=== PATIENT | female | born 1975 | race Hispanic/Latino ===

== ENCOUNTER 2017-03-30 14:42 | Emergency (ER) | payer SELFPAY ==
[~2017-03-30] VITALS: Ht 157.5 cm; Wt 65.8 kg
[~2017-03-30 14:42] MED LIST: AMOX500C2 PO; CYCL10TA9 PO; DIABETIC MEDICATION PO; DICY20TA57 PO; FLUO20CA25 PO; IBUP-1773 PO; LMT25T PO; LORA10TA7 PO; METF500T8 PO; MTF500T PO; OLAN1CAP PO; ONDA-43 PO; POLY17PO23 PO; QTP25T PO; SULF1TAB35 PO; TOPI25CA2 PO; TRAM50TA2 PO; ZLP10T PO
--- OUTSIDE RECORDS SUMMARY | 2017-03-30 14:49 | XMS REPORT ---
Author Author FILIBERTO SCHMIDT [facility] eClinicalWorks Address Unknown Phone Unavailable Care Team Providers Care Commercial Sales Manager Name Role Phone FILIBERTO SCMHIDT CP Unavailable Allergies No Known Allergies Problems Problem Type Condition ICD-9 Code Onset Dates Condition Status Problem Screening for malignant neoplasm of the cervix V76.2 Active Problem Other specified menopausal and postmenopausal disorder 627.8 Active Problem Special screening examination, human papillomavirus [HPV] V73.81 Active Problem Other mental problems V40.2 Active Problem Shortness of breath 786.05 Active Problem Unspecified viral infection, in conditions classified elsewhere and of unspecified site 079.99 Active Problem Unspecified episodic mood disorder 296.90 Active Problem Family history of diabetes mellitus V18.0 Active Problem Vomiting alone 787.03 Active Problem Other and unspecified bipolar disorders 296.89 Active Problem Mastodynia 611.71 Active Problem Unspecified peripheral vertigo 386.10 Active Problem Cellulitis and abscess of unspecified site 682.9 Active Problem Other abnormal glucose 790.29 Active Problem Bipolar disorder, unspecified 296.80 Active Problem Abdominal pain, generalized 789.07 Active Problem Candidiasis of vulva and vagina 112.1 Active Problem Contusion of shoulder region 923.00 Active Problem Lumbago 724.2 Active Problem Spasm of muscle 728.85 Active Problem Urinary tract infection, site not specified 599.0 Active Problem Diabetes mellitus without mention of complication, type II or unspecified type, not stated as uncontrolled 250.00 Active Problem Insomnia, unspecified 780.52 Active Problem Screening examination for venereal disease V74.5 Active Medications No Known Medications Results No Known Results Summary Purpose eClinicalWorks Submission
--- OUTSIDE RECORDS SUMMARY | 2017-03-30 14:49 | XMS REPORT ---
Author Author FILIBERTO SCHMIDT eClinicalWorks Address Unknown Phone Unavailable Care Team Providers Care Tannery Gummer Name Role Phone FILIBERTO SCHMIDT CP Unavailable Allergies No Known Allergies Problems Problem Type Condition Code Onset Dates Condition Status Problem Screening [...]
--- OUTSIDE RECORDS SUMMARY | 2017-03-30 14:49 | XMS REPORT ---
Author Author FILIBERTO SCHMIDT [facility] eClinicalWorks Address Unknown Phone Unavailable Care Team Providers Care Communications Technologist Name Role Phone FILIBERTO SCHMIDT CP Unavailable Allergies No Known Allergies Problems Problem Type Condition Code Onset Dates Condition Status Problem Diabetes mellitus without mention of complication, type II or unspecified type, not stated as uncontrolled 250.00 Active Problem Screening for malignant neoplasm of the cervix V76.2 Active Problem Family history of diabetes mellitus V18.0 Active Problem Special screening examination, human papillomavirus [HPV] V73.81 Active Problem Unspecified episodic mood disorder 296.90 Active Problem Other specified menopausal and postmenopausal disorder 627.8 Active Problem Other and unspecified bipolar disorders 296.89 Active Problem Mastodynia 611.71 Active Problem Generalized anxiety disorder F41.1 Active Problem Vomiting alone 787.03 Active Problem Candidiasis of vulva and vagina 112.1 Active Problem Abdominal pain, generalized 789.07 Active Problem 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 Active Problem Shortness of breath 786.05 Active Problem Unspecified peripheral vertigo 386.10 Active Problem Cellulitis and abscess of unspecified site 682.9 Active Problem Other mental problems V40.2 Active Problem Unspecified viral infection, in conditions classified elsewhere and of unspecified site 079.99 Active Problem Spasm of muscle 728.85 Active Problem Insomnia, unspecified 780.52 Active Problem Other abnormal glucose 790.29 Active Problem Bipolar disorder, unspecified 296.80 Active Problem Urinary tract infection, site not specified 599.0 Active Problem Screening examination for venereal disease V74.5 Active Problem Contusion of shoulder region 923.00 Active Problem Lumbago 724.2 Active Medications Medication Code System Code Instructions Start Date End Date Status Dosage Zyprexa [facility] [address]-71 5 MG Orally Once a day Jul 26, 2015 1 tablet Prozac [facility] [address]-53 20 MG Orally Once a day Jul 26, 2015 1 capsule in the morning Results No Known Results Summary Purpose eClinicalWorks Submission
--- OUTSIDE RECORDS SUMMARY | 2017-03-30 14:49 | XMS REPORT ---
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 Active Problem Diabetes mellitus without mention of [...] Instructions Start Date End Date Status Dosage HydrOXYzine Pamoate [facility] [address]-97 25 MG Orally at bedtime for anxiety as needed January 24, 2016 1 capsule as needed Prozac [facility] [address]-35 20 mg Orally Once a day Jul 26, 2015 1 capsule in the morning Depuk healthcarete [facility] [address]-00 500 MG Orally Once a day at bedtime February 14, 2016 1 tablet Procedures Procedure Coding System Code Date MH Office Visit, Est Pt., Level 4 CPT-4 84437 May 22, 2016 Vital Signs Date/Time: May 22, 2016 Cardiac Monitoring Heart Rate 84 bpm Weight 177.3 lbs Height 62 in BMI 32.43 Index Blood Pressure Diastolic 77 mmHg Blood Pressure Systolic 119 mmHg Results No Known Results Summary Purpose eClinicalWorks Submission
--- OUTSIDE RECORDS SUMMARY | 2017-03-30 14:49 | XMS REPORT ---
Author Author FILIBERTO SCHMIDT eClinicalWorks Address Unknown Phone Unavailable Care Team Providers Care Dealer Account Manager Name Role Phone FILIBERTO SCHMIDT CP Unavailable [...] Start Date End Date Status Dosage Zyprexa [facility] [address]-23 5 MG Orally Once a day Jul 26, 2015 1 tablet Prozac [facility] [address]-23 20 MG Orally Once a day Jul 26, 2015 1 capsule in the morning Procedures Procedure Coding System Code Date Office Visit, Est Pt., Level 4 CPT-4 64289 Jul 26, 2015 Vital Signs Date/Time: Jul 26, 2015 Temperature 98.2 F Weight 142.0 lbs Height 62 in BMI 25.97 Index Blood Pressure Diastolic 70 mmHg Blood Pressure Systolic 102 mmHg Cardiac Monitoring Heart Rate 80 bpm Results No Known Results Summary Purpose eClinicalWorks Submission
--- OUTSIDE RECORDS SUMMARY | 2017-03-30 14:49 | XMS REPORT ---
Author Author FILIBERTO SCHMIDT [facility] eClinicalWorks Address Unknown Phone Unavailable Care Team Providers Care Accessioner Name Role Phone FILIBERTO SCHMIDT CP Unavailable [...] 923.00 Active Problem Lumbago 724.2 Active Medications No Known Medications Results No Known Results Summary Purpose eClinicalWorks Submission
--- OUTSIDE RECORDS SUMMARY | 2017-03-30 14:49 | XMS REPORT ---
Author Author JOSESITO LUKE [facility] eClinicalWorks Address Unknown Phone Unavailable Care Team Providers Care Director Of Food And Nutrition Services Name Role Phone JOSESITO LUKE CP Unavailable Allergies, Adverse Reactions, Alerts Substance Reaction Event Type Zyprexa rash Drug Allergy Cipro rash Drug Allergy Problems Problem Type Condition Code Onset Dates Condition Status Assessment Otalgia of right ear H92.01 Active Problem Diabetes mellitus without mention of [...] Instructions Start Date End Date Status Dosage Seroquel XR [facility] [address]-18 150 MG TAKE ONE TABLET BY MOUTH DAILY 4 HOURS BEFORE BEDTIME Lamictal [facility] [address]-36 25 MG Orally Twice a day January 30, 2015 1 tablet Procedures Procedure Coding System Code Date Office Visit, Est Pt., Level 2 CPT-4 50462 Jul 26, 2015 Vital Signs Date/Time: Jul 26, 2015 Temperature 98.2 F Weight 142.0 lbs Height 62 in BMI 25.97 Index Blood Pressure Diastolic 70 mmHg Blood Pressure Systolic 100 mmHg Cardiac Monitoring Heart Rate 80 bpm Results No Known Results Summary Purpose eClinicalWorks Submission
--- OUTSIDE RECORDS SUMMARY | 2017-03-30 14:49 | XMS REPORT ---
Author Author FILIBERTO SCHMIDT [facility] Address [address] [place] [address] Care Team Providers Care Architectural Examiner Name Role Phone FILIBERTO SCHMIDT Unavailable PROBLEMS Type Condition ICD9-CM Code TNZ00-EB Code Onset Dates Condition Status SNOMED Code Problem Diabetes mellitus without mention of complication, type II or unspecified type, not stated as uncontrolled 250.00 Active 501627536 Problem Family history of diabetes mellitus V18.0 Active 475452951 Problem Unspecified episodic mood disorder 296.90 Active 170827540 Problem Other specified menopausal and postmenopausal disorder 627.8 Active 258020797 Problem Shortness of breath 786.05 Active 114032123 Problem Mastodynia 611.71 Active 18479918 Problem Abdominal pain, generalized 789.07 Active 283838975 Problem Other and unspecified bipolar disorders 296.89 Active 02024058 Problem Unspecified peripheral vertigo 386.10 Active 95247286 Problem Cellulitis and abscess of unspecified site 682.9 Active 782760658 Problem Bipolar disorder in remission F31.70 Active 59608631 Problem 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 Active 03113219 Problem Bipolar disorder, unspecified 296.80 Active 59011465 Problem Other abnormal glucose 790.29 Active 641892170 Problem Candidiasis of vulva and vagina 112.1 Active 51215599 Problem Other mental problems V40.2 Active Problem Unspecified viral infection, in conditions classified elsewhere and of unspecified site 079.99 Active 09460472 Problem Generalized anxiety disorder F41.1 Active 79460448 Problem Vomiting alone 787.03 Active 548149461 Problem Contusion of shoulder region 923.00 Active 00288596 Problem Lumbago 724.2 Active 924188648 Problem Spasm of muscle 728.85 Active 60251020 Problem Insomnia, unspecified 780.52 Active 536599324 Problem Screening for malignant neoplasm of the cervix V76.2 Active 045675827 Problem Special screening examination, human papillomavirus [HPV] V73.81 Active 663671743 Problem Urinary tract infection, site not specified 599.0 Active 76649349 Problem Screening examination for venereal disease V74.5 Active 526585498 ALLERGIES Unknown Allergies SOCIAL HISTORY No smoking Hx information available PLAN OF CARE VITAL SIGNS MEDICATIONS Unknown Medications RESULTS No Results PROCEDURES No Known procedures IMMUNIZATIONS No Known Immunizations
--- OUTSIDE RECORDS SUMMARY | 2017-03-30 14:50 | XMS REPORT ---
Author Author FILIBERTO SCHMIDT [facility] eClinicalWorks Address Unknown Phone Unavailable Care Team Providers Care Project Estimator Name Role Phone FILIBERTO SCHMIDT CP Unavailable [...] Instructions Start Date End Date Status Dosage Depakote ER [facility] [address]-12 500 MG Orally Once a day at bedtime February 14, 2016 1 tablet [facility] [address] 180 MG Orally 2 times a day for 7 days February 14, 2016 1 tablet Results No Known Results Summary Purpose eClinicalWorks Submission
--- NOTE | 2017-03-30 16:59 | ED Psychosocial ---
General Chief Complaint: Psych/Social Disorder Stated Complaint: SOA Nursing Triage Note: SOB, CHILLS AFTER TAKING NEW ANTIDEPRESSANT TODAY. STATES SHE TOOK THE PILL, FELT LIKE SHE WAS CHOKING THEN SOB. Source: patient Exam Limitations: no limitations History of Present Illness Initial Comments Behavioral health provider is Delisa Valencia. Allergies and Home Medications Allergies Coded Allergies: ciprofloxacin (Verified Allergy, 06/05/11) ciprofloxacin HCl (Verified Allergy, 06/05/11) olanzapine (Unverified Adverse Reaction, Mild, rash, 01/15/12) Home Medications Fluoxetine Hcl 20 Mg Capsule, 1 EACH PO DAILY, (Reported) Ibuprofen 600 Mg Tablet, 600 MG PO Q6H PRN for PAIN, #20 Prescribed by: KAVON MEYERS on 11/12/13151 Lamotrigine 25 Mg Tab, 25 MG PO DAILY, (Reported) Metformin Hcl 500 Mg Tab.sr.24h, 2 EACH PO BID WITH MEALS, (Reported) Polyethylene Glycol 17 Gm Pack, 17 GM PO DAILY PRN for CONSTIPATION, #30 1-2 times daily FOR CONSTIPATION Prescribed by: KAVON MEYERS on 11/12/13151 Quetiapine Fumarate 25 Mg Tablet, 3 TAB PO HS, (Reported) Past Ointsrs-Lcerth-Ixcdjw Hx Patient Social History Alcohol Use: Denies Use Recreational Drug Use: No Smoking Status: Never a Smoker Recent Foreign Travel: No Contact w/Someone Who Travel: No Recent Infectious Disease Expo: No Immunizations Up To Date Date of Influenza Vaccine: Jul 03, 2013 Surgeries History of Surgeries: Yes Surgeries: Appendectomy, Tubal Ligation Respiratory History of Respiratory Disorde: No Cardiovascular History of Cardiac Disorders: No Neurological History of Neurological Disord: No Reproductive System Hx Reproductive Disorders: No (STATES MENSES EVERY MONTH , NONE IN SEP) Gastrointestinal History of Gastrointestinal Di: No Musculoskeletal History of Musculoskeletal Dis: No Endocrine History of Endocrine Disorders: Yes Endocrine Disorders: Diabetes, Non-Insulin dep Cancer History of Cancer: No Psychosocial History of Psychiatric Problem: Yes Behavioral Health Disorders: Sleep Difficulties, Depression Physical Exam Vital Signs Vital Sign - Last 12Hours 03/30/17 14:45 Temp 97.5 Pulse 87 Resp 18 B/P (MAP) 130/99 Pulse Ox 99 Capillary Refill : Less Than 3 Seconds Progress/Results/Core Measures Results/Orders Vital Signs/I&O Vital Sign - Last 12Hours 03/30/17 14:45 Temp 97.5 Pulse 87 Resp 18 B/P (MAP) 130/99 Pulse Ox 99 Blood Pressure Mean: 109 Departure Impression Impression: Primary Impression: Severe anxiety about anesthesia and home medications Additional Impression: Insomnia Qualified Codes: G47.00 - Insomnia, unspecified Disposition: HOME, SELF-CARE Condition: Improved Departure-Patient Inst. Decision time for Depature: 16:56 Referrals: NO,LOCAL PHYSICIAN (PCP/Family) Primary Care Physician Patient Instructions: Anxiety, Adult (DC), Insomnia Add. Discharge Instructions: I suggest talking to your prescriber about decreasing your Seroquel dose before you try it again. When you take it again, make sure somebody is nearby to help you if you have any problems. Because you have problems with taking any kind of pill, talk to your behavioral health provider about desensitizing your self to taking pills. All discharge instructions reviewed with patient and/or family. Voiced understanding. Copy Copies To 1: NADIA QUIÑONEZ MD, JOSHUA T MD Mar 30, 2017 16:59
[2017-03-30 17:12] VITALS: BP 120/75
== END 2017-03-30 17:12 | disposition home or self-care (01) ==
LOC: EDUNIT# 14:42 → ER 14:45
DX: F41.8 Other specified anxiety disorders (principal); G47.00 Insomnia, unspecified; E11.9 Type 2 diabetes mellitus without complications; F32.9 Major depressive disorder, single episode, unspecified; Z79.84 Long term (current) use of oral hypoglycemic drugs; Z90.49 Acquired absence of other specified parts of digestive tract; Z98.51 Tubal ligation status
CPT/HCPCS: 99283

== ENCOUNTER → 2017-10-26 | Outpatient (CLI) | payer BC ==
--- NOTE | 2017-10-26 19:41 | Diagnostic Imaging Report ---
INDICATION: Palpable lump in the right breast. COMPARISON: No prior studies are available for comparison. A BB marker was placed at the area of palpable abnormality in the upper-outer right breast. Bilateral 3-D CC and MLO views as well as the right-sided ML and exaggerated CC view were performed. The current study was also evaluated with a Computer Aided Detection (CAD) system. FINDINGS: Moderate density is noted bilaterally. No abnormality in the right breast at the area of palpable abnormality is seen. There is a rounded density in the upper-outer left breast at 8 cm from the nipple, likely a cyst. No suspicious calcifications are seen. The axillae are unremarkable. IMPRESSION: 1. No mammographic abnormality at the area of palpable abnormality in the upper-outer right breast. Further evaluation of this area with ultrasound is recommended. 2. Circumscribed density in the upper-outer left breast, 8 cm from the nipple, likely a cyst. Further evaluation of this area with ultrasound is recommended as well. ACR BI-RADS Category 0: Incomplete. (Needs additional imaging evaluation). Result letter will be mailed to the patient. Note: At least 10% of breast cancer is not imaged by mammography. Dictated by: Dictated on workstation # [id number]
--- NOTE | 2017-10-26 19:49 | Diagnostic Imaging Report ---
INDICATION: Palpable lump in the upper-outer right breast as well as abnormal mammogram of the left breast. The study is performed for further evaluation. COMPARISON: Correlation is made with diagnostic mammogram earlier the same day. FINDINGS: RIGHT BREAST: Sonographic interrogation of the area of lump in the upper-outer right breast was performed. No solid or cystic mass is identified. LEFT BREAST: Sonographic interrogation of the upper-outer left breast was performed. At the 1:30 location, 8 cm from the nipple, there is a macrolobulated hypoechoic solid appearing mass measuring 1.7 x 0.9 x 1.5 cm. This appears to demonstrate posterior acoustic enhancement and is most suggestive of a fibroadenoma. This does correspond in size and location to the mammographic density. No other abnormalities are seen. IMPRESSION: 1. No sonographic abnormality at the area of palpable abnormality in the upper-outer right breast. Continued close clinical followup and self-breast exam of the area of palpable abnormality is recommended to confirm stability. 2. Macrolobulated hypoechoic solid mass at the 1:30 location of the left breast, with features most suggestive of a fibroadenoma. Followup ultrasound in six months is recommended to confirm stability. ACR BI-RADS Category 3: Probably benign findings. Dictated by: Dictated on workstation # [id number]
== END ==
LOC: RAD 13:14
PROVIDERS: ATTEND Nurse Practitioner Family
DX: N63.21 Unspecified lump in the left breast, upper outer quadrant (principal); N63.10 Unspecified lump in the right breast, unspecified quadrant
CPT/HCPCS: 76642; 77066

== ENCOUNTER 2018-01-27 14:23 | Emergency (ER) | payer SELFPAY ==
[~2018-01-27] VITALS: Ht 157.5 cm; Wt 71.7 kg
--- OUTSIDE RECORDS SUMMARY | 2018-01-27 14:31 | XMS REPORT ---
Author Author ALEXANDRU ARACELIS Organization 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 Name Role Phone JASWANTMARCELLUS ARACELIS Unavailable PROBLEMS Type Condition ICD9-CM Code AYL76-BU Code Onset Dates Condition Status SNOMED Code Problem History of hypertension Z86.79 Active 024255865 Problem Elevated LDL cholesterol level E78.00 Active 620342550 Problem Personality disorder F60.9 Active 69164245 Problem Other chronic pain G89.29 Active 67033713 Problem Hypoglycemia E16.2 Active 299200046 Problem Acute seasonal allergic rhinitis, unspecified trigger J30.2 Active 141663712 Problem Type 2 diabetes mellitus without complication, without long-term current use of insulin E11.9 Active 228970615 Problem Primary insomnia F51.01 Active 3749265 Problem Acute non intractable tension-type headache G44.209 Active 331274431 Problem Generalized anxiety disorder F41.1 Active 82421005 Problem Bipolar disorder in remission F31.70 Active 96171711 Problem Family history of diabetes insipidus Z83.49 Active 664265908 Problem Abnormal CBC R79.89 Active 313552508 Problem Bipolar disorder, current episode mixed, mild F31.61 Active 342416543 Problem History of diabetes mellitus Z86.39 Active 626799499 Problem Overweight (BMI 25.0-29.9) E66.3 Active 505710773 Problem Sore throat J02.9 Active 070505268 ALLERGIES Substance Reaction Event Type Date Status MetFORMIN HCl ER nausea Drug Allergy Aug, Active Zyprexa rash Drug Allergy Aug, Active Cipro rash Drug Allergy Aug, Active ENCOUNTERS Encounter Location Date Diagnosis [facility] [address] [facility] [id number] [address] Jan, [facility] [address] [facility] [id number], [place] [address] Jan, Bipolar disorder, current episode mixed, mild F31.61 and Personality disorder F60.9 [facility] [id number] [place] [address] 98787- 4591 Jan, Cyst of ovary, unspecified laterality N83.209 [facility] [id number] [place] [address] 21709- 9379 December, Cyst of ovary, unspecified laterality N83.209 [facility] [id number] [place] [address] 90439- 8913 December, [place] [address] [address]79- 6415 December, Dysuria R30.0 [place] [address] 68468- 8469 December, [facility] [address] 87397- 3390 Nov, Bipolar disorder, current episode mixed, mild F31.61 and Personality disorder F60.9 [facility] [id number] [place] [address] 01935- 8751 Nov, Elevated LDL cholesterol level E78.00 and Type 2 diabetes mellitus without complication, without long-term current use of insulin E11.9 [facility] [id number] [place] [address] 22915- 4599 Nov, Elevated LDL cholesterol level E78.00 and Type 2 diabetes mellitus without complication, without long-term current use of insulin E11.9 [facility] [id number] [place] [address] 87205- 3893 Nov, Other chronic pain G89.29 and Pain in left leg M79.605 [facility] [id number] [place] [address] 77751- 4156 02 Nov, 2017 Acute pain of left knee M25.562 ; Syncope, unspecified syncope type R55 and Hypoglycemia E16.2 [place] [address] 59050- 2406 30 Oct, 2017 Syncope, unspecified syncope type R55 [facility] [id number] [place] [address] 14237- 5106 Oct, Bipolar disorder, current episode mixed, mild F31.61 and Personality disorder F60.9 [place] [address] 92865- 3800 Oct, Lump of right breast N63.10 [facility] [id number] [place] [address] 91727- 7857 Oct, Generalized anxiety disorder F41.1 [place] [address] 61861- 9435 Oct, Generalized anxiety disorder F41.1 ; Bipolar disorder in remission F31.70 ; Bipolar disorder, current episode mixed, mild F31.61 and Primary insomnia F51.01 [place] [address] 19299- 9339 Oct, Primary insomnia F51.01 and Lump of right breast N63.10 [place] [address] 30616- 4371 16 Oct, 2017 Enteritis K52.9 [facility] [id number] [place] [address] 17074 -3810 14 Oct, 2017 Allergic conjunctivitis of both eyes H10.13 and Acute non intractable tension-type headache G44.209 [facility] [id number] [place] [address] 89333- 1238 14 Oct, 2017 [facility] [id number] [place] [address] 69743- 9052 Oct, Bipolar disorder, current episode mixed, mild F31.61 [facility] [id number] [place] [address] 38469- 8039 Sep, Right flank pain R10.9 and Thoracic spine pain M54.6 [facility] [address] [place] [address] 2191 16 Sep, 2017 Generalized anxiety disorder F41.1 and Bipolar disorder, current episode mixed, mild F31.61 [facility] [id number] [place] [address] 03037- 3283 14 Sep, 2017 [facility] [place] [id number] [place] [address] 03988- 3003 Sep, Generalized anxiety disorder F41.1 ; Bipolar disorder in remission F31.70 and Personality disorder F60.9 [facility] [id number] [place] [address] 94466- 2710 12 Sep, 2017 Spasm of thoracic back muscle M62.830 ; Type 2 diabetes mellitus without complication, without long-term current use of insulin E11.9 and Generalized anxiety disorder F41.1 [facility] [id number] [place] [address] 34858- 0251 Sep, Bipolar disorder, current episode mixed, mild F31.61 and Personality disorder F60.9 [place] [id number] [place] [address] 27988- 4235 Aug, [facility] [id number] [place] [address] 04728- 4656 Aug, Bipolar disorder, current episode mixed, mild F31.61 and Personality disorder F60.9 [place] [id number] [place] [address] 77320- 6221 Aug, Type 2 diabetes mellitus without complication, without long- term current use of insulin E11.9 ; Generalized anxiety disorder F41.1 ; Bipolar disorder in remission F31.70 and Overweight (BMI 25.0-29.9) E66.3 [place] [id number] [place] [address] 52905- 5194 Aug, Type 2 diabetes mellitus without complication, without long- term current use of insulin E11.9 ; Elevated LDL cholesterol level E78.00 and Bipolar disorder, current episode mixed, mild F31.61 [facility] [id number] [place] [address] 42329 -7694 Jul, Vaginal discharge N89.8 ; Skin irritation R23.8 and Dysuria R30.0 [facility] [id number] [place] [address] 30333 -4462 Jul, Acute seasonal allergic rhinitis, unspecified trigger J30.2 and Chest pain, unspecified type R07.9 [place] [id number] [place] [address] 03990- 6601 Jun, Bipolar disorder, current episode mixed, mild F31.61 [place] [address] 955719- 5652 Jun, [place] [address] 486289- 4291 Jun, Bipolar disorder, current episode mixed, mild F31.61 and Personality disorder F60.9 [place] [id number] [place] [address] 46278- 8359 Jun, [place] [id number] [place] [address] 81925- 6735 Jun, Type 2 diabetes mellitus without complication, without long- term current use of insulin E11.9 and Dysuria R30.0 [place] [id number] [place] [address] 08351- 9195 May, Bipolar disorder, current episode mixed, mild F31.61 ; Personality disorder F60.9 and Homeless Z59.0 [place] [id number] [place] [address] 50380- 3947 May, Type 2 diabetes mellitus without complication, without long- term current use of insulin E11.9 [place] [id number] [place] [address] 45404- 1168 May, History of hypertension Z86.79 [facility] [id number] [place] [address] 04446- 9948 May, [place] [id number] [place] [address] 04800- 5000 02 May, 2017 Type 2 diabetes mellitus without complication, without long- term current use of insulin E11.9 ; Elevated LDL cholesterol level E78.00 ; Low serum HDL R74.8 and Encounter for immunization Z23 [facility] [id number] [place] [address] 94442- 4036 Apr, Encounter to establish care Z76.89 ; Abnormal CBC R79.89 ; History of hypertension Z86.79 ; Overweight (BMI 25.0-29.9) E66.3 ; Family history of diabetes insipidus Z83.49 ; Sore throat J02.9 and Tonsillitis with exudate J03.90 [place] [address] 10287- 0070 Apr, Bipolar disorder, current episode mixed, mild F31.[address] 28718- 2118 Mar, [place] [address] 65398- 5326 Mar, Bipolar disorder, current episode mixed, mild F31.61 [place] [address] 13746- 5621 Mar, [place] [address] 95501- 6162 Mar, Bipolar disorder in remission F31.70 [place] [id number] [place] [address] 35672- 4341 Jan, [place] [address] 27025- 2036 Jan, [address] 47353- 8910 Oct, Generalized anxiety disorder F41.1 and Bipolar disorder in remission F31.70 [place] [address] 04792- 6352 Oct, [facility] [address] [address]288 Oct, [facility] [address] [address] 9572 Oct, [facility] [address] [address] 4986 Oct, [facility] [id number] [place] [address] 44508- 5339 Jul, [facility] [address], [place] [address]- 9211 Jun, [facility] [address] [place] [address] 57323- 3636 May, 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 and Generalized anxiety disorder F41.1 [facility] [address] [place] [address] 10641- 7966 Jan, [facility] [address] [address]- 3139 Jan, [facility] [address] [place] [address] 353286- 9470 Jan, 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 and Generalized anxiety disorder F41.1 [facility] [address], [place] [address]- 7026 Sep, [facility] [address], [place] [address]- 69[address] Sep, [facility] [id number] [address]- 6432 Jul, 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 and Generalized anxiety disorder F41.1 [facility] [address] 4206 Jul, Otalgia of right ear H92.01 [facility] [address], [place] [address]- 6969 Jun, [facility] [address], [place] [address]- 4769 Mar, [facility] [address], [place] [address]- 6570 Jan, [facility] [id number] [place] [address] 09393- 2853 Jan, [facility] [id number] [place] [address] 19590- 0894 Jan, Bipolar 1 disorder, mixed, moderate 296.62 and SHERRY ( generalized anxiety disorder) 300.02 [facility] [id number] [place] [address] 535713- 6454 Jan, [facility] [id number] [place] [address] 45091- 3833 Nov, [facility] [id number] [place] [address] 44130- 0070 Nov, [facility] [address], [place] [address]- 8016 Oct, [facility] [address] 1805 Oct, [facility] [address], [place] [address]- 1075 Mar, [facility] [address], [place] [address]- 8907 Mar, [facility] [address] 4061 Jan, [facility] [address] 5213 Jan, [facility] [address], [place] [address]- 2609 December, [facility] [id number] [address]- 4024 December, [facility] [place] [facility] [address] [id number] [place] [address]- 5186 December, [facility] [place] [facility] [address] [id number] [place] [address]- 3173 December, [facility] [place] [facility] [address] [id number] [place] [address]- 6586 December, [facility] [place] [facility] [address] [id number] [place] [address]- 1145 December, [facility] [place] [facility] [address] [id number] [place] [address]- 3950 December, [facility] [place] [facility] [address] [id number] [place] [address]- 7803 December, [facility] [place] [facility] [address] [id number] [place] [address]- 8059 Nov, [facility] [place] [facility] [address] [id number] [place] [address]- 4676 Nov, [facility] [place] [facility] [address] [id number] [place] [address]- 0971 Oct, [facility] [place] [facility] [address] [id number] [place] [address]- 9843 Oct, [facility] [place] [facility] [address] [id number] [place] [address]- 4148 Oct, [facility] [place] [facility] [address] [id number] [place] [address]- 3420 Oct, [facility] [place] [facility] [address] [id number] [place] [address]- 7380 Oct, [facility] [place] [facility] [address] [id number] [place] [address]- 3527 Sep, [facility] [place] [facility] [address] [id number] [place] [address]- 5868 Sep, [facility] [place] [facility] [address] [id number] [place] [address]- 3883 14 Sep, 2013 [facility] [place] [facility] [address] [id number] [place] [address]- 6342 14 Sep, 2013 [facility] [place] [facility] [address] [id number] [place] [address]- 1855 27 Aug, 2013 [facility] [place] [facility] [address] [id number] [place] [address]- 1683 27 Aug, 2013 [facility] [place] [facility] [address] [id number] [place] [address]- 2105 Aug, [facility] [place] [facility] [address] [id number] [place] [address]- 9575 Aug, [facility] [place] [facility] [address] [id number] [place] [address]- 1109 Aug, [facility] [place] [facility] [address] [id number] [place] [address]- 1110 16 Jul, 2013 [facility] [place] [facility] [address] [id number] [place] [address]- 2823 Jul, [facility] [place] [facility] [address] [id number] [place] [address]- 4495 Jul, [facility] [place] [facility] [address] [id number] [place] [address]- 3820 Jul, [facility] [place] [facility] [address] [id number] [place] [address]- 4753 Jun, [facility] [place] [facility] [address] [id number] [place] [address]- 0914 Jun, [facility] [place] [facility] [address] [id number] [place] [address]- 7040 May, [facility] [place] [facility] [address] [id number] [place] [address]- 6136 May, [facility] [place] [facility] [address] [id number] [place] [address]- 3486 May, [facility] [place] [facility] [address] [id number] [place] [address]- 2228 18 May, 2013 [facility] [place] [facility] [address] [id number] [place] [address]- 1012 May, [facility] [place] [facility] [address] [id number] [place] [address]- 2504 15 May, 2013 [facility] [place] [facility] [address] [id number] [place] [address]- 6948 May, [facility] [place] [facility] [address] [id number] [place] [address]- 4176 May, [facility] [place] [facility] [address] [id number] [place] [address]- 9527 May, [facility] [place] [facility] [address] [id number] [place] [address]- 2515 Apr, [facility] [place] [facility] [address] [id number] [place] [address]- 5758 Apr, [facility] [place] [facility] [address] [id number] [place] [address]- 1194 Mar, [facility] [place] [facility] [address] [id number] [place] [address]- 1772 Mar, [facility] [place] [facility] [address] [id number] [place] [address]- 9873 Mar, [facility] [place] [facility] [address] [id number], [place] [address]- 1624 Mar, [facility] [place] [facility] [address] [id number] [place] [address]- 1375 Mar, [facility] [place] [facility] [address] [id number] [place] [address]- 7694 Mar, [facility] [place] [facility] [address] [id number] [place] [address]- 0372 Mar, [facility] [place] [facility] [address] [id number] [place] [address]- 3817 Mar, [facility] [address] [id number] [place] [address]- 3288 Mar, [facility] [address] [id number] [place] [address]- 1837 Mar, [facility] [address] [id number] [place] [address]- 4863 Mar, [facility] [address] [id number] [place] [address]- 0899 Jan, [facility] [address] [id number] [place] [address]- 6408 Jan, [facility] [address] [id number] [place] [address]- 1138 Jan, [facility] [address] [id number] [place] [address]- 9096 December, [facility] [address] [id number] [place] [address]- 5297 December, [facility] [address] [id number] [place] [address]- 7816 Nov, [facility] [address] [id number] [place] [address]- 2381 Nov, [facility] [address] [id number] [place] [address]- 9727 Oct, [facility] [address] [id number] [place] [address]- 9670 Oct, [facility] [address] [id number] [place] [address]- 8775 Oct, [facility] [address] [id number] [place] [address]- 5477 Oct, [facility] [address] [id number] [place] [address]- 7697 Oct, [facility] [place] [facility] [address] [id number] [place] [address]- 4230 19 Oct, 2012 [facility] [address] [id number] [place] [address]- 9023 17 Oct, 2012 [facility] [address] [id number] [place] [address]- 9077 16 Oct, 2012 [facility] [place] [facility] [address] [id number] [place] [address]- 5983 14 Oct, 2012 [facility] [address] [id number] [place] [address]- 2981 13 Oct, 2012 [facility] [place] [facility] [address] [id number] [place] [address]- 6243 05 Oct, 2012 [facility] [address] [id number] [place] [address]- 4585 14 Sep, 2012 [facility] [address] [id number] [place] [address]- 4849 08 Sep, 2012 [facility] [place] [facility] [address] [id number] [place] [address]- 6214 Aug, [facility] [address] [id number], [place] [address]- 3003 Aug, [facility] [address] [id number], [place] [address]- 0260 Aug, [facility] [place] [facility] [address] [id number], [place] [address]- 8451 Aug, [facility] [place] [facility] [address] [id number] [place] [address]- 1671 Aug, [facility] [place] [facility] [address] [id number] [place] [address]- 2216 Jul, [facility] [place] [facility] [address] [id number], [place] [address]- 9324 Jul, [facility] [place] [facility] [address] [id number], [place] [address]- 7943 Jul, [facility] [address] [id number] [place] [address]- 9356 19 Jul, 2012 [facility] [place] [facility] [address] [id number] [place] [address]- 1376 18 Jul, 2012 [facility] [address] [facility] [id number] [place] [address]- 3596 17 Jul, 2012 [facility] [place] [facility] [address] [id number] [place] [address] 14 Jul, 2012 [facility] [address] [id number] [place] [address] 14 Jul, 2012 [facility] [address] [id number] [place] [address] Jul, [facility] [id number] [address] Jul, [facility] [place] [facility] [address] [id number] [place] [address] Jul, [facility] [place] [facility] [address] [id number] [address] 05 Jul, 2012 [facility] [place] [facility] [address] [facility] [id number] [place] [address] Jul, [facility] [place] [facility] [address] [facility] [id number] [place] [address] Jul, [facility] [place] [facility] [address] [id number] [address] Jul, [facility] [place] [facility] [address] [id number] [place] [address] Jul, [facility] [place] [facility] [address] [facility] [id number] [place] [address] Jun, [facility] [place] [facility] [address] [id number] [address] Jun, [facility] [place] [facility] [address] [id number] [place] [address] Jun, [facility] [place] [facility] [address] [id number] [place] [address] Jun, [facility] [place] [facility] [address] [id number] [place] [address]- [address] Jun, [facility] [place] [facility] [address] [id number] [place] [address] Jun, [facility] [place] [facility] [address] [id number] [place] [address] Jun, [facility] [place] [facility] [address] [id number] [place] [address] Jun, [facility] [place] [facility] [address] [id number] [place] [address] Jun, [facility] [place] [facility] [address] [id number] [place] [address] May, [facility] [place] [facility] [address] [id number] [place] [address] Mar, [facility] [place] [facility] [address] [id number] [place] [address] Mar, [facility] [place] [facility] [address] [id number] [place] [address] Mar, [facility] [place] [facility] [address] [id number] [place] [address] Mar, [facility] [place] [facility] [address] [id number] [place] [address] Jan, [facility] [place] [facility] [address] [id number] [place] [address] Jan, [facility] [place] [facility] [address] [id number] [place] [address] 94[address] Jan, [facility] [place] [facility] [address] [id number] [place] [address] Jan, [facility] [place] [facility] [address] [id number] [place] [address] Jan, [facility] [place] [facility] [address] [id number] [place] [address] Jan, [facility] [place] [facility] [address] [id number] [place] [address] December, [facility] [place] [facility] [address] [id number] [place] [address] December, [facility] [place] [facility] [address] [id number] [place] [address] Nov, [facility] [place] [facility] [address] [id number] [place] [address] Nov, [facility] [place] [facility] [address] [id number] [place] [address] Oct, [facility] [place] [facility] [address] [id number] [place] [address] Oct, [facility] [place] [facility] [address] [id number] [place] [address] Oct, [facility] [place] [facility] [address] [id number] [place] [address] Oct, [facility] [place] [facility] [address] [id number] [place] [address] Aug, [facility] [place] [facility] [address] [id number], [place] [address] Aug, [facility] [place] [facility] [address] [id number] [place] [address] Jun, [facility] [place] [facility] [address] [id number] [place] [address] Jun, [facility] [place] [facility] [address] [id number] [place] [address] Jun, [facility] [place] [facility] [address] [id number] [place] [address] Jun, [facility] [place] [facility] [address] [id number] [place] [address] Jun, [facility] [place] [facility] [address] [id number] [place] [address] May, [facility] [place] [facility] [address] [id number] [place] [address] May, [facility] [place] [facility] [address] [id number] [place] [address] May, [facility] [place] [facility] [address] [id number] [place] [address] May, [facility] [place] [facility] [address] [id number] [place] [address] May, [facility] [place] [facility] [address] [id number] [place] [address] May, [facility] [place] [facility] [address] [id number] [place] [address] May, [facility] [place] [facility] [address] [id number] [place] [address] Mar, [facility] [place] [facility] [address] [id number] [place] [address] May, [facility] [place] [facility] [address] [id number] [place] [address] Jan, [facility] [place] [facility] [address] [id number] [place] [address] Jul, [facility] [place] [facility] [address] [id number] [place] [address] 24 Jun, 2009 [facility] [place] [facility] [address] [id number] [place] [address] 16 Jun, 2009 [facility] [place] [facility] [address] [id number] [place] [address] Jun, [facility] [address] [facility] [id number] [address] Jun, [facility] [id number] [address] Jun, [facility] [id number] [address] May, [facility] [id number] [address] May, [facility] [id number], [place] [address] May, [facility] [id number], [place] [address] Jul, IMMUNIZATIONS No Known Immunizations SOCIAL HISTORY Never Assessed REASON FOR VISIT f/u Perez PLAN OF CARE Activity Details Follow Up 4 Weeks Reason: VITAL SIGNS Height 62 in 2017-08-12 Weight 154.2 lbs 2017-08-12 Heart Rate 84 bpm 2017-08-12 Respiratory Rate 20 2017-08-12 BMI 28.20 kg/m2 2017-08-12 Blood pressure systolic 118 mmHg 2017-08-12 Blood pressure diastolic 70 mmHg 2017-08-12 MEDICATIONS Medication Instructions Dosage Frequency Start Date End Date Duration Status Atorvastatin Calcium 10 mg Orally Once a day 1 tablet 24h May, 90 days Active Melatonin 5 MG Orally take at bedtime 1 tablet Apr, Active Glimepiride 1 MG Orally Once a day 1 tablet with breakfast or the first main meal of the day 24h May, Active Lisinopril 5 mg Orally Once a day 1 tablet 24h 90 days Active Glucocard Expression Test 1 subcutaneously 2 times a day test 2 times per day 12h May, 12 months Active Trazodone HCl 100 mg Orally at bedtime as needed for sleep 1-2 tabs Apr, Active BusPIRone HCl 15 MG Orally 3 times a day 1 tablet 8h Aug, 30 days Active Aspir-81 81 MG Orally Once a day 1 tablet 24h 26 Apr, 2017 Jan, 90 days Active Abilify 5 MG Orally Once a day at bedtime 1 tablet 30 days Active Flonase 50 MCG/ACT Nasally Once a day 1 spray in each nostril 24h Jul, 30 day(s) Not-Taking RESULTS No Results PROCEDURES No Known procedures INSTRUCTIONS MEDICATIONS ADMINISTERED No Known Medications MEDICAL (GENERAL) HISTORY Type Description Date Medical History hypertension Medical History depression (hx of suicidal plan in 2012) Medical History insomnia Medical History bipolar disorder Surgical History Appendix Surgical History Tubal Ligation Hospitalization History Child /surgery Hospitalization History psych inpatient treatment, [facility] 2011
--- OUTSIDE RECORDS SUMMARY | 2018-01-27 14:32 | XMS REPORT ---
Author Author ALEXANDRU ARACELIS Organization [facility] Address [address] [place] [address] Care Team Providers Care Filters Assembler Name Role Phone JASWANTMARCELLUS ARACELIS Unavailable PROBLEMS Type Condition ICD9-CM Code [id number] Code Onset Dates Condition Status SNOMED Code Problem History of hypertension Z86.79 Active 520832669 Problem Elevated LDL cholesterol level E78.00 Active 116708952 Problem Personality disorder F60.9 Active 29515861 Problem Other chronic pain G89.29 Active 83573093 Problem Hypoglycemia E16.2 Active 254430870 Problem Acute seasonal allergic rhinitis, unspecified trigger J30.2 Active 922844478 Problem Type 2 diabetes mellitus without complication, without long-term current use of insulin E11.9 Active 588031889 Problem Primary insomnia F51.01 Active 6357731 Problem Acute non intractable tension-type headache G44.209 Active 530773160 Problem Generalized anxiety disorder F41.1 Active 62587090 Problem Bipolar disorder in remission F31.70 Active 83003735 Problem Family history of diabetes insipidus Z83.49 Active 488320635 Problem Abnormal CBC R79.89 Active 796826945 Problem Bipolar disorder, current episode mixed, mild F31.61 Active 644807745 Problem History of diabetes mellitus Z86.39 Active 339181655 Problem Overweight (BMI 25.0-29.9) E66.3 Active 229351498 Problem Sore throat J02.9 Active 661160762 ALLERGIES No Information ENCOUNTERS Encounter Location Date Diagnosis [facility] [address] [facility] [id number] [address] Jan, [facility] [address], [place] [address] December, Dysuria R30.0 [facility] [id number] [address] December, [place] [id number] [place] [address] 40818- 5017 Nov, Bipolar disorder, current episode mixed, mild F31.61 and Personality disorder F60.9 [place] [id number] [place] [address] 01768- 6875 Nov, Elevated LDL cholesterol level E78.00 and Type 2 diabetes mellitus without complication, without long-term current use of insulin E11.9 [place] [id number] [place] [address] 18201- 9097 Nov, Elevated LDL cholesterol level E78.00 and Type 2 diabetes mellitus without complication, without long-term current use of insulin E11.9 [place] [id number] [place] [address] 20190- 2724 Nov, Other chronic pain G89.29 and Pain in left leg M79.605 [place] [address] [address]- [address] Nov, Acute pain of left knee M25.562 ; Syncope, unspecified syncope type R55 and Hypoglycemia E16.2 [place] [id number] [place] [address] 33875- 4759 Oct, Syncope, unspecified syncope type R55 [place] [id number] [place] [address] 03839- 6222 Oct, Bipolar disorder, current episode mixed, mild F31.61 and Personality disorder F60.9 [place] [address] [place] [address] 24648- 8827 Oct, Lump of right breast N63.10 [place] [id number] [place] [address] 95357- 7773 Oct, Generalized anxiety disorder F41.1 [place] [id number] [place] [address] 20319- 2131 Oct, Generalized anxiety disorder F41.1 ; Bipolar disorder in remission F31.70 ; Bipolar disorder, current episode mixed, mild F31.61 and Primary insomnia F51.01 [place] [id number] [place] [address] 86917- 1178 20 Oct, 2017 Primary insomnia F51.01 and Lump of right breast N63.10 [place] [id number] [place] [address] 29079- 6941 16 Oct, 2017 Enteritis K52.9 [facility] [address] [address] 14 Oct, 2017 Allergic conjunctivitis of both eyes H10.13 and Acute non intractable tension-type headache G44.209 [place] [address] 42186- 5143 14 Oct, 2017 [place] [address] 05407- 4898 Oct, Bipolar disorder, current episode mixed, mild F31.61 [place] [address] [address]- 1968 Sep, Right flank pain R10.9 and Thoracic spine pain M54.6 [place] [address] 68622- 9387 16 Sep, 2017 Generalized anxiety disorder F41.1 and Bipolar disorder, current episode mixed, mild F31.61 [place] [id number] [place] [address] 48165- 7183 Sep, [place] [address] 57866- 8496 14 Sep, 2017 Generalized anxiety disorder F41.1 ; Bipolar disorder in remission F31.70 and Personality disorder F60.9 [place] [address] 73747- 7554 12 Sep, 2017 Spasm of thoracic back muscle M62.830 ; Type 2 diabetes mellitus without complication, without long-term current use of insulin E11.9 and Generalized anxiety disorder F41.1 [place] [id number] [place] [address] 34763- 9210 Sep, Bipolar disorder, current episode mixed, mild F31.61 and Personality disorder F60.9 [place] [id number] [place] [address] 38695- 5566 Aug, [place] [id number] [place] [address] 73837- 6696 Aug, Bipolar disorder, current episode mixed, mild F31.61 and Personality disorder F60.9 [place] [id number] [place] [address] 19361- 6381 Aug, Type 2 diabetes mellitus without complication, without long- term current use of insulin E11.9 ; Generalized anxiety disorder F41.1 ; Bipolar disorder in remission F31.70 and Overweight (BMI 25.0-29.9) E66.[address] [address]- 4[address] Aug, Type 2 diabetes mellitus without complication, without long- term current use of insulin E11.9 ; Elevated LDL cholesterol level E78.00 and Bipolar disorder, current episode mixed, mild F31.61 [facility] [id number] [place] [address] 95344 -8570 Jul, Vaginal discharge N89.8 ; Skin irritation R23.8 and Dysuria R30.0 [facility] [place] [id number] [place] [address] 89337 -9483 Jul, Acute seasonal allergic rhinitis, unspecified trigger J30.2 and Chest pain, unspecified type R07.9 [place] [id number] [place] [address] 66864- 0806 Jun, Bipolar disorder, current episode mixed, mild F31.61 [place] [id number] [place] [address] 49659- 8319 Jun, [place] [id number] [place] [address] 32693- 7029 Jun, Bipolar disorder, current episode mixed, mild F31.61 and Personality disorder F60.9 [place] [address]- 9598 Jun, [place] [address] [place] [address]415- 3496 Jun, Type 2 diabetes mellitus without complication, without long- term current use of insulin E11.9 and Dysuria R30.0 [place] [address]- 8829 May, Bipolar disorder, current episode mixed, mild F31.61 ; Personality disorder F60.9 and Homeless Z59.0 [place] [address]- 8839 May, Type 2 diabetes mellitus without complication, without long- term current use of insulin E11.9 [place] [address]- 3172 May, History of hypertension Z86.[address] [address]- [address] May, [place] [address]- [address] May, Type 2 diabetes mellitus without complication, without long- term current use of insulin E11.9 ; Elevated LDL cholesterol level E78.00 ; Low serum HDL R74.8 and Encounter for immunization Z23 [address] [address]- 67[address] Apr, Encounter to establish care Z76.89 ; Abnormal CBC R79.89 ; History of hypertension Z86.79 ; Overweight (BMI 25.0-29.9) E66.3 ; Family history of diabetes insipidus Z83.49 ; Sore throat J02.9 and Tonsillitis with exudate J03.[address] [address]- 1235 Apr, Bipolar disorder, current episode mixed, mild F31.61 [facility] [address] [address] Mar, Bipolar disorder, current episode mixed, mild F31.61 [facility] [address] [place] [address]- 6166 Mar, [facility] [address] [address]- 3736 Mar, [facility] [id number] [place] [address] 90587- 9486 Mar, Bipolar disorder in remission F31.70 [facility] [id number] [place] [address] 56668- 6656 Jan, [facility] [address] [place] [address] 97339- 7588 Jan, [facility] [id number] [place] [address] 72465- 2524 Oct, Generalized anxiety disorder F41.1 and Bipolar disorder in remission F31.70 [facility] [address], [place] [address]- 4226 Oct, [facility] [address] [id number], [place] [address]- 7376 Oct, [facility] [address], [place] [address] 1986 Oct, [facility] [address], [place] [address] 2548 Oct, [facility] [address], [place] [address]- 4606 Jul, [facility] [id number] [place] [address] 10550- 6546 Jun, [facility] [address], [place] [address]- 5986 May, 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 and Generalized anxiety disorder F41.1 [facility] [address], [place] [address]- 7246 Jan, [facility] [id number] [place] [address] 33351 2546 Jan, [facility] [id number] [place] [address] 32571- 0571 Jan, 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 and Generalized anxiety disorder F41.1 [facility] [id number] [place] [address] 08203- 8996 Sep, [facility] [id number] [place] [address] 47472- 8116 Sep, [facility] [id number] [place] [address] 02724- 8296 Jul, 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 and Generalized anxiety disorder F41.1 [facility] [id number] [place] [address] 23113- 0530 Jul, Otalgia of right ear H92.01 [facility] [id number] [place] [address] 64758- 8556 Jun, [facility] [id number] [place] [address] 38125- 0319 Mar, [facility] [id number] [place] [address] 28096- 4606 Jan, [facility] [id number] [place] [address] 31203 2546 Jan, [facility] [id number] [place] [address] 02183- 7246 Jan, Bipolar 1 disorder, mixed, moderate 296.62 and SHERRY ( generalized anxiety disorder) 300.02 [facility] [address] [place] [address] 37770- 5756 Jan, [facility] [id number] [place] [address]- 4336 14 Nov, 2014 [facility] [place] [facility] [address] [id number] [place] [address]- 2723 Nov, [facility] [place] [facility] [address] [id number] [place] [address] Oct, [facility] [place] [facility] [address] [id number] [place] [address]- 5815 Oct, [facility] [place] [facility] [address] [id number] [place] [address]- 2513 Mar, [facility] [place] [facility] [address] [id number] [place] [address]- 7236 Mar, [facility] [place] [facility] [address] [id number] [place] [address]- 3348 Jan, [facility] [place] [facility] [address] [id number] [place] [address]- 1465 Jan, [facility] [place] [facility] [address] [id number] [place] [address]- 5844 December, [facility] [place] [facility] [address] [id number] [place] [address]- 4449 December, [facility] [place] [facility] [address] [id number] [place] [address]- 4415 December, [facility] [place] [facility] [address] [id number] [place] [address]- 5752 December, [facility] [place] [facility] [address] [id number] [place] [address]- 8880 December, [facility] [place] [facility] [address] [id number] [place] [address]60 December, [facility] [place] [facility] [address] [id number] [place] [address]- 4301 December, [facility] [place] [facility] [address] [id number] [place] December, [facility] [place] [facility] [address] [id number] [place] [address]- 9838 Nov, [facility] [place] [facility] [address] [id number] [place] [address]- 0315 Nov, [facility] [place] [facility] [address] [id number] [place] [address]- 9371 Oct, [facility] [place] [facility] [address] [id number] [place] [address]- 5750 Oct, [facility] [place] [facility] [address] [id number] [place] [address]- 4304 Oct, [facility] [place] [facility] [address] [id number] [place] [address]- 9812 Oct, [facility] [place] [facility] [address] [id number] [place] [address]- 0866 Oct, [facility] [place] [facility] [address] [id number] [place] [address]- 9558 Sep, [facility] [place] [facility] [address] [id number] [place] [address]- 1519 Sep, [facility] [place] [facility] [address] [id number] [place] [address]- 4411 Sep, [facility] [place] [facility] [address] [id number] [place] [address]- 5804 Sep, [facility] [place] [facility] [address] [id number] [place] [address]- 3402 Aug, [facility] [place] [facility] [address] [id number] [place] [address]- 6337 Aug, [facility] [place] [facility] [address] [id number] [place] [address]- 6013 Aug, [facility] [place] [facility] [address] [id number] [place] [address]- 2241 Aug, [facility] [place] [facility] [address] [id number] [address]- 1724 13 Aug, 2013 [facility] [place] [facility] [address] [id number] [place] [address]- 6272 16 Jul, 2013 [facility] [place] [facility] [address] [id number], [place] [address]- 5502 16 Jul, 2013 [facility] [place] [facility] [address] [facility] [id number] [place] [address]- 9083 Jul, [facility] [place] [facility] [address] [id number], [place] [address]- 7460 Jul, [facility] [place] [facility] [address] [facility] [id number] [place] [address]- 5750 Jun, [facility] [place] [facility] [address] [facility] [id number], [place] [address]- 4402 Jun, [facility] [place] [facility] [address] [facility] [id number], [place] [address]- 9312 May, [facility] [place] [facility] [address] [id number], [place] [address]- 9481 May, [facility] [place] [facility] [address] [facility] [id number], [place] [address]- 9684 May, [facility] [place] [facility] [address] [facility] [id number], [place] [address]- 7400 18 May, 2013 [facility] [place] [facility] [address] [facility] [id number], [place] [address]- 0009 15 May, 2013 [facility] [place] [facility] [address] [facility] [id number], [place] [address]- 6320 15 May, 2013 [facility] [place] [facility] [address] [facility] [id number], [place] [address]- 5588 09 May, 2013 [facility] [place] [facility] [address] [facility] [id number], [place] [address]- 5445 07 May, 2013 [facility] [place] [facility] [address] [facility] [id number], [place] [address]- 2470 02 May, 2013 [facility] [place] [facility] [address] [id number] [place] [address]- 8953 Apr, [facility] [place] [facility] [address] [id number] [place] [address]- 8793 Apr, [facility] [place] [facility] [address] [id number] [place] [address]- 4176 Mar, [facility] [place] [facility] [address] [id number] [place] [address]- 1685 Mar, [facility] [place] [facility] [address] [id number] [place] [address]- 8133 Mar, [facility] [place] [facility] [address] [id number] [place] [address]- 7897 Mar, [facility] [place] [facility] [address] [id number] [place] [address]- 2081 Mar, [facility] [place] [facility] [address] [id number] [place] [address]- 6762 Mar, [facility] [place] [facility] [address] [id number] [place] [address]- 5161 Mar, [facility] [place] [facility] [address] [id number] [place] [address]- 0244 Mar, [facility] [place] [facility] [address] [id number] [place] [address]- 2221 Mar, [facility] [place] [facility] [address] [id number] [place] [address]- 6705 Mar, [facility] [place] [facility] [address] [id number] [place] [address]- 6433 Mar, [facility] [place] [facility] [address] [id number] [place] [address]- 9989 Jan, [facility] [place] [facility] [address] [id number] [place] [address]- 4142 Jan, [facility] [place] [facility] [address] [id number] [place] [address]- 7238 Jan, [facility] [address] [id number] [place] [address]- 9243 December, [facility] [address] [id number] [place] [address]- 1996 December, [facility] [address] [id number] [place] [address]- 7675 Nov, [facility] [address] [id number] [place] [address]- 3896 Nov, [facility] [address] [id number] [place] [address]- 9963 Oct, [facility] [address] [id number] [place] [address]- 5929 26 Oct, 2012 [facility] [address] [id number] [place] [address]- 3411 21 Oct, 2012 [facility] [address] [id number] [place] [address]- 4356 20 Oct, 2012 [facility] [address] [id number] [place] [address]- 3835 19 Oct, 2012 [facility] [address] [id number] [place] [address]- 3528 19 Oct, 2012 [facility] [address] [id number] [place] [address]- 1231 17 Oct, 2012 [facility] [place] [facility] [address] [id number], [place] [address]- 6326 16 Oct, 2012 [facility] [place] [facility] [address] [id number] [place] [address]- 2016 14 Oct, 2012 [facility] [place] [facility] [address] [id number] [place] [address]- 2351 13 Oct, 2012 [facility] [place] [facility] [address] [id number] [place] [address]- 7847 05 Oct, 2012 [facility] [place] [facility] [address] [id number] [place] [address]- 5005 14 Sep, 2012 [facility] [address] [id number] [place] [address]- 2413 08 Sep, 2012 [facility] [address] [id number] [place] [address]- 0404 21 Aug, 2012 [facility] [address] [id number] [place] [address]- 8913 16 Aug, 2012 [facility] [address] [id number] [place] [address]- 7836 Aug, [facility] [address] [id number] [place] [address]- 0630 Aug, [facility] [address] [id number] [place] [address]- 6858 Aug, [facility] [address] [id number] [place] [address]- 6092 Jul, [facility] [address] [id number] [place] [address]- 8568 21 Jul, 2012 [facility] [address] [id number] [place] [address]- 6146 19 Jul, 2012 [facility] [address] [id number] [place] [address]- 4990 19 Jul, 2012 [facility] [address] [id number] [place] [address]- 9254 18 Jul, 2012 [facility] [address] [id number] [place] [address]- 4095 17 Jul, 2012 [facility] [address] [id number] [place] [address]- 2469 14 Jul, 2012 [facility] [address] [id number] [place] [address]- 9130 14 Jul, 2012 [facility] [address] [id number] [place] [address]- 2564 Jul, [facility] [place] [facility] [address] [id number] [place] 7351 Jul, [facility] [place] [facility] [address] [id number] [place] [address]- 0033 Jul, [facility] [place] [facility] [address] [id number] [place] [address]- 8195 Jul, [facility] [place] [facility] [address] [id number] [place] [address]- 3981 Jul, [facility] [place] [facility] [address] [id number] [place] 7664 Jul, [facility] [place] [facility] [address] [id number] [place] [address]- 0935 Jul, [facility] [place] [facility] [address] [id number] [place] [address] Jul, [facility] [place] [facility] [address] [id number] [place] [address] Jun, [facility] [place] [facility] [address] [id number] [place] [address] Jun, [facility] [place] [facility] [address] [id number] [place] [address] Jun, [facility] [place] [facility] [address] [id number] [place] [address] Jun, [facility] [place] [facility] [address] [id number], [place] [address] Jun, [facility] [place] [facility] [address] [id number] [place] [address] Jun, [facility] [place] [facility] [address] [id number] [place] [address] Jun, [facility] [place] [facility] [address] [id number], [place] [address] Jun, [facility] [place] [facility] [address] [id number], [place] [address] Jun, [facility] [place] [facility] [address] [id number] [place] [address] May, [facility] [place] [facility] [address] [id number] [place] [address] Mar, [facility] [place] [facility] [address] [id number] [place] [address] Mar, [facility] [place] [facility] [address] [id number] [place] [address] Mar, [facility] [place] [facility] [address] [id number] [place] [address] Mar, [facility] [place] [facility] [address] [id number] [place] [address] Jan, [facility] [place] [facility] [address] [id number] [place] [address] Jan, [facility] [place] [facility] [address] [id number] [place] [address] Jan, [facility] [place] [facility] [address] [id number] [place] [address] Jan, [facility] [place] [facility] [address] [id number] [place] [address] Jan, [facility] [place] [facility] [address] [id number] [place] [address] Jan, [facility] [place] [facility] [address] [id number] [place] [address] December, [facility] [place] [facility] [address] [id number] [place] [address] December, [facility] [place] [facility] [address] [id number] [place] [address] Nov, [facility] [place] [facility] [address] [id number] [place] [address] Nov, [facility] [place] [facility] [address] [id number] [place] [address] 27 Oct, 2011 [facility] [place] [facility] [address] [id number] [place] [address] Oct, [facility] [place] [facility] [address] [id number] [place] [address] 08 Oct, 2011 [facility] [place] [facility] [address] [id number] [place] [address] Oct, [facility] [place] [facility] [address] [id number] [place] [address] Aug, [facility] [place] [facility] [address] [id number] [place] [address] Aug, [facility] [place] [facility] [address] [id number] [place] [address] Jun, [facility] [place] [facility] [address] [id number] [place] [address] Jun, [facility] [place] [facility] [address] [id number] [place] [address] Jun, [facility] [place] [facility] [address] [id number] [place] [address] Jun, [facility] [place] [facility] [address] [id number] [place] [address] Jun, [facility] [place] [facility] [address] [id number] [place] [address] May, [facility] [place] [facility] [address] [address] [id number] [place] [address] May, [facility] [place] [facility] [address] [id number] [place] [address] May, [facility] [place] [facility] [address] [id number] [place] [address] May, [facility] [place] [facility] [address] [id number] [place] [address] May, [facility] [address] [facility] [id number][place] [address] May, [facility] [address] [id number][place] [address] 14 May, 2011 [facility] [address] [facility] [id number], [place] [address] 17 Mar, 2011 [facility] [address] [facility] [id number][place] [address] May, [facility] [address] [facility] [id number][place] [address] Jan, [facility] [address] [facility] [id number][place] [address] Jul, [facility] [address] [facility] [id number][place] [address] Jun, [facility] [address] [facility] [id number][place] [address] 16 Jun, 2009 [facility] [address] [facility] [id number][place] [address] Jun, [facility] [address] [facility] [id number][place] [address] Jun, [facility] [address] [facility] [id number][place] [address] Jun, [facility] [address] [facility] [id number][place] [address] May, [facility] [address] [facility] [id number][place] [address] May, [facility] [address] [facility] [id number][place] [address] 15 May, 2009 [facility] [address] [facility] [id number], [place] [address] Jul, IMMUNIZATIONS No Known Immunizations SOCIAL HISTORY Never Assessed REASON FOR VISIT Clarification PLAN OF CARE VITAL SIGNS MEDICATIONS Medication Instructions Dosage Frequency Start Date End Date Duration Status Abilify 5 mg Orally Once a day at bedtime 1 tablet Active RESULTS No Results PROCEDURES No Known procedures INSTRUCTIONS MEDICATIONS ADMINISTERED No Known Medications MEDICAL (GENERAL) HISTORY Type Description Date Medical History hypertension Medical History depression (hx of suicidal plan in 2012) Medical History insomnia Medical History bipolar disorder Surgical History Appendix Surgical History Tubal Ligation Hospitalization History Child /surgery Hospitalization History psych inpatient treatment, 2011
--- OUTSIDE RECORDS SUMMARY | 2018-01-27 14:33 | XMS REPORT ---
Author Author ALEXANDRU ARACELIS Organization [facility] Address [address] [place] [address] Care Team Providers Care Director Of Radiology Name Role Phone JASWANTMARCELLUS ARACELIS Unavailable PROBLEMS Type Condition ICD9-CM Code WTG92-IQ Code Onset Dates Condition Status SNOMED Code Problem History of hypertension Z86.79 Active 768801442 Problem Elevated LDL cholesterol level E78.00 Active 360548452 Problem Personality disorder F60.9 Active 53124583 Problem Other chronic pain G89.29 Active 90174145 Problem Hypoglycemia E16.2 Active 072908053 Problem Acute seasonal allergic rhinitis, unspecified trigger J30.2 Active 354795530 Problem Type 2 diabetes mellitus without complication, without long-term current use of insulin E11.9 Active 125809792 Problem Primary insomnia F51.01 Active 5144314 Problem Acute non intractable tension-type headache G44.209 Active 608811372 Problem Generalized anxiety disorder F41.1 Active 05465982 Problem Bipolar disorder in remission F31.70 Active 82970798 Problem Family history of diabetes insipidus Z83.49 Active 648554903 Problem Abnormal CBC R79.89 Active 364853620 Problem Bipolar disorder, current episode mixed, mild F31.61 Active 255285354 Problem History of diabetes mellitus Z86.39 Active 710811892 Problem Overweight (BMI 25.0-29.9) E66.3 Active 440708471 Problem Sore throat J02.9 Active 017642605 ALLERGIES No Information ENCOUNTERS Encounter Location Date Diagnosis [facility] [address] [facility] [id number] [address] Jan, [facility] [address] [id number] [address] Jan, [facility] [address] [facility] [id number], [place] [address] 15 Jan, 2018 Cyst of ovary, unspecified laterality N83.209 [place] [id number] [place] [address] 57685- 9296 December, Cyst of ovary, unspecified laterality N83.209 [place] [id number] [place] [address] 28280- 9229 December, [place] [address] [address]- 6[address] December, Dysuria R30.0 [place] [address] 84254- 4908 December, [place] [address] 01317- 4619 Nov, Bipolar disorder, current episode mixed, mild F31.61 and Personality disorder F60.9 [place] [address] [address]61- 2083 Nov, Elevated LDL cholesterol level E78.00 and Type 2 diabetes mellitus without complication, without long-term current use of insulin E11.9 [place] [address] 57259- 8073 Nov, Elevated LDL cholesterol level E78.00 and Type 2 diabetes mellitus without complication, without long-term current use of insulin E11.9 [place] [id number] [place] [address] 30819- 8117 Nov, Other chronic pain G89.29 and Pain in left leg M79.605 [place] [address] 29741- 6999 Nov, Acute pain of left knee M25.562 ; Syncope, unspecified syncope type R55 and Hypoglycemia E16.2 [place] [id number] [place] [address] 54238- 7207 Oct, Syncope, unspecified syncope type R55 [place] [address] 89618- 1223 Oct, Bipolar disorder, current episode mixed, mild F31.61 and Personality disorder F60.9 [facility] [id number] [place] [address] 90920- 8738 Oct, Lump of right breast N63.10 [facility] [id number] [place] [address] 59547- 3200 Oct, Generalized anxiety disorder F41.1 [place] [address] 65605- 0121 Oct, Generalized anxiety disorder F41.1 ; Bipolar disorder in remission F31.70 ; Bipolar disorder, current episode mixed, mild F31.61 and Primary insomnia F51.01 [place] [address] 86437- 2941 Oct, Primary insomnia F51.01 and Lump of right breast N63.10 [place] [address] 35082- 9655 16 Oct, 2017 Enteritis K52.9 [facility] [address] [address] 14 Oct, 2017 Allergic conjunctivitis of both eyes H10.13 and Acute non intractable tension-type headache G44.209 [facility] [id number] [place] [address] 88487- 4357 14 Oct, 2017 [facility] [address] 78169- 7022 Oct, Bipolar disorder, current episode mixed, mild F31.61 [place] [id number] [place] [address] 59622- 5830 Sep, Right flank pain R10.9 and Thoracic spine pain M54.6 [facility] [id number] [place] [address] 85525- 9005 16 Sep, 2017 Generalized anxiety disorder F41.1 and Bipolar disorder, current episode mixed, mild F31.61 [facility] [address] [place] [address] 94464- 9341 14 Sep, 2017 [place] [address] [id number]- 087 14 Sep, 2017 Generalized anxiety disorder F41.1 ; Bipolar disorder in remission F31.70 and Personality disorder F60.9 [place] [address] 26074- 0485 12 Sep, 2017 Spasm of thoracic back muscle M62.830 ; Type 2 diabetes mellitus without complication, without long-term current use of insulin E11.9 and Generalized anxiety disorder F41.[address] 98997- 624 12 Sep, 2017 Bipolar disorder, current episode mixed, mild F31.61 and Personality disorder F60.9 [place] [address] 57929- 3572 Aug, [place] [address] 58522- 6419 Aug, Bipolar disorder, current episode mixed, mild F31.61 and Personality disorder F60.[address] 24623- 8120 05 Aug, 2017 Type 2 diabetes mellitus without complication, without long- term current use of insulin E11.9 ; Generalized anxiety disorder F41.1 ; Bipolar disorder in remission F31.70 and Overweight (BMI 25.0-29.9) E66.3 [place] [address] 12081- 9777 Aug, Type 2 diabetes mellitus without complication, without long- term current use of insulin E11.9 ; Elevated LDL cholesterol level E78.00 and Bipolar disorder, current episode mixed, mild F31.61 [facility] [address] [place] [address] 11704 -6775 Jul, Vaginal discharge N89.8 ; Skin irritation R23.8 and Dysuria R30.[address] [facility] [address] [place] [address] [address] Jul, Acute seasonal allergic rhinitis, unspecified trigger J30.2 and Chest pain, unspecified type R07.9 [place] [address] 45228- 9974 Jun, Bipolar disorder, current episode mixed, mild F31.61 [place] [address] 65611- 0638 Jun, [place] [address] [id number]- 6520 Jun, Bipolar disorder, current episode mixed, mild F31.61 and Personality disorder F60.9 [place] [address] 16640- 2882 Jun, [place] [address] 51515- 3932 Jun, Type 2 diabetes mellitus without complication, without long- term current use of insulin E11.9 and Dysuria R30.0 [place] [address] 20842- 9893 May, Bipolar disorder, current episode mixed, mild F31.61 ; Personality disorder F60.9 and Homeless Z59.0 [place] [id number] [place] [address] 20913- 1487 May, Type 2 diabetes mellitus without complication, without long- term current use of insulin E11.9 [place] [id number] [place] [address] 86715- 7840 May, History of hypertension Z86.79 [place] [address] 29200- 5958 May, [place] [address] 00030- 7262 May, Type 2 diabetes mellitus without complication, without long- term current use of insulin E11.9 ; Elevated LDL cholesterol level E78.00 ; Low serum HDL R74.8 and Encounter for immunization Z23 [place] [id number] [place] [address] 45564- 6590 26 Apr, 2017 Encounter to establish care Z76.89 ; Abnormal CBC R79.89 ; History of hypertension Z86.79 ; Overweight (BMI 25.0-29.9) E66.3 ; Family history of diabetes insipidus Z83.49 ; Sore throat J02.9 and Tonsillitis with exudate J03.90 [place] [address] 79619- 6263 Apr, Bipolar disorder, current episode mixed, mild F31.61 [place] [address] 42224- 1253 Mar, [place] [address] 36840- 9487 Mar, Bipolar disorder, current episode mixed, mild F31.61 [place] [address] 07761- 8467 Mar, [place] [address] 30113- 9652 Mar, Bipolar disorder in remission F31.70 [place] [id number] [place] [address] 55741- 4967 Jan, [place] [id number] [place] [address] 80848- 3151 Jan, [place] [id number] [place] [address] 45493- 9658 Oct, Generalized anxiety disorder F41.1 and Bipolar disorder in remission F31.70 [place] [address] 03768- 7266 Oct, [place] [address] 20704- 8631 Oct, [place] [address] 83548- 8886 Oct, [facility] [address] [address] 9037 Oct, [facility] [id number] [place] [address] 20328- 2066 Jul, [facility] [id number] [place] [address] 89713 2546 Jun, [facility] [id number] [place] [address] 81417- 2842 May, 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 and Generalized anxiety disorder F41.1 [facility] [id number] [place] [address] 53635- 0065 Jan, [facility] [id number] [place] [address] 83534- 5093 Jan, [facility] [id number] [place] [address] 28747- 1695 Jan, 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 and Generalized anxiety disorder F41.1 [facility] [address] [place] [address] 33653- 2654 Sep, [facility] [id number] [place] [address] 15771- 1376 Sep, [facility] [id number] [place] [address] 263703- 0694 Jul, 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 and Generalized anxiety disorder F41.1 [facility] [address] [address]- 4086 Jul, Otalgia of right ear H92.01 [facility] [address] [address]- 0986 Jun, [facility] [address] [address]- 4096 Mar, [facility] [address] [id number], [place] [address]- 5078 Jan, [facility] [address] [address]- 4944 Jan, [facility] [id number] [place] [address]- 6443 Jan, Bipolar 1 disorder, mixed, moderate 296.62 and SHERRY ( generalized anxiety disorder) 300.02 [facility] [address] [address]- 4643 Jan, [facility] [id number] [place] [address]- 5534 Nov, [facility] [address], [place] [address]- 5268 Nov, [facility] [address], [place] [address]- 6984 Oct, [facility] [address] [address]- 4105 Oct, [facility] [address], [place] [address]- 6134 Mar, [facility] [address], [place] [address]- 1496 Mar, [facility] [address] [id number], [place] [address]- 2824 Jan, [facility] [id number], [place] [address]- 7220 Jan, [facility] [id number] [place] [address]- 4290 December, [facility] [id number] 9909 December, [facility] [id number] [address]- 1997 December, [facility] [id number] [place] [address]- 0704 December, [facility] [address] [id number] [place] [address]- 9670 December, [facility] [place] [facility] [address] [id number] [place] [address]- 2385 December, [facility] [place] [facility] [address] [id number] [place] [address]- 9980 December, [facility] [place] [facility] [address] [id number] [place] [address]- 8718 December, [facility] [place] [facility] [address] [id number] [place] [address]- 7672 Nov, [facility] [place] [facility] [address] [id number] [place] [address]- 8820 Nov, [facility] [place] [facility] [address] [id number] [place] [address]- 0066 Oct, [facility] [place] [facility] [address] [id number] [place] [address]- 7945 Oct, [facility] [place] [facility] [address] [id number] [place] [address]- 8770 Oct, [facility] [place] [facility] [address] [id number] [place] [address]- 1922 Oct, [facility] [place] [facility] [address] [id number] [place] [address]- 5105 Oct, [facility] [place] [facility] [address] [id number] [place] [address]- 7281 Sep, [facility] [place] [facility] [address] [id number] [place] [address] Sep, [facility] [place] [facility] [address] [id number] [place] [address]- 4248 Sep, [facility] [place] [facility] [address] [id number] [place] [address]- 6674 Sep, [facility] [place] [facility] [address] [id number] [place] [address]- 1134 Aug, [facility] [place] [facility] [address] [id number] [place] [address]- 3809 Aug, [facility] [place] [facility] [address] [id number] [place] [address]- 0878 Aug, [facility] [place] [facility] [address] [id number] [place] [address]- 9443 Aug, [facility] [place] [facility] [address] [id number] [place] [address]- 3707 Aug, [facility] [place] [facility] [address] [id number] [place] [address]- 6222 Jul, [facility] [place] [facility] [address] [id number] [place] [address]- 6705 Jul, [facility] [place] [facility] [address] [id number] [address]- 9071 Jul, [facility] [place] [facility] [address] [id number] [place] [address]- 3126 Jul, [facility] [place] [facility] [address] [id number], [place] [address]- 8334 Jun, [facility] [place] [facility] [address] [id number], [place] [address]- 4174 Jun, [facility] [place] [facility] [address] [id number], [place] [address]- 0779 May, [facility] [place] [facility] [address] [id number] [place] [address]- 4789 May, [facility] [place] [facility] [address] [id number], [place] [address]- 8182 May, [facility] [place] [facility] [address] [id number] [place] [address]- 1202 May, [facility] [place] [facility] [address] [id number] [place] [address]- 6124 15 May, 2013 [facility] [place] [facility] [address] [id number] [place] [address]- 4637 15 May, 2013 [facility] [place] [facility] [address] [id number] [place] [address]- 7115 May, [facility] [place] [facility] [address] [id number] [place] [address]- 0239 May, [facility] [place] [facility] [address] [id number] [place] [address]- 6316 May, [facility] [place] [facility] [address] [id number] [place] [address]- 6735 Apr, [facility] [place] [facility] [address] [id number] [place] [address]- 3530 Apr, [facility] [place] [facility] [address] [id number] [place] [address]- 2727 Mar, [facility] [place] [facility] [address] [id number] [place] [address]- 0466 Mar, [facility] [place] [facility] [address] [id number] [place] [address]- 0280 Mar, [facility] [place] [facility] [address] [id number] [place] [address]- 0504 Mar, [facility] [place] [facility] [address] [id number] [place] [address]- 2175 Mar, [facility] [place] [facility] [address] [id number] [place] [address]- 3995 Mar, [facility] [place] [facility] [address] [id number] [place] [address]- 6816 Mar, [facility] [place] [facility] [address] [id number] [place] [address]- 5130 Mar, [facility] [place] [facility] [address] [id number] [place] [address]- 7790 Mar, [facility] [place] [facility] [address] [id number] [place] [address]- 3159 Mar, [facility] [address] [id number] [place] [address]- 6222 Mar, [facility] [address] [id number] [place] [address]- 9416 Jan, [facility] [address] [id number] [place] [address]- 3622 Jan, [facility] [address] [id number] [place] [address]- 3002 Jan, [facility] [address] [id number] [place] [address]- 9814 December, [facility] [address] [id number] [place] [address]- 0983 December, [facility] [address] [id number] [place] [address]- 9241 Nov, [facility] [address] [id number] [place] [address]- 6886 Nov, [facility] [address] [id number] [place] [address]- 1637 Oct, [facility] [address] [id number] [place] [address]- 8638 Oct, [facility] [address] [id number] [place] [address]- 3458 Oct, [facility] [place] [facility] [address] [id number] [place] [address]- 5368 Oct, [facility] [place] [facility] [address] [id number] [place] 5748 Oct, [facility] [place] [facility] [address] [id number] [place] [address]- 9214 Oct, [facility] [place] [facility] [address] [id number] [place] [address]- 4066 17 Oct, 2012 [facility] [address] [id number] [place] [address]- 8180 16 Oct, 2012 [facility] [address] [id number] [place] [address]- 0734 14 Oct, 2012 [facility] [address] [id number] [place] [address]- 6704 13 Oct, 2012 [facility] [address] [id number] [place] [address]- 6741 05 Oct, 2012 [facility] [address] [id number] [place] [address]- 3399 14 Sep, 2012 [facility] [address] [id number] [place] [address]- 9529 08 Sep, 2012 [facility] [address] [id number] [place] [address]- 8453 Aug, [facility] [address] [id number] [place] [address]- 5347 Aug, [facility] [address] [id number] [place] [address]- 1439 Aug, [facility] [address] [id number] [place] [address]- 7079 Aug, [facility] [address] [id number] [place] [address]- 0473 Aug, [facility] [place] [facility] [address] [id number] [place] [address]- 6970 Jul, [facility] [place] [facility] [address] [id number] [place] [address]- 9012 Jul, [facility] [place] [facility] [address] [id number] [place] [address]- 9441 Jul, [facility] [place] [facility] [address] [id number] [place] [address]- 0747 Jul, [facility] [place] [facility] [address] [id number] [place] [address]- 0176 18 Jul, 2012 [facility] [address] [id number] [place] [address]- 7706 17 Jul, 2012 [facility] [address] [id number] [place] [address]- 1536 14 Jul, 2012 [facility] [address] [id number] [place] [address]- 3256 14 Jul, 2012 [facility] [address] [id number] [place] [address]- 8064 06 Jul, 2012 [facility] [address] [id number] [place] [address]- 4309 06 Jul, 2012 [facility] [address] [id number] [place] [address]- 8237 05 Jul, 2012 [facility] [address] [id number] [place] [address]- 1554 05 Jul, 2012 [facility] [address] [id number] [place] [address]- 4926 Jul, [facility] [address] [id number] [place] [address]- 2382 Jul, [facility] [address] [id number] [place] [address]- 4833 Jul, [facility] [address] [id number] [place] [address] Jul, [facility] [address] [id number] [place] [address] Jun, [facility] [place] [facility] [address] [id number] [place] [address] Jun, [facility] [place] [facility] [address] [id number] [place] [address] Jun, [facility] [address] [id number] [id number] [address] Jun, [facility] [place] [facility] [address] [id number] [place] [address] Jun, [facility] [place] [facility] [address] [id number] [place] [address] Jun, [facility] [place] [facility] [address] [id number] [place] [address] Jun, [facility] [place] [facility] [address] [id number] [place] [address] Jun, [facility] [place] [facility] [address] [id number] [place] [address] Jun, [facility] [place] [facility] [address] [id number] [place] [address] May, [facility] [place] [facility] [address] [id number] [place] [address] Mar, [facility] [place] [facility] [address] [id number] [place] [address] Mar, [facility] [place] [facility] [address] [id number] [place] [address] Mar, [facility] [place] [facility] [address] [id number], [place] [address] Mar, [facility] [place] [facility] [address] [id number], [place] [address] Jan, [facility] [place] [facility] [address] [id number], [place] [address] Jan, [facility] [place] [facility] [address] [id number] [place] [address] Jan, [facility] [place] [facility] [address] [id number], [place] [address] Jan, [facility] [place] [facility] [address] [facility] [id number] [address] Jan, [facility] [place] [facility] [address] [id number], [place] [address] Jan, [facility] [address] [id number] [place] [address] December, [facility] [place] [facility] [address] [id number] [place] [address] December, [facility] [place] [facility] [address] [id number] [place] [address] Nov, [facility] [place] [facility] [address] [id number] [place] [address] Nov, [facility] [place] [facility] [address] [id number] [place] [address] Oct, [facility] [place] [facility] [address] [id number] [place] [address] Oct, [facility] [address] [id number] [place] [address] Oct, [facility] [place] [facility] [address] [id number] [place] [address] Oct, [facility] [place] [facility] [address] [id number] [place] [address] Aug, [facility] [place] [facility] [address] [facility] [id number] [place] [address] Aug, [facility] [place] [facility] [address] [id number] [place] [address] Jun, [facility] [place] [facility] [address] [id number], [place] [address] Jun, [facility] [place] [facility] [address] [id number] [place] [address] Jun, [facility] [place] [facility] [address] [facility] [id number] [place] [address] Jun, [facility] [place] [facility] [address] [id number] [place] [address] Jun, [facility] [place] [facility] [address] [id number] [place] [address] May, [facility] [place] [facility] [address] [id number] [place] [address] May, [facility] [place] [facility] [address] [id number] [place] [address] May, [facility] [place] [facility] [address] [id number] [place] [address] May, [facility] [place] [facility] [address] [id number] [place] [address] May, [facility] [place] [facility] [address] [id number] [place] [address] May, [facility] [place] [facility] [address] [id number] [place] [address] May, [facility] [place] [facility] [address] [id number] [place] [address] Mar, [facility] [place] [facility] [address] [id number] [place] [address] May, [facility] [place] [facility] [address] [id number] [place] [address] Jan, [facility] [place] [facility] [address] [id number] [place] [address] Jul, [facility] [place] [facility] [address] [id number] [place] [address] Jun, [facility] [place] [facility] [address] [id number] [place] [address] 16 Jun, 2009 [facility] [place] [facility] [address] [id number] [place] [address] Jun, [facility] [place] [facility] [address] [id number] [place] [address] Jun, [facility] [place] [facility] [address] [id number] [place] [address] Jun, [facility] [address] [facility] [id number], [place] [address] May, [facility] [address] [id number], [place] [address] May, [facility] [address] [id number], [place] [address] May, [facility] [address] [id number], [place] [address] Jul, IMMUNIZATIONS No Known Immunizations SOCIAL HISTORY Never Assessed REASON FOR VISIT Requests return call PLAN OF CARE VITAL SIGNS MEDICATIONS Unknown [...]
--- OUTSIDE RECORDS SUMMARY | 2018-01-27 14:34 | XMS REPORT ---
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 Member Name Role Phone JASWANTMARCELLUS ARACELIS Unavailable PROBLEMS Type Condition ICD9-CM Code [id number] Code Onset Dates Condition Status SNOMED Code Problem History of hypertension Z86.79 Active 233296199 Problem Elevated LDL cholesterol level E78.00 Active 614298552 Problem Personality disorder F60.9 Active 31719802 Problem Other chronic pain G89.29 Active 40415050 Problem Hypoglycemia E16.2 Active 051216549 Problem Acute seasonal allergic rhinitis, unspecified trigger J30.2 Active 479133476 Problem Type 2 diabetes mellitus without complication, without long-term current use of insulin E11.9 Active 747854311 Problem Primary insomnia F51.01 Active 1552941 Problem Acute non intractable tension-type headache G44.209 Active 255656186 Problem Generalized anxiety disorder F41.1 Active 48621213 Problem Bipolar disorder in remission F31.70 Active 25934348 Problem Family history of diabetes insipidus Z83.49 Active 436523143 Problem Abnormal CBC R79.89 Active 056184345 Problem Bipolar disorder, current episode mixed, mild F31.61 Active 636023016 Problem History of diabetes mellitus Z86.39 Active 222594311 Problem Overweight (BMI 25.0-29.9) E66.3 Active 699075985 Problem Sore throat J02.9 Active 420074740 ALLERGIES No Information ENCOUNTERS Encounter Location Date Diagnosis [facility] [address] [facility] [address] [id number] [address] Jan, [facility] [id number] [address] Jan, [facility] [address] [facility] [address] [id number] [address] December, Cyst of ovary, unspecified laterality N83.209 [place] [id number] [place] [address] 93353- 2129 December, [place] [address] [address]42- 6381 December, Dysuria R30.0 [place] [address] [address]99- 9566 December, [place] [address] [address]85- 0495 Nov, Bipolar disorder, current episode mixed, mild F31.61 and Personality disorder F60.[address] [address]- 2747 Nov, Elevated LDL cholesterol level E78.00 and Type 2 diabetes mellitus without complication, without long-term current use of insulin E11.9 [place] [address] [address]999- 5130 Nov, Elevated LDL cholesterol level E78.00 and Type 2 diabetes mellitus without complication, without long-term current use of insulin E11.9 [place] [address] [address]- 6701 Nov, Other chronic pain G89.29 and Pain in left leg M79.605 [place] [id number] [place] [address] 67748- 2995 Nov, Acute pain of left knee M25.562 ; Syncope, unspecified syncope type R55 and Hypoglycemia E16.2 [place] [id number] [place] [address] 98332- 0503 Oct, Syncope, unspecified syncope type R55 [place] [address] 81875- 3583 Oct, Bipolar disorder, current episode mixed, mild F31.61 and Personality disorder F60.9 [place] [id number] [place] [address] 74953- 4419 23 Oct, 2017 Lump of right breast N63.10 [facility] [id number] [place] [address] 46542- 2686 22 Oct, 2017 Generalized anxiety disorder F41.1 [facility] [id number] [place] [address] 37877- 1719 Oct, Generalized anxiety disorder F41.1 ; Bipolar disorder in remission F31.70 ; Bipolar disorder, current episode mixed, mild F31.61 and Primary insomnia F51.01 [facility] [id number] [place] [address] 97036- 0303 Oct, Primary insomnia F51.01 and Lump of right breast N63.10 [place] [id number] [place] [address] 59191- 3435 16 Oct, 2017 Enteritis K52.9 [facility] [id number] [place] [address] 27026 -1855 14 Oct, 2017 Allergic conjunctivitis of both eyes H10.13 and Acute non intractable tension-type headache G44.209 [place] [id number] [place] [address] 51498- 5372 Oct, [place] [id number] [place] [address] 50773- 3974 Oct, Bipolar disorder, current episode mixed, mild F31.61 [place] [id number] [place] [address] 00912- 1902 Sep, Right flank pain R10.9 and Thoracic spine pain M54.6 [facility] [id number] [place] [address] 12596- 5906 16 Sep, 2017 Generalized anxiety disorder F41.1 and Bipolar disorder, current episode mixed, mild F31.61 [facility] [id number] [place] [address] 62422- 0239 14 Sep, 2017 [place] [id number] [place] [address] 64439- 6485 14 Sep, 2017 Generalized anxiety disorder F41.1 ; Bipolar disorder in remission F31.70 and Personality disorder F60.9 [place] [address] 19605- 8437 12 Sep, 2017 Spasm of thoracic back muscle M62.830 ; Type 2 diabetes mellitus without complication, without long-term current use of insulin E11.9 and Generalized anxiety disorder F41.1 [place] [address] 07548- 5787 12 Sep, 2017 Bipolar disorder, current episode mixed, mild F31.61 and Personality disorder F60.9 [place] [address] 29018- 7472 Aug, [place] [address] 48751- 3001 Aug, Bipolar disorder, current episode mixed, mild F31.61 and Personality disorder F60.9 [place] [address] 55582- 9676 Aug, Type 2 diabetes mellitus without complication, without long- term current use of insulin E11.9 ; Generalized anxiety disorder F41.1 ; Bipolar disorder in remission F31.70 and Overweight (BMI 25.0-29.9) E66.3 [place] [id number] [place] [address] 46830- 4751 Aug, Type 2 diabetes mellitus without complication, without long- term current use of insulin E11.9 ; Elevated LDL cholesterol level E78.00 and Bipolar disorder, current episode mixed, mild F31.61 [facility] [id number] [place] [address] 44124 -8988 Jul, Vaginal discharge N89.8 ; Skin irritation R23.8 and Dysuria R30.0 [facility] [id number] [place] [address] 85750 -3839 Jul, Acute seasonal allergic rhinitis, unspecified trigger J30.2 and Chest pain, unspecified type R07.9 [place] [id number] [place] [address] 74459- 1007 Jun, Bipolar disorder, current episode mixed, mild F31.61 [place] [address] [place] [address] [place]689[place]- 7107 Jun, [place] [address] 73322- 1534 Jun, Bipolar disorder, current episode mixed, mild F31.61 and Personality disorder F60.9 [place] [address] 58068- 9789 Jun, [address] 52264- 5495 Jun, Type 2 diabetes mellitus without complication, without long- term current use of insulin E11.9 and Dysuria R30.[address] 00262- 6142 May, Bipolar disorder, current episode mixed, mild F31.61 ; Personality disorder F60.9 and Homeless Z59.0 [place] [address] 45360- 5135 May, Type 2 diabetes mellitus without complication, without long- term current use of insulin E11.9 [place] [id number] [place] [address] 50941- 0641 May, History of hypertension Z86.79 [place] [address] 04901- 4814 May, [place] [id number] [place] [address] 99062- 7491 May, Type 2 diabetes mellitus without complication, without long- term current use of insulin E11.9 ; Elevated LDL cholesterol level E78.00 ; Low serum HDL R74.8 and Encounter for immunization Z23 [place] [id number] [place] [address] 79339- 2495 26 Sep, 2017 Encounter to establish care Z76.89 ; Abnormal CBC R79.89 ; History of hypertension Z86.79 ; Overweight (BMI 25.0-29.9) E66.3 ; Family history of diabetes insipidus Z83.49 ; Sore throat J02.9 and Tonsillitis with exudate J03.90 [facility] [id number] [place] [address] 77541- 0875 Apr, Bipolar disorder, current episode mixed, mild F31.61 [facility] [id number] [place] [address] 63452- 2203 Mar, [place] [id number] [place] [address] 37254- 5364 Mar, Bipolar disorder, current episode mixed, mild F31.61 [place] [id number] [place] [address] 13569- 1662 Mar, [place] [id number] [place] [address] 93902- 4098 Mar, Bipolar disorder in remission F31.70 [facility] [id number] [place] [address] 69731- 3078 Jan, [place] [id number] [place] [address] 92577- 5585 Jan, [facility] [id number] [place] [address] 79973- 8696 Oct, Generalized anxiety disorder F41.1 and Bipolar disorder in remission F31.70 [facility] [id number] [place] [address] 26041- 3587 Oct, [place] [id number] [place] [address] 35699- 1398 Oct, [facility] [id number] [place] [address] 33143- 5880 Oct, [facility] [id number] [place] [address] 24566- 0692 Oct, [facility] [address] [address]- 0917 Jul, [facility] [id number] [place] [address] 68393- 2166 Jun, [facility] [address] [address]- 2716 May, 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 and Generalized anxiety disorder F41.1 [facility] [id number] [address]- 1919 Jan, [facility] [id number] [place] [address] 87631- 1186 Jan, [facility] [id number] [place] [address] 979496- 8054 Jan, 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 and Generalized anxiety disorder F41.1 [facility] [id number] [place] [address] 85608- 6064 Sep, [facility] [id number] [place] [address] 14515- 2656 Sep, [facility] [id number] [place] [address] 79980- 4459 Jul, 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 and Generalized anxiety disorder F41.1 [facility] [address] 6839 Jul, Otalgia of right ear H92.01 [facility] [address] [address]- 2340 Jun, [facility] [id number] [place] [address] 22480- 5916 Mar, [facility] [address] [address]- 5846 Jan, [facility] [id number] [place] [address] 23440- 6979 Jan, [facility] [id number] [place] [address] 58439- 9889 Jan, Bipolar 1 disorder, mixed, moderate 296.62 and SHERRY ( generalized anxiety disorder) 300.02 [facility] [address] [facility] [id number] [place] [address], [place] [address]- 7969 Jan, [facility] [id number] [place] [address], [place] [address]- 1458 Nov, [facility] [address] [facility] [id number] [place] [address], [place] [address]- 2958 Nov, [facility] [id number] [place] [address], [place] [address]- 9702 Oct, [facility] [id number] [place] [address], [place]- 5726 Oct, [facility] [id number] [place] [address] 94948- 4857 Mar, [facility] [id number] [place] [address] 41765- 5866 Mar, [facility] [id number] [place] [address] 53834- 7400 Jan, [facility] [address] [address]- 4388 Jan, [facility] [id number] [place] [address] 88123- 2785 December, [facility] [id number] [address]- 3881 December, [facility] [id number] [place] [address], [place] [address]- 4274 December, [facility] [id number] [address]- 0683 December, [facility] [id number] [place] [address] 63267- 4911 December, [facility] [place] [facility] [address] [id number] [place] [address]- 1469 December, [facility] [place] [facility] [address] [id number] [place] [address]- 7840 December, [facility] [place] [facility] [address] [facility] [address] [id number] [place] [address]- 0888 December, [facility] [place] [facility] [address] [id number] [place] [address]- 1133 Nov, [facility] [place] [facility] [address] [id number] [place] [address]- 4941 Nov, [facility] [place] [facility] [address] [id number] [place] [address]- 0795 Oct, [facility] [place] [facility] [address] [id number] [place] [address]- 4547 Oct, [facility] [place] [facility] [address] [id number] [place] [address]- 1042 Oct, [facility] [place] [facility] [address] [id number] [place] [address]- 5742 Oct, [facility] [place] [facility] [address] [id number] [place] [address]- 4749 Oct, [facility] [place] [facility] [address] [id number] [place] [address]- 3205 Sep, [facility] [place] [facility] [address] [id number] [place] [address]- 2191 Sep, [facility] [place] [facility] [address] [id number] [place] [address]- 6664 Sep, [facility] [place] [facility] [address] [id number] [place] [address]- 6007 Sep, [facility] [place] [facility] [address] [id number] [place] [address]- 2593 Aug, [facility] [place] [facility] [address] [id number] [place] [address]- 4461 27 Aug, 2013 [facility] [place] [facility] [address] [id number] [place] [address]- 2037 14 Aug, 2013 [facility] [place] [facility] [address] [id number] [place] [address]- 2217 14 Aug, 2013 [facility] [place] [facility] [address] [id number] [place] [address]- 2576 13 Aug, 2013 [facility] [place] [facility] [address] [id number] [place] [address]- 1338 16 Jul, 2013 [facility] [place] [facility] [address] [id number] [place] [address]- 9303 Jul, [facility] [place] [facility] [address] [id number] [place] [address]- 2348 Jul, [facility] [place] [facility] [address] [id number] [place] [address]- 6123 Jul, [facility] [place] [facility] [address] [id number] [place] [address]- 9070 Jun, [facility] [place] [facility] [address] [id number] [place] [address]- 9038 Jun, [facility] [place] [facility] [address] [id number] [place] [address]- 8799 May, [facility] [place] [facility] [address] [id number] [place] [address]- 8511 23 May, 2013 [facility] [place] [facility] [address] [id number] [place] [address]- 0032 May, [facility] [place] [facility] [address] [id number] [place] [address]- 0678 18 May, 2013 [facility] [place] [facility] [address] [id number] [place] [address]- 4226 15 May, 2013 [facility] [place] [facility] [address] [id number] [place] [address]- 0667 May, [facility] [place] [facility] [address] [id number] [place] [address]- 2901 May, [facility] [place] [facility] [address] [id number] [place] [address]- 4412 May, [facility] [place] [facility] [address] [id number] [place] [address]- 3735 May, [facility] [place] [facility] [address] [id number] [place] [address]- 7717 Apr, [facility] [place] [facility] [address] [id number] [place] [address]- 4316 Apr, [facility] [place] [facility] [address] [id number] [place] [address]- 8970 Mar, [facility] [place] [facility] [address] [id number] [place] [address]- 5398 Mar, [facility] [place] [facility] [address] [id number] [place] [address]- 7583 Mar, [facility] [place] [facility] [address] [id number] [place] [address]- 0577 Mar, [facility] [place] [facility] [address] [id number] [place] [address]- 2736 Mar, [facility] [place] [facility] [address] [id number] [address]- 7199 Mar, [facility] [place] [facility] [address] [id number] [place] [address]- 5386 Mar, [facility] [place] [facility] [address] [id number] [place] [address]- 1137 Mar, [facility] [place] [facility] [address] [id number] [place] [address]- 4286 Mar, [facility] [place] [facility] [address] [id number] [place] [address]- 2959 Mar, [facility] [place] [facility] [address] [id number] [place] [address]- 5892 Mar, [facility] [address] [id number] [place] [address]- 1358 Jan, [facility] [address] [id number] [place] [address]- 2101 Jan, [facility] [address] [id number] [place] [address]- 0236 Jan, [facility] [address] [id number] [place] [address]- 1149 December, [facility] [address] [id number] [place] [address]- 6289 December, [facility] [address] [id number] [place] [address]- 4930 Nov, [facility] [address] [id number] [place] [address]- 3768 Nov, [facility] [address] [id number] [place] [address]- 4962 Oct, [facility] [address] [id number] [place] [address]- 4770 Oct, [facility] [address] [id number] [place] [address]- 7309 Oct, [facility] [address] [id number] [place] [address]- 0235 Oct, [facility] [address] [id number] [place] [address]- 8345 19 Oct, 2012 [facility] [address] [id number] [place] [address]- 4404 19 Oct, 2012 [facility] [address] [id number] [place] [address]- 3950 17 Oct, 2012 [facility] [address] [id number] [place] [address]- 1803 16 Oct, 2012 [facility] [address] [id number] [place] [address]- 6297 14 Oct, 2012 [facility] [address] [id number] [place] [address]- 4027 13 Oct, 2012 [facility] [place] [facility] [address] [id number] [place] [address]- 6474 05 Oct, 2012 [facility] [address] [id number] [place] [address]- 9637 14 Sep, 2012 [facility] [address] [id number] [place] [address]- 3168 08 Sep, 2012 [facility] [address] [id number] [place] [address]- 0624 Aug, [facility] [address] [id number] [place] [address]- 7195 16 Aug, 2012 [facility] [address] [id number] [place] [address]- 9994 Aug, [facility] [address] [id number] [place] [address]- 5270 Aug, [facility] [address] [id number] [place] [address]- 1761 Aug, [facility] [address] [id number] [place] [address]- 5542 Jul, [facility] [address] [id number] [place] [address]- 6949 Jul, [facility] [place] [facility] [address] [id number] [place] [address]- 4489 Jul, [facility] [place] [facility] [address] [id number] [place] [address]- 5033 Jul, [facility] [place] [facility] [address] [id number] [place] [address]- 3087 18 Jul, 2012 [facility] [address] [id number] [place] [address]- 3654 Jul, [facility] [place] [facility] [address] [id number] [place] [address]- 6286 Jul, [facility] [place] [facility] [address] [id number] [place] [address]- 9336 Jul, [facility] [place] [facility] [address] [id number] [place] [address]- 3416 Jul, [facility] [place] [facility] [address] [id number] [place] [address]- 9235 Jul, [facility] [place] [facility] [address] [id number] [place] [address]- 7607 Jul, [facility] [place] [facility] [address] [id number] [place] [address]- 9018 Jul, [facility] [place] [facility] [address] [id number] [place] [address] Jul, [facility] [place] [facility] [address] [id number] [place] [address] Jul, [facility] [place] [facility] [address] [id number] [place] [address] Jul, [facility] [place] [facility] [address] [id number] [place] [address] Jul, [facility] [place] [facility] [address] [id number] [place] [address] Jun, [facility] [place] [facility] [address] [id number] [place] [address] Jun, [facility] [place] [facility] [address] [id number] [place] [address] Jun, [facility] [place] [facility] [address] [id number] [place] [address] Jun, [facility] [place] [facility] [address] [id number] [place] [address] Jun, [facility] [place] [facility] [address] [id number] [place] [address] Jun, [facility] [place] [facility] [address] [id number] [place] [address] Jun, [facility] [place] [facility] [address] [id number] [place] [address] Jun, [facility] [place] [facility] [address] [id number] [place] [address] Jun, [facility] [place] [facility] [address] [id number] [place] [address] May, [facility] [place] [facility] [address] [id number] [place] [address] Mar, [facility] [place] [facility] [address] [id number] [place] [address] Mar, [facility] [place] [facility] [address] [id number] [place] [address] Mar, [facility] [place] [facility] [address] [id number] [place] [address] Mar, [facility] [place] [facility] [address] [id number] [place] [address] Jan, [facility] [place] [facility] [address] [id number] [place] [address] Jan, [facility] [place] [facility] [address] [id number] [place] [address] Jan, [facility] [place] [facility] [address] [id number] [place] [address] Jan, [facility] [place] [facility] [address] [id number] [place] [address] Jan, [facility] [place] [facility] [address] [id number] [place] [address] Jan, [facility] [place] [facility] [address] [id number] [place] [address] December, [facility] [place] [facility] [address] [id number] [place] [address] December, [facility] [place] [facility] [address] [id number] [place] [address] Nov, [facility] [place] [facility] [address] [id number] [place] [address] Nov, [facility] [place] [facility] [address] [id number] [place] [address] Oct, [facility] [place] [facility] [address] [id number] [place] [address] Oct, [facility] [place] [facility] [address] [id number] [place] [address] Oct, [facility] [place] [facility] [address] [id number] [place] [address] Oct, [facility] [place] [facility] [address] [id number] [place] [address] Aug, [facility] [place] [facility] [address] [id number] [place] [address] Aug, [facility] [place] [facility] [address] [id number] [place] [address] Jun, [facility] [place] [facility] [address] [id number] [place] [address] Jun, [facility] [place] [facility] [address] [id number] [place] [address] Jun, [facility] [place] [facility] [address] [id number] [place] [address]- [address] Jun, [facility] [place] [facility] [address] [id number] [place] [address] Jun, [facility] [place] [facility] [address] [id number] [place] [address] May, [facility] [place] [facility] [address] [id number] [place] [address] May, [facility] [place] [facility] [address] [address] [id number] [place] [address] May, [facility] [place] [facility] [address] [id number] [place] [address] May, [facility] [place] [facility] [address] [id number] [place] [address] May, [facility] [place] [facility] [address] [id number] [place] [address] May, [facility] [place] [facility] [address] [id number] [place] [address], [place] [address] 14 May, 2011 [facility] [place] [facility] [address] [id number] [place] [address] Mar, [facility] [place] [facility] [address] [id number] [place] [address] May, [facility] [place] [facility] [address] [id number] [place] [address] Jan, [facility] [place] [facility] [address] [id number] [place] [address] Jul, [facility] [place] [facility] [address] [id number] [place] [address] 24 Jun, 2009 [facility] [place] [facility] [address] [id number] [place] [address] 16 Jun, 2009 [facility] [place] [facility] [address] [id number] [place] [address] 11 Jun, 2009 [facility] [place] [facility] [address] [id number] [place] [address] Jun, [facility] [place] [facility] [address] [id number] [place] [address] 04 Jun, 2009 [facility] [place] [facility] [address] [id number] [place] [address] 27 May, 2009 [facility] [place] [facility] [address] [facility] [address] [id number] [place] [address] May, [facility] [address] [facility] [address] [id number] [place] [address] May, [facility] [address] [facility] [address] [id number] [place] [address] Jul, IMMUNIZATIONS No Known Immunizations SOCIAL HISTORY Never Assessed REASON FOR VISIT PALS-abilify PLAN OF CARE VITAL SIGNS MEDICATIONS Medication Instructions Dosage Frequency Start Date End Date Duration Status Abilify 5 mg Orally Once a day at bedtime 1 tablet 90 days Active RESULTS No Results PROCEDURES No Known procedures INSTRUCTIONS MEDICATIONS ADMINISTERED No Known Medications MEDICAL (GENERAL) HISTORY Type Description Date Medical History hypertension Medical History depression (hx of suicidal plan in 2012) Medical History insomnia Medical History bipolar disorder Surgical History Appendix Surgical History Tubal Ligation Hospitalization History Child /surgery Hospitalization History psych inpatient treatment, 2011
--- OUTSIDE RECORDS SUMMARY | 2018-01-27 14:34 | XMS REPORT ---
Author Author WILKINSSREEKANTH Morales Organization [facility] Address [address] [place] [address] Care Team Providers Care Spring Coiler Name Role Phone SREEKANTH WILKINS Unavailable PROBLEMS Type Condition ICD9-CM Code OUO54-WY Code Onset Dates Condition Status SNOMED Code Problem History of hypertension Z86.79 Active 075583033 Problem Elevated LDL cholesterol level E78.00 Active 087001979 Problem Personality disorder F60.9 Active 04527620 Problem Other chronic pain G89.29 Active 91374384 Problem Hypoglycemia E16.2 Active 066567759 Problem Acute seasonal allergic rhinitis, unspecified trigger J30.2 Active 712150972 Problem Type 2 diabetes mellitus without complication, without long-term current use of insulin E11.9 Active 309799635 Problem Primary insomnia F51.01 Active 3245392 Problem Acute non intractable tension-type headache G44.209 Active 115031662 Problem Generalized anxiety disorder F41.1 Active 45841809 Problem Bipolar disorder in remission F31.70 Active 05597784 Problem Family history of diabetes insipidus Z83.49 Active 925465253 Problem Abnormal CBC R79.89 Active 296043475 Problem Bipolar disorder, current episode mixed, mild F31.61 Active 004616935 Problem History of diabetes mellitus Z86.39 Active 004087745 Problem Overweight (BMI 25.0-29.9) E66.3 Active 564854770 Problem Sore throat J02.9 Active 483268123 ALLERGIES Substance Reaction Event Type Date Status MetFORMIN HCl ER nausea Drug Allergy Aug, Active Zyprexa rash Drug Allergy Aug, Active Cipro rash Drug Allergy Aug, Active ENCOUNTERS Encounter Location Date Diagnosis [facility] [address] [facility] [id number] [address] Jan, [facility] [address] [facility] [id number], [place] [address] Jan, [place] [address] [place] [id number] [place] [address] 9[address]12- 9414 Jan, Cyst of ovary, unspecified laterality N83.209 [place] [address] [place] [id number]- 2918 December, Cyst of ovary, unspecified laterality N83.209 [place] [address] [address]- [address] December, [place] [address] 89351- 8766 December, Dysuria R30.0 [place] [address] 22519- 9820 December, [place] [address] 7[address]85- 9906 Nov, Bipolar disorder, current episode mixed, mild F31.61 and Personality disorder F60.9 [place] [address] 82837- 4030 Nov, Elevated LDL cholesterol level E78.00 and Type 2 diabetes mellitus without complication, without long-term current use of insulin E11.9 [place] [address] [place] [id number] [place] [address] 29407- 7258 Nov, Elevated LDL cholesterol level E78.00 and Type 2 diabetes mellitus without complication, without long-term current use of insulin E11.9 [place] [address] [place] [id number] [place] [address] 93521- 5292 Nov, Other chronic pain G89.29 and Pain in left leg M79.605 [place] [address] 51408- 2841 Nov, Acute pain of left knee M25.562 ; Syncope, unspecified syncope type R55 and Hypoglycemia E16.2 [place] [address] 42517- 4679 Oct, Syncope, unspecified syncope type R55 [facility] [id number] [place] [address] 32925- 2818 27 Oct, 2017 Bipolar disorder, current episode mixed, mild F31.61 and Personality disorder F60.9 [facility] [id number] [place] [address] 71773- 7008 23 Oct, 2017 Lump of right breast N63.10 [place] [address] [address]59- 1905 Oct, Generalized anxiety disorder F41.1 [place] [address] [id number] [place] [address] 17128- 2631 Oct, Generalized anxiety disorder F41.1 ; Bipolar disorder in remission F31.70 ; Bipolar disorder, current episode mixed, mild F31.61 and Primary insomnia F51.01 [place] [address] [id number] [place] [address] 21249- 6809 Oct, Primary insomnia F51.01 and Lump of right breast N63.10 [place] [address] [place] [id number] [place] [address] 78944- 6599 16 Oct, 2017 Enteritis K52.9 [facility] [id number] [place] [address] 15840 -1608 14 Oct, 2017 Allergic conjunctivitis of both eyes H10.13 and Acute non intractable tension-type headache G44.209 [place] [address] [place] [address] [id number] [place] [address] 34011- 6288 14 Oct, 2017 [place] [address] [place] [address] [id number] [place] [address] 30815- 0319 Oct, Bipolar disorder, current episode mixed, mild F31.61 [place] [address] [id number] [place] [address] 06855- 7487 22 Sep, 2017 Right flank pain R10.9 and Thoracic spine pain M54.6 [place] [address] [id number] [place] [address] 30915- 0663 16 Sep, 2017 Generalized anxiety disorder F41.1 and Bipolar disorder, current episode mixed, mild F31.61 [place] [address] [id number] [place] [address] 28941- 1401 Sep, [place] [address] [id number] [place] [address] 09970- 7671 14 Sep, 2017 Generalized anxiety disorder F41.1 ; Bipolar disorder in remission F31.70 and Personality disorder F60.9 [place] [address] 57702- 7756 12 Sep, 2017 Spasm of thoracic back muscle M62.830 ; Type 2 diabetes mellitus without complication, without long-term current use of insulin E11.9 and Generalized anxiety disorder F41.1 [place] [address] [id number] [place] [address] 21705- 5944 12 Sep, 2017 Bipolar disorder, current episode mixed, mild F31.61 and Personality disorder F60.9 [place] [address] 36835- 3948 Aug, [place] [address] [id number] [place] [address] 71433- 9782 Aug, Bipolar disorder, current episode mixed, mild F31.61 and Personality disorder F60.9 [place] [address] [id number] [place] [address] 08375- 9592 Aug, Type 2 diabetes mellitus without complication, without long- term current use of insulin E11.9 ; Generalized anxiety disorder F41.1 ; Bipolar disorder in remission F31.70 and Overweight (BMI 25.0-29.9) E66.3 [place] [address] [id number] [place] [address] 74284- 9033 Aug, Type 2 diabetes mellitus without complication, without long- term current use of insulin E11.9 ; Elevated LDL cholesterol level E78.00 and Bipolar disorder, current episode mixed, mild F31.61 [facility] [id number] [place] [address] 55727 -2022 Jul, Vaginal discharge N89.8 ; Skin irritation R23.8 and Dysuria R30.0 [facility] [id number] [place] [address] 24600 -5272 Jul, Acute seasonal allergic rhinitis, unspecified trigger J30.2 and Chest pain, unspecified type R07.9 [facility] [address] 17058- 8176 Jun, Bipolar disorder, current episode mixed, mild F31.61 [place] [address] 81315- 9980 Jun, [place] [address] [place] 552874- 5251 Jun, Bipolar disorder, current episode mixed, mild F31.61 and Personality disorder F60.9 [place] [address] 11776- 6109 Jun, [facility] [address] 23824- 8662 Jun, Type 2 diabetes mellitus without complication, without long- term current use of insulin E11.9 and Dysuria R30.0 [place] [address] [id number] [place] [address] 42222- 7970 May, Bipolar disorder, current episode mixed, mild F31.61 ; Personality disorder F60.9 and Homeless Z59.0 [place] [address] [id number] [place] [address] 54096- 4304 May, Type 2 diabetes mellitus without complication, without long- term current use of insulin E11.9 [place] [address] 83474- 9822 May, History of hypertension Z86.79 [place] [address] 51805- 5847 May, [place] [address] 66451- 4979 May, Type 2 diabetes mellitus without complication, without long- term current use of insulin E11.9 ; Elevated LDL cholesterol level E78.00 ; Low serum HDL R74.8 and Encounter for immunization Z23 [place] [address] [id number] [place] [address] 43097- 7777 Apr, Encounter to establish care Z76.89 ; Abnormal CBC R79.89 ; History of hypertension Z86.79 ; Overweight (BMI 25.0-29.9) E66.3 ; Family history of diabetes insipidus Z83.49 ; Sore throat J02.9 and Tonsillitis with exudate J03.90 [place] [address] 78984- 8356 Apr, Bipolar disorder, current episode mixed, mild F31.61 [place] [address] 49893- 9750 Mar, [place] [address] 86041- 2594 Mar, Bipolar disorder, current episode mixed, mild F31.61 [place] [address] [id number] [place] [address] 59712- 9932 Mar, [place] [address] [id number] [place] [address] 28748- 1075 Mar, Bipolar disorder in remission F31.70 [place] [address] [id number] [place] [address] 52452- 3788 Jan, [place] [address] [place] [address] [id number] [place] [address] 10480- 4627 Jan, [place] [address] 72608- 9908 Oct, Generalized anxiety disorder F41.1 and Bipolar disorder in remission F31.70 [place] [address] [place] [address] [id number] [place] [address] 39056- 3666 Oct, [place] [address] 04994- 7056 Oct, [facility] [address], [place] [address]- 7026 Oct, [facility] [address], [place] [address]- 2786 Oct, [facility] [address], [place] [address]- 0696 Jul, [facility] [id number] [place] [address] 80273- 9442 Jun, [facility] [id number] [place] [address] 82160- 2609 May, 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 and Generalized anxiety disorder F41.1 [facility] [address], [place] [address]- 3140 Jan, [facility] [id number] [place] [address] 89468- 7154 Jan, [facility] [address], [place] [address]- 7165 Jan, 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 and Generalized anxiety disorder F41.1 [facility] [address], [place] [address]- 9156 Sep, [facility] [address], [place] [address]- 9968 Sep, [facility] [address] [address] 3995 Jul, 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 and Generalized anxiety disorder F41.1 [facility] [address] 4566 Jul, Otalgia of right ear H92.01 [facility] [address], [place] [address]- 6285 Jun, [facility] [address] [place] [address]- 9877 Mar, [facility] [address] [place] [address]- 4209 Jan, [facility] [id number] [place] [address]- 4241 Jan, [facility] [id number] [place] [address], [place] [address]- 7741 Jan, Bipolar 1 disorder, mixed, moderate 296.62 and SHERRY ( generalized anxiety disorder) 300.02 [facility] [address] [place] [address]- 7445 Jan, [facility] [address] [place] [address]- 4214 Nov, [facility] [address], [place] [address]- 7970 Nov, [facility] [address], [place] [address]- 7651 Oct, [facility] [address], [place] [address]- 5391 Oct, [facility] [address], [place] [address]- 7422 Mar, [facility] [address], [place] [address]- 9491 Mar, [facility] [address], [place] [address]- 8691 Jan, [facility] [address] [place] [address]- 6173 Jan, [facility] [id number], [place] [address]- 0328 December, [facility] [address] [place] [address]- 4425 December, [facility] [place] [facility] [address] [id number] [place] [address]- 1274 December, [facility] [address] [id number] [place] [address]- 6665 December, [facility] [place] [facility] [address] [id number] [place] [address]- 7246 December, [facility] [address] [id number] [place] [address]- 8934 December, [facility] [place] [facility] [address] [id number] [place] [address]- 4581 December, [facility] [place] [facility] [address] [id number] [place] [address]- 6664 December, [facility] [place] [facility] [address] [id number] [place] [address]- 4803 Nov, [facility] [place] [facility] [address] [id number] [place] [address]- 3682 Nov, [facility] [address] [id number] [place] [address]- 9017 Oct, [facility] [place] [facility] [address] [id number] [place] [address]- 7067 Oct, [facility] [address] [id number] [place] [address]- 3432 Oct, [facility] [place] [facility] [address] [id number] [place] [address]- 5724 Oct, [facility] [place] [facility] [address] [id number] [place] [address]- 2422 Oct, [facility] [place] [facility] [address] [id number] [place] [address]- 4834 Sep, [facility] [place] [facility] [address] [id number] [place] [address]- 5886 Sep, [facility] [place] [facility] [address] [id number] [place] [address]- 3717 14 Sep, 2013 [facility] [place] [facility] [address] [id number] [place] [address]- 7282 14 Sep, 2013 [facility] [place] [facility] [address] [id number] [place] [address]- 1384 Aug, [facility] [place] [facility] [address] [id number] [place] [address]- 9990 Aug, [facility] [place] [facility] [address] [id number] [place] [address]- 8552 Aug, [facility] [place] [facility] [address] [id number] [place] [address]- 5723 Aug, [facility] [place] [facility] [address] [id number] [place] [address]- 7622 Aug, [facility] [place] [facility] [address] [id number] [place] [address]- 6529 16 Jul, 2013 [facility] [place] [facility] [address] [id number], [place] [address]- 5430 Jul, [facility] [place] [facility] [address] [id number] [place] [address]- 8217 Jul, [facility] [place] [facility] [address] [id number] [place] [address]- 8880 Jul, [facility] [place] [facility] [address] [id number], [place] [address]- 7140 Jun, [facility] [place] [facility] [address] [id number], [place] [address]- 7526 Jun, [facility] [place] [facility] [address] [id number] [place] [address]- 7667 May, [facility] [place] [facility] [address] [id number], [place] [address]- 7591 May, [facility] [place] [facility] [address] [id number], [place] [address] 2540 May, [facility] [place] [facility] [address] [id number] [place] [address]- 3844 18 May, 2013 [facility] [place] [facility] [address] [id number] [place] [address]- 6735 15 May, 2013 [facility] [place] [facility] [address] [id number] [place] [address]- 9346 15 May, 2013 [facility] [place] [facility] [address] [id number] [place] [address]- 8831 May, [facility] [place] [facility] [address] [id number] [place] [address]- 0570 May, [facility] [place] [facility] [address] [id number] [place] [address]- 4308 May, [facility] [place] [facility] [address] [id number] [place] [address]- 0002 Apr, [facility] [place] [facility] [address] [id number] [place] [address]- 8437 Apr, [facility] [place] [facility] [address] [id number] [place] [address]- 9438 Mar, [facility] [place] [facility] [address] [id number] [place] [address]- 3601 Mar, [facility] [place] [facility] [address] [id number] [place] [address]- 9112 Mar, [facility] [place] [facility] [address] [id number] [place] [address]- 2543 Mar, [facility] [place] [facility] [address] [id number] [place] [address]- 3643 Mar, [facility] [place] [facility] [address] [id number] [place] [address]- 1723 Mar, [facility] [place] [facility] [address] [id number] [place] [address]- 5961 Mar, [facility] [place] [facility] [address] [id number] [place] [address]- 3825 Mar, [facility] [place] [facility] [address] [id number] [place] [address]- 4868 Mar, [facility] [address] [id number] [place] [address]- 0165 Mar, [facility] [address] [id number] [place] [address]- 1913 Mar, [facility] [address] [id number] [place] [address]- 9023 Jan, [facility] [address] [id number] [place] [address]- 4671 Jan, [facility] [address] [id number] [place] [address]- 1415 Jan, [facility] [address] [id number] [place] [address]- 8718 December, [facility] [address] [id number] [place] [address]- 6042 December, [facility] [address] [id number] [place] [address]- 5993 Nov, [facility] [address] [id number] [place] [address]- 9463 Nov, [facility] [address] [id number] [place] [address]- 6095 Oct, [facility] [address] [id number] [place] [address]- 9101 Oct, [facility] [address] [id number] [place] [address]- 4994 Oct, [facility] [place] [facility] [address] [id number] [place] [address]- 3328 Oct, [facility] [address] [id number] [place] [address]- 2260 Oct, [facility] [address] [id number] [place] [address]- 9474 19 Oct, 2012 [facility] [address] [id number] [place] [address]- 1470 17 Oct, 2012 [facility] [address] [id number] [place] [address]- 1086 16 Oct, 2012 [facility] [address] [id number] [place] [address]- 9378 14 Oct, 2012 [facility] [place] [facility] [address] [id number] [place] [address]- 8066 13 Oct, 2012 [facility] [address] [id number] [place] [address]- 1293 05 Oct, 2012 [facility] [address] [id number] [place] [address]- 1111 14 Sep, 2012 [facility] [address] [id number] [place] [address]- 9095 08 Sep, 2012 [facility] [address] [id number] [place] [address]- 8457 21 Aug, 2012 [facility] [address] [id number] [place] [address]- 5891 Aug, [facility] [address] [id number] [place] [address]- 4841 Aug, [facility] [address] [id number] [place] [address]- 4573 Aug, [facility] [place] [facility] [address] [id number] [place] [address]- 5179 Aug, [facility] [place] [facility] [address] [id number] [place] [address]- 6412 Jul, [facility] [place] [facility] [address] [id number] [place] [address]- 9797 Jul, [facility] [place] [facility] [address] [id number] [place] [address]- 7086 Jul, [facility] [place] [facility] [address] [id number] [place] [address]- 6418 19 Jul, 2012 [facility] [place] [facility] [address] [id number] [place] [address]- 6556 18 Jul, 2012 [facility] [place] [facility] [address] [id number] [place] [address]- 0976 17 Jul, 2012 [facility] [place] [facility] [address] [id number] [place] [address]- 3076 14 Jul, 2012 [facility] [place] [facility] [address] [id number] [place] [address]- 2454 14 Jul, 2012 [facility] [place] [facility] [address] [id number] [place] [address]- 2636 Jul, [facility] [place] [facility] [address] [id number] [place] [address] Jul, [facility] [place] [facility] [address] [id number] [place] [address] Jul, [facility] [place] [facility] [address] [id number] [place] [address] 05 Jul, 2012 [facility] [place] [facility] [address] [id number] [place] [address] Jul, [facility] [place] [facility] [address] [id number] [place] [address] Jul, [facility] [place] [facility] [address] [id number] [place] [address] Jul, [facility] [place] [facility] [address] [id number] [place] [address] Jul, [facility] [place] [facility] [address] [id number] [place] [address] Jun, [facility] [place] [facility] [address] [id number] [place] [address] Jun, [facility] [place] [facility] [address] [id number] [place] [address] Jun, [facility] [place] [facility] [address] [id number] [place] [address] Jun, [facility] [place] [facility] [address] [id number] [place] [address] Jun, [facility] [place] [facility] [address] [id number] [place] [address] Jun, [facility] [place] [facility] [address] [id number] [place] [address] Jun, [facility] [place] [facility] [address] [id number] [place] [address] Jun, [facility] [place] [facility] [address] [id number] [place] [address] Jun, [facility] [place] [facility] [address] [id number] [place] [address] May, [facility] [place] [facility] [address] [id number] [place] [address] Mar, [facility] [place] [facility] [address] [id number] [place] [address] Mar, [facility] [place] [facility] [address] [id number] [place] [address] Mar, [facility] [place] [facility] [address] [id number], [place] [address] Mar, [facility] [place] [facility] [address] [id number], [place] [address] Jan, [facility] [place] [facility] [address] [id number] [place] [address] Jan, [facility] [place] [facility] [address] [id number], [place] [address] Jan, [facility] [place] [facility] [address] [id number] [place] [address] Jan, [facility] [place] [facility] [address] [id number] [place] [address] Jan, [facility] [address] [id number] [place] [address] Jan, [facility] [place] [facility] [address] [id number] [place] [address] December, [facility] [place] [facility] [address] [id number] [place] [address] December, [facility] [place] [facility] [address] [id number] [place] [address] Nov, [facility] [place] [facility] [address] [id number] [place] [address] Nov, [facility] [place] [facility] [address] [id number] [place] [address] Oct, [facility] [place] [facility] [address] [id number] [place] [address] Oct, [facility] [place] [facility] [address] [id number] [place] [address] Oct, [facility] [place] [facility] [address] [id number] [place] [id number] Oct, [facility] [place] [facility] [address] [id number] [place] [address] Aug, [facility] [place] [facility] [address] [id number] [place] [address] Aug, [facility] [place] [facility] [address] [id number] [place] [address] Jun, [facility] [place] [facility] [address] [id number] [place] [address] Jun, [facility] [place] [facility] [address] [id number] [place] [address] Jun, [facility] [place] [facility] [address] [id number] [place] [address] Jun, [facility] [place] [facility] [address] [id number] [place] [address] Jun, [facility] [place] [facility] [address] [id number] [place] [address] May, [facility] [place] [facility] [address] [id number] [place] [address] May, [facility] [place] [facility] [address] [id number] [place] [address] May, [facility] [place] [facility] [address] [id number] [place] [address] May, [facility] [place] [facility] [address] [id number] [place] [address] May, [facility] [place] [facility] [address] [id number] [place] [address] May, [facility] [place] [facility] [address] [id number] [place] [address] May, [facility] [place] [facility] [address] [id number] [place] [address] Mar, [facility] [place] [facility] [address] [id number] [place] [address] May, [facility] [place] [facility] [address] [id number] [place] [address] Jan, [facility] [place] [facility] [address] [id number] [place] [address] Jul, [facility] [place] [facility] [address] [id number] [place] [address] Jun, [facility] [place] [facility] [address] [id number] [place] [address] 16 Jun, 2009 [facility] [place] [facility] [address] [id number] [place] [address] Jun, [facility] [place] [facility] [address] [id number], [place] [address] Jun, [facility] [address] [facility] [id number], [place] [address] Jun, [facility] [address] [facility] [id number], [place] [address] May, [facility] [address] [facility] [id number], [place] [address] May, [facility] [address] [facility] [id number], [place] [address] May, [facility] [address] [facility] [id number], [place] [address] Jul, IMMUNIZATIONS No Known Immunizations SOCIAL HISTORY Never Assessed REASON FOR VISIT Anxiety--[facility] PLAN OF CARE Activity Details Follow Up 4 Weeks Reason:Regular DM scheduled VITAL SIGNS Height 62 in 2017-08-07 Weight 159.9 lbs 2017-08-07 Temperature 97.9 degrees Fahrenheit 2017-08-07 Heart Rate 78 bpm 2017-08-07 Respiratory Rate 20 2017-08-07 BMI 29.24 kg/m2 2017-08-07 Blood pressure systolic 108 mmHg 2017-08-07 Blood pressure diastolic 78 mmHg 2017-08-07 MEDICATIONS Medication Instructions Dosage Frequency Start Date End Date Duration Status Aspir-81 81 MG Orally Once a day 1 tablet 24h Apr, Jan, 90 days Active Glucocard Expression Test 1 subcutaneously 2 times a day test 2 times per day 12h May, 12 months Active Melatonin 5 MG Orally take at bedtime 1 tablet Apr, Active BusPIRone HCl 15 mg Orally 3 times a day as needed 1 tablet Aug, 30 days Active Trazodone HCl 100 mg Orally at bedtime as needed for sleep 1-2 tabs Apr, 30 days Active Glimepiride 1 MG Orally Once a day 1 tablet with breakfast or the first main meal of the day 24h May, Active Zyrtec Allergy 10 MG Orally Once a day 1 tablet 24h 07 Jul, 2017 Aug, 30 day(s) Not-Taking Macrobid 100 mg Orally every 12 hrs 1 capsule with food 12h Jul, Aug, 7 day(s) Not-Taking Atorvastatin Calcium 10 mg Orally Once a day 1 tablet 24h May, 90 days Active Lisinopril 5 mg Orally Once a day 1 tablet 24h 90 days Active Flonase 50 MCG/ACT Nasally Once a day 1 spray in each nostril 24h Jul, 30 day(s) Not-Taking Abilify 5 mg Orally Once a day [...]
--- OUTSIDE RECORDS SUMMARY | 2018-01-27 14:35 | XMS REPORT ---
Author Author ABDOULAYE RAMIREZ [facility] IN [facility] Address [address] [place] [address] Care Team Providers Care Revenue Enforcement Collection Agent Name Role Phone ABDOULAYE RAMIREZ Unavailable PROBLEMS Type Condition ICD9-CM Code XOP27-HV Code Onset Dates Condition Status SNOMED Code Problem History of hypertension Z86.79 Active 222900503 Problem Elevated LDL cholesterol level E78.00 Active 960750843 Problem Personality disorder F60.9 Active 69662746 Problem Other chronic pain G89.29 Active 15481951 Problem Hypoglycemia E16.2 Active 395754612 Problem Acute seasonal allergic rhinitis, unspecified trigger J30.2 Active 071283764 Problem Type 2 diabetes mellitus without complication, without long-term current use of insulin E11.9 Active 668094312 Problem Primary insomnia F51.01 Active 7731040 Problem Acute non intractable tension-type headache G44.209 Active 952078614 Problem Generalized anxiety disorder F41.1 Active 81935664 Problem Bipolar disorder in remission F31.70 Active 58061258 Problem Family history of diabetes insipidus Z83.49 Active 545477791 Problem Abnormal CBC R79.89 Active 795626773 Problem Bipolar disorder, current episode mixed, mild F31.61 Active 323604811 Problem History of diabetes mellitus Z86.39 Active 318396838 Problem Overweight (BMI 25.0-29.9) E66.3 Active 825551067 Problem Sore throat J02.9 Active 784993160 ALLERGIES Substance Reaction Event Type Date Status MetFORMIN HCl ER nausea Drug Allergy Jul, Active Zyprexa rash Drug Allergy Jul, Active Cipro rash Drug Allergy Jul, Active ENCOUNTERS Encounter Location Date Diagnosis [facility] [address] [facility] [id number] [address] Jan, [facility] [address] [facility] [id number], [place] [address] Jan, [place] [address] [place] [id number] [place] [address] 10924- 4867 December, Cyst of ovary, unspecified laterality N83.209 [place] [address] [place] [id number] [place] [address] 76352- 6477 December, [place] [address] [address]85 December, Dysuria R30.0 [place] [address] 40314- 9392 December, [place] [address] 20073- 8522 Nov, Bipolar disorder, current episode mixed, mild F31.61 and Personality disorder F60.9 [place] [address] 90378- 0294 Nov, Elevated LDL cholesterol level E78.00 and Type 2 diabetes mellitus without complication, without long-term current use of insulin E11.9 [place] [address] [id number] [place] [address] 68515- 9645 Nov, Elevated LDL cholesterol level E78.00 and Type 2 diabetes mellitus without complication, without long-term current use of insulin E11.9 [place] [address] [id number] [place] [address] 25809- 9152 Nov, Other chronic pain G89.29 and Pain in left leg M79.605 [place] [address] [place] [id number] [place] [address] 07344- 5754 Nov, Acute pain of left knee M25.562 ; Syncope, unspecified syncope type R55 and Hypoglycemia E16.2 [place] [address] [id number] [place] [address] 12853- 7164 Oct, Syncope, unspecified syncope type R55 [place] [address] [id number] [place] [address] 86740- 9278 Oct, Bipolar disorder, current episode mixed, mild F31.61 and Personality disorder F60.9 [place] [address] [place] [id number] [place] [address] 45280- 7860 23 Oct, 2017 Lump of right breast N63.10 [place] [address] [id number] [place] [address] 55252- 4337 22 Oct, 2017 Generalized anxiety disorder F41.1 [place] [address] [id number] [place] [address] 65884- 5270 Oct, Generalized anxiety disorder F41.1 ; Bipolar disorder in remission F31.70 ; Bipolar disorder, current episode mixed, mild F31.61 and Primary insomnia F51.01 [place] [address] 51530- 9213 20 Oct, 2017 Primary insomnia F51.01 and Lump of right breast N63.10 [place] [address] [id number] [place] [address] 36437- 8390 16 Oct, 2017 Enteritis K52.9 [facility] [id number] [place] [address] 92613 -6942 14 Oct, 2017 Allergic conjunctivitis of both eyes H10.13 and Acute non intractable tension-type headache G44.209 [place] [address] [id number] [place] [address] 14468- 7368 14 Oct, 2017 [place] [address] [address] [id number] [place] [address] 04546- 7924 Oct, Bipolar disorder, current episode mixed, mild F31.61 [place] [address] [id number] [place] [address] 88413- 8429 Sep, Right flank pain R10.9 and Thoracic spine pain M54.6 [place] [address] [id number] [place] [address] 89038- 8904 16 Sep, 2017 Generalized anxiety disorder F41.1 and Bipolar disorder, current episode mixed, mild F31.61 [place] [address] [address] [id number] [place] [address] 09927- 5630 14 Sep, 2017 [place] [address] [id number] [place] [address] 00666- 4459 14 Sep, 2017 Generalized anxiety disorder F41.1 ; Bipolar disorder in remission F31.70 and Personality disorder F60.9 [place] [address] [address] [id number] [place] [address] 83872- 6292 12 Sep, 2017 Spasm of thoracic back muscle M62.830 ; Type 2 diabetes mellitus without complication, without long-term current use of insulin E11.9 and Generalized anxiety disorder F41.1 [place] [address] 59919- 3388 12 Sep, 2017 Bipolar disorder, current episode mixed, mild F31.61 and Personality disorder F60.9 [place] [address] 07951- 8114 Aug, [place] [address] 69095- 5595 Aug, Bipolar disorder, current episode mixed, mild F31.61 and Personality disorder F60.9 [place] [address] 40219- 5775 Aug, Type 2 diabetes mellitus without complication, without long- term current use of insulin E11.9 ; Generalized anxiety disorder F41.1 ; Bipolar disorder in remission F31.70 and Overweight (BMI 25.0-29.9) E66.3 [place] [address] [id number] [place] [address] 56134- 3393 Aug, Type 2 diabetes mellitus without complication, without long- term current use of insulin E11.9 ; Elevated LDL cholesterol level E78.00 and Bipolar disorder, current episode mixed, mild F31.61 [facility] [address] [place] [id number] [place] [address] 87523 -6096 Jul, Vaginal discharge N89.8 ; Skin irritation R23.8 and Dysuria R30.0 [facility] [address] [place] [id number] [place] [address] 83434 -4016 Jul, Acute seasonal allergic rhinitis, unspecified trigger J30.2 and Chest pain, unspecified type R07.9 [place] [address] [place]39412- 3747 Jun, Bipolar disorder, current episode mixed, mild F31.[address] 714591- 6525 Jun, [place] [address] [place] 707960- 2096 Jun, Bipolar disorder, current episode mixed, mild F31.61 and Personality disorder F60.9 [place]242- 5503 Jun, [address] 32298- 9282 Jun, Type 2 diabetes mellitus without complication, without long- term current use of insulin E11.9 and Dysuria R30.0 [place] [address] [id number] [place] [address] 27752- 3510 May, Bipolar disorder, current episode mixed, mild F31.61 ; Personality disorder F60.9 and Homeless Z59.0 [place] [id number] [place] [address] 69012- 3644 May, Type 2 diabetes mellitus without complication, without long- term current use of insulin E11.9 [place] [address] [place] [id number] [place] [address] 33209- 7231 May, History of hypertension Z86.[address] 44203- 0306 May, [place] [id number]- 7785 May, Type 2 diabetes mellitus without complication, without long- term current use of insulin E11.9 ; Elevated LDL cholesterol level E78.00 ; Low serum HDL R74.8 and Encounter for immunization Z23 [place] [address] [id number] [place] [address] 67115- 5503 26 Apr, 2017 Encounter to establish care Z76.89 ; Abnormal CBC R79.89 ; History of hypertension Z86.79 ; Overweight (BMI 25.0-29.9) E66.3 ; Family history of diabetes insipidus Z83.49 ; Sore throat J02.9 and Tonsillitis with exudate J03.90 [place] [address] [id number] [place] [address] 69781- 5611 Apr, Bipolar disorder, current episode mixed, mild F31.61 [place] [address] 52597- 3209 Mar, [place] [address] 66326- 7601 Mar, Bipolar disorder, current episode mixed, mild F31.61 [place] [address] [id number] [place] [address] 45556- 8512 Mar, [place] [address] [place] [id number] [place] [address] 06673- 9130 Mar, Bipolar disorder in remission F31.70 [place] [address] [id number] [place] [address] 79088- 2518 Jan, [place] [address] [place] [id number] [place] [address] 36553- 5436 Jan, [place] [address] [place] [id number] [place] [address] 18366- 6675 Oct, Generalized anxiety disorder F41.1 and Bipolar disorder in remission F31.70 [place] [address] 46314- 6279 Oct, [place] [address] [place] [id number] [place] [address] 91925- 9519 Oct, [place] [address] [place] [id number] [place] [address] 39020- 0471 Oct, [facility] [address] [address] 7320 Oct, [facility] [address] [id number] [place] [address] 74162- 6156 Jul, [facility] [id number] [place] [address] 95544- 2846 Jun, [facility] [id number] [place] [address] 27728- 7584 May, 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 and Generalized anxiety disorder F41.1 [facility] [id number] [place] [address] 10700- 5695 Jan, [facility] [id number] [place] [address] 28934- 8056 Jan, [facility] [id number] [place] [address] 53946- 3912 Jan, 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 and Generalized anxiety disorder F41.1 [facility] [address] [id number] [place] [address] 33213- 9506 Sep, [facility] [address] [id number] [place] [address] 78196- 1736 Sep, [facility] [id number] [place] [address] 89335- 8409 Jul, 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 and Generalized anxiety disorder F41.1 [facility] [address] [place] [address] 98332- 9064 Jul, Otalgia of right ear H92.01 [facility] [id number] [place] [address] 44756- 7146 Jun, [facility] [id number] [place] [address] 51039- 6666 Mar, [facility] [address] [place] [id number] [place] [address] 00412- 0988 Jan, [facility] [address], [place] [address] Jan, [facility] [id number] [place] [address] 729287- 9084 Jan, Bipolar 1 disorder, mixed, moderate 296.62 and SHERRY ( generalized anxiety disorder) 300.02 [facility] [id number] [place] [address] 91923- 3114 Jan, [facility] [address] [address]20 Nov, [facility] [id number] [place] [address] 51529- 4116 Nov, [facility] [id number] [place] [address] 21636- 9328 Oct, [facility] [address], [place] [address]- 1692 Oct, [facility] [address], [place] [address]- 9073 Mar, [facility] [address], [place] [address]- 7009 Mar, [facility] [address], [place] [address]- 4376 Jan, [facility] [address], [place] [address]- 6353 Jan, [facility] [address], [place] [address]- 7541 December, [facility] [address], [place] [address]- 6513 December, [facility] [address], [place] [address]- 9927 December, [facility] [address], [place] [address]- 9502 December, [facility] [place] [facility] [address] [id number] [place] [address]- 5367 December, [facility] [place] [facility] [address] [id number] [place] [address]- 9040 December, [facility] [place] [facility] [address] [facility] [id number] [place] [address]- 2550 December, [facility] [place] [facility] [address] [id number] [place] [address]- 8129 December, [facility] [place] [facility] [address] [id number] [place] [address]- 0424 Nov, [facility] [place] [facility] [address] [id number] [place] [address]- 6267 Nov, [facility] [place] [facility] [address] [facility] [id number] [place] [address]- 8302 Oct, [facility] [place] [facility] [address] [facility] [id number] [place] [address]- 6915 Oct, [facility] [place] [facility] [address] [facility] [id number] [place] [address]- 4229 Oct, [facility] [place] [facility] [address] [facility] [id number] [place] [address]- 1967 Oct, [facility] [place] [facility] [address] [id number] [place] [address]- 9826 Oct, [facility] [place] [facility] [address] [facility] [id number] [place] [address]- 9399 Sep, [facility] [place] [facility] [address] [id number] [place] [address]- 1241 Sep, [facility] [place] [facility] [address] [id number] [place] [address]- 2887 Sep, [facility] [place] [facility] [address] [facility] [id number] [place] [address]- 5732 Sep, [facility] [place] [facility] [address] [id number] [place] [address]- 0780 Aug, [facility] [place] [facility] [address] [id number] [place] [address]- 2296 Aug, [facility] [place] [facility] [address] [id number] [place] [address]- 7447 Aug, [facility] [place] [facility] [address] [id number] [place] [address]- 1697 14 Aug, 2013 [facility] [address] [id number] [place] [address]- 8691 Aug, [facility] [place] [facility] [address] [id number] [place] [address]- 9031 Jul, [facility] [place] [facility] [address] [id number] [place] [address]- 4765 Jul, [facility] [address] [id number] [place] [address]- 1342 Jul, [facility] [place] [facility] [address] [id number] [place] [address]- 6676 Jul, [facility] [place] [facility] [address] [id number] [place] [address]- 1910 Jun, [facility] [place] [facility] [address] [id number] [place] [address]- 3007 Jun, [facility] [place] [facility] [address] [id number], [place] [address]- 4226 May, [facility] [place] [facility] [address] [id number] [place] [address]- 6096 May, [facility] [place] [facility] [address] [id number] [place] [address]- 7309 May, [facility] [place] [facility] [address] [id number] [place] [address]- 4590 May, [facility] [place] [facility] [address] [id number] [place] [address]- 5718 May, [facility] [place] [facility] [address] [id number] [place] [address]- 0476 May, [facility] [place] [facility] [address] [id number] [place] [address]- 3263 May, [facility] [place] [facility] [address] [id number] [place] [address]- 9475 May, [facility] [place] [facility] [address] [id number] [place] [address]- 3389 May, [facility] [place] [facility] [address] [id number] [place] [address]- 5032 Apr, [facility] [place] [facility] [address] [id number] [place] [address]- 0104 Apr, [facility] [place] [facility] [address] [id number] [place] [address]- 9630 Mar, [facility] [place] [facility] [address] [id number] [place] [address]- 8282 Mar, [facility] [place] [facility] [address] [id number] [place] [address]- 5647 Mar, [facility] [place] [facility] [address] [id number] [place] [address]- 9091 Mar, [facility] [place] [facility] [address] [id number] [place] [address]- 6892 Mar, [facility] [place] [facility] [address] [id number] [place] [address]- 3052 Mar, [facility] [place] [facility] [address] [id number] [place] [address]- 3531 Mar, [facility] [place] [facility] [address] [id number] [place] [address]- 1685 Mar, [facility] [place] [facility] [address] [id number] [place] [address]- 2018 Mar, [facility] [place] [facility] [address] [id number] [place] [address]- 2546 Mar, [facility] [address] [id number] [place] [address]- 1970 Mar, [facility] [address] [id number] [place] [address]- 2546 Jan, [facility] [address] [id number] [place] [address]- 5688 Jan, [facility] [address] [id number] [place] [address]- 1087 Jan, [facility] [address] [id number] [place] [address]- 7072 December, [facility] [address] [id number] [place] [address]- 2726 December, [facility] [address] [id number] [place] [address]- 0646 Nov, [facility] [address] [id number] [place] [address]- 8465 Nov, [facility] [address] [id number] [place] [address]- 5014 Oct, [facility] [address] [id number] [place] [address]- 3601 Oct, [facility] [address] [id number] [place] [address]- 1419 Oct, [facility] [address] [id number] [place] [address]- 5662 Oct, [facility] [address] [id number] [place] [address]- 8576 19 Oct, 2012 [facility] [address] [id number] [place] [address]- 2546 Oct, [facility] [address] [id number] [place] [address]- 1933 17 Oct, 2012 [facility] [address] [id number] [place] [address]- 9194 16 Oct, 2012 [facility] [address] [id number] [place] [address]- 3391 14 Oct, 2012 [facility] [address] [id number] [place] [address]- 6586 13 Oct, 2012 [facility] [address] [id number] [place] [address]- 9222 05 Oct, 2012 [facility] [address] [id number] [place] [address]- 8651 14 Sep, 2012 [facility] [address] [id number] [place] [address]- 9838 08 Sep, 2012 [facility] [address] [id number] [place] [address]- 1721 Aug, [facility] [address] [id number] [place] [address]- 3919 16 Aug, 2012 [facility] [address] [id number] [place] [address]- 6604 Aug, [facility] [address] [id number] [place] [address]- 0289 Aug, [facility] [address] [id number] [place] [address]- 3408 Aug, [facility] [address] [id number], [place] [address]- 9409 Jul, [facility] [place] [facility] [address] [id number] [place] [address]- 2808 Jul, [facility] [place] [facility] [address] [id number] [place] [address]- 4865 Jul, [facility] [place] [facility] [address] [id number] [place] [address]- 7050 Jul, [facility] [place] [facility] [address] [id number] [place] [address] 18 Jul, 2012 [facility] [place] [facility] [address] [id number] [place] [address] 17 Jul, 2012 [facility] [place] [facility] [address] [id number] [place] [address] 14 Jul, 2012 [facility] [place] [facility] [address] [id number] [place] [address] 14 Jul, 2012 [facility] [place] [facility] [address] [id number] [place] [address] 06 Jul, 2012 [facility] [place] [facility] [address] [id number] [place] [address] 06 Jul, 2012 [facility] [place] [facility] [address] [id number] [place] [address] 05 Jul, 2012 [facility] [place] [facility] [address] [id number] [place] [address] 05 Jul, 2012 [facility] [place] [facility] [address] [id number] [place] [address] Jul, [facility] [place] [facility] [address] [id number] [place] [address] Jul, [facility] [place] [facility] [address] [facility] [id number] [place] [address] Jul, [facility] [place] [facility] [address] [id number] [place] [address] Jul, [facility] [place] [facility] [address] [id number] [place] [address] Jun, [facility] [place] [facility] [address] [id number] [place] [address] Jun, [facility] [place] [facility] [address] [id number] [place] [address] Jun, [facility] [place] [facility] [address] [id number] [place] [address] Jun, [facility] [place] [facility] [address] [id number] [place] [address] Jun, [facility] [place] [facility] [address] [id number] [place] [address] 1668 Jun, [facility] [place] [facility] [address] [id number] [place] [address] Jun, [facility] [place] [facility] [address] [id number] [place] [address] Jun, [facility] [place] [facility] [address] [id number] [place] [address] Jun, [facility] [place] [facility] [address] [id number] [place] [address] May, [facility] [place] [facility] [address] [id number] [place] [address] Mar, [facility] [place] [facility] [address] [id number] [place] [address] Mar, [facility] [place] [facility] [address] [id number] [place] [address] Mar, [facility] [place] [facility] [address] [id number] [place] [address] Mar, [facility] [place] [facility] [address] [id number] [place] [address] Jan, [facility] [place] [facility] [address] [id number] [place] [address] Jan, [facility] [place] [facility] [address] [id number] [place] [address] Jan, [facility] [place] [facility] [address] [id number] [place] [address] Jan, [facility] [place] [facility] [address] [id number] [place] [address] Jan, [facility] [place] [facility] [address] [id number] [place] [address] Jan, [facility] [place] [facility] [address] [id number] [place] [address] December, [facility] [place] [facility] [address] [id number] [place] [address] December, [facility] [place] [facility] [address] [id number] [place] [address] Nov, [facility] [place] [facility] [address] [id number] [place] [address] Nov, [facility] [place] [facility] [address] [id number] [place] [address] Oct, [facility] [place] [facility] [address] [id number] [place] [address] Oct, [facility] [place] [facility] [address] [id number] [place] [address] Oct, [facility] [place] [facility] [address] [id number] [place] [address] Oct, [facility] [place] [facility] [address] [id number] [place] [address] Aug, [facility] [place] [facility] [address] [id number] [place] [address] Aug, [facility] [place] [facility] [address] [id number], [place] [address] Jun, [facility] [place] [facility] [address] [id number], [place] [address] Jun, [facility] [place] [facility] [address] [id number] [place] [address] Jun, [facility] [place] [facility] [address] [id number] [place] [address] Jun, [facility] [place] [facility] [address] [id number] [place] [address] Jun, [facility] [place] [facility] [address] [id number] [place] [address] May, [facility] [address] [id number] [place] [address] May, [facility] [place] [facility] [address] [id number] [place] [address] May, [facility] [place] [facility] [address] [id number] [place] [address] May, [facility] [place] [facility] [address] [id number] [place] [address] May, [facility] [place] [facility] [address] [id number] [place] [address] May, [facility] [place] [facility] [address] [id number] [place] [address] May, [facility] [place] [facility] [address] [id number] [place] [address] Mar, [facility] [place] [facility] [address] [id number] [place] [address] May, [facility] [place] [facility] [address] [id number] [place] [address] Jan, [facility] [place] [facility] [address] [id number] [place] [address] Jul, [facility] [place] [facility] [address] [id number] [place] [address] Jun, [facility] [place] [facility] [address] [id number] [place] [address] 16 Jun, 2009 [facility] [place] [facility] [address] [id number] [place] Jun, [facility] [place] [facility] [address] [id number] [place] [address] Jun, [facility] [place] [facility] [address] [id number] [place] [address] Jun, [facility] [address] [facility] [id number], [place] [address] May, [facility] [address] [facility] [id number], [place] [address] May, [facility] [address] [facility] [id number], [place] [address] May, [facility] [address] [facility] [id number] [address] Jul, IMMUNIZATIONS No Known Immunizations SOCIAL HISTORY Never Assessed REASON FOR VISIT Congestion and chest pressure/burning JStrasserRN PLAN OF CARE Activity Details Follow Up prn Reason: VITAL SIGNS Height 62 in 2017-07-09 Weight 158.4 lbs 2017-07-09 Temperature 96.9 degrees Fahrenheit 2017-07-09 Heart Rate 88 bpm 2017-07-09 Respiratory Rate 20 2017-07-09 BMI 28.97 kg/m2 2017-07-09 Blood pressure systolic 118 mmHg 2017-07-09 Blood pressure diastolic 78 mmHg 2017-07-09 MEDICATIONS Medication Instructions Dosage Frequency Start Date End Date Duration Status Flonase 50 MCG/ACT Nasally Once a day 1 spray in each nostril 24h Jul, 30 day(s) Active Zyrtec Allergy 10 MG Orally Once a day 1 tablet 24h Jul, Aug, 30 day(s) Active Glimepiride 1 MG Orally Once a day 1 tablet with breakfast or the first main meal of the day 24h May, 90 days Active Lisinopril 5 mg Orally Once a day 1 tablet 24h 30 Active Aspir-81 81 MG Orally Once a day 1 tablet 24h Apr, Jan, 90 days Active Glucocard Expression Test 1 subcutaneously 2 times a day test 2 times per day 12h May, 12 months Active Trazodone HCl 100 MG Orally at bedtime as needed for sleep 1-2 tabs Apr, Active Atorvastatin Calcium 10 mg Orally Once a day 1 tablet 24h May, 90 days Active Melatonin 5 MG Orally take at bedtime 1 tablet Apr, Active Abilify 5 mg Orally Once a day at bedtime 1 tablet 90 days Active RESULTS No Results PROCEDURES Procedure Date Ordered Result Body Site EKG, TRACING (IN-HOUSE) 2017-07-09 N/A ELECTROCARDIOGRAM, TRACING Jul 09, 2017 INSTRUCTIONS MEDICATIONS ADMINISTERED No Known Medications MEDICAL (GENERAL) HISTORY Type Description Date Medical History hypertension Medical History depression (hx of suicidal plan in 2012) Medical History insomnia Medical History bipolar disorder Surgical History Appendix Surgical History Tubal Ligation Hospitalization History Child /surgery Hospitalization History psych inpatient treatment, SI 2011
--- OUTSIDE RECORDS SUMMARY | 2018-01-27 14:35 | XMS REPORT ---
Author Author WILKINSSREEKANTH Morales Organization [facility] Address [address] [place] [address] Care Team Providers Care Second Baker Name Role Phone SREEKANTH WILKINS Unavailable PROBLEMS Type Condition ICD9-CM Code [id number] Code Onset Dates Condition Status SNOMED Code Problem History of hypertension Z86.79 Active 788308215 Problem Elevated LDL cholesterol level E78.00 Active 086051541 Problem Personality disorder F60.9 Active 02406945 Problem Other chronic pain G89.29 Active 34623891 Problem Hypoglycemia E16.2 Active 714443583 Problem Acute seasonal allergic rhinitis, unspecified trigger J30.2 Active 620635089 Problem Type 2 diabetes mellitus without complication, without long-term current use of insulin E11.9 Active 555934557 Problem Primary insomnia F51.01 Active 4992684 Problem Acute non intractable tension-type headache G44.209 Active 258423516 Problem Generalized anxiety disorder F41.1 Active 05003687 Problem Bipolar disorder in remission F31.70 Active 22396816 Problem Family history of diabetes insipidus Z83.49 Active 153626625 Problem Abnormal CBC R79.89 Active 302770110 Problem Bipolar disorder, current episode mixed, mild F31.61 Active 375950495 Problem History of diabetes mellitus Z86.39 Active 482817030 Problem Overweight (BMI 25.0-29.9) E66.3 Active 692696638 Problem Sore throat J02.9 Active 997778382 ALLERGIES No Information ENCOUNTERS Encounter Location Date Diagnosis [facility] [address] [facility] [id number] [address] Jan, [facility] [address] [place] [address] 54814- 5392 Jan, [facility] [address] [id number] [address] 15 Jan, 2018 Cyst of ovary, unspecified laterality N83.209 [place] [id number] [place] [address] 03718- 2062 December, Cyst of ovary, unspecified laterality N83.209 [place] [address] [address]21- 6015 December, [place] [address] 09562- 7082 December, Dysuria R30.0 [place] [address] 95972- 3785 December, [place] [address] [address]- 1965 Nov, Bipolar disorder, current episode mixed, mild F31.61 and Personality disorder F60.[address] [address]- 8[address] Nov, Elevated LDL cholesterol level E78.00 and Type 2 diabetes mellitus without complication, without long-term current use of insulin E11.9 [place] [address] 68334- 9054 Nov, Elevated LDL cholesterol level E78.00 and Type 2 diabetes mellitus without complication, without long-term current use of insulin E11.9 [place] [id number] [place] [address] 64454- 9293 Nov, Other chronic pain G89.29 and Pain in left leg M79.605 [place] [address] 19668- 6831 Nov, Acute pain of left knee M25.562 ; Syncope, unspecified syncope type R55 and Hypoglycemia E16.2 [place] [address] 00759- 8336 Oct, Syncope, unspecified syncope type R55 [place] [address] 49325- 0148 Oct, Bipolar disorder, current episode mixed, mild F31.61 and Personality disorder F60.9 [facility] [id number] [place] [address] 42194- 5240 23 Oct, 2017 Lump of right breast N63.10 [facility] [id number] [place] [address] 22823- 8002 22 Oct, 2017 Generalized anxiety disorder F41.1 [place] [address] 25952- 9945 Oct, Generalized anxiety disorder F41.1 ; Bipolar disorder in remission F31.70 ; Bipolar disorder, current episode mixed, mild F31.61 and Primary insomnia F51.01 [place] [address] 70404- 7415 20 Oct, 2017 Primary insomnia F51.01 and Lump of right breast N63.10 [place] [address] 08420- 9544 16 Oct, 2017 Enteritis K52.9 [facility] [address] [address]342 14 Oct, 2017 Allergic conjunctivitis of both eyes H10.13 and Acute non intractable tension-type headache G44.209 [place] [id number] [place] [address] 83484- 6916 14 Oct, 2017 [place] [id number] [place] [address] 03062- 7257 Oct, Bipolar disorder, current episode mixed, mild F31.61 [place] [id number] [place] [address] 34612- 7335 Sep, Right flank pain R10.9 and Thoracic spine pain M54.6 [place] [id number] [place] [address] 54308- 3539 16 Sep, 2017 Generalized anxiety disorder F41.1 and Bipolar disorder, current episode mixed, mild F31.61 [place] [address] 49261- 1724 14 Sep, 2017 [place] [id number] [place] [address] 35089- 2217 14 Sep, 2017 Generalized anxiety disorder F41.1 ; Bipolar disorder in remission F31.70 and Personality disorder F60.9 [place] [address] 16200- 6530 12 Sep, 2017 Spasm of thoracic back muscle M62.830 ; Type 2 diabetes mellitus without complication, without long-term current use of insulin E11.9 and Generalized anxiety disorder F41.1 [place] [address] 89062- 0657 12 Sep, 2017 Bipolar disorder, current episode mixed, mild F31.61 and Personality disorder F60.9 [place] [id number] [place] [address] 02289- 8400 Aug, [place] [id number] [place] [address] 59850- 7170 Aug, Bipolar disorder, current episode mixed, mild F31.61 and Personality disorder F60.9 [place] [address] 33682- 4860 05 Aug, 2017 Type 2 diabetes mellitus without complication, without long- term current use of insulin E11.9 ; Generalized anxiety disorder F41.1 ; Bipolar disorder in remission F31.70 and Overweight (BMI 25.0-29.9) E66.3 [place] [id number] [place] [address] 74843- 7015 Aug, Type 2 diabetes mellitus without complication, without long- term current use of insulin E11.9 ; Elevated LDL cholesterol level E78.00 and Bipolar disorder, current episode mixed, mild F31.61 [facility] [address] [place] [address] 54455 -6996 Jul, Vaginal discharge N89.8 ; Skin irritation R23.8 and Dysuria R30.0 [facility] [address] [place] [address] [place] [address] Jul, Acute seasonal allergic rhinitis, unspecified trigger J30.2 and Chest pain, unspecified type R07.9 [place] [id number]- 587 Jun, Bipolar disorder, current episode mixed, mild F31.61 [place] [address]- 3707 Jun, [place] [address] [place] 19563496- 6543 Jun, Bipolar disorder, current episode mixed, mild F31.61 and Personality disorder F60.9 [place]228- 7146 Jun, [address] 46235- 8487 Jun, Type 2 diabetes mellitus without complication, without long- term current use of insulin E11.9 and Dysuria R30.[address] 45685- 2683 May, Bipolar disorder, current episode mixed, mild F31.61 ; Personality disorder F60.9 and Homeless Z59.[address] 41614- 7652 May, Type 2 diabetes mellitus without complication, without long- term current use of insulin E11.9 [place] [address] 11055- 5687 May, History of hypertension Z86.[address] 66097- 7764 May, [place] [address]- 9684 May, Type 2 diabetes mellitus without complication, without long- term current use of insulin E11.9 ; Elevated LDL cholesterol level E78.00 ; Low serum HDL R74.8 and Encounter for immunization Z23 [place] [id number] [place] [address] 64170- 8366 26 Apr, 2017 Encounter to establish care Z76.89 ; Abnormal CBC R79.89 ; History of hypertension Z86.79 ; Overweight (BMI 25.0-29.9) E66.3 ; Family history of diabetes insipidus Z83.49 ; Sore throat J02.9 and Tonsillitis with exudate J03.90 [place] [id number] [place] [address] 98475- 5987 Apr, Bipolar disorder, current episode mixed, mild F31.61 [place] [address] 66470- 5188 Mar, [place] [id number] [place] [address] 93604- 4455 Mar, Bipolar disorder, current episode mixed, mild F31.61 [place] [id number] [place] [address] 96354- 7320 Mar, [place] [id number] [place] [address] 30821- 5173 Mar, Bipolar disorder in remission F31.70 [place] [id number] [place] [address] 68358- 0780 Jan, [place] [id number] [place] [address] 37908- 9195 Jan, [place] [id number] [place] [address] 24140- 8589 Oct, Generalized anxiety disorder F41.1 and Bipolar disorder in remission F31.70 [place] [id number] [place] [address] 53643- 7216 Oct, [place] [id number] [place] [address] 45659- 6728 Oct, [place] [address] 55085- 6250 Oct, [facility] [address] [address]- 9147 Oct, [facility] [address] [place] [address] 07655- 5876 Jul, [facility] [id number] [place] [address] 09894 2546 Jun, [facility] [id number] [place] [address] 40072- 4328 May, 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 and Generalized anxiety disorder F41.1 [facility] [id number] [place] [address] 98595- 4369 Jan, [facility] [id number] [place] [address] 89950- 0856 Jan, [facility] [id number] [place] [address] 86404- 6687 Jan, 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 and Generalized anxiety disorder F41.1 [facility] [address] [place] [address] 24995- 4236 Sep, [facility] [id number] [place] [address] 43244- 9636 Sep, [facility] [address] [place] [address] 506861- 5058 Jul, 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 and Generalized anxiety disorder F41.1 [facility] [address] [address]- 7645 Jul, Otalgia of right ear H92.01 [facility] [address] [place] [address] 50570- 2796 Jun, [facility] [address] [address]- 7686 Mar, [facility] [id number] [address]- 6234 Jan, [facility] [address] [address]- 9910 Jan, [facility] [id number] [address]- 1337 Jan, Bipolar 1 disorder, mixed, moderate 296.62 and SHERRY ( generalized anxiety disorder) 300.02 [facility] [id number] [address]- 4564 Jan, [facility] [address] [place] [address], [place] [address]- 0550 Nov, [facility] [id number] [place] [address] 26858- 9571 Nov, [facility] [id number] [address]- 8159 Oct, [facility] [address] [address]- 1936 Oct, [facility] [address] [address]- 6196 Mar, [facility] [address] [address]- 0693 Mar, [facility] [address] [address]- 3379 Jan, [facility] [address] [address]- 6457 Jan, [facility] [address] [address]- 5911 December, [facility] [address] 4641 December, [facility] [id number] 3513 December, [facility] [id number] [place] [address]- 0338 December, [facility] [place] [facility] [address] [id number] [place] [address]- 1256 December, [facility] [place] [facility] [address] [id number] [place] [address]- 9998 December, [facility] [place] [facility] [address] [id number] [place] [address]- 1136 December, [facility] [place] [facility] [address] [id number] [place] [address]- 3583 December, [facility] [place] [facility] [address] [id number] [place] [address]- 4356 Nov, [facility] [place] [facility] [address] [id number] [place] [address]- 8753 Nov, [facility] [place] [facility] [address] [id number] [place] [address]- 2450 Oct, [facility] [place] [facility] [address] [id number] [place] [address]- 8345 Oct, [facility] [place] [facility] [address] [id number] [place] [address]- 8711 Oct, [facility] [place] [facility] [address] [facility] [id number] [place] [address]- 1482 Oct, [facility] [place] [facility] [address] [id number] [place] [address]- 1386 Oct, [facility] [place] [facility] [address] [id number] [place] [address]- 3864 Sep, [facility] [place] [facility] [address] [id number] [place] [address]- 3765 Sep, [facility] [place] [facility] [address] [id number] [place] [address]- 1507 Sep, [facility] [place] [facility] [address] [id number] [place] [address]- 4906 Sep, [facility] [place] [facility] [address] [id number] [place] [address]- 9368 Aug, [facility] [place] [facility] [address] [id number] [place] [address]- 5341 Aug, [facility] [place] [facility] [address] [id number] [place] [address]- 9585 Aug, [facility] [place] [facility] [address] [id number] [place] [address]- 8978 Aug, [facility] [place] [facility] [address] [id number] [place] [address]- 1283 Aug, [facility] [place] [facility] [address] [id number] [place] [address]- 9707 Jul, [facility] [place] [facility] [address] [id number] [place] [address]- 7356 Jul, [facility] [place] [facility] [address] [id number] [place] [address]- 0391 Jul, [facility] [place] [facility] [address] [id number] [place] [address]- 8672 Jul, [facility] [place] [facility] [address] [id number] [place] [address]- 4577 Jun, [facility] [place] [facility] [address] [id number] [place] [address]- 4268 Jun, [facility] [place] [facility] [address] [id number] [place] [address]- 9441 May, [facility] [place] [facility] [address] [id number] [place] [address]- 5355 May, [facility] [place] [facility] [address] [id number] [place] [address]- 7126 May, [facility] [place] [facility] [address] [id number] [place] [address]- 1251 May, [facility] [place] [facility] [address] [id number] [place] [address]- 3142 May, [facility] [place] [facility] [address] [id number] [place] [address]- 5975 15 May, 2013 [facility] [place] [facility] [address] [id number] [place] [address]- 0745 May, [facility] [place] [facility] [address] [id number] [place] [address]- 1000 May, [facility] [place] [facility] [address] [id number] [place] [address]- 0633 May, [facility] [place] [facility] [address] [id number] [place] [address]- 0080 Apr, [facility] [place] [facility] [address] [id number] [place] [address]- 9652 Apr, [facility] [place] [facility] [address] [id number] [place] [address]- 0783 Mar, [facility] [place] [facility] [address] [id number] [place] [address]- 0425 Mar, [facility] [place] [facility] [address] [id number] [place] [address]- 3197 Mar, [facility] [place] [facility] [address] [id number] [place] [address]- 9137 Mar, [facility] [place] [facility] [address] [id number] [place] [address]- 2615 Mar, [facility] [place] [facility] [address] [id number] [address]- 6466 Mar, [facility] [place] [facility] [address] [id number] [place] [address]- 5867 Mar, [facility] [place] [facility] [address] [id number] [place] [address]- 1438 Mar, [facility] [place] [facility] [address] [id number] [place] [address]- 2419 Mar, [facility] [place] [facility] [address] [id number] [place] [address] 2546 Mar, [facility] [address] [id number] [place] [address]- 5709 Mar, [facility] [place] [facility] [address] [id number] [place] [address]- 2546 Jan, [facility] [place] [facility] [address] [id number] [place] [address]- 4172 Jan, [facility] [place] [facility] [address] [id number] [place] [address]- 0935 Jan, [facility] [place] [facility] [address] [id number] [place] [address]- 0737 December, [facility] [place] [facility] [address] [id number] [place] [address]- 2201 December, [facility] [place] [facility] [address] [id number] [place] [address]- 1569 Nov, [facility] [address] [id number] [place] [address]- 1719 Nov, [facility] [place] [facility] [address] [id number] [place] [address]- 6450 Oct, [facility] [place] [facility] [address] [id number] [place] [address]- 7808 Oct, [facility] [place] [facility] [address] [id number] [place] [address]- 3496 Oct, [facility] [place] [facility] [address] [id number] [place] [address]- 6185 Oct, [facility] [place] [facility] [address] [id number] [place] [address]- 0258 Oct, [facility] [place] [facility] [address] [id number] [place] [address]- 2546 Oct, [facility] [place] [facility] [address] [id number] [place] [address]- 6722 17 Oct, 2012 [facility] [address] [id number] [place] [address]- 8454 16 Oct, 2012 [facility] [place] [facility] [address] [id number] [place] [address]- 0697 14 Oct, 2012 [facility] [place] [facility] [address] [id number] [place] [address]- 1560 13 Oct, 2012 [facility] [place] [facility] [address] [id number] [place] [address]- 4225 05 Oct, 2012 [facility] [address] [id number] [place] [address]- 0320 14 Sep, 2012 [facility] [place] [facility] [address] [id number] [place] [address]- 5670 08 Sep, 2012 [facility] [place] [facility] [address] [id number] [place] [address]- 0740 Aug, [facility] [place] [facility] [address] [id number] [place] [address]- 2410 16 Aug, 2012 [facility] [address] [id number] [place] [address]- 7644 Aug, [facility] [place] [facility] [address] [id number] [place] [address]- 4399 Aug, [facility] [address] [id number] [place] [address]- 7192 Aug, [facility] [place] [facility] [address] [id number] [address]- 1091 Jul, [facility] [place] [facility] [address] [id number] [place] [address]- 0589 Jul, [facility] [place] [facility] [address] [id number] [place] [address]- 9346 Jul, [facility] [place] [facility] [address] [id number] [place] [address]- 1859 Jul, [facility] [place] [facility] [address] [id number] [place] [address]- 1125 18 Jul, 2012 [facility] [address] [id number] [place] [address]- 3476 17 Jul, 2012 [facility] [address] [id number] [place] [address]- 4916 14 Jul, 2012 [facility] [address] [id number] [place] [address]- 9246 14 Jul, 2012 [facility] [address] [id number] [place] [address]- 5501 06 Jul, 2012 [facility] [address] [id number] [place] [address]- 2926 06 Jul, 2012 [facility] [address] [id number] [place] [address] 05 Jul, 2012 [facility] [address] [id number] [place] [address] 05 Jul, 2012 [facility] [address] [id number] [place] [address] Jul, [facility] [address] [id number] [place] [address] Jul, [facility] [address] [id number] [place] [address] Jul, [facility] [address] [id number] [place] [address] Jul, [facility] [address] [id number] [place] [address] Jun, [facility] [place] [facility] [address] [id number] [place] [address] Jun, [facility] [place] [facility] [address] [id number] [place] [address] Jun, [facility] [address] [id number] [place] [address] Jun, [facility] [place] [facility] [address] [id number] [place] [address] Jun, [facility] [place] [facility] [address] [id number] [place] [address] Jun, [facility] [place] [facility] [address] [id number] [place] [address] Jun, [facility] [place] [facility] [address] [id number] [place] [address] Jun, [facility] [place] [facility] [address] [id number] [place] [address] Jun, [facility] [place] [facility] [address] [id number] [place] [address] May, [facility] [place] [facility] [address] [id number] [place] [address] Mar, [facility] [place] [facility] [address] [id number] [place] [address] Mar, [facility] [place] [facility] [address] [id number] [place] [address] Mar, [facility] [place] [facility] [address] [id number] [place] [address] Mar, [facility] [place] [facility] [address] [id number] [place] [address] Jan, [facility] [place] [facility] [address] [id number] [place] [address] Jan, [facility] [place] [facility] [address] [id number] [place] [address] Jan, [facility] [place] [facility] [address] [id number] [place] [address] Jan, [facility] [place] [facility] [address] [id number] [place] [address] Jan, [facility] [place] [facility] [address] [id number] [place] [address] Jan, [facility] [address] [id number] [place] [address] December, [facility] [place] [facility] [address] [id number] [place] [address] December, [facility] [place] [facility] [address] [id number] [place] [address] Nov, [facility] [place] [facility] [address] [id number] [place] [address] Nov, [facility] [place] [facility] [address] [id number] [place] [address] Oct, [facility] [place] [facility] [address] [id number] [place] [address] Oct, [facility] [place] [facility] [address] [id number] [place] [address] Oct, [facility] [place] [facility] [address] [id number] [place] [address] Oct, [facility] [place] [facility] [address] [id number] [place] [address] Aug, [facility] [place] [facility] [address] [id number] [place] [address] Aug, [facility] [place] [facility] [address] [id number] [place] [address] Jun, [facility] [place] [facility] [address] [id number] [place] [address] Jun, [facility] [place] [facility] [address] [id number] [place] [address] Jun, [facility] [place] [facility] [address] [id number] [place] [address] Jun, [facility] [place] [facility] [address] [id number] [place] [address] Jun, [facility] [place] [facility] [address] [id number] [place] [address] May, [facility] [place] [facility] [address] [id number] [place] [address] May, [facility] [place] [facility] [address] [id number] [place] [address] May, [facility] [place] [facility] [address] [id number] [place] [address] May, [facility] [place] [facility] [address] [id number] [place] [address] May, [facility] [place] [facility] [address] [id number] [place] [address] May, [facility] [place] [facility] [address] [id number] [place] [address] May, [facility] [place] [facility] [address] [id number] [place] [address] Mar, [facility] [place] [facility] [address] [id number] [place] [address] May, [facility] [place] [facility] [address] [id number] [place] [address] Jan, [facility] [place] [facility] [address] [id number] [place] [address] Jul, [facility] [place] [facility] [address] [id number] [place] [address] Jun, [facility] [place] [facility] [address] [id number] [place] [address] 16 Jun, 2009 [facility] [place] [facility] [address] [id number] [place] [address] Jun, [facility] [place] [facility] [address] [id number] [place] [address] Jun, [facility] [place] [facility] [address] [id number] [place] [address] Jun, [facility] [address] [facility] [id number] [place] [address] May, [facility] [address] [facility] [id number] [place] [address] May, [facility] [address] [facility] [id number] [place] [address] May, [facility] [address] [facility] [id number] [place] [address] Jul, IMMUNIZATIONS No Known Immunizations SOCIAL HISTORY Never Assessed REASON FOR VISIT Repository Refill Request PLAN OF CARE VITAL SIGNS MEDICATIONS Medication Instructions Dosage Frequency Start Date End Date Duration Status Atorvastatin Calcium 10 mg Orally Once a day 1 tablet 24h May, 90 days Active Trazodone HCl 100 mg Orally at bedtime as needed for sleep 1-2 tabs Apr, 30 days Active Glimepiride 1 MG Orally Once a day 1 tablet with breakfast or the first main meal of the day 24h May, 90 days Active RESULTS No Results PROCEDURES [...]
--- OUTSIDE RECORDS SUMMARY | 2018-01-27 14:38 | XMS REPORT ---
Author Author WILKINSSREEKANTH Morales Organization [facility] Address [address] [place] [address] Care Team Providers Care Nut Grinder Name Role Phone SREEKANTH WILKINS Unavailable PROBLEMS Type Condition ICD9-CM Code [id number] Code Onset Dates Condition Status SNOMED Code Problem History of hypertension Z86.79 Active 549425166 Problem Elevated LDL cholesterol level E78.00 Active 762677006 Problem Personality disorder F60.9 Active 98067912 Problem Other chronic pain G89.29 Active 76770166 Problem Hypoglycemia E16.2 Active 584609179 Problem Acute seasonal allergic rhinitis, unspecified trigger J30.2 Active 476829605 Problem Type 2 diabetes mellitus without complication, without long-term current use of insulin E11.9 Active 118520895 Problem Primary insomnia F51.01 Active 8584400 Problem Acute non intractable tension-type headache G44.209 Active 299793827 Problem Generalized anxiety disorder F41.1 Active 36488250 Problem Bipolar disorder in remission F31.70 Active 82750241 Problem Family history of diabetes insipidus Z83.49 Active 964357087 Problem Abnormal CBC R79.89 Active 552858476 Problem Bipolar disorder, current episode mixed, mild F31.61 Active 132042474 Problem History of diabetes mellitus Z86.39 Active 613128719 Problem Overweight (BMI 25.0-29.9) E66.3 Active 978774896 Problem Sore throat J02.9 Active 073151614 ALLERGIES Substance Reaction Event Type Date Status MetFORMIN HCl ER nausea Drug Allergy Jun, Active Zyprexa rash Drug Allergy Jun, Active Cipro rash Drug Allergy Jun, Active ENCOUNTERS Encounter Location Date Diagnosis [facility] [address] [facility] [id number] [address] Jan, [facility] [address] [facility] [id number] [address] December, Dysuria R30.0 [place] [id number] [place] [address] 85645- 2548 December, [place] [id number] [place] [address] Nov, Bipolar disorder, current episode mixed, mild F31.61 and Personality disorder F60.9 [place] [address] [address]857- 5171 Nov, Elevated LDL cholesterol level E78.00 and Type 2 diabetes mellitus without complication, without long-term current use of insulin E11.9 [place] [id number] [place] [address] 76726- 2834 Nov, Elevated LDL cholesterol level E78.00 and Type 2 diabetes mellitus without complication, without long-term current use of insulin E11.9 [place] [id number] [place] [address] 46604- 0761 Nov, Other chronic pain G89.29 and Pain in left leg M79.605 [place] [id number] [place] [address] 55323- 4305 Nov, Acute pain of left knee M25.562 ; Syncope, unspecified syncope type R55 and Hypoglycemia E16.2 [place] [id number] [place] [address] 82304- 4351 Oct, Syncope, unspecified syncope type R55 [place] [id number] [place] [address] 95808- 4872 Oct, Bipolar disorder, current episode mixed, mild F31.61 and Personality disorder F60.9 [place] [id number] [place] [address] 50922- 4425 Oct, Lump of right breast N63.10 [place] [id number] [place] [address] 98822- 6241 Oct, Generalized anxiety disorder F41.1 [place] [address] 71381- 7694 Oct, Generalized anxiety disorder F41.1 ; Bipolar disorder in remission F31.70 ; Bipolar disorder, current episode mixed, mild F31.61 and Primary insomnia F51.01 [facility] [id number] [place] [address] 27805- 4650 Oct, Primary insomnia F51.01 and Lump of right breast N63.10 [facility] [id number] [place] [address] 31529- 7995 16 Oct, [address] [facility] [id number] [place] [address] 63669 -5650 14 Oct, 2017 Allergic conjunctivitis of both eyes H10.13 and Acute non intractable tension-type headache G44.209 [place] [id number] [place] [address] 83455- 6477 Oct, [place] [id number] [place] [address] 55707- 7886 Oct, Bipolar disorder, current episode mixed, mild F31.61 [place] [id number] [place] [address] 22870- 7680 Sep, Right flank pain R10.9 and Thoracic spine pain M54.6 [place] [id number] [place] [address] 60808- 2911 Sep, Generalized anxiety disorder F41.1 and Bipolar disorder, current episode mixed, mild F31.61 [facility] [address] [place] [address] 90954- 4421 Sep, [place] [id number] [place] [address] 91480- 9725 Sep, Generalized anxiety disorder F41.1 ; Bipolar disorder in remission F31.70 and Personality disorder F60.9 [facility] [id number] [place] [address] 51824- 8970 12 Sep, 2017 Spasm of thoracic back muscle M62.830 ; Type 2 diabetes mellitus without complication, without long-term current use of insulin E11.9 and Generalized anxiety disorder F41.[address] 46198- 1377 Sep, Bipolar disorder, current episode mixed, mild F31.61 and Personality disorder F60.[address] 34930- 1892 Aug, [place] [address] 89149- 4140 Aug, Bipolar disorder, current episode mixed, mild F31.61 and Personality disorder F60.[address] 69953- 1536 Aug, Type 2 diabetes mellitus without complication, without long- term current use of insulin E11.9 ; Generalized anxiety disorder F41.1 ; Bipolar disorder in remission F31.70 and Overweight (BMI 25.0-29.9) E66.[address] 53918- 4197 Aug, Type 2 diabetes mellitus without complication, without long- term current use of insulin E11.9 ; Elevated LDL cholesterol level E78.00 and Bipolar disorder, current episode mixed, mild F31.61 [facility] [address] [address] Jul, Vaginal discharge N89.8 ; Skin irritation R23.8 and Dysuria R30.0 [facility] [address] [place] [id number] [place] [address] 48437 -6105 Jul, Acute seasonal allergic rhinitis, unspecified trigger J30.2 and Chest pain, unspecified type R07.[address] 90897- 7015 Jun, Bipolar disorder, current episode mixed, mild F31.[address] 56309- 0841 Jun, [place] [id number] [place] [address] 27280- 3973 Jun, Bipolar disorder, current episode mixed, mild F31.61 and Personality disorder F60.9 [place] [address] 51774- 3710 Jun, [address] 61422- 2204 Jun, Type 2 diabetes mellitus without complication, without long- term current use of insulin E11.9 and Dysuria R30.[address] 46921- 3615 May, Bipolar disorder, current episode mixed, mild F31.61 ; Personality disorder F60.9 and Homeless Z59.[address] 85155- 2732 May, Type 2 diabetes mellitus without complication, without long- term current use of insulin E11.9 [place] [address] 63926- 5338 May, History of hypertension Z86.[address] 62424- 7091 May, [address] 11386- 1080 May, Type 2 diabetes mellitus without complication, without long- term current use of insulin E11.9 ; Elevated LDL cholesterol level E78.00 ; Low serum HDL R74.8 and Encounter for immunization Z23 [address] 20317- 4555 Apr, Encounter to establish care Z76.89 ; Abnormal CBC R79.89 ; History of hypertension Z86.79 ; Overweight (BMI 25.0-29.9) E66.3 ; Family history of diabetes insipidus Z83.49 ; Sore throat J02.9 and Tonsillitis with exudate J03.[address] [facility] [id number] [place] [address]- 1026 Apr, Bipolar disorder, current episode mixed, mild F31.61 [facility] [address] [facility] [id number] [place] [address] 2546 Mar, [facility] [id number] [place] [address] 7016 Mar, Bipolar disorder, current episode mixed, mild F31.61 [facility] [address] [facility] [id number] [place] [address] 2546 Mar, [facility] [id number] [place] [address], [place] [address]- 6386 Mar, Bipolar disorder in remission F31.70 [facility] [id number] [place] [address]- 1056 Jan, [facility] [address] [place] [address]- 8636 Jan, [facility] [id number] [place] [address] 254 Oct, Generalized anxiety disorder F41.1 and Bipolar disorder in remission F31.70 [facility] [address] [place] [address] 2546 Oct, [facility] [address] [place] [address] 2546 Oct, [facility] [id number] [place] [address] 2546 Oct, [facility] [id number] [place] [address] 2546 Oct, [facility] [id number] [place] [address] 2546 Jul, [facility] [id number] [place] [address] 2546 Jun, [facility] [address] [address]- 1152 May, 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 and Generalized anxiety disorder F41.1 [facility] [address] [place] [address] 63658- 6646 Jan, [facility] [id number] [place] [address] 977860- 5426 Jan, [facility] [id number] [place] [address] 106266- 8065 Jan, 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 and Generalized anxiety disorder F41.1 [facility] [id number] [place] [address] 12524- 9346 Sep, [facility] [address] [place] [address] 904097- 0580 Sep, [facility] [id number] [place] [address] 01585- 4410 Jul, 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 and Generalized anxiety disorder F41.1 [facility] [address] [place] [address] 953581- 8945 Jul, Otalgia of right ear H92.01 [facility] [address] [place] [address] 458371- 7985 Jun, [facility] [address] [place] [address] 077726- 4817 Mar, [facility] [address] [place] [address] 77953- 6126 Jan, [facility] [id number] [place] [address] 27292- 5486 Jan, [facility] [address] [place] [address] 40052- 4226 Jan, Bipolar 1 disorder, mixed, moderate 296.62 and SHERRY ( generalized anxiety disorder) 300.02 [facility] [id number] [place] [address]- 4503 Jan, [facility] [address] [id number] [place] [address]- 0920 Nov, [facility] [address] [id number] [place] [address]- 5699 Nov, [facility] [address] [id number] [place] [address]- 8868 Oct, [facility] [address] [id number] [place] [address]- 0819 Oct, [facility] [address] [id number] [place] [address]- 3871 Mar, [facility] [address] [id number] [place] [address]- 3993 Mar, [facility] [address] [id number] [place] [address]- 6557 Jan, [facility] [address] [id number] [place] [address]- 0886 Jan, [facility] [address] [id number] [place] [address]- 9130 December, [facility] [address] [id number] [place] [address]- 1558 December, [facility] [place] [facility] [address] [id number] [place] [address]- 8022 December, [facility] [address] [id number] [place] [address]- 1213 December, [facility] [place] [facility] [address] [id number] [place] [address] December, [facility] [place] [facility] [address] [id number] [place] [address]- 4875 December, [facility] [place] [facility] [address] [id number] [place] [address]- 3701 December, [facility] [place] [facility] [address] [id number] [place] [address]- 1701 December, [facility] [place] [facility] [address] [id number] [place] [address]- 4245 Nov, [facility] [place] [facility] [address] [id number] [place] [address]- 0517 Nov, [facility] [place] [facility] [address] [id number] [place] [address]- 5947 Oct, [facility] [place] [facility] [address] [id number] [place] [address]- 4102 Oct, [facility] [place] [facility] [address] [id number] [place] [address]- 5159 Oct, [facility] [place] [facility] [address] [id number] [place] [address]- 4185 Oct, [facility] [place] [facility] [address] [id number] [place] [address]- 3665 Oct, [facility] [place] [facility] [address] [id number] [place] [address]- 5531 Sep, [facility] [place] [facility] [address] [id number] [place] [address]- 4343 Sep, [facility] [place] [facility] [address] [id number] [place] [address]- 9744 Sep, [facility] [place] [facility] [address] [id number] [place] [address]- 4496 Sep, [facility] [place] [facility] [address] [id number] [place] [address]- 0509 Aug, [facility] [place] [facility] [address] [id number] [place] [address]- 2857 Aug, [facility] [place] [facility] [address] [id number] [place] [address]- 3102 Aug, [facility] [place] [facility] [address] [id number] [place] [address]- 6796 14 Aug, 2013 [facility] [address] [id number] [place] [address]- 7050 13 Aug, 2013 [facility] [place] [facility] [address] [id number] [place] 0433 16 Jul, 2013 [facility] [place] [facility] [address] [id number] [place] [address]- 4810 16 Jul, 2013 [facility] [place] [facility] [address] [id number] [place] [address]- 4276 Jul, [facility] [place] [facility] [address] [id number] [place] [address]- 9582 Jul, [facility] [place] [facility] [address] [id number] [place] [address]- 0910 Jun, [facility] [place] [facility] [address] [id number] [place] [address]- 5967 Jun, [facility] [place] [facility] [address] [id number] [place] [address]- 4073 May, [facility] [place] [facility] [address] [id number] [place] [address]- 7599 May, [facility] [place] [facility] [address] [id number] [place] [address]- 1033 May, [facility] [place] [facility] [address] [id number] [place] [address]- 6849 18 May, 2013 [facility] [place] [facility] [address] [id number], [place] [address]- 4825 15 May, 2013 [facility] [place] [facility] [address] [id number] [place] [address]- 0495 15 May, 2013 [facility] [place] [facility] [address] [id number] [place] [address]- 2832 09 May, 2013 [facility] [place] [facility] [address] [id number]- 1007 May, [facility] [place] [facility] [address] [id number] [place] [address]- 3633 May, [facility] [place] [facility] [address] [id number] [place] [address]- 9380 Apr, [facility] [place] [facility] [address] [id number] [place] [address]- 3895 Apr, [facility] [place] [facility] [address] [id number] [place] [address]- 1232 Mar, [facility] [place] [facility] [address] [id number] [place] [address]- 0225 Mar, [facility] [place] [facility] [address] [id number] [place] [address]- 4434 Mar, [facility] [place] [facility] [address] [id number] [place] [address]- 2091 Mar, [facility] [place] [facility] [address] [id number] [place] [address]- 2434 Mar, [facility] [place] [facility] [address] [id number] [place] [address]- 3192 Mar, [facility] [place] [facility] [address] [id number] [place] [address]- 6996 Mar, [facility] [place] [facility] [address] [id number] [place] [address]- 5783 Mar, [facility] [place] [facility] [address] [id number] [place] [address]- 8238 Mar, [facility] [place] [facility] [address] [id number] [place] [address]- 2070 Mar, [facility] [place] [facility] [address] [id number] [place] [address]- 4807 Mar, [facility] [place] [facility] [address] [id number] [place] [address]- 4697 Jan, [facility] [place] [facility] [address] [id number] [place] [address]- 7716 Jan, [facility] [address] [id number] [place] [address]- 5976 Jan, [facility] [address] [id number] [place] [address]- 3154 December, [facility] [address] [id number] [place] [address]- 5523 December, [facility] [address] [id number] [place] [address]- 1450 Nov, [facility] [address] [id number] [place] [address]- 8552 Nov, [facility] [address] [id number] [place] [address]- 9294 Oct, [facility] [address] [id number] [place] [address]- 9790 Oct, [facility] [place] [facility] [address] [id number] [place] [address]- 5522 Oct, [facility] [address] [id number] [place] [address]- 0388 20 Oct, 2012 [facility] [place] [facility] [address] [id number] [place] [address]- 0145 Oct, [facility] [address] [id number] [place] [address]- 6648 19 Oct, 2012 [facility] [place] [facility] [address] [id number] [place] [address]- 8119 17 Oct, 2012 [facility] [place] [facility] [address] [id number] [place] [address]- 4543 16 Oct, 2012 [facility] [place] [facility] [address] [id number] [place] [address]- 6706 14 Oct, 2012 [facility] [place] [facility] [address] [id number] [place] [address]- 6203 13 Oct, 2012 [facility] [place] [facility] [address] [id number] [place] [address] 2546 05 Oct, 2012 [facility] [address] [id number] [place] [address]- 0950 14 Sep, 2012 [facility] [address] [id number] [place] [address]- 2546 08 Sep, 2012 [facility] [address] [id number] [place] [address]- 0266 Aug, [facility] [address] [id number] [place] [address]- 2546 16 Aug, 2012 [facility] [address] [id number] [place] [address]- 4756 Aug, [facility] [address] [id number] [place] [address]- 3156 Aug, [facility] [address] [id number] [place] [address]- 7032 Aug, [facility] [address] [id number] [place] [address]- 305[address] Jul, [facility] [address] [id number] [place] [address]- 6255 Jul, [facility] [address] [id number] [place] [address]- 5462 19 Jul, 2012 [facility] [address] [id number] [place] [address]- 5472 19 Jul, 2012 [facility] [address] [id number] [place] [address] 2549 18 Jul, 2012 [facility] [address] [id number] [place] [address]- 6063 17 Jul, 2012 [facility] [address] [id number] [place] [address]- 1726 14 Jul, 2012 [facility] [address] [id number] [place] [address]- 5571 Jul, [facility] [place] [facility] [address] [id number] [place] [address]- 1835 Jul, [facility] [place] [facility] [address] [id number] [place] [address]- 3636 Jul, [facility] [place] [facility] [address] [id number] [place] [address]- 5757 Jul, [facility] [place] [facility] [address] [id number] [place] [address]- 3717 Jul, [facility] [place] [facility] [address] [id number] [place] [address] Jul, [facility] [place] [facility] [address] [id number] [place] [address] Jul, [facility] [place] [facility] [address] [id number] [place] [address] Jul, [facility] [place] [facility] [address] [id number] [place] [address] Jul, [facility] [place] [facility] [address] [id number] [place] [address] Jun, [facility] [place] [facility] [address] [id number] [place] [address] Jun, [facility] [place] [facility] [address] [id number] [place] [address] Jun, [facility] [place] [facility] [address] [id number] [address] Jun, [facility] [place] [facility] [address] [id number] [place] [address] Jun, [facility] [place] [facility] [address] [id number] [place] [address] Jun, [facility] [place] [facility] [address] [id number] [place] [address] Jun, [facility] [place] [facility] [address] [id number] [place] [address] Jun, [facility] [place] [facility] [address] [id number] [place] [address] Jun, [facility] [place] [facility] [address] [id number] [place] [address] May, [facility] [place] [facility] [address] [id number] [place] [address] Mar, [facility] [place] [facility] [address] [id number] [place] [address] Mar, [facility] [place] [facility] [address] [id number] [place] [address] Mar, [facility] [place] [facility] [address] [id number] [place] [address] Mar, [facility] [place] [facility] [address] [id number] [place] [address] Jan, [facility] [place] [facility] [address] [id number] [place] [address] Jan, [facility] [place] [facility] [address] [id number] [place] [address] Jan, [facility] [place] [facility] [address] [id number] [place] [address] Jan, [facility] [place] [facility] [address] [id number] [place] [address] Jan, [facility] [place] [facility] [address] [id number] [place] [address] Jan, [facility] [place] [facility] [address] [id number] [place] [address] December, [facility] [place] [facility] [address] [id number] [place] [address] December, [facility] [place] [facility] [address] [id number] [place] [address] 24 Nov, 2011 [facility] [place] [facility] [address] [id number] [place] [address] 24 Nov, 2011 [facility] [place] [facility] [address] [id number] [place] [address] 27 Oct, 2011 [facility] [place] [facility] [address] [id number] [place] [address] Oct, [facility] [place] [facility] [address] [id number] [place] [address] 08 Oct, 2011 [facility] [place] [facility] [address] [id number] [place] [address] Oct, [facility] [place] [facility] [address] [id number] [place] [address] Aug, [facility] [place] [facility] [address] [id number] [place] [address] 16 Aug, 2011 [facility] [place] [facility] [address] [id number] [place] [address] Jun, [facility] [place] [facility] [address] [id number] [place] [address] Jun, [facility] [place] [facility] [address] [id number] [place] [address] Jun, [facility] [facility] [address] [id number] [place] [address] Jun, [facility] [place] [facility] [address] [id number] [place] [address] Jun, [facility] [place] [facility] [address] [id number] [place] [address] May, [facility] [place] [facility] [address] [id number] [place] [address] May, [facility] [place] [facility] [address] [id number] [place] [address] May, [facility] [place] [facility] [address] [id number] [place] [address] May, [facility] [place] [facility] [address] [id number] [place] [address] 24 May, 2011 [facility] [place] [facility] [address] [id number] [address] May, [facility] [place] [facility] [address] [id number] [place] [address] 14 May, 2011 [facility] [place] [facility] [address] [id number] [address] Mar, [facility] [place] [facility] [address] [id number] [place] [address] May, [facility] [place] [facility] [address] [id number] [address] Jan, [facility] [place] [facility] [address] [id number][place] [address] Jul, [facility] [place] [facility] [address] [id number] [address] 24 Jun, 2009 [facility] [place] [facility] [address] [id number][place] [address] 16 Jun, 2009 [facility] [place] [facility] [address] [id number][place] [address] Jun, [facility] [place] [facility] [address] [id number][place] [address] Jun, [facility] [place] [facility] [address] [id number][place] [address] 04 Jun, 2009 [facility] [place] [facility] [address] [id number] [address] 27 May, 2009 [facility] [place] [facility] [address] [id number][place] [address] 15 May, 2009 [facility] [place] [facility] [address] [id number][place] [address] 15 May, 2009 [facility] [facility] [address] [facility] [id number] [place] [address] Jul, IMMUNIZATIONS No Known Immunizations SOCIAL HISTORY Never Assessed REASON FOR VISIT Diabetes----DBennettRN, urinary urgency and frequency x 2 weeks, pain with urination PLAN OF CARE Activity Details Follow Up 3 Months Reason:CHM VITAL SIGNS Height 62 in 2017-06-04 Weight 155 lbs 2017-06-04 Temperature 97.6 degrees Fahrenheit 2017-06-04 Heart Rate 80 bpm 2017-06-04 Respiratory Rate 20 2017-06-04 BMI 28.35 kg/m2 2017-06-04 Blood pressure systolic 108 mmHg 2017-06-04 Blood pressure diastolic 82 mmHg 2017-06-04 MEDICATIONS Medication Instructions Dosage Frequency Start Date End Date Duration Status Glucocard Expression Test 1 subcutaneously 2 times a day test 2 times per day 12h May, 12 months Active Aspir-81 81 MG Orally Once a day 1 tablet 24h Apr, Jan, 90 days Active Atorvastatin Calcium 10 mg Orally Once a day 1 tablet 24h May, 90 days Active Glimepiride 1 MG Orally Once a day 1 tablet with breakfast or the first main meal of the day 24h May, 90 days Active Lisinopril 5 mg Orally Once a day 1 tablet 24h May, 30 day(s) Active Trazodone HCl 100 MG Orally at bedtime as needed for sleep 1-2 tabs Apr, 30 days Active Abilify 5 MG Orally every night 1 tablet Apr, 30 days Active Melatonin 5 MG Orally take at bedtime 1 tablet Apr, 30 days Active RESULTS Name Result Date Reference Range A1C (IN HOUSE) 2017-06-04 A1C IN HOUSE 6.1 4.3 - 5.6 % Previous A1c Lot [id number] Exp date 02/18 UA LONG DIP (IN HOUSE) 2017-06-04 Lot # [id number] Exp date 10/31/17 Clarity clear Color yellow Odor none GLU negative CHUCK negative KET negative SG 1.020 BLO negative pH 6.5 Protein negative URO 0.2 NIT negative PRITESH negative Lot # Exp date PROCEDURES Procedure Date Ordered Result Body Site URINALYSIS, AUTO, W/O SCOPE Jun 04, 2017 GLYCATED HEMOGLOBIN TEST Jun 04, 2017 INSTRUCTIONS MEDICATIONS ADMINISTERED No Known Medications MEDICAL (GENERAL) HISTORY Type Description Date Medical History hypertension Medical History depression (hx of suicidal plan in 2012) Medical History insomnia Medical History bipolar disorder Surgical History Appendix Surgical History Tubal Ligation Hospitalization History Child /surgery Hospitalization History psych inpatient treatment, SI 2011
--- OUTSIDE RECORDS SUMMARY | 2018-01-27 14:39 | XMS REPORT ---
Author Author WILKINSSREEKANTH Morales Organization [facility] Address [address] [place] [address] Care Team Providers Care Afternoon Babysitter Name Role Phone SREEKANTH WILKINS Unavailable PROBLEMS Type Condition ICD9-CM Code SRN81-HT Code Onset Dates Condition Status SNOMED Code Problem History of hypertension Z86.79 Active 602486622 Problem Elevated LDL cholesterol level E78.00 Active 753470862 Problem Personality disorder F60.9 Active 30584232 Problem Other chronic pain G89.29 Active 73881283 Problem Hypoglycemia E16.2 Active 151679444 Problem Acute seasonal allergic rhinitis, unspecified trigger J30.2 Active 521939836 Problem Type 2 diabetes mellitus without complication, without long-term current use of insulin E11.9 Active 426193282 Problem Primary insomnia F51.01 Active 4550465 Problem Acute non intractable tension-type headache G44.209 Active 842285089 Problem Generalized anxiety disorder F41.1 Active 59584805 Problem Bipolar disorder in remission F31.70 Active 45368467 Problem Family history of diabetes insipidus Z83.49 Active 806379008 Problem Abnormal CBC R79.89 Active 672420396 Problem Bipolar disorder, current episode mixed, mild F31.61 Active 353885852 Problem History of diabetes mellitus Z86.39 Active 774703358 Problem Overweight (BMI 25.0-29.9) E66.3 Active 688061420 Problem Sore throat J02.9 Active 307548281 ALLERGIES No Information ENCOUNTERS Encounter Location Date Diagnosis [facility] [address] [facility] [id number] [address] Jan, [facility] [address] [address] Jan, [facility] [address] [id number] [address] December, [place] [place] [id number] [place] [address] 46178- 3062 December, Dysuria R30.0 [place] [address] [address]- [address] December, [place] [address] [address]- 4[address] Nov, Bipolar disorder, current episode mixed, mild F31.61 and Personality disorder F60.9 [place] [address] [id number] [place] [address] 37739- 5563 Nov, Elevated LDL cholesterol level E78.00 and Type 2 diabetes mellitus without complication, without long-term current use of insulin E11.9 [place] [id number] [place] [address] 99235- 1004 Nov, Elevated LDL cholesterol level E78.00 and Type 2 diabetes mellitus without complication, without long-term current use of insulin E11.9 [place] [id number] [place] [address] 43150- 2330 Nov, Other chronic pain G89.29 and Pain in left leg M79.605 [place] [id number] [place] [address] 06488- 2059 Nov, Acute pain of left knee M25.562 ; Syncope, unspecified syncope type R55 and Hypoglycemia E16.2 [place] [id number] [place] [address] 99901- 9881 Oct, Syncope, unspecified syncope type R55 [place] [id number] [place] [address] 27412- 5259 Oct, Bipolar disorder, current episode mixed, mild F31.61 and Personality disorder F60.9 [place] [id number] [place] [address] 05911- 0263 Oct, Lump of right breast N63.10 [place] [address] 60594- 9874 Oct, Generalized anxiety disorder F41.1 [facility] [id number] [place] [address] 04167- 5622 Oct, Generalized anxiety disorder F41.1 ; Bipolar disorder in remission F31.70 ; Bipolar disorder, current episode mixed, mild F31.61 and Primary insomnia F51.01 [facility] [id number] [place] [address] 91661- 2979 20 Oct, 2017 Primary insomnia F51.01 and Lump of right breast N63.10 [facility] [id number] [place] [address] 26251- 5665 16 Oct, 2017 Enteritis K52.9 [facility] [address] [address] 14 Oct, 2017 Allergic conjunctivitis of both eyes H10.13 and Acute non intractable tension-type headache G44.209 [place] [address] 88257- 2934 Oct, [place] [address] 59722- 4102 Oct, Bipolar disorder, current episode mixed, mild F31.61 [place] [address] 72338- 3326 22 Sep, 2017 Right flank pain R10.9 and Thoracic spine pain M54.6 [place] [id number] [place] [address] 09611- 1566 16 Sep, 2017 Generalized anxiety disorder F41.1 and Bipolar disorder, current episode mixed, mild F31.61 [place] [id number] [place] [address] 82819- 2048 Sep, [place] [address] 37430- 5536 14 Sep, 2017 Generalized anxiety disorder F41.1 ; Bipolar disorder in remission F31.70 and Personality disorder F60.9 [place] [address] [place] [address]- [address] 12 Sep, 2017 Spasm of thoracic back muscle M62.830 ; Type 2 diabetes mellitus without complication, without long-term current use of insulin E11.9 and Generalized anxiety disorder F41.1 [place] [address] 91574- 0061 12 Sep, 2017 Bipolar disorder, current episode mixed, mild F31.61 and Personality disorder F60.9 [place] [address] 64076- 4908 Aug, [place] [address] 06648- 9095 Aug, Bipolar disorder, current episode mixed, mild F31.61 and Personality disorder F60.9 [place] [address] 87036- 1183 Aug, Type 2 diabetes mellitus without complication, without long- term current use of insulin E11.9 ; Generalized anxiety disorder F41.1 ; Bipolar disorder in remission F31.70 and Overweight (BMI 25.0-29.9) E66.3 [place] [address] 77260- 7206 Aug, Type 2 diabetes mellitus without complication, without long- term current use of insulin E11.9 ; Elevated LDL cholesterol level E78.00 and Bipolar disorder, current episode mixed, mild F31.61 [facility] [address] [place] [address]368 -0139 Jul, Vaginal discharge N89.8 ; Skin irritation R23.8 and Dysuria R30.0 [facility] [address] [address] Jul, Acute seasonal allergic rhinitis, unspecified trigger J30.2 and Chest pain, unspecified type R07.[address] [address]50- 6133 Jun, Bipolar disorder, current episode mixed, mild F31.61 [place] [id number] [place] [address] Jun, [place] [address]- 4[address] Jun, Bipolar disorder, current episode mixed, mild F31.61 and Personality disorder F60.9 [place] [address]- 9437 Jun, [place] [address]8622- 0287 Jun, Type 2 diabetes mellitus without complication, without long- term current use of insulin E11.9 and Dysuria R30.0 [place] [address]682- 8353 May, Bipolar disorder, current episode mixed, mild F31.61 ; Personality disorder F60.9 and Homeless Z59.0 [place] [address]69- 5086 May, Type 2 diabetes mellitus without complication, without long- term current use of insulin E11.9 [place] [address]36312- 5767 May, History of hypertension Z86.79 [place] [address]36152- 7116 May, [place] [address]- 0445 May, Type 2 diabetes mellitus without complication, without long- term current use of insulin E11.9 ; Elevated LDL cholesterol level E78.00 ; Low serum HDL R74.8 and Encounter for immunization Z23 [place] [address]36362- 3471 Apr, Encounter to establish care Z76.89 ; Abnormal CBC R79.89 ; History of hypertension Z86.79 ; Overweight (BMI 25.0-29.9) E66.3 ; Family history of diabetes insipidus Z83.49 ; Sore throat J02.9 and Tonsillitis with exudate J03.90 [facility] [id number] [place] [address] 71527- 2046 Apr, Bipolar disorder, current episode mixed, mild F31.61 [facility] [id number] [place] [address] 02930- 1516 Mar, [facility] [id number] [place] [address] 10199 2546 Mar, Bipolar disorder, current episode mixed, mild F31.61 [facility] [id number] [place] [address] 44094- 1476 Mar, [facility] [id number] [place] [address] 16352- 6596 Mar, Bipolar disorder in remission F31.70 [facility] [id number] [place] [address] 51839- 2396 Jan, [facility] [id number] [place] [address] 97730- 5738 Jan, [facility] [id number] [place] [address] 35881- 5256 Oct, Generalized anxiety disorder F41.1 and Bipolar disorder in remission F31.70 [facility] [id number] [place] [address] 44878 2546 Oct, [facility] [id number] [place] [address] 56614 2546 Oct, [facility] [id number] [place] [address] 15541 2546 Oct, [facility] [id number] [place] [address] 06376 2546 Oct, [facility] [id number] [place] [address] 02431- 0246 Jul, [facility] [address] [id number] [address] 1916 Jun, [facility] [address] [place] [address] May, 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 and Generalized anxiety disorder F41.1 [facility] [address] [place] [address]- 7566 Jan, [facility] [id number] [place] [address] 65765- 8166 Jan, [facility] [id number] [place] [address] 70061- 0455 Jan, 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 and Generalized anxiety disorder F41.1 [facility] [id number] [place] [address] 84848- 4526 Sep, [facility] [id number] [place] [address] 17961- 4676 Sep, [facility] [id number] [place] [address] 74623- 6983 Jul, 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 and Generalized anxiety disorder F41.1 [facility] [address] [place] [address] Jul, Otalgia of right ear H92.01 [facility] [address] [address]- 3496 Jun, [facility] [address] [address] 2546 Mar, [facility] [address] [address]- 5746 Jan, [facility] [address] [place] 9626 Jan, [facility] [address] [place] 3246 Jan, Bipolar 1 disorder, mixed, moderate 296.62 and SHERRY ( generalized anxiety disorder) 300.02 [facility] [address] [place] [address]- 1546 Jan, [facility] [id number] [place] [address]- 4797 Nov, [facility] [address] [place] [address]- 7192 Nov, [facility] [address] [facility] [id number] [place] [address]- 1610 Oct, [facility] [id number] [place] [address], [place] [address]- 3274 Oct, [facility] [id number] [place] [address]- 9261 Mar, [facility] [address] [place] [address]- 5919 Mar, [facility] [address] [address]- 3410 Jan, [facility] [address] [place] [address]- 4372 Jan, [facility] [address] [place] [address]- 8230 December, [facility] [address] [place] [address]- 7199 December, [facility] [id number] [address]- 2674 December, [facility] [address] [place] [address]- 4918 December, [facility] [address] [place] [address]- 9065 December, [facility] [id number] 7302 December, [facility] [address] [id number] [place] [address]- 6227 December, [facility] [place] [facility] [address] [id number] [place] [address]- 6647 December, [facility] [place] [facility] [address] [id number] [place] [address]- 2053 Nov, [facility] [place] [facility] [address] [id number] [place] [address]- 3224 Nov, [facility] [place] [facility] [address] [id number] [place] [address]- 6101 Oct, [facility] [place] [facility] [address] [id number] [place] [address]- 5873 Oct, [facility] [place] [facility] [address] [id number] [place] [address]- 0392 Oct, [facility] [place] [facility] [address] [id number] [place] [address]- 0672 Oct, [facility] [place] [facility] [address] [id number] [place] [address]- 7250 Oct, [facility] [place] [facility] [address] [id number] [place] [address]- 6290 Sep, [facility] [place] [facility] [address] [id number] [place] [address]- 4803 Sep, [facility] [place] [facility] [address] [id number] [place] [address]- 5225 Sep, [facility] [place] [facility] [address] [id number] [place] [address]- 2986 Sep, [facility] [place] [facility] [address] [id number] [place] [address]- 5999 Aug, [facility] [place] [facility] [address] [id number] [place] [address]- 1296 Aug, [facility] [place] [facility] [address] [id number] [place] [address]- 7552 14 Aug, 2013 [facility] [place] [facility] [address] [id number] [place] [address]- 6870 14 Aug, 2013 [facility] [place] [facility] [address] [id number] [place] [address]- 3580 13 Aug, 2013 [facility] [place] [facility] [address] [id number] [place] [address]- 8164 16 Jul, 2013 [facility] [place] [facility] [address] [id number] [place] [address]- 9554 16 Jul, 2013 [facility] [place] [facility] [address] [id number] [place] [address]- 0505 Jul, [facility] [place] [facility] [address] [id number] [place] [address]- 4194 Jul, [facility] [place] [facility] [address] [id number] [place] [address]- 3070 Jun, [facility] [place] [facility] [address] [id number] [place] [address]- 1519 Jun, [facility] [place] [facility] [address] [id number] [place] [address]- 8097 May, [facility] [place] [facility] [address] [id number] [place] [address]- 3896 May, [facility] [place] [facility] [address] [id number] [place] [address]- 0994 18 May, 2013 [facility] [place] [facility] [address] [id number] [place] [address]- 9727 18 May, 2013 [facility] [place] [facility] [address] [id number] [place] [address]- 3767 15 May, 2013 [facility] [place] [facility] [address] [id number] [place] [address]- 0284 15 May, 2013 [facility] [place] [facility] [address] [id number] [place] [address]- 3700 09 May, 2013 [facility] [place] [facility] [address] [id number] [place] [address]- 6818 May, [facility] [place] [facility] [address] [id number] [place] [address]- 7568 May, [facility] [place] [facility] [address] [id number] [place] [address]- 6556 Apr, [facility] [place] [facility] [address] [id number] [place] [address]- 4071 Apr, [facility] [place] [facility] [address] [id number] [place] [address]- 8825 Mar, [facility] [place] [facility] [address] [id number] [place] [address]- 8425 Mar, [facility] [place] [facility] [address] [id number] [place] [address]- 7003 Mar, [facility] [place] [facility] [address] [id number] [place] [address]- 1618 Mar, [facility] [place] [facility] [address] [id number] [place] [address]- 7654 Mar, [facility] [place] [facility] [address] [id number] [place] [address]- 6180 Mar, [facility] [place] [facility] [address] [id number] [place] [address]- 7088 Mar, [facility] [place] [facility] [address] [id number] [place] [address]- 9483 Mar, [facility] [place] [facility] [address] [id number] [place] [address]- 5958 Mar, [facility] [place] [facility] [address] [id number] [place] [address]- 1161 Mar, [facility] [place] [facility] [address] [id number] [place] [address]- 3204 Mar, [facility] [place] [facility] [address] [id number] [place] [address]- 8373 Jan, [facility] [address] [id number] [place] [address]- 8279 Jan, [facility] [place] [facility] [address] [id number] [place] [address]- 2246 Jan, [facility] [address] [id number] [place] [address]- 3351 December, [facility] [place] [facility] [address] [id number] [place] [address]- 9823 December, [facility] [address] [id number] [place] [address]- 2185 Nov, [facility] [address] [id number] [place] [address]- 0467 Nov, [facility] [address] [id number] [place] [address]- 8378 Oct, [facility] [address] [id number] [place] [address]- 9302 Oct, [facility] [address] [id number] [place] [address]- 2699 Oct, [facility] [place] [facility] [address] [id number] [place] [address]- 9284 Oct, [facility] [place] [facility] [address] [id number] [place] [address]- 3185 19 Oct, 2012 [facility] [place] [facility] [address] [id number] [place] [address]- 4958 19 Oct, 2012 [facility] [place] [facility] [address] [id number] [place] [address]- 5678 17 Oct, 2012 [facility] [place] [facility] [address] [id number] [place] [address]- 1129 16 Oct, 2012 [facility] [place] [facility] [address] [id number] [place] [address]- 2198 14 Oct, 2012 [facility] [place] [facility] [address] [id number] [place] [address]- 3151 13 Oct, 2012 [facility] [address] [id number] [place] [address]- 1842 05 Oct, 2012 [facility] [place] [facility] [address] [id number] [place] [address]- 5077 14 Sep, 2012 [facility] [address] [id number] [place] [address]- 2356 08 Sep, 2012 [facility] [place] [facility] [address] [id number] [place] [address]- 4028 21 Aug, 2012 [facility] [address] [id number] [place] [address]- 6224 16 Aug, 2012 [facility] [place] [facility] [address] [id number] [place] [address]- 4411 Aug, [facility] [address] [id number] [place] [address]- 0137 09 Aug, 2012 [facility] [address] [id number] [place] [address]- 7708 Aug, [facility] [address] [id number] [place] [address]- 5698 21 Jul, 2012 [facility] [address] [id number] [place] [address]- 4253 21 Jul, 2012 [facility] [place] [facility] [address] [id number] [place] [address]- 5506 19 Jul, 2012 [facility] [place] [facility] [address] [id number] [place] [address]- 9382 19 Jul, 2012 [facility] [place] [facility] [address] [id number] [place] [address]- 0396 18 Jul, 2012 [facility] [place] [facility] [address] [id number] [place] [address]- 9784 17 Jul, 2012 [facility] [place] [facility] [address] [id number] [place] [address]- 8573 14 Jul, 2012 [facility] [place] [facility] [address] [id number] [place] [address]- 0125 Jul, [facility] [place] [facility] [address] [id number] [place] [address]- 6176 Jul, [facility] [place] [facility] [address] [id number] [place] [address]- 8905 Jul, [facility] [place] [facility] [address] [id number] [place] [address]- 7544 Jul, [facility] [place] [facility] [address] [id number] [place] [address]- 9142 Jul, [facility] [place] [facility] [address] [id number] [place] [address]- 8009 Jul, [facility] [address] [id number] [place] [address]- 2593 Jul, [facility] [place] [facility] [address] [id number] [place] [address]- 4194 Jul, [facility] [place] [facility] [address] [id number] [place] [address]- 2873 Jul, [facility] [place] [facility] [address] [id number] [place] [address] Jun, [facility] [place] [facility] [address] [id number] [place] [address] Jun, [facility] [place] [facility] [address] [id number] [place] [address] Jun, [facility] [place] [facility] [address] [id number] [place] [address] Jun, [facility] [place] [facility] [address] [id number] [place] [address] Jun, [facility] [place] [facility] [address] [id number] [place] [address] Jun, [facility] [place] [facility] [address] [id number] [place] [address] Jun, [facility] [place] [facility] [address] [id number] [place] [address] Jun, [facility] [place] [facility] [address] [id number] [place] [address] Jun, [facility] [place] [facility] [address] [id number] [place] [address] May, [facility] [place] [facility] [address] [id number] [place] [address] Mar, [facility] [place] [facility] [address] [id number] [place] [address] Mar, [facility] [place] [facility] [address] [id number] [place] [address] Mar, [facility] [place] [facility] [address] [id number] [place] [address] Mar, [facility] [place] [facility] [address] [id number] [place] [address] Jan, [facility] [place] [facility] [address] [id number] [place] [address] Jan, [facility] [place] [facility] [address] [id number] [place] [address] Jan, [facility] [place] [facility] [address] [id number] [place] [address] Jan, [facility] [place] [facility] [address] [id number] [place] [address] Jan, [facility] [place] [facility] [address] [id number] [place] [address] Jan, [facility] [place] [facility] [address] [id number] [place] [address] December, [facility] [place] [facility] [address] [id number] [place] [address] December, [facility] [place] [facility] [address] [id number] [place] [address] Nov, [facility] [address] [id number] [place] [address] Nov, [facility] [place] [facility] [address] [id number] [place] [address] Oct, [facility] [address] [id number] [place] [address] Oct, [facility] [place] [facility] [address] [id number] [place] [address] Oct, [facility] [address] [id number] [place] [address] Oct, [facility] [place] [facility] [address] [id number] [place] [address] Aug, [facility] [address] [id number] [place] [address] Aug, [facility] [address] [id number] [place] [address] Jun, [facility] [place] [facility] [address] [id number] [place] [address] Jun, [facility] [address] [id number] [place] [address] Jun, [facility] [place] [facility] [address] [id number] [place] [address] Jun, [facility] [place] [facility] [address] [id number] [place] [address] Jun, [facility] [place] [facility] [address] [id number] [place] [address] May, [facility] [place] [facility] [address] [id number] [place] [address] May, [facility] [place] [facility] [address] [id number] [place] [address] May, [facility] [place] [facility] [address] [id number] [place] [address] May, [facility] [place] [facility] [address] [id number] [place] [address] 24 May, 2011 [facility] [place] [facility] [address] [id number] [place] [address] May, [facility] [place] [facility] [address] [id number] [place] [address] 14 May, 2011 [facility] [place] [facility] [address] [id number] [place] [address] Mar, [facility] [place] [facility] [address] [id number] [place] [address] May, [facility] [place] [facility] [address] [id number] [place] [address] Jan, [facility] [place] [facility] [address] [id number] [place] [address] Jul, [facility] [place] [facility] [address] [id number] [place] [address] Jun, [facility] [place] [facility] [address] [id number] [place] [address] 16 Jun, 2009 [facility] [place] [facility] [address] [id number] [place] [address] Jun, [facility] [place] [facility] [address] [id number] [place] [address] Jun, [facility] [place] [facility] [address] [id number] [place] [address] Jun, [facility] [place] [facility] [address] [id number] [place] [address] 27 May, 2009 [facility] [place] [facility] [address] [id number] [place] [address] 15 May, 2009 [facility] [place] [facility] [address] [id number] [place] [address] May, [facility] [address] [facility] [id number] [place] [address] Jul, IMMUNIZATIONS No Known Immunizations SOCIAL HISTORY [...]
[2018-01-27] MEDS ORDERED: DOXY100T2 PO (17:15)
--- NOTE | 2018-01-27 17:16 | ED General ---
General Chief Complaint: Skin/Wound Problems Stated Complaint: RT SIDE RASH Nursing Triage Note: TO ED WITH RASH TO R SIDE X1 WEEK SAW [facility] AND WAS STARTED ON PREMETHRIM REPORTS NOT HELPING. REPORTS RASH IS ITCHY AND PAINFUL Nursing Sepsis Screen: No Definite Risk Source of Information: Patient, [employer] Exam Limitations: Language Barrier History of Present Illness Date Seen by Provider: Jan 27, 2018 Time Seen by Provider: 16:20 Initial Comments This 43-year-old woman presents to emergency room with pruritic rash primarily on her back and also affecting her neck and scattered over the rest of her torso. She has also had some headaches and night sweats. Symptoms have been present for about 5 days. She had been fishing prior to that and had multiple ticks on her. Allergies and Home Medications Allergies Coded Allergies: ciprofloxacin (Verified Allergy, 06/05/11) ciprofloxacin HCl (Verified Allergy, 06/05/11) olanzapine (Unverified Adverse Reaction, Mild, rash, 01/15/12) Home Medications Doxycycline Hyclate 100 Mg Tablet, 100 MG PO BID Prescribed by: KAVON MEYERS on 01/27/18 171 Fluoxetine Hcl 20 Mg Capsule, 1 EACH PO DAILY, (Reported) Ibuprofen 600 Mg Tablet, 600 MG PO Q6H PRN for PAIN Prescribed by: KAVON MEYERS on 11/12/13 015 Lamotrigine 25 Mg Tab, 25 MG PO DAILY, (Reported) Metformin Hcl 500 Mg Tab.sr.24h, 2 EACH PO BID WITH MEALS, (Reported) Polyethylene Glycol 17 Gm Pack, 17 GM PO DAILY PRN for CONSTIPATION 1-2 times daily FOR CONSTIPATION Prescribed by: KAVON MEYERS on 11/12/13151 Quetiapine Fumarate 25 Mg Tablet, 3 TAB PO HS, (Reported) Patient Home Medication List Home Medication List Reviewed: Yes Review of Systems Constitutional: see HPI EENTM: no symptoms reported Respiratory: no symptoms reported Cardiovascular: no symptoms reported Gastrointestinal: no symptoms reported Genitourinary: no symptoms reported : No Musculoskeletal: no symptoms reported Skin: see HPI Psychiatric/Neurological: See HPI Hematologic/Lymphatic: No Symptoms Reported Immunological/Allergic: no symptoms reported Past [id number]-[id number]-Wvosxg Hx Past Med/Social Hx: Reviewed Nursing Past Med/Soc Hx Patient Social History Alcohol Use: Denies Use Recreational Drug Use: No 2nd Hand Smoke Exposure: No Recent Foreign Travel: No Contact w/Someone Who Travel: No Recent Infectious Disease Expo: No Immunizations Up To Date Date of Influenza Vaccine: Jul 03, 2013 Past Medical History Surgeries: Yes Appendectomy, Tubal Ligation Respiratory: No Cardiac: No Neurological: No Reproductive Disorders: No (STATES MENSES EVERY MONTH , NONE IN SEP) Genitourinary: No Gastrointestinal: No Musculoskeletal: No Endocrine: No Diabetes, Non-Insulin dep HEENT: No Cancer: No Psychosocial: Yes Sleep Difficulties, Anxiety, Depression Physical Exam Vital Signs Vital Signs - First Documented 01/27/18 01/27/18 14:53 17:24 Temp 96.7 Pulse 86 Resp 18 B/P (MAP) 149/78 (101) Pulse Ox 98 O2 Delivery Room Air Capillary Refill : Less Than 3 Seconds General Appearance: No Apparent Distress, WD/WN HEENT: PERRL/EOMI, TMs Normal, Normal ENT Inspection, Pharynx Normal Neck: Other (maculopapular rash around the base of the neck) Respiratory: Lungs Clear, Normal Breath Sounds, No Accessory Muscle Use, No Respiratory Distress Cardiovascular: Regular Rate, Rhythm, No Edema, No Murmur Gastrointestinal: Normal Bowel Sounds, Non Tender, Soft Extremity: Normal Inspection, No Pedal Edema 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: Alert, Oriented x3, No Motor/Sensory Deficits, Normal Mood/Affect, sample display preparer II-XII Norm as Tested Skin: Normal Color, Warm/Dry Progress/Results/Core Measures Suspected Sepsis Recent Fever Within 48 Hours: No Infection Criteria Present: None New/Unexplained Altered Menta: No Sepsis Screen: No Definite Risk SIRS Temperature:96.7 Pulse: Respiratory Rate: 18 Blood Pressure 149 /78 Mean: 101 Results/Orders Vital Signs/I&O 01/27/18 01/27/18 14:53 17:24 Temp 96.7 96.7 Pulse 86 Resp 18 18 B/P (MAP) 149/78 (101) 149/78 (101) Pulse Ox 98 98 O2 Delivery Room Air Capillary Refill : Less Than 3 Seconds Blood Pressure Mean: 101 Progress Note : Progress Note Patient was offered a tick panel but declined due to cost. She would like empiric treatment for possible tickborne disease. Doxycycline was prescribed. The importance of completing the entire course of this medication was stressed. Patient was advised of possible skin hypersensitivity associated with doxycycline. The language line was used for interpretation. Departure Impression Primary Impression: Rash Additional Impressions: Tick bites Qualified Codes: W57.XXXA - Bitten or stung by nonvenomous insect and other nonvenomous arthropods, initial encounter Headache Qualified Codes: R51 - Headache Disposition: 01 HOME, SELF-CARE Condition: Stable Departure-Patient Inst. Decision time for Depature: 17:12 Referrals: ALINA MARIN DO (PCP) Primary Care Physician SREEKANTH WILKINS APRN (Family) Primary Care Physician Patient Instructions: [place] Spotted Fever , Tickborne Encephalitis Add. Discharge Instructions: Take all of your antibiotics (doxycycline) as prescribed. This medication may make your skin sensitive to the sun. Return to the emergency room if your symptoms worsen. If you are not improving within one week, please return to care. You may take Tylenol (acetaminophen) or ibuprofen for pain and fever. You may continue taking Benadryl (diphenhydramine) or other antihistamines for the itching. All discharge instructions reviewed with patient and/or family. Voiced understanding. Scripts Doxycycline Hyclate (Doxycycline Hyclate) 100 Mg Tablet 100 MG PO BID, #28 TAB Prov: KAVON NOE MD 01/27/18 KAVON NOE MD Jan 27, 2018 17:16
[2018-01-27 17:24] VITALS: BP 149/78
== END 2018-01-27 17:24 | disposition home or self-care (01) ==
LOC: EDUNIT# 14:23 → ER 14:25
DX: T14.8XXA Other injury of unspecified body region, initial encounter (principal); R21 Rash and other nonspecific skin eruption; R51 Headache; E11.9 Type 2 diabetes mellitus without complications; F41.9 Anxiety disorder, unspecified; G47.9 Sleep disorder, unspecified; F32.9 Major depressive disorder, single episode, unspecified; Z79.84 Long term (current) use of oral hypoglycemic drugs; Z88.1 Allergy status to other antibiotic agents; Z88.8 Allergy status to other drugs, medicaments and biological substances; Z90.49 Acquired absence of other specified parts of digestive tract; Z98.51 Tubal ligation status; W57.XXXA Bitten or stung by nonvenomous insect and other nonvenomous arthropods, initial encounter
CPT/HCPCS: 99282

== ENCOUNTER 2018-02-17 11:57 | Emergency (ER) | payer SELFPAY ==
[~2018-02-17] VITALS: Ht 165.1 cm; Wt 80.7 kg
[~2018-02-17 11:57] MED LIST changes: +DOXY100T2 PO
--- OUTSIDE RECORDS SUMMARY | 2018-02-17 12:09 | XMS REPORT ---
Author Author ALEXANDRU ARACELIS Organization [facility] Address [address] [place] [address] Care Team Providers Care Caser Up Name Role Phone JASWANTMARCELLUS ARACELIS Unavailable PROBLEMS Type Condition ICD9-CM Code QEX82-YX Code Onset Dates Condition Status SNOMED Code Problem History of hypertension Z86.79 Active 089895142 Problem Elevated LDL cholesterol level E78.00 Active 051618177 Problem Personality disorder F60.9 Active 97104733 Problem Other chronic pain G89.29 Active 99499602 Problem Hypoglycemia E16.2 Active 042940361 Problem Acute seasonal allergic rhinitis, unspecified trigger J30.2 Active 130192690 Problem Type 2 diabetes mellitus without complication, without long-term current use of insulin E11.9 Active 816281195 Problem Primary insomnia F51.01 Active 7510052 Problem Acute non intractable tension-type headache G44.209 Active 400638982 Problem Generalized anxiety disorder F41.1 Active 62841317 Problem Bipolar disorder in remission F31.70 Active 86972707 Problem Family history of diabetes insipidus Z83.49 Active 520340237 Problem Abnormal CBC R79.89 Active 871036797 Problem Bipolar disorder, current episode mixed, mild F31.61 Active 151548194 Problem History of diabetes mellitus Z86.39 Active 463566511 Problem Overweight (BMI 25.0-29.9) E66.3 Active 881432121 Problem Sore throat J02.9 Active 453204721 ALLERGIES No Information ENCOUNTERS Encounter Location Date Diagnosis [facility] [id number] [address] Jan, Scabies B86 [facility] [id number] [address] Jan, Bipolar disorder, current episode mixed, mild F31.61 and Personality disorder F60.9 [facility] [id number] [place] [address] 61806- 0622 Jan, Cyst of ovary, unspecified laterality N83.209 [place] [address] [place] [address]- 1707 December, Cyst of ovary, unspecified laterality N83.209 [place] [id number] [place] [address] 14950- 9679 December, [place] [address] [address]77- 9408 December, Dysuria R30.[address] 977154- 6777 December, [place] [id number] [place] [address] 74954- 1979 Nov, Bipolar disorder, current episode mixed, mild F31.61 and Personality disorder F60.9 [place] [address] 75435- 2321 Nov, Elevated LDL cholesterol level E78.00 and Type 2 diabetes mellitus without complication, without long-term current use of insulin E11.9 [place] [id number] [place] [address] 98903- 3903 Nov, Elevated LDL cholesterol level E78.00 and Type 2 diabetes mellitus without complication, without long-term current use of insulin E11.9 [place] [id number] [place] [address] 88020- 6002 Nov, Other chronic pain G89.29 and Pain in left leg M79.605 [place] [id number] [place] [address] 60511- 5668 Nov, Acute pain of left knee M25.562 ; Syncope, unspecified syncope type R55 and Hypoglycemia E16.2 [place] [address] [place] [address] 13774- 4447 Oct, Syncope, unspecified syncope type R55 [place] [id number] [place] [address] 59060- 8437 27 Oct, 2017 Bipolar disorder, current episode mixed, mild F31.61 and Personality disorder F60.9 [place] [address] [place] [id number]- 237 23 Oct, 2017 Lump of right breast N63.10 [place] [id number] [place] [address] 54432- 1214 Oct, Generalized anxiety disorder F41.1 [place] [address] 17997- 0633 Oct, Generalized anxiety disorder F41.1 ; Bipolar disorder in remission F31.70 ; Bipolar disorder, current episode mixed, mild F31.61 and Primary insomnia F51.01 [place] [id number] [place] [address] 33649- 3671 Oct, Primary insomnia F51.01 and Lump of right breast N63.10 [place] [address] 43093- 0146 16 Oct, 2017 Enteritis K52.9 [facility] [place] [address] [address] -1049 14 Oct, 2017 Allergic conjunctivitis of both eyes H10.13 and Acute non intractable tension-type headache G44.209 [place] [id number] [place] [address] 92283- 0799 Oct, [place] [address] 33020- 0044 Oct, Bipolar disorder, current episode mixed, mild F31.61 [place] [address] 71656- 6036 22 Sep, 2017 Right flank pain R10.9 and Thoracic spine pain M54.6 [place] [id number] [place] [address] 05130- 7770 16 Sep, 2017 Generalized anxiety disorder F41.1 and Bipolar disorder, current episode mixed, mild F31.61 [place] [id number] [place] [address] 20577- 5291 14 Sep, 2017 [place] [address] 05383- 1326 14 Sep, 2017 Generalized anxiety disorder F41.1 ; Bipolar disorder in remission F31.70 and Personality disorder F60.9 [place] [address] 79544- 1316 12 Sep, 2017 Spasm of thoracic back muscle M62.830 ; Type 2 diabetes mellitus without complication, without long-term current use of insulin E11.9 and Generalized anxiety disorder F41.1 [place] [id number] [place] [address] 35632- 7815 12 Sep, 2017 Bipolar disorder, current episode mixed, mild F31.61 and Personality disorder F60.9 [place] [address] 64042- 0934 Aug, [place] [id number] [place] [address] 11550- 4314 Aug, Bipolar disorder, current episode mixed, mild F31.61 and Personality disorder F60.9 [place] [id number] [place] [address] 60436- 5338 Aug, Type 2 diabetes mellitus without complication, without long- term current use of insulin E11.9 ; Generalized anxiety disorder F41.1 ; Bipolar disorder in remission F31.70 and Overweight (BMI 25.0-29.9) E66.3 [place] [id number] [place] [address] 43929- 2471 Aug, Type 2 diabetes mellitus without complication, without long- term current use of insulin E11.9 ; Elevated LDL cholesterol level E78.00 and Bipolar disorder, current episode mixed, mild F31.61 [facility] [address] [place] [address] 55452 -9166 Jul, Vaginal discharge N89.8 ; Skin irritation R23.8 and Dysuria R30.0 [facility] [id number] [place] [address] 65540 -4169 Jul, Acute seasonal allergic rhinitis, unspecified trigger J30.2 and Chest pain, unspecified type R07.9 [facility] [id number] [place] [address] 73357- 3001 Jun, Bipolar disorder, current episode mixed, mild F31.61 [facility] [address] 40706- 8533 Jun, [place] [address] 794701- 0304 Jun, Bipolar disorder, current episode mixed, mild F31.61 and Personality disorder F60.9 [facility] [address] 44695- 3354 Jun, [facility] [address] 73257- 6362 Jun, Type 2 diabetes mellitus without complication, without long- term current use of insulin E11.9 and Dysuria R30.0 [place] [id number] [place] [address] 53117- 3017 May, Bipolar disorder, current episode mixed, mild F31.61 ; Personality disorder F60.9 and Homeless Z59.0 [facility] [id number] [place] [address] 33618- 4890 May, Type 2 diabetes mellitus without complication, without long- term current use of insulin E11.9 [place] [id number] [place] [address] 92126- 8355 May, History of hypertension Z86.79 [place] [id number] [place] [address] 98424- 7504 May, [facility] [id number] [place] [address] 38345- 8575 May, Type 2 diabetes mellitus without complication, without long- term current use of insulin E11.9 ; Elevated LDL cholesterol level E78.00 ; Low serum HDL R74.8 and Encounter for immunization Z23 [place] [address] 69718- 3512 26 Apr, 2017 Encounter to establish care Z76.89 ; Abnormal CBC R79.89 ; History of hypertension Z86.79 ; Overweight (BMI 25.0-29.9) E66.3 ; Family history of diabetes insipidus Z83.49 ; Sore throat J02.9 and Tonsillitis with exudate J03.90 [place] [address] 77341- 1891 Apr, Bipolar disorder, current episode mixed, mild F31.61 [place] [address] 77866- 2171 Mar, [place] [address] 76511- 0822 Mar, Bipolar disorder, current episode mixed, mild F31.61 [place] [address] 14002- 1928 Mar, [place] [id number] [place] [address] 48689- 2145 Mar, Bipolar disorder in remission F31.70 [place] [id number] [place] [address] 80066- 3125 Jan, [place] [id number] [place] [address] 19504- 3566 Jan, [place] [id number] [place] [address] 52307- 3127 Oct, Generalized anxiety disorder F41.1 and Bipolar disorder in remission F31.70 [place] [id number] [place] [address] 67239- 7737 Oct, [place] [address] 15251- 1922 Oct, [facility] [address] [address]- 6508 Oct, [facility] [id number] [place] [address] 42868- 3706 Oct, [facility] [address] [address]- 5427 Jul, [facility] [id number] [place] [address] 10365- 2376 Jun, [facility] [address] [place] [address] 51856- 7742 May, 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 and Generalized anxiety disorder F41.1 [facility] [address] [place] [address] 42439- 2156 Jan, [facility] [id number] [place] [address] 65840- 1340 Jan, [facility] [address] [place] [address] 25984- 3045 Jan, 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 and Generalized anxiety disorder F41.1 [facility] [address] [place] [address] 99449- 6154 Sep, [facility] [address] [address]- 4348 Sep, [facility] [address] [address] 6199 Jul, 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 and Generalized anxiety disorder F41.1 [facility] [address] [place] [address] 862747- 2165 Jul, Otalgia of right ear H92.01 [facility] [address] [address]- 2016 Jun, [facility] [id number] [place] [address] 16715- 3913 Mar, [facility] [id number] [address]- 2268 Jan, [facility] [id number] 7535 Jan, [facility] [address] 8621 Jan, Bipolar 1 disorder, mixed, moderate 296.62 and HSERRY ( generalized anxiety disorder) 300.02 [facility] [address] [facility] [id number] [place] 9250 Jan, [facility] [id number], [place] [address]- 3841 Nov, [facility] [address], [place] [address]- 1765 Nov, [facility] [id number] [address]- 5420 Oct, [facility] [id number], [place] [address]- 6970 Oct, [facility] [id number] [address]- 5617 Mar, [facility] [address], [place] [address]- 6974 Mar, [facility] [id number], [place] [address]- 2333 Jan, [facility] [address] [facility] [id number] [address]- 8245 Jan, [facility] [id number] 4006 December, [facility] [id number] 3982 December, [facility] [address], [place] [address]- 0365 December, [facility] [place] [facility] [address] [id number] [place] [address]- 2029 December, [facility] [place] [facility] [address] [id number] [place] [address]- 1697 December, [facility] [place] [facility] [address] [id number] [place] [address]- 8207 December, [facility] [place] [facility] [address] [id number] [place] [address]- 0093 December, [facility] [place] [facility] [address] [id number] [place] [address]- 2901 December, [facility] [place] [facility] [address] [id number] [place] [address]- 5712 Nov, [facility] [place] [facility] [address] [id number] [place] [address]- 5138 Nov, [facility] [place] [facility] [address] [id number] [place] [address]- 0041 Oct, [facility] [place] [facility] [address] [id number] [place] [address]- 3244 Oct, [facility] [place] [facility] [address] [id number] [place] [address]- 4613 Oct, [facility] [place] [facility] [address] [id number] [place] [address]- 9516 Oct, [facility] [place] [facility] [address] [id number] [place] [address]- 8006 Oct, [facility] [place] [facility] [address] [id number] [place] [address]- 5801 Sep, [facility] [place] [facility] [address] [id number] [place] [address]- 1836 Sep, [facility] [place] [facility] [address] [id number] [place] [address]- 9370 Sep, [facility] [place] [facility] [address] [id number] [place] [address]- 6313 14 Sep, 2013 [facility] [place] [facility] [address] [id number] [place] [address]- 4766 Aug, [facility] [place] [facility] [address] [id number] [place] [address]- 3024 Aug, [facility] [place] [facility] [address] [id number] [place] [address]- 4408 Aug, [facility] [place] [facility] [address] [id number] [place] [address]- 9470 Aug, [facility] [place] [facility] [address] [id number] [place] [address]- 8045 Aug, [facility] [place] [facility] [address] [id number] [place] [address]- 0066 Jul, [facility] [place] [facility] [address] [id number] [place] [address]- 5549 Jul, [facility] [place] [facility] [address] [id number] [place] [address]- 2184 Jul, [facility] [place] [facility] [address] [id number] [place] [address]- 2641 Jul, [facility] [place] [facility] [address] [id number] [place] [address]- 3518 Jun, [facility] [place] [facility] [address] [id number] [place] [address]- 9492 Jun, [facility] [place] [facility] [address] [id number] [place] [address]- 9002 May, [facility] [place] [facility] [address] [id number] [place] [address]- 5587 May, [facility] [place] [facility] [address] [id number] [place] [address]- 7862 May, [facility] [place] [facility] [address] [id number] [place] [address]- 3731 18 May, 2013 [facility] [place] [facility] [address] [id number] [place] [address]- 9037 15 May, 2013 [facility] [place] [facility] [address] [id number] [place] 6375 15 May, 2013 [facility] [place] [facility] [address] [id number] [place] [address]- 8922 May, [facility] [place] [facility] [address] [id number] [place] [address]- 3515 May, [facility] [place] [facility] [address] [id number] [place] [address]- 1498 May, [facility] [place] [facility] [address] [id number] [place] [address]- 3321 Apr, [facility] [place] [facility] [address] [id number] [place] [address]- 7924 Apr, [facility] [place] [facility] [address] [id number] [place] [address]- 3390 Mar, [facility] [place] [facility] [address] [id number] [place] [address]- 5988 Mar, [facility] [place] [facility] [address] [id number] [place] [address]- 3901 Mar, [facility] [place] [facility] [address] [id number] [place] [address]- 3469 Mar, [facility] [place] [facility] [address] [id number], [place] [address]- 0471 Mar, [facility] [place] [facility] [address] [id number] [place] [address]- 4707 Mar, [facility] [place] [facility] [address] [id number] [place] [address]- 6367 Mar, [facility] [place] [facility] [address] [id number] [place] [address]- 4402 Mar, [facility] [place] [facility] [address] [id number] [place] [address]- 8141 Mar, [facility] [address] [id number] [place] [address]- 6109 Mar, [facility] [address] [id number] [place] [address]- 2957 Mar, [facility] [address] [id number] [place] [address]- 2933 Jan, [facility] [address] [id number] [place] [address]- 2913 Jan, [facility] [address] [id number] [place] [address]- 6302 Jan, [facility] [address] [id number] [place] [address]- 5230 December, [facility] [address] [id number] [place] [address]- 5643 December, [facility] [address] [id number] [place] [address]- 5397 Nov, [facility] [address] [id number] [place] [address]- 0009 Nov, [facility] [address] [id number] [place] [address]- 2892 Oct, [facility] [address] [id number] [place] [address]- 1394 Oct, [facility] [address] [id number] [place] [address]- 6741 Oct, [facility] [address] [id number] [place] [address]- 3302 Oct, [facility] [address] [id number] [place] [address]- 6435 Oct, [facility] [address] [id number] [place] [address]- 2993 Oct, [facility] [address] [id number] [place] [address]- 6103 17 Oct, 2012 [facility] [place] [facility] [address] [id number] [place] [address]- 1767 16 Oct, 2012 [facility] [place] [facility] [address] [id number] [place] [address]- 8121 14 Oct, 2012 [facility] [place] [facility] [address] [id number] [place] [address]- 4695 13 Oct, 2012 [facility] [address] [id number] [place] [address]- 7509 05 Oct, 2012 [facility] [place] [facility] [address] [id number] [place] [address]- 0249 14 Sep, 2012 [facility] [address] [id number] [place] [address]- 6907 08 Sep, 2012 [facility] [address] [id number] [place] [address]- 3494 Aug, [facility] [place] [facility] [address] [id number] [place] [address]- 1746 Aug, [facility] [address] [id number] [place] [address]- 4773 Aug, [facility] [place] [facility] [address] [id number] [place] [address]- 4084 Aug, [facility] [place] [facility] [address] [id number] [address]- 7460 Aug, [facility] [place] [facility] [address] [id number] [place] [address]- 0976 Jul, [facility] [place] [facility] [address] [id number] [place] [address]- 6946 Jul, [facility] [place] [facility] [address] [id number] [place] [address]- 9250 Jul, [facility] [place] [facility] [address] [id number], [place] [address]- 4875 19 Jul, 2012 [facility] [address] [id number] [place] [address]- 0712 18 Jul, 2012 [facility] [place] [facility] [address] [id number] [place] [address]- 4826 17 Jul, 2012 [facility] [place] [facility] [address] [facility] [id number] [place] [address] 14 Jul, 2012 [facility] [place] [facility] [address] [id number] [place] [address] 14 Jul, 2012 [facility] [place] [facility] [address] [id number] [place] [address] 06 Jul, 2012 [facility] [place] [facility] [address] [id number] [place] [address] Jul, [facility] [id number] [place] [address] 05 Jul, 2012 [facility] [place] [facility] [address] [id number] [place] [address] Jul, [facility] [place] [facility] [address] [id number] [place] [address] Jul, [facility] [place] [facility] [address] [facility] [id number] [place] [address] Jul, [facility] [place] [facility] [address] [facility] [id number] [place] [address] Jul, [facility] [place] [facility] [address] [id number] [address] Jul, [facility] [place] [facility] [address] [id number] [place] [address] Jun, [facility] [place] [facility] [address] [facility] [id number] [place] [address] Jun, [facility] [place] [facility] [address] [id number] [place] [address] Jun, [facility] [place] [facility] [address] [id number] [place] [address] Jun, [facility] [place] [facility] [address] [id number] [place] [address]- [address] Jun, [facility] [place] [facility] [address] [id number] [place] [address] Jun, [facility] [place] [facility] [address] [id number] [place] [address] Jun, [facility] [place] [facility] [address] [id number] [place] [address]- [address] Jun, [facility] [place] [facility] [address] [id number] [place] [address] Jun, [facility] [place] [facility] [address] [id number] [place] [address] May, [facility] [place] [facility] [address] [id number] [place] [address] Mar, [facility] [place] [facility] [address] [id number] [place] [address] Mar, [facility] [place] [facility] [address] [id number] [place] [address]- [address] Mar, [facility] [place] [facility] [address] [id number] [place] [address] Mar, [facility] [place] [facility] [address] [id number] [place] [address] Jan, [facility] [place] [facility] [address] [id number] [place] [address] Jan, [facility] [place] [facility] [address] [id number] [place] [address] Jan, [facility] [place] [facility] [address] [id number] [place] [address] Jan, [facility] [place] [facility] [address] [id number] [place] [address] Jan, [facility] [place] [facility] [address] [id number] [place] [address] Jan, [facility] [place] [facility] [address] [id number] [place] [address] December, [facility] [place] [facility] [address] [id number] [place] [address] December, [facility] [place] [facility] [address] [id number] [place] [address] Nov, [facility] [place] [facility] [address] [id number] [place] [address] Nov, [facility] [place] [facility] [address] [id number] [place] [address] Oct, [facility] [place] [facility] [address] [id number] [place] [address] Oct, [facility] [place] [facility] [address] [id number] [place] [place] [address] Oct, [facility] [place] [facility] [address] [id number] [place] [address] Oct, [facility] [place] [facility] [address] [id number] [place] [address] Aug, [facility] [place] [facility] [address] [id number], [place] [address] Aug, [facility] [place] [facility] [address] [id number], [place] [address] Jun, [facility] [place] [facility] [address] [id number] [place] [address] Jun, [facility] [place] [facility] [address] [id number] [place] [address] Jun, [facility] [place] [facility] [address] [id number] [place] [address] Jun, [facility] [place] [facility] [address] [id number] [place] [address] Jun, [facility] [place] [facility] [address] [id number] [place] [address] May, [facility] [place] [facility] [address] [id number] [place] [address] May, [facility] [place] [facility] [address] [id number] [place] [address] May, [facility] [place] [facility] [address] [id number] [place] [address] May, [facility] [place] [facility] [address] [id number] [place] [address] May, [facility] [place] [facility] [address] [id number] [place] [address] May, [facility] [place] [facility] [address] [id number] [place] [address] May, [facility] [place] [facility] [address] [id number] [place] [address] Mar, [facility] [place] [facility] [address] [id number] [place] [address] May, [facility] [place] [facility] [address] [id number] [place] [address] Jan, [facility] [place] [facility] [address] [id number] [place] [address] Jul, [facility] [place] [facility] [address] [id number] [place] [address] Jun, [facility] [place] [facility] [address] [id number] [place] [address] Jun, [facility] [place] [facility] [address] [id number] [place] [address] Jun, [facility] [place] [facility] [address] [id number] [place] [address] Jun, [facility] [address] [facility] [id number], [place] [address] Jun, [facility] [address] [id number] [address] May, [facility] [id number] [address] May, [facility] [id number], [place] [address] May, [facility] [address] [id number] [address] Jul, IMMUNIZATIONS No Known Immunizations SOCIAL HISTORY Never Assessed REASON FOR VISIT Requests return call PLAN OF CARE VITAL SIGNS MEDICATIONS Medication Instructions Dosage Frequency Start Date End Date Duration Status Melatonin 5 mg Orally take at bedtime 1 tablet 25 Apr, 2017 30 days Active RESULTS No Results PROCEDURES No [...]
--- OUTSIDE RECORDS SUMMARY | 2018-02-17 12:09 | XMS REPORT ---
Author Author CARMITA PAREKH [facility] Address [address] [place] [address] Care Team Providers Care [employer] Rep[employer]r Name Role Phone CARMITA PAREKH Unavailable PROBLEMS Type Condition ICD9-CM Code [id number] Code Onset Dates Condition Status SNOMED Code Problem History of hypertension Z86.79 Active 554207204 Problem Elevated LDL cholesterol level E78.00 Active 196337110 Problem Personality disorder F60.9 Active 52183865 Problem Other chronic pain G89.29 Active 00575743 Problem Hypoglycemia E16.2 Active 960248891 Problem Acute seasonal allergic rhinitis, unspecified trigger J30.2 Active 549349120 Problem Type 2 diabetes mellitus without complication, without long-term current use of insulin E11.9 Active 032851648 Problem Primary insomnia F51.01 Active 0442426 Problem Acute non intractable tension-type headache G44.209 Active 258225181 Problem Generalized anxiety disorder F41.1 Active 10565880 Problem Bipolar disorder in remission F31.70 Active 27874855 Problem Family history of diabetes insipidus Z83.49 Active 296049757 Problem Abnormal CBC R79.89 Active 025408872 Problem Bipolar disorder, current episode mixed, mild F31.61 Active 176255564 Problem History of diabetes mellitus Z86.39 Active 517781170 Problem Overweight (BMI 25.0-29.9) E66.3 Active 490039700 Problem Sore throat J02.9 Active 479843406 ALLERGIES Substance Reaction Event Type Date Status MetFORMIN HCl ER nausea Drug Allergy Oct, Active Zyprexa rash Drug Allergy Oct, Active Cipro rash Drug Allergy Oct, Active ENCOUNTERS Encounter Location Date Diagnosis [facility] [address] [facility] [id number] [address] Jan, [facility] [address] [facility] [id number] [address] Jan, Scabies B[address] [place] [id number] [place] [address] 48207- 2112 Jan, Bipolar disorder, current episode mixed, mild F31.61 and Personality disorder F60.9 [place] [id number] [place] [address] 02428- 2885 Jan, Cyst of ovary, unspecified laterality N83.209 [place] [address] [place] [id number]- 3123 December, Cyst of ovary, unspecified laterality N83.209 [place] [address] [address]- 6434 December, [place] [address] 03311- 0237 December, Dysuria R30.0 [place] [address] 57400- 2909 December, [place] [id number] [place] [address] 30903- 4300 Nov, Bipolar disorder, current episode mixed, mild F31.61 and Personality disorder F60.9 [place] [id number] [place] [address] 84514- 9364 Nov, Elevated LDL cholesterol level E78.00 and Type 2 diabetes mellitus without complication, without long-term current use of insulin E11.9 [place] [id number] [place] [address] 91242- 3292 Nov, Elevated LDL cholesterol level E78.00 and Type 2 diabetes mellitus without complication, without long-term current use of insulin E11.9 [place] [address] 84907- 8408 Nov, Other chronic pain G89.29 and Pain in left leg M79.605 [place] [id number] [place] [address] 98935- 0464 Nov, Acute pain of left knee M25.562 ; Syncope, unspecified syncope type R55 and Hypoglycemia E16.2 [facility] [id number] [place] [address] 31661- 5347 30 Oct, 2017 Syncope, unspecified syncope type R55 [facility] [id number] [place] [address] 93674- 3566 Oct, Bipolar disorder, current episode mixed, mild F31.61 and Personality disorder F60.9 [place] [address] 557784- 8751 Oct, Lump of right breast N63.10 [place] [address] 275673- 6064 Oct, Generalized anxiety disorder F41.1 [place] [address] 83824- 9695 Oct, Generalized anxiety disorder F41.1 ; Bipolar disorder in remission F31.70 ; Bipolar disorder, current episode mixed, mild F31.61 and Primary insomnia F51.01 [place] [id number] [place] [address] 59442- 3956 Oct, Primary insomnia F51.01 and Lump of right breast N63.10 [facility] [id number] [place] [address] 76097- 3222 16 Oct, 2017 Enteritis K52.9 [facility] [id number] [place] [address] 87315 -1051 14 Oct, 2017 Allergic conjunctivitis of both eyes H10.13 and Acute non intractable tension-type headache G44.209 [place] [id number] [place] [address] 97244- 5272 14 Oct, 2017 [facility] [address] 30804- 4092 Oct, Bipolar disorder, current episode mixed, mild F31.61 [place] [id number] [place] [address] 20414- 0106 Sep, Right flank pain R10.9 and Thoracic spine pain M54.6 [place] [id number] [place] [address] 03660- 3131 16 Sep, 2017 Generalized anxiety disorder F41.1 and Bipolar disorder, current episode mixed, mild F31.61 [place] [id number] [place] [address] 50847- 3985 14 Sep, 2017 [place] [address] 35508- 1782 Sep, Generalized anxiety disorder F41.1 ; Bipolar disorder in remission F31.70 and Personality disorder F60.9 [place] [address] 16165- 4783 12 Sep, 2017 Spasm of thoracic back muscle M62.830 ; Type 2 diabetes mellitus without complication, without long-term current use of insulin E11.9 and Generalized anxiety disorder F41.1 [place] [address] 17368- 6576 Sep, Bipolar disorder, current episode mixed, mild F31.61 and Personality disorder F60.9 [place] [id number] [place] [address] 77003- 6042 Aug, [place] [id number] [place] [address] 01771- 8812 Aug, Bipolar disorder, current episode mixed, mild F31.61 and Personality disorder F60.9 [place] [id number] [place] [address] 54835- 3518 Aug, Type 2 diabetes mellitus without complication, without long- term current use of insulin E11.9 ; Generalized anxiety disorder F41.1 ; Bipolar disorder in remission F31.70 and Overweight (BMI 25.0-29.9) E66.3 [place] [id number] [place] [address] 55027- 8028 Aug, Type 2 diabetes mellitus without complication, without long- term current use of insulin E11.9 ; Elevated LDL cholesterol level E78.00 and Bipolar disorder, current episode mixed, mild F31.61 [facility] [address] 205294 -3433 Jul, Vaginal discharge N89.8 ; Skin irritation R23.8 and Dysuria R30.0 [facility] [address] [id number] -2140 Jul, Acute seasonal allergic rhinitis, unspecified trigger J30.2 and Chest pain, unspecified type R07.9 [place] [address] [place] 205290- 1291 Jun, Bipolar disorder, current episode mixed, mild F31.61 [place] [address] [place] [id number]- 0775 Jun, [place] [address] [place] 205295- 1249 Jun, Bipolar disorder, current episode mixed, mild F31.61 and Personality disorder F60.9 [place] [address] [place] [id number]- 9967 Jun, [place] [address] [place] [address] 205293- 5377 Jun, Type 2 diabetes mellitus without complication, without long- term current use of insulin E11.9 and Dysuria R30.0 [place] [address] [place] [id number]- 6974 May, Bipolar disorder, current episode mixed, mild F31.61 ; Personality disorder F60.9 and Homeless Z59.0 [place] [address] [place] 205290- 8269 May, Type 2 diabetes mellitus without complication, without long- term current use of insulin E11.9 [place] [address] [place] [id number]- 4552 May, History of hypertension Z86.79 [place] [id number] [place] [address] 40984- 8241 May, [place] [address] 56359- 3079 May, Type 2 diabetes mellitus without complication, without long- term current use of insulin E11.9 ; Elevated LDL cholesterol level E78.00 ; Low serum HDL R74.8 and Encounter for immunization Z23 [place] [address] 26130- 5235 Apr, Encounter to establish care Z76.89 ; Abnormal CBC R79.89 ; History of hypertension Z86.79 ; Overweight (BMI 25.0-29.9) E66.3 ; Family history of diabetes insipidus Z83.49 ; Sore throat J02.9 and Tonsillitis with exudate J03.90 [place] [id number] [place] [address] 64468- 4473 Apr, Bipolar disorder, current episode mixed, mild F31.61 [place] [id number] [place] [address] 75947- 8600 Mar, Bipolar disorder, current episode mixed, mild F31.61 [place] [id number] [place] [address] 79737- 5830 Mar, [place] [id number] [place] [address] 39992- 4968 Mar, [place] [id number] [place] [address] 74175- 1595 Mar, Bipolar disorder in remission F31.70 [place] [id number] [place] [address] 21482- 7148 Jan, [place] [id number] [place] [address] 85131- 2395 Jan, [place] [id number] [place] [address] 70033- 8167 Oct, Generalized anxiety disorder F41.1 and Bipolar disorder in remission F31.70 [facility] [address] [address]- 6776 30 Oct, 2016 [facility] [address] [facility] [id number] [place] [address] 2546 Oct, [facility] [address] [address]- 3616 Oct, [facility] [address] [address]- 2856 Oct, [facility] [address] [address]- 1766 Jul, [facility] [id number] [place] [address], [place] [address]- 9526 Jun, [facility] [address] [address]- 7106 May, 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 and Generalized anxiety disorder F41.1 [facility] [address] [address]- 8486 Jan, [facility] [address] [address]- 1136 Jan, [facility] [address] [address]- 2644 Jan, 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 and Generalized anxiety disorder F41.1 [facility] [address] [address] 2546 Sep, [facility] [address] [address] 2546 Sep, [facility] [address] [address] 2546 Jul, 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 and Generalized anxiety disorder F41.1 [facility] [address] [address]- 6356 Jul, Otalgia of right ear H92.01 [facility] [address] [address]- 3290 Jun, [facility] [id number] [place] [address] 74479- 4386 Mar, [facility] [id number] [place] [address] 90725- 6763 Jan, [facility] [id number] [place] [address] 57433- 9525 Jan, [facility] [id number] [place] [address] 50774- 5381 Jan, Bipolar 1 disorder, mixed, moderate 296.62 and SHERRY ( generalized anxiety disorder) 300.02 [facility] [id number] [place] [address] 12938- 6704 Jan, [facility] [id number] [place] [address] 15768- 5860 Nov, [facility] [id number] [place] [address] 06972- 4410 Nov, [facility] [id number] [place] [address] 87476- 1991 Oct, [facility] [address] [address]- 3297 Oct, [facility] [id number] [place] [address] 93201- 6353 Mar, [facility] [address] [address]- 1820 Mar, [facility] [id number] [place] [address] 17272- 4856 Jan, [facility] [address] [address]- 5132 Jan, [facility] [id number] [place] [address], [place] [address]- 8986 December, [facility] [place] [facility] [address] [id number] [place] [address]- 4874 December, [facility] [place] [facility] [address] [id number] [place] [address]- 6129 December, [facility] [place] [facility] [address] [id number] [place] [address]- 8414 December, [facility] [place] [facility] [address] [id number] [place] [address]- 6574 December, [facility] [place] [facility] [address] [id number] [place] [address]- 6227 December, [facility] [place] [facility] [address] [id number] [place] [address]- 2971 December, [facility] [place] [facility] [address] [id number] [place] [address]- 6771 December, [facility] [place] [facility] [address] [id number] [place] [address]- 2081 Nov, [facility] [place] [facility] [address] [id number] [place] [address]- 5232 Nov, [facility] [place] [facility] [address] [id number] [place] [address]- 8715 Oct, [facility] [place] [facility] [address] [id number] [place] [address]- 9794 Oct, [facility] [place] [facility] [address] [id number] [place] [address]- 6985 Oct, [facility] [place] [facility] [address] [id number] [place] [address]- 5563 Oct, [facility] [place] [facility] [address] [id number] [place] [address]- 9634 Oct, [facility] [place] [facility] [address] [id number] [place] [address]- 0634 Sep, [facility] [place] [facility] [address] [id number] [place] [address]- 0313 Sep, [facility] [place] [facility] [address] [id number] [place] [address]- 0736 Sep, [facility] [place] [facility] [address] [id number] [place] [address]- 8765 Sep, [facility] [place] [facility] [address] [id number] [place] [address]- 3970 Aug, [facility] [place] [facility] [address] [id number] [place] [address]- 0845 Aug, [facility] [place] [facility] [address] [id number] [place] [address]- 0325 Aug, [facility] [place] [facility] [address] [id number] [place] [address]- 3652 Aug, [facility] [place] [facility] [address] [id number] [place] [address]- 3851 Aug, [facility] [place] [facility] [address] [id number] [place] [address]- 7305 Jul, [facility] [place] [facility] [address] [id number] [place] [address]- 1110 Jul, [facility] [place] [facility] [address] [id number] [place] [address]- 0953 Jul, [facility] [place] [facility] [address] [id number] [address]- 7021 Jul, [facility] [place] [facility] [address] [id number] [place] [address]- 9851 Jun, [facility] [place] [facility] [address] [id number] [place] [address]- 3868 Jun, [facility] [place] [facility] [address] [id number] [place] [address]- 2404 May, [facility] [place] [facility] [address] [id number] [address]- 1749 May, [facility] [place] [facility] [address] [id number] [place] [address]- 8140 May, [facility] [place] [facility] [address] [id number] [place] [address]- 9439 May, [facility] [place] [facility] [address] [id number] [place] [address]- 0231 May, [facility] [place] [facility] [address] [id number] [place] [address]- 7584 May, [facility] [place] [facility] [address] [id number] [place] [address]- 6957 May, [facility] [place] [facility] [address] [id number] [place] [address]- 3814 May, [facility] [place] [facility] [address] [id number] [place] [address]- 9814 May, [facility] [place] [facility] [address] [id number] [place] [address]- 2872 Apr, [facility] [place] [facility] [address] [id number] [place] [address]- 3695 Apr, [facility] [place] [facility] [address] [id number] [place] [address]- 5338 Mar, [facility] [place] [facility] [address] [id number] [place] [address]- 4206 Mar, [facility] [place] [facility] [address] [id number] [place] [address]- 4005 Mar, [facility] [place] [facility] [address] [id number] [place] [address]- 5749 Mar, [facility] [place] [facility] [address] [id number] [place] [address]- 1200 Mar, [facility] [place] [facility] [address] [id number] [place] [address]- 1743 Mar, [facility] [place] [facility] [address] [id number] [place] [address]- 0556 Mar, [facility] [address] [id number] [place] [address]- 4271 Mar, [facility] [place] [facility] [address] [id number] [place] [address] 2546 Mar, [facility] [address] [id number] [place] [address]- 5592 Mar, [facility] [place] [facility] [address] [id number] [place] [address]- 3695 Mar, [facility] [address] [id number] [place] [address]- 8621 Jan, [facility] [address] [id number] [place] [address]- 9672 Jan, [facility] [address] [id number] [place] [address]- 5407 Jan, [facility] [address] [id number] [place] [address]- 9832 December, [facility] [address] [id number] [place] [address]- 9920 December, [facility] [address] [id number] [place] [address]- 4875 Nov, [facility] [place] [facility] [address] [id number] [place] [address]- 1134 Nov, [facility] [address] [id number] [place] [address]- 1783 Oct, [facility] [place] [facility] [address] [id number] [place] [address]- 9109 Oct, [facility] [place] [facility] [address] [id number] [place] [address]- 6846 Oct, [facility] [place] [facility] [address] [id number] [place] [address]- 2793 Oct, [facility] [address] [id number] [place] [address]- 2904 19 Oct, 2012 [facility] [place] [facility] [address] [id number] [place] [address]- 6278 19 Oct, 2012 [facility] [address] [id number] [place] [address]- 1748 17 Oct, 2012 [facility] [place] [facility] [address] [id number] [place] [address]- 9325 16 Oct, 2012 [facility] [address] [id number] [place] [address]- 6830 14 Oct, 2012 [facility] [place] [facility] [address] [id number] [place] [address]- 9668 13 Oct, 2012 [facility] [address] [id number] [place] [address]- 5680 05 Oct, 2012 [facility] [address] [id number] [place] [address]- 5957 14 Sep, 2012 [facility] [place] [facility] [address] [id number] [place] [address]- 1962 08 Sep, 2012 [facility] [address] [id number] [place] [address]- 9954 Aug, [facility] [address] [id number] [place] [address]- 5047 16 Aug, 2012 [facility] [place] [facility] [address] [id number] [place] [address]- 6700 Aug, [facility] [place] [facility] [address] [id number] [place] [address]- 3419 Aug, [facility] [place] [facility] [address] [id number] [place] [address]- 7471 Aug, [facility] [place] [facility] [address] [id number] [place] [address]- 6282 Jul, [facility] [place] [facility] [address] [id number] [place] [address]- 0935 21 Jul, 2012 [facility] [place] [facility] [address] [id number] [place] [address]- 0046 Jul, [facility] [place] [facility] [address] [id number] [place] [address]- 4196 Jul, [facility] [address] [id number] [place] [address]- 1526 18 Jul, 2012 [facility] [place] [facility] [address] [id number] [place] [address]- 1806 17 Jul, 2012 [facility] [address] [id number] [place] [address]- 9076 14 Jul, 2012 [facility] [place] [facility] [address] [id number] [place] [address]- 5376 14 Jul, 2012 [facility] [address] [id number] [place] [address]- 9460 Jul, [facility] [place] [facility] [address] [id number] [place] [address]- 7197 Jul, [facility] [place] [facility] [address] [id number] [place] [address]- 3186 05 Jul, 2012 [facility] [place] [facility] [address] [facility] [id number] [place] [address]- 4144 05 Jul, 2012 [facility] [place] [facility] [address] [id number] [place] [address] Jul, [facility] [place] [facility] [address] [id number] [place] [address] Jul, [facility] [place] [facility] [address] [id number] [place] [address] Jul, [facility] [place] [facility] [address] [id number] [place] [address] Jul, [facility] [place] [facility] [address] [id number] [place] [address] Jun, [facility] [place] [facility] [address] [id number] [place] [address] Jun, [facility] [place] [facility] [address] [id number] [place] [address] Jun, [facility] [place] [facility] [address] [id number] [place] [address] Jun, [facility] [place] [facility] [address] [id number] [place] [address] Jun, [facility] [place] [facility] [address] [id number] [place] [address] Jun, [facility] [place] [facility] [address] [id number] [place] [address] Jun, [facility] [place] [facility] [address] [id number] [place] [address] Jun, [facility] [place] [facility] [address] [id number] [place] [address] Jun, [facility] [place] [facility] [address] [id number] [place] [address] May, [facility] [place] [facility] [address] [id number] [place] [address] Mar, [facility] [place] [facility] [address] [id number] [place] [address] Mar, [facility] [place] [facility] [address] [id number] [place] [address] Mar, [facility] [place] [facility] [address] [id number] [place] [address] Mar, [facility] [place] [facility] [address] [id number] [place] [address] Jan, [facility] [place] [facility] [address] [id number] [place] [address] Jan, [facility] [place] [facility] [address] [id number] [place] [address] Jan, [facility] [place] [facility] [address] [id number] [place] [address] Jan, [facility] [place] [facility] [address] [id number] [place] [address] Jan, [facility] [place] [facility] [address] [id number] [place] [address]- [address] Jan, [facility] [place] [facility] [address] [id number] [place] [address] December, [facility] [place] [facility] [address] [id number] [place] [address]- [address] December, [facility] [place] [facility] [address] [id number] [place] [address] Nov, [facility] [place] [facility] [address] [id number] [place] [address] Nov, [facility] [place] [facility] [address] [id number] [place] [address] Oct, [facility] [place] [facility] [address] [id number] [place] [address] Oct, [facility] [place] [facility] [address] [id number] [place] [address] Oct, [facility] [place] [facility] [address] [id number] [place] [address] Oct, [facility] [place] [facility] [address] [id number] [place] [address] Aug, [facility] [place] [facility] [address] [id number] [place] [address] Aug, [facility] [place] [facility] [address] [id number] [place] [address] Jun, [facility] [place] [facility] [address] [id number] [place] [address] Jun, [facility] [place] [facility] [address] [address] [id number] [place] [address] Jun, [facility] [place] [facility] [address] [id number] [place] [address] Jun, [facility] [place] [facility] [address] [id number] [place] [address] Jun, [facility] [place] [facility] [address] [id number] [place] [address] May, [facility] [place] [facility] [address] [id number] [place] [address] May, [facility] [place] [facility] [address] [id number] [place] [address] May, [facility] [place] [facility] [address] [id number] [place] [address] May, [facility] [place] [facility] [address] [id number] [place] [address] May, [facility] [place] [facility] [address] [id number] [place] [address] May, [facility] [place] [facility] [address] [id number] [place] [address] May, [facility] [place] [facility] [address] [id number] [place] [address] Mar, [facility] [place] [facility] [address] [id number] [place] [address] May, [facility] [place] [facility] [address] [id number] [place] [address] Jan, [facility] [place] [facility] [address] [id number] [place] [address] Jul, [facility] [place] [facility] [address] [id number] [place] [address] Jun, [facility] [place] [facility] [address] [id number] [place] [address] Jun, [facility] [address] [facility] [id number] [address] [address] Jun, [facility] [id number] [address] Jun, [facility] [address] [id number] [address] Jun, [facility] [id number] [address] May, [facility] [address] [id number] [address] May, [facility] [id number] [address] May, [facility] [address] [id number] [address] Jul, IMMUNIZATIONS No Known Immunizations SOCIAL HISTORY Never Assessed REASON FOR VISIT eye pain Pt c/o pain at bridge of nose and behind her eyes for 3 days, states she does have a headache with this YARON Higgins PLAN OF CARE Activity Details Follow Up prn Reason: VITAL SIGNS Height 62 in 2017-10-14 Weight 161.2 lbs 2017-10-14 Temperature 97.9 degrees Fahrenheit 2017-10-14 Heart Rate 76 bpm 2017-10-14 Respiratory Rate 20 2017-10-14 BMI 29.48 kg/m2 2017-10-14 Blood pressure systolic 110 mmHg 2017-10-14 Blood pressure diastolic 62 mmHg 2017-10-14 MEDICATIONS Medication Instructions Dosage Frequency Start Date End Date Duration Status Melatonin 5 mg Orally take at bedtime 1 tablet Apr, 30 days Active Lisinopril 2.5 MG Orally Once a day 2 tablets 24h 90 days Active Abilify 5 MG Orally Once a day at bedtime 1 tablet 30 days Active Glimepiride 1 MG Orally Once a day 1 tablet with breakfast or the first main meal of the day 24h May, 90 days Active Atorvastatin Calcium 10 mg Orally Once a day 1 tablet 24h May, 90 days Active Azelastine HCl 0.05 % Ophthalmic Twice a day 1 drop into affected eye 12h 14 Oct, 2017 Active Trazodone HCl 100 mg Orally at bedtime as needed for sleep 1 tabs Apr 90 days Active Flonase 50 MCG/ACT Nasally Once a day 1 spray in each nostril 24h Jul, 30 day(s) Not-Taking Tizanidine HCl 4 MG Orally Three times a day 1 capsule as needed 8h 12 SepOct, 30 days Active Aspir-81 81 MG Orally Once a day 1 tablet 24h Apr, Jan, 90 days Active BusPIRone HCl 15 MG Orally 3 times a day 1 tablet 8h 05 Aug, 2017 30 days Active Naproxen 500 mg Orally every 12 hrs 1 tablet with food or milk as needed 12h Oct, Active Glucocard Expression Test 1 subcutaneously 2 times a day test 2 times per day 12h 02 May, 2017 12 months Active RESULTS No Results PROCEDURES Procedure Date Ordered Result Body Site VISUAL ACUITY SCREEN October 14, 2017 INSTRUCTIONS MEDICATIONS ADMINISTERED No Known Medications MEDICAL (GENERAL) HISTORY Type Description Date Medical History hypertension Medical History depression (hx of suicidal plan in 2012) Medical History insomnia Medical History bipolar disorder Surgical History Appendix Surgical History Tubal Ligation Hospitalization History Child /surgery Hospitalization History psych inpatient treatment, SI 2011
--- OUTSIDE RECORDS SUMMARY | 2018-02-17 12:10 | XMS REPORT ---
Author Author ALEXANDRU ARACELIS [facility] Address [address] [place] [address] Care Team Providers Care Invoice Checker Name Role Phone JASWANTMARCELLUS ARACELIS Unavailable PROBLEMS Type Condition ICD9-CM Code BOB68-TA Code Onset Dates Condition Status SNOMED Code Problem History of hypertension Z86.79 Active 059892687 Problem Elevated LDL cholesterol level E78.00 Active 167197624 Problem Personality disorder F60.9 Active 84566964 Problem Other chronic pain G89.29 Active 71989583 Problem Hypoglycemia E16.2 Active 779419157 Problem Acute seasonal allergic rhinitis, unspecified trigger J30.2 Active 672906442 Problem Type 2 diabetes mellitus without complication, without long-term current use of insulin E11.9 Active 019352633 Problem Primary insomnia F51.01 Active 9474220 Problem Acute non intractable tension-type headache G44.209 Active 508557138 Problem Generalized anxiety disorder F41.1 Active 06630608 Problem Bipolar disorder in remission F31.70 Active 60913692 Problem Family history of diabetes insipidus Z83.49 Active 140024073 Problem Abnormal CBC R79.89 Active 442948198 Problem Bipolar disorder, current episode mixed, mild F31.61 Active 076786784 Problem History of diabetes mellitus Z86.39 Active 842611756 Problem Overweight (BMI 25.0-29.9) E66.3 Active 151883389 Problem Sore throat J02.9 Active 491248514 ALLERGIES No Information ENCOUNTERS Encounter Location Date Diagnosis [facility] [address] [facility] [id number] [address] Jan, [facility] [address] [id number] [address] December, [facility] [address] [id number], [place] [address] December, [place] [id number] [place] [address] 26130- 4293 Nov, Bipolar disorder, current episode mixed, mild F31.61 and Personality disorder F60.9 [place] [id number] [place] [address] 30423- 3362 Nov, Elevated LDL cholesterol level E78.00 and Type 2 diabetes mellitus without complication, without long-term current use of insulin E11.9 [place] [id number] [place] [address] 98291- 3289 Nov, Elevated LDL cholesterol level E78.00 and Type 2 diabetes mellitus without complication, without long-term current use of insulin E11.9 [place] [id number] [place] [address] 79218- 4036 Nov, Other chronic pain G89.29 and Pain in left leg M79.605 [place] [id number] [place] [address] 35541- 9913 Nov, Acute pain of left knee M25.562 ; Syncope, unspecified syncope type R55 and Hypoglycemia E16.2 [place] [id number] [place] [address] 28016- 9470 Oct, Syncope, unspecified syncope type R55 [place] [id number] [place] [address] 55383- 4468 Oct, Bipolar disorder, current episode mixed, mild F31.61 and Personality disorder F60.9 [place] [id number] [place] [address] 95078- 7315 Oct, Lump of right breast N63.10 [place] [id number] [place] [address] 50005- 6237 Oct, Generalized anxiety disorder F41.1 [place] [id number] [place] [address] 93653- 0334 Oct, Generalized anxiety disorder F41.1 ; Bipolar disorder in remission F31.70 ; Bipolar disorder, current episode mixed, mild F31.61 and Primary insomnia F51.01 [facility] [address] 6[address]- 8413 20 Oct, 2017 Primary insomnia F51.01 and Lump of right breast N63.10 [facility] [address] 20817- 8236 16 Oct, 2017 Enteritis K52.9 [facility] [address] [address] -9427 14 Oct, 2017 Allergic conjunctivitis of both eyes H10.13 and Acute non intractable tension-type headache G44.209 [place] [address] 190874- 1264 14 Oct, 2017 [place] [address] 61693- 5250 Oct, Bipolar disorder, current episode mixed, mild F31.61 [place] [address] 76103- 7177 Sep, Right flank pain R10.9 and Thoracic spine pain M54.6 [place] [address] 09577- 6196 16 Sep, 2017 Generalized anxiety disorder F41.1 and Bipolar disorder, current episode mixed, mild F31.61 [place] [address] 14296- 2740 Sep, [place] [address] 03842- 2171 Sep, Generalized anxiety disorder F41.1 ; Bipolar disorder in remission F31.70 and Personality disorder F60.9 [place] [address] [place] [address] [id number]- 8735 12 Sep, 2017 Spasm of thoracic back muscle M62.830 ; Type 2 diabetes mellitus without complication, without long-term current use of insulin E11.9 and Generalized anxiety disorder F41.1 [place] [address] [place] [address]- 0171 12 Sep, 2017 Bipolar disorder, current episode mixed, mild F31.61 and Personality disorder F60.9 [place] [id number] [place] [address] 91588- 7561 Aug, [place] [address] 35052- 5054 Aug, Bipolar disorder, current episode mixed, mild F31.61 and Personality disorder F60.9 [place] [id number] [place] [address] 82153- 9790 Aug, Type 2 diabetes mellitus without complication, without long- term current use of insulin E11.9 ; Generalized anxiety disorder F41.1 ; Bipolar disorder in remission F31.70 and Overweight (BMI 25.0-29.9) E66.3 [place] [address] 43791- 4640 Aug, Type 2 diabetes mellitus without complication, without long- term current use of insulin E11.9 ; Elevated LDL cholesterol level E78.00 and Bipolar disorder, current episode mixed, mild F31.61 [facility] [address] 78976 -9076 Jul, Vaginal discharge N89.8 ; Skin irritation R23.8 and Dysuria R30.0 [facility] [id number] [place] [address] 73636 -3611 Jul, Acute seasonal allergic rhinitis, unspecified trigger J30.2 and Chest pain, unspecified type R07.9 [place] [id number] [place] [address] 09391- 1607 Jun, Bipolar disorder, current episode mixed, mild F31.61 [place] [id number] [place] [address] 27659- 8289 Jun, [place] [address] 61621- 0760 Jun, Bipolar disorder, current episode mixed, mild F31.61 and Personality disorder F60.9 [place] [address] [place] [address] [id number]- 7770 Jun, [place]- 5589 Jun, Type 2 diabetes mellitus without complication, without long- term current use of insulin E11.9 and Dysuria R30.0 [place]- 6121 May, Bipolar disorder, current episode mixed, mild F31.61 ; Personality disorder F60.9 and Homeless Z59.0 [place] 028551- 0570 May, Type 2 diabetes mellitus without complication, without long- term current use of insulin E11.9 [place] [address]- 6492 May, History of hypertension Z86.[address] [address]34- 7672 May, [place] [address]- 4596 May, Type 2 diabetes mellitus without complication, without long- term current use of insulin E11.9 ; Elevated LDL cholesterol level E78.00 ; Low serum HDL R74.8 and Encounter for immunization Z23 [place]39212- 9359 Apr, Encounter to establish care Z76.89 ; Abnormal CBC R79.89 ; History of hypertension Z86.79 ; Overweight (BMI 25.0-29.9) E66.3 ; Family history of diabetes insipidus Z83.49 ; Sore throat J02.9 and Tonsillitis with exudate J03.[address] 28745- 3293 Apr, Bipolar disorder, current episode mixed, mild F31.61 [facility] [address], [place] [address] 5336 Mar, [facility] [id number] [place] [address], [place] [address]- 5856 Mar, Bipolar disorder, current episode mixed, mild F31.61 [facility] [address] [place] [address] 2546 Mar, [facility] [id number] [place] [address] 10946 2546 Mar, Bipolar disorder in remission F31.70 [facility] [address] [place] [address]- 7406 Jan, [facility] [address], [place] [address]- 8296 Jan, [facility] [address] [place] [address] 15439- 9416 Oct, Generalized anxiety disorder F41.1 and Bipolar disorder in remission F31.70 [facility] [address] [place] [address]- 3536 Oct, [facility] [address], [place] [address]- 2226 Oct, [facility] [address], [place] [address]- 1596 Oct, [facility] [address], [place] [address] 2546 Oct, [facility] [id number], [place] [address] 2546 Jul, [facility] [address] [id number], [place] [address] 2546 Jun, [facility] [id number], [place] [address]- 7476 May, 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 and Generalized anxiety disorder F41.1 [facility] [address], [place] [address]- 5769 Jan, [facility] [id number] [place] [address] 34418- 5276 Jan, [facility] [id number] [place] [address] 02985- 5775 Jan, 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 and Generalized anxiety disorder F41.1 [facility] [id number] [place] [address] 94176- 2173 Sep, [facility] [id number] [place] [address] 21870- 7536 Sep, [facility] [id number] [place] [address] 20375- 3928 Jul, 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 and Generalized anxiety disorder F41.1 [facility] [id number] [place] [address] 86333- 9504 Jul, Otalgia of right ear H92.01 [facility] [id number] [place] [address] 77670- 0821 Jun, [facility] [id number] [place] [address] 88965- 4720 Mar, [facility] [address] [place] [address] 17912- 2380 Jan, [facility] [id number] [place] [address] 49337- 8084 Jan, [facility] [id number] [place] [address] 74632- 0636 Jan, Bipolar 1 disorder, mixed, moderate 296.62 and SHERRY ( generalized anxiety disorder) 300.02 [facility] [address] [place] [address] 47686- 5724 Jan, [facility] [id number] [place] [address] 95703- 0840 Nov, [facility] [place] [facility] [address] [id number] [place] [address]- 7977 Nov, [facility] [place] [facility] [address] [id number] [place] [address]136 Oct, [facility] [place] [facility] [address] [id number] [place] [address]- 1975 Oct, [facility] [place] [facility] [address] [id number] [place] [address]- 0069 Mar, [facility] [place] [facility] [address] [id number] [place] [address]- 4383 Mar, [facility] [place] [facility] [address] [id number] [place] [address]- 5083 Jan, [facility] [place] [facility] [address] [id number] [place] [address]- 5394 Jan, [facility] [place] [facility] [address] [id number] [place] [address]- 0890 December, [facility] [place] [facility] [address] [id number] [place] [address]- 4[address] December, [facility] [place] [facility] [address] [id number] [place] [address]- 0742 December, [facility] [place] [facility] [address] [id number] [place] [address]- 6456 December, [facility] [place] [facility] [address] [id number] [place] [address]- 3869 December, [facility] [place] [facility] [address] [id number] [place] [address]- 5371 December, [facility] [place] [facility] [address] [id number] [place] [address]- 2210 December, [facility] [place] [facility] [address] [id number] [place] [address]- 3204 December, [facility] [place] [facility] [address] [id number] [place] [address]- 8288 15 Nov, 2013 [facility] [place] [facility] [address] [id number] [place] [address]- 0489 15 Nov, 2013 [facility] [place] [facility] [address] [id number] [place] [address]- 1914 10 Oct, 2013 [facility] [place] [facility] [address] [id number] [place] [address]- 5000 Oct, [facility] [place] [facility] [address] [id number] [place] [address]- 4848 Oct, [facility] [place] [facility] [address] [id number] [place] [address]- 1978 Oct, [facility] [place] [facility] [address] [id number] [place] [address]- 0505 Oct, [facility] [place] [facility] [address] [id number] [place] [address]- 3907 Sep, [facility] [place] [facility] [address] [id number] [place] [address]- 1606 Sep, [facility] [place] [facility] [address] [id number] [place] [address]- 9814 14 Sep, 2013 [facility] [place] [facility] [address] [id number] [place] [address]- 2822 Sep, [facility] [place] [facility] [address] [id number] [place] [address]- 1873 Aug, [facility] [place] [facility] [address] [id number] [place] [address]- 2654 Aug, [facility] [place] [facility] [address] [id number] [place] [address]- 2490 Aug, [facility] [place] [facility] [address] [id number] [place] [address]- 9700 Aug, [facility] [place] [facility] [address] [id number] [place] [address]- 4210 Aug, [facility] [place] [facility] [address] [id number] [place] [address]- 1714 16 Jul, 2013 [facility] [place] [facility] [address] [id number] [place] [address]- 9154 16 Jul, 2013 [facility] [place] [facility] [address] [id number] [place] [address]- 7820 Jul, [facility] [place] [facility] [address] [id number] [place] [address]- 1844 Jul, [facility] [place] [facility] [address] [id number] [place] [address]- 4730 Jun, [facility] [place] [facility] [address] [id number] [place] [address]- 4864 Jun, [facility] [place] [facility] [address] [id number] [place] [address]- 2815 May, [facility] [place] [facility] [address] [id number], [place] [address]- 8989 May, [facility] [place] [facility] [address] [id number], [place] [address]- 3016 May, [facility] [place] [facility] [address] [id number], [place] [address]- 7171 18 May, 2013 [facility] [place] [facility] [address] [id number], [place] [address]- 2314 15 May, 2013 [facility] [place] [facility] [address] [id number], [place] [address]- 2518 15 May, 2013 [facility] [place] [facility] [address] [id number], [place] [address]- 7641 09 May, 2013 [facility] [place] [facility] [address] [id number], [place] [address]- 8028 07 May, 2013 [facility] [place] [facility] [address] [id number], [place] [address]- 4619 May, [facility] [place] [facility] [address] [id number] [place] [address]- 0440 Apr, [facility] [address] [id number] [place] [address]- 2685 Apr, [facility] [address] [id number] [place] [address]- 7521 Mar, [facility] [address] [id number] [place] [address]- 2850 Mar, [facility] [address] [id number] [place] [address]- 9761 Mar, [facility] [address] [id number] [place] [address]- 4248 Mar, [facility] [address] [id number] [place] [address]- 8877 Mar, [facility] [address] [id number] [place] [address]- 5282 Mar, [facility] [address] [id number] [place] [address]- 2869 Mar, [facility] [place] [facility] [address] [id number] [place] [address]- 3586 Mar, [facility] [address] [id number] [place] [address]- 2234 Mar, [facility] [place] [facility] [address] [id number] [place] [address]- 8161 Mar, [facility] [place] [facility] [address] [id number] [place] [address]- 6266 Mar, [facility] [place] [facility] [address] [id number] [place] [address]- 9558 Jan, [facility] [place] [facility] [address] [id number] [place] [address]- 5930 Jan, [facility] [place] [facility] [address] [id number] [place] [address]- 0565 Jan, [facility] [address] [id number] [place] [address]- 5250 December, [facility] [address] [id number] [place] [address]- 3844 December, [facility] [address] [id number] [place] [address]- 0572 Nov, [facility] [address] [id number] [place] [address]- 4575 Nov, [facility] [address] [id number] [place] [address]- 1568 Oct, [facility] [address] [id number] [place] [address]- 1013 26 Oct, 2012 [facility] [address] [id number] [place] [address]- 6997 21 Oct, 2012 [facility] [address] [id number] [place] [address]- 3203 20 Oct, 2012 [facility] [address] [id number] [place] [address]- 6091 19 Oct, 2012 [facility] [address] [id number] [place] [address]- 3574 19 Oct, 2012 [facility] [address] [id number] [place] [address]- 8968 17 Oct, 2012 [facility] [address] [id number] [place] [address]- 0864 16 Oct, 2012 [facility] [address] [id number] [place] [address]- 4990 14 Oct, 2012 [facility] [place] [facility] [address] [id number] [place] [address]- 6542 13 Oct, 2012 [facility] [place] [facility] [address] [id number] [place] [address]- 2851 05 Oct, 2012 [facility] [place] [facility] [address] [id number], [place] [address]- 1457 14 Sep, 2012 [facility] [address] [id number] [place] [address]- 6733 08 Sep, 2012 [facility] [address] [id number] [place] [address]- 0263 Aug, [facility] [address] [id number] [place] [address]- 9251 16 Aug, 2012 [facility] [address] [id number] [place] [address]- 3188 Aug, [facility] [address] [id number] [place] [address]- 5945 Aug, [facility] [address] [id number] [place] [address]- 0704 Aug, [facility] [address] [id number] [place] [address]- 3904 Jul, [facility] [address] [id number] [place] [address]- 3462 Jul, [facility] [address] [id number] [place] [address]- 4432 19 Jul, 2012 [facility] [address] [facility] [id number] [place] [address]- 6118 19 Jul, 2012 [facility] [address] [id number] [place] [address]- 5590 18 Jul, 2012 [facility] [address] [id number] [place] [address]- 6153 17 Jul, 2012 [facility] [address] [id number] [place] [address]- 2514 14 Jul, 2012 [facility] [address] [id number] [place] [address]- 7223 14 Jul, 2012 [facility] [address] [facility] [id number] [place] [address]- 0865 06 Jul, 2012 [facility] [place] [facility] [address] [id number] [place] [address]- 2401 Jul, [facility] [place] [facility] [address] [id number] [place] [address]- 0376 Jul, [facility] [place] [facility] [address] [id number] [place] [address]- 5156 Jul, [facility] [place] [facility] [address] [id number] [place] [address]- 9986 Jul, [facility] [place] [facility] [address] [id number] [place] [address]- 0261 Jul, [facility] [place] [facility] [address] [id number] [place] [address]- 5778 Jul, [facility] [place] [facility] [address] [id number] [place] [address]- 1670 Jul, [facility] [place] [facility] [address] [id number] [place] [address]- 7967 Jun, [facility] [place] [facility] [address] [id number] [place] [address]- 1551 Jun, [facility] [place] [facility] [address] [id number] [place] [address] Jun, [facility] [place] [facility] [address] [id number] [place] [address] Jun, [facility] [place] [facility] [address] [id number] [place] [address] Jun, [facility] [place] [facility] [address] [id number] [place] [address] Jun, [facility] [place] [facility] [address] [id number] [place] [address] Jun, [facility] [place] [facility] [address] [id number] [place] [address] Jun, [facility] [place] [facility] [address] [id number] [place] [address] Jun, [facility] [place] [facility] [address] [id number] [place] [address] May, [facility] [place] [facility] [address] [id number] [place] [address] Mar, [facility] [place] [facility] [address] [id number] [place] [address] Mar, [facility] [place] [facility] [address] [id number] [place] [address] Mar, [facility] [place] [facility] [address] [id number] [place] [address] Mar, [facility] [place] [facility] [address] [id number] [place] [address] Jan, [facility] [place] [facility] [address] [id number] [place] [address] Jan, [facility] [place] [facility] [address] [id number] [place] [address] Jan, [facility] [place] [facility] [address] [id number] [place] [address] Jan, [facility] [place] [facility] [address] [id number] [place] [address] Jan, [facility] [place] [facility] [address] [id number] [place] [address] Jan, [facility] [place] [facility] [address] [id number], [place] [address] December, [facility] [place] [facility] [address] [id number] [place] [address] December, [facility] [place] [facility] [address] [id number] [place] [address] Nov, [facility] [place] [facility] [address] [id number] [place] [address] Nov, [facility] [place] [facility] [address] [id number] [place] [address] 27 Oct, 2011 [facility] [place] [facility] [address] [id number] [place] [address] Oct, [facility] [place] [facility] [address] [id number] [place] [address] 08 Oct, 2011 [facility] [place] [facility] [address] [id number] [place] [address] Oct, [facility] [place] [facility] [address] [id number] [place] [address] Aug, [facility] [place] [facility] [address] [id number] [place] [address] Aug, [facility] [place] [facility] [address] [id number] [place] [address] Jun, [facility] [place] [facility] [address] [id number] [place] [address] Jun, [facility] [place] [facility] [address] [id number] [place] [address] Jun, [facility] [place] [facility] [address] [id number] [place] [address] Jun, [facility] [place] [facility] [address] [facility] [id number] [place] [address] Jun, [facility] [place] [facility] [address] [id number] [place] [address] May, [facility] [place] [facility] [address] [id number] [place] [address] May, [facility] [place] [facility] [address] [id number] [place] [address] May, [facility] [place] [facility] [address] [id number] [place] [address] May, [facility] [place] [facility] [address] [id number] [place] [address] May, [facility] [address] [id number] [address] May, [facility] [facility] [address] [id number][place] [address] May, [facility] [address] [facility] [id number], [place] [address] Mar, [facility] [address] [id number], [place] [address] May, [facility] [address] [id number] [place] [address] Jan, [facility] [address] [id number] [place] [address] Jul, [facility] [address] [facility] [id number], [place] [address] Jun, [facility] [address] [facility] [id number], [place] [address] Jun, [facility] [address] [facility] [id number][place] [address] Jun, [facility] [address] [facility] [id number], [place] [address] Jun, [facility] [address] [facility] [id number], [place] [address] Jun, [facility] [address] [facility] [id number][place] [address] May, [facility] [address] [facility] [id number], [place] [address] May, [facility] [address] [facility] [id number], [place] [address] May, [facility] [address] [facility] [id number][place] [address] Jul, IMMUNIZATIONS No Known Immunizations SOCIAL HISTORY Never Assessed REASON FOR VISIT f/u PLAN OF CARE Activity Details Follow Up 4 Weeks Reason: VITAL SIGNS MEDICATIONS Medication Instructions Dosage Frequency Start Date End Date Duration Status Glucocard Expression Test 1 subcutaneously 2 times a day test 2 times per day 12h May, 12 months Active Atorvastatin Calcium 10 mg Orally Once a day 1 tablet 24h May, 90 days Active Aspir-81 81 MG Orally Once a day 1 tablet 24h Apr, Jan, 90 days Active Glimepiride 1 MG Orally Once a day 1 tablet with breakfast or the first main meal of the day 24h May, 45 days Active Lisinopril 5 mg Orally Once a day 1 tablet 24h May, 30 day(s) Active Melatonin 5 MG Orally take at bedtime 1 tablet Apr, 30 days Active Trazodone HCl 100 MG Orally at bedtime as needed for sleep 1-2 tabs Apr, 30 days Active MetFORMIN HCl ER 500 mg Orally Once a day 1 tablet with evening meal 24h May, 30 day(s) Active Abilify 5 MG Orally every night 1 tablet Apr, 30 days Active RESULTS No Results PROCEDURES [...]
--- OUTSIDE RECORDS SUMMARY | 2018-02-17 12:11 | XMS REPORT ---
Author Author ALEXANDRU ARACELIS Organization [facility] Address [address] [place] [address] Care Team Providers Care Urban Planner Name Role Phone JASWANTMARCELLUS ARACELIS Unavailable PROBLEMS Type Condition ICD9-CM Code ASI40-ER Code Onset Dates Condition Status SNOMED Code Problem History of hypertension Z86.79 Active 058793795 Problem Elevated LDL cholesterol level E78.00 Active 950871417 Problem Personality disorder F60.9 Active 42748459 Problem Other chronic pain G89.29 Active 40921069 Problem Hypoglycemia E16.2 Active 850450088 Problem Acute seasonal allergic rhinitis, unspecified trigger J30.2 Active 897428836 Problem Type 2 diabetes mellitus without complication, without long-term current use of insulin E11.9 Active 519873906 Problem Primary insomnia F51.01 Active 0945587 Problem Acute non intractable tension-type headache G44.209 Active 613916146 Problem Generalized anxiety disorder F41.1 Active 53943864 Problem Bipolar disorder in remission F31.70 Active 15384602 Problem Family history of diabetes insipidus Z83.49 Active 451270438 Problem Abnormal CBC R79.89 Active 379359783 Problem Bipolar disorder, current episode mixed, mild F31.61 Active 285855817 Problem History of diabetes mellitus Z86.39 Active 091255342 Problem Overweight (BMI 25.0-29.9) E66.3 Active 642511985 Problem Sore throat J02.9 Active 068254565 ALLERGIES No Information ENCOUNTERS Encounter Location Date Diagnosis [facility] [id number], [place] [address] Jan, Scabies B86 [facility] [id number], [place] [address] Jan, Bipolar disorder, current episode mixed, mild F31.61 and Personality disorder F60.9 [facility] [id number] [place] [address] 91458- 3154 Jan, Cyst of ovary, unspecified laterality N83.209 [place] [address] [place] [address]- 2329 December, Cyst of ovary, unspecified laterality N83.209 [place] [id number] [place] [address] 49412- 1898 December, [place] [address] [address]383- 3248 December, Dysuria R30.[address] 527652- 1140 December, [place] [id number] [place] [address] 70698- 8452 Nov, Bipolar disorder, current episode mixed, mild F31.61 and Personality disorder F60.9 [place] [address] 04617- 0113 Nov, Elevated LDL cholesterol level E78.00 and Type 2 diabetes mellitus without complication, without long-term current use of insulin E11.9 [place] [id number] [place] [address] 68986- 7122 Nov, Elevated LDL cholesterol level E78.00 and Type 2 diabetes mellitus without complication, without long-term current use of insulin E11.9 [place] [id number] [place] [address] 66297- 3250 Nov, Other chronic pain G89.29 and Pain in left leg M79.605 [place] [id number] [place] [address] 45665- 5937 Nov, Acute pain of left knee M25.562 ; Syncope, unspecified syncope type R55 and Hypoglycemia E16.2 [place] [id number] [place] [address] 53591- 8035 Oct, Syncope, unspecified syncope type R55 [place] [id number] [place] [address] 87701- 0794 27 Oct, 2017 Bipolar disorder, current episode mixed, mild F31.61 and Personality disorder F60.9 [place] [address] [place] [id number]- 147 23 Oct, 2017 Lump of right breast N63.10 [place] [id number] [place] [address] 24981- 5485 Oct, Generalized anxiety disorder F41.1 [place] [address] 65409- 4890 Oct, Generalized anxiety disorder F41.1 ; Bipolar disorder in remission F31.70 ; Bipolar disorder, current episode mixed, mild F31.61 and Primary insomnia F51.01 [place] [id number] [place] [address] 27535- 9421 Oct, Primary insomnia F51.01 and Lump of right breast N63.10 [place] [address] 87683- 2344 16 Oct, 2017 Enteritis K52.9 [facility] [place] [address] 94137 -5393 14 Oct, 2017 Allergic conjunctivitis of both eyes H10.13 and Acute non intractable tension-type headache G44.209 [place] [id number] [place] [address] 82596- 6317 Oct, [place] [address] 69107- 1287 Oct, Bipolar disorder, current episode mixed, mild F31.61 [place] [address] 17035- 6366 22 Sep, 2017 Right flank pain R10.9 and Thoracic spine pain M54.6 [place] [id number] [place] [address] 72923- 2255 16 Sep, 2017 Generalized anxiety disorder F41.1 and Bipolar disorder, current episode mixed, mild F31.61 [place] [id number] [place] [address] 45617- 2571 14 Sep, 2017 [place] [address] 09764- 7968 14 Sep, 2017 Generalized anxiety disorder F41.1 ; Bipolar disorder in remission F31.70 and Personality disorder F60.9 [place] [address] 44980- 6056 12 Sep, 2017 Spasm of thoracic back muscle M62.830 ; Type 2 diabetes mellitus without complication, without long-term current use of insulin E11.9 and Generalized anxiety disorder F41.1 [place] [id number] [place] [address] 98308- 7901 12 Sep, 2017 Bipolar disorder, current episode mixed, mild F31.61 and Personality disorder F60.9 [place] [address] 17762- 8369 Aug, [place] [id number] [place] [address] 15395- 6392 Aug, Bipolar disorder, current episode mixed, mild F31.61 and Personality disorder F60.9 [place] [id number] [place] [address] 02554- 2320 Aug, Type 2 diabetes mellitus without complication, without long- term current use of insulin E11.9 ; Generalized anxiety disorder F41.1 ; Bipolar disorder in remission F31.70 and Overweight (BMI 25.0-29.9) E66.3 [place] [id number] [place] [address] 41802- 7436 Aug, Type 2 diabetes mellitus without complication, without long- term current use of insulin E11.9 ; Elevated LDL cholesterol level E78.00 and Bipolar disorder, current episode mixed, mild F31.61 [facility] IN [facility] [id number] [place] [address] 34741 -0026 Jul, Vaginal discharge N89.8 ; Skin irritation R23.8 and Dysuria R30.0 [facility] [id number] [place] [address] 46352 -1096 Jul, Acute seasonal allergic rhinitis, unspecified trigger J30.2 and Chest pain, unspecified type R07.9 [facility] [id number] [place] [address] 57148- 2966 Jun, Bipolar disorder, current episode mixed, mild F31.61 [facility] [address] 66750- 0676 Jun, [place] [address] [place] 936555- 8149 Jun, Bipolar disorder, current episode mixed, mild F31.61 and Personality disorder F60.9 [facility] [address] 65482- 8248 Jun, [facility] [address] 36628- 0460 Jun, Type 2 diabetes mellitus without complication, without long- term current use of insulin E11.9 and Dysuria R30.0 [place] [id number] [place] [address] 42723- 8831 May, Bipolar disorder, current episode mixed, mild F31.61 ; Personality disorder F60.9 and Homeless Z59.0 [facility] [id number] [place] [address] 75282- 5607 May, Type 2 diabetes mellitus without complication, without long- term current use of insulin E11.9 [place] [id number] [place] [address] 91713- 0125 May, History of hypertension Z86.79 [place] [id number] [place] [address] 74344- 6917 May, [facility] [id number] [place] [address] 11340- 0400 May, Type 2 diabetes mellitus without complication, without long- term current use of insulin E11.9 ; Elevated LDL cholesterol level E78.00 ; Low serum HDL R74.8 and Encounter for immunization Z23 [place] [address] 92197- 5803 26 Apr, 2017 Encounter to establish care Z76.89 ; Abnormal CBC R79.89 ; History of hypertension Z86.79 ; Overweight (BMI 25.0-29.9) E66.3 ; Family history of diabetes insipidus Z83.49 ; Sore throat J02.9 and Tonsillitis with exudate J03.90 [place] [address] 03663- 7376 Apr, Bipolar disorder, current episode mixed, mild F31.61 [place] [address] 88826- 4444 Mar, [place] [address] 30218- 8473 Mar, Bipolar disorder, current episode mixed, mild F31.61 [place] [address] 66380- 7912 Mar, [place] [id number] [place] [address] 27636- 1119 Mar, Bipolar disorder in remission F31.70 [place] [id number] [place] [address] 42944- 5798 Jan, [place] [id number] [place] [address] 14667- 6040 Jan, [place] [id number] [place] [address] 48709- 6678 Oct, Generalized anxiety disorder F41.1 and Bipolar disorder in remission F31.70 [place] [id number] [place] [address] 34655- 3557 Oct, [place] [address] 96091- 1995 Oct, [facility] [address], [place] [address]- 1787 Oct, [facility] [id number] [place] [address] 30648- 9886 Oct, [facility] [address], [place] [address]- 4931 Jul, [facility] [id number] [place] [address] 85139- 3566 Jun, [facility] [address] [place] [address] 13681- 6125 May, 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 and Generalized anxiety disorder F41.1 [facility] [address] [place] [address] 35935- 8596 Jan, [facility] [id number] [place] [address] 16480- 0675 Jan, [facility] [address] [place] [address] 18304- 7305 Jan, 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 and Generalized anxiety disorder F41.1 [facility] [address] [place] [address] 63394- 2063 Sep, [facility] [address], [place] [address]- 0625 Sep, [facility] [address] [address] 3653 Jul, 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 and Generalized anxiety disorder F41.1 [facility] [address] [place] [address] 231002- 7145 Jul, Otalgia of right ear H92.01 [facility] [address], [place] [address]- 0821 Jun, [facility] [id number] [place] [address] 99598- 9969 Mar, [facility] [id number], [place] [address]- [address] Jan, [facility] [id number] [address] Jan, [facility] [address] 6512 Jan, Bipolar 1 disorder, mixed, moderate 296.62 and SHERRY ( generalized anxiety disorder) 300.02 [facility] [address] [facility] [id number] [place] [address] Jan, [facility] [id number], [place] [address]- 7321 Nov, [facility] [address], [place] [address]- 5601 Nov, [facility] [id number], [place] [address]- 2655 Oct, [facility] [id number], [place] [address]- 8624 Oct, [facility] [id number], [place] [address]- 7984 Mar, [facility] [address], [place] [address]- 0499 Mar, [facility] [id number], [place] [address]- 8027 Jan, [facility] [address] [facility] [id number] [address]- 6229 Jan, [facility] [id number] 1925 December, [facility] [id number] 4057 December, [facility] [address], [place] [address]- 5967 December, [facility] [place] [facility] [address] [id number] [place] [address]- 9144 December, [facility] [place] [facility] [address] [id number] [place] [address]- 0072 December, [facility] [place] [facility] [address] [id number] [place] [address]- 0147 December, [facility] [place] [facility] [address] [id number] [place] [address]- 6960 December, [facility] [place] [facility] [address] [id number] [place] [address]- 6917 December, [facility] [place] [facility] [address] [id number] [place] [address]- 6761 Nov, [facility] [place] [facility] [address] [id number] [place] [address]- 9278 Nov, [facility] [place] [facility] [address] [id number] [place] [address]- 7557 Oct, [facility] [place] [facility] [address] [id number] [place] [address]- 6745 Oct, [facility] [place] [facility] [address] [id number] [place] [address]- 7846 Oct, [facility] [place] [facility] [address] [id number] [place] [address]- 7449 Oct, [facility] [place] [facility] [address] [id number] [place] [address]- 3148 Oct, [facility] [place] [facility] [address] [id number] [place] [address]- 0131 Sep, [facility] [place] [facility] [address] [id number] [place] [address]- 4936 Sep, [facility] [place] [facility] [address] [id number] [place] [address]- 1112 Sep, [facility] [place] [facility] [address] [id number] [place] [address]- 2550 14 Sep, 2013 [facility] [place] [facility] [address] [id number] [place] [address]- 3253 Aug, [facility] [place] [facility] [address] [id number] [place] [address]- 9389 Aug, [facility] [place] [facility] [address] [id number] [place] [address]- 2748 Aug, [facility] [place] [facility] [address] [id number] [place] [address]- 4994 Aug, [facility] [place] [facility] [address] [id number] [place] [address]- 1494 Aug, [facility] [place] [facility] [address] [id number] [place] [address]- 1017 Jul, [facility] [place] [facility] [address] [id number] [place] [address]- 5747 Jul, [facility] [place] [facility] [address] [id number] [place] [address]- 7912 Jul, [facility] [place] [facility] [address] [id number] [place] [address]- 7129 Jul, [facility] [place] [facility] [address] [id number] [place] [address]- 4555 Jun, [facility] [place] [facility] [address] [id number] [place] [address]- 6863 Jun, [facility] [place] [facility] [address] [id number] [place] [address]- 9096 May, [facility] [place] [facility] [address] [id number] [place] [address]- 4935 May, [facility] [place] [facility] [address] [id number] [place] [address]- 6763 May, [facility] [place] [facility] [address] [id number] [place] [address]- 0604 18 May, 2013 [facility] [place] [facility] [address] [id number] [place] [address]- 8345 15 May, 2013 [facility] [place] [facility] [address] [id number] [place] 5216 15 May, 2013 [facility] [place] [facility] [address] [id number] [place] [address]- 4905 May, [facility] [place] [facility] [address] [id number] [place] [address]- 1731 May, [facility] [place] [facility] [address] [id number] [place] [address]- 4417 May, [facility] [place] [facility] [address] [id number] [place] [address]- 0147 Apr, [facility] [place] [facility] [address] [id number] [place] [address]- 5729 Apr, [facility] [place] [facility] [address] [id number] [place] [address]- 9719 Mar, [facility] [place] [facility] [address] [id number] [place] [address]- 2214 Mar, [facility] [place] [facility] [address] [id number] [place] [address]- 4665 Mar, [facility] [place] [facility] [address] [id number] [place] [address]- 0334 Mar, [facility] [place] [facility] [address] [id number], [place] [address]- 2198 Mar, [facility] [place] [facility] [address] [id number] [place] [address]- 6574 Mar, [facility] [place] [facility] [address] [id number] [place] [address]- 1212 Mar, [facility] [place] [facility] [address] [id number] [place] [address]- 4883 Mar, [facility] [place] [facility] [address] [id number] [place] [address]- 3847 Mar, [facility] [address] [id number] [place] [address]- 2933 Mar, [facility] [address] [id number] [place] [address]- 3280 Mar, [facility] [address] [id number] [place] [address]- 3850 Jan, [facility] [address] [id number] [place] [address]- 2356 Jan, [facility] [address] [id number] [place] [address]- 6399 Jan, [facility] [address] [id number] [place] [address]- 2181 December, [facility] [address] [id number] [place] [address]- 0680 December, [facility] [address] [id number] [place] [address]- 8602 Nov, [facility] [address] [id number] [place] [address]- 6943 Nov, [facility] [address] [id number] [place] [address]- 3830 Oct, [facility] [address] [id number] [place] [address]- 7849 Oct, [facility] [address] [id number] [place] [address]- 6702 Oct, [facility] [address] [id number] [place] [address]- 7436 Oct, [facility] [address] [id number] [place] [address]- 0374 Oct, [facility] [address] [id number] [place] [address]- 3162 Oct, [facility] [address] [id number] [place] [address]- 3128 17 Oct, 2012 [facility] [place] [facility] [address] [id number] [place] [address]- 6007 16 Oct, 2012 [facility] [place] [facility] [address] [id number] [place] [address]- 4682 14 Oct, 2012 [facility] [place] [facility] [address] [id number] [place] [address]- 3311 13 Oct, 2012 [facility] [address] [id number] [place] [address]- 4245 05 Oct, 2012 [facility] [place] [facility] [address] [id number] [place] [address]- 6927 14 Sep, 2012 [facility] [address] [id number] [place] [address]- 6162 08 Sep, 2012 [facility] [address] [id number] [place] [address]- 7422 Aug, [facility] [place] [facility] [address] [id number] [place] [address]- 2944 Aug, [facility] [address] [id number] [place] [address]- 8717 Aug, [facility] [place] [facility] [address] [id number] [place] [address]- 8106 Aug, [facility] [place] [facility] [address] [id number], [place] [address]- 6874 Aug, [facility] [place] [facility] [address] [id number] [place] [address]- 8641 Jul, [facility] [place] [facility] [address] [id number] [place] [address]- 0646 Jul, [facility] [place] [facility] [address] [id number] [place] [address]- 5392 Jul, [facility] [place] [facility] [address] [id number], [place] [address]- 6438 19 Jul, 2012 [facility] [address] [id number] [place] [address]- 5232 18 Jul, 2012 [facility] [place] [facility] [address] [id number] [place] [address]- 2936 17 Jul, 2012 [facility] [place] [facility] [address] [facility] [id number] [place] [address]- 5666 14 Jul, 2012 [facility] [place] [facility] [address] [id number] [place] [address]- 8244 14 Jul, 2012 [facility] [place] [facility] [address] [id number] [place] 0602 06 Jul, 2012 [facility] [place] [facility] [address] [id number] [place] [address]- 5556 Jul, [facility] [address] [place] [address]- 3953 05 Jul, 2012 [facility] [place] [facility] [address] [id number] [place] [address]- 9531 Jul, [facility] [place] [facility] [id number] [place] [address]- 8541 Jul, [facility] [place] [facility] [address] [facility] [id number] [place] [address]- 1365 Jul, [facility] [place] [facility] [address] [facility] [id number] [place] [address]- 8558 Jul, [facility] [place] [facility] [address] [id number], [place] [address]- 2265 Jul, [facility] [place] [facility] [address] [id number] [place] [address]- 0935 Jun, [facility] [place] [facility] [address] [facility] [id number] [place] [address] Jun, [facility] [place] [facility] [address] [id number] [place] [address] Jun, [facility] [place] [facility] [address] [id number] [place] [address] Jun, [facility] [place] [facility] [address] [id number] [place] [address] Jun, [facility] [place] [facility] [address] [id number] [place] [address] Jun, [facility] [place] [facility] [address] [id number] [place] [address] Jun, [facility] [place] [facility] [address] [id number] [place] [address] Jun, [facility] [place] [facility] [address] [id number] [place] [address] Jun, [facility] [place] [facility] [address] [id number] [place] [address] May, [facility] [place] [facility] [address] [id number] [place] [address] Mar, [facility] [place] [facility] [address] [id number] [place] [address] Mar, [facility] [place] [facility] [address] [id number] [place] [address] Mar, [facility] [place] [facility] [address] [id number] [place] [address] Mar, [facility] [place] [facility] [address] [id number] [place] [address] Jan, [facility] [place] [facility] [address] [id number] [place] [address] Jan, [facility] [place] [facility] [address] [id number] [place] [address] Jan, [facility] [place] [facility] [address] [id number] [place] [address] Jan, [facility] [place] [facility] [address] [id number] [place] [address] Jan, [facility] [place] [facility] [address] [id number] [place] [address] Jan, [facility] [place] [facility] [address] [id number] [place] [address] December, [facility] [place] [facility] [address] [id number] [place] [address] December, [facility] [place] [facility] [address] [id number] [place] [address] Nov, [facility] [place] [facility] [address] [id number] [place] [address]- [address] Nov, [facility] [place] [facility] [address] [id number] [place] [address] Oct, [facility] [place] [facility] [address] [id number] [place] [address]- [address] Oct, [facility] [place] [facility] [address] [id number] [place] [address] Oct, [facility] [place] [facility] [address] [id number] [place] [address] Oct, [facility] [place] [facility] [address] [id number] [place] [address] Aug, [facility] [place] [facility] [address] [id number], [place] [address] Aug, [facility] [place] [facility] [address] [id number], [place] [address] Jun, [facility] [place] [facility] [address] [id number] [place] [address]- [address] Jun, [facility] [place] [facility] [address] [id number] [place] [address]- [address] Jun, [facility] [place] [facility] [address] [id number] [place] [address] Jun, [facility] [place] [facility] [address] [id number] [place] [address] Jun, [facility] [place] [facility] [address] [id number] [place] [address] May, [facility] [place] [facility] [address] [id number] [place] [address] May, [facility] [place] [facility] [address] [id number] [place] [address] May, [facility] [place] [facility] [address] [id number] [place] [address] May, [facility] [place] [facility] [address] [id number] [place] [address] May, [facility] [place] [facility] [address] [id number] [place] [address] May, [facility] [place] [facility] [address] [id number] [place] [address] May, [facility] [place] [facility] [address] [id number] [place] [address] Mar, [facility] [place] [facility] [address] [id number] [place] [address] May, [facility] [place] [facility] [address] [id number] [place] [address] Jan, [facility] [place] [facility] [address] [id number] [place] [address] Jul, [facility] [place] [facility] [address] [id number] [place] [address] Jun, [facility] [place] [facility] [address] [id number] [place] [address] Jun, [facility] [place] [facility] [address] [id number] [place] [address] Jun, [facility] [place] [facility] [address] [id number] [place] [id number] Jun, [facility] [address] [facility] [id number], [place] [address] Jun, [facility] [address] [facility] [id number], [place] [address] May, [facility] [address] [facility] [id number], [place] [address] May, [facility] [id number], [place] [address] May, [facility] [address] [facility] [id number], [place] [address] Jul, IMMUNIZATIONS No Known Immunizations SOCIAL HISTORY Never Assessed REASON FOR VISIT Heather/Jose J Domínguez RN PLAN OF CARE Activity Details Follow Up 3 Months Reason: VITAL SIGNS Height 62 in 2017-09-14 Weight 157 lbs 2017-09-14 Heart Rate 72 bpm 2017-09-14 Respiratory Rate 18 2017-09-14 BMI 28.71 kg/m2 2017-09-14 Blood pressure systolic 112 mmHg 2017-09-14 Blood pressure diastolic 70 mmHg 2017-09-14 MEDICATIONS Medication Instructions Dosage Frequency Start Date End Date Duration Status Melatonin 5 MG Orally take at bedtime 1 tablet Apr, Active Atorvastatin Calcium 10 mg Orally Once a day 1 tablet 24h May, 90 days Active Aspir-81 81 MG Orally Once a day 1 tablet 24h Apr, Jan, 90 days Active BusPIRone HCl 15 MG Orally 3 times a day 1 tablet 8h Aug, 30 days Active Glucocard Expression Test 1 subcutaneously 2 times a day test 2 times per day 12h May, 12 months Active Trazodone HCl 100 mg Orally at bedtime as needed for sleep 1-2 tabs Apr, 30 days Active Lisinopril 5 mg Orally Once a day 1 tablet 24h 90 days Active Glimepiride 1 MG Orally Once a day 1 tablet with breakfast or the first main meal of the day 24h May, Active Abilify 5 MG Orally Once a day at bedtime 1 tablet 30 days Active RESULTS No Results PROCEDURES [...]
--- OUTSIDE RECORDS SUMMARY | 2018-02-17 12:12 | XMS REPORT ---
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 Name Role Phone Soraya RUTH Unavailable PROBLEMS Type Condition ICD9-CM Code ZCE60-JE Code Onset Dates Condition Status SNOMED Code Problem History of hypertension Z86.79 Active 173853709 Problem Elevated LDL cholesterol level E78.00 Active 167368014 Problem Personality disorder F60.9 Active 08884448 Problem Other chronic pain G89.29 Active 00160494 Problem Hypoglycemia E16.2 Active 760673425 Problem Acute seasonal allergic rhinitis, unspecified trigger J30.2 Active 862180359 Problem Type 2 diabetes mellitus without complication, without long-term current use of insulin E11.9 Active 612102925 Problem Primary insomnia F51.01 Active 0290740 Problem Acute non intractable tension-type headache G44.209 Active 202652930 Problem Generalized anxiety disorder F41.1 Active 03121132 Problem Bipolar disorder in remission F31.70 Active 02228316 Problem Family history of diabetes insipidus Z83.49 Active 205931874 Problem Abnormal CBC R79.89 Active 621574326 Problem Bipolar disorder, current episode mixed, mild F31.61 Active 129241764 Problem History of diabetes mellitus Z86.39 Active 582387964 Problem Overweight (BMI 25.0-29.9) E66.3 Active 876505312 Problem Sore throat J02.9 Active 706480942 ALLERGIES No Information ENCOUNTERS Encounter Location Date Diagnosis [facility] [id number] [place] [address] 32632- 1395 Jan, Scabies B86 [facility] [id number] [address]24 Jan, Bipolar disorder, current episode mixed, mild F31.61 and Personality disorder F60.9 [facility] [id number] [place] [address] 08593- 7837 Jan, Cyst of ovary, unspecified laterality N83.209 [place] [address] [address]356- [address]50 December, Cyst of ovary, unspecified laterality N83.209 [place] [address] 53682- 4663 December, [place] [address] 27634- 0462 December, Dysuria R30.[address] [address]245- 3990 December, [place] [address] 46120- 1171 Nov, Bipolar disorder, current episode mixed, mild F31.61 and Personality disorder F60.[address] 37245- 8603 Nov, Elevated LDL cholesterol level E78.00 and Type 2 diabetes mellitus without complication, without long-term current use of insulin E11.9 [place] [id number] [place] [address] 23223- 4581 Nov, Elevated LDL cholesterol level E78.00 and Type 2 diabetes mellitus without complication, without long-term current use of insulin E11.9 [place] [id number] [place] [address] 64406- 3247 Nov, Other chronic pain G89.29 and Pain in left leg M79.[address] 21853- 0893 Nov, Acute pain of left knee M25.562 ; Syncope, unspecified syncope type R55 and Hypoglycemia E16.2 [place] [address] 82356- 5091 Oct, Syncope, unspecified syncope type R55 [place] [id number] [place] [address] 05652- 8674 27 Oct, 2017 Bipolar disorder, current episode mixed, mild F31.61 and Personality disorder F60.9 [place] [id number] [place] [address] 23 Oct, 2017 Lump of right breast N63.10 [place] [id number] [place] [address] 22292- 2049 Oct, Generalized anxiety disorder F41.1 [place] [address] 23480- 4277 Oct, Generalized anxiety disorder F41.1 ; Bipolar disorder in remission F31.70 ; Bipolar disorder, current episode mixed, mild F31.61 and Primary insomnia F51.01 [place] [id number] [place] [address] 59306- 6961 Oct, Primary insomnia F51.01 and Lump of right breast N63.10 [place] [id number] [place] [address] 56915- 1302 16 Oct, 2017 Enteritis K52.9 [facility] [address] [address]36 -9496 14 Oct, 2017 Allergic conjunctivitis of both eyes H10.13 and Acute non intractable tension-type headache G44.209 [place] [id number] [place] [address] 65672- 5661 14 Oct, 2017 [place] [id number] [place] [address] 57575- 7360 Oct, Bipolar disorder, current episode mixed, mild F31.61 [place] [address] 13467- 6561 22 Sep, 2017 Right flank pain R10.9 and Thoracic spine pain M54.6 [place] [id number] [place] [address] 79613- 7962 16 Sep, 2017 Generalized anxiety disorder F41.1 and Bipolar disorder, current episode mixed, mild F31.61 [place] [id number] [place] [address] 63414- 3316 14 Sep, 2017 [place] [address] 71386- 0375 14 Sep, 2017 Generalized anxiety disorder F41.1 ; Bipolar disorder in remission F31.70 and Personality disorder F60.9 [place] [address] 81887- 5899 12 Sep, 2017 Spasm of thoracic back muscle M62.830 ; Type 2 diabetes mellitus without complication, without long-term current use of insulin E11.9 and Generalized anxiety disorder F41.1 [place] [id number] [place] [address] 28723- 2799 12 Sep, 2017 Bipolar disorder, current episode mixed, mild F31.61 and Personality disorder F60.9 [place] [id number] [place] [address] 07819- 4318 Aug, [place] [address] 76008- 3218 Aug, Bipolar disorder, current episode mixed, mild F31.61 and Personality disorder F60.9 [place] [id number] [place] [address] 15519- 3130 Aug, Type 2 diabetes mellitus without complication, without long- term current use of insulin E11.9 ; Generalized anxiety disorder F41.1 ; Bipolar disorder in remission F31.70 and Overweight (BMI 25.0-29.9) E66.3 [place] [id number] [place] [address] 63941- 4215 Aug, Type 2 diabetes mellitus without complication, without long- term current use of insulin E11.9 ; Elevated LDL cholesterol level E78.00 and Bipolar disorder, current episode mixed, mild F31.61 [facility] [id number] [place] [address] 97613 -1771 Jul, Vaginal discharge N89.8 ; Skin irritation R23.8 and Dysuria R30.0 [facility] [id number] [place] [address] 28347 -9175 Jul, Acute seasonal allergic rhinitis, unspecified trigger J30.2 and Chest pain, unspecified type R07.9 [facility] [id number] [place] [address] 70187- 6556 Jun, Bipolar disorder, current episode mixed, mild F31.61 [facility] [address] 770534- 7047 Jun, [place] [address] 168008- 6271 Jun, Bipolar disorder, current episode mixed, mild F31.61 and Personality disorder F60.9 [place] [address] 50069- 6627 Jun, [place] [address] 61202- 8225 Jun, Type 2 diabetes mellitus without complication, without long- term current use of insulin E11.9 and Dysuria R30.0 [place] [address] 99374- 7261 May, Bipolar disorder, current episode mixed, mild F31.61 ; Personality disorder F60.9 and Homeless Z59.0 [place] [id number] [place] [address] 23412- 1741 May, Type 2 diabetes mellitus without complication, without long- term current use of insulin E11.9 [place] [id number] [place] [address] 95574- 4874 May, History of hypertension Z86.79 [place] [address] 93321- 2790 May, [place] [address] 41947- 9256 May, Type 2 diabetes mellitus without complication, without long- term current use of insulin E11.9 ; Elevated LDL cholesterol level E78.00 ; Low serum HDL R74.8 and Encounter for immunization Z23 [place] [id number] [place] [address] 05566- 8802 26 Apr, 2017 Encounter to establish care Z76.89 ; Abnormal CBC R79.89 ; History of hypertension Z86.79 ; Overweight (BMI 25.0-29.9) E66.3 ; Family history of diabetes insipidus Z83.49 ; Sore throat J02.9 and Tonsillitis with exudate J03.90 [place] [id number] [place] [address] 74879- 1151 Apr, Bipolar disorder, current episode mixed, mild F31.61 [place] [id number] [place] [address] 62061- 8338 Mar, [place] [address] 13646- 6620 Mar, Bipolar disorder, current episode mixed, mild F31.61 [place] [id number] [place] [address] 63025- 6513 Mar, [place] [id number] [place] [address] 70730- 5403 Mar, Bipolar disorder in remission F31.70 [place] [id number] [place] [address] 86286- 5384 Jan, [place] [id number] [place] [address] 22100- 3933 Jan, [place] [id number] [place] [address] 03600- 0493 Oct, Generalized anxiety disorder F41.1 and Bipolar disorder in remission F31.70 [place] [id number] [place] [address] 44897- 6286 Oct, [place] [id number] [place] [address] 17965- 7679 Oct, [facility] [address] [address]- 0748 Oct, [facility] [address] [address]- 0476 Oct, [facility] [address] [address]- 0576 Jul, [facility] [id number] [place] [address] 31475- 6696 Jun, [facility] [address] [place] [address] 10085- 5022 May, 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 and Generalized anxiety disorder F41.1 [facility] [address] [address]- 7266 Jan, [facility] [id number] [place] [address] 47350- 0990 Jan, [facility] [address] [address]- 4449 Jan, 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 and Generalized anxiety disorder F41.1 [facility] [address], [place] [address]- 6436 Sep, [facility] [address] [address]- 5733 Sep, [facility] [address] [address]- 0417 Jul, 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 and Generalized anxiety disorder F41.1 [facility] [address] [address]- 9186 Jul, Otalgia of right ear H92.01 [facility] [address] [address]- 3806 Jun, [facility] [id number] [address]- 7130 Mar, [facility] [id number] [place] [address]- 1008 Jan, [facility] [id number] [address]- 1630 Jan, [facility] [id number] [place] [address] 14516- 3955 Jan, Bipolar 1 disorder, mixed, moderate 296.62 and SHERRY ( generalized anxiety disorder) 300.02 [facility] [address] [facility] [id number] [place] [address]- 2374 Jan, [facility] [id number] [place] [address] 09687- 6519 Nov, [facility] [id number] [address]- 3938 Nov, [facility] [id number] [address]- 6624 Oct, [facility] [address] [place] [address]- 4349 Oct, [facility] [address] [address]- 0548 Mar, [facility] [address] [address]- 8610 Mar, [facility] [place] [facility] [id number] [address]- 8231 Jan, [facility] [place] [facility] [id number] [place] [address]- 8154 Jan, [facility] [place] [facility] [address] [facility] [id number] [address]- 4743 December, [facility] [place] [facility] [id number] [place] [address]- 8230 December, [facility] [id number] [place] [address], [place] [address]- 3035 December, [facility] [place] [facility] [address] [id number] [place] [address]- 8706 December, [facility] [place] [facility] [address] [id number] [place] [address]- 4814 December, [facility] [place] [facility] [address] [id number] [place] [address]- 9298 December, [facility] [place] [facility] [address] [id number] [place] [address]- 1848 December, [facility] [place] [facility] [address] [id number] [place] [address]- 2906 December, [facility] [place] [facility] [address] [id number] [place] [address]- 2213 Nov, [facility] [place] [facility] [address] [id number] [place] [address]- 9048 Nov, [facility] [place] [facility] [address] [id number] [place] [address]- 4572 Oct, [facility] [place] [facility] [address] [id number] [place] [address]- 9765 Oct, [facility] [place] [facility] [address] [facility] [id number] [place] [address]- 2658 Oct, [facility] [place] [facility] [address] [id number] [place] [address]- 6433 Oct, [facility] [place] [facility] [address] [id number] [place] [address]- 5082 Oct, [facility] [place] [facility] [address] [id number] [place] [address]- 0733 Sep, [facility] [place] [facility] [address] [id number] [place] [address]- 9297 Sep, [facility] [place] [facility] [address] [id number] [place] [address]- 6638 Sep, [facility] [place] [facility] [address] [id number] [place] [address]- 9864 14 Sep, 2013 [facility] [place] [facility] [address] [id number] [place] [address]- 0570 Aug, [facility] [place] [facility] [address] [id number] [place] [address]- 7641 Aug, [facility] [place] [facility] [address] [id number] [place] [address]- 1460 Aug, [facility] [place] [facility] [address] [id number] [place] [address]- 9091 Aug, [facility] [place] [facility] [address] [id number] [place] [address]- 2561 Aug, [facility] [place] [facility] [address] [id number] [place] [address]- 1588 16 Jul, 2013 [facility] [place] [facility] [address] [id number] [place] [address]- 9439 Jul, [facility] [place] [facility] [address] [id number] [place] [address]- 3265 Jul, [facility] [place] [facility] [address] [id number] [place] [address]- 4713 Jul, [facility] [place] [facility] [address] [id number], [place] [address]- 6207 Jun, [facility] [place] [facility] [address] [id number], [place] [address]- 0201 Jun, [facility] [place] [facility] [address] [id number] [place] [address]- 0767 May, [facility] [place] [facility] [address] [id number] [place] 1341 May, [facility] [place] [facility] [address] [id number], [place] [address]- 8155 May, [facility] [place] [facility] [address] [id number], [place] [address]- 5978 May, [facility] [place] [facility] [address] [id number] [place] [address]- 7974 May, [facility] [place] [facility] [address] [id number] [place] [address]- 5448 May, [facility] [place] [facility] [address] [id number] [place] [address]- 4082 May, [facility] [place] [facility] [address] [id number] [place] [address]- 7566 May, [facility] [place] [facility] [address] [id number] [place] [address]- 8436 May, [facility] [place] [facility] [address] [id number] [place] [address]- 0874 Apr, [facility] [place] [facility] [address] [id number] [place] [address]- 9124 Apr, [facility] [place] [facility] [address] [id number] [place] [address]- 9625 Mar, [facility] [place] [facility] [address] [id number] [place] [address]- 9342 Mar, [facility] [place] [facility] [address] [id number] [place] [address]- 5639 Mar, [facility] [place] [facility] [address] [id number] [place] [address]- 7200 Mar, [facility] [place] [facility] [address] [id number] [place] [address]- 3943 Mar, [facility] [place] [facility] [address] [id number] [place] [address]- 2007 Mar, [facility] [place] [facility] [address] [id number] [place] [address]- 2069 Mar, [facility] [place] [facility] [address] [id number] [place] [address]- 2031 Mar, [facility] [place] [facility] [address] [id number] [place] [address] 2546 Mar, [facility] [address] [id number] [place] [address]- 5822 Mar, [facility] [address] [id number] [place] [address]- 2546 Mar, [facility] [address] [id number] [place] [address]- 4143 Jan, [facility] [address] [id number] [place] [address]- 6811 Jan, [facility] [address] [id number] [place] [address]- 1657 Jan, [facility] [address] [id number] [place] [address]- 6787 December, [facility] [address] [id number] [place] [address]- 8628 December, [facility] [address] [id number] [place] [address]- 7598 Nov, [facility] [address] [id number] [place] [address]- 4293 Nov, [facility] [address] [id number] [place] [address]- 3822 Oct, [facility] [address] [id number] [place] [address]- 3500 Oct, [facility] [address] [id number] [place] [address]- 8291 Oct, [facility] [place] [facility] [address] [id number] [place] [address]- 9031 Oct, [facility] [address] [id number] [place] [address]- 2546 Oct, [facility] [address] [id number] [place] [address]- 628 Oct, [facility] [address] [id number] [place] [address]- 0904 17 Oct, 2012 [facility] [place] [facility] [address] [id number] [place] [address]- 7985 16 Oct, 2012 [facility] [place] [facility] [address] [id number] [place] [address]- 5102 14 Oct, 2012 [facility] [place] [facility] [address] [id number] [place] [address]- 1477 13 Oct, 2012 [facility] [place] [facility] [address] [id number] [place] [address]- 5701 05 Oct, 2012 [facility] [place] [facility] [address] [id number] [place] [address]- 7429 14 Sep, 2012 [facility] [place] [facility] [address] [id number] [place] [address]- 9751 08 Sep, 2012 [facility] [place] [facility] [address] [id number] [place] [address]- 5193 Aug, [facility] [place] [facility] [address] [id number] [place] [address]- 3941 Aug, [facility] [place] [facility] [address] [id number] [place] [address]- 0629 Aug, [facility] [place] [facility] [address] [id number] [place] [address]- 0329 Aug, [facility] [place] [facility] [address] [id number] [place] [address]- 3656 Aug, [facility] [place] [facility] [address] [id number] [place] [address]- 0458 Jul, [facility] [place] [facility] [address] [id number] [place] [address]- 6796 Jul, [facility] [place] [facility] [address] [id number] [place] [address]- 3747 Jul, [facility] [place] [facility] [address] [id number] [place] [address]- 8214 19 Jul, 2012 [facility] [place] [facility] [address] [id number] [place] [address]- 6556 18 Jul, 2012 [facility] [place] [facility] [address] [id number] [place] [address]- 4386 17 Jul, 2012 [facility] [address] [id number] [place] [address]- 4586 14 Jul, 2012 [facility] [place] [facility] [address] [id number] [place] [address]- 3366 14 Jul, 2012 [facility] [place] [facility] [address] [id number] [place] [address]- 8936 06 Jul, 2012 [facility] [place] [facility] [address] [id number] [place] [address] 06 Jul, 2012 [facility] [address] [id number] [place] [address] 05 Jul, 2012 [facility] [place] [facility] [address] [id number] [place] [address] 05 Jul, 2012 [facility] [place] [facility] [address] [id number] [place] [address] 84[address] Jul, [facility] [place] [facility] [address] [facility] [id number] [place] [address] Jul, [facility] [place] [facility] [address] [id number] [place] [address] Jul, [facility] [place] [facility] [address] [id number] [place] [address] Jul, [facility] [place] [facility] [address] [id number] [place] [address] Jun, [facility] [place] [facility] [address] [id number] [place] [address]- [address] Jun, [facility] [place] [facility] [address] [id number] [place] [address]- [address] Jun, [facility] [place] [facility] [address] [id number] [place] [address] Jun, [facility] [place] [facility] [address] [id number] [place] [address] Jun, [facility] [place] [facility] [address] [id number] [place] [address] 9965 Jun, [facility] [place] [facility] [id number] [place] [address], [place] [address]- [address] Jun, [facility] [place] [facility] [address] [id number] [place] [address] Jun, [facility] [place] [facility] [address] [id number] [place] [address]- [address]65 Jun, [facility] [place] [facility] [address] [id number] [place] [address] May, [facility] [place] [facility] [address] [id number] [place] [address] Mar, [facility] [place] [facility] [address] [id number] [place] [address] Mar, [facility] [place] [facility] [address] [id number] [place] [address]- [address] Mar, [facility] [place] [facility] [address] [id number] [place] [address]- [address] Mar, [facility] [place] [facility] [address] [id number] [place] [address] Jan, [facility] [place] [facility] [address] [id number] [place] [address]- [address] Jan, [facility] [place] [facility] [address] [id number] [place] [address]- [address] Jan, [facility] [place] [facility] [address] [id number] [place] [address] Jan, [facility] [place] [facility] [address] [id number] [place] [address]- 6[address] Jan, [facility] [place] [facility] [address] [id number] [place] [address] 1667 Jan, [facility] [place] [facility] [address] [id number] [place] [address] December, [facility] [place] [facility] [address] [id number] [place] [address] December, [facility] [place] [facility] [address] [id number] [place] [address] Nov, [facility] [place] [facility] [address] [id number] [place] [address] 8[address] Nov, [facility] [place] [facility] [address] [id number] [place] [address] 8824 Oct, [facility] [place] [facility] [address] [id number] [place] [address] Oct, [facility] [place] [facility] [address] [id number] [place] [address] 7[address] Oct, [facility] [place] [facility] [address] [id number] [place] [address]47 Oct, [facility] [place] [facility] [address] [id number] [place] [address] Aug, [facility] [place] [facility] [address] [id number] [place] [address] Aug, [facility] [place] [facility] [address] [id number] [place] [address]- 1668 Jun, [facility] [place] [facility] [address] [id number] [place] [address]- [address] Jun, [facility] [place] [facility] [address] [id number] [place] [address] Jun, [facility] [place] [facility] [address] [id number] [place] [address] Jun, [facility] [place] [facility] [address] [id number] [place] [address] Jun, [facility] [place] [facility] [address] [id number] [place] [address] May, [facility] [place] [facility] [address] [id number] [place] [address] May, [facility] [place] [facility] [address] [id number] [place] [address] May, [facility] [place] [facility] [address] [id number] [place] [address] May, [facility] [place] [facility] [address] [id number] [place] [address] May, [facility] [place] [facility] [address] [id number] [place] [address] May, [facility] [place] [facility] [address] [id number] [place] [address] May, [facility] [place] [facility] [address] [id number] [place] [address] Mar, [facility] [place] [facility] [address] [id number] [place] [address] May, [facility] [place] [facility] [address] [id number] [place] [address] Jan, [facility] [place] [facility] [address] [id number] [place] [address] Jul, [facility] [place] [facility] [address] [id number] [place] [address] Jun, [facility] [place] [facility] [address] [id number] [place] [address] Jun, [facility] [place] [facility] [address] [id number] [place] [address] Jun, [facility] [place] [facility] [address] [id number] [place] [address] Jun, [facility] [address] [facility] [id number], [place] [address] Jun, [facility] [address] [facility] [id number], [place] [address] May, [facility] [address] [facility] [id number], [place] [address] May, [facility] [address] [facility] [id number], [place] [address] May, [facility] [address] [facility] [id number], [place] [address] Jul, IMMUNIZATIONS No Known Immunizations SOCIAL HISTORY Never Assessed REASON FOR VISIT intake PLAN OF CARE Activity Details Follow Up 2 Weeks Reason:Anxiety, social anxiety VITAL SIGNS MEDICATIONS Medication Instructions Dosage Frequency Start Date End Date Duration Status BusPIRone HCl 15 MG Orally 3 times a day 1 tablet 8h Aug, 30 days Unknown Abilify 5 MG Orally Once a day at bedtime 1 tablet 30 days Unknown Glucocard Expression Test 1 subcutaneously 2 times a day test 2 times per day 12h May, 12 months Unknown Flonase 50 MCG/ACT Nasally Once a day 1 spray in each nostril 24h Jul, 30 day(s) Unknown Aspir-81 81 MG Orally Once a day 1 tablet 24h Apr, Jan, 90 days Unknown Atorvastatin Calcium 10 mg Orally Once a day 1 tablet 24h May, 90 days Unknown Lisinopril 2.5 MG Orally Once a day 2 tablets 24h 90 days Unknown Glimepiride 1 MG Orally Once a day 1 tablet with breakfast or the first main meal of the day 24h May, 90 days Unknown Melatonin 5 MG Orally take at bedtime 1 tablet Apr, Unknown Trazodone HCl 100 mg Orally at bedtime as needed for sleep 1 tabs Apr 90 days Unknown Tizanidine HCl 4 MG Orally Three times a day 1 capsule as needed 8h 12 SepOct, 30 days Unknown RESULTS No Results PROCEDURES Procedure Date Ordered Result Body Site Psych diagnostic evaluation, new patient Sep 16, 2017 INSTRUCTIONS MEDICATIONS ADMINISTERED No Known Medications MEDICAL (GENERAL) HISTORY Type Description Date Medical History hypertension Medical History depression (hx of suicidal plan in 2013) Medical History insomnia Medical History bipolar disorder Surgical History Appendix Surgical History Tubal Ligation Hospitalization History Child /surgery Hospitalization History psych inpatient treatment, SI 2011
--- OUTSIDE RECORDS SUMMARY | 2018-02-17 12:13 | XMS REPORT ---
Author Author ALEXANDRU ARACELIS Organization [facility] Address [address] [place] [address] Care Team Providers Care Station Installation Supervisor Name Role Phone JASWANTMARCELLUS ARACELIS Unavailable PROBLEMS Type Condition ICD9-CM Code [id number] Code Onset Dates Condition Status SNOMED Code Problem History of hypertension Z86.79 Active 375945238 Problem Elevated LDL cholesterol level E78.00 Active 429640031 Problem Personality disorder F60.9 Active 89233002 Problem Other chronic pain G89.29 Active 00264962 Problem Hypoglycemia E16.2 Active 533249638 Problem Acute seasonal allergic rhinitis, unspecified trigger J30.2 Active 127204071 Problem Type 2 diabetes mellitus without complication, without long-term current use of insulin E11.9 Active 353747054 Problem Primary insomnia F51.01 Active 0778834 Problem Acute non intractable tension-type headache G44.209 Active 365735814 Problem Generalized anxiety disorder F41.1 Active 51313445 Problem Bipolar disorder in remission F31.70 Active 48031896 Problem Family history of diabetes insipidus Z83.49 Active 717987031 Problem Abnormal CBC R79.89 Active 644489270 Problem Bipolar disorder, current episode mixed, mild F31.61 Active 596629022 Problem History of diabetes mellitus Z86.39 Active 213816015 Problem Overweight (BMI 25.0-29.9) E66.3 Active 876409388 Problem Sore throat J02.9 Active 176693956 ALLERGIES No Information ENCOUNTERS Encounter Location Date Diagnosis [facility] [id number] [address] Jan, Scabies B86 [facility] [address] [id number] [address] Jan, Bipolar disorder, current episode mixed, mild F31.61 and Personality disorder F60.9 [facility] [id number] [place] [address] 71468- 9413 Jan, Cyst of ovary, unspecified laterality N83.209 [place] [address] [address]10[address]- [address]226 December, Cyst of ovary, unspecified laterality N83.209 [place] [id number] [place] [address] 11655- 3396 December, [place] [address] [address]48- 4247 December, Dysuria R30.[address] 485643- 9610 December, [place] [id number] [place] [address] 17006- 9124 Nov, Bipolar disorder, current episode mixed, mild F31.61 and Personality disorder F60.9 [place] [address] 65364- 9848 Nov, Elevated LDL cholesterol level E78.00 and Type 2 diabetes mellitus without complication, without long-term current use of insulin E11.9 [place] [id number] [place] [address] 00719- 5403 Nov, Elevated LDL cholesterol level E78.00 and Type 2 diabetes mellitus without complication, without long-term current use of insulin E11.9 [place] [id number] [place] [address] 57812- 2425 Nov, Other chronic pain G89.29 and Pain in left leg M79.605 [place] [id number] [place] [address] 43694- 2041 Nov, Acute pain of left knee M25.562 ; Syncope, unspecified syncope type R55 and Hypoglycemia E16.2 [place] [address] [place] [address] 11077- 5667 Oct, Syncope, unspecified syncope type R55 [place] [id number] [place] [address] 98580- 5744 27 Oct, 2017 Bipolar disorder, current episode mixed, mild F31.61 and Personality disorder F60.9 [place] [address] [id number]- 101 23 Oct, 2017 Lump of right breast N63.10 [place] [id number] [place] [address] 07816- 8732 Oct, Generalized anxiety disorder F41.1 [place] [address] 76572- 4759 Oct, Generalized anxiety disorder F41.1 ; Bipolar disorder in remission F31.70 ; Bipolar disorder, current episode mixed, mild F31.61 and Primary insomnia F51.01 [place] [id number] [place] [address] 07580- 0893 Oct, Primary insomnia F51.01 and Lump of right breast N63.10 [place] [address] 90781- 0065 16 Oct, 2017 Enteritis K52.9 [facility] [place] [address] 8[address]65 -1774 14 Oct, 2017 Allergic conjunctivitis of both eyes H10.13 and Acute non intractable tension-type headache G44.209 [place] [id number] [place] [address] 41207- 6598 Oct, [place] [address] 17688- 1132 Oct, Bipolar disorder, current episode mixed, mild F31.61 [place] [address] 18841- 4377 22 Sep, 2017 Right flank pain R10.9 and Thoracic spine pain M54.6 [place] [id number] [place] [address] 73315- 5698 16 Sep, 2017 Generalized anxiety disorder F41.1 and Bipolar disorder, current episode mixed, mild F31.61 [place] [id number] [place] [address] 67342- 9911 14 Sep, 2017 [place] [address] 68436- 2107 14 Sep, 2017 Generalized anxiety disorder F41.1 ; Bipolar disorder in remission F31.70 and Personality disorder F60.9 [place] [address] 53484- 2686 12 Sep, 2017 Spasm of thoracic back muscle M62.830 ; Type 2 diabetes mellitus without complication, without long-term current use of insulin E11.9 and Generalized anxiety disorder F41.1 [place] [id number] [place] [address] 65956- 4290 12 Sep, 2017 Bipolar disorder, current episode mixed, mild F31.61 and Personality disorder F60.9 [place] [address] 60845- 9674 Aug, [place] [id number] [place] [address] 09445- 3650 Aug, Bipolar disorder, current episode mixed, mild F31.61 and Personality disorder F60.9 [place] [id number] [place] [address] 24794- 8866 Aug, Type 2 diabetes mellitus without complication, without long- term current use of insulin E11.9 ; Generalized anxiety disorder F41.1 ; Bipolar disorder in remission F31.70 and Overweight (BMI 25.0-29.9) E66.3 [place] [id number] [place] [address] 93930- 5679 Aug, Type 2 diabetes mellitus without complication, without long- term current use of insulin E11.9 ; Elevated LDL cholesterol level E78.00 and Bipolar disorder, current episode mixed, mild F31.61 [facility] [address] [place] [address] 08938 -4383 Jul, Vaginal discharge N89.8 ; Skin irritation R23.8 and Dysuria R30.0 [facility] [id number] [place] [address] 24684 -5044 Jul, Acute seasonal allergic rhinitis, unspecified trigger J30.2 and Chest pain, unspecified type R07.9 [facility] [id number] [place] [address] 08795- 2279 Jun, Bipolar disorder, current episode mixed, mild F31.61 [facility] [address] 57554- 3361 Jun, [place] [address] [place]10[address]- 4095 Jun, Bipolar disorder, current episode mixed, mild F31.61 and Personality disorder F60.9 [facility] [address] 16680- 3263 Jun, [facility] [address] 22011- 4144 Jun, Type 2 diabetes mellitus without complication, without long- term current use of insulin E11.9 and Dysuria R30.0 [place] [id number] [place] [address] 48250- 8425 May, Bipolar disorder, current episode mixed, mild F31.61 ; Personality disorder F60.9 and Homeless Z59.0 [facility] [id number] [place] [address] 53972- 5605 May, Type 2 diabetes mellitus without complication, without long- term current use of insulin E11.9 [place] [id number] [place] [address] 25754- 4444 May, History of hypertension Z86.79 [place] [id number] [place] [address] 75370- 1720 May, [facility] [id number] [place] [address] 63731- 2488 May, Type 2 diabetes mellitus without complication, without long- term current use of insulin E11.9 ; Elevated LDL cholesterol level E78.00 ; Low serum HDL R74.8 and Encounter for immunization Z23 [place] [address] 74996- 9304 26 Apr, 2017 Encounter to establish care Z76.89 ; Abnormal CBC R79.89 ; History of hypertension Z86.79 ; Overweight (BMI 25.0-29.9) E66.3 ; Family history of diabetes insipidus Z83.49 ; Sore throat J02.9 and Tonsillitis with exudate J03.90 [place] [address] 56330- 2509 Apr, Bipolar disorder, current episode mixed, mild F31.61 [place] [address] 46065- 2394 Mar, [place] [address] 04117- 9441 Mar, Bipolar disorder, current episode mixed, mild F31.61 [place] [address] 80528- 6410 Mar, [place] [id number] [place] [address] 91148- 0835 Mar, Bipolar disorder in remission F31.70 [place] [id number] [place] [address] 62159- 8526 Jan, [place] [id number] [place] [address] 99100- 5414 Jan, [place] [id number] [place] [address] 61426- 0649 Oct, Generalized anxiety disorder F41.1 and Bipolar disorder in remission F31.70 [place] [id number] [place] [address] 44610- 3326 Oct, [place] [address] 25264- 2592 Oct, [facility] [address] [address]- 8838 Oct, [facility] [id number] [place] [address] 40724- 3396 Oct, [facility] [address] [address]- 6709 Jul, [facility] [id number] [place] [address] 10226- 5506 Jun, [facility] [address] [place] [address] 36889- 9244 May, 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 and Generalized anxiety disorder F41.1 [facility] [address] [place] [address] 35666- 6456 Jan, [facility] [id number] [place] [address] 99508- 1155 Jan, [facility] [address] [place] [address] 29925- 5631 Jan, 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 and Generalized anxiety disorder F41.1 [facility] [address] [place] [address] 76665- 6988 Sep, [facility] [address] [address]- 4386 Sep, [facility] [address] [address] 9485 Jul, 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 and Generalized anxiety disorder F41.1 [facility] [address] [place] [address] 996870- 4910 Jul, Otalgia of right ear H92.01 [facility] [address] [address]- 3421 Jun, [facility] [id number] [place] [address] 88773- 6364 Mar, [facility] [id number] [address]- 7529 Jan, [facility] [id number] Jan, [facility] [address] 4580 Jan, Bipolar 1 disorder, mixed, moderate 296.62 and SHERRY ( generalized anxiety disorder) 300.02 [facility] [address] [facility] [id number] [place] 8485 Jan, [facility] [id number] [address]- 6916 Nov, [facility] [address] [address]- 4283 Nov, [facility] [id number] [address]- 6577 Oct, [facility] [id number] [address]- 8004 Oct, [facility] [id number] [address]- 1401 Mar, [facility] [address] [address]- 6288 Mar, [facility] [id number] [address]- 7871 Jan, [facility] [address] [facility] [id number] [address]- 1142 Jan, [facility] [id number] 4972 December, [facility] [id number] 3190 December, [facility] [address] [address]- 0361 December, [facility] [place] [facility] [address] [id number] [place] [address]- 5010 December, [facility] [place] [facility] [address] [id number] [place] [address]- 9068 December, [facility] [place] [facility] [address] [id number] [place] [address]- 7931 December, [facility] [place] [facility] [address] [id number] [place] [address]- 7911 December, [facility] [place] [facility] [address] [id number] [place] [address]- 7454 December, [facility] [place] [facility] [address] [id number] [place] [address]- 1587 Nov, [facility] [place] [facility] [address] [id number] [place] [address]- 7673 Nov, [facility] [place] [facility] [address] [id number] [place] [address]- 6607 Oct, [facility] [place] [facility] [address] [id number] [place] [address]- 6990 Oct, [facility] [place] [facility] [address] [id number] [place] [address]- 5277 Oct, [facility] [place] [facility] [address] [id number] [place] [address]- 8620 Oct, [facility] [place] [facility] [address] [id number] [place] [address]- 8828 Oct, [facility] [place] [facility] [address] [id number] [place] [address]- 1902 Sep, [facility] [place] [facility] [address] [id number] [place] [address]- 0173 Sep, [facility] [place] [facility] [address] [id number] [place] [address]- 6194 Sep, [facility] [place] [facility] [address] [id number] [place] [address]- 3691 14 Sep, 2013 [facility] [place] [facility] [address] [id number] [place] [address]- 6891 Aug, [facility] [place] [facility] [address] [id number] [place] [address]- 0005 Aug, [facility] [place] [facility] [address] [id number] [place] [address]- 7696 Aug, [facility] [place] [facility] [address] [id number] [place] [address]- 3183 Aug, [facility] [place] [facility] [address] [id number] [place] [address]- 1700 Aug, [facility] [place] [facility] [address] [id number] [place] [address]- 5319 Jul, [facility] [place] [facility] [address] [id number] [place] [address]- 0613 Jul, [facility] [place] [facility] [address] [id number] [place] [address]- 2812 Jul, [facility] [place] [facility] [address] [id number] [place] [address]- 4411 Jul, [facility] [place] [facility] [address] [id number] [place] [address]- 7570 Jun, [facility] [place] [facility] [address] [id number] [place] [address]- 4895 Jun, [facility] [place] [facility] [address] [id number] [place] [address]- 7239 May, [facility] [place] [facility] [address] [id number] [place] [address]- 9725 May, [facility] [place] [facility] [address] [id number] [place] [address]- 0403 May, [facility] [place] [facility] [address] [id number] [place] [address]- 3729 18 May, 2013 [facility] [place] [facility] [address] [id number] [place] [address]- 7541 15 May, 2013 [facility] [place] [facility] [address] [id number] [place] 9886 15 May, 2013 [facility] [place] [facility] [address] [id number] [place] [address]- 0093 May, [facility] [place] [facility] [address] [id number] [place] [address]- 9938 May, [facility] [place] [facility] [address] [id number] [place] [address]- 0155 May, [facility] [place] [facility] [address] [id number] [place] [address]- 4575 Apr, [facility] [place] [facility] [address] [id number] [place] [address]- 6732 Apr, [facility] [place] [facility] [address] [id number] [place] [address]- 9365 Mar, [facility] [place] [facility] [address] [id number] [place] [address]- 0659 Mar, [facility] [place] [facility] [address] [id number] [place] [address]- 0660 Mar, [facility] [place] [facility] [address] [id number] [place] [address]- 0757 Mar, [facility] [place] [facility] [address] [id number] [address]- 1015 Mar, [facility] [place] [facility] [address] [id number] [place] [address]- 7704 Mar, [facility] [place] [facility] [address] [id number] [place] [address]- 3644 Mar, [facility] [place] [facility] [address] [id number] [place] [address]- 9213 Mar, [facility] [place] [facility] [address] [id number] [place] [address]- 9403 Mar, [facility] [address] [id number] [place] [address]- 0881 Mar, [facility] [address] [id number] [place] [address]- 8481 Mar, [facility] [address] [id number] [place] [address]- 2992 Jan, [facility] [address] [id number] [place] [address]- 5367 Jan, [facility] [address] [id number] [place] [address]- 9381 Jan, [facility] [address] [id number] [place] [address]- 6606 December, [facility] [address] [id number] [place] [address]- 4711 December, [facility] [address] [id number] [place] [address]- 9306 Nov, [facility] [address] [id number] [place] [address]- 5057 Nov, [facility] [address] [id number] [place] [address]- 3468 Oct, [facility] [address] [id number] [place] [address]- 1487 Oct, [facility] [address] [id number] [place] [address]- 5950 Oct, [facility] [address] [id number] [place] [address]- 6430 Oct, [facility] [address] [id number] [place] [address]- 3924 Oct, [facility] [address] [id number] [place] [address]- 0176 Oct, [facility] [address] [id number] [place] [address]- 0713 17 Oct, 2012 [facility] [place] [facility] [address] [id number] [place] [address]- 0574 16 Oct, 2012 [facility] [place] [facility] [address] [id number] [place] [address]- 1511 14 Oct, 2012 [facility] [place] [facility] [address] [id number] [place] [address]- 5747 13 Oct, 2012 [facility] [address] [id number] [place] [address]- 9900 05 Oct, 2012 [facility] [place] [facility] [address] [id number] [place] [address]- 1371 14 Sep, 2012 [facility] [address] [id number] [place] [address]- 2943 08 Sep, 2012 [facility] [address] [id number] [place] [address]- 2107 Aug, [facility] [place] [facility] [address] [id number] [place] [address]- 6683 Aug, [facility] [address] [id number] [place] [address]- 8826 Aug, [facility] [place] [facility] [address] [id number] [place] [address]- 0841 Aug, [facility] [place] [facility] [address] [id number], [place] [address]- 3461 Aug, [facility] [place] [facility] [address] [id number] [place] [address]- 1316 Jul, [facility] [place] [facility] [address] [id number] [place] [address]- 0406 Jul, [facility] [place] [facility] [address] [id number] [place] [address]- 8911 Jul, [facility] [place] [facility] [address] [id number], [place] [address]- 5448 19 Jul, 2012 [facility] [address] [id number] [place] [address]- 2611 18 Jul, 2012 [facility] [place] [facility] [address] [id number] [place] [address]- 5546 17 Jul, 2012 [facility] [place] [facility] [address] [facility] [id number] [place] [address]- 8526 14 Jul, 2012 [facility] [place] [facility] [address] [id number] [place] [address]- 2303 14 Jul, 2012 [facility] [place] [facility] [address] [id number] [place] 8014 06 Jul, 2012 [facility] [place] [facility] [address] [id number] [place] [address]- 6956 Jul, [facility] [address] [address]- 4113 05 Jul, 2012 [facility] [place] [facility] [address] [id number] [place] [address] Jul, [facility] [place] [facility] [address] [id number] [place] [address] Jul, [facility] [place] [facility] [address] [facility] [id number] [place] [address] Jul, [facility] [place] [facility] [address] [facility] [id number] [place] [address] Jul, [facility] [place] [facility] [address] [id number] [address] Jul, [facility] [place] [facility] [address] [id number] [place] [address] Jun, [facility] [place] [facility] [address] [facility] [id number] [place] [address] Jun, [facility] [place] [facility] [address] [id number] [place] [address] Jun, [facility] [place] [facility] [address] [id number] [place] [address] Jun, [facility] [place] [facility] [address] [id number] [place] [address] Jun, [facility] [place] [facility] [address] [id number] [place] [address] Jun, [facility] [place] [facility] [address] [id number] [place] [address] Jun, [facility] [place] [facility] [address] [id number] [place] [address] Jun, [facility] [place] [facility] [address] [id number] [place] [address] Jun, [facility] [place] [facility] [address] [id number] [place] [address] May, [facility] [place] [facility] [address] [id number] [place] [address] Mar, [facility] [place] [facility] [address] [id number] [place] [address] Mar, [facility] [place] [facility] [address] [id number] [place] [address] Mar, [facility] [place] [facility] [address] [id number] [place] [address] Mar, [facility] [place] [facility] [address] [id number] [place] [address] Jan, [facility] [place] [facility] [address] [id number] [place] [address] Jan, [facility] [place] [facility] [address] [id number] [place] [address] Jan, [facility] [place] [facility] [address] [id number] [place] [address] Jan, [facility] [place] [facility] [address] [id number] [place] [address] Jan, [facility] [place] [facility] [address] [id number] [place] [address] Jan, [facility] [place] [facility] [address] [id number] [place] [address] 84[address] December, [facility] [place] [facility] [address] [id number] [place] [address] December, [facility] [place] [facility] [address] [id number] [place] [address] Nov, [facility] [place] [facility] [address] [id number] [place] [address] Nov, [facility] [place] [facility] [address] [id number] [place] [address] Oct, [facility] [place] [facility] [address] [id number] [place] [address] Oct, [facility] [place] [facility] [address] [id number] [place] [address] Oct, [facility] [place] [facility] [address] [id number] [place] [address] Oct, [facility] [place] [facility] [address] [id number] [place] [address] Aug, [facility] [place] [facility] [address] [id number], [place] [address] Aug, [facility] [place] [facility] [address] [id number], [place] [address] Jun, [facility] [place] [facility] [address] [id number] [place] [address] Jun, [facility] [place] [facility] [address] [id number] [place] [address] Jun, [facility] [place] [facility] [address] [id number] [place] [address] Jun, [facility] [place] [facility] [address] [id number] [place] [address] Jun, [facility] [place] [facility] [address] [id number] [place] [address] May, [facility] [place] [facility] [address] [id number] [place] [address] May, [facility] [place] [facility] [address] [id number] [place] [address] May, [facility] [place] [facility] [address] [id number] [place] [address] May, [facility] [place] [facility] [address] [id number] [place] [address] May, [facility] [place] [facility] [address] [id number] [place] [address] May, [facility] [place] [facility] [address] [id number] [place] [address] May, [facility] [place] [facility] [address] [id number] [place] [address] Mar, [facility] [place] [facility] [address] [id number] [place] [address] May, [facility] [place] [facility] [address] [id number] [place] [address] Jan, [facility] [place] [facility] [address] [id number] [place] [address] Jul, [facility] [place] [facility] [address] [id number] [place] [address] Jun, [facility] [place] [facility] [address] [id number] [place] [address] Jun, [facility] [place] [facility] [address] [id number] [place] [address] Jun, [facility] [place] [facility] [address] [id number] [place] [address] Jun, [facility] [address] [id number] [address] Jun, [facility] [id number] [address] May, [facility] [id number] [address] May, [facility] [id number] [address] May, [facility] [address] [id number] [address] Jul, IMMUNIZATIONS No Known Immunizations SOCIAL HISTORY Never Assessed REASON FOR VISIT medication PLAN OF CARE VITAL SIGNS MEDICATIONS No Known Medications RESULTS No Results PROCEDURES No Known [...]
--- NOTE | 2018-02-17 12:24 | ED Abdominal Pain ---
General Chief Complaint: Abdominal/GI Problems Stated Complaint: ABD PAIN,VOMITING Source of Information: Patient Exam Limitations: Language Barrier (sales and marketing analyst line was used.) History of Present Illness Date Seen by Provider: Feb 17, 2018 Time Seen by Provider: 12:22 Initial Comments Patient is a 43-year-old female who presents to the emergency room with 2 episodes of coffee-ground emesis. She reports that yesterday evening she had her first episode and she also had a episode early this morning she reports generalized abdominal pain with this. Denies any constipation, diarrhea, or urinary symptoms Timing/Duration: 1 Day Location: Generalized Abdomen Radiation: No Radiation Activities at Onset: None Modifying Factors: Worsens With Eating Associated Symptoms: No Back Pain, No Chest Pain, No Diaphoresis, No Fever/ Chills; Nausea/Vomiting; No Swelling/Mass in Abdomen Allergies and Home Medications Allergies Coded Allergies: ciprofloxacin (Verified Allergy, 06/05/11) ciprofloxacin HCl (Verified Allergy, 06/05/11) olanzapine (Unverified Adverse Reaction, Mild, rash, 01/15/12) Home Medications Doxycycline Hyclate 100 Mg Tablet, 100 MG PO BID Prescribed by: KAVON MEYERS on 01/27/18 171 Fluoxetine Hcl 20 Mg Capsule, 1 EACH PO DAILY, (Reported) Ibuprofen 600 Mg Tablet, 600 MG PO Q6H PRN for PAIN Prescribed by: KAVON MEYERS on 11/12/13151 Lamotrigine 25 Mg Tab, 25 MG PO DAILY, (Reported) Metformin Hcl 500 Mg Tab.sr.24h, 2 EACH PO BID WITH MEALS, (Reported) Ondansetron HCl 4 Mg Tab, 4 MG PO Q4H PRN for nausea and vomiting Prescribed by: PEYMAN SANDERS on 02/17/181522 Pantoprazole Sodium 20 Mg Tablet.dr, 20 MG PO DAILY Prescribed by: PEYMAN SANDERS on 02/17/181522 Polyethylene Glycol 17 Gm Pack, 17 GM PO DAILY PRN for CONSTIPATION 1-2 times daily FOR CONSTIPATION Prescribed by: KAVON MEYERS on 11/12/13151 Quetiapine Fumarate 25 Mg Tablet, 3 TAB PO HS, (Reported) Sulfamethoxazole/Trimethoprim 1 Each Tablet, 1 EACH PO BID Prescribed by: PEYMAN SANDERS on 02/17/18 152 Patient Home Medication List Home Medication List Reviewed: Yes Review of Systems Constitutional: see HPI; No dizziness, No fever, No malaise EENTM: See HPI; No Blurred Vision, No Double Vision, No Eye Pain Respiratory: See HPI; Denies Cough, Denies Orthopnea, Denies Shortness of Air Cardiovascular: See HPI; Denies Chest Pain, Denies Edema, Denies Irregular Heart Rate Gastrointestinal: See HPI; Denies Abdomen Distended, Denies Abdominal Pain; Nausea, Vomiting (coffee-ground emesis.) Genitourinary: See HPI; Denies Frequency, Denies Pain, Denies Urgency Musculoskeletal: see HPI; No back pain, No gout, No joint pain Skin: see HPI; No change in color, No change in hair/nails Psychiatric/Neurological: See HPI; Denies Anxiety, Denies Depressed Endocrine: See HPI; Denies Excessive Sweating, Denies Flushing, Denies Intolerance to Cold Hematologic/Lymphatic: See HPI; Denies Anemia, Denies Blood Clots All Other Systems Reviewed Negative Unless Noted: Yes Past [id number]-[id number] Hx Past Med/Social Hx: Reviewed Nursing Past Med/Soc Hx Patient Social History 2nd Hand Smoke Exposure: No Recent Foreign Travel: No Contact w/Someone Who Travel: No Immunizations Up To Date Date of Influenza Vaccine: Jul 03, 2013 Past Medical History Surgeries: Yes Appendectomy, Tubal Ligation Respiratory: No Cardiac: No Neurological: No Reproductive Disorders: No (STATES MENSES EVERY MONTH , NONE IN SEP) Genitourinary: No Gastrointestinal: No Musculoskeletal: No Endocrine: No Diabetes, Non-Insulin dep HEENT: No Cancer: No Psychosocial: Yes Sleep Difficulties, Anxiety, Depression Family Medical History Reviewed Nursing Family Hx Physical Exam Vital Signs Vital Signs - First Documented 02/17/18 02/17/18 12:06 15:59 Temp 98.1 Pulse 98 Resp 18 B/P (MAP) 113/90 (98) Pulse Ox 96 O2 Delivery Room Air Capillary Refill : Height/Weight/BMI Height: 5'2.00" Weight: 158lbs. 0oz. 71.092947sr; BMI Method:Stated General Appearance: WD/WN, no apparent distress HEENT: PERRL/EOMI, normal ENT inspection, TMs normal, pharynx normal Neck: non-tender, full range of motion, supple Respiratory: chest non-tender, lungs clear, normal breath sounds Cardiovascular: regular rate, rhythm, no edema, no gallop Gastrointestinal: normal bowel sounds, non tender, soft, no organomegaly, no pulsatile mass Extremities: normal range of motion, non-tender, normal inspection, no pedal edema, no calf tenderness Back: normal inspection, no CVA tenderness, no vertebral tenderness 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: alert, normal mood/affect, oriented x 3 Skin: normal color, warm/dry Lymphatic: no adenopathy Progress/Results/Core Measures Results/Orders Lab Results Laboratory Tests Test 02/17/18 12:20 Range/Units White Blood Count 14.4 H 4.3-11.0 10^3/uL Red Blood Count 4.17 L 4.35-5.85 10^6/uL Hemoglobin 12.2 11.5-16.0 G/DL Hematocrit 36 35-52 % Mean Corpuscular Volume 85 80-99 FL Mean Corpuscular Hemoglobin 29 25-34 PG Mean Corpuscular Hemoglobin Concent 34 32-36 G/DL Red Cell Distribution Width 13.2 10.0-14.5 % Platelet Count 509 H 130-400 10^3/uL Mean Platelet Volume 11.4 H 7.4-10.4 FL Neutrophils (%) (Auto) 70 42-75 % Lymphocytes (%) (Auto) 24 12-44 % Monocytes (%) (Auto) 5 0-12 % Eosinophils (%) (Auto) 1 0-10 % Basophils (%) (Auto) 0 0-10 % Neutrophils # (Auto) 10.1 H 1.8-7.8 X 10^3 Lymphocytes # (Auto) 3.5 1.0-4.0 X 10^3 Monocytes # (Auto) 0.7 0.0-1.0 X 10^3 Eosinophils # (Auto) 0.1 0.0-0.3 10^3/uL Basophils # (Auto) 0.1 0.0-0.1 10^3/uL Neutrophils % (Manual) 68 % Lymphocytes % (Manual) 19 % Monocytes % (Manual) 4 % Eosinophils % (Manual) 0 % Basophils % (Manual) 1 % Band Neutrophils 1 % Reactive Lymphocytes 7 % Rouleau MOD Urine Color YELLOW Urine Clarity CLEAR Urine pH 6 5-9 Urine Specific [place] 1.025 H 1.016-1.022 Urine Protein 1+ H NEGATIVE Urine Glucose (UA) NEGATIVE NEGATIVE Urine Ketones NEGATIVE NEGATIVE Urine Nitrite NEGATIVE NEGATIVE Urine Bilirubin NEGATIVE NEGATIVE Urine Urobilinogen NORMAL NORMAL MG/DL Urine Leukocyte Esterase 1+ H NEGATIVE Urine RBC (Auto) NEGATIVE NEGATIVE Urine RBC NONE /HPF Urine WBC 2-5 /HPF Urine Squamous Epithelial Cells 25-50 H /HPF Urine Renal Epithelial Cells NONE /HPF Urine Crystals NONE /LPF Urine Bacteria FEW H /HPF Urine Casts NONE /LPF Urine Mucus SMALL H /LPF Urine Culture Indicated NO Sodium Level 137 135-145 MMOL/L Potassium Level 3.6 3.6-5.0 MMOL/L Chloride Level 103 98-107 MMOL/L Carbon Dioxide Level 27 21-32 MMOL/L Anion Gap 7 5-14 MMOL/L Blood Urea Nitrogen 12 7-18 MG/DL Creatinine 0.81 0.60-1.30 MG/DL Estimat Glomerular Filtration Rate > 60 BUN/Creatinine Ratio 15 Glucose Level 144 H 70-105 MG/DL Calcium Level 9.2 8.5-10.1 MG/DL Total Bilirubin 0.2 0.1-1.0 MG/DL Aspartate Amino Transf (AST/SGOT) 24 5-34 U/L Alanine Aminotransferase (ALT/SGPT) 25 0-55 U/L Alkaline Phosphatase 73 40-136 U/L Total Protein 7.8 6.4-8.2 GM/DL Albumin 4.1 3.2-4.5 GM/DL Amylase Level 18 L 25-125 U/L Lipase 14 8-78 U/L My Orders Orders - BERNOT,PEYMAN Fentanyl Injection (Sublimaze Injection (02/17/18 12:45) Ns Iv 1000 Ml (Sodium Chloride 0.9%) (02/17/18 12:45) Ondansetron Injection (Zofran Injectio (02/17/18 12:45) Ct Abdomen/Pelvis W (02/17/18 12:39) Lorazepam Injection (Ativan Injection) (02/17/18 13:00) Comprehensive Metabolic Panel (02/17/18 14:17) Lipase (02/17/18 14:17) Amylase (02/17/18 14:17) Ua Culture If Indicated (02/17/18 14:17) Saline Lock/Iv-Start (02/17/18 14:17) Cbc With Automated Diff (02/17/18 14:17) Manual Differential (02/17/18 12:20) Ceftriaxone Injection (Rocephin Injectio (02/17/18 15:15) Medications Given in ED Vital Signs/I&O 02/17/18 02/17/18 12:06 15:59 Temp 98.1 98.1 Pulse 98 98 Resp 18 B/P (MAP) 113/90 (98) 113/90 (98) Pulse Ox 96 96 O2 Delivery Room Air Progress Progress Note : Progress Note I informed the patient going to do a CT scan of her abdomen and she reports that she becomes very anxious when she has to go in those machines. Ativan has been ordered. Departure Impression Primary Impression: Nausea and vomiting Additional Impressions: Urinary tract infection Vomiting blood Disposition: HOME, SELF-CARE Condition: Stable/Unchanged Departure-Patient Inst. Referrals: ALINA MARIN DO (PCP) Primary Care Physician JOSESITO LUKE (Family) Primary Care Physician Patient Instructions: Acute Abdomen (Belly Pain), Adult (DC), Urinary Tract Infection, Adult (DC) Add. Discharge Instructions: Take Medications as directed. I have set up an appointment for follow-up with Dr. HOWELL at 3:30 on 02/22/18. Return back to the emergency room for any increase in vomiting blood, nausea, diarrhea. Increase your fluid intake. Keep your appointment with Dr. HOWELL as scheduled. Follow-up with [facility] within 1 week for a recheck. All discharge instructions reviewed with patient and/or family. Voiced understanding. Scripts Sulfamethoxazole/Trimethoprim (Bactrim Ds Tablet) 1 Each Tablet 1 EACH PO BID for 7 Days, #14 TAB Prov: PEYMAN SANDERS 02/17/18 Ondansetron HCl (Zofran) 4 Mg Tab 4 MG PO Q4H PRN for nausea and vomiting for 7 Days, #14 TAB Prov: PEYMAN SANDERS 02/17/18 Pantoprazole Sodium (Protonix) 20 Mg Tablet. 20 MG PO DAILY for 7 Days, #7 TAB Prov: PEYMAN SANDERS 02/17/18 PEYMAN SANDERS Feb 17, 2018 12:24
--- OUTSIDE RECORDS SUMMARY | 2018-02-17 12:27 | XMS REPORT | Continuity of Care Document ---
[facility] Phone Unavailable Allergies Active Description Code Type Severity Reaction Onset Reported/Identified Relationship to Patient Clinical Status Yes ciprofloxacin Drug N/A N/A Yes ZyPREXA Drug N/A N /A Yes ciprofloxacin Drug Allergy N/ A N/A 12/05/2008 Yes ciprofloxacin Drug Allergy 12/05/2008 Yes Zyprexa Drug Allergy N/A N/A 04/02/2009 Yes Zyprexa Drug Allergy 04/02/2009 Yes ciprofloxacin [id number] Drug Allergy Unknown N/A 06/05/2011 Yes ciprofloxacin HCl [id number] Drug Allergy Unknown N/A 06/05/2011 Yes olanzapine [id number] Drug Allergy Mild rash 01/15/2012 Yes CIPROFLOXACIN 97264 DRUG INGREDI N/A Itching 07/11/2013 Yes OLANZAPINE 01646 DRUG INGREDI N /A Itching 07/11/2013 Yes HYDROCODONE-ACETAMINOPHEN 41063 DRUG Low Itching~Rash 09/06/2016 09/06/2016 Medications Medication Packaging Start Date Stop Date Route Dosage Sig CEFTRIAXONE SODIUM 250 MG IJ SOLR 10/02/2015 Intravenous 250 ONCE ONDANSETRON HCL 4 MG/2ML IJ SOLN 11/07/2015 Intravenous 4 ONCE SODIUM CHLORIDE 0.9 % IV BOLUS 11/07/2015 Intravenous 1000 BOLUS KETOROLAC TROMETHAMINE 30 MG/ML IJ SOLN 06/07/2016 06/12/2016 Intravenous 30 ONCE METOCLOPRAMIDE HCL 5 MG/ML IJ SOLN 06/07/2016 Intravenous 10 ONCE DIPHENHYDRAMINE HCL 50 MG/ML IJ SOLN 06/07/2016 Intravenous 25 ONCE SODIUM CHLORIDE 0.9 % IV BOLUS 06/08/2016 Intravenous 1000 BOLUS amoxicillin 08/15/2016 08/22/2016 PO 500 mg / 1 cap benzonatate 08/15/2016 08/22/2016 PO 200 mg / 1 cap DIPHENHYDRAMINE HCL 25 MG PO CAPS 09/06/2016 Oral 25 ONCE Problems Date Dx Coded Attending Type Code Diagnosis Diagnosed By 03/01/2008 308.3 An Acute Stress Disorder 03/01/2008 ONEAL CROCKETT DO F 308.3 An Acute Stress Disorder 03/01/2008 ONEAL CROCKETT DO F 308.3 An Acute Stress Disorder 03/01/2008 308.3 An Acute Stress Disorder 03/01/2008 TANIA HORTON ALINA K 308.3 An Acute Stress Disorder 03/01/2008 AARON MARIN DOA K 308.3 An Acute Stress Disorder 03/01/2008 308.3 An Acute Stress Disorder 03/01/2008 JOSESITO LUKE APRN S 308.3 An Acute Stress Disorder 03/01/2008 308.3 An Acute Stress Disorder 03/01/2008 308.3 An Acute Stress Disorder 03/01/2008 ONEAL CROCKETT DO F 308.3 An Acute Stress Disorder 03/01/2008 JOSESITO LUKE APRN S 308.3 An Acute Stress Disorder 03/01/2008 MAXIMINO KHANNA MD 308.3 An Acute Stress Disorder 03/01/2008 ALINA MARIN DO K 308.3 An Acute Stress Disorder 03/01/2008 JOSESITO LUKE APRN S 308.3 An Acute Stress Disorder 03/01/2008 MARLENE GILLIAM APRN 308.3 An Acute Stress Disorder 03/01/2008 JOSESITO LUKE APRN S 308.3 An Acute Stress Disorder 03/13/2008 311 Mo Depressive Disorder Nos 03/13/2008 ONEAL CROCKETT DO F 311 Mo Depressive Disorder Nos 03/13/2008 ONEAL CROCKETT DO F 311 Mo Depressive Disorder Nos 03/13/2008 311 Mo Depressive Disorder Nos 03/13/2008 AARON MARNI DOA K 311 Mo Depressive Disorder Nos 03/13/2008 AARON MARIN DOA K 311 Mo Depressive Disorder Nos 03/13/2008 311 Mo Depressive Disorder Nos 03/13/2008 JUAN RAMON LUKE APRNA S 311 Mo Depressive Disorder Nos 03/13/2008 311 Mo Depressive Disorder Nos 03/13/2008 311 Mo Depressive Disorder Nos 03/13/2008 ONEAL CROCKETT DO F 311 Mo Depressive Disorder Nos 03/13/2008 JUAN RAMON LUKE APRNA S 311 Mo Depressive Disorder Nos 03/13/2008 MAXIMINO KHANNA MD 311 Mo Depressive Disorder Nos 03/13/2008 ALINA MARIN DO K 311 Mo Depressive Disorder Nos 03/13/2008 JOSESITO LUKE APRN S 311 Mo Depressive Disorder Nos 03/13/2008 TAWANA ONEILL MARLENE SANDERSON 311 Mo Depressive Disorder Nos 03/13/2008 JOSESITO LUKE APRN S 311 Mo Depressive Disorder Nos 03/15/2008 V58.69 Medication High Risk 03/15/2008 ONEAL CROCKETT DO F V58.69 Medication High Risk 03/15/2008 ONEAL CROCKETT DO F V58.69 Medication High Risk 03/15/2008 V58.69 Medication High Risk 03/15/2008 TANIA HORTON ALINA K V58.69 Medication High Risk 03/15/2008 AARON MARIN DOA K V58.69 Medication High Risk 03/15/2008 V58.69 Medication High Risk 03/15/2008 JOSESITO LUKE APRN S V58.69 Medication High Risk 03/15/2008 V58.69 Medication High Risk 03/15/2008 V58.69 Medication High Risk 03/15/2008 ONEAL CROCKETT DO F V58.69 Medication High Risk 03/15/2008 JOSESITO LUKE APRN S V58.69 Medication High Risk 03/15/2008 MAXIMINO KHANNA MD V58.69 Medication High Risk 03/15/2008 ALINA MARIN DO K V58.69 Medication High Risk 03/15/2008 JOSESITO LUKE APRN S V58.69 Medication High Risk 03/15/2008 TAWANA ONEILL MARLENE SANDERSON V58.69 Medication High Risk 03/15/2008 JOSESITO LUKE APRN S V58.69 Medication High Risk 04/06/2008 477.0 Allergic Rhinitis Due To Pollen 04/06/2008 708.9 Urticaria/ hives Unspec 04/06/2008 ONEAL CROKCETT DO F 477.0 Allergic Rhinitis Due To Pollen 04/06/2008 OENAL CROCKETT DO F 708.9 Urticaria/hives Unspec 04/06/2008 ONEAL CROCKETT DO F 477.0 Allergic Rhinitis Due To Pollen 04/06/2008 ONEAL CROCKETT DO F 708.9 Urticaria/hives Unspec 04/06/2008 477.0 Allergic Rhinitis Due To Pollen 04/06/2008 708.9 Urticaria/ hives Unspec 04/06/2008 MARIN DO, ALINA K 477.0 Allergic Rhinitis Due To Pollen 04/06/2008 MARIN DO, ALINA K 708.9 Urticaria/hives Unspec 04/06/2008 MARIN DO, ALINA K 477.0 Allergic Rhinitis Due To Pollen 04/06/2008 MARIN DO, ALINA K 708.9 Urticaria/hives Unspec 04/06/2008 477.0 Allergic Rhinitis Due To Pollen 04/06/2008 708.9 Urticaria/ hives Unspec 04/06/2008 JOSESITO LUKE APRN S 477.0 Allergic Rhinitis Due To Pollen 04/06/2008 JOSESITO LUKE APRN S 708.9 Urticaria/hives Unspec 04/06/2008 477.0 Allergic Rhinitis Due To Pollen 04/06/2008 708.9 Urticaria/ hives Unspec 04/06/2008 477.0 Allergic Rhinitis Due To Pollen 04/06/2008 708.9 Urticaria/ hives Unspec 04/06/2008 ONEAL CROCKETT DO F 477.0 Allergic Rhinitis Due To Pollen 04/06/2008 ONEAL CROCKETT DO F 708.9 Urticaria/hives Unspec 04/06/2008 JOSESITO LUKE APRN S 477.0 Allergic Rhinitis Due To Pollen 04/06/2008 JOSESITO LUKE APRN S 708.9 Urticaria/hives Unspec 04/06/2008 MAXIMINO KHANNA MD 477.0 Allergic Rhinitis Due To Pollen 04/06/2008 MAXIMINO KHANNA MD 708.9 Urticaria/hives Unspec 04/06/2008 MARIN DO, ALINA K 477.0 Allergic Rhinitis Due To Pollen 04/06/2008 MARIN DO, ALINA K 708.9 Urticaria/hives Unspec 04/06/2008 JOSESITO LUKE APRN S 477.0 Allergic Rhinitis Due To Pollen 04/06/2008 JUAN RAMON LUKE APRNA S 708.9 Urticaria/hives Unspec 04/06/2008 MARLENE GILLIAM APRN 477.0 Allergic Rhinitis Due To Pollen 04/06/2008 MARLENE GILLIAM APRN 708.9 Urticaria/hives Unspec 04/06/2008 JOSESITO LUKE APRN 477.0 Allergic Rhinitis Due To Pollen 04/06/2008 JOSESITO LUKE APRN 708.9 Urticaria/hives Unspec 05/08/2008 463 Tonsillitis Acute 05/08/2008 ONEAL CROCKETT DO 463 Tonsillitis Acute 05/08/2008 ONEAL CROCKETT DO 463 Tonsillitis Acute 05/08/2008 463 Tonsillitis Acute 05/08/2008 ALINA MARIN DO K 463 Tonsillitis Acute 05/08/2008 ALINA MARIN DO K 463 Tonsillitis Acute 05/08/2008 463 Tonsillitis Acute 05/08/2008 JOSESITO LUKE APRN 463 Tonsillitis Acute 05/08/2008 463 Tonsillitis Acute 05/08/2008 463 Tonsillitis Acute 05/08/2008 ONEAL CROCKETT DO 463 Tonsillitis Acute 05/08/2008 JOSESITO LUKE APRN 463 Tonsillitis Acute 05/08/2008 MAXIMINO KHANNA MD 463 Tonsillitis Acute 05/08/2008 ALINA MARIN DO K 463 Tonsillitis Acute 05/08/2008 JOSESITO LUKE APRN 463 Tonsillitis Acute 05/08/2008 MARLENE GILLIAM APRN 463 Tonsillitis Acute 05/08/2008 JOSESITO LUKE APRN 463 Tonsillitis Acute 05/09/2008 300.00 AN ANXIETY UNSPEC 05/09/2008 ONEAL CROCKETT DO 300.00 AN ANXIETY UNSPEC 05/09/2008 ONEAL CROCKETT DO 300.00 AN ANXIETY UNSPEC 05/09/2008 300.00 AN ANXIETY UNSPEC 05/09/2008 ALINA MARIN DO K 300.00 AN ANXIETY UNSPEC 05/09/2008 ALINA MARIN DO K 300.00 AN ANXIETY UNSPEC 05/09/2008 300.00 AN ANXIETY UNSPEC 05/09/2008 JOSESITO LUKE APRN 300.00 AN ANXIETY UNSPEC 05/09/2008 300.00 AN ANXIETY UNSPEC 05/09/2008 300.00 AN ANXIETY UNSPEC 05/09/2008 ONEAL CROCKETT DO 300.00 AN ANXIETY UNSPEC 05/09/2008 JOSESITO LUKE APRN S 300.00 AN ANXIETY UNSPEC 05/09/2008 MAXIMINO KHANNA MD 300.00 AN ANXIETY UNSPEC 05/09/2008 MARIN DO, ALINA K 300.00 AN ANXIETY UNSPEC 05/09/2008 JUAN RAMON LUKE APRNA S 300.00 AN ANXIETY UNSPEC 05/09/2008 TAWANA ONEILL MARLENE SANDERSON 300.00 AN ANXIETY UNSPEC 05/09/2008 JOSESITO LUKE APRN S 300.00 AN ANXIETY UNSPEC 06/30/2008 724.5 Backache Unspecified 06/30/2008 ONEAL CROCKETT DO F 724.5 Backache Unspecified 06/30/2008 ONEAL CROCKETT DO F 724.5 Backache Unspecified 06/30/2008 724.5 Backache Unspecified 06/30/2008 MARIN DOAARONA K 724.5 Backache Unspecified 06/30/2008 MARIN DOAARONA K 724.5 Backache Unspecified 06/30/2008 724.5 Backache Unspecified 06/30/2008 JUAN RAMON LUKE APRNA S 724.5 Backache Unspecified 06/30/2008 724.5 Backache Unspecified 06/30/2008 724.5 Backache Unspecified 06/30/2008 ONEAL CROCKETT DO F 724.5 Backache Unspecified 06/30/2008 JUAN RAMON LUKE APRNA S 724.5 Backache Unspecified 06/30/2008 MAXIMINO KHANNA MD 724.5 Backache Unspecified 06/30/2008 MARIN DOALINA K 724.5 Backache Unspecified 06/30/2008 JUAN RAMON LUKE APRNA S 724.5 Backache Unspecified 06/30/2008 TAWANA ONEILL MARLENE SANDERSON 724.5 Backache Unspecified 06/30/2008 JUAN RAMON LUKE APRNA S 724.5 Backache Unspecified 12/05/2008 307.40 Insomnia 12/05/2008 401.1 HYPERTENSION, BENIGN ESSENTIAL 12/05/2008 ONEAL CROCKETT DO F 307.40 Insomnia 12/05/2008 ONEAL CROCKETT DO F 401.1 HYPERTENSION, BENIGN ESSENTIAL 12/05/2008 ONEAL CROCKETT DO F 307.40 Insomnia 12/05/2008 ONEAL CROCKETT DO 401.1 HYPERTENSION, BENIGN ESSENTIAL 12/05/2008 307.40 Insomnia 12/05/2008 401.1 HYPERTENSION, BENIGN ESSENTIAL 12/05/2008 MARIN DO, ALINA K 307.40 Insomnia 12/05/2008 MARIN DO, ALINA K 401.1 HYPERTENSION, BENIGN ESSENTIAL 12/05/2008 MARIN DO, ALINA K 307.40 Insomnia 12/05/2008 MARIN DO, ALINA K 401.1 HYPERTENSION, BENIGN ESSENTIAL 12/05/2008 307.40 Insomnia 12/05/2008 401.1 HYPERTENSION, BENIGN ESSENTIAL 12/05/2008 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, 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 307.40 Insomnia 12/05/2008 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, 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 401.1 HYPERTENSION, BENIGN ESSENTIAL 12/05/2008 307.40 Insomnia 12/05/2008 401.1 HYPERTENSION, BENIGN ESSENTIAL 12/05/2008 307.40 Insomnia 12/05/2008 401.1 HYPERTENSION, BENIGN ESSENTIAL 12/05/2008 ONEAL CROCKETT DO 307.40 Insomnia 12/05/2008 ONEAL CROCKETT DO 401.1 HYPERTENSION, BENIGN ESSENTIAL 12/05/2008 TI ONEILL, JOSESITO S 307.40 Insomnia 12/05/2008 TI ONEILL, JOSESITO S 401.1 HYPERTENSION, BENIGN ESSENTIAL 12/05/2008 MAXIMINO KHANNA MD 307.40 Insomnia 12/05/2008 MAXIMINO KHANNA MD 401.1 HYPERTENSION, BENIGN ESSENTIAL 12/05/2008 MARIN DO, ALINA K 307.40 Insomnia 12/05/2008 MARIN DO, ALINA K 401.1 HYPERTENSION, BENIGN ESSENTIAL 12/05/2008 TI ONEILL, JOSESITO S 307.40 Insomnia 12/05/2008 TI ONEILL, JOSESITO S 401.1 HYPERTENSION, BENIGN ESSENTIAL 12/05/2008 MARLENE GILLIAM APRN 307.40 Insomnia 12/05/2008 MARLENE GILLIAM APRN 401.1 HYPERTENSION, BENIGN ESSENTIAL 12/05/2008 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, 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 307.40 Insomnia 12/05/2008 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, 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 401.1 HYPERTENSION, BENIGN ESSENTIAL 01/06/2009 535.50 Gastritis Unspec 01/06/2009 789.00 Abdominal Pain Unspecified Site 01/06/2009 ONEAL CROCKETT DO F 535.50 Gastritis Unspec 01/06/2009 ONEAL CROCKETT DO 789.00 Abdominal Pain Unspecified Site 01/06/2009 DANIAMANUEL DO ONEAL F 535.50 Gastritis Unspec 01/06/2009 ONEAL CROCKETT DO 789.00 Abdominal Pain Unspecified Site 01/06/2009 535.50 Gastritis Unspec 01/06/2009 789.00 Abdominal Pain Unspecified Site 01/06/2009 MARIN DO ALINA K 535.50 Gastritis Unspec 01/06/2009 MARIN DO, ALINA K 789.00 Abdominal Pain Unspecified Site 01/06/2009 MARIN DO, ALINA K 535.50 Gastritis Unspec 01/06/2009 MARIN DO, ALINA K 789.00 Abdominal Pain Unspecified Site 01/06/2009 535.50 Gastritis Unspec 01/06/2009 789.00 Abdominal Pain Unspecified Site 01/06/2009 JOSESITO LUKE APRN S 535.50 Gastritis Unspec 01/06/2009 JOSESITO LUKE APRN S 789.00 Abdominal Pain Unspecified Site 01/06/2009 535.50 Gastritis Unspec 01/06/2009 789.00 Abdominal Pain Unspecified Site 01/06/2009 535.50 Gastritis Unspec 01/06/2009 789.00 Abdominal Pain Unspecified Site 01/06/2009 BON HORTON ONEAL Romero 535.50 Gastritis Unspec 01/06/2009 BON HORTON ONEAL Romero 789.00 Abdominal Pain Unspecified Site 01/06/2009 JOSESITO LUKE APRN S 535.50 Gastritis Unspec 01/06/2009 JOSESITO LUKE APRN S 789.00 Abdominal Pain Unspecified Site 01/06/2009 MAXIMINO KHANNA MD 535.50 Gastritis Unspec 01/06/2009 MAXIMINO KHANNA MD 789.00 Abdominal Pain Unspecified Site 01/06/2009 MARIN DOAARONA K 535.50 Gastritis Unspec 01/06/2009 MARIN DO ALINA K 789.00 Abdominal Pain Unspecified Site 01/06/2009 JOSESITO LUKE APRN S 535.50 Gastritis Unspec 01/06/2009 JOSESITO LUKE APRN S 789.00 Abdominal Pain Unspecified Site 01/06/2009 MARLENE GILLIAM APRN 535.50 Gastritis Unspec 01/06/2009 TAWANA ONEILLMARLENE 789.00 Abdominal Pain Unspecified Site 01/06/2009 JOSESITO LUKE APRN S 535.50 Gastritis Unspec 01/06/2009 CHANEL LUKE APRNNDA S 789.00 Abdominal Pain Unspecified Site 03/05/2009 461.0 Acute Maxillary Sinusitis 03/05/2009 ONEAL CROCKETT DO F 461.0 Acute Maxillary Sinusitis 03/05/2009 ONEAL CROCKETT DO F 461.0 Acute Maxillary Sinusitis 03/05/2009 461.0 Acute Maxillary Sinusitis 03/05/2009 MARIN DO, ALINA K 461.0 Acute Maxillary Sinusitis 03/05/2009 MARIN DO, ALINA K 461.0 Acute Maxillary Sinusitis 03/05/2009 461.0 Acute Maxillary Sinusitis 03/05/2009 JUAN RAMON LUKE APRNA S 461.0 Acute Maxillary Sinusitis 03/05/2009 461.0 Acute Maxillary Sinusitis 03/05/2009 461.0 Acute Maxillary Sinusitis 03/05/2009 ONEAL CROCKETT DO F 461.0 Acute Maxillary Sinusitis 03/05/2009 JUAN RAMON LUKE APRNA S 461.0 Acute Maxillary Sinusitis 03/05/2009 MAXIMINO KHANNA MD 461.0 Acute Maxillary Sinusitis 03/05/2009 MARIN DO, ALINA K 461.0 Acute Maxillary Sinusitis 03/05/2009 CHANEL LUKE APRNNDA S 461.0 Acute Maxillary Sinusitis 03/05/2009 TAWANA ONEILL MARLENE SANDERSON 461.0 Acute Maxillary Sinusitis 03/05/2009 CHANEL LUKE APRNNDA S 461.0 Acute Maxillary Sinusitis 04/02/2009 626.8 Dysfunctional Uterine Bleeding 04/02/2009 788.1 Pain During Urination (dysuria) 04/02/2009 ONEAL CROCKETT DO 626.8 Dysfunctional Uterine Bleeding 04/02/2009 ONEAL CROCKETT DO 788.1 Pain During Urination (dysuria) 04/02/2009 ONEAL CROCKETT DO F 626.8 Dysfunctional Uterine Bleeding 04/02/2009 ONEAL CROCKETT DO 788.1 Pain During Urination (dysuria) 04/02/2009 626.8 Dysfunctional Uterine Bleeding 04/02/2009 788.1 Pain During Urination (dysuria) 04/02/2009 MARIN DO, ALINA K 626.8 Dysfunctional Uterine Bleeding 04/02/2009 MARIN DO, ALINA K 788.1 Pain During Urination (dysuria) 04/02/2009 MARIN DO, ALINA K 626.8 Dysfunctional Uterine Bleeding 04/02/2009 MARIN DO, ALINA K 788.1 Pain During Urination (dysuria) 04/02/2009 626.8 Dysfunctional Uterine Bleeding 04/02/2009 788.1 Pain During Urination (dysuria) 04/02/2009 CHANEL LUKE APRNNDA S 626.8 Dysfunctional Uterine Bleeding 04/02/2009 CHANEL LUKE APRNNDA S 788.1 Pain During Urination (dysuria) 04/02/2009 626.8 Dysfunctional Uterine Bleeding 04/02/2009 788.1 Pain During Urination (dysuria) 04/02/2009 626.8 Dysfunctional Uterine Bleeding 04/02/2009 788.1 Pain During Urination (dysuria) 04/02/2009 WERONEAL JACKSON DO F 626.8 Dysfunctional Uterine Bleeding 04/02/2009 WERDER KIANA HORTONEN F 788.1 Pain During Urination (dysuria) 04/02/2009 CHANEL LUKE APRNNDA S 626.8 Dysfunctional Uterine Bleeding 04/02/2009 TI ONEILL JOSESITO S 788.1 Pain During Urination (dysuria) 04/02/2009 MAXIMINO KHANNA MD 626.8 Dysfunctional Uterine Bleeding 04/02/2009 MAXIMINO KHANNA MD 788.1 Pain During Urination (dysuria) 04/02/2009 MARIN DO, ALINA K 626.8 Dysfunctional Uterine Bleeding 04/02/2009 MARIN DO, ALINA K 788.1 Pain During Urination (dysuria) 04/02/2009 CHANEL LUKE APRNNDA S 626.8 Dysfunctional Uterine Bleeding 04/02/2009 TI ONEILL JOSESITO S 788.1 Pain During Urination (dysuria) 04/02/2009 MARLENE GILLIAM APRN 626.8 Dysfunctional Uterine Bleeding 04/02/2009 MARLENE GILLIAM APRN 788.1 Pain During Urination (dysuria) 04/02/2009 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, 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 626.8 Dysfunctional Uterine Bleeding 04/02/2009 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, 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 788.1 Pain During Urination (dysuria) 05/09/2009 487.1 Influenza, With Other Respiratory Manifestations 05/09/2009 780.60 Fever [as Symptom] 05/09/2009 WERDER DO, ONEAL F 487.1 Influenza, With Other Respiratory Manifestations 05/09/2009 WERDER DO, ONELA F 780.60 Fever [as Symptom] 05/09/2009 WERDER DO, ONEAL F 487.1 Influenza, With Other Respiratory Manifestations 05/09/2009 WERDER DO, ONEAL F 780.60 Fever [as Symptom] 05/09/2009 487.1 Influenza, With Other Respiratory Manifestations 05/09/2009 780.60 Fever [as Symptom] 05/09/2009 MARIN DO, ALINA K 487.1 Influenza, With Other Respiratory Manifestations 05/09/2009 MARIN DO, ALINA K 780.60 Fever [as Symptom] 05/09/2009 MARIN DO, ALINA K 487.1 Influenza, With Other Respiratory Manifestations 05/09/2009 MARIN DO, ALINA K 780.60 Fever [as Symptom] 05/09/2009 487.1 Influenza, With Other Respiratory Manifestations 05/09/2009 780.60 Fever [as Symptom] 05/09/2009 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, 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 487.1 Influenza, With Other Respiratory Manifestations 05/09/2009 TI ONEILL, JOSESITO S 780.60 Fever [as Symptom] 05/09/2009 487.1 Influenza, With Other Respiratory Manifestations 05/09/2009 780.60 Fever [as Symptom] 05/09/2009 487.1 Influenza, With Other Respiratory Manifestations 05/09/2009 780.60 Fever [as Symptom] 05/09/2009 WERDER DO, ONEAL F 487.1 Influenza, With Other Respiratory Manifestations 05/09/2009 WERDER DO, ONEAL F 780.60 Fever [as Symptom] 05/09/2009 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, 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 487.1 Influenza, With Other Respiratory Manifestations 05/09/2009 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, 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 780.60 Fever [as Symptom] 05/09/2009 MAXIMINO KHANNA MD 487.1 Influenza, With Other Respiratory Manifestations 05/09/2009 MAXIMINO KHANNA MD 780.60 Fever [as Symptom] 05/09/2009 MARIN DOAARONA K 487.1 Influenza, With Other Respiratory Manifestations 05/09/2009 AARON MARIN DOA K 780.60 Fever [as Symptom] 05/09/2009 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, 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 487.1 Influenza, With Other Respiratory Manifestations 05/09/2009 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, 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 780.60 Fever [as Symptom] 05/09/2009 GILLIAM APRN, MARLENE SANDERSON 487.1 Influenza, With Other Respiratory Manifestations 05/09/2009 GILLIAM RUBBER MOULDING MACHINE OPERATORMARLENE 780.60 Fever [as Symptom] 05/09/2009 TI ONEILL JOSESITO S 487.1 Influenza, With Other Respiratory Manifestations 05/09/2009 TI ONEILL JOSESITO S 780.60 Fever [as Symptom] 07/31/2009 611.6 Nonpuerperal Galactorrhea Left 07/31/2009 WERONEAL JACKSON DO F 611.6 Nonpuerperal Galactorrhea Left 07/31/2009 WERONEAL JACKSON DO F 611.6 Nonpuerperal Galactorrhea Left 07/31/2009 611.6 Nonpuerperal Galactorrhea Left 07/31/2009 ALINA MARIN DO K 611.6 Nonpuerperal Galactorrhea Left 07/31/2009 ALINA MARIN DO K 611.6 Nonpuerperal Galactorrhea Left 07/31/2009 611.6 Nonpuerperal Galactorrhea Left 07/31/2009 JUA NRAMON LUKE APRNA S 611.6 Nonpuerperal Galactorrhea Left 07/31/2009 611.6 Nonpuerperal Galactorrhea Left 07/31/2009 611.6 Nonpuerperal Galactorrhea Left 07/31/2009 KIANA CROCKETT DOEN F 611.6 Nonpuerperal Galactorrhea Left 07/31/2009 JUAN RAMON LUKE APRNA S 611.6 Nonpuerperal Galactorrhea Left 07/31/2009 MAXIMINO KHANNA MD 611.6 Nonpuerperal Galactorrhea Left 07/31/2009 ALINA MARIN DO K 611.6 Nonpuerperal Galactorrhea Left 07/31/2009 JUAN RAMON LUKE APRNA S 611.6 Nonpuerperal Galactorrhea Left 07/31/2009 TAWANA ONEILL MARLENE SANDERSON 611.6 Nonpuerperal Galactorrhea Left 07/31/2009 JUAN RAMON LUKE APRNA S 611.6 Nonpuerperal Galactorrhea Left 01/17/2010 616.10 Vaginitis And Vulvovaginitis, Unspecified 01/17/2010 709.01 Vitiligo 01/17/2010 ONEAL CROCKETT DO F 616.10 Vaginitis And Vulvovaginitis, Unspecified 01/17/2010 ONEAL CROCKETT DO F 709.01 Vitiligo 01/17/2010 ONEAL CROCKETT DO F 616.10 Vaginitis And Vulvovaginitis, Unspecified 01/17/2010 ONEAL CROCKETT DO F 709.01 Vitiligo 01/17/2010 616.10 Vaginitis And Vulvovaginitis, Unspecified 01/17/2010 709.01 Vitiligo 01/17/2010 ALINA MARIN DO K 616.10 Vaginitis And Vulvovaginitis, Unspecified 01/17/2010 ALINA MARIN DO K 709.01 Vitiligo 01/17/2010 MARIN ALINA HORTON K 616.10 Vaginitis And Vulvovaginitis, Unspecified 01/17/2010 ALINA MARIN DO K 709.01 Vitiligo 01/17/2010 616.10 Vaginitis And Vulvovaginitis, Unspecified 01/17/2010 709.01 Vitiligo 01/17/2010 CHANEL LUKE APRNNDA S 616.10 Vaginitis And Vulvovaginitis, Unspecified 01/17/2010 TI ONEILL JOSESITO S 709.01 Vitiligo 01/17/2010 616.10 Vaginitis And Vulvovaginitis, Unspecified 01/17/2010 709.01 Vitiligo 01/17/2010 616.10 Vaginitis And Vulvovaginitis, Unspecified 01/17/2010 709.01 Vitiligo 01/17/2010 WERDER DO, ONEAL F 616.10 Vaginitis And Vulvovaginitis, Unspecified 01/17/2010 WERDER DO, ONEAL F 709.01 Vitiligo 01/17/2010 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, 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 616.10 Vaginitis And Vulvovaginitis, Unspecified 01/17/2010 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, 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 709.01 Vitiligo 01/17/2010 MAXIMINO KHANNA MD 616.10 Vaginitis And Vulvovaginitis, Unspecified 01/17/2010 MAXIMINO KHANNA MD 709.01 Vitiligo 01/17/2010 MARIN DO, ALINA K 616.10 Vaginitis And Vulvovaginitis, Unspecified 01/17/2010 MARIN DO ALINA K 709.01 Vitiligo 01/17/2010 TI ONEILL JOSESITO S 616.10 Vaginitis And Vulvovaginitis, Unspecified 01/17/2010 TI ONEILL JOSESITO S 709.01 Vitiligo 01/17/2010 GILLIAM MAI MARLENE KIN 616.10 Vaginitis And Vulvovaginitis, Unspecified 01/17/2010 GILLIAM MAI MARLENE ELMOREH 709.01 Vitiligo 01/17/2010 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, 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 616.10 Vaginitis And Vulvovaginitis, Unspecified 01/17/2010 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, 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 709.01 Vitiligo 02/28/2010 599.0 Urinary Tract Infection, Site Not Specified 02/28/2010 WERDER DO, ONEAL F 599.0 Urinary Tract Infection, Site Not Specified 02/28/2010 WERDER DO, ONEAL F 599.0 Urinary Tract Infection, Site Not Specified 02/28/2010 599.0 Urinary Tract Infection, Site Not Specified 02/28/2010 MARIN DO, ALINA K 599.0 Urinary Tract Infection, Site Not Specified 02/28/2010 MARIN DO, ALINA K 599.0 Urinary Tract Infection, Site Not Specified 02/28/2010 599.0 Urinary Tract Infection, Site Not Specified 02/28/2010 TI ONEILL JOSESITO S 599.0 Urinary Tract Infection, Site Not Specified 02/28/2010 599.0 Urinary Tract Infection, Site Not Specified 02/28/2010 599.0 Urinary Tract Infection, Site Not Specified 02/28/2010 ONEAL CROCKETT DO F 599.0 Urinary Tract Infection, Site Not Specified 02/28/2010 JOSESITO LUKE APRN S 599.0 Urinary Tract Infection, Site Not Specified 02/28/2010 MAXIMINO KHANNA MD 599.0 Urinary Tract Infection, Site Not Specified 02/28/2010 ALINA MARIN DO K 599.0 Urinary Tract Infection, Site Not Specified 02/28/2010 CHANEL LUKE APRNNDA S 599.0 Urinary Tract Infection, Site Not Specified 02/28/2010 MARLENE GILLIAM APRN 599.0 Urinary Tract Infection, Site Not Specified 02/28/2010 CHANEL LUKE APRNNDA S 599.0 Urinary Tract Infection, Site Not Specified 12/24/2010 381.81 Eustachian Tube Dysfunction 12/24/2010 ONEAL CROCKETT DO F 381.81 Eustachian Tube Dysfunction 12/24/2010 ONEAL CROCKETT DO F 381.81 Eustachian Tube Dysfunction 12/24/2010 381.81 Eustachian Tube Dysfunction 12/24/2010 ALINA MARIN DO K 381.81 Eustachian Tube Dysfunction 12/24/2010 ALINA MARIN DO K 381.81 Eustachian Tube Dysfunction 12/24/2010 381.81 Eustachian Tube Dysfunction 12/24/2010 JUAN RAMON LUKE APRNA S 381.81 Eustachian Tube Dysfunction 12/24/2010 381.81 Eustachian Tube Dysfunction 12/24/2010 381.81 Eustachian Tube Dysfunction 12/24/2010 ONEAL CROCKETT DO F 381.81 Eustachian Tube Dysfunction 12/24/2010 CHANEL LUKE APRNNDA S 381.81 Eustachian Tube Dysfunction 12/24/2010 MAXIMINO KHANNA MD 381.81 Eustachian Tube Dysfunction 12/24/2010 ALINA MARIN DO K 381.81 Eustachian Tube Dysfunction 12/24/2010 CHANEL LUKE APRNNDA S 381.81 Eustachian Tube Dysfunction 12/24/2010 MARLENE GILLIAM APRNH 381.81 Eustachian Tube Dysfunction 12/24/2010 JOSESITO LUKE APRN 381.81 Eustachian Tube Dysfunction 01/28/2011 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 01/28/2011 726.32 Lateral Epicondylitis Elbow Region 01/28/2011 ONEAL CROCKETT DO 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 01/28/2011 ONEAL CROCKETT DO 726.32 Lateral Epicondylitis Elbow Region 01/28/2011 ONEAL CROCKETT DO 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 01/28/2011 ONEAL CROCKETT DO 726.32 Lateral Epicondylitis Elbow Region 01/28/2011 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 01/28/2011 726.32 Lateral Epicondylitis Elbow Region 01/28/2011 ALINA MARIN DO 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 01/28/2011 ALINA MARIN DO 726.32 Lateral Epicondylitis Elbow Region 01/28/2011 ALINA MARIN DO 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 01/28/2011 ALINA MARIN DO 726.32 Lateral Epicondylitis Elbow Region 01/28/2011 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 01/28/2011 726.32 Lateral Epicondylitis Elbow Region 01/28/2011 JOSESITO LUKE APRN S 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 01/28/2011 JOSESITO LUKE APRN S 726.32 Lateral Epicondylitis Elbow Region 01/28/2011 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 01/28/2011 726.32 Lateral Epicondylitis Elbow Region 01/28/2011 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 01/28/2011 726.32 Lateral Epicondylitis Elbow Region 01/28/2011 ONEAL CROCKETT DO 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 01/28/2011 ONEAL CROCKETT DO 726.32 Lateral Epicondylitis Elbow Region 01/28/2011 JOSESITO LUKE APRN S 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 01/28/2011 JOSESITO LUKE APRN S 726.32 Lateral Epicondylitis Elbow Region 01/28/2011 MAXIMINO KHANNA MD 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 01/28/2011 MAXIMINO KHANNA MD 726.32 Lateral Epicondylitis Elbow Region 01/28/2011 ALINA MARIN DO K 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9 Sinusitis Acute 03/19/2011 ONEAL CROCKETT DO F 461.9 Sinusitis Acute 03/19/2011 ONEAL CROCKETT DO F 461.9 Sinusitis Acute 03/19/2011 461.9 Sinusitis Acute 03/19/2011 ALINA MARIN DO K 461.9 Sinusitis Acute 03/19/2011 ALINA MARIN DO K 461.9 Sinusitis Acute 03/19/2011 461.9 Sinusitis Acute 03/19/2011 JUAN RAMON LUKE APRNA S 461.9 Sinusitis Acute 03/19/2011 461.9 Sinusitis Acute 03/19/2011 461.9 Sinusitis Acute 03/19/2011 ONEAL CROCKETT DO F 461.9 Sinusitis Acute 03/19/2011 JOSESITO LUKE APRN S 461.9 Sinusitis Acute 03/19/2011 MAXIMINO KHANNA MD 461.9 Sinusitis Acute 03/19/2011 ALINA MARIN DO K 461.9 Sinusitis Acute 03/19/2011 JUAN RAMON LUKE APRNA S 461.9 Sinusitis Acute 03/19/2011 MARLENE GILLIAM APRNH 461.9 Sinusitis Acute 03/19/2011 JOSESITO LUKE APRN 461.9 Sinusitis Acute 03/25/2011 V72.31 Ultrasound Applications Specialist Exam, Routine 03/25/2011 ONEAL CROCKETT DO V72.31 Ultrasound Applications Specialist Exam, Routine 03/25/2011 ONEAL CROCKETT DO V72.31 Ultrasound Applications Specialist Exam, Routine 03/25/2011 V72.31 Ultrasound Applications Specialist Exam, Routine 03/25/2011 MARIN ALINA HORTON V72.31 Ultrasound Applications Specialist Exam, Routine 03/25/2011 MARIN DOALINA K V72.31 Ultrasound Applications Specialist Exam, Routine 03/25/2011 V72.31 Ultrasound Applications Specialist Exam, Routine 03/25/2011 JOSESITO LUKE APRN S V72.31 Ultrasound Applications Specialist Exam, Routine 03/25/2011 V72.31 Ultrasound Applications Specialist Exam, Routine 03/25/2011 V72.31 Ultrasound Applications Specialist Exam, Routine 03/25/2011 ONEAL CROCKETT DO V72.31 Ultrasound Applications Specialist Exam, Routine 03/25/2011 JOSESITO LUKE APRN S V72.31 Ultrasound Applications Specialist Exam, Routine 03/25/2011 MAXIMINO KHANNA MD V72.31 Ultrasound Applications Specialist Exam, Routine 03/25/2011 MARIN ALINA HORTON V72.31 Ultrasound Applications Specialist Exam, Routine 03/25/2011 JOSESITO LUKE APRN S V72.31 Ultrasound Applications Specialist Exam, Routine 03/25/2011 TAWANA ONEILL MARLENE ELMOREH V72.31 Ultrasound Applications Specialist Exam, Routine 03/25/2011 JOSESITO LUKE APRN S V72.31 Ultrasound Applications Specialist Exam, Routine 05/23/2011 789.00 Abdominal Pain Feels Crampy / Colicky 05/23/2011 ONEAL CROCKETT DO 789.00 Abdominal Pain Feels Crampy / Colicky 05/23/2011 ONEAL CROCKETT DO 789.00 Abdominal Pain Feels Crampy / Colicky 05/23/2011 789.00 Abdominal Pain Feels Crampy / Colicky 05/23/2011 MARIN DOALINA K 789.00 Abdominal Pain Feels Crampy / Colicky 05/23/2011 MARIN DOAARONA K 789.00 Abdominal Pain Feels Crampy / Colicky 05/23/2011 789.00 Abdominal Pain Feels Crampy / Colicky 05/23/2011 TI ONEILL, JOSESITO S 789.00 Abdominal Pain Feels Crampy / Colicky 05/23/2011 789.00 Abdominal Pain Feels Crampy / Colicky 05/23/2011 789.00 Abdominal Pain Feels Crampy / Colicky 05/23/2011 ONEAL CROCKETT DO F 789.00 Abdominal Pain Feels Crampy / Colicky 05/23/2011 TI ONEILL, JOSESITO S 789.00 Abdominal Pain Feels Crampy / Colicky 05/23/2011 MAXIMINO KHANNA MD 789.00 Abdominal Pain Feels Crampy / Colicky 05/23/2011 MARIN DO, ALINA K 789.00 Abdominal Pain Feels Crampy / Colicky 05/23/2011 TI ONEILL, JOSESITO S 789.00 Abdominal Pain Feels Crampy / Colicky 05/23/2011 TAWANA ONEILL MARLENE SANDERSON 789.00 Abdominal Pain Feels Crampy / Colicky 05/23/2011 TI ONEILL, JOSESITO S 789.00 Abdominal Pain Feels Crampy / Colicky 05/30/2011 786.09 Respiratory Abnormality Other 05/30/2011 ONEAL CROCKETT DO F 786.09 Respiratory Abnormality Other 05/30/2011 ONEAL CROCKETT DO F 786.09 Respiratory Abnormality Other 05/30/2011 786.09 Respiratory Abnormality Other 05/30/2011 MARIN DO, ALINA K 786.09 Respiratory Abnormality Other 05/30/2011 MARIN DO, ALINA K 786.09 Respiratory Abnormality Other 05/30/2011 786.09 Respiratory Abnormality Other 05/30/2011 CHANEL LUKE APRNNDA S 786.09 Respiratory Abnormality Other 05/30/2011 786.09 Respiratory Abnormality Other 05/30/2011 786.09 Respiratory Abnormality Other 05/30/2011 ONEAL CROCKETT DO F 786.09 Respiratory Abnormality Other 05/30/2011 JUAN RAMON LUKE APRNA S 786.09 Respiratory Abnormality Other 05/30/2011 MAXIMINO KHANNA MD 786.09 Respiratory Abnormality Other 05/30/2011 MARIN DO ALINA K 786.09 Respiratory Abnormality Other 05/30/2011 JUAN RAMON LUKE APRNA S 786.09 Respiratory Abnormality Other 05/30/2011 TAWANA ONEILL MARLENE SANDERSON 786.09 Respiratory Abnormality Other 05/30/2011 JOSESITO LUKE APRN S 786.09 Respiratory Abnormality Other 06/13/2011 528.00 Stomatitis And Mucositis Unspecified 06/13/2011 ONEAL CROCKETT DO F 528.00 Stomatitis And Mucositis Unspecified 06/13/2011 ONEAL CROCKETT DO F 528.00 Stomatitis And Mucositis Unspecified 06/13/2011 528.00 Stomatitis And Mucositis Unspecified 06/13/2011 MARIN DOAARONA K 528.00 Stomatitis And Mucositis Unspecified 06/13/2011 MARIN DOAARONA K 528.00 Stomatitis And Mucositis Unspecified 06/13/2011 528.00 Stomatitis And Mucositis Unspecified 06/13/2011 JUAN RAMON LUKE APRNA S 528.00 Stomatitis And Mucositis Unspecified 06/13/2011 528.00 Stomatitis And Mucositis Unspecified 06/13/2011 528.00 Stomatitis And Mucositis Unspecified 06/13/2011 ONEAL CROCKETT DO F 528.00 Stomatitis And Mucositis Unspecified 06/13/2011 JUAN RAMON LUKE APRNA S 528.00 Stomatitis And Mucositis Unspecified 06/13/2011 JEY ALATORRE, MAXIMINO 528.00 Stomatitis And Mucositis Unspecified 06/13/2011 MARIN DOALINA K 528.00 Stomatitis And Mucositis Unspecified 06/13/2011 JUAN RAMON LUKE APRNA S 528.00 Stomatitis And Mucositis Unspecified 06/13/2011 TAWANA ONEILL MARLENE SANDERSON 528.00 Stomatitis And Mucositis Unspecified 06/13/2011 JUAN RAMON LUKE APRNA S 528.00 Stomatitis And Mucositis Unspecified 08/19/2011 599.0 Urinary Tract Infection Site Not Specified 08/19/2011 724.2 Lumbago/ Low Back Pain 08/19/2011 ONEAL CROCKETT DO 599.0 Urinary Tract Infection Site Not Specified 08/19/2011 WERDER DO, ONEAL F 724.2 Lumbago/ Low Back Pain 08/19/2011 ONEAL CROCKETT DO 599.0 Urinary Tract Infection Site Not Specified 08/19/2011 ONEAL CROCKETT DO 724.2 Lumbago/ Low Back Pain 08/19/2011 599.0 Urinary Tract Infection Site Not Specified 08/19/2011 724.2 Lumbago/ Low Back Pain 08/19/2011 MARIN DO ALINA K 599.0 Urinary Tract Infection Site Not Specified 08/19/2011 MARIN DO, ALINA K 724.2 Lumbago/ Low Back Pain 08/19/2011 MARIN DO, ALINA K 599.0 Urinary Tract Infection Site Not Specified 08/19/2011 MARIN DO, ALINA K 724.2 Lumbago/ Low Back Pain 08/19/2011 599.0 Urinary Tract Infection Site Not Specified 08/19/2011 724.2 Lumbago/ Low Back Pain 08/19/2011 JOSESITO LUKE APRN S 599.0 Urinary Tract Infection Site Not Specified 08/19/2011 JOSESITO LUKE APRN S 724.2 Lumbago/ Low Back Pain 08/19/2011 599.0 Urinary Tract Infection Site Not Specified 08/19/2011 724.2 Lumbago/ Low Back Pain 08/19/2011 599.0 Urinary Tract Infection Site Not Specified 08/19/2011 724.2 Lumbago/ Low Back Pain 08/19/2011 ONEAL CROCKETT DO F 599.0 Urinary Tract Infection Site Not Specified 08/19/2011 ONEAL CROCKETT DO 724.2 Lumbago/ Low Back Pain 08/19/2011 JOSESITO LUKE APRN S 599.0 Urinary Tract Infection Site Not Specified 08/19/2011 JOSESITO LUKE APRN S 724.2 Lumbago/ Low Back Pain 08/19/2011 MAXIMINO KHANNA MD 599.0 Urinary Tract Infection Site Not Specified 08/19/2011 MAXIMINO KHANNA MD 724.2 Lumbago/ Low Back Pain 08/19/2011 MARIN DO ALINA K 599.0 Urinary Tract Infection Site Not Specified 08/19/2011 MARIN DOAARONA K 724.2 Lumbago/ Low Back Pain 08/19/2011 JUAN RAMON LUKE APRNA S 599.0 Urinary Tract Infection Site Not Specified 08/19/2011 JUAN RAMON LUKE APRNA S 724.2 Lumbago/ Low Back Pain 08/19/2011 TAWANA ONEILL MARLENE SANDERSON 599.0 Urinary Tract Infection Site Not Specified 08/19/2011 TAWANA ONEILL MARLENE SANDERSON 724.2 Lumbago/ Low Back Pain 08/19/2011 JUAN RAMON LUKE APRNA S 599.0 Urinary Tract Infection Site Not Specified 08/19/2011 JUAN RAMON LUKE APRNA S 724.2 Lumbago/ Low Back Pain 10/02/2011 079.99 Unspecified Viral Infection 10/02/2011 ONEAL CROCKETT DO 079.99 Unspecified Viral Infection 10/02/2011 ONEAL CROCKETT DO 079.99 Unspecified Viral Infection 10/02/2011 079.99 Unspecified Viral Infection 10/02/2011 ALINA MARIN DO 079.99 Unspecified Viral Infection 10/02/2011 ALINA MARIN DO 079.99 Unspecified Viral Infection 10/02/2011 079.99 Unspecified Viral Infection 10/02/2011 JOSESITO LUKE APRN S 079.99 Unspecified Viral Infection 10/02/2011 079.99 Unspecified Viral Infection 10/02/2011 079.99 Unspecified Viral Infection 10/02/2011 ONEAL CROCKETT DO 079.99 Unspecified Viral Infection 10/02/2011 JOSESITO LUKE APRN S 079.99 Unspecified Viral Infection 10/02/2011 MAXIMINO KHANNA MD 079.99 Unspecified Viral Infection 10/02/2011 ALINA MARIN DO 079.99 Unspecified Viral Infection 10/02/2011 JUAN RAMON LUKE APRNA S 079.99 Unspecified Viral Infection 10/02/2011 TAWANA ONEILL MARLENE KIN 079.99 Unspecified Viral Infection 10/02/2011 JUAN RAMON LUKE APRNA S 079.99 Unspecified Viral Infection 10/21/2011 728.85 Muscle Spasm 10/21/2011 ONEAL CROCKETT DO 728.85 Muscle Spasm 10/21/2011 ONEAL CROCKETT DO 728.85 Muscle Spasm 10/21/2011 728.85 Muscle Spasm 10/21/2011 ALINA MARIN DO K 728.85 Muscle Spasm 10/21/2011 ALINA MARIN DO K 728.85 Muscle Spasm 10/21/2011 728.85 Muscle Spasm 10/21/2011 JUAN RAMON LUKE APRNA S 728.85 Muscle Spasm 10/21/2011 728.85 Muscle Spasm 10/21/2011 728.85 Muscle Spasm 10/21/2011 ONEAL CROCKETT DO 728.85 Muscle Spasm 10/21/2011 JUAN RAMON LUKE APRNA S 728.85 Muscle Spasm 10/21/2011 MAXIMINO KHANNA MD 728.85 Muscle Spasm 10/21/2011 ALINA MARIN DO 728.85 Muscle Spasm 10/21/2011 JUAN RAMON LUKE APRNA S 728.85 Muscle Spasm 10/21/2011 TAWANA ONEILL MARLENE SANDERSON 728.85 Muscle Spasm 10/21/2011 JUAN RAMON LUKE APRNA S 728.85 Muscle Spasm 10/28/2011 V18.0 FAMILY HISTORY OF DIABETES MELLITUS 10/28/2011 ONEAL CROCKETT DO V18.0 FAMILY HISTORY OF DIABETES MELLITUS 10/28/2011 ONEAL CROCKETT DO V18.0 FAMILY HISTORY OF DIABETES MELLITUS 10/28/2011 V18.0 FAMILY HISTORY OF DIABETES MELLITUS 10/28/2011 ALINA MARIN DO K V18.0 FAMILY HISTORY OF DIABETES MELLITUS 10/28/2011 ALINA MARIN DO K V18.0 FAMILY HISTORY OF DIABETES MELLITUS 10/28/2011 V18.0 FAMILY HISTORY OF DIABETES MELLITUS 10/28/2011 JUAN RAMON LUKE APRNA S V18.0 FAMILY HISTORY OF DIABETES MELLITUS 10/28/2011 V18.0 FAMILY HISTORY OF DIABETES MELLITUS 10/28/2011 V18.0 FAMILY HISTORY OF DIABETES MELLITUS 10/28/2011 ONEAL CROCKETT DO V18.0 FAMILY HISTORY OF DIABETES MELLITUS 10/28/2011 JUAN RAMON LUKE APRNA S V18.0 FAMILY HISTORY OF DIABETES MELLITUS 10/28/2011 MAXIMINO KHANNA MD V18.0 FAMILY HISTORY OF DIABETES MELLITUS 10/28/2011 ALINA MARIN DO V18.0 FAMILY HISTORY OF DIABETES MELLITUS 10/28/2011 JOSESITO LUKE APRN S V18.0 FAMILY HISTORY OF DIABETES MELLITUS 10/28/2011 TAWANA ONEILL MARLENE SANDERSON V18.0 FAMILY HISTORY OF DIABETES MELLITUS 10/28/2011 JOSESITO LUKE APRN S V18.0 FAMILY HISTORY OF DIABETES MELLITUS 12/18/2011 724.2 [facility] F 724.2 LUMBAGO 12/18/2011 724.2 LUMBAGO 12/18/2011 MARIN DOAARONA K 724.2 LUMBAGO 12/18/2011 MARIN DO, ALINA K 724.2 LUMBAGO 12/18/2011 724.2 LUMBAGO 12/18/2011 JOSESITO LUKE APRN S 724.2 LUMBAGO 12/18/2011 724.2 LUMBAGO 12/18/2011 724.2 LUMBAGO 12/18/[facility] 724.2 LUMBAGO 12/18/2011 JOSESITO LUKE APRN S 724.2 LUMBAGO 12/18/2011 MAXIMINO KHANNA MD 724.2 LUMBAGO 12/18/2011 MARIN DOAARONA K 724.2 LUMBAGO 12/18/2011 JUAN RAMON LUKE APRNA S 724.2 LUMBAGO 12/18/2011 TAWANA ONEILL MARLENE KIN 724.2 LUMBAGO 12/18/2011 JOSESITO LUKE APRN S 724.2 LUMBAGO 01/06/2012 386.10 PERIPHERAL VERTIGO UNSPECIFIED 01/06/2012 ONEAL CROCKETT DO F 386.10 PERIPHERAL VERTIGO UNSPECIFIED 01/06/2012 ONEAL CROCKETT DO F 386.10 PERIPHERAL VERTIGO UNSPECIFIED 01/06/2012 386.10 PERIPHERAL VERTIGO UNSPECIFIED 01/06/2012 ALINA MARIN DO K 386.10 PERIPHERAL VERTIGO UNSPECIFIED 01/06/2012 MARIN DOAARONA K 386.10 PERIPHERAL VERTIGO UNSPECIFIED 01/06/2012 386.10 PERIPHERAL VERTIGO UNSPECIFIED 01/06/2012 JOSESITO LUKE APRN S 386.10 PERIPHERAL VERTIGO UNSPECIFIED 01/06/2012 386.10 PERIPHERAL VERTIGO UNSPECIFIED 01/06/2012 386.10 PERIPHERAL VERTIGO UNSPECIFIED 01/06/2012 ONEAL CROCKETT DO 386.10 PERIPHERAL VERTIGO UNSPECIFIED 01/06/2012 JOSESITO LUKE APRN S 386.10 PERIPHERAL VERTIGO UNSPECIFIED 01/06/2012 MAXIMINO KHANNA MD 386.10 PERIPHERAL VERTIGO UNSPECIFIED 01/06/2012 ALINA MARIN DO 386.10 PERIPHERAL VERTIGO UNSPECIFIED 01/06/2012 JOSESITO LUKE APRN S 386.10 PERIPHERAL VERTIGO UNSPECIFIED 01/06/2012 GILLIAM APRNMARLENE 386.10 PERIPHERAL VERTIGO UNSPECIFIED 01/06/2012 JOSESITO LUKE APRN S 386.10 PERIPHERAL VERTIGO UNSPECIFIED 01/15/2012 Ot 599.0 URIN TRACT INFECTION NOS 01/15/2012 Ot 788.1 DYSURIA 03/11/2012 682.9 CELLULITIS AND ABSCESS OF UNSPECIFIED SITES 03/11/2012 ONEAL CROCKETT DO 682.9 CELLULITIS AND ABSCESS OF UNSPECIFIED SITES 03/11/2012 ONEAL CROCKETT DO 682.9 CELLULITIS AND ABSCESS OF UNSPECIFIED SITES 03/11/2012 682.9 CELLULITIS AND ABSCESS OF UNSPECIFIED SITES 03/11/2012 ALINA MARIN DO 682.9 CELLULITIS AND ABSCESS OF UNSPECIFIED SITES 03/11/2012 ALINA MARIN DO 682.9 CELLULITIS AND ABSCESS OF UNSPECIFIED SITES 03/11/2012 682.9 CELLULITIS AND ABSCESS OF UNSPECIFIED SITES 03/11/2012 JOSESITO LUKE APRN S 682.9 CELLULITIS AND ABSCESS OF UNSPECIFIED SITES 03/11/2012 682.9 CELLULITIS AND ABSCESS OF UNSPECIFIED SITES 03/11/2012 682.9 CELLULITIS AND ABSCESS OF UNSPECIFIED SITES 03/11/2012 ONEAL CROCKETT DO 682.9 CELLULITIS AND ABSCESS OF UNSPECIFIED SITES 03/11/2012 JOSESITO LUKE APRN 682.9 CELLULITIS AND ABSCESS OF UNSPECIFIED SITES 03/11/2012 MAXIMINO KHANNA MD 682.9 CELLULITIS AND ABSCESS OF UNSPECIFIED SITES 03/11/2012 ALINA MARIN DO 682.9 CELLULITIS AND ABSCESS OF UNSPECIFIED SITES 03/11/2012 JOSESITO LUKE APRN 682.9 CELLULITIS AND ABSCESS OF UNSPECIFIED SITES 03/11/2012 MARLENE GILLIAM APRN 682.9 CELLULITIS AND ABSCESS OF UNSPECIFIED SITES 03/11/2012 JOSESITO LUKE APRN 682.9 CELLULITIS AND ABSCESS OF UNSPECIFIED SITES 03/30/2012 250.00 DIABETES MELLITUS WITHOUT MENTION OF COMPLICATION TYPE II OR UNSPECIFIED TYPE NOT STATED UNCONTROLLED 03/30/2012 ONEAL CROCKETT DO F 250.00 DIABETES MELLITUS WITHOUT MENTION OF COMPLICATION TYPE II OR UNSPECIFIED TYPE NOT STATED UNCONTROLLED 03/30/2012 ONEAL CROCKETT DO F 250.00 DIABETES MELLITUS WITHOUT MENTION OF COMPLICATION TYPE II OR UNSPECIFIED TYPE NOT STATED UNCONTROLLED 03/30/2012 250.00 DIABETES MELLITUS WITHOUT MENTION OF COMPLICATION TYPE II OR UNSPECIFIED TYPE NOT STATED UNCONTROLLED 03/30/2012 ALINA MARIN DO 250.00 DIABETES MELLITUS WITHOUT MENTION OF COMPLICATION TYPE II OR UNSPECIFIED TYPE NOT STATED UNCONTROLLED 03/30/2012 ALINA MARIN DO 250.00 DIABETES MELLITUS WITHOUT MENTION OF COMPLICATION TYPE II OR UNSPECIFIED TYPE NOT STATED UNCONTROLLED 03/30/2012 250.00 DIABETES MELLITUS WITHOUT MENTION OF COMPLICATION TYPE II OR UNSPECIFIED TYPE NOT STATED UNCONTROLLED 03/30/2012 JOSESITO LUKE APRN S 250.00 DIABETES MELLITUS WITHOUT MENTION OF COMPLICATION TYPE II OR UNSPECIFIED TYPE NOT STATED UNCONTROLLED 03/30/2012 250.00 DIABETES MELLITUS WITHOUT MENTION OF COMPLICATION TYPE II OR UNSPECIFIED TYPE NOT STATED UNCONTROLLED 03/30/2012 250.00 DIABETES MELLITUS WITHOUT MENTION OF COMPLICATION TYPE II OR UNSPECIFIED TYPE NOT STATED UNCONTROLLED 03/30/2012 ONEAL CROCKETT DO 250.00 DIABETES MELLITUS WITHOUT MENTION OF COMPLICATION TYPE II OR UNSPECIFIED TYPE NOT STATED UNCONTROLLED 03/30/2012 JOSESITO LUKE APRN S 250.00 DIABETES MELLITUS WITHOUT MENTION OF COMPLICATION TYPE II OR UNSPECIFIED TYPE NOT STATED UNCONTROLLED 03/30/2012 MAXIMINO KHANNA MD 250.00 DIABETES MELLITUS WITHOUT MENTION OF COMPLICATION TYPE II OR UNSPECIFIED TYPE NOT STATED UNCONTROLLED 03/30/2012 ALINA MARIN DO 250.00 DIABETES MELLITUS WITHOUT MENTION OF COMPLICATION TYPE II OR UNSPECIFIED TYPE NOT STATED UNCONTROLLED 03/30/2012 JOSESITO LUKE APRN S 250.00 DIABETES MELLITUS WITHOUT MENTION OF COMPLICATION TYPE II OR UNSPECIFIED TYPE NOT STATED UNCONTROLLED 03/30/2012 TAWANA ONEILLMARLENE 250.00 DIABETES MELLITUS WITHOUT MENTION OF COMPLICATION TYPE II OR UNSPECIFIED TYPE NOT STATED UNCONTROLLED 03/30/2012 JOSESITO LUKE APRN S 250.00 DIABETES MELLITUS WITHOUT MENTION OF COMPLICATION TYPE II OR UNSPECIFIED TYPE NOT STATED UNCONTROLLED 06/23/2012 790.29 OTHER ABNORMAL GLUCOSE 06/23/2012 KIANA CROCKETT DOEN F 790.29 OTHER ABNORMAL GLUCOSE 06/23/2012 KIANA CROCKETT DOEN F 790.29 OTHER ABNORMAL GLUCOSE 06/23/2012 790.29 OTHER ABNORMAL GLUCOSE 06/23/2012 MARIN DO, ALINA K 790.29 OTHER ABNORMAL GLUCOSE 06/23/2012 MARIN DO, ALINA K 790.29 OTHER ABNORMAL GLUCOSE 06/23/2012 790.29 OTHER ABNORMAL GLUCOSE 06/23/2012 JUAN RAMON LUKE APRNA S 790.29 OTHER ABNORMAL GLUCOSE 06/23/2012 790.29 OTHER ABNORMAL GLUCOSE 06/23/2012 790.29 OTHER ABNORMAL GLUCOSE 06/23/2012 KIANA CROCKETT DOEN F 790.29 OTHER ABNORMAL GLUCOSE 06/23/2012 JUAN RAMON LUKE APRNA S 790.29 OTHER ABNORMAL GLUCOSE 06/23/2012 MAXIMINO KHANNA MD 790.29 OTHER ABNORMAL GLUCOSE 06/23/2012 MARIN DO, ALINA K 790.29 OTHER ABNORMAL GLUCOSE 06/23/2012 JUAN RAMON LUKE APRNA S 790.29 OTHER ABNORMAL GLUCOSE 06/23/2012 TAWANA ONEILL MARLENE SANDERSON 790.29 OTHER ABNORMAL GLUCOSE 06/23/2012 JUAN RAMON LUKE APRNA S 790.29 OTHER ABNORMAL GLUCOSE 06/28/2012 296.90 MOOD DISORDER 06/28/2012 ONEAL CROCKETT DO F 296.90 MOOD DISORDER 06/28/2012 KIANA CROCKETT DOEN F 296.90 MOOD DISORDER 06/28/2012 296.90 MOOD DISORDER 06/28/2012 MARIN DO, ALINA K 296.90 MOOD DISORDER 06/28/2012 MARIN DO, ALINA K 296.90 MOOD DISORDER 06/28/2012 296.90 MOOD DISORDER 06/28/2012 JOSESITO LUKE APRN S 296.90 MOOD DISORDER 06/28/2012 296.90 MOOD DISORDER 06/28/2012 296.90 MOOD DISORDER 06/28/2012 ONEAL CROCKETT DO 296.90 MOOD DISORDER 06/28/2012 JOSESITO LUKE APRN S 296.90 MOOD DISORDER 06/28/2012 MAXIMINO KHANNA MD 296.90 MOOD DISORDER 06/28/2012 ALINA MARIN DO 296.90 MOOD DISORDER 06/28/2012 JOSESITO LUKE APRN S 296.90 MOOD DISORDER 06/28/2012 MARLENE GILLIAM APRN 296.90 MOOD DISORDER 07/06/2012 V58.69 MEDICATION HIGH RISK 07/17/2012 Ot 478.19 OTHER DISEASE OF NASAL CAVITY AND SINUSE 07/17/2012 Ot 780.52 INSOMNIA, UNSPECIFIED 07/17/2012 Ot 995.27 OTHER DRUG ALLERGY 07/17/2012 Ot E939.0 ADV EFF ANTIDEPRESSANTS 07/21/2012 ONEAL CROCKETT DO 780.52 INSOMNIA UNSPECIFIED 07/21/2012 ONEAL CROCKETT DO 780.52 INSOMNIA UNSPECIFIED 07/21/2012 780.52 INSOMNIA UNSPECIFIED 07/21/2012 ALINA MARIN DO K 780.52 INSOMNIA UNSPECIFIED 07/21/2012 ALINA MARIN DO K 780.52 INSOMNIA UNSPECIFIED 07/21/2012 780.52 INSOMNIA UNSPECIFIED 07/21/2012 JOSESITO LUKE APRN S 780.52 INSOMNIA UNSPECIFIED 07/21/2012 780.52 INSOMNIA UNSPECIFIED 07/21/2012 780.52 INSOMNIA UNSPECIFIED 07/21/2012 ONEAL CROCKETT DO 780.52 INSOMNIA UNSPECIFIED 07/21/2012 JOSESITO LUKE APRN S 780.52 INSOMNIA UNSPECIFIED 07/21/2012 MAXIMINO KHANNA MD 780.52 INSOMNIA UNSPECIFIED 07/21/2012 ALINA MARIN DO 780.52 INSOMNIA UNSPECIFIED 07/21/2012 OJSESITO LUKE APRN 780.52 INSOMNIA UNSPECIFIED 07/21/2012 MARLENE GILLIAM APRN 780.52 INSOMNIA UNSPECIFIED 08/14/2012 ONEAL CROCKETT DO 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 08/14/2012 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 08/14/2012 MARIN DO, ALINA K 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 08/14/2012 ALINA MARIN DO K 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 08/14/2012 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 08/14/2012 JOSESITO LUKE APRN S 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 08/14/2012 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 08/14/2012 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 08/14/2012 ONEAL CROCKETT DO 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 08/14/2012 JOSESITO LUKE APRN S 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 08/14/2012 MAXIMINO KHANNA MD 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 08/14/2012 ALINA MARIN DO K 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 08/14/2012 JOSESITO LUKE APRN S 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 08/14/2012 MARLENE GILLIAM APRN 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 09/16/2012 ALINA MARIN DO K 611.71 BREAST PAIN 09/16/2012 ALINA MARIN DO K 611.71 BREAST PAIN 09/16/2012 611.71 BREAST PAIN 09/16/2012 JUAN RAMON LUKE APRNA S 611.71 BREAST PAIN 09/16/2012 611.71 BREAST PAIN 09/16/2012 611.71 BREAST PAIN 09/16/2012 ONEAL CROCKETT DO 611.71 BREAST PAIN 09/16/2012 JUAN RAMON LUKE APRNA S 611.71 BREAST PAIN 09/16/2012 MAXIMINO KHANNA MD 611.71 BREAST PAIN 09/16/2012 ALINA MARIN DO K 611.71 BREAST PAIN 09/16/2012 JOSESITO LUKE APRN S 611.71 BREAST PAIN 09/16/2012 MARLENE GILLIAM APRN 611.71 BREAST PAIN 10/14/2012 ALINA MARIN DO K 627.8 PERIMENOPAUSE 10/14/2012 ALINA MARIN DO V73.81 HPV SCREENING 10/14/2012 ALINA MARIN DO K V74.5 STD SCREEN 10/14/2012 ALINA MARIN DO V76.2 CERVICAL CANCER SCREENING (PAP SMEAR) 10/14/2012 627.8 PERIMENOPAUSE 10/14/2012 V73.81 HPV SCREENING 10/14/2012 V74.5 STD SCREEN 10/14/2012 V76.2 CERVICAL CANCER SCREENING (PAP SMEAR) 10/14/2012 JOSESITO LUKE APRN S 627.8 PERIMENOPAUSE 10/14/2012 JOSESITO LUKE APRN S V73.81 HPV SCREENING 10/14/2012 JUAN RAMON LUKE APRNA S V74.5 STD SCREEN 10/14/2012 JUAN RAMON LUKE APRNA S V76.2 CERVICAL CANCER SCREENING (PAP SMEAR) 10/14/2012 627.8 PERIMENOPAUSE 10/14/2012 V73.81 HPV SCREENING 10/14/2012 V74.5 STD SCREEN 10/14/2012 V76.2 CERVICAL CANCER SCREENING (PAP SMEAR) 10/14/2012 627.8 PERIMENOPAUSE 10/14/2012 V73.81 HPV SCREENING 10/14/2012 V74.5 STD SCREEN 10/14/2012 V76.2 CERVICAL CANCER SCREENING (PAP SMEAR) 10/14/2012 ONEAL CROCKETT DO 627.8 PERIMENOPAUSE 10/14/2012 ONEAL CROCKETT DO V73.81 HPV SCREENING 10/14/2012 ONEAL CROCKETT DO V74.5 STD SCREEN 10/14/2012 ONEAL CROCKETT DO V76.2 CERVICAL CANCER SCREENING (PAP SMEAR) 10/14/2012 JOSESITO LUKE APRN S 627.8 PERIMENOPAUSE 10/14/2012 JOSESITO LUKE APRN S V73.81 HPV SCREENING 10/14/2012 JUAN RAMON LUKE APRNA S V74.5 STD SCREEN 10/14/2012 JUAN RAMON LUKE APRNA S V76.2 CERVICAL CANCER SCREENING (PAP SMEAR) 10/14/2012 MAXIMINO KHANNA MD 627.8 PERIMENOPAUSE 10/14/2012 MAXIMINO KHANNA MD V73.81 HPV SCREENING 10/14/2012 MAXIMINO KHANNA MD V74.5 STD SCREEN 10/14/2012 MAXIMINO KHANNA MD V76.2 CERVICAL CANCER SCREENING (PAP SMEAR) 10/14/2012 MARIN DOAARONA K 627.8 PERIMENOPAUSE 10/14/2012 MARIN DO ALINA K V73.81 HPV SCREENING 10/14/2012 MARIN DO ALINA K V74.5 STD SCREEN 10/14/2012 ALINA MARIN DO V76.2 CERVICAL CANCER SCREENING (PAP SMEAR) 10/14/2012 JUAN RAMON LUKE APRNA S 627.8 PERIMENOPAUSE 10/14/2012 CHANEL LUKE APRNNDA S V73.81 HPV SCREENING 10/14/2012 CHANEL LUKE APRNNDA S V74.5 STD SCREEN 10/14/2012 CHANEL LUKE APRNNDA S V76.2 CERVICAL CANCER SCREENING (PAP SMEAR) 10/14/2012 TAWANA ONEILL MARLENE ELMOREH 627.8 PERIMENOPAUSE 10/14/2012 TAWANA ONEILL MARLENE KIN V73.81 HPV SCREENING 10/14/2012 TAWANA ONEILL MARLENE KIN V74.5 STD SCREEN 10/14/2012 TAWANA ONEILL MARLENE KIN V76.2 CERVICAL CANCER SCREENING (PAP SMEAR) 10/20/2012 296.80 MO BIPOLAR NOS 10/20/2012 JUAN RAMON LUKE APRNA S 296.80 MO BIPOLAR NOS 10/20/2012 296.80 MO BIPOLAR NOS 10/20/2012 296.80 MO BIPOLAR NOS 10/20/2012 ONEAL CROCKETT DO 296.80 MO BIPOLAR NOS 10/20/2012 JUAN RAMON LUKE APRNA S 296.80 MO BIPOLAR NOS 10/20/2012 MAXIMINO KHANNA MD 296.80 MO BIPOLAR NOS 10/20/2012 ALINA MARIN DO 296.80 MO BIPOLAR NOS 10/20/2012 CHANEL LUKE APRNNDA S 296.80 MO BIPOLAR NOS 10/20/2012 TAWANA ONEILL MARLENE ELMOREH 296.80 MO BIPOLAR NOS 01/24/2013 789.07 ABDOMINAL PAIN GENERALIZED 01/24/2013 ONEAL CROCKETT DO 789.07 ABDOMINAL PAIN GENERALIZED 01/24/2013 JUAN RAMON LUKE APRNA S 789.07 ABDOMINAL PAIN GENERALIZED 01/24/2013 MAXIMINO KHANNA MD 789.07 ABDOMINAL PAIN GENERALIZED 01/24/2013 ALINA MARIN DO 789.07 ABDOMINAL PAIN GENERALIZED 01/24/2013 JUAN RAMON LUKE APRNA S 789.07 ABDOMINAL PAIN GENERALIZED 01/24/2013 TAWANA ONEILL MARLENE KIN 789.07 ABDOMINAL PAIN GENERALIZED 03/03/2013 BON ONEAL F 787.03 VOMITING ALONE 03/03/2013 ONEAL CROCKETT DO F V40.2 OTHER MENTAL PROBLEMS 03/03/2013 JOSESITO LUKE APRN S 787.03 VOMITING ALONE 03/03/2013 JOSESITO LUKE APRN S V40.2 OTHER MENTAL PROBLEMS 03/03/2013 MAXIMINO KHANNA MD 787.03 VOMITING ALONE 03/03/2013 MAXIMINO KHANNA MD V40.2 OTHER MENTAL PROBLEMS 03/03/2013 AARON MARIN DOA K 787.03 VOMITING ALONE 03/03/2013 MARIN AARON HORTONA K V40.2 OTHER MENTAL PROBLEMS 03/03/2013 JOSESITO LUKE APRN S 787.03 VOMITING ALONE 03/03/2013 JOSESITO LUKE APRN S V40.2 OTHER MENTAL PROBLEMS 03/03/2013 TAWANA ONEILL MARLENE KIN 787.03 VOMITING ALONE 03/03/2013 MARLENE GILLIAM APRN V40.2 OTHER MENTAL PROBLEMS 05/20/2013 MAXIMINO KHANNA MD 923.00 CONTUSION OF SHOULDER REGION 05/20/2013 AARON MARIN DOA K 923.00 CONTUSION OF SHOULDER REGION 05/20/2013 JOSESITO LUKE APRN S 923.00 CONTUSION OF SHOULDER REGION 05/20/2013 TAWANA ONEILL MARLENE KIN 923.00 CONTUSION OF SHOULDER REGION 05/25/2013 AARON MARIN DOA K 112.1 CANDIDIASIS VAGINAL 05/25/2013 JOSESITO LUKE APRN S 112.1 CANDIDIASIS VAGINAL 05/25/2013 MARLENE GILLIAM APRN 112.1 CANDIDIASIS VAGINAL 09/26/2013 KALINA ADRIAN Ot 346.90 MIGRAINE UNSPECIFIED W/O INTRACT MGRN W/ 09/26/2013 KALINA ADRIAN Ot 473.9 CHRONIC SINUSITIS NOS 09/26/2013 KALINA ADRIAN Ot 784.0 HEADACHE 09/26/2013 KALINA ADRIAN Ot 786.52 PAINFUL RESPIRATION 09/26/2013 KALINA ADRIAN Ot 848.9 SPRAIN NOS 09/26/2013 KALINA ADRIAN Ot E000.8 OTHER EXTERNAL CAUSE STATUS 09/26/2013 KALINA ADRIAN Ot E928.9 ACCIDENT NOS 09/27/2013 TI MAIJOSESITO 786.05 SHORTNESS OF BREATH 09/27/2013 GILLIAM APRNMARLENE 786.05 SHORTNESS OF BREATH 11/12/2013 KUSUM ALTAORRE, KAVON Roman Ot 724.5 BACKACHE NOS 11/12/2013 KUSUM ALATORRE, KAVON Roman Ot 789.09 ABDOMINAL PAIN, OTHER SPECIFIED SITE 05/19/2015 V 637082 Abdominal Pain VUONG, DENNIS D 05/19/2015 V R10.32 Left lower quadrant pain VUONG, DENNIS D 07/20/2015 BRANDAU, BENNIE A V 12 Back Pain BRANDAU, BENNIE A 07/20/2015 BRANDAU, BENNIE A V [id number] Congestion BRANDAU, BENNIE A 07/20/2015 BRANDAU, BENNIE A V 52 Headache BRANDHA, BENNIE A 04/06/2016 LEACH, ANA K V Other LEACH, ANA K 04/06/2016 LEACH, ANA K V M79.601 Pain In Right Arm LEACH, ANA K 04/06/2016 LEACH, ANA K V M79.602 Pain In Left Arm LEACH, ANA K 04/06/2016 LEACH, ANA K V R20.2 Paresthesia of skin LEACH, NAA K 05/09/2016 BASSETT, P SELENA V 300701 Otalgia BASSETT, P SELENA 05/09/2016 BASSETT, P SELENA V M19.90 Unspecified osteoarthritis, unspecified site BASSETT, P SELENA 05/09/2016 BASSETT, P SELENA V M25.539 Pain in unspecified wrist BASSETT, P SELENA 06/07/2016 V 52 Headache VAIBHAV GALLAGHER 06/07/2016 V R11.0 Nausea VAIBHAV GALLAGHER 06/07/2016 V R51 Headache VAIBHAV GALLAGHER 06/25/2016 A K04.7 Periapical abscess without sinus 06/25/2016 A K08.89 Other specified disorders of teeth and supporting structures 08/15/2016 Drake Perez Final J02.9 Acute pharyngitis, unspecified 08/15/2016 Drake Perez Final R05 Cough 09/06/2016 BASSETT, P SELENA V 322 Low Back Pain BASSETT, P SELENA 09/06/2016 BASSETT, P SELENA V 52 Headache BASSETT, P SELENA 09/06/2016 BASSETT, P SELENA V B34.9 Viral infection, unspecified BASSETT, P SELENA 09/27/2016 SELENA PONCE WORKING R51 Headache 01/04/2017 MAXIMINO DUNN V 410539 Arm Pain MAXIMINO DUNN 01/04/2017 MAXIMINO DUNN V M77.9 Enthesopathy, unspecified MAXIMINO DUNN 03/30/2017 KAVON NOE MD Ot E11.9 TYPE 2 DIABETES MELLITUS WITHOUT COMPLIC 03/30/2017 KAVON NOE MD Ot F32.9 MAJOR DEPRESSIVE DISORDER, SINGLE EPISOD 03/30/2017 KAVON NOE MD Ot F41.8 OTHER SPECIFIED ANXIETY DISORDERS 03/30/2017 KAVON NOE MD Ot G47.00 INSOMNIA, UNSPECIFIED 03/30/2017 KAVON NOE MD Ot R06.02 SHORTNESS OF BREATH 03/30/2017 KAVON NOE MD Ot Z79.84 TAX AUDIT MANAGER (CURRENT) USE OF ORAL HYPOGLYC 03/30/2017 KAVON NOE MD Ot Z90.49 ACQUIRED ABSENCE OF OTHER SPECIFIED PART 03/30/2017 KAVON NOE MD Ot Z98.51 TUBAL LIGATION STATUS 04/03/2017 KAVON NOE MD Ot E11.9 TYPE 2 DIABETES MELLITUS WITHOUT COMPLIC 04/03/2017 KAVON NOE MD Ot F32.9 MAJOR DEPRESSIVE DISORDER, SINGLE EPISOD 04/03/2017 KAVON NOE MD Ot F41.8 OTHER SPECIFIED ANXIETY DISORDERS 04/03/2017 KAVON NOE MD Ot G47.00 INSOMNIA, UNSPECIFIED 04/03/2017 KAVON NOE MD Ot R06.02 SHORTNESS OF BREATH 04/03/2017 KAVON NOE MD Ot Z79.84 MCFP (CURRENT) USE OF ORAL HYPOGLYC 04/03/2017 KAVON NOE MD, Ot Z90.49 ACQUIRED ABSENCE OF OTHER SPECIFIED PART 04/03/2017 KAVON NOE MD, Ot Z98.51 TUBAL LIGATION STATUS 10/27/2017 SREEKANTH WILKINS RUBBER MOULDING MACHINE OPERATOR Ot N63.10 UNSPECIFIED LUMP IN THE RIGHT BREAST, UN 10/27/2017 SREEKANTH WILKINS R RUBBER MOULDING MACHINE OPERATOR Ot N63.21 UNSPECIFIED LUMP IN THE LEFT BREAST, UPP 11/13/2017 SREEKANTH WILKINS R RUBBER MOULDING MACHINE OPERATOR Ot N63.10 UNSPECIFIED LUMP IN THE RIGHT BREAST, UN 11/13/2017 SREEKANTH WILKINS R RUBBER MOULDING MACHINE OPERATOR Ot N63.21 UNSPECIFIED LUMP IN THE LEFT BREAST, UPP 12/17/2017 SREEKANTH WILKINS RUBBER MOULDING MACHINE OPERATOR Ot N63.10 UNSPECIFIED LUMP IN THE RIGHT BREAST, UN 12/17/2017 SREEKANTH WILKINS RUBBER MOULDING MACHINE OPERATOR Ot N63.21 UNSPECIFIED LUMP IN THE LEFT BREAST, UPP 12/17/2017 CASEY MANCIA MD Ot E11.9 TYPE 2 DIABETES MELLITUS WITHOUT COMPLIC 12/17/2017 CASEY MANCIA MD, Ot F32.9 MAJOR DEPRESSIVE DISORDER, SINGLE EPISOD 12/17/2017 CASEY MANCIA MD, Ot F41.9 ANXIETY DISORDER, UNSPECIFIED 12/17/2017 CASEY MANCIA MD, Ot N83.202 UNSPECIFIED OVARIAN CYST, LEFT SIDE 12/17/2017 CASEY MANCIA MD Ot R10.84 GENERALIZED ABDOMINAL PAIN 12/17/2017 CASEY MANCIA MD, Ot Z79.84 TAX AUDIT MANAGER (CURRENT) USE OF ORAL HYPOGLYC 12/17/2017 CASEY MANCIA MD, Ot Z87.59 PERSONAL HISTORY OF COMP OF PREG, CHLDBR 12/17/2017 CASEY MANCIA MD, Ot Z88.1 ALLERGY STATUS TO OTHER ANTIBIOTIC AGENT 12/17/2017 CASEY MANCIA MD, Ot Z88.8 ALLERGY STATUS TO OTH DRUG/MEDS/BIOL SUB 12/17/2017 CASEY MANCIA MD, Ot Z90.49 ACQUIRED ABSENCE OF OTHER SPECIFIED PART 12/17/2017 SREEKANTH WILKINS APRN Ot N63.10 UNSPECIFIED LUMP IN THE RIGHT BREAST, UN 12/17/2017 SREEKANTH WILKINS RUBBER MOULDING MACHINE OPERATOR Ot N63.21 UNSPECIFIED LUMP IN THE LEFT BREAST, UPP 12/21/2017 CASEY MANCIA MD, Ot E11.9 TYPE 2 DIABETES MELLITUS WITHOUT COMPLIC 12/21/2017 CASEY MANCIA MD, Ot F32.9 MAJOR DEPRESSIVE DISORDER, SINGLE EPISOD 12/21/2017 CASEY MANCIA MD, Ot F41.9 ANXIETY DISORDER, UNSPECIFIED 12/21/2017 CASEY MANCIA MD, Ot N83.202 UNSPECIFIED OVARIAN CYST, LEFT SIDE 12/21/2017 CASEY MANCIA MD, Ot R10.84 GENERALIZED ABDOMINAL PAIN 12/21/2017 CASEY MANCIA MD, Ot Z79.84 TAX AUDIT MANAGER (CURRENT) USE OF ORAL HYPOGLYC 12/21/2017 CASEY MANCIA MD, Ot Z87.59 PERSONAL HISTORY OF COMP OF PREG, CHLDBR 12/21/2017 CASEY MANCIA MD, Ot Z88.1 ALLERGY STATUS TO OTHER ANTIBIOTIC AGENT 12/21/2017 CASEY MANCIA MD, Ot Z88.8 ALLERGY STATUS TO OTH DRUG/MEDS/BIOL SUB 12/21/2017 CASEY MANCIA MD, Ot Z90.49 ACQUIRED ABSENCE OF OTHER SPECIFIED PART 01/27/2018 SREEKANTH WILKINS RUBBER MOULDING MACHINE OPERATOR Ot N63.10 UNSPECIFIED LUMP IN THE RIGHT BREAST, UN 01/27/2018 SREEKANTH WILKINS RUBBER MOULDING MACHINE OPERATOR Ot N63.21 UNSPECIFIED LUMP IN THE LEFT BREAST, UPP 02/01/2018 KAVON NOE MD Ot E11.9 TYPE 2 DIABETES MELLITUS WITHOUT COMPLIC 02/01/2018 KAVON NOE MD, Ot F32.9 MAJOR DEPRESSIVE DISORDER, SINGLE EPISOD 02/01/2018 KAVON NOE MD, Ot F41.9 ANXIETY DISORDER, UNSPECIFIED 02/01/2018 KAVON NOE MD, Ot G47.9 SLEEP DISORDER, UNSPECIFIED 02/01/2018 KAVON NOE MD Ot R21 RASH AND OTHER NONSPECIFIC SKIN ERUPTION 02/01/2018 KAVON NOE MD Ot R51 HEADACHE 02/01/2018 KAVON NOE MD, Ot T14.8XXA OTHER INJURY OF UNSPECIFIED BODY REGION, 02/01/2018 KAVON NOE MD, Ot W57.XXXA BIT/STUNG BY NONVENOM INSECT OTH NONVE 02/01/2018 KAVON NOE MD, Ot Z79.84 TAX AUDIT MANAGER (CURRENT) USE OF ORAL HYPOGLYC 02/01/2018 KAVON NOE MD, Ot Z88.1 ALLERGY STATUS TO OTHER ANTIBIOTIC AGENT 02/01/2018 KAVON NOE MD, Ot Z88.8 ALLERGY STATUS TO [facility] DRUG/MEDS/BIOL SUB 02/01/2018 KAVON NOE MD, Ot Z90.49 ACQUIRED ABSENCE OF OTHER SPECIFIED PART 02/01/2018 KAVON NOE MD, Ot Z98.51 TUBAL LIGATION STATUS Procedures Code Description Performed By Performed On Psychiatr Sarai Brito 06/23/2012 82958 A1C (IN-HOUSE) 06/23/2012 02920 PSYCH DIAG INTER EXAM 07/07/2012 75957 SLEEP STUDY 07/07/2012 45449 EKG, TRACING (IN-HOUSE) 07/14/2012 11509 TRICHOMONAS (IN-HOUSE) 10/14/2012 36365 GC/CHLAM PROBE ([facility]) 10/15/2012 64300 PAP SMEAR 10/15/2012 Q0091 PAP SMEAR OBTAIN SMEAR 10/15/2012 09239 CULTURE UROGENITAL 10/15/2012 95626 UA W/ CULTURE IF INDICATED 01/21/2013 J2550 PHENERGAN INJECTION UP TO 50 MG 01/24/2013 88459 THERAPUTIC INJ SQ/IM 01/24/2013 70601 A1C (IN-HOUSE) 05/11/2013 11422 MICRO ALBUMIN-IN HOUSE 05/11/2013 82899 XRAY SHOULDER LEFT COMP 2 VIEWS 05/20/2013 23776 THERAPUTIC INJ SQ/IM 05/25/2013 65012 UA W/ CULTURE IF INDICATED 05/25/2013 34410 Emergency department visit for the evalu FREEDOM BARKLEY 08/15/2016 Results Test Result Range CBC WITH DIFF - 10/31/14 16:45 WBC 3.3 10*3/uL 4.3-10.8 RBC 4.45 10*6/uL 4.20-5.40 HGB 13.3 g/dL 12.0-16.0 HCT 38.8 % 37-47 MCV 87 fL 81-99 MCH 30 pg 26-34 MCHC 34 g/dL 31-37 PLATELET COUNT 340 10*3/uL 150-400 RDWCV 13.4 % 11.5-14.5 DIFF TYPE AUTOMATED DIFF NEUTROPHIL % 53 % 36-66 LYMPHOCYTE % 36 % 24-44 MONOCYTE % 9 % 1-10 EOSINOPHIL % 1 % 0-6 BASOPHIL % 1 % 0-2 ABS. NEUTROPHILS 1.7 10*3/uL 1.55-7.13 ABS. LYMPHOCYTES 1.2 10*3/uL 1.0-4.8 ABS. MONOCYTES 0.3 10*3/uL 0.4-1.08 ABS. EOSINOPHILS 0.0 10*3/uL 0.0-0.65 ABS. BASOPHILS 0.0 10*3/uL 0.0-0.11 ABSOLUTE NUCLEATED RBC 0.00 10*3/uL PERCENT NUCLEATED RBC 0 BASIC METABOLIC PANEL - 10/31/14 16:45 POTASSIUM 4.2 mmol/L 3.5-5.1 CALCIUM 8.6 mg/dL 8.6-10.6 GLUCOSE 108 mg/dL 70-115 BUN 7 mg/dL 8-22 CREATININE 0.7 mg/dL 0.6-1.1 SODIUM 136 mmol/L 136-145 CHLORIDE 110 mmol/L 98-110 CO2 18 mmol/L 22-29 GFR ESTIMATED NOT AFR/AM >60 GFR ESTIMATED IF AFR/AM >60 ANION GAP 8 5-15 URINALYSIS POC - 10/31/14 16:49 COLOR, URINE POCT YELLOW APPEARANCE, URINE POCT CLEAR GLUCOSE, URINE POCT NEGATIVE mg/dL NEGATIVE BILIRUBIN, URINE POCT NEGATIVE NEGATIVE KETONES, URINE POCT NEGATIVE mg/dL NEGATIVE SPECIFIC GRAVITY, URINE POCT 1.020 1.005-1.030 BLOOD, URINE POCT TRACE LYSED NEGATIVE PH, URINE POCT 5.5 5.0-9.0 PROTEIN, URINE POCT NEGATIVE mg/dL NEGATIVE UROBILINOGEN, URINE POCT 0.2 EhrlichU/dL 0.2-1.0 NITRITES, URINE POCT NEGATIVE NEGATIVE LEUKOCYTES, URINE POCT NEGATIVE NEGATIVE POC URINE TEST, QUAL - 10/31/14 16:50 POC URINE TEST NEGATIVE URINALYSIS AUTOMATED W MICROSCOPY - 11/07/14 18:42 SPECIMEN VOIDED URINE COLOR LIGHT YELLOW APPEARANCE CLEAR CLEAR SPECIFIC GRAVITY 1.006 1.005-1.030 PH, URINE 5.5 5.0-9.0 PROTEIN NEGATIVE mg/dL NEGATIVE GLUC NEGATIVE mg/dL NEGATIVE KETONES NEGATIVE mg/dL NEGATIVE BILIRUBIN NEGATIVE NEGATIVE BLOOD NEGATIVE NEGATIVE NITRITE NEGATIVE NEGATIVE UROBILINOGEN NORMAL mg/dL NORMAL LEUKOCYTE ESTERASE NEGATIVE NEGATIVE WBC'S 2 [HPF] 0-4 RBC'S 1 [HPF] 0-1 MUCUS RARE [LPF] SQUAMOUS EPITHELIAL CELLS 4 [LPF] 0-1 AMORPHOUS CRYSTALS RARE [LPF] HCG URINE - 11/07/14 18:42 PREG TEST, URINE NEGATIVE INFLUENZA A/B ANTIGEN - 11/07/14 18:42 INFLUENZA TYPE A NEGATIVE NEGATIVE INFLUENZA TYPE B NEGATIVE NEGATIVE COMPREHENSIVE METABOLIC PANEL - 11/07/14 18:43 POTASSIUM 4.2 mmol/L 3.5-5.1 CALCIUM 9.2 mg/dL 8.6-10.6 GLUCOSE 102 mg/dL 70-115 BUN 10 mg/dL 8-22 CREATININE 0.7 mg/dL 0.6-1.1 SODIUM 137 mmol/L 136-145 CHLORIDE 104 mmol/L 98-110 CO2 23 mmol/L 22-29 GFR ESTIMATED NOT AFR/AM >60 GFR ESTIMATED IF AFR/AM >60 ALT-SGPT 103 U/L 0-55 AST-SGOT 49 U/L 5-34 TOTAL PROTEIN,SERUM 7.3 g/dL 6-8.3 ALBUMIN 4.0 g/dL 3.6-5.3 ALKALINE PHOSPHATASE 130 U/L 40-150 TOTAL BILIRUBIN 0.3 mg/dL 0.2-1.2 ANION GAP 10 5-15 GLOBULIN, CALCULATED 3.3 g/dL A/G RATIO 1.2 ratio 1-1.8 LIPASE - 11/07/14 18:43 LIPASE 12 U/L 8-78 CBC WITH DIFF - 11/07/14 18:43 WBC 10.6 10*3/uL 4.3-10.8 RBC 4.27 10*6/uL 4.20-5.40 HGB 12.3 g/dL 12.0-16.0 HCT 37.4 % 37-47 MCV 88 fL 81-99 MCH 29 pg 26-34 MCHC 33 g/dL 31-37 PLATELET COUNT 441 10*3/uL 150-400 RDWCV 13.7 % 11.5-14.5 DIFF TYPE MANUAL DIFF SEG NEUTROPHILS 61 % 36-66 BAND NEUTROPHILS 11 % 5-11 LYMPHOCYTES 24 % 24-44 EOSINOPHILS 1 % 0-10 NEUTROPHILS, ABSOLUTE 7.7 10*3/uL 1.55-7.13 LYMPHOCYTES, ABSOLUTE 2.5 10*3/uL 1.0-4.8 EOSINOPHILS, ABSOLUTE 0.1 10*3/uL 0.0-0.65 PLATELET ESTIMATE SEE NOTES MONOCYTES 3 % 1-10 MONOCYTES, ABSOLUTE 0.3 10*3/uL 0.4-1.08 VAGINITIS SCREEN - 10/02/15 11:15 [id number] Negative [id number] Negative [id number] Positive NEISSERIA GONORRHOEAE AMPLIFIED PROBE - 10/02/15 11:15 [id number] Negative Negative CHLAMYDIA TRACHOMATIS AMPLIFIED PROBE - 10/02/15 11:15 [id number] Negative Negative CBC WITH AUTO DIFFERENTIAL - 11/07/15 09:50 BASOPHILS RELATIVE PERCENT 0.4 % 0.0-2.5 EOSINOPHILS RELATIVE PERCENT 1.4 % <=5.0 HEMATOCRIT 37.1 % 34.9-44.5 HEMOGLOBIN 12.0 g/dL 12.0-15.5 LYMPHOCYTES RELATIVE PERCENT 24.2 % 22.0-49.0 MEAN CORPUSCULAR HEMOGLOBIN 28.7 pg 26.0-34.0 MEAN CORPUSCULAR HEMOGLOBIN CONC 32.3 g/dL 31.0-37.0 MEAN CORPUSCULAR VOLUME 88.6 fL 81.6-98.3 MONOCYTES RELATIVE PERCENT 6.2 % 2.0-9.0 NEUTROPHILS RELATIVE PERCENT 67.8 % 40.0-75.0 PLATELET COUNT 434 10E9/L 150-450 RED BLOOD CELL COUNT 4.19 10E12/L 3.90-5.03 RED CELL DISTRIBUTION WIDTH 13.6 % 11.9-15.5 [id number] 13.0 10E9/L 3.5-10.5 7977575 3.20 10E9/L 0.90-2.90 6785606 0.80 10E9/L 0.30-0.90 0257840 0.20 10E9/L 0.05-0.50 6721571 8.80 10E9/L 1.70-7.00 6305532 0.10 10E9/L 0.00-0.30 PT T APTT - 11/07/15 09:50 APTT 26.6 sec. 25.0-36.0 INR 0.90 INR PROTHROMBIN TIME 12.5 sec. 11.8-14.8 HCG SERUM(QUAL), REFLEX - 11/07/15 09:50 HCG SERUM(QUAL), REFLEX Negative mIU/mL COMPREHENSIVE METABOLIC PANEL - 11/07/15 09:50 ALBUMIN 4.2 g/dL 3.4-4.8 ALKALINE PHOSPHATASE 75 U/L 29-122 ALT 31 U/L 10-46 AST 28 U/L 16-37 BILIRUBIN,TOTAL < mg/dL 0.2-1.3 BUN BLOOD 15 mg/dL 6-20 CALCIUM 9.5 mg/dL 8.7-10.5 CHLORIDE 103 mmol/L 99-111 CO2 26 mmol/L 20-36 CREATININE 0.63 mg/dL 0.40-1.10 EGFR > mL/min >59 GLUCOSE 124 mg/dL 74-106 POTASSIUM 4.1 mmol/L 3.6-4.9 PROTEIN TOTAL 7.9 g/dL 6.4-8.3 SODIUM 137 mmol/L 136-145 URINALYSIS, REFLEX CULTURE IF NEEDED - 11/07/15 10:00 APPEARANCE Clear [none] BILIRUBIN UA Negative Negative COLOR Colorless [none] GLUCOSE UA Negative Negative HEMOGLOBIN UA Trace Negative LEUKOCYTE ESTERASE UA Negative Negative NITRATE UA Negative Negative PH UA 5.0 5.0-8.0 PROTEIN UA Negative Negative RBC UA 0-3 /HPF 0-3 SPECIFIC GRAVITY UA 1.003 1.003-1.030 SQUAMOUS EPITHELIAL 2+ 1+ UROBILINOGEN UA 0.2 mg/dL 0.2 WBC UA 0-3 /HPF 0-3 [id number] Negative Negative CHLAMYDIA TRACHOMATIS AMPLIFIED PROBE - 11/07/15 12:10 [id number] Negative Negative NEISSERIA GONORRHOEAE AMPLIFIED PROBE - 11/07/15 12:10 [id number] Negative Negative SEDIMENTATION RATE, MANUAL - 05/09/16 08:51 [id number] 35 mm/Hr <=20 C-REACTIVE PROTEIN - 05/09/16 08:51 [id number] 1.1 mg/dL <=0.9 COMPREHENSIVE METABOLIC PANEL - 05/09/16 08:51 ALBUMIN 3.8 g/dL 3.4-4.8 ALKALINE PHOSPHATASE 65 U/L 29-122 ALT 25 U/L 10-46 AST 23 U/L 16-37 BILIRUBIN,TOTAL < mg/dL 0.2-1.3 BUN BLOOD 11 mg/dL 6-20 CALCIUM 8.9 mg/dL 8.7-10.5 CHLORIDE 107 mmol/L 99-111 CO2 26 mmol/L 20-36 CREATININE 0.72 mg/dL 0.40-1.10 EGFR > mL/min >59 GLUCOSE 138 mg/dL 74-106 POTASSIUM 4.0 mmol/L 3.6-4.9 PROTEIN TOTAL 7.3 g/dL 6.4-8.3 SODIUM 138 mmol/L 136-145 RHEUMATOID FACTOR - 05/09/16 08:51 RHEUMATOID FACTOR Negative titer LYME ANTIBODIES IGM/IGG - 05/09/16 08:51 LYME ANTIBODIES IGM/IGG Negative Negative CBC WITH AUTO DIFFERENTIAL - 06/07/16 14:49 BASOPHILS RELATIVE PERCENT 0.5 % 0.0-2.5 EOSINOPHILS RELATIVE PERCENT 1.1 % <=5.0 HEMATOCRIT 39.5 % 34.9-44.5 HEMOGLOBIN 12.8 g/dL 12.0-15.5 LYMPHOCYTES RELATIVE PERCENT 29.1 % 22.0-49.0 MEAN CORPUSCULAR HEMOGLOBIN 28.7 pg 26.0-34.0 MEAN CORPUSCULAR HEMOGLOBIN CONC 32.3 g/dL 31.0-37.0 MEAN CORPUSCULAR VOLUME 88.7 fL 81.6-98.3 MONOCYTES RELATIVE PERCENT 6.0 % 2.0-9.0 NEUTROPHILS RELATIVE PERCENT 63.3 % 40.0-75.0 PLATELET COUNT 434 10E9/L 150-450 RED BLOOD CELL COUNT 4.45 10E12/L 3.90-5.03 RED CELL DISTRIBUTION WIDTH 14.1 % 11.9-15.5 [id number] 14.5 10E9/L 3.5-10.5 0271488 4.20 10E9/L 0.90-2.90 8705006 0.90 10E9/L 0.30-0.90 7424072 0.20 10E9/L 0.05-0.50 2444498 9.20 10E9/L 1.70-7.00 8167941 0.10 10E9/L 0.00-0.30 COMPREHENSIVE METABOLIC PANEL - 06/07/16 14:49 ALBUMIN 4.2 g/dL 3.4-4.8 ALKALINE PHOSPHATASE 70 U/L 29-122 ALT 26 U/L 10-46 AST 25 U/L 16-37 BILIRUBIN,TOTAL < mg/dL 0.2-1.3 BUN BLOOD 11 mg/dL 6-20 CALCIUM 9.4 mg/dL 8.7-10.5 CHLORIDE 104 mmol/L 99-111 CO2 26 mmol/L 20-36 CREATININE 0.73 mg/dL 0.40-1.10 EGFR > mL/min >59 GLUCOSE 91 mg/dL 74-106 POTASSIUM 3.9 mmol/L 3.6-4.9 PROTEIN TOTAL 7.9 g/dL 6.4-8.3 SODIUM 138 mmol/L 136-145 URINE CULTURE - 06/07/16 15:39 [id number] Urogenital jah URINALYSIS, REFLEX CULTURE IF NEEDED - 09/06/16 17:30 APPEARANCE Clear [none] BILIRUBIN UA Negative Negative COLOR Yellow [none] GLUCOSE UA Negative Negative HEMOGLOBIN UA Negative Negative LEUKOCYTE ESTERASE UA Negative Negative NITRATE UA Negative Negative PH UA 7.5 5.0-8.0 PROTEIN UA Negative Negative RBC UA 0-3 0-3 SPECIFIC GRAVITY UA 1.013 1.003-1.030 SQUAMOUS EPITHELIAL 2+ 1+ UROBILINOGEN UA 0.2 mg/dL 0.2 WBC UA 0-3 /HPF 0-3 [id number] Negative Negative STREP SCREEN CONFIRMATION - 09/06/16 17:31 [id number] Negative CBC With Differential/Platelet - 03/30/17 11:45 WBC 13.3 x10E3/uL 3.4-10.8 RBC 4.75 x10E6/uL 3.77-5.28 Hemoglobin 13.5 g/dL 11.1-15.9 Hematocrit 40.4 % 34.0-46.6 MCV 85 fL 79-97 MCH 28.4 pg 26.6-33.0 MCHC 33.4 g/dL 31.5-35.7 RDW 13.8 % 12.3-15.4 Platelets 502 x10E3/uL 150-379 Neutrophils 64 % Lymphs 31 % Monocytes 5 % Eos 0 % Basos 0 % Neutrophils (Absolute) 8.3 x10E3/uL 1.4-7.0 Lymphs (Absolute) 4.2 x10E3/uL 0.7-3.1 Monocytes(Absolute) 0.7 x10E3/uL 0.1-0.9 Eos (Absolute) 0.1 x10E3/uL 0.0-0.4 Baso (Absolute) 0.0 x10E3/uL 0.0-0.2 Immature Granulocytes 0 % Immature Grans (Abs) 0.0 x10E3/uL 0.0-0.1 Comp. Metabolic Panel (14) - 03/30/17 11:45 Glucose, Serum 97 mg/dL 65-99 BUN 10 mg/dL 6-24 Creatinine, Serum 0.67 mg/dL 0.57-1.00 eGFR If NonAfricn Am 107 mL/min/1.73 >59 eGFR If Africn Am 124 mL/min/1.73 >59 BUN/Creatinine Ratio 15 9-23 Sodium, Serum 140 mmol/L 134-144 Potassium, Serum 4.4 mmol/L 3.5-5.2 Chloride, Serum 101 mmol/L 96-106 Carbon Dioxide, Total 20 mmol/L 18-29 Calcium, Serum 9.7 mg/dL 8.7-10.2 Protein, Total, Serum 7.9 g/dL 6.0-8.5 Albumin, Serum 4.3 g/dL 3.5-5.5 Globulin, Total 3.6 g/dL 1.5-4.5 A/G Ratio 1.2 1.2-2.2 Bilirubin, Total 0.3 mg/dL 0.0-1.2 Alkaline Phosphatase, S 66 IU/L 39-117 AST (SGOT) 21 IU/L 0-40 ALT (SGPT) 15 IU/L 0-32 Lipid Panel - 03/30/17 11:45 Cholesterol, Total 176 mg/dL 100-199 Triglycerides 99 mg/dL 0-149 HDL Cholesterol 39 mg/dL >39 VLDL Cholesterol Jv 20 mg/dL 5-40 LDL Cholesterol Calc 117 mg/dL 0-99 TSH - 03/30/17 11:45 TSH 1.050 uIU/mL 0.450-4.500 LIPID PANEL - 04/28/17 09:40 Cholesterol, Total 181 mg/dL 100-199 Triglycerides 97 mg/dL 0-149 HDL Cholesterol 35 mg/dL >39 VLDL Cholesterol Jv 19 mg/dL 5-40 LDL Cholesterol Calc 127 mg/dL 0-99 CMP - 04/28/17 09:40 Glucose, Serum 125 mg/dL 65-99 BUN 9 mg/dL 6-24 Creatinine, Serum 0.81 mg/dL 0.57-1.00 eGFR If NonAfricn Am 89 mL/min/1.73 >59 eGFR If Africn Am 102 mL/min/1.73 >59 BUN/Creatinine Ratio 11 9-23 Sodium, Serum 141 mmol/L 134-144 Potassium, Serum 4.2 mmol/L 3.5-5.2 Chloride, Serum 101 mmol/L 96-106 Carbon Dioxide, Total 23 mmol/L 18-29 Calcium, Serum 9.4 mg/dL 8.7-10.2 Protein, Total, Serum 7.7 g/dL 6.0-8.5 Albumin, Serum 4.3 g/dL 3.5-5.5 Globulin, Total 3.4 g/dL 1.5-4.5 A/G Ratio 1.3 1.2-2.2 Bilirubin, Total 0.2 mg/dL 0.0-1.2 Alkaline Phosphatase, S 73 IU/L 39-117 AST (SGOT) 22 IU/L 0-40 ALT (SGPT) 24 IU/L 0-32 CBC With Differential/Platelet - 04/28/17 09:40 WBC 12.0 x10E3/uL 3.4-10.8 RBC 4.68 x10E6/uL 3.77-5.28 Hemoglobin 13.2 g/dL 11.1-15.9 Hematocrit 38.9 % 34.0-46.6 MCV 83 fL 79-97 MCH 28.2 pg 26.6-33.0 MCHC 33.9 g/dL 31.5-35.7 RDW 13.8 % 12.3-15.4 Platelets 515 x10E3/uL 150-379 Neutrophils 64 % Lymphs 29 % Monocytes 5 % Eos 1 % Basos 1 % Neutrophils (Absolute) 7.8 x10E3/uL 1.4-7.0 Lymphs (Absolute) 3.5 x10E3/uL 0.7-3.1 Monocytes(Absolute) 0.6 x10E3/uL 0.1-0.9 Eos (Absolute) 0.1 x10E3/uL 0.0-0.4 Baso (Absolute) 0.1 x10E3/uL 0.0-0.2 Immature Granulocytes 0 % Immature Grans (Abs) 0.0 x10E3/uL 0.0-0.1 Comp. Metabolic Panel (14) - 04/28/17 09:40 Glucose, Serum 125 mg/dL 65-99 BUN 9 mg/dL 6-24 Creatinine, Serum 0.81 mg/dL 0.57-1.00 eGFR If NonAfricn Am 89 mL/min/1.73 >59 eGFR If Africn Am 102 mL/min/1.73 >59 BUN/Creatinine Ratio 11 9-23 Sodium, Serum 141 mmol/L 134-144 Potassium, Serum 4.2 mmol/L 3.5-5.2 Chloride, Serum 101 mmol/L 96-106 Carbon Dioxide, Total 23 mmol/L 18-29 Calcium, Serum 9.4 mg/dL 8.7-10.2 Protein, Total, Serum 7.7 g/dL 6.0-8.5 Albumin, Serum 4.3 g/dL 3.5-5.5 Globulin, Total 3.4 g/dL 1.5-4.5 A/G Ratio 1.3 1.2-2.2 Bilirubin, Total 0.2 mg/dL 0.0-1.2 Alkaline Phosphatase, S 73 IU/L 39-117 AST (SGOT) 22 IU/L 0-40 ALT (SGPT) 24 IU/L 0-32 Lipid Panel - 04/28/17 09:40 Cholesterol, Total 181 mg/dL 100-199 Triglycerides 97 mg/dL 0-149 HDL Cholesterol 35 mg/dL >39 VLDL Cholesterol Jv 19 mg/dL 5-40 LDL Cholesterol Calc 127 mg/dL 0-99 Hemoglobin A1c - 04/28/17 09:40 Hemoglobin A1c 6.7 % 4.8-5.6 Thyroid [place] Profile - 04/28/17 09:40 TSH 1.670 uIU/mL 0.450-4.500 CULTURE, URINE - 12/15/17 16:28 CULTURE, URINE, ROUTINE SEE NOTE NRG Complete urinalysis with reflex to culture - 12/17/17 12:55 Urine color determination YELLOW NRG Urine clarity determination CLEAR NRG Urine pH measurement by test strip 8 5-9 Specific gravity of urine by test strip 1.010 1.016- 1.022 Urine protein assay by test strip, semi-quantitative NEGATIVE NEGATIVE Urine glucose detection by automated test strip NEGATIVE NEGATIVE Erythrocytes detection in urine sediment by light microscopy NEGATIVE NEGATIVE Urine ketones detection by automated test strip NEGATIVE NEGATIVE Urine nitrite detection by test strip NEGATIVE NEGATIVE Urine total bilirubin detection by test strip NEGATIVE NEGATIVE Urine urobilinogen measurement by automated test strip (mass/volume) NORMAL NORMAL Urine leukocyte esterase detection by dipstick 1+ NEGATIVE Automated urine sediment erythrocyte count by microscopy (number/high power field) RARE NRG Automated urine sediment leukocyte count by microscopy (number/high power field ) [HPF] NRG Bacteria detection in urine sediment by light microscopy NEGATIVE NRG Squamous epithelial cells detection in urine sediment by light microscopy 25-50 NRG Crystals detection in urine sediment by light microscopy NONE NRG Casts detection in urine sediment by light microscopy NONE NRG Mucus detection in urine sediment by light microscopy NEGATIVE NRG Complete urinalysis with reflex to culture NO NRG Renal epithelial cells detection in urine sediment by light microscopy NONE NRG Complete blood count (CBC) with automated white blood cell (WBC) differential - 12/17/17 12:58 Blood leukocytes automated count (number/volume) 14.4 10*3/uL 4.3-11.0 Blood erythrocytes automated count (number/volume) 4.26 10*6/uL 4.35-5.85 Venous blood hemoglobin measurement (mass/volume) 12.3 g/dL 11.5-16.0 Blood hematocrit (volume fraction) 37 % 35-52 Automated erythrocyte mean corpuscular volume 86 [foz_us] 80-99 Automated erythrocyte mean corpuscular hemoglobin (mass per erythrocyte) 29 pg 25-34 Automated erythrocyte mean corpuscular hemoglobin concentration measurement ( mass/volume) 34 g/dL 32-36 Automated erythrocyte distribution width ratio 13.3 % 10.0-14.5 Automated blood platelet count (count/volume) 498 10*3/uL 130-400 Automated blood platelet mean volume measurement 10.7 [foz_us] 7.4-10.4 Automated blood neutrophils/100 leukocytes 69 % 42-75 Automated blood lymphocytes/100 leukocytes 25 % 12-44 Blood monocytes/100 leukocytes 5 % 0-12 Automated blood eosinophils/100 leukocytes 1 % 0-10 Automated blood basophils/100 leukocytes 1 % 0-10 Blood neutrophils automated count (number/volume) 9.9 10*3 1.8-7.8 Blood lymphocytes automated count (number/volume) 3.6 10*3 1.0-4.0 Blood monocytes automated count (number/volume) 0.7 10*3 0.0-1.0 Automated eosinophil count 0.1 10*3/uL 0.0-0.3 Automated blood basophil count (count/volume) 0.1 10*3/uL 0.0-0.1 Comprehensive metabolic panel - 12/17/17 12:58 Serum or plasma sodium measurement (moles/volume) 139 mmol/L 135-145 Serum or plasma potassium measurement (moles/volume) 3.9 mmol/L 3.6-5.0 Serum or plasma chloride measurement (moles/volume) 106 mmol/L 98-107 Carbon dioxide 24 mmol/L 21-32 Serum or plasma anion gap determination (moles/volume) 9 mmol/L 5-14 Serum or plasma urea nitrogen measurement (mass/volume) 9 mg/dL 7-18 Serum or plasma creatinine measurement (mass/volume) 0.82 mg/dL 0.60-1.30 Serum or plasma urea nitrogen/creatinine mass ratio 11 NRG Serum or plasma creatinine measurement with calculation of estimated glomerular filtration rate > NRG Serum or plasma glucose measurement (mass/volume) 134 mg/dL 70-105 Serum or plasma calcium measurement (mass/volume) 8.9 mg/dL 8.5-10.1 Serum or plasma total bilirubin measurement (mass/volume) 0.3 mg/dL 0.1-1.0 Serum or plasma alkaline phosphatase measurement (enzymatic activity/volume) 67 U/L 40-136 Serum or plasma aspartate aminotransferase measurement (enzymatic activity/ volume) 21 U/L 5-34 Serum or plasma alanine aminotransferase measurement (enzymatic activity/volume ) 18 U/L 0-55 Serum or plasma protein measurement (mass/volume) 7.6 g/dL 6.4-8.2 Serum or plasma albumin measurement (mass/volume) 4.1 g/dL 3.2-4.5 Blood manual differential performed detection - 12/17/17 12:58 Blood monocytes/100 leukocytes 3 % NRG Manual blood segmented neutrophils/100 leukocytes 66 % NRG Blood band neutrophils/100 leukocytes 0 % NRG Manual blood lymphocytes/100 leukocytes 26 % NRG Manual eosinophils/100 leukocytes in nose 1 % NRG Manual blood basophils/100 leukocytes 1 % NRG Blood lymphocytes variant/100 leukocytes 3 % NRG Blood rouleaux detection by light microscopy SLIGHT NRG Encounters ACCT No. Visit Date/Time Discharge Status Pt. Type Provider Facility Loc./Unit Complaint [id number] 01/04/2017 08:02:44 01/04/2017 08:35:00 DIS Emergency MAXIMINO DUNN [facility] [id number] 09/06/2016 17:04:47 09/06/2016 19:01:00 DIS Emergency Darian REYNOLDS [facility] [id number] 05/09/2016 08:02:00 05/09/2016 12:17:00 DIS Emergency Darian REYNOLDS [facility] [id number] 04/06/2016 16:17:58 04/06/2016 17:37:00 DIS Emergency HAYLEE ANA Avery [facility] [id number] 11/07/2015 09:16:36 11/07/2015 12:27:00 DIS Emergency Darian REYNOLDS [facility] [id number] 10/23/2015 15:42:24 10/23/2015 23:59:59 CLS Outpatient [facility] [id number] 10/21/2015 17:19:05 10/21/2015 23:59:59 CLS Outpatient [facility] [id number] 10/02/2015 10:17:23 10/02/2015 23:59:59 CLS Outpatient MARGARITO RAMIRES [facility] [id number] 09/25/2015 09:05:41 09/25/2015 23:59:59 CLS Outpatient [facility] EXP [id number] 07/20/2015 15:15:02 07/20/2015 23:59:59 CLS Outpatient BENNIE LOPEZ [facility] [id number] 06/07/2016 14:04:27 Document Registration [id number] 10/12/2015 15:33:36 Document Registration [id number] 10/02/2015 11:24:39 Document Registration [id number] 07/03/2015 13:44:27 Document Registration [id number] 02/16/2018 10:40:00 ACT Outpatient SREEKANTH WILKINS [facility] [id number] 12/15/2017 15:00:00 Document Registration [id number] 04/28/2017 08:40:00 Document Registration [id number] 08/15/2016 09:53:00 08/15/2016 11:23:00 DIS Emergency Drake Perez [facility] ER EENT [id number] 01/27/2018 14:25:00 01/27/2018 17:24:00 DIS Outpatient KAVON NOE MD [facility] ER RT SIDE RASH [id number] 01/05/2018 10:45:00 01/05/2018 23:59:59 CLS Preadmit 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 CYST OF OVARY, UNSPECIFIED LATERALITY [id number] 12/17/2017 12:38:00 12/17/2017 16:32:00 DIS Emergency CASEY MANCIA MD [facility] ER ABD PAIN [id number] 10/26/2017 13:14:00 10/26/2017 23:59:59 CLS Outpatient 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 LUMP OF RT BREAST [id number] 03/30/2017 14:45:00 03/30/2017 17:12:00 DIS Emergency KAVON NOE MD [facility] ER SOA [id number] 11/12/2013 00:01:00 11/12/2013 02:34:00 DIS Emergency KAVON NOE MD [facility] ER BACK PAIN [id number] 09/26/2013 15:26:00 09/26/2013 19:55:00 DIS Emergency KALINA ADRIAN [facility] ER HEADACHE [id number] 02/17/2018 11:59:00 ACT Emergency CASEY MANCIA MD [facility] ER ABD PAIN,VOMITING [id number] 07/17/2012 16:04:00 Document Registration [id number] 01/15/2012 05:56:00 Document Registration [id number] 10/06/2016 06:03:32 ACT Document Registration [id number] 10/10/2013 13:56:00 10/10/2013 23:59:59 CLS Outpatient MARLENE GILLIAM APRN [id number] 09/27/2013 10:43:00 09/27/2013 23:59:59 CLS Outpatient JOSESITO LUKE APRN [id number] 05/25/2013 11:17:00 05/25/2013 23:59:59 CLS Outpatient ALINA MARIN DO Gena [id number] 05/20/2013 10:35:00 05/20/2013 23:59:59 CLS Outpatient MAXIMINO KHANNA MD [id number] 05/11/2013 10:41:00 05/11/2013 23:59:59 CLS Outpatient JOSESITO LUKE APRN [id number] 03/03/2013 17:12:00 03/03/2013 23:59:59 CLS Outpatient ONEAL CROCKETT DO [id number] 10/26/2012 09:50:00 10/26/2012 23:59:59 CLS Outpatient JOSESITO LUKE APRN [id number] 10/20/2012 11:47:00 10/20/2012 23:59:59 CLS Outpatient [id number] 10/14/2012 09:46:00 10/14/2012 23:59:59 CLS Outpatient MARIN ALINA HORTON [id number] 09/16/2012 10:21:00 09/16/2012 23:59:59 CLS Outpatient MARIN ALINA HORTON [id number] 09/02/2012 11:15:00 09/02/2012 23:59:59 CLS Outpatient [id number] 08/14/2012 10:00:00 08/14/2012 23:59:59 CLS Outpatient ONEAL CROCKETT DO [id number] 07/08/2012 16:54:00 07/08/2012 23:59:59 CLS Outpatient ONEAL CROCKETT DO [id number] 07/06/2012 15:30:00 07/06/2012 23:59:59 CLS Outpatient [id number] 05/20/2012 13:51:00 05/20/2012 23:59:59 CLS Outpatient 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 [id number] 01/24/2013 13:14:00 Document Registration [id number] 11/23/2012 14:01:00 Document Registration [id number] 09/27/2016 11:59:00 09/27/2016 14:25:00 DIS Emergency SELENA PONCE [facility] FED [id number] 06/25/2016 12:18:00 06/25/2016 12:54:00 DIS Emergency [facility] FED [id number] 11/13/2014 04:26:00 11/13/2014 05:49:00 DIS Emergency FRANNY ISIDRO [facility] FED [id number] 11/07/2014 18:20:00 11/07/2014 22:19:00 DIS Emergency MARLENE LANZA [facility] FED [id number] 10/31/2014 15:51:00 10/31/2014 19:03:00 DIS Emergency TOM BLAIR [facility] FED [id number] 03/31/2017 08:36:00 Document Registration [id number] 04/29/2017 14:11:00 Document Registration
[2018-02-17] MEDS ORDERED: NS IV 1000 ML 1,000 ML IV SCH (12:45)
[2018-02-17] MEDS ORDERED: fentaNYL INJECTION 100 MCG/2 ML AMP IVP ONE (12:45)
[2018-02-17] MEDS ORDERED: ONDANSETRON 4 MG/2 ML (SDV) Z0FRAN IVP ONE (12:45)
[2018-02-17] MEDS ORDERED: LORazepam INJ 2 MG/ML (ATIVAN) VIAL IVP ONE (13:00)
--- NOTE | 2018-02-17 13:42 | Diagnostic Imaging Report ---
PROCEDURE: CT abdomen and pelvis with contrast. TECHNIQUE: Multiple contiguous axial images were obtained through the abdomen and pelvis after administration of intravenous contrast. INDICATION: Abdominal pain and vomiting for three days. COMPARISON: Comparison is made with prior CT from 12/17/2017. FINDINGS: The lung bases are clear. Generalized low density throughout the liver is again noted consistent with hepatic steatosis. No liver mass is identified. The gallbladder is unremarkable. The pancreas and spleen are unremarkable. No adrenal mass is detected. The kidneys are unremarkable. The aorta is non-aneurysmal. No central retroperitoneal or mesenteric lymphadenopathy is seen. Bowel loops appear to be nonobstructed. No ascites is seen. Appendix appears to be surgically absent. Uterus and bladder are unremarkable. No inflammatory process is seen. IMPRESSION: Unremarkable CT of the abdomen and pelvis apart from hepatic steatosis. No acute abnormality is detected. Dictated by: Dictated on workstation # [id number]
[2018-02-17 14:25] LABS: BASOPHILS # (AUTO) 0.1 10^3/uL (0.0-0.1); BASOPHILS % (AUTO) 0 % (0-10); EOSINOPHILS # (AUTO) 0.1 10^3/uL (0.0-0.3); EOSINOPHILS % (AUTO) 1 % (0-10); HEMATOCRIT 36 % (35-52); HEMOGLOBIN 12.2 G/DL (11.5-16.0); LYMPHOCYTES # (AUTO) 3.5 X 10^3 (1.0-4.0); LYMPHOCYTES % (AUTO) 24 % (12-44); MEAN CORPUSCULAR HEMOGLOBIN 29 PG (25-34); MEAN CORPUSCULAR HGB CONC 34 G/DL (32-36); MEAN CORPUSCULAR VOLUME 85 FL (80-99); MEAN PLATELET VOLUME 11.4 FL (7.4-10.4); MONOCYTES # (AUTO) 0.7 X 10^3 (0.0-1.0); MONOCYTES % (AUTO) 5 % (0-12); NEUTROPHILS # (AUTO) 10.1 X 10^3 (1.8-7.8); NEUTROPHILS % (AUTO) 70 % (42-75); PLATELET COUNT 509 10^3/uL (130-400); RED BLOOD COUNT 4.17 10^6/uL (4.35-5.85); RED CELL DISTRIBUTION WIDTH 13.2 % (10.0-14.5); WHITE BLOOD COUNT 14.4 10^3/uL (4.3-11.0)
[2018-02-17 14:33] LABS: BILIRUBIN,URINE NEGATIVE (NEGATIVE); CLARITY,URINE CLEAR; COLOR,URINE YELLOW; GLUCOSE, URINE (UA) NEGATIVE (NEGATIVE); KETONES,URINE NEGATIVE (NEGATIVE); LEUKOCYTE ESTERASE ,URINE 1+ (NEGATIVE); NITRITE,URINE NEGATIVE (NEGATIVE); PH,URINE 6 (5-9); PROTEIN,URINE 1+ (NEGATIVE); UROBILINOGEN,URINE NORMAL (NORMAL)
[2018-02-17 14:40] LABS: ALANINE AMINOTRANSFERASE 25 U/L (0-55); ALBUMIN 4.1 GM/DL (3.2-4.5); ALKALINE PHOSPHATASE 73 U/L (40-136); AMYLASE 18 U/L (25-125); BILIRUBIN,TOTAL 0.2 MG/DL (0.1-1.0); BUN/CREATININE RATIO 15; CALCIUM 9.2 MG/DL (8.5-10.1); CARBON DIOXIDE 27 MMOL/L (21-32); CHLORIDE 103 MMOL/L (98-107); CREATININE SERUM 0.81 MG/DL (0.60-1.30); GFR ESTIMATED > 60; GLUCOSE 144 MG/DL (70-105); LIPASE 14 U/L (8-78); POTASSIUM 3.6 MMOL/L (3.6-5.0); SODIUM 137 MMOL/L (135-145); TOTAL PROTEIN 7.8 GM/DL (6.4-8.2)
[2018-02-17 14:56] LABS: BACTERIA,URINE FEW /HPF
[2018-02-17 14:57] LABS: SQUAMOUS EPITHELIAL CELL,UR 25-50 /HPF
[2018-02-17 15:10] LABS: BAND NEUTROPHILS 1 %; BASOPHILS % (MANUAL) 1 %; EOSINOPHILS % (MANUAL) 0 %; LYMPHOCYTES % (MANUAL) 19 %; MONOCYTES % (MANUAL) 4 %; NEUTROPHILS % (MANUAL) 68 %; REACTIVE LYMPHOCYTES 7 %
[2018-02-17 15:11] LABS: ROULEAUX MOD
[2018-02-17] MEDS ORDERED: cefTRIAXone INJECTION 1,000 MG in NS (IVPB) 50 ML IV ONE (15:15)
[2018-02-17] MEDS ORDERED: SULF1TAB35 PO (15:23)
[2018-02-17] MEDS ORDERED: ONDN4T PO (15:23)
[2018-02-17] MEDS ORDERED: PANT20TA2 PO (15:23)
[2018-02-17 15:59] VITALS: BP 113/90
== END 2018-02-17 16:00 | disposition home or self-care (01) ==
LOC: EDUNIT# 11:57 → ER 11:59
DX: N39.0 Urinary tract infection, site not specified (principal); K92.0 Hematemesis; E11.9 Type 2 diabetes mellitus without complications; F41.9 Anxiety disorder, unspecified; F32.9 Major depressive disorder, single episode, unspecified; Z88.8 Allergy status to other drugs, medicaments and biological substances; Z88.1 Allergy status to other antibiotic agents; Z79.84 Long term (current) use of oral hypoglycemic drugs; Z90.89 Acquired absence of other organs; Z98.51 Tubal ligation status
CPT/HCPCS: 36415; 74177; 80053; 81000; 82150; 83690; 85007; 85027; 96365; 96375

== ENCOUNTER 2018-04-18 15:20 | Emergency (ER) | payer SELFPAY ==
[~2018-04-18] VITALS: Ht 165.1 cm; Wt 71.2 kg
[~2018-04-18 15:20] MED LIST changes: +ONDN4T PO; +PANT20TA2 PO
--- OUTSIDE RECORDS SUMMARY | 2018-04-18 15:27 | XMS REPORT ---
Author Author MAKAYLA ALANIZ Organization [facility] Address [address] [place] [address] Care Team Providers Care Wash Driller Helper Name Role Phone MAKAYLA ALANIZ Unavailable PROBLEMS Type Condition ICD9-CM Code OFD02-SK Code Onset Dates Condition Status SNOMED Code Problem History of hypertension Z86.79 Active 769498351 Problem Elevated LDL cholesterol level E78.00 Active 657271096 Problem Personality disorder F60.9 Active 70740303 Problem Other chronic pain G89.29 Active 34447953 Problem Hypoglycemia E16.2 Active 130160812 Problem Acute seasonal allergic rhinitis, unspecified trigger J30.2 Active 160461948 Problem Type 2 diabetes mellitus without complication, without long-term current use of insulin E11.9 Active 360525192 Problem Primary insomnia F51.01 Active 8049075 Problem Acute non intractable tension-type headache G44.209 Active 151098319 Problem Generalized anxiety disorder F41.1 Active 79730603 Problem Bipolar disorder in remission F31.70 Active 07016874 Problem Family history of diabetes insipidus Z83.49 Active 108013776 Problem Abnormal CBC R79.89 Active 154014810 Problem Bipolar disorder, current episode mixed, mild F31.61 Active 526439053 Problem History of diabetes mellitus Z86.39 Active 424637861 Problem Overweight (BMI 25.0-29.9) E66.3 Active 061469460 Problem Sore throat J02.9 Active 299175893 ALLERGIES Substance Reaction Event Type Date Status MetFORMIN HCl ER nausea Drug Allergy Jan, Active Zyprexa rash Drug Allergy Jan, Active Cipro rash Drug Allergy Jan, Active ENCOUNTERS Encounter Location Date Diagnosis [facility] [address] [facility] [id number] [address] Jun, [facility] [address] [facility] [id number], [place] [address] Apr, [facility] [id number] [place] [address] 83620- 8367 Mar, [facility] [place] [id number] [place] [address] 45023- 7963 Mar, Plantar fascia syndrome M72.2 [facility] [place] [id number] [place] [address] 08734- 1166 Jan, UTI symptoms R39.9 and Epigastric pain R10.13 [place] [address] [address]43- 1603 Jan, Posterior right knee pain M25.561 [place] [address] 54656- 1514 Jan, Posterior right knee pain M25.561 [place] [id number] [place] [address] 77300- 5259 Jan, Scabies B86 [place] [address] 27077- 1604 Jan, Bipolar disorder, current episode mixed, mild F31.61 and Personality disorder F60.9 [place] [id number] [place] [address] 98405- 5033 Jan, Cyst of ovary, unspecified laterality N83.209 [facility] [id number] [place] [address] 43328- 9246 December, Cyst of ovary, unspecified laterality N83.209 [place] [id number] [place] [address] 76351- 1081 December, [place] [address] 04159- 5272 December, Dysuria R30.0 [place] [id number] [place] [address] 64549- 4211 December, [place] [address] 95240- 5312 Nov, Bipolar disorder, current episode mixed, mild F31.61 and Personality disorder F60.9 [place] [id number] [place] [id number] [address] Nov, Elevated LDL cholesterol level E78.00 and Type 2 diabetes mellitus without complication, without long-term current use of insulin E11.9 [place] [id number] [place] [address] 51058- 8761 Nov, Elevated LDL cholesterol level E78.00 and Type 2 diabetes mellitus without complication, without long-term current use of insulin E11.9 [facility] [id number] [place] [address] 68202- 0268 Nov, Other chronic pain G89.29 and Pain in left leg M79.605 [place] [id number] [place] [address] 06888- 7733 Nov, Acute pain of left knee M25.562 ; Syncope, unspecified syncope type R55 and Hypoglycemia E16.2 [place] [id number] [place] [address] 25929- 1624 Oct, Syncope, unspecified syncope type R55 [place] [id number] [place] [address] 39559- 9259 Oct, Bipolar disorder, current episode mixed, mild F31.61 and Personality disorder F60.9 [place] [id number] [place] [address] 80681- 5540 Oct, Lump of right breast N63.10 [place] [id number] [place] [address] 82350- 5969 Oct, Generalized anxiety disorder F41.1 [place] [id number] [place] [address] 56851- 4861 Oct, Generalized anxiety disorder F41.1 ; Bipolar disorder in remission F31.70 ; Bipolar disorder, current episode mixed, mild F31.61 and Primary insomnia F51.01 [place] [id number] [place] [address] 76449- 2072 20 Oct, 2017 Primary insomnia F51.01 and Lump of right breast N63.10 [place] [id number] [place] [address] 92817- 9214 16 Oct, 2017 Enteritis K52.9 [facility] [id number] [place] [address] 90289 -8363 14 Oct, 2017 Allergic conjunctivitis of both eyes H10.13 and Acute non intractable tension-type headache G44.209 [place] [id number] [place] [address] 91775- 5939 14 Oct, 2017 [place] [address] 84489- 8576 Oct, Bipolar disorder, current episode mixed, mild F31.61 [place] [address] 17945- 8088 Sep, Right flank pain R10.9 and Thoracic spine pain M54.6 [place] [id number] [place] [address] 00873- 2561 Sep, Generalized anxiety disorder F41.1 and Bipolar disorder, current episode mixed, mild F31.61 [place] [id number] [place] [address] 06501- 8178 14 Sep, 2017 [place] [id number] [place] [address] 10481- 3748 Sep, Generalized anxiety disorder F41.1 ; Bipolar disorder in remission F31.70 and Personality disorder F60.9 [place] [address] 47991- 5152 12 Sep, 2017 Spasm of thoracic back muscle M62.830 ; Type 2 diabetes mellitus without complication, without long-term current use of insulin E11.9 and Generalized anxiety disorder F41.1 [place] [id number] [place] [address] 03080- 6575 Sep, Bipolar disorder, current episode mixed, mild F31.61 and Personality disorder F60.9 [place] [id number] [place] [address] 64669- 7440 Aug, [place] [id number] [place] [address] 55325- 4318 Aug, Bipolar disorder, current episode mixed, mild F31.61 and Personality disorder F60.9 [place] [address] 32978- 5889 Aug, Type 2 diabetes mellitus without complication, without long- term current use of insulin E11.9 ; Generalized anxiety disorder F41.1 ; Bipolar disorder in remission F31.70 and Overweight (BMI 25.0-29.9) E66.3 [place] [id number] [place] [address] 53122- 3122 04 Aug, 2017 Type 2 diabetes mellitus without complication, without long- term current use of insulin E11.9 ; Elevated LDL cholesterol level E78.00 and Bipolar disorder, current episode mixed, mild F31.61 [facility] [id number] [place] [address] 39757 -3016 Jul, Vaginal discharge N89.8 ; Skin irritation R23.8 and Dysuria R30.0 [facility] [id number] [place] [address] 57943 -3759 07 Jul, 2017 Acute seasonal allergic rhinitis, unspecified trigger J30.2 and Chest pain, unspecified type R07.9 [place] [id number] [place] [address] 44836- 2135 Jun, Bipolar disorder, current episode mixed, mild F31.61 [place] [id number] [place] [address] 34600- 7121 Jun, [place] [id number] [place] [address] 54822- 9856 Jun, Bipolar disorder, current episode mixed, mild F31.61 and Personality disorder F60.9 [place] [id number] [place] [address] 73490- 1376 Jun, [place] [address] 53581- 6905 Jun, Type 2 diabetes mellitus without complication, without long- term current use of insulin E11.9 and Dysuria R30.[address] 47694- 7517 May, Bipolar disorder, current episode mixed, mild F31.61 ; Personality disorder F60.9 and Homeless Z59.[address] 62135- 1322 May, Type 2 diabetes mellitus without complication, without long- term current use of insulin E11.9 [place] [address] 89102- 5041 May, History of hypertension Z86.[address] 69266- 3114 May, [place] [address] 68933- 6942 May, Type 2 diabetes mellitus without complication, without long- term current use of insulin E11.9 ; Elevated LDL cholesterol level E78.00 ; Low serum HDL R74.8 and Encounter for immunization Z23 [place] [id number] [place] [address] 93801- 6736 Apr, Encounter to establish care Z76.89 ; Abnormal CBC R79.89 ; History of hypertension Z86.79 ; Overweight (BMI 25.0-29.9) E66.3 ; Family history of diabetes insipidus Z83.49 ; Sore throat J02.9 and Tonsillitis with exudate J03.90 [place] [id number] [place] [address] 27357- 7468 Apr, Bipolar disorder, current episode mixed, mild F31.61 [place] [address] 89708- 6208 Mar, [facility] [address] [address]- 9051 Mar, Bipolar disorder, current episode mixed, mild F31.61 [facility] [address] [place] [address] 98661- 8602 Mar, [facility] [id number] [place] [address] 72096- 4815 Mar, Bipolar disorder in remission F31.70 [facility] [address] [address]- 5993 Jan, [facility] [id number] [place] [address] 98644- 7446 Jan, [facility] [address] [place] [address] 10428- 7546 Oct, Generalized anxiety disorder F41.1 and Bipolar disorder in remission F31.70 [facility] [address], [place] [address]- 2700 Oct, [facility] [id number] [place] [address] 52381- 6609 Oct, [facility] [address], [place] [address]- 3947 Oct, [facility] [address], [place] [address]- 8343 Oct, [facility] [address] [address]- 6530 Jul, [facility] [id number] [place] [address] 15900- 5291 Jun, [facility] [address] [place] [address] 877132- 3068 May, 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 and Generalized anxiety disorder F41.1 [facility] [id number] [place] [address] 92258- 1544 Jan, [facility] [address] [place] [address] 23773- 1342 Jan, [facility] [id number] [place] [address] 750427- 7062 Jan, 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 and Generalized anxiety disorder F41.1 [facility] [id number] [place] [address] 33403- 9816 Sep, [facility] [id number] [place] [address] 98122- 8116 Sep, [facility] [id number] [place] [address] 633309- 3088 Jul, 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 and Generalized anxiety disorder F41.1 [facility] [id number] [place] [address] 10875- 4206 Jul, Otalgia of right ear H92.01 [facility] [id number] [place] [address] 60809- 8341 Jun, [facility] [id number] [place] [address] 16610- 4973 Mar, [facility] [id number] [place] [address] 31163- 6459 Jan, [facility] [id number] [place] [address] 17965- 7507 Jan, [facility] [address] [place] [address] 46127- 1828 Jan, Bipolar 1 disorder, mixed, moderate 296.62 and SHERRY ( generalized anxiety disorder) 300.02 [facility] [address] [place] [address] 379558- 5430 Jan, [facility] [id number] [place] [address] 56712- 6145 Nov, [facility] [address] [id number] [place] [address]- 7252 Nov, [facility] [place] [facility] [address] [id number] [place] [address]- 9477 Oct, [facility] [place] [facility] [address] [id number] [place] [address]- 6166 Oct, [facility] [place] [facility] [address] [id number] [place] [address]- 5011 Mar, [facility] [place] [facility] [address] [id number] [place] [address]- 1307 Mar, [facility] [place] [facility] [address] [id number] [place] [address]- 5141 Jan, [facility] [place] [facility] [address] [id number] [place] [address]- 8442 Jan, [facility] [place] [facility] [address] [id number] [place] [address]- 7409 December, [facility] [place] [facility] [address] [id number] [place] [address]- 0115 December, [facility] [place] [facility] [address] [id number] [place] [address]- 6126 December, [facility] [place] [facility] [address] [id number] [place] 0127 December, [facility] [place] [facility] [address] [id number] [place] [address]- 5221 December, [facility] [place] [facility] [address] [id number] [place] [address]- 9854 December, [facility] [place] [facility] [address] [id number] [place] [address]- 9374 December, [facility] [place] [facility] [address] [id number] [place] [address]- 3026 December, [facility] [place] [facility] [address] [id number] [place] [address]- 9371 15 Nov, 2013 [facility] [place] [facility] [address] [id number] [place] [address]- 1206 15 Nov, 2013 [facility] [place] [facility] [address] [id number] [place] [address]- 1386 10 Oct, 2013 [facility] [place] [facility] [address] [id number] [place] [address]- 6632 Oct, [facility] [place] [facility] [address] [id number] [place] [address]- 0094 Oct, [facility] [place] [facility] [address] [id number] [place] [address]- 1950 Oct, [facility] [place] [facility] [address] [id number] [place] [address]- 7269 Oct, [facility] [place] [facility] [address] [id number] [place] [address]- 0780 Sep, [facility] [place] [facility] [address] [id number] [place] [address]- 9808 Sep, [facility] [place] [facility] [address] [id number] [place] [address]- 9904 Sep, [facility] [place] [facility] [address] [id number] [place] [address]- 4011 Sep, [facility] [place] [facility] [address] [id number] [place] [address]- 8291 Aug, [facility] [place] [facility] [address] [id number] [place] [address]- 5663 Aug, [facility] [place] [facility] [address] [id number] [place] [address]- 4320 Aug, [facility] [place] [facility] [address] [id number] [place] [address]- 1680 Aug, [facility] [place] [facility] [address] [id number] [place] [address]- 4902 Aug, [facility] [place] [facility] [address] [id number] [place] [address]- 2783 16 Jul, 2012 [facility] [address] [id number] [place] [address]- 6548 16 Jul, 2012 [facility] [place] [facility] [address] [id number] [place] [address]- 3264 Jul, [facility] [address] [id number] [place] [address]- 6985 Jul, [facility] [place] [facility] [address] [id number] [place] [address] 2543 Jun, [facility] [address] [id number] [place] [address]- 4219 Jun, [facility] [address] [id number] [place] 1021 May, [facility] [address] [id number] [place] [address]- 4323 May, [facility] [address] [id number] [place] [address]- 5497 May, [facility] [address] [id number] [place] [address]- 4199 May, [facility] [address] [facility] [id number] [place] [address]- 1615 May, [facility] [place] [facility] [address] [id number] [place] [address]- 1462 15 May, 2013 [facility] [place] [facility] [address] [id number] [place] [address]- 9476 May, [facility] [place] [facility] [address] [id number] [place] [address]- 7593 May, [facility] [place] [facility] [address] [facility] [id number] [place] [address]- 2546 May, [facility] [place] [facility] [address] [id number] [place] [address]- 9606 Apr, [facility] [place] [facility] [address] [id number] [place] [address]- 6521 Apr, [facility] [place] [facility] [address] [id number] [place] [address]- 3181 Mar, [facility] [place] [facility] [address] [id number] [place] [address]- 5623 Mar, [facility] [place] [facility] [address] [id number] [place] [address]- 6296 Mar, [facility] [place] [facility] [address] [id number] [place] [address]- 1999 Mar, [facility] [place] [facility] [address] [id number] [place] [address]- 0439 Mar, [facility] [place] [facility] [address] [id number] [place] [address]- 6098 Mar, [facility] [place] [facility] [address] [id number] [place] [address]- 8726 Mar, [facility] [place] [facility] [address] [id number] [place] [address]- 9957 Mar, [facility] [place] [facility] [address] [id number] [place] [address]- 2017 Mar, [facility] [place] [facility] [address] [id number] [place] [address]- 4940 Mar, [facility] [place] [facility] [address] [id number], [place] [address]- 2349 Mar, [facility] [place] [facility] [address] [id number] [place] [address]- 0382 Jan, [facility] [place] [facility] [address] [id number] [place] [address]- 4346 Jan, [facility] [place] [facility] [address] [id number] [place] [address]- 2013 Jan, [facility] [place] [facility] [address] [id number] [place] [address]- 7424 December, [facility] [address] [id number] [place] [address]- 0131 December, [facility] [address] [id number] [place] [address]- 3158 Nov, [facility] [address] [id number] [place] [address]- 4078 Nov, [facility] [address] [id number] [place] [address]- 5869 28 Oct, 2012 [facility] [address] [id number] [place] [address]- 3616 26 Oct, 2012 [facility] [address] [id number] [place] [address]- 5602 21 Oct, 2012 [facility] [address] [id number] [place] [address]- 5539 20 Oct, 2012 [facility] [address] [id number] [place] [address]- 0415 19 Oct, 2012 [facility] [address] [id number] [place] [address]- 6031 19 Oct, 2012 [facility] [address] [facility] [id number] [place] [address]- 7795 17 Oct, 2012 [facility] [address] [id number] [place] [address]- 2847 16 Oct, 2012 [facility] [place] [facility] [address] [id number] [place] [address]- 6438 14 Oct, 2012 [facility] [place] [facility] [address] [id number] [place] [address]- 0409 13 Oct, 2012 [facility] [place] [facility] [address] [facility] [id number] [place] [address]- 6262 05 Oct, 2012 [facility] [address] [facility] [id number] [place] [address]- 6905 14 Sep, 2012 [facility] [place] [facility] [address] [id number] [place] [address]- 6176 08 Sep, 2012 [facility] [address] [id number] [place] [address]- 8732 Aug, [facility] [place] [facility] [address] [id number] [place] [address] 2546 Aug, [facility] [place] [facility] [address] [id number] [place] [address] Aug, [facility] [place] [facility] [address] [id number] [place] [address] Aug, [facility] [place] [facility] [address] [id number] [place] [address] Aug, [facility] [address] [id number] [place] [address] Jul, [facility] [address] [id number] [place] [address] Jul, [facility] [address] [id number] [place] [address] Jul, [facility] [place] [facility] [address] [id number] [place] [address] 19 Jul, 2012 [facility] [address] [id number] [place] [address] 18 Jul, 2012 [facility] [place] [facility] [address] [id number] [place] [address] 17 Jul, 2012 [facility] [place] [facility] [address] [id number] [place] [address] 14 Jul, 2012 [facility] [place] [facility] [address] [id number] [place] [address] 14 Jul, 2012 [facility] [place] [facility] [address] [id number] [place] [address] 06 Jul, 2012 [facility] [place] [facility] [address] [id number] [place] [address] Jul, [facility] [place] [facility] [address] [id number] [place] [address] Jul, [facility] [place] [facility] [address] [id number] [place] [address] Jul, [facility] [place] [facility] [address] [facility] [id number] [place] [address] Jul, [facility] [place] [facility] [address] [id number] [place] [address] Jul, [facility] [place] [facility] [address] [id number] [place] [address]- [address] Jul, [facility] [place] [facility] [address] [id number] [place] [address] Jul, [facility] [place] [facility] [address] [facility] [id number] [place] [address] Jun, [facility] [place] [facility] [address] [id number], [place] [address] Jun, [facility] [place] [facility] [address] [id number], [place] [address] Jun, [facility] [place] [facility] [address] [facility] [id number], [place] [address] Jun, [facility] [place] [facility] [address] [id number], [place] [address] Jun, [facility] [place] [facility] [address] [id number], [place] [address] Jun, [facility] [place] [facility] [address] [id number], [place] [address] Jun, [facility] [place] [facility] [address] [id number], [place] [address] Jun, [facility] [place] [facility] [address] [facility] [id number], [place] [address] 13 Jun, 2012 [facility] [place] [facility] [address] [id number] [place] [address] May, [facility] [place] [facility] [address] [id number] [place] [address] Mar, [facility] [place] [facility] [address] [id number] [place] [address] Mar, [facility] [place] [facility] [address] [id number] [place] [address] Mar, [facility] [place] [facility] [address] [id number] [place] [address]- 9279 Mar, [facility] [place] [facility] [address] [id number] [place] [address] Jan, [facility] [place] [facility] [address] [id number] [place] [address] Jan, [facility] [place] [facility] [address] [id number] [place] [address] Jan, [facility] [place] [facility] [address] [id number] [place] [address] Jan, [facility] [place] [facility] [address] [id number] [place] [address] Jan, [facility] [place] [facility] [address] [id number] [place] [address] Jan, [facility] [place] [facility] [address] [id number] [place] [address] December, [facility] [place] [facility] [address] [id number] [place] [address] December, [facility] [place] [facility] [address] [id number] [place] [address] Nov, [facility] [place] [facility] [address] [id number] [place] [id number] [address] Nov, [facility] [place] [facility] [address] [id number] [place] [address] Oct, [facility] [place] [facility] [address] [id number] [place] [address] Oct, [facility] [place] [facility] [address] [id number] [place] [address] Oct, [facility] [place] [facility] [address] [id number] [place] [address] Oct, [facility] [place] [facility] [address] [id number] [place] [address] Aug, [facility] [place] [facility] [address] [id number] [place] [address] Aug, [facility] [place] [facility] [address] [id number] [place] [address] Jun, [facility] [place] [facility] [address] [id number] [place] [address] Jun, [facility] [place] [facility] [address] [id number] [place] [address] Jun, [facility] [place] [facility] [address] [id number] [place] [address] Jun, [facility] [place] [facility] [address] [id number] [place] [address] Jun, [facility] [place] [facility] [address] [id number] [place] [address] May, [facility] [place] [facility] [address] [id number] [place] [address] May, [facility] [place] [facility] [address] [id number] [place] [address] May, [facility] [place] [facility] [address] [id number] [place] [address] May, [facility] [place] [facility] [address] [id number] [place] [address] May, [facility] [place] [facility] [address] [id number], [place] [address] May, [facility] [address] [facility] [id number], [place] [address] May, [facility] [address] [facility] [id number], [place] [address] Mar, [facility] [address] [facility] [id number] [address] May, [facility] [address] [facility] [id number] [address] Jan, [facility] [address] [facility] [id number], [place] [address] Jul, [facility] [address] [facility] [id number], [place] [address] Jun, [facility] [id number] [address] [address] Jun, [facility] [address] [id number], [place] [address] Jun, [facility] [address] [id number], [place] [address] Jun, [facility] [address] [id number], [place] [address] Jun, [facility] [address] [id number], [place] [address] May, [facility] [address] [facility] [id number], [place] [address] May, [facility] [address] [facility] [id number] [address] [address] May, [facility] [address] [id number] [address] Jul, IMMUNIZATIONS No Known Immunizations SOCIAL HISTORY Never Assessed REASON FOR VISIT Stomach ache, patient state she was in the emergency room yesterday nausea stomach pain and vomiting , states she got some prescription to treat her for UTI and she can not get it at the pharmacy because they told her she is allergic to sulfa - thanh yañez PLAN OF CARE Activity Details Follow Up if not improving or regular follow up with pcp . if not improving with PCP or reg follow up Reason: VITAL SIGNS Height 62 in 2018-02-18 Weight 171.0 lbs 2018-02-18 Temperature 98.6 degrees Fahrenheit 2018-02-18 Heart Rate 70 bpm 2018-02-18 Respiratory Rate 18 2018-02-18 BMI 31.27 kg/m2 2018-02-18 Blood pressure systolic 120 mmHg 2018-02-18 Blood pressure diastolic 70 mmHg 2018-02-18 MEDICATIONS Medication Instructions Dosage Frequency Start Date End Date Duration Status Permethrin 5 % Externally Once a day 1 application to affected area 24h Jan, 1 dose Active Glucocard Expression Test 1 subcutaneously 2 times a day test 2 times per day 12h May, 12 months Active Azelastine HCl 0.05 % Ophthalmic Twice a day 1 drop into affected eye 12h Oct, Active Zofran 4 MG Orally 3 times a day 1 tablet as needed 8h Jan, 05 days Active Voltaren 1 % Transdermal 4 times a day prn pain as directed Jan, 15 Apr, 2018 30 days Active Atorvastatin Calcium 10 mg Orally Once a day 1 tablet 24h May, 90 days Active Trazodone HCl 100 MG Orally Once a day 1 tablet or 1.5 tabs or 2 tabs 24h Jan, 30 day(s) Active Abilify 10 MG Orally Once a day at bedtime 1 tablet Active Esomeprazole Magnesium 40 mg Orally Once a day 1 capsule 24h Jan, 30 day(s) Active Lisinopril 5 MG Orally Once a day 1 tablet 24h 90 days Active Glimepiride 1 MG Orally Once a day 1 tablet with breakfast or the first main meal of the day 24h May, 90 days Active RESULTS Name Result Date Reference Range UA LONG DIP (IN HOUSE) 2018-02-18 Lot # [id number] Exp date 04/2019 Clarity clear Color yellow Odor none GLU neg CHUCK neg KET neg SG 1.015 BLO neg pH 7.0 Protein neg URO 0.2 NIT neg PRITESH neg Lot # Exp date PROCEDURES Procedure Date Ordered Result Body Site URINALYSIS, AUTO, W/O SCOPE February 18, 2018 INSTRUCTIONS MEDICATIONS ADMINISTERED No Known Medications MEDICAL (GENERAL) HISTORY Type Description Date Medical History hypertension Medical History depression (hx of suicidal plan in 2013) Medical History insomnia Medical History bipolar disorder Surgical History Appendix Surgical History Tubal Ligation Hospitalization History Child /surgery Hospitalization History psych inpatient treatment, [facility] 2011
--- OUTSIDE RECORDS SUMMARY | 2018-04-18 15:28 | XMS REPORT ---
Author Author CITLALY SKINNER Organization [facility] Address [address] [place] [address] Care Team Providers Care Occupational Therapy Aides Teacher Name Role Phone CITLALY SKINNER Unavailable PROBLEMS Type Condition ICD9-CM Code QYA98-PT Code Onset Dates Condition Status SNOMED Code Problem History of hypertension Z86.79 Active 462312763 Problem Elevated LDL cholesterol level E78.00 Active 261667807 Problem Personality disorder F60.9 Active 63274149 Problem Other chronic pain G89.29 Active 39491878 Problem Hypoglycemia E16.2 Active 285342559 Problem Acute seasonal allergic rhinitis, unspecified trigger J30.2 Active 692076834 Problem Type 2 diabetes mellitus without complication, without long-term current use of insulin E11.9 Active 063536701 Problem Primary insomnia F51.01 Active 9177730 Problem Acute non intractable tension-type headache G44.209 Active 722960412 Problem Generalized anxiety disorder F41.1 Active 73816441 Problem Bipolar disorder in remission F31.70 Active 94100429 Problem Family history of diabetes insipidus Z83.49 Active 081514347 Problem Abnormal CBC R79.89 Active 703766016 Problem Bipolar disorder, current episode mixed, mild F31.61 Active 316736280 Problem History of diabetes mellitus Z86.39 Active 518108521 Problem Overweight (BMI 25.0-29.9) E66.3 Active 762143513 Problem Sore throat J02.9 Active 652764838 ALLERGIES No Information ENCOUNTERS Encounter Location Date Diagnosis [facility] [id number], [place] [address] Jun, [facility] [address], [place] [address] Apr, [facility] [id number], [place] [address] 8[address] Mar, [facility] [id number] [place] [address] 78866- 9963 Mar, Plantar fascia syndrome M72.2 [place] [address] 47171- 8322 Jan, UTI symptoms R39.9 and Epigastric pain R10.13 [place] [id number] [place] [address] 24519- 5222 Jan, Posterior right knee pain M25.561 [place] [id number] [place] [address] 93358- 0999 Jan, Posterior right knee pain M25.561 [place] [address] 72975- 3812 Jan, Scabies B86 [place] [address] 95289- 0853 Jan, Bipolar disorder, current episode mixed, mild F31.61 and Personality disorder F60.9 [place] [id number] [place] [address] 69469- 7804 Jan, Cyst of ovary, unspecified laterality N83.209 [place] [id number] [place] [address] 36103- 9008 December, Cyst of ovary, unspecified laterality N83.209 [place] [id number] [place] [address] 51787- 2081 December, [place] [id number] [place] [address] 68433- 7098 December, Dysuria R30.0 [place] [id number] [place] [address] 57894- 8469 December, [place] [id number] [place] [address] 76083- 0348 Nov, Bipolar disorder, current episode mixed, mild F31.61 and Personality disorder F60.9 [place] [address] [place] [address]- 8464 Nov, Elevated LDL cholesterol level E78.00 and Type 2 diabetes mellitus without complication, without long-term current use of insulin E11.9 [place] [id number] [place] [address] Nov, Elevated LDL cholesterol level E78.00 and Type 2 diabetes mellitus without complication, without long-term current use of insulin E11.9 [place] [id number] [place] [address] 07631- 0209 Nov, Other chronic pain G89.29 and Pain in left leg M79.605 [address]1619- 6273 02 Nov, 2017 Acute pain of left knee M25.562 ; Syncope, unspecified syncope type R55 and Hypoglycemia E16.2 [address] [id number] [place] [address] 19438- 1552 Oct, Syncope, unspecified syncope type R55 [place] [id number] [place] [address] 18134- 6071 Oct, Bipolar disorder, current episode mixed, mild F31.61 and Personality disorder F60.9 [place] [address] [id number] [place] [address] 06898- 5894 Oct, Lump of right breast N63.10 [place] [id number] [place] [address] 79627- 3683 Oct, Generalized anxiety disorder F41.[address] 49657- 0944 Oct, Generalized anxiety disorder F41.1 ; Bipolar disorder in remission F31.70 ; Bipolar disorder, current episode mixed, mild F31.61 and Primary insomnia F51.01 [place] [id number] [place] [address] 28464- 4759 Oct, Primary insomnia F51.01 and Lump of right breast N63.[address] [place] [id number] [place] [address] 57913- 8786 16 Oct, 2017 Enteritis K52.9 [facility] [address] [address] -1237 14 Oct, 2017 Allergic conjunctivitis of both eyes H10.13 and Acute non intractable tension-type headache G44.209 [facility] [address] 54286- 1264 Oct, [facility] [address] 86862- 2689 Oct, Bipolar disorder, current episode mixed, mild F31.61 [place] [address] 46611- 9996 22 Sep, 2017 Right flank pain R10.9 and Thoracic spine pain M54.6 [place] [address] 03137- 3472 Sep, Generalized anxiety disorder F41.1 and Bipolar disorder, current episode mixed, mild F31.61 [place] [id number] [place] [address] 98422- 0903 Sep, [facility] [id number] [place] [address] 61472- 3647 Sep, Generalized anxiety disorder F41.1 ; Bipolar disorder in remission F31.70 and Personality disorder F60.9 [place] [id number] [place] [address] 82753- 9037 Sep, Spasm of thoracic back muscle M62.830 ; Type 2 diabetes mellitus without complication, without long-term current use of insulin E11.9 and Generalized anxiety disorder F41.1 [place] [id number] [place] [address] 53796- 3520 Sep, Bipolar disorder, current episode mixed, mild F31.61 and Personality disorder F60.9 [place] [address] 42711- 8438 Aug, [place] [id number] [place] [address] 06614- 8222 Aug, Bipolar disorder, current episode mixed, mild F31.61 and Personality disorder F60.9 [place] [id number] [place] [address] 26168- 6284 Aug, Type 2 diabetes mellitus without complication, without long- term current use of insulin E11.9 ; Generalized anxiety disorder F41.1 ; Bipolar disorder in remission F31.70 and Overweight (BMI 25.0-29.9) E66.3 [place] [address] 54370- 5054 04 Aug, 2017 Type 2 diabetes mellitus without complication, without long- term current use of insulin E11.9 ; Elevated LDL cholesterol level E78.00 and Bipolar disorder, current episode mixed, mild F31.61 [facility] [id number] [place] [address] 73543 -6406 Jul, Vaginal discharge N89.8 ; Skin irritation R23.8 and Dysuria R30.0 [facility] [address] 22976 -2448 Jul, Acute seasonal allergic rhinitis, unspecified trigger J30.2 and Chest pain, unspecified type R07.9 [place] [id number] [place] [address] 37067- 3875 Jun, Bipolar disorder, current episode mixed, mild F31.61 [place] [id number] [place] [address] 54552- 9959 Jun, [place] [address] 74035- 0171 Jun, Bipolar disorder, current episode mixed, mild F31.61 and Personality disorder F60.9 [place] [id number] [place] [address] 91920- 4813 Jun, [place] [address] 49707- 5103 Jun, Type 2 diabetes mellitus without complication, without long- term current use of insulin E11.9 and Dysuria R30.0 [place] [id number] [place] [address] 50609- 8027 May, Bipolar disorder, current episode mixed, mild F31.61 ; Personality disorder F60.9 and Homeless Z59.0 [place] [id number]- [address]779 May, Type 2 diabetes mellitus without complication, without long- term current use of insulin E11.[address] 38831- 3917 May, History of hypertension Z86.[address] 80251- 1885 May, [address] 84189- 9018 May, Type 2 diabetes mellitus without complication, without long- term current use of insulin E11.9 ; Elevated LDL cholesterol level E78.00 ; Low serum HDL R74.8 and Encounter for immunization Z23 [place] [id number] [place] [address] 48121- 2051 Apr, Encounter to establish care Z76.89 ; Abnormal CBC R79.89 ; History of hypertension Z86.79 ; Overweight (BMI 25.0-29.9) E66.3 ; Family history of diabetes insipidus Z83.49 ; Sore throat J02.9 and Tonsillitis with exudate J03.90 [place] [id number] [place] [address] 98135- 9473 Apr, Bipolar disorder, current episode mixed, mild F31.61 [place] [id number] [place] [address] 02333- 3253 Mar, [address] 37252- 0650 Mar, Bipolar disorder, current episode mixed, mild F31.61 [facility] [id number] [place] [address]- 8256 Mar, [facility] [id number], [place] [address]- 8176 Mar, Bipolar disorder in remission F31.70 [facility] [address], [place] [address]- 1596 Jan, [facility] [id number], [place] [address]- 2431 Jan, [facility] [id number] [place] [address] 32150- 5855 Oct, Generalized anxiety disorder F41.1 and Bipolar disorder in remission F31.70 [facility] [address] [place] [address]- 7386 Oct, [facility] [address], [place] [address]- 0417 Oct, [facility] [id number] [place] [address]- 5303 Oct, [facility] [address], [place] [address]- 7660 Oct, [facility] [address], [place] [address]- 0039 Jul, [facility] [id number], [place] [address]- 3213 Jun, [facility] [id number], [place] [address]- 8269 May, 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 and Generalized anxiety disorder F41.1 [facility] [id number] [place] [address]- 1336 Jan, [facility] [id number], [place] [address]- 4612 Jan, [facility] [address], [place] [address]- 3511 Jan, 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 and Generalized anxiety disorder F41.1 [facility] [id number] [place] [address] 280533- 7249 Sep, [facility] [id number] [place] [address] 572737- 2064 Sep, [facility] [id number] [place] [address] 67495- 8680 Jul, 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 and Generalized anxiety disorder F41.1 [facility] [id number] [place] [address] 670497- 7995 Jul, Otalgia of right ear H92.01 [facility] [id number] [place] [address] 56765- 3237 Jun, [facility] [id number] [place] [address] 76730- 7473 Mar, [facility] [id number] [place] [address] 91729- 5319 Jan, [facility] [id number] [place] [address] 94782- 3371 Jan, [facility] [address] [place] [address] 39365- 6437 Jan, Bipolar 1 disorder, mixed, moderate 296.62 and SHERRY ( generalized anxiety disorder) 300.02 [facility] [address] [place] [address] 36891- 1236 Jan, [facility] [id number] [place] [address] 15974- 7495 14 Nov, 2014 [facility] [id number] [place] [address] 63194- 6164 Nov, [facility] [id number] [place] [address] 25528- 4535 Oct, [facility] [address] [id number] [place] [address]- 4597 Oct, [facility] [place] [facility] [address] [id number] [place] [address]- 7480 Mar, [facility] [place] [facility] [address] [id number] [place] [address]- 6097 Mar, [facility] [place] [facility] [address] [id number] [place] [address]- 1294 Jan, [facility] [place] [facility] [address] [id number] [place] [address]- 8221 Jan, [facility] [place] [facility] [address] [id number] [place] [address]- 9602 December, [facility] [address] [id number] [place] [address]- 0475 December, [facility] [place] [facility] [address] [id number] [place] [address]- 5971 December, [facility] [place] [facility] [address] [id number] [place] [address]- 3804 December, [facility] [place] [facility] [address] [facility] [id number] [place] [address]- 8814 December, [facility] [place] [facility] [address] [id number] [place] [address]- 1747 December, [facility] [place] [facility] [address] [id number] [place] [address]- 2421 December, [facility] [place] [facility] [address] [id number] [place] [address]- 3670 December, [facility] [place] [facility] [address] [id number] [place] [address]- 3847 Nov, [facility] [place] [facility] [address] [id number] [place] [address]- 0466 Nov, [facility] [place] [facility] [address] [id number] [place] [address]- 8906 10 Oct, 2013 [facility] [place] [facility] [address] [id number] [place] [address]- 1875 Oct, [facility] [place] [facility] [address] [id number] [place] [address]- 4537 Oct, [facility] [place] [facility] [address] [id number] [place] [address]- 8794 Oct, [facility] [place] [facility] [address] [id number] [place] [address]- 2644 Oct, [facility] [place] [facility] [address] [id number] [place] [address]- 3986 Sep, [facility] [place] [facility] [address] [id number] [place] [address]- 6030 Sep, [facility] [place] [facility] [address] [id number] [place] [address]- 2319 Sep, [facility] [place] [facility] [address] [id number] [place] [address]- 9760 Sep, [facility] [place] [facility] [address] [id number] [place] [address]- 0420 Aug, [facility] [place] [facility] [address] [id number] [place] [address]- 4454 Aug, [facility] [place] [facility] [address] [id number] [place] [address]- 1351 Aug, [facility] [place] [facility] [address] [id number] [place] [address]- 3388 Aug, [facility] [place] [facility] [address] [id number] [place] [address]- 6266 13 Aug, 2013 [facility] [place] [facility] [address] [id number] [place] [address]- 8755 16 Jul, 2013 [facility] [place] [facility] [address] [id number] [place] [address]- 2546 16 Jul, 2013 [facility] [place] [facility] [address] [id number] [place] [address]- 2763 Jul, [facility] [place] [facility] [address] [id number] [place] [address]- 6465 Jul, [facility] [place] [facility] [address] [id number] [place] [address] 254 Jun, [facility] [place] [facility] [address] [id number] [place] [address]- 8928 Jun, [facility] [place] [facility] [address] [id number] [place] [address]- 8240 May, [facility] [place] [facility] [address] [id number] [place] 8772 May, [facility] [place] [facility] [address] [id number] [place] 3830 May, [facility] [place] [facility] [address] [id number] [place] [address]- 0128 May, [facility] [place] [facility] [address] [id number] [place] [address]- 3044 May, [facility] [place] [facility] [address] [id number] [place] [address]- 7213 15 May, 2013 [facility] [place] [facility] [address] [id number] 3758 09 May, 2013 [facility] [place] [facility] [address] [id number], [place] [address]- 2332 07 May, 2013 [facility] [place] [facility] [address] [id number] [place] [address]- 2563 02 May, 2013 [facility] [place] [facility] [address] [id number], [place] [address]- 9025 25 Apr, 2013 [facility] [place] [facility] [address] [id number] [place] [address] 2544 04 Apr, 2013 [facility] [place] [facility] [address] [id number] [place] [address]- 3682 Mar, [facility] [address] [id number] [place] [address]- 1639 Mar, [facility] [place] [facility] [address] [id number] [place] [address]- 4422 Mar, [facility] [address] [id number] [place] [address]- 8378 Mar, [facility] [address] [id number] [place] [address]- 6115 Mar, [facility] [address] [id number] [place] [address]- 9713 Mar, [facility] [address] [id number] [place] [address]- 6821 Mar, [facility] [address] [id number] [place] [address]- 4094 Mar, [facility] [address] [id number] [place] [address]- 7189 Mar, [facility] [address] [id number] [place] [address]- 5511 Mar, [facility] [address] [id number] [place] [address]- 2061 Mar, [facility] [place] [facility] [address] [id number] [place] [address]- 7355 Jan, [facility] [address] [id number] [place] [address]- 4384 Jan, [facility] [place] [facility] [address] [id number] [place] [address]- 9412 Jan, [facility] [place] [facility] [address] [id number] [place] [address]- 3750 December, [facility] [place] [facility] [address] [id number] [place] [address]- 7301 December, [facility] [address] [id number] [place] [address]- 2619 Nov, [facility] [place] [facility] [address] [id number] [place] [address]- 9968 Nov, [facility] [address] [id number] [place] [address]- 8988 28 Oct, 2012 [facility] [place] [facility] [address] [id number] [place] [address]- 7570 26 Oct, 2012 [facility] [address] [id number] [place] [address]- 7399 21 Oct, 2012 [facility] [place] [facility] [address] [id number] [place] [address]- 0651 20 Oct, 2012 [facility] [address] [id number] [place] [address]- 7425 19 Oct, 2012 [facility] [address] [id number] [place] [address]- 4615 19 Oct, 2012 [facility] [place] [facility] [address] [id number] [place] [address]- 7119 17 Oct, 2012 [facility] [place] [facility] [address] [id number] [place] [address]- 6056 16 Oct, 2012 [facility] [place] [facility] [address] [id number] [place] [address]- 9618 14 Oct, 2012 [facility] [place] [facility] [address] [id number] [place] [address]- 8660 13 Oct, 2012 [facility] [place] [facility] [address] [id number] [place] [address]- 3636 05 Oct, 2012 [facility] [place] [facility] [address] [id number] [place] [address]- 6827 14 Sep, 2012 [facility] [place] [facility] [address] [id number] [place] [address]- 0409 08 Sep, 2012 [facility] [place] [facility] [address] [id number] [place] [address]- 4460 Aug, [facility] [address] [id number] [place] [address]- 4290 16 Aug, 2012 [facility] [address] [id number] [place] [address]- 9145 Aug, [facility] [address] [id number] [place] [address]- 7243 Aug, [facility] [address] [id number] [place] [address]- 0315 Aug, [facility] [address] [id number] [place] [address]- 7153 Jul, [facility] [address] [id number] [place] [address]- 9136 Jul, [facility] [address] [id number] [place] [address]- 6251 Jul, [facility] [address] [id number] [place] [address]- 2116 19 Jul, 2012 [facility] [address] [id number] [place] [address]- 3621 18 Jul, 2012 [facility] [address] [id number] [place] [address]- 5270 17 Jul, 2012 [facility] [place] [facility] [address] [id number] [place] [address] 14 Jul, 2012 [facility] [place] [facility] [address] [id number] [place] [address] 14 Jul, 2012 [facility] [place] [facility] [address] [id number] [place] [address] 06 Jul, 2012 [facility] [place] [facility] [address] [id number] [place] [address] 06 Jul, 2012 [facility] [place] [facility] [address] [id number] [place] [address] 05 Jul, 2012 [facility] [place] [facility] [address] [id number] [place] [address] Jul, [facility] [place] [facility] [address] [id number] [place] [address] Jul, [facility] [place] [facility] [address] [id number] [place] [address] Jul, [facility] [place] [facility] [address] [id number] [place] [address] Jul, [facility] [place] [facility] [address] [id number] [place] [address] Jul, [facility] [place] [facility] [address] [id number] [place] [address] Jun, [facility] [place] [facility] [address] [id number] [place] [address] Jun, [facility] [place] [facility] [address] [id number] [place] [address] Jun, [facility] [place] [facility] [address] [id number] [place] [address] Jun, [facility] [place] [facility] [address] [id number] [place] [address] Jun, [facility] [place] [facility] [address] [id number] [place] [address]- [address] Jun, [facility] [place] [facility] [address] [id number] [place] [address] Jun, [facility] [place] [facility] [address] [id number] [place] [address] Jun, [facility] [place] [facility] [address] [id number] [place] [address] Jun, [facility] [place] [facility] [address] [id number] [place] [address] May, [facility] [place] [facility] [address] [id number] [place] [address] Mar, [facility] [place] [facility] [address] [id number] [place] [address] Mar, [facility] [place] [facility] [address] [id number] [place] [address] Mar, [facility] [place] [facility] [address] [id number] [place] [address] Mar, [facility] [place] [facility] [address] [id number] [place] [address] Jan, [facility] [place] [facility] [address] [id number] [place] [address] Jan, [facility] [place] [facility] [address] [id number] [place] [address] Jan, [facility] [place] [facility] [address] [id number] [place] [address] Jan, [facility] [place] [facility] [address] [id number] [place] [address] Jan, [facility] [place] [facility] [address] [id number] [place] [address] Jan, [facility] [place] [facility] [address] [id number] [place] [address]- [address] December, [facility] [place] [facility] [address] [id number] [place] [address] December, [facility] [place] [facility] [address] [id number] [place] [address] Nov, [facility] [place] [facility] [address] [id number] [place] [address] Nov, [facility] [place] [facility] [address] [id number] [place] [address] Oct, [facility] [place] [facility] [address] [id number] [place] [address] Oct, [facility] [place] [facility] [address] [id number] [place] [address] Oct, [facility] [place] [facility] [address] [id number] [place] [address] Oct, [facility] [place] [facility] [address] [id number] [place] [address] Aug, [facility] [place] [facility] [address] [id number] [place] [address] Aug, [facility] [place] [facility] [address] [id number] [place] [address] Jun, [facility] [place] [facility] [address] [id number] [place] [address] Jun, [facility] [place] [facility] [address] [id number] [place] [address] Jun, [facility] [place] [facility] [address] [id number] [place] [address] Jun, [facility] [place] [facility] [address] [id number] [place] [address] Jun, [facility] [place] [facility] [address] [id number] [place] [address] May, [facility] [place] [facility] [address] [id number] [place] [address] May, [facility] [place] [facility] [address] [id number] [place] [address] May, [facility] [place] [facility] [address] [id number] [place] [address] May, [facility] [place] [facility] [address] [id number] [place] [address] 24 May, 2011 [facility] [place] [facility] [address] [id number] [place] [address] May, [facility] [place] [facility] [address] [id number] [place] [address] 14 May, 2011 [facility] [address] [facility] [id number], [place] [address] Mar, [facility] [id number] [address] May, [facility] [address] [facility] [id number], [place] [address] Jan, [facility] [address] [facility] [id number] [address] [address] Jul, [facility] [address] [facility] [id number] [address] [address] Jun, [facility] [id number] [address] Jun, [facility] [id number], [place] [address] Jun, [facility] [id number], [place] [address] Jun, [facility] [id number], [place] [address] Jun, [facility] [id number], [place] [address] May, [facility] [id number], [place] [address] May, [facility] [id number], [place] [address] May, [facility] [address] [id number], [place] [address] Jul, IMMUNIZATIONS No Known Immunizations SOCIAL HISTORY Never Assessed REASON FOR VISIT u/s order PLAN OF CARE Activity Details Pending Test Ultrasound : Lower Extremity VITAL SIGNS MEDICATIONS Unknown Medications RESULTS No Results PROCEDURES No Known procedures INSTRUCTIONS MEDICATIONS ADMINISTERED No Known Medications MEDICAL (GENERAL) HISTORY Type Description Date Medical History hypertension Medical History depression (hx of suicidal plan in 2012) Medical History insomnia Medical History bipolar disorder Surgical History Appendix Surgical History Tubal Ligation Hospitalization History Child /surgery Hospitalization History psych inpatient treatment, [facility] 2012
--- OUTSIDE RECORDS SUMMARY | 2018-04-18 15:28 | XMS REPORT ---
Author Author CITLALY SKINNER Organization [facility] Address [address] [place] [address] Care Team Providers Care Launchman Name Role Phone CITLALY SKINNER Unavailable PROBLEMS Type Condition ICD9-CM Code RHT31-EP Code Onset Dates Condition Status SNOMED Code Problem History of hypertension Z86.79 Active 118194650 Problem Elevated LDL cholesterol level E78.00 Active 851642183 Problem Personality disorder F60.9 Active 71433575 Problem Other chronic pain G89.29 Active 37349113 Problem Hypoglycemia E16.2 Active 550646809 Problem Acute seasonal allergic rhinitis, unspecified trigger J30.2 Active 280954505 Problem Type 2 diabetes mellitus without complication, without long-term current use of insulin E11.9 Active 790063832 Problem Primary insomnia F51.01 Active 1028520 Problem Acute non intractable tension-type headache G44.209 Active 228573976 Problem Generalized anxiety disorder F41.1 Active 85823183 Problem Bipolar disorder in remission F31.70 Active 43958393 Problem Family history of diabetes insipidus Z83.49 Active 941196700 Problem Abnormal CBC R79.89 Active 281261089 Problem Bipolar disorder, current episode mixed, mild F31.61 Active 144788866 Problem History of diabetes mellitus Z86.39 Active 539357372 Problem Overweight (BMI 25.0-29.9) E66.3 Active 579081729 Problem Sore throat J02.9 Active 901596839 ALLERGIES Substance Reaction Event Type Date Status MetFORMIN HCl ER nausea Drug Allergy Jan, Active Zyprexa rash Drug Allergy Jan, Active Cipro rash Drug Allergy Jan, Active ENCOUNTERS Encounter Location Date Diagnosis [facility] [address] [facility] [id number] [address] Jun, [facility] [address] [facility] [id number], [place] [address] Apr, [place] [id number] [place] [address] 63125- 4835 Mar, [place] [address] [address]- 3763 Mar, Plantar fascia syndrome M72.2 [place] [address] 95655- 5547 Jan, UTI symptoms R39.9 and Epigastric pain R10.13 [place] [address] 38432- 7427 Jan, Posterior right knee pain M25.561 [place] [address] 59923- 3540 Jan, Posterior right knee pain M25.561 [place] [address] 56738- 5831 Jan, Scabies B86 [place] [address] 80013- 2133 Jan, Bipolar disorder, current episode mixed, mild F31.61 and Personality disorder F60.9 [place] [address] 65911- 4874 Jan, Cyst of ovary, unspecified laterality N83.209 [place] [id number] [place] [address] 48811- 4368 December, Cyst of ovary, unspecified laterality N83.209 [place] [id number] [place] [address] 28641- 7419 December, [place] [address] 37916- 6799 December, Dysuria R30.0 [place] [id number] [place] [address] 36629- 2757 December, [place] [address] 40919- 3822 Nov, Bipolar disorder, current episode mixed, mild F31.61 and Personality disorder F60.9 [place] [id number] [place] [address] 81539- 4422 Nov, Elevated LDL cholesterol level E78.00 and Type 2 diabetes mellitus without complication, without long-term current use of insulin E11.9 [place] [id number] [place] [address] 01034- 0110 Nov, Elevated LDL cholesterol level E78.00 and Type 2 diabetes mellitus without complication, without long-term current use of insulin E11.9 [place] [id number] [place] [address] 51382- 9249 Nov, Other chronic pain G89.29 and Pain in left leg M79.605 [place] [address] 71576- 8461 Nov, Acute pain of left knee M25.562 ; Syncope, unspecified syncope type R55 and Hypoglycemia E16.2 [place] [id number] [place] [address] 48380- 5512 Oct, Syncope, unspecified syncope type R55 [place] [address] 00644- 7401 Oct, Bipolar disorder, current episode mixed, mild F31.61 and Personality disorder F60.9 [place] [id number] [place] [address] 36934- 0903 Oct, Lump of right breast N63.10 [place] [id number] [place] [address] 44453- 6380 Oct, Generalized anxiety disorder F41.1 [place] [address] 65395- 1846 Oct, Generalized anxiety disorder F41.1 ; Bipolar disorder in remission F31.70 ; Bipolar disorder, current episode mixed, mild F31.61 and Primary insomnia F51.01 [place] [address] [place] [address]- 1993 20 Oct, 2017 Primary insomnia F51.01 and Lump of right breast N63.10 [place] [address] 24690- 3441 16 Oct, 2017 Enteritis K52.9 [facility] [address] [address] -[address] 14 Oct, 2017 Allergic conjunctivitis of both eyes H10.13 and Acute non intractable tension-type headache G44.209 [facility] [address] 87164- 6296 14 Oct, 2017 [place] [address] 06832- 5665 Oct, Bipolar disorder, current episode mixed, mild F31.61 [place] [address] 27682- 6408 22 Sep, 2017 Right flank pain R10.9 and Thoracic spine pain M54.6 [place] [address] 87021- 9593 16 Sep, 2017 Generalized anxiety disorder F41.1 and Bipolar disorder, current episode mixed, mild F31.61 [place] [id number] [place] [address] 96140- 5409 14 Sep, 2017 [place] [address] 50420- 8622 14 Sep, 2017 Generalized anxiety disorder F41.1 ; Bipolar disorder in remission F31.70 and Personality disorder F60.9 [place] [address] 59456- 7842 12 Sep, 2017 Spasm of thoracic back muscle M62.830 ; Type 2 diabetes mellitus without complication, without long-term current use of insulin E11.9 and Generalized anxiety disorder F41.1 [place] [id number] [place] [address] 59308- 8344 12 Sep, 2017 Bipolar disorder, current episode mixed, mild F31.61 and Personality disorder F60.9 [place] [id number] [place] [address] 89267- 6360 Aug, [place] [id number] [place] [address] 11427- 7211 Aug, Bipolar disorder, current episode mixed, mild F31.61 and Personality disorder F60.9 [place] [address] 35889- 9886 05 Aug, 2017 Type 2 diabetes mellitus without complication, without long- term current use of insulin E11.9 ; Generalized anxiety disorder F41.1 ; Bipolar disorder in remission F31.70 and Overweight (BMI 25.0-29.9) E66.3 [place] [id number] [place] [address] 18565- 9597 04 Aug, 2017 Type 2 diabetes mellitus without complication, without long- term current use of insulin E11.9 ; Elevated LDL cholesterol level E78.00 and Bipolar disorder, current episode mixed, mild F31.61 [facility] [id number] [place] [address] 44218 -8599 Jul, Vaginal discharge N89.8 ; Skin irritation R23.8 and Dysuria R30.0 [facility] [id number] [place] [address] 24147 -2871 Jul, Acute seasonal allergic rhinitis, unspecified trigger J30.2 and Chest pain, unspecified type R07.9 [place] [id number] [place] [address] 47393- 1767 Jun, Bipolar disorder, current episode mixed, mild F31.61 [place] [id number] [place] [address] 04740- 8189 Jun, [place] [id number] [place] [address] 78076- 7149 Jun, Bipolar disorder, current episode mixed, mild F31.61 and Personality disorder F60.9 [place] [address] [place] [address]- 0794 Jun, [place] [address] 51053- 6004 Jun, Type 2 diabetes mellitus without complication, without long- term current use of insulin E11.9 and Dysuria R30.0 [place] [address] 91948- 4218 May, Bipolar disorder, current episode mixed, mild F31.61 ; Personality disorder F60.9 and Homeless Z59.0 [place] [address] 92240- 6969 May, Type 2 diabetes mellitus without complication, without long- term current use of insulin E11.9 [place] [address] 03089- 5422 May, History of hypertension Z86.79 [place] [address] 96346- 9752 May, [place] [address] 59067- 8174 May, Type 2 diabetes mellitus without complication, without long- term current use of insulin E11.9 ; Elevated LDL cholesterol level E78.00 ; Low serum HDL R74.8 and Encounter for immunization Z23 [address] [address]- 1270 Apr, Encounter to establish care Z76.89 ; Abnormal CBC R79.89 ; History of hypertension Z86.79 ; Overweight (BMI 25.0-29.9) E66.3 ; Family history of diabetes insipidus Z83.49 ; Sore throat J02.9 and Tonsillitis with exudate J03.90 [place] [id number] [place] [address] 86463- 7785 Apr, Bipolar disorder, current episode mixed, mild F31.61 [place] [address] 82097- 8570 Mar, [facility] [address] [address]- 3206 Mar, Bipolar disorder, current episode mixed, mild F31.61 [facility] [id number] [place] [address]- 1726 Mar, [facility] [address] [place] [address]- 2324 Mar, Bipolar disorder in remission F31.70 [facility] [id number] [place] [address]- 2486 Jan, [facility] [address] [place] [address]- 4546 Jan, [facility] [address] [place] [address]- 1906 Oct, Generalized anxiety disorder F41.1 and Bipolar disorder in remission F31.70 [facility] [address] [place] [address]- 5764 Oct, [facility] [address] [place] [address]- 6197 Oct, [facility] [address] [place] [address]- 5073 Oct, [facility] [address] [address]- 5456 Oct, [facility] [address] [address]- 8346 Jul, [facility] [address]- 4076 Jun, [facility] [id number] 9203 May, 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 and Generalized anxiety disorder F41.1 [facility] [address] 8046 Jan, [facility] [address] [address]- 5400 Jan, [facility] [id number] [place] [address] 569484- 0888 Jan, 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 and Generalized anxiety disorder F41.1 [facility] [id number] [place] [address] 563572- 7276 Sep, [facility] [id number] [place] [address] 349779- 4308 Sep, [facility] [id number] [place] [address] 213474- 6751 Jul, 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 and Generalized anxiety disorder F41.1 [facility] [id number] [place] [address] 02444- 6039 Jul, Otalgia of right ear H92.01 [facility] [id number] [place] [address] 32417- 7192 Jun, [facility] [id number] [place] [address] 973722- 2757 Mar, [facility] [id number] [place] [address] 67591- 8158 Jan, [facility] [address] [place] [address] 91325- 4098 Jan, [facility] [id number] [place] [address] 12971- 6562 Jan, Bipolar 1 disorder, mixed, moderate 296.62 and SHERRY ( generalized anxiety disorder) 300.02 [facility] [id number] [place] [address] 06637- 6432 Jan, [facility] [address] [address] Nov, [facility] [address] [place] [address]- 8375 Nov, [facility] [place] [facility] [address] [id number] [place] [address]- 7908 Oct, [facility] [place] [facility] [address] [id number] [place] [address]- 7861 Oct, [facility] [place] [facility] [address] [id number] [place] [address]- 8447 Mar, [facility] [place] [facility] [address] [id number] [place] [address]- 3663 Mar, [facility] [place] [facility] [address] [id number] [place] [address]- 3233 Jan, [facility] [place] [facility] [address] [id number] [place] [address]- 8369 Jan, [facility] [place] [facility] [address] [id number] [place] [address]- 6454 December, [facility] [place] [facility] [address] [id number] [place] [address]- 9148 December, [facility] [place] [facility] [address] [id number] [place] [address]- 5693 December, [facility] [place] [facility] [address] [id number] [place] [address]- 8175 December, [facility] [place] [facility] [address] [id number] [place] [address]- 2421 December, [facility] [place] [facility] [address] [id number] [place] [address]- 8973 December, [facility] [place] [facility] [address] [id number] [place] [address]- 5266 December, [facility] [place] [facility] [address] [id number] [place] [address]- 1275 December, [facility] [place] [facility] [address] [id number] [place] [address]- 0874 Nov, [facility] [place] [facility] [address] [id number] [place] [address]- 1795 15 Nov, 2013 [facility] [place] [facility] [address] [id number] [place] [address]- 6022 Oct, [facility] [place] [facility] [address] [id number] [place] [address]- 7619 Oct, [facility] [place] [facility] [address] [id number] [place] [address]- 7081 Oct, [facility] [place] [facility] [address] [id number] [place] [address]- 5729 Oct, [facility] [place] [facility] [address] [id number] [place] [address]- 0497 Oct, [facility] [place] [facility] [address] [id number] [place] [address]- 7402 Sep, [facility] [place] [facility] [address] [id number] [place] [address]- 9464 Sep, [facility] [place] [facility] [address] [id number] [place] [address]- 1342 Sep, [facility] [place] [facility] [address] [id number] [place] [address]- 8348 Sep, [facility] [place] [facility] [address] [id number] [place] [address]- 5744 Aug, [facility] [place] [facility] [address] [id number] [place] [address]- 5664 Aug, [facility] [place] [facility] [address] [id number] [place] [address]- 1836 Aug, [facility] [place] [facility] [address] [id number] [place] [address]- 3075 14 Aug, 2013 [facility] [place] [facility] [address] [id number] [place] [address]- 5612 13 Aug, 2013 [facility] [place] [facility] [address] [id number] [place] [address]- 6235 16 Jul, 2013 [facility] [place] [facility] [address] [id number] [place] [address]- 2425 16 Jul, 2013 [facility] [place] [facility] [address] [id number], [place] [address]- 2114 Jul, [facility] [place] [facility] [address] [id number] [place] [address]- 5257 Jul, [facility] [place] [facility] [address] [id number] [place] [address]- 2330 Jun, [facility] [place] [facility] [address] [id number] [place] [address]- 9884 Jun, [facility] [place] [facility] [address] [id number] [place] [address]- 4350 May, [facility] [place] [facility] [address] [id number] [address]- 3729 May, [facility] [place] [facility] [address] [id number], [place] [address]- 5292 May, [facility] [place] [facility] [address] [id number] [place] [address]- 9287 18 May, 2013 [facility] [place] [facility] [address] [facility] [id number], [place] [address]- 5260 May, [facility] [place] [facility] [address] [id number], [place] [address]- 5438 15 May, 2013 [facility] [place] [facility] [address] [id number], [place] [address]- 9002 09 May, 2013 [facility] [place] [facility] [address] [id number], [place] [address]- 2539 May, [facility] [place] [facility] [address] [facility] [id number], [place] [address]- 0535 May, [facility] [place] [facility] [address] [id number], [place] [address]- 2729 Apr, [facility] [place] [facility] [address] [id number] [place] [address]- 1867 Apr, [facility] [place] [facility] [address] [id number] [place] [address]- 5185 Mar, [facility] [place] [facility] [address] [id number] [place] [address] 2543 Mar, [facility] [place] [facility] [address] [id number] [place] [address]- 5080 Mar, [facility] [place] [facility] [address] [id number] [place] [address]- 8080 Mar, [facility] [place] [facility] [address] [id number] [place] [address]- 6552 Mar, [facility] [place] [facility] [address] [id number] [place] [address]- 4244 Mar, [facility] [place] [facility] [address] [id number] [place] [address]- 6197 Mar, [facility] [place] [facility] [address] [id number] [place] [address]- 8749 Mar, [facility] [place] [facility] [address] [id number] [place] [address]- 2010 Mar, [facility] [place] [facility] [address] [id number] [place] [address]- 8832 Mar, [facility] [place] [facility] [address] [id number] [place] [address]- 9356 Mar, [facility] [place] [facility] [address] [id number] [place] [address]- 1081 Jan, [facility] [place] [facility] [address] [id number] [place] [address]- 2401 Jan, [facility] [place] [facility] [address] [id number] [place] [address]- 5202 Jan, [facility] [place] [facility] [address] [id number] [place] [address]- 3227 December, [facility] [address] [id number] [place] [address]- 7886 December, [facility] [address] [id number] [place] [address]- 3161 Nov, [facility] [address] [id number] [place] [address]- 4341 Nov, [facility] [address] [id number] [place] [address]- 0531 Oct, [facility] [address] [id number] [place] [address]- 5704 26 Oct, 2012 [facility] [address] [id number] [place] [address]- 1888 21 Oct, 2012 [facility] [address] [id number] [place] [address]- 4038 20 Oct, 2012 [facility] [place] [facility] [address] [id number] [place] [address]- 5932 19 Oct, 2012 [facility] [address] [id number] [place] [address]- 3506 19 Oct, 2012 [facility] [place] [facility] [address] [id number] [place] [address]- 0558 17 Oct, 2012 [facility] [address] [id number] [place] [address]- 4035 16 Oct, 2012 [facility] [place] [facility] [address] [id number], [place] [address]- 8539 14 Oct, 2012 [facility] [place] [facility] [address] [id number] [place] [address]- 2570 13 Oct, 2012 [facility] [place] [facility] [address] [id number] [place] [address]- 0972 05 Oct, 2012 [facility] [place] [facility] [address] [id number] [place] [address]- 2261 14 Sep, 2012 [facility] [place] [facility] [address] [id number] [place] [address]- 7956 08 Sep, 2012 [facility] [address] [id number] [place] [address]- 5148 Aug, [facility] [address] [id number] [place] [address]- 3716 16 Aug, 2012 [facility] [address] [id number] [place] [address]- [address] Aug, [facility] [address] [id number] [place] [address]- 4111 Aug, [facility] [address] [id number] [place] [address]- 8123 Aug, [facility] [address] [id number] [place] [address] Jul, [facility] [address] [id number] [place] [address] Jul, [facility] [address] [id number] [place] [address] Jul, [facility] [address] [id number] [place] [address] Jul, [facility] [address] [id number] [place] [address] 18 Jul, 2012 [facility] [address] [id number] [place] [address] 17 Jul, 2012 [facility] [address] [id number] [place] [address] 14 Jul, [address] [facility] [address] [id number] [place] [address] 14 Jul, 2012 [facility] [address] [id number] [place] [address] 06 Jul, 2012 [facility] [address] [id number] [place] [address] Jul, [facility] [place] [facility] [address] [id number] [place] [address] Jul, [facility] [place] [facility] [address] [id number] [place] [address] Jul, [facility] [place] [facility] [address] [id number] [place] [address] Jul, [facility] [place] [facility] [address] [id number] [place] [address] 1979 Jul, [facility] [place] [facility] [address] [id number] [place] [address] Jul, [facility] [place] [facility] [address] [id number] [place] [address] Jul, [facility] [place] [facility] [address] [id number] [place] [address] Jun, [facility] [place] [facility] [address] [id number], [place] [address] Jun, [facility] [place] [facility] [address] [id number] [place] [address] Jun, [facility] [place] [facility] [address] [facility] [id number], [place] [address] Jun, [facility] [place] [facility] [address] [facility] [id number], [place] [address] Jun, [facility] [place] [facility] [address] [id number], [place] [address] Jun, [facility] [place] [facility] [address] [id number], [place] [address] Jun, [facility] [place] [facility] [address] [id number], [place] [address] Jun, [facility] [place] [facility] [address] [facility] [id number], [place] [address] 13 Jun, 2012 [facility] [place] [facility] [address] [id number], [place] [address] May, [facility] [place] [facility] [address] [id number] [place] [address] Mar, [facility] [place] [facility] [address] [id number] [place] [address] Mar, [facility] [place] [facility] [address] [id number] [place] [address] Mar, [facility] [place] [facility] [address] [id number] [place] [address] Mar, [facility] [place] [facility] [address] [id number] [place] [address] Jan, [facility] [place] [facility] [address] [id number] [place] [address] Jan, [facility] [place] [facility] [address] [id number] [place] [address] Jan, [facility] [place] [facility] [address] [id number] [place] [address] Jan, [facility] [place] [facility] [address] [facility] [id number] [place] [address] Jan, [facility] [place] [facility] [address] [facility] [id number] [place] [address] Jan, [facility] [place] [facility] [address] [id number] [place] [address] December, [facility] [place] [facility] [address] [id number] [place] [address] December, [facility] [place] [facility] [address] [id number] [place] [address] Nov, [facility] [place] [facility] [address] [id number] [place] [address] Nov, [facility] [place] [facility] [address] [facility] [id number] [place] [address] Oct, [facility] [place] [facility] [address] [id number] [place] [address] Oct, [facility] [place] [facility] [address] [id number] [place] [address] Oct, [facility] [place] [facility] [address] [id number] [place] Oct, [facility] [place] [facility] [address] [id number] [place] [address] Aug, [facility] [place] [facility] [address] [id number] [place] [address] Aug, [facility] [place] [facility] [address] [id number] [place] [address] Jun, [facility] [place] [facility] [address] [id number] [place] [address] Jun, [facility] [place] [facility] [address] [id number] [place] [address] Jun, [facility] [place] [facility] [address] [id number] [place] [address] Jun, [facility] [place] [facility] [address] [id number] [place] [address] Jun, [facility] [place] [facility] [address] [id number] [place] [address] May, [facility] [place] [facility] [address] [id number] [place] [address] May, [facility] [place] [facility] [address] [id number] [place] [address] May, [facility] [place] [facility] [address] [id number] [place] [address] May, [facility] [place] [facility] [address] [id number] [place] [address] May, [facility] [place] [facility] [address] [id number] [place] [address] May, [facility] [address] [facility] [id number], [place] [address] 14 May, 2011 [facility] [address] [facility] [id number], [place] [address] Mar, [facility] [address] [facility] [id number], [place] [address] 11 May, 2010 [facility] [address] [facility] [id number], [place] [address] Jan, [facility] [address] [facility] [id number] [address] Jul, [facility] [address] [facility] [id number], [place] [address] Jun, [facility] [address] [facility] [id number], [place] [address] Jun, [facility] [address] [facility] [id number], [place] [address] Jun, [facility] [address] [facility] [id number], [place] [address] Jun, [facility] [address] [facility] [id number], [place] [address] Jun, [facility] [address] [facility] [id number], [place] [address] May, [facility] [address] [facility] [id number], [place] [address] May, [facility] [address] [facility] [id number], [place] [address] May, [facility] [address] [facility] [id number][place] [address] Jul, IMMUNIZATIONS No Known Immunizations SOCIAL HISTORY Never Assessed REASON FOR VISIT right knee pain, cant bear weight and has a ball on the back of the knee pain is for 2 weeks-Shira MARRUFO PLAN OF CARE Activity Details Follow Up prn Reason:knee pain VITAL SIGNS Height 62 in 2018-02-16 Weight 170.0 lbs 2018-02-16 Temperature 98.6 degrees Fahrenheit 2018-02-16 Heart Rate 76 bpm 2018-02-16 Respiratory Rate 18 2018-02-16 BMI 31.09 kg/m2 2018-02-16 Blood pressure systolic 126 mmHg 2018-02-16 Blood pressure diastolic 84 mmHg 2018-02-16 MEDICATIONS Medication Instructions Dosage Frequency Start Date End Date Duration Status Permethrin 5 % Externally Once a day 1 application to affected area 24h Jan, 1 dose Active Azelastine HCl 0.05 % Ophthalmic Twice a day 1 drop into affected eye 12h Oct, Active Glucocard Expression Test 1 subcutaneously 2 times a day test 2 times per day 12h May, 12 months Active Lisinopril 5 MG Orally Once a day 1 tablet 24h 90 days Active Atorvastatin Calcium 10 mg Orally Once a day 1 tablet 24h May, 90 days Active Trazodone HCl 100 MG Orally Once a day 1 tablet or 1.5 tabs or 2 tabs 24h Jan, 30 day(s) Active Glimepiride 1 MG Orally Once a day 1 tablet with breakfast or the first main meal of the day 24h May, 90 days Active Abilify 10 MG Orally Once a day at bedtime 1 tablet Active Voltaren 1 % Transdermal 4 times a day prn pain as directed Jan, 15 Apr, 2018 30 days Active RESULTS Name Result Date Reference Range Xray : Knee, Right 3 views (IN HOUSE) 2018-02-16 PROCEDURES Procedure Date Ordered Result Body Site X-RAY EXAM OF KNEE, 3 February 16, 2018 INSTRUCTIONS MEDICATIONS ADMINISTERED No Known Medications MEDICAL (GENERAL) HISTORY Type Description Date Medical History hypertension Medical History depression (hx of suicidal plan in 2012) Medical History insomnia Medical History bipolar disorder Surgical History Appendix Surgical History Tubal Ligation Hospitalization History Child /surgery Hospitalization History psych inpatient treatment, [facility] 2011
--- OUTSIDE RECORDS SUMMARY | 2018-04-18 15:29 | XMS REPORT ---
Author Author ALEXANDRU ARACELIS Organization [facility] Address [address] [place] [address] Care Team Providers Care Portfolio Administrator Name Role Phone JASWANTMARCELLUS ARACELIS Unavailable PROBLEMS Type Condition ICD9-CM Code SAB36-IQ Code Onset Dates Condition Status SNOMED Code Problem History of hypertension Z86.79 Active 332665694 Problem Elevated LDL cholesterol level E78.00 Active 778737727 Problem Personality disorder F60.9 Active 03861801 Problem Other chronic pain G89.29 Active 40874394 Problem Hypoglycemia E16.2 Active 226303917 Problem Acute seasonal allergic rhinitis, unspecified trigger J30.2 Active 067267500 Problem Type 2 diabetes mellitus without complication, without long-term current use of insulin E11.9 Active 671541710 Problem Primary insomnia F51.01 Active 8909986 Problem Acute non intractable tension-type headache G44.209 Active 557835114 Problem Generalized anxiety disorder F41.1 Active 34960237 Problem Bipolar disorder in remission F31.70 Active 32738730 Problem Family history of diabetes insipidus Z83.49 Active 818516870 Problem Abnormal CBC R79.89 Active 296669255 Problem Bipolar disorder, current episode mixed, mild F31.61 Active 804799075 Problem History of diabetes mellitus Z86.39 Active 894145668 Problem Overweight (BMI 25.0-29.9) E66.3 Active 391339135 Problem Sore throat J02.9 Active 633442706 ALLERGIES No Information ENCOUNTERS Encounter Location Date Diagnosis [facility] [address] [facility] [id number] [address] Apr, [facility] [address] [id number] [address] 2084 Mar, [facility] [address] [facility] [id number] [address] 3506 Mar, Plantar fascia syndrome M72.2 [place] [id number] [place] [address] 96665- 1062 Jan, UTI symptoms R39.9 and Epigastric pain R10.13 [place] [id number] [place] [address] 71583- 1547 Jan, Posterior right knee pain M25.561 [place] [address] 30168- 3957 Jan, Posterior right knee pain M25.561 [place] [id number] [place] [address] 98038- 4807 Jan, Scabies B86 [place] [address] 91909- 3951 Jan, Bipolar disorder, current episode mixed, mild F31.61 and Personality disorder F60.9 [place] [address] 47280- 8358 Jan, Cyst of ovary, unspecified laterality N83.209 [place] [address] 21499- 7094 December, Cyst of ovary, unspecified laterality N83.209 [place] [id number] [place] [address] 34510- 0732 December, [place] [id number] [place] [address] 01345- 5425 December, Dysuria R30.0 [place] [id number] [place] [address] 00295- 0310 December, [place] [address] 50960- 8174 Nov, Bipolar disorder, current episode mixed, mild F31.61 and Personality disorder F60.9 [place] [id number] [place] [address] 79834- 2671 Nov, Elevated LDL cholesterol level E78.00 and Type 2 diabetes mellitus without complication, without long-term current use of insulin E11.9 [place] [id number] [place] [address] 64172- 7107 Nov, Elevated LDL cholesterol level E78.00 and Type 2 diabetes mellitus without complication, without long-term current use of insulin E11.9 [place] [id number] [place] [address] 63839- 0263 04 Nov, 2017 Other chronic pain G89.29 and Pain in left leg M79.605 [place] [id number] [place] [address] 80610- 7244 Nov, Acute pain of left knee M25.562 ; Syncope, unspecified syncope type R55 and Hypoglycemia E16.2 [place] [id number] [place] [address] 76215- 8924 Oct, Syncope, unspecified syncope type R55 [place] [address] 78535- 9260 Oct, Bipolar disorder, current episode mixed, mild F31.61 and Personality disorder F60.9 [place] [id number] [place] [address] 03402- 9375 Oct, Lump of right breast N63.10 [place] [id number] [place] [address] 76990- 1611 Oct, Generalized anxiety disorder F41.1 [place] [id number] [place] [address] 21637- 8410 Oct, Generalized anxiety disorder F41.1 ; Bipolar disorder in remission F31.70 ; Bipolar disorder, current episode mixed, mild F31.61 and Primary insomnia F51.01 [place] [id number] [place] [address] 46068- 2107 Oct, Primary insomnia F51.01 and Lump of right breast N63.10 [place] [id number] [place] [address] 00913- 7505 Oct, Enteritis K52.9 [facility] [id number] [place] [address] 42392 -2787 14 Oct, 2017 Allergic conjunctivitis of both eyes H10.13 and Acute non intractable tension-type headache G44.209 [facility] [id number] [place] [address] 74291- 6376 14 Oct, 2017 [facility] [address] 53247- 0201 Oct, Bipolar disorder, current episode mixed, mild F31.61 [place] [address] 23487- 6003 Sep, Right flank pain R10.9 and Thoracic spine pain M54.6 [facility] [id number] [place] [address] 18722- 3598 16 Sep, 2017 Generalized anxiety disorder F41.1 and Bipolar disorder, current episode mixed, mild F31.61 [facility] [id number] [place] [address] 84069- 0083 Sep, [facility] [address] 51706- 3527 Sep, Generalized anxiety disorder F41.1 ; Bipolar disorder in remission F31.70 and Personality disorder F60.9 [facility] [id number] [place] [address] 86352- 9390 12 Sep, 2017 Spasm of thoracic back muscle M62.830 ; Type 2 diabetes mellitus without complication, without long-term current use of insulin E11.9 and Generalized anxiety disorder F41.1 [place] [id number] [place] [address] 03138- 2112 Sep, Bipolar disorder, current episode mixed, mild F31.61 and Personality disorder F60.9 [facility] [id number] [place] [address] 86006- 2384 Aug, [facility] [address] 60589- 5529 Aug, Bipolar disorder, current episode mixed, mild F31.61 and Personality disorder F60.9 [place] [address] [place] 985783- 5124 Aug, Type 2 diabetes mellitus without complication, without long- term current use of insulin E11.9 ; Generalized anxiety disorder F41.1 ; Bipolar disorder in remission F31.70 and Overweight (BMI 25.0-29.9) E66.3 [place] [address] 57093- 3511 Aug, Type 2 diabetes mellitus without complication, without long- term current use of insulin E11.9 ; Elevated LDL cholesterol level E78.00 and Bipolar disorder, current episode mixed, mild F31.61 [facility] [address] [place] [address] 33289 -7620 Jul, Vaginal discharge N89.8 ; Skin irritation R23.8 and Dysuria R30.0 [facility] [address] [address] -5712 Jul, Acute seasonal allergic rhinitis, unspecified trigger J30.2 and Chest pain, unspecified type R07.9 [place] [id number] [place] [address] 38585- 7813 Jun, Bipolar disorder, current episode mixed, mild F31.61 [place] [id number] [place] [address] 83409- 6664 Jun, [address] 92991- 7026 Jun, Bipolar disorder, current episode mixed, mild F31.61 and Personality disorder F60.[address] 37935- 9871 Jun, [address] 20237- 0404 Jun, Type 2 diabetes mellitus without complication, without long- term current use of insulin E11.9 and Dysuria R30.0 [place] [address] 41070- 2754 May, Bipolar disorder, current episode mixed, mild F31.61 ; Personality disorder F60.9 and Homeless Z59.[address] 70897- 3463 May, Type 2 diabetes mellitus without complication, without long- term current use of insulin E11.9 [place] [address] 99826- 5932 May, History of hypertension Z86.79 [place] [address]- [address] May, [address] 08654- 5849 May, Type 2 diabetes mellitus without complication, without long- term current use of insulin E11.9 ; Elevated LDL cholesterol level E78.00 ; Low serum HDL R74.8 and Encounter for immunization Z23 [address] 41098- 1877 Apr, Encounter to establish care Z76.89 ; Abnormal CBC R79.89 ; History of hypertension Z86.79 ; Overweight (BMI 25.0-29.9) E66.3 ; Family history of diabetes insipidus Z83.49 ; Sore throat J02.9 and Tonsillitis with exudate J03.90 [place] [id number] [place] [address] 77319- 7573 Apr, Bipolar disorder, current episode mixed, mild F31.61 [place] [address] 43970- 4614 Mar, [address] 29947- 7976 Mar, Bipolar disorder, current episode mixed, mild F31.61 [place] [address] 58249- 9336 Mar, [facility] [address] [address]- 7266 Mar, Bipolar disorder in remission F31.70 [facility] [address] [address] 2546 Jan, [facility] [address] [address]- 6396 Jan, [facility] [address] [address]- 2678 Oct, Generalized anxiety disorder F41.1 and Bipolar disorder in remission F31.70 [facility] [address] [address]- 6146 Oct, [facility] [address] [address]- 6596 Oct, [facility] [address] [address]- 6465 Oct, [facility] [address] [address]- 3206 Oct, [facility] [address] [address]- 6226 Jul, [facility] [address] [address]- 2726 Jun, [facility] [address] [address]- 7716 May, 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 and Generalized anxiety disorder F41.1 [facility] [address] [address]- 6936 Jan, [facility] [address] [id number] [address] 2546 Jan, [facility] [address] [address]- 5650 23 Tyson, 2016 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 and Generalized anxiety disorder F41.1 [facility] [id number] [place] [address] 67571- 5912 Sep, [facility] [id number] [place] [address] 18630- 3186 Sep, [facility] [id number] [place] [address] 96060- 5980 Jul, 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 and Generalized anxiety disorder F41.1 [facility] [id number] [place] [address] 94718- 0317 Jul, Otalgia of right ear H92.01 [facility] [id number] [place] [address] 61766- 6743 Jun, [facility] [id number] [place] [address] 54127- 7127 Mar, [facility] [id number] [place] [address] 16140- 7632 Jan, [facility] [id number] [place] [address] 36236- 3751 Jan, [facility] [id number] [place] [address] 95583- 4834 Jan, Bipolar 1 disorder, mixed, moderate 296.62 and SHERRY ( generalized anxiety disorder) 300.02 [facility] [address] [place] [address] 46885- 1944 Jan, [facility] [id number] [place] [address] 03023- 4242 Nov, [facility] [id number] [place] [address] 51374- 9817 13 Nov, 2014 [facility] [id number] [place] [address] 53370- 7790 Oct, [facility] [address] [id number] [address]- 6601 Oct, [facility] [place] [facility] [address] [id number] [place] [address]- 7239 Mar, [facility] [place] [facility] [address] [id number] [place] Mar, [facility] [place] [facility] [address] [id number] [place] [address]- 6733 Jan, [facility] [place] [facility] [address] [id number] [place] [address]- 0776 Jan, [facility] [place] [facility] [address] [id number] [place] [address]- 7861 December, [facility] [place] [facility] [address] [id number] [place] [address]- 6945 December, [facility] [place] [facility] [address] [id number] [place] [address]- 2566 December, [facility] [place] [facility] [address] [id number] [place] [address]- 1708 December, [facility] [place] [facility] [address] [id number] [place] [address]- 8281 December, [facility] [place] [facility] [address] [id number] [place] [address]- 6002 December, [facility] [place] [facility] [address] [id number] [place] [address]- 9953 December, [facility] [place] [facility] [address] [id number] [place] [address]- 8858 December, [facility] [place] [facility] [address] [id number] [place] [address]- 0100 Nov, [facility] [place] [facility] [address] [id number] [place] [address]- 7270 Nov, [facility] [place] [facility] [address] [id number] [place] [address]- 8372 Oct, [facility] [place] [facility] [address] [id number] [place] [address]- 4124 10 Oct, 2013 [facility] [place] [facility] [address] [id number] [place] [address]- 7220 Oct, [facility] [place] [facility] [address] [id number] [place] [address]- 9449 Oct, [facility] [place] [facility] [address] [id number] [place] [address]- 3193 Oct, [facility] [place] [facility] [address] [id number] [place] [address]- 2022 Sep, [facility] [place] [facility] [address] [id number] [place] [address]- 7800 Sep, [facility] [place] [facility] [address] [id number] [place] [address]- 4044 Sep, [facility] [place] [facility] [address] [id number] [place] [address]- 3947 Sep, [facility] [place] [facility] [address] [id number] [place] [address]- 1146 Aug, [facility] [place] [facility] [address] [id number] [place] [address]- 7749 Aug, [facility] [place] [facility] [address] [id number] [place] [address]- 0773 Aug, [facility] [place] [facility] [address] [id number] [place] [address]- 7044 14 Aug, 2013 [facility] [place] [facility] [address] [id number] [place] [address]- 8358 Aug, [facility] [place] [facility] [address] [id number] [place] [address]- 8302 Jul, [facility] [place] [facility] [address] [id number] [place] [address]- 5225 16 Jul, 2013 [facility] [place] [facility] [address] [id number] [place] [address]- 0981 Jul, [facility] [place] [facility] [address] [id number] [place] [address]- 9104 Jul, [facility] [place] [facility] [address] [id number] [place] [address]- 3863 Jun, [facility] [place] [facility] [address] [id number] [place] [address]- 0918 Jun, [facility] [place] [facility] [address] [id number] [place] [address]- 1365 May, [facility] [place] [facility] [address] [id number] [place] [address]- 6934 May, [facility] [place] [facility] [address] [id number] [place] 8975 May, [facility] [place] [facility] [address] [id number] [place] [address]- 6983 May, [facility] [place] [facility] [address] [id number] [place] [address]- 3650 May, [facility] [place] [facility] [address] [facility] [id number] [place] [address]- 1023 May, [facility] [place] [facility] [address] [facility] [id number] [place] [address]- 2960 May, [facility] [place] [facility] [address] [id number] [address]- 6568 May, [facility] [place] [facility] [address] [id number] [place] [address]- 9496 May, [facility] [place] [facility] [address] [id number] [place] [address]- 6806 Apr, [facility] [place] [facility] [address] [id number] [place] [address]- 9353 Apr, [facility] [place] [facility] [address] [facility] [id number] [place] [address]- 7971 Mar, [facility] [place] [facility] [address] [id number] [place] [address]- 4405 Mar, [facility] [place] [facility] [address] [id number] [place] [address]- 2027 Mar, [facility] [place] [facility] [address] [id number] [place] [address]- 4254 Mar, [facility] [place] [facility] [address] [id number] [place] [address]- 8600 Mar, [facility] [place] [facility] [address] [id number] [place] [address]- 1491 Mar, [facility] [place] [facility] [address] [id number] [place] [address]- 5491 Mar, [facility] [place] [facility] [address] [id number] [place] [address]- 3212 Mar, [facility] [place] [facility] [address] [id number] [place] [address]- 2148 Mar, [facility] [place] [facility] [address] [id number] [place] [address]- 6372 Mar, [facility] [place] [facility] [address] [id number] [place] [address]- 1785 Mar, [facility] [place] [facility] [address] [id number] [place] [address]- 7649 Jan, [facility] [place] [facility] [address] [id number] [place] [address]- 4532 Jan, [facility] [place] [facility] [address] [id number] [place] [address]- 2977 Jan, [facility] [place] [facility] [address] [id number] [place] [address]- 4440 December, [facility] [place] [facility] [address] [id number] [place] [address]- 6280 December, [facility] [place] [facility] [address] [id number] [place] [address]- 0963 23 Nov, 2012 [facility] [address] [id number] [place] [address]- 8330 Nov, [facility] [place] [facility] [address] [id number] [place] [address]- 9566 28 Oct, 2012 [facility] [place] [facility] [address] [id number] [place] [address]- 8079 26 Oct, 2012 [facility] [place] [facility] [address] [id number] [place] [address]- 4945 21 Oct, 2012 [facility] [address] [id number] [place] [address]- 9874 20 Oct, 2012 [facility] [place] [facility] [address] [id number] [place] [address]- 6784 19 Oct, 2012 [facility] [place] [facility] [address] [id number] [place] [address]- 7726 19 Oct, 2012 [facility] [place] [facility] [address] [id number] [place] [address]- 0419 17 Oct, 2012 [facility] [place] [facility] [address] [id number] [place] [address]- 6285 16 Oct, 2012 [facility] [place] [facility] [address] [id number] [place] [address]- 8564 14 Oct, 2012 [facility] [place] [facility] [address] [id number] [place] [address]- 9742 13 Oct, 2012 [facility] [place] [facility] [address] [id number] [address]- 0423 05 Oct, 2012 [facility] [place] [facility] [address] [id number] [place] [address]- 5258 14 Sep, 2012 [facility] [place] [facility] [address] [id number] [place] [address]- 1533 08 Sep, 2012 [facility] [place] [facility] [address] [id number] [place] [address]- 4011 21 Aug, 2012 [facility] [place] [facility] [address] [id number] [place] [address]- 1739 16 Aug, 2012 [facility] [address] [id number] [place] [address]- 1438 12 Aug, 2012 [facility] [address] [id number] [place] [address]- 0866 09 Aug, 2012 [facility] [address] [id number] [place] [address]- 0370 07 Aug, 2012 [facility] [address] [id number] [place] [address]- 3739 Jul, [facility] [address] [id number] [place] [address]- 1456 Jul, [facility] [address] [id number] [place] [address]- 2988 Jul, [facility] [address] [id number] [place] [address]- 8401 Jul, [facility] [address] [id number] [place] [address]- 7556 18 Jul, 2012 [facility] [address] [id number] [place] [address]- 9144 17 Jul, 2012 [facility] [address] [id number] [place] [address] 14 Jul, 2012 [facility] [address] [id number] [place] [address] 14 Jul, 2012 [facility] [address] [id number] [place] [address] 06 Jul, 2012 [facility] [place] [facility] [address] [id number] [place] [address] 06 Jul, 2012 [facility] [place] [facility] [address] [id number] [place] [address] 05 Jul, 2012 [facility] [address] [id number] [place] [address] Jul, [facility] [place] [facility] [address] [id number] [place] [address] Jul, [facility] [place] [facility] [address] [id number] [place] [address] Jul, [facility] [place] [facility] [address] [id number] [place] [address] Jul, [facility] [place] [facility] [address] [id number] [place] [address] Jul, [facility] [place] [facility] [address] [id number] [place] [address] Jun, [facility] [place] [facility] [address] [id number] [place] [address] Jun, [facility] [place] [facility] [address] [id number] [place] [address] Jun, [facility] [place] [facility] [address] [id number] [place] [address] Jun, [facility] [place] [facility] [address] [id number] [place] [address] Jun, [facility] [place] [facility] [address] [id number] [place] [address] Jun, [facility] [place] [facility] [address] [id number] [place] [address] Jun, [facility] [place] [facility] [address] [id number] [place] [address] Jun, [facility] [place] [facility] [address] [id number] [place] [address] Jun, [facility] [place] [facility] [address] [id number] [place] [address] May, [facility] [place] [facility] [address] [id number] [place] [address] Mar, [facility] [place] [facility] [address] [id number] [place] [address] Mar, [facility] [place] [facility] [address] [id number] [place] [address] Mar, [facility] [place] [facility] [address] [id number] [place] [address] Mar, [facility] [place] [facility] [address] [id number] [place] [address] Jan, [facility] [place] [facility] [address] [id number] [place] [address] Jan, [facility] [place] [facility] [address] [id number] [place] [address] Jan, [facility] [place] [facility] [address] [id number] [place] [address] Jan, [facility] [place] [facility] [address] [id number] [place] [address] Jan, [facility] [place] [facility] [address] [id number] [place] [address] Jan, [facility] [place] [facility] [address] [id number] [place] [address] December, [facility] [place] [facility] [address] [id number] [place] [address] December, [facility] [place] [facility] [address] [id number] [place] [address] Nov, [facility] [place] [facility] [address] [id number] [place] [address] Nov, [facility] [place] [facility] [address] [id number] [place] [address] Oct, [facility] [place] [facility] [address] [id number] [place] [address] Oct, [facility] [place] [facility] [address] [id number] [place] [address] Oct, [facility] [place] [facility] [address] [id number] [place] [address] Oct, [facility] [place] [facility] [address] [id number] [place] [address] Aug, [facility] [place] [facility] [address] [id number] [place] [address] Aug, [facility] [place] [facility] [address] [id number] [place] [address] Jun, [facility] [place] [facility] [address] [id number] [place] [address] Jun, [facility] [place] [facility] [address] [id number] [place] [address] Jun, [facility] [place] [facility] [address] [id number] [place] [address] Jun, [facility] [place] [facility] [address] [id number] [place] [address] Jun, [facility] [place] [facility] [address] [id number] [place] [address] May, [facility] [place] [facility] [address] [id number] [place] [address] May, [facility] [place] [facility] [address] [id number] [place] [address] May, [facility] [place] [facility] [address] [id number] [place] [address] May, [facility] [place] [facility] [address] [id number] [place] [address] May, [facility] [place] [facility] [address] [id number] [place] [address] May, [facility] [place] [facility] [address] [id number] [place] [address] May, [facility] [place] [facility] [address] [id number] [place] [address] Mar, [facility] [id number] [address] May, [facility] [id number] [address] Jan, [facility] [id number] [address] Jul, [facility] [address] [facility] [id number] [place] [address] Jun, [facility] [id number] [address] Jun, [facility] [id number] [place] [address] Jun, [facility] [id number] [address] Jun, [facility] [address] [id number] [place] [address] Jun, [facility] [id number] [address] May, [facility] [id number] [address] May, [facility] [id number] [address] May, [facility] [id number] [address] Jul, IMMUNIZATIONS No Known Immunizations SOCIAL HISTORY Never Assessed REASON FOR VISIT LUCIA muniz/[place] [facility] PLAN OF CARE Activity Details Follow Up 3 Months, prn Reason: VITAL SIGNS Height 62 in 2018-01-19 Weight 170.5 lbs 2018-01-19 Heart Rate 78 bpm 2018-01-19 Respiratory Rate 18 2018-01-19 BMI 31.18 kg/m2 2018-01-19 Blood pressure systolic 122 mmHg 2018-01-19 Blood pressure diastolic 76 mmHg 2018-01-19 MEDICATIONS Medication Instructions Dosage Frequency Start Date End Date Duration Status Abilify 10 MG Orally Once a day at bedtime 1 tablet Active Trazodone HCl 100 MG Orally Once a day 1 tablet or 1.5 tabs or 2 tabs 24h Jan, 30 day(s) Active Glucocard Expression Test 1 subcutaneously 2 times a day test 2 times per day 12h May, 12 months Active Amitriptyline HCl 25 MG Orally at bedtime 1 tablet Nov, 30 day(s) Not-Taking Azelastine HCl 0.05 % Ophthalmic Twice a day 1 drop into affected eye 12h Oct, Active Glimepiride 1 MG Orally Once a day 1 tablet with breakfast or the first main meal of the day 24h May, 90 days Active Atorvastatin Calcium 10 mg Orally Once a day 1 tablet 24h May, 90 days Active Aspir-81 81 MG Orally Once a day 1 tablet 24h 26 Apr, 2017 Jan, 90 days Active Lisinopril 5 MG Orally Once a day 1 tablet 24h 90 days Active Tramadol HCl 50 mg Orally 2 times a day 1 tablet as needed 12h Nov, Not-Taking RESULTS No Results PROCEDURES No Known [...]
--- OUTSIDE RECORDS SUMMARY | 2018-04-18 15:29 | XMS REPORT ---
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 Leader Name Role Phone PINO REILLYTA Unavailable PROBLEMS Type Condition ICD9-CM Code QTA65-QU Code Onset Dates Condition Status SNOMED Code Problem History of hypertension Z86.79 Active 152379180 Problem Elevated LDL cholesterol level E78.00 Active 230686584 Problem Personality disorder F60.9 Active 24261863 Problem Other chronic pain G89.29 Active 93751078 Problem Hypoglycemia E16.2 Active 044284663 Problem Acute seasonal allergic rhinitis, unspecified trigger J30.2 Active 878565485 Problem Type 2 diabetes mellitus without complication, without long-term current use of insulin E11.9 Active 164945951 Problem Primary insomnia F51.01 Active 8521436 Problem Acute non intractable tension-type headache G44.209 Active 077223605 Problem Generalized anxiety disorder F41.1 Active 67120223 Problem Bipolar disorder in remission F31.70 Active 62854888 Problem Family history of diabetes insipidus Z83.49 Active 875924624 Problem Abnormal CBC R79.89 Active 181348319 Problem Bipolar disorder, current episode mixed, mild F31.61 Active 810865939 Problem History of diabetes mellitus Z86.39 Active 455105823 Problem Overweight (BMI 25.0-29.9) E66.3 Active 964338442 Problem Sore throat J02.9 Active 465443106 ALLERGIES Substance Reaction Event Type Date Status MetFORMIN HCl ER nausea Drug Allergy Jan, Active Zyprexa rash Drug Allergy Jan, Active Cipro rash Drug Allergy Jan, Active ENCOUNTERS Encounter Location Date Diagnosis [facility] [address] [facility] [id number] [address] Jun, [facility] [address] [facility] [id number] [address] Apr, [place] [id number] [place] [address] 70665- 9320 Mar, [place] [address] 43[address]- 4493 Mar, Plantar fascia syndrome M72.2 [place] [address] 21565- 5039 Jan, UTI symptoms R39.9 and Epigastric pain R10.13 [place] [address] 39993- 1150 Jan, Posterior right knee pain M25.561 [place] [address] 47125- 9195 Jan, Posterior right knee pain M25.561 [place] [address] 11276- 0878 Jan, Scabies B86 [place] [address] 41857- 2990 Jan, Bipolar disorder, current episode mixed, mild F31.61 and Personality disorder F60.9 [place] [address] 23235- 0260 Jan, Cyst of ovary, unspecified laterality N83.209 [place] [id number] [place] [address] 03359- 4252 December, Cyst of ovary, unspecified laterality N83.209 [place] [id number] [place] [address] 66043- 3973 December, [place] [address] 33887- 3004 December, Dysuria R30.0 [place] [id number] [place] [address] 74905- 0711 December, [place] [address] 71638- 2753 Nov, Bipolar disorder, current episode mixed, mild F31.61 and Personality disorder F60.9 [place] [id number] [place] [address] 12464- 2140 Nov, Elevated LDL cholesterol level E78.00 and Type 2 diabetes mellitus without complication, without long-term current use of insulin E11.9 [place] [id number] [place] [address] 41923- 2173 Nov, Elevated LDL cholesterol level E78.00 and Type 2 diabetes mellitus without complication, without long-term current use of insulin E11.9 [place] [id number] [place] [address] 83362- 0750 Nov, Other chronic pain G89.29 and Pain in left leg M79.605 [place] [address] 18612- 8193 Nov, Acute pain of left knee M25.562 ; Syncope, unspecified syncope type R55 and Hypoglycemia E16.2 [place] [id number] [place] [address] 81305- 2930 Oct, Syncope, unspecified syncope type R55 [place] [address] 19421- 0685 Oct, Bipolar disorder, current episode mixed, mild F31.61 and Personality disorder F60.9 [place] [id number] [place] [address] 35034- 4388 Oct, Lump of right breast N63.10 [place] [id number] [place] [address] 13967- 9829 Oct, Generalized anxiety disorder F41.1 [place] [address] 78737- 4747 Oct, Generalized anxiety disorder F41.1 ; Bipolar disorder in remission F31.70 ; Bipolar disorder, current episode mixed, mild F31.61 and Primary insomnia F51.01 [place] [address] [place] [address]- 9394 20 Oct, 2017 Primary insomnia F51.01 and Lump of right breast N63.10 [place] [address] 08003- 1885 16 Oct, 2017 Enteritis K52.9 [facility] [address] 9[address] -8533 14 Oct, 2017 Allergic conjunctivitis of both eyes H10.13 and Acute non intractable tension-type headache G44.209 [facility] [address] 91758- 5591 14 Oct, 2017 [place] [address] 72007- 5786 Oct, Bipolar disorder, current episode mixed, mild F31.61 [place] [address] 47519- 9658 22 Sep, 2017 Right flank pain R10.9 and Thoracic spine pain M54.6 [place] [address] 39475- 7489 16 Sep, 2017 Generalized anxiety disorder F41.1 and Bipolar disorder, current episode mixed, mild F31.61 [place] [id number] [place] [address] 73388- 4541 14 Sep, 2017 [place] [address] 29545- 1334 14 Sep, 2017 Generalized anxiety disorder F41.1 ; Bipolar disorder in remission F31.70 and Personality disorder F60.9 [place] [address] 90903- 2858 12 Sep, 2017 Spasm of thoracic back muscle M62.830 ; Type 2 diabetes mellitus without complication, without long-term current use of insulin E11.9 and Generalized anxiety disorder F41.1 [place] [id number] [place] [address] 49137- 5713 12 Sep, 2017 Bipolar disorder, current episode mixed, mild F31.61 and Personality disorder F60.9 [place] [id number] [place] [address] 50736- 7442 Aug, [place] [id number] [place] [address] 34881- 2867 Aug, Bipolar disorder, current episode mixed, mild F31.61 and Personality disorder F60.9 [place] [address] 88378- 0190 05 Aug, 2017 Type 2 diabetes mellitus without complication, without long- term current use of insulin E11.9 ; Generalized anxiety disorder F41.1 ; Bipolar disorder in remission F31.70 and Overweight (BMI 25.0-29.9) E66.3 [place] [id number] [place] [address] 09372- 6292 04 Aug, 2017 Type 2 diabetes mellitus without complication, without long- term current use of insulin E11.9 ; Elevated LDL cholesterol level E78.00 and Bipolar disorder, current episode mixed, mild F31.61 [facility] [id number] [place] [address] 71347 -9089 Jul, Vaginal discharge N89.8 ; Skin irritation R23.8 and Dysuria R30.0 [facility] [id number] [place] [address] 02371 -4162 Jul, Acute seasonal allergic rhinitis, unspecified trigger J30.2 and Chest pain, unspecified type R07.9 [place] [id number] [place] [address] 57464- 0147 Jun, Bipolar disorder, current episode mixed, mild F31.61 [place] [id number] [place] [address] 64731- 2941 Jun, [place] [id number] [place] [address] 70688- 0659 Jun, Bipolar disorder, current episode mixed, mild F31.61 and Personality disorder F60.9 [place] [address] [place] [address]- 4444 Jun, [place] [address] 92963- 8845 Jun, Type 2 diabetes mellitus without complication, without long- term current use of insulin E11.9 and Dysuria R30.0 [place] [address] 35463- 8391 May, Bipolar disorder, current episode mixed, mild F31.61 ; Personality disorder F60.9 and Homeless Z59.0 [place] [address] 66480- 4277 May, Type 2 diabetes mellitus without complication, without long- term current use of insulin E11.9 [place] [address] 88374- 0579 May, History of hypertension Z86.79 [place] [address] 95054- 9071 May, [place] [address] 45979- 7471 May, Type 2 diabetes mellitus without complication, without long- term current use of insulin E11.9 ; Elevated LDL cholesterol level E78.00 ; Low serum HDL R74.8 and Encounter for immunization Z23 [address] [address]- 8548 Apr, Encounter to establish care Z76.89 ; Abnormal CBC R79.89 ; History of hypertension Z86.79 ; Overweight (BMI 25.0-29.9) E66.3 ; Family history of diabetes insipidus Z83.49 ; Sore throat J02.9 and Tonsillitis with exudate J03.90 [place] [id number] [place] [address] 16236- 1167 Apr, Bipolar disorder, current episode mixed, mild F31.61 [place] [address] 40668- 8951 Mar, [facility] [address] [address]- 9060 Mar, Bipolar disorder, current episode mixed, mild F31.61 [facility] [address] [place] [id number] [place] [address]- 3656 Mar, [facility] [address] [place] [address]- 6114 Mar, Bipolar disorder in remission F31.70 [facility] [address] [id number] [place] [address]- 0426 Jan, [facility] [address] [place] [address]- 2846 Jan, [facility] [address] [place] [address]- 5164 Oct, Generalized anxiety disorder F41.1 and Bipolar disorder in remission F31.70 [facility] [address] [place] [address]- 3538 Oct, [facility] [address] [place] [address]- 2961 Oct, [facility] [address] [place] [address]- 4509 Oct, [facility] [address] [address]- 2966 Oct, [facility] [address] [address]- 5082 Jul, [facility] [address] 1696 Jun, [facility] [id number] 3899 May, 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 and Generalized anxiety disorder F41.1 [facility] [address] 6566 Jan, [facility] [address] [address]- 2556 Jan, [facility] [id number] [place] [address] 939447- 9448 Jan, 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 and Generalized anxiety disorder F41.1 [facility] [id number] [place] [address] 499987- 4836 Sep, [facility] [id number] [place] [address] 874973- 8712 Sep, [facility] [id number] [place] [address] 430887- 8923 Jul, 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 and Generalized anxiety disorder F41.1 [facility] [id number] [place] [address] 27452- 6930 Jul, Otalgia of right ear H92.01 [facility] [id number] [place] [address] 76296- 8565 Jun, [facility] [id number] [place] [address] 426387- 0455 Mar, [facility] [id number] [place] [address] 84557- 0521 Jan, [facility] [id number] [place] [address] 25939- 5809 Jan, [facility] [id number] [place] [address] 06350- 7780 Jan, Bipolar 1 disorder, mixed, moderate 296.62 and SHERRY ( generalized anxiety disorder) 300.02 [facility] [id number] [place] [address] 17082- 1150 Jan, [facility] [address] 3817 Nov, [facility] [address] [place] [address] [place] [address]- 1998 Nov, [facility] [place] [facility] [address] [id number] [place] [address]- 3881 Oct, [facility] [place] [facility] [address] [id number] [place] [address]- 8488 Oct, [facility] [place] [facility] [address] [id number] [place] [address]- 1239 Mar, [facility] [place] [facility] [address] [id number] [place] [address]- 6553 Mar, [facility] [place] [facility] [address] [id number] [place] [address]- 5485 Jan, [facility] [place] [facility] [address] [id number] [place] [address]- 9579 Jan, [facility] [place] [facility] [address] [id number] [place] [address]- 0969 December, [facility] [place] [facility] [address] [id number] [place] [address]- 2972 December, [facility] [place] [facility] [address] [id number] [place] [address]- 4362 December, [facility] [place] [facility] [address] [id number] [place] [address]- 4580 December, [facility] [place] [facility] [address] [id number] [place] [address]- 3254 December, [facility] [place] [facility] [address] [id number] [place] [address]- 4165 December, [facility] [place] [facility] [address] [id number] [place] [address]- 3938 December, [facility] [place] [facility] [address] [id number] [place] [address]- 9725 December, [facility] [place] [facility] [address] [id number] [place] [address]- 8528 Nov, [facility] [place] [facility] [address] [id number] [place] [address]- 5088 15 Nov, 2013 [facility] [place] [facility] [address] [id number] [place] [address]- 7718 Oct, [facility] [place] [facility] [address] [id number] [place] [address]- 5843 Oct, [facility] [place] [facility] [address] [id number] [place] [address]- 1025 Oct, [facility] [place] [facility] [address] [id number] [place] [address]- 0600 Oct, [facility] [place] [facility] [address] [id number] [place] [address]- 7093 Oct, [facility] [place] [facility] [address] [id number] [place] [address]- 1611 Sep, [facility] [place] [facility] [address] [id number] [place] [address]- 3735 Sep, [facility] [place] [facility] [address] [id number] [place] [address]- 6150 Sep, [facility] [place] [facility] [address] [id number] [place] [address]- 5837 Sep, [facility] [place] [facility] [address] [id number] [place] [address]- 2830 Aug, [facility] [place] [facility] [address] [id number] [place] [address]- 5796 Aug, [facility] [place] [facility] [address] [id number] [place] [address]- 8094 Aug, [facility] [place] [facility] [address] [id number] [place] [address]- 2482 14 Aug, 2013 [facility] [place] [facility] [address] [id number] [place] [address]- 6589 13 Aug, 2013 [facility] [place] [facility] [address] [id number] [place] [address]- 9843 16 Jul, 2013 [facility] [place] [facility] [address] [id number] [place] [address]- 9274 16 Jul, 2013 [facility] [place] [facility] [address] [id number] [address]- 2722 Jul, [facility] [place] [facility] [address] [id number] [place] [address]- 9737 Jul, [facility] [place] [facility] [address] [id number] [place] [address]- 4358 Jun, [facility] [place] [facility] [address] [id number] [place] [address]- 1464 Jun, [facility] [place] [facility] [address] [id number] [place] [address]- 8739 May, [facility] [place] [facility] [address] [id number], [place] [address]- 1803 May, [facility] [place] [facility] [address] [id number] [address]- 9739 May, [facility] [place] [facility] [address] [id number] [place] [address]- 5745 18 May, 2013 [facility] [place] [facility] [address] [facility] [id number] [address]- 9552 May, [facility] [place] [facility] [address] [id number], [place] [address]- 1083 15 May, 2013 [facility] [place] [facility] [address] [id number], [place] [address]- 2122 09 May, 2013 [facility] [place] [facility] [address] [id number], [place] [address]- 4035 May, [facility] [place] [facility] [address] [facility] [id number], [place] [address]- 4567 May, [facility] [place] [facility] [address] [id number], [place] [address]- 5358 Apr, [facility] [place] [facility] [address] [id number] [place] [address]- 2539 Apr, [facility] [place] [facility] [address] [id number] [place] [address]- 6419 Mar, [facility] [place] [facility] [address] [id number] [place] [address] 2540 Mar, [facility] [place] [facility] [address] [id number] [place] [address]- 4418 Mar, [facility] [place] [facility] [address] [id number] [place] [address]- 9618 Mar, [facility] [place] [facility] [address] [id number] [place] [address]- 2306 Mar, [facility] [place] [facility] [address] [id number] [place] [address]- 8158 Mar, [facility] [place] [facility] [address] [id number] [place] [address]- 0083 Mar, [facility] [place] [facility] [address] [id number] [place] [address]- 1286 Mar, [facility] [place] [facility] [address] [id number] [place] [address]- 1948 Mar, [facility] [place] [facility] [address] [id number] [place] [address]- 7596 Mar, [facility] [place] [facility] [address] [id number] [place] [address]- 5801 Mar, [facility] [place] [facility] [address] [id number] [place] [address]- 5753 Jan, [facility] [place] [facility] [address] [id number] [place] [address]- 0136 Jan, [facility] [place] [facility] [address] [id number] [place] [address]- 7068 Jan, [facility] [place] [facility] [address] [id number] [place] [address]- 6462 December, [facility] [address] [id number] [place] [address]- 5554 December, [facility] [address] [id number] [place] [address]- 7201 Nov, [facility] [address] [id number] [place] [address]- 5715 Nov, [facility] [address] [id number] [place] [address]- 9209 Oct, [facility] [address] [id number] [place] [address]- 3725 26 Oct, 2012 [facility] [address] [id number] [place] [address]- 5026 21 Oct, 2012 [facility] [address] [id number] [place] [address]- 3889 20 Oct, 2012 [facility] [place] [facility] [address] [id number] [place] [address]- 7311 19 Oct, 2012 [facility] [address] [id number] [place] [address]- 4915 19 Oct, 2012 [facility] [place] [facility] [address] [id number] [place] [address]- 8338 17 Oct, 2012 [facility] [address] [id number] [place] [address]- 9751 16 Oct, 2012 [facility] [place] [facility] [address] [id number], [place] [address]- 6720 14 Oct, 2012 [facility] [place] [facility] [address] [id number] [place] [address]- 2048 13 Oct, 2012 [facility] [place] [facility] [address] [id number] [place] [address]- 5199 05 Oct, 2012 [facility] [place] [facility] [address] [id number] [place] [address]- 6553 14 Sep, 2012 [facility] [place] [facility] [address] [id number] [place] [address]- 3884 08 Sep, 2012 [facility] [address] [id number] [place] [address]- 5936 Aug, [facility] [address] [id number] [place] [address]- 3446 16 Aug, 2012 [facility] [address] [id number] [place] [address]- 6630 Aug, [facility] [address] [id number] [place] [address]- 0249 Aug, [facility] [address] [id number] [place] [address]- 0755 Aug, [facility] [address] [id number] [place] [address] Jul, [facility] [address] [id number] [place] [address] Jul, [facility] [address] [id number] [place] [address] Jul, [facility] [address] [id number] [place] [address] Jul, [facility] [address] [id number] [place] [address] 18 Jul, 2012 [facility] [address] [id number] [place] [address] 17 Jul, 2012 [facility] [address] [id number] [place] [address] 14 Jul, 2012 [facility] [address] [id number] [place] [address] 14 Jul, 2012 [facility] [address] [id number] [place] [address] 06 Jul, 2012 [facility] [address] [id number] [place] [address] Jul, [facility] [place] [facility] [address] [id number] [place] [address] Jul, [facility] [place] [facility] [address] [id number] [place] [address] Jul, [facility] [place] [facility] [address] [id number] [place] [address] Jul, [facility] [place] [facility] [address] [id number] [place] [address] Jul, [facility] [place] [facility] [address] [id number] [place] [address] Jul, [facility] [place] [facility] [address] [id number] [place] [address] Jul, [facility] [place] [facility] [address] [id number] [place] [address] Jun, [facility] [place] [facility] [address] [id number], [place] [address] Jun, [facility] [place] [facility] [address] [id number] [place] [address] Jun, [facility] [place] [facility] [address] [facility] [id number], [place] [address] Jun, [facility] [place] [facility] [address] [facility] [id number], [place] [address] Jun, [facility] [place] [facility] [address] [id number], [place] [address] Jun, [facility] [place] [facility] [address] [id number], [place] [address] Jun, [facility] [place] [facility] [address] [id number], [place] [address] Jun, [facility] [place] [facility] [address] [facility] [id number], [place] [address] 13 Jun, 2012 [facility] [place] [facility] [address] [id number], [place] [address] May, [facility] [place] [facility] [address] [id number] [place] [address] Mar, [facility] [place] [facility] [address] [id number] [place] [address] Mar, [facility] [place] [facility] [address] [id number] [place] [address] Mar, [facility] [place] [facility] [address] [id number] [place] [address] Mar, [facility] [place] [facility] [address] [id number] [place] [address] Jan, [facility] [place] [facility] [address] [id number] [place] [address] Jan, [facility] [place] [facility] [address] [place] [id number] [place] [address] Jan, [facility] [place] [facility] [address] [address] [id number] [place] [address] Jan, [facility] [place] [facility] [address] [facility] [id number] [place] [address] Jan, [facility] [place] [facility] [address] [facility] [id number] [place] [address] Jan, [facility] [place] [facility] [address] [id number] [place] [address] December, [facility] [place] [facility] [address] [id number] [place] [address] December, [facility] [place] [facility] [address] [id number] [place] [address] Nov, [facility] [place] [facility] [address] [id number] [place] [address] Nov, [facility] [place] [facility] [address] [facility] [id number] [place] [address] Oct, [facility] [place] [facility] [address] [id number] [place] [address] Oct, [facility] [place] [facility] [address] [id number] [place] [address] Oct, [facility] [place] [facility] [address] [id number] [place] [address] Oct, [facility] [place] [facility] [address] [id number] [place] [address] Aug, [facility] [place] [facility] [address] [id number] [place] [address] Aug, [facility] [place] [facility] [address] [id number] [place] [address] Jun, [facility] [place] [facility] [address] [id number] [place] [address] Jun, [facility] [place] [facility] [address] [id number] [place] [address] Jun, [facility] [place] [facility] [address] [id number] [place] [address] Jun, [facility] [place] [facility] [address] [id number] [place] [address] Jun, [facility] [place] [facility] [address] [id number] [place] [address] May, [facility] [place] [facility] [address] [id number] [place] [address] May, [facility] [place] [facility] [address] [id number] [place] [address] May, [facility] [place] [facility] [address] [id number] [place] [address] May, [facility] [place] [facility] [address] [id number] [place] [address] May, [facility] [place] [facility] [address] [id number] [place] [address] May, [facility] [address] [facility] [id number], [place] [address] 14 May, 2011 [facility] [address] [facility] [id number], [place] [address] Mar, [facility] [address] [facility] [id number] [address] 11 May, 2010 [facility] [address] [facility] [id number] [place] [address] Jan, [facility] [address] [facility] [id number] [place] [address] Jul, [facility] [id number] [place] [address] Jun, [facility] [id number] [place] [id number]- [address] Jun, [facility] [id number] [place] [address] Jun, [facility] [id number] [address] Jun, [facility] [id number] [address] Jun, [facility] [id number] [address] May, [facility] [id number] [address] May, [facility] [address] [facility] [id number], [place] [address] May, [facility] [id number] [address] Jul, IMMUNIZATIONS No Known Immunizations SOCIAL HISTORY Never Assessed REASON FOR VISIT bug bite Pt has rash on trunk, legs and arms for 5 days thinks it might be bug bites YARON Higgins PLAN OF CARE Activity Details Follow Up 1-2 weeks if not better Reason:rash VITAL SIGNS Height 62 in 2018-01-26 Weight 172.4 lbs 2018-01-26 Temperature 97.8 degrees Fahrenheit 2018-01-26 Heart Rate 80 bpm 2018-01-26 Respiratory Rate 18 2018-01-26 BMI 31.53 kg/m2 2018-01-26 Blood pressure systolic 118 mmHg 2018-01-26 Blood pressure diastolic 72 mmHg 2018-01-26 MEDICATIONS Medication Instructions Dosage Frequency Start Date End Date Duration Status Atorvastatin Calcium 10 mg Orally Once a day 1 tablet 24h May, 90 days Active Glimepiride 1 MG Orally Once a day 1 tablet with breakfast or the first main meal of the day 24h May, 90 days Active Abilify 10 MG Orally Once a day at bedtime 1 tablet Active Permethrin 5 % Externally Once a day 1 application to affected area 24h Jan, 1 dose Active Azelastine HCl 0.05 % Ophthalmic Twice a day 1 drop into affected eye 12h Oct, Active Lisinopril 5 MG Orally Once a day 1 tablet 24h 90 days Active Trazodone HCl 100 MG Orally Once a day 1 tablet or 1.5 tabs or 2 tabs 24h Jan, 30 day(s) Active Glucocard Expression Test 1 subcutaneously 2 times a day test 2 times per day 12h May, 12 months Active RESULTS No Results PROCEDURES No Known [...]
--- OUTSIDE RECORDS SUMMARY | 2018-04-18 15:30 | XMS REPORT ---
Author Author WILKINSSREEKANTH Organization [facility] Address [address] [place] [address] Care Team Providers Care Obgyn Hospitalist Physician Name Role Phone SREEKANTH WILKINS Unavailable PROBLEMS Type Condition ICD9-CM Code MCF08-CK Code Onset Dates Condition Status SNOMED Code Problem History of hypertension Z86.79 Active 990247688 Problem Elevated LDL cholesterol level E78.00 Active 216826874 Problem Personality disorder F60.9 Active 88182805 Problem Other chronic pain G89.29 Active 16820394 Problem Hypoglycemia E16.2 Active 269182736 Problem Acute seasonal allergic rhinitis, unspecified trigger J30.2 Active 363165858 Problem Type 2 diabetes mellitus without complication, without long-term current use of insulin E11.9 Active 633679339 Problem Primary insomnia F51.01 Active 5626966 Problem Acute non intractable tension-type headache G44.209 Active 323989324 Problem Generalized anxiety disorder F41.1 Active 83804700 Problem Bipolar disorder in remission F31.70 Active 12380975 Problem Family history of diabetes insipidus Z83.49 Active 953146369 Problem Abnormal CBC R79.89 Active 598558686 Problem Bipolar disorder, current episode mixed, mild F31.61 Active 078843402 Problem History of diabetes mellitus Z86.39 Active 103379844 Problem Overweight (BMI 25.0-29.9) E66.3 Active 391257791 Problem Sore throat J02.9 Active 394126320 ALLERGIES No Information ENCOUNTERS Encounter Location Date Diagnosis [facility] [id number] [place] [address] 60096- 5969 Jan, UTI symptoms R39.9 and Epigastric pain R10.13 [facility] [id number] [place] [address] 45499- 8946 Jan, Posterior right knee pain M25.561 [facility] [id number] [place] [address] 91232- 6200 Jan, Posterior right knee pain M25.561 [facility] [id number] [place] [address] 91711- 9694 Jan, Scabies B86 [facility] [id number] [place] [address] 38963- 9667 Jan, Bipolar disorder, current episode mixed, mild F31.61 and Personality disorder F60.9 [facility] [address] 35804- 7704 Jan, Cyst of ovary, unspecified laterality N83.209 [facility] [address] [place] 368642- 7983 December, Cyst of ovary, unspecified laterality N83.209 [facility] [address] 96788- 9399 December, [facility] [address] 06674- 7467 December, Dysuria R30.0 [facility] [id number] [place] [address] 35440- 5841 December, [facility] [id number] [place] [address] 21770- 2113 Nov, Bipolar disorder, current episode mixed, mild F31.61 and Personality disorder F60.9 [facility] [id number] [place] [address] 49828- 6934 Nov, Elevated LDL cholesterol level E78.00 and Type 2 diabetes mellitus without complication, without long-term current use of insulin E11.9 [facility] [id number] [place] [address] 74386- 9340 Nov, Elevated LDL cholesterol level E78.00 and Type 2 diabetes mellitus without complication, without long-term current use of insulin E11.9 [facility] [id number] [place] [address] 76697- 3243 Nov, Other chronic pain G89.29 and Pain in left leg M79.605 [facility] [id number] [place] [address] 13065- 7431 02 Nov, 2017 Acute pain of left knee M25.562 ; Syncope, unspecified syncope type R55 and Hypoglycemia E16.2 [facility] [id number] [place] [address] 77294- 2637 30 Oct, 2017 Syncope, unspecified syncope type R55 [facility] [address] 32561- 2259 Oct, Bipolar disorder, current episode mixed, mild F31.61 and Personality disorder F60.9 [facility] [address] 15386- 6369 Oct, Lump of right breast N63.10 [facility] [address] 33598- 1942 Oct, Generalized anxiety disorder F41.1 [facility] [address] 21134- 5133 Oct, Generalized anxiety disorder F41.1 ; Bipolar disorder in remission F31.70 ; Bipolar disorder, current episode mixed, mild F31.61 and Primary insomnia F51.01 [facility] [id number] [place] [address] 38985- 8398 Oct, Primary insomnia F51.01 and Lump of right breast N63.10 [facility] [id number] [place] [address] 91457- 7320 16 Oct, 2017 Enteritis K52.9 [facility] [id number] [place] [address] 55102 -5089 14 Oct, 2017 Allergic conjunctivitis of both eyes H10.13 and Acute non intractable tension-type headache G44.209 [facility] [id number] [place] [address] 44328- 4648 14 Oct, 2017 [facility] [address] [place] [address]- 4459 Oct, Bipolar disorder, current episode mixed, mild F31.61 [facility] [id number] [place] [address] 67535- 0758 Sep, Right flank pain R10.9 and Thoracic spine pain M54.6 [facility] [id number] [place] [address] 23977- 9672 Sep, Generalized anxiety disorder F41.1 and Bipolar disorder, current episode mixed, mild F31.61 [facility] [id number] [place] [address] 84658- 0347 Sep, [facility] [id number] [place] [address] 82095- 0672 Sep, Generalized anxiety disorder F41.1 ; Bipolar disorder in remission F31.70 and Personality disorder F60.9 [facility] [id number] [place] [address] 64884- 8453 Sep, Spasm of thoracic back muscle M62.830 ; Type 2 diabetes mellitus without complication, without long-term current use of insulin E11.9 and Generalized anxiety disorder F41.1 [facility] [id number] [place] [address] 39112- 8664 Sep, Bipolar disorder, current episode mixed, mild F31.61 and Personality disorder F60.9 [facility] [id number] [place] [address] 85663- 2100 Aug, [facility] [id number] [place] [address] 39747- 0223 Aug, Bipolar disorder, current episode mixed, mild F31.61 and Personality disorder F60.9 [facility] [id number] [place] [address] 99764- 9262 05 Aug, 2017 Type 2 diabetes mellitus without complication, without long- term current use of insulin E11.9 ; Generalized anxiety disorder F41.1 ; Bipolar disorder in remission F31.70 and Overweight (BMI 25.0-29.9) E66.3 [facility] [address] 69758- 1604 Aug, Type 2 diabetes mellitus without complication, without long- term current use of insulin E11.9 ; Elevated LDL cholesterol level E78.00 and Bipolar disorder, current episode mixed, mild F31.61 [facility] [address] 69712 -9874 Jul, Vaginal discharge N89.8 ; Skin irritation R23.8 and Dysuria R30.0 [facility] [address] 51485 -8556 Jul, Acute seasonal allergic rhinitis, unspecified trigger J30.2 and Chest pain, unspecified type R07.9 [facility] [address] 39483- 8296 Jun, Bipolar disorder, current episode mixed, mild F31.61 [facility] [address] 16654- 6625 Jun, [facility] [address] 89120- 2771 Jun, Bipolar disorder, current episode mixed, mild F31.61 and Personality disorder F60.9 [facility] [address] 86387- 3655 Jun, [facility] [address] 24827- 7658 Jun, Type 2 diabetes mellitus without complication, without long- term current use of insulin E11.9 and Dysuria R30.0 [facility] [address] 63164- 3068 May, Bipolar disorder, current episode mixed, mild F31.61 ; Personality disorder F60.9 and Homeless Z59.0 [facility] [address] 02054- 6438 May, Type 2 diabetes mellitus without complication, without long- term current use of insulin E11.9 [facility] [id number] [place] [address] 10438- 4592 May, History of hypertension Z86.79 [facility] [id number] [place] [address] 18391- 7531 May, [facility] [id number] [place] [address] 92844- 1828 May, Type 2 diabetes mellitus without complication, without long- term current use of insulin E11.9 ; Elevated LDL cholesterol level E78.00 ; Low serum HDL R74.8 and Encounter for immunization Z23 [facility] [address] 01123- 3933 Apr, Encounter to establish care Z76.89 ; Abnormal CBC R79.89 ; History of hypertension Z86.79 ; Overweight (BMI 25.0-29.9) E66.3 ; Family history of diabetes insipidus Z83.49 ; Sore throat J02.9 and Tonsillitis with exudate J03.90 [facility] [id number] [place] [address] 91430- 8522 Apr, Bipolar disorder, current episode mixed, mild F31.61 [facility] [id number] [place] [address] 71782- 0169 Mar, [facility] [id number] [place] [address] 21757- 4244 Mar, Bipolar disorder, current episode mixed, mild F31.61 [facility] [id number] [place] [address] 71729- 1828 Mar, [facility] [id number] [place] [address] 36239- 2077 Mar, Bipolar disorder in remission F31.70 [facility] [id number] [place] [address] 72035- 4039 Jan, [facility] [address] 48536- 2256 Jan, [facility] [id number] 4139 Oct, Generalized anxiety disorder F41.1 and Bipolar disorder in remission F31.70 [facility] [id number] [place] [address]- 6396 Oct, [facility] [address] 4126 Oct, [facility] [address] [facility] [id number] [place] [address]- 3236 Oct, [facility] [address] [place] [address]- 7476 Oct, [facility] [address] [address]- 3778 Jul, [facility] [address] [address]- 6997 Jun, [facility] [id number] [address]- 0990 May, 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 and Generalized anxiety disorder F41.1 [facility] [address] [address]- 9939 Jan, [facility] [address] [address]- 5956 Jan, [facility] [address] [address]- 2542 Jan, 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 and Generalized anxiety disorder F41.1 [facility] [address] [address]- 0156 Sep, [facility] [address] 8666 Sep, [facility] [id number] [place] [address] 19363- 8814 Jul, 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 and Generalized anxiety disorder F41.1 [facility] [id number] [place] [address] 247715- 0855 Jul, Otalgia of right ear H92.01 [facility] [id number] [place] [address] 76022- 8312 Jun, [facility] [id number] [place] [address] 452254- 6381 Mar, [facility] [id number] [place] [address] 11168- 7508 Jan, [facility] [id number] [place] [address] 88873- 2898 Jan, [facility] [id number] [place] [address] 18407- 2883 Jan, Bipolar 1 disorder, mixed, moderate 296.62 and SHERRY ( generalized anxiety disorder) 300.02 [facility] [id number] [place] [address] 83741- 2400 Jan, [facility] [id number] [place] [address] 13112- 5228 Nov, [facility] [id number] [place] [address] 71195- 6321 Nov, [facility] [id number] [place] [address] 72545- 4252 Oct, [facility] [id number] [place] [address] 83369- 4564 Oct, [facility] [id number] [place] [address] 10801- 3958 Mar, [facility] [id number] [place] [address] 43071- 4659 Mar, [facility] [id number] [place] [address] 89657- 7046 Jan, [facility] [place] [facility] [address] [id number] [place] [address]- 2496 Jan, [facility] [place] [facility] [address] [id number] [place] [address]- 2199 December, [facility] [place] [facility] [address] [id number] [place] [address]- 8815 December, [facility] [place] [facility] [address] [id number] [place] [address]- 1293 December, [facility] [place] [facility] [address] [id number] [place] [address]- 8639 December, [facility] [place] [facility] [address] [id number] [place] [address]- 6292 December, [facility] [place] [facility] [address] [id number] [place] [address]- 9089 December, [facility] [place] [facility] [address] [id number] [place] [address]- 7895 December, [facility] [place] [facility] [address] [id number] [place] [address]- 6725 December, [facility] [place] [facility] [address] [id number] [place] [address]- 1129 Nov, [facility] [place] [facility] [address] [id number] [place] [address]- 4644 Nov, [facility] [place] [facility] [address] [id number] [place] [address]- 1446 Oct, [facility] [place] [facility] [address] [id number] [place] [address]- 7842 Oct, [facility] [place] [facility] [address] [id number] [place] [address]- 2129 Oct, [facility] [place] [facility] [address] [id number] [place] [address]- 9160 Oct, [facility] [place] [facility] [address] [id number] [place] [address]- 2328 Oct, [facility] [address] [id number] [place] [address]- 1557 Sep, [facility] [place] [facility] [address] [id number] [place] [address]- 2766 Sep, [facility] [place] [facility] [address] [id number] [place] [address]- 2236 Sep, [facility] [place] [facility] [address] [id number] [place] [address]- 0706 Sep, [facility] [place] [facility] [address] [id number] [place] 6127 Aug, [facility] [place] [facility] [address] [id number] [place] [address]- 1398 Aug, [facility] [place] [facility] [address] [id number] [place] [address]- 5139 Aug, [facility] [address] [id number] [place] [address]- 0331 Aug, [facility] [place] [facility] [address] [id number] [place] [address]- 8551 Aug, [facility] [place] [facility] [address] [id number] [place]- 4466 16 Jul, 2013 [facility] [place] [facility] [address] [id number] [place] [address]- 8602 Jul, [facility] [place] [facility] [address] [id number] [place] [address]- 0092 Jul, [facility] [place] [facility] [address] [id number] [place] [address]- 7124 Jul, [facility] [place] [facility] [address] [id number] [place] [address]- 2546 Jun, [facility] [place] [facility] [address] [id number] [place] [address]- 5417 Jun, [facility] [place] [facility] [address] [id number] [place] [address]- 5291 May, [facility] [place] [facility] [address] [id number] [place] [address]- 0752 May, [facility] [place] [facility] [address] [id number] [place] 9274 May, [facility] [place] [facility] [address] [id number] [place] [address]- 3610 May, [facility] [place] [facility] [address] [id number] [place] [address]- 1187 May, [facility] [place] [facility] [address] [id number] [place] [address]- 7172 May, [facility] [place] [facility] [address] [id number] [place] [address]- 7742 May, [facility] [place] [facility] [address] [id number] [place] [address]- 9412 May, [facility] [place] [facility] [address] [id number] [place] [address]- 4864 May, [facility] [place] [facility] [address] [id number] [address]- 9172 Apr, [facility] [place] [facility] [address] [id number] [address]- 8574 Apr, [facility] [place] [facility] [address] [id number] [address]- 1673 Mar, [facility] [place] [facility] [address] [id number] [place] [address]- 1297 Mar, [facility] [place] [facility] [address] [id number] [place] [address]- 7647 Mar, [facility] [place] [facility] [address] [id number] [place] [address]- 3799 Mar, [facility] [place] [facility] [address] [id number] [place] [address]- 7732 Mar, [facility] [address] [id number] [place] [address]- 1299 Mar, [facility] [place] [facility] [address] [id number] [place] [address]- 4698 Mar, [facility] [place] [facility] [address] [id number] [place] [address]- 2937 Mar, [facility] [place] [facility] [address] [id number] [place] [address]- 5021 Mar, [facility] [place] [facility] [address] [id number] [place] [address]- 5185 Mar, [facility] [place] [facility] [address] [id number] [place] [address]- 8109 Mar, [facility] [address] [id number] [place] [address]- 6729 Jan, [facility] [place] [facility] [address] [id number] [place] [address]- 0498 Jan, [facility] [place] [facility] [address] [id number] [place] [address]- 2237 Jan, [facility] [place] [facility] [address] [id number] [place] [address]- 7156 December, [facility] [place] [facility] [address] [id number] [place] [address]- 1058 December, [facility] [place] [facility] [address] [id number] [place] [address]- 7554 Nov, [facility] [place] [facility] [address] [id number] [place] [address]- 6708 Nov, [facility] [place] [facility] [address] [id number] [place] 2707 Oct, [facility] [place] [facility] [address] [id number] [place] 1578 Oct, [facility] [place] [facility] [address] [id number] [place] [address]- 7508 21 Oct, 2012 [facility] [address] [id number] [place] [address]- 9216 20 Oct, 2012 [facility] [address] [id number] [place] [address]- 7195 19 Oct, 2012 [facility] [address] [id number] [place] [address]- 7686 19 Oct, 2012 [facility] [address] [id number] [place] [address]- 3822 17 Oct, 2012 [facility] [address] [id number] [place] [address]- 0604 16 Oct, 2012 [facility] [address] [id number] [place] [address]- 9668 14 Oct, [address] [facility] [address] [id number] [place] [address]- 6233 13 Oct, [address] [facility] [address] [id number] [place] [address]- 6482 05 Oct, 2012 [facility] [address] [id number] [place] [address]- 0244 14 Sep, 2012 [facility] [address] [id number] [place] [address]- 5126 08 Sep, [address] [facility] [address] [id number] [place] [address]- 3568 Aug, [facility] [address] [id number] [place] [address]- 7876 16 Aug, 2012 [facility] [place] [facility] [address] [id number] [place] [address]- 4926 Aug, [facility] [place] [facility] [address] [id number] [place] [address]- 5040 09 Aug, 2012 [facility] [address] [id number] [place] [address]- 3690 07 Aug, 2012 [facility] [place] [facility] [address] [id number] [place] [address]- 0176 Jul, [facility] [place] [facility] [address] [id number] [place] [address]- 8346 Jul, [facility] [place] [facility] [address] [id number] [place] [address]- 2576 Jul, [facility] [place] [facility] [address] [id number] [place] [address]- 8226 19 Jul, 2012 [facility] [place] [facility] [address] [id number] [place] [address]- 5228 18 Jul, 2012 [facility] [place] [facility] [address] [id number] [place] [address] 17 Jul, 2012 [facility] [place] [facility] [address] [id number] [place] [address] 14 Jul, 2012 [facility] [place] [facility] [address] [id number] [place] [address] 14 Jul, 2012 [facility] [place] [facility] [address] [id number] [place] [address] 06 Jul, 2012 [facility] [place] [facility] [address] [id number] [place] [address] 06 Jul, 2012 [facility] [place] [facility] [address] [id number] [place] [address] 05 Jul, 2012 [facility] [place] [facility] [address] [id number] [place] [address] 05 Jul, 2012 [facility] [place] [facility] [address] [id number] [place] [address] 04 Jul, 2012 [facility] [place] [facility] [address] [id number] [place] [address] 04 Jul, 2012 [facility] [place] [facility] [address] [id number] [place] [address] 04 Jul, 2012 [facility] [place] [facility] [address] [id number] [place] [address] Jul, [facility] [place] [facility] [address] [id number] [place] [address] Jun, [facility] [place] [facility] [address] [id number] [place] [address] Jun, [facility] [place] [facility] [address] [id number] [place] [address] Jun, [facility] [place] [facility] [address] [id number] [place] [address] Jun, [facility] [place] [facility] [address] [id number] [place] [address] Jun, [facility] [place] [facility] [address] [id number] [place] [address] Jun, [facility] [place] [facility] [address] [id number] [place] [address] Jun, [facility] [place] [facility] [address] [id number] [place] [address] Jun, [facility] [place] [facility] [address] [id number] [place] [address] Jun, [facility] [place] [facility] [address] [id number] [place] [address] May, [facility] [place] [facility] [address] [id number] [place] [address] Mar, [facility] [place] [facility] [address] [id number] [place] [address] Mar, [facility] [place] [facility] [address] [id number] [place] [address] Mar, [facility] [place] [facility] [address] [id number] [place] [address] Mar, [facility] [place] [facility] [address] [id number] [place] [address] Jan, [facility] [place] [facility] [address] [id number] [place] [address] Jan, [facility] [place] [facility] [address] [id number] [place] [address] Jan, [facility] [place] [facility] [address] [id number] [place] [address] Jan, [facility] [place] [facility] [address] [id number] [place] [address] Jan, [facility] [place] [facility] [address] [id number] [place] [address] Jan, [facility] [place] [facility] [address] [id number] [place] [address] December, [facility] [place] [facility] [address] [id number] [place] [address] December, [facility] [place] [facility] [address] [id number] [place] [address] Nov, [facility] [place] [facility] [address] [id number] [place] [address] Nov, [facility] [place] [facility] [address] [id number] [place] [address] Oct, [facility] [place] [facility] [address] [id number] [place] [address] Oct, [facility] [place] [facility] [address] [id number] [address] Oct, [facility] [place] [facility] [address] [id number] [place] [address] Oct, [facility] [place] [facility] [address] [id number] [place] [address] Aug, [facility] [place] [facility] [address] [id number] [place] [address] Aug, [facility] [place] [facility] [address] [id number] [address] Jun, [facility] [place] [facility] [address] [id number] [place] [address] Jun, [facility] [place] [facility] [address] [id number] [place] [address] Jun, [facility] [place] [facility] [address] [id number] [place] [address] Jun, [facility] [place] [facility] [address] [id number] [place] [address] Jun, [facility] [place] [facility] [address] [id number] [address], [place] [address] May, [facility] [place] [facility] [address] [id number] [place] [address] May, [facility] [place] [facility] [address] [id number] [address] May, [facility] [place] [facility] [address] [id number] [place] [address] May, [facility] [place] [facility] [address] [id number] [place] [address] May, [facility] [place] [facility] [address] [facility] [id number] [place] [address] May, [facility] [place] [facility] [address] [id number] [place] [address] May, [facility] [place] [facility] [address] [id number] [place] [address] Mar, [facility] [place] [facility] [address] [id number] [place] [address] May, [facility] [place] [facility] [address] [id number] [place] [address] Jan, [facility] [place] [facility] [address] [facility] [id number] [place] [address] Jul, [facility] [place] [facility] [id number] [address] Jun, 2009 [facility] [id number] [address] Jun, [facility] [id number] [address] Jun, [facility] [id number] [address] Jun, [facility] [id number] [address] Jun, [facility] [id number] [place] [address] May, [facility] [id number] [address] May, [facility] [id number] [address] [address] May, [facility] [address] [id number] [address] Jul, IMMUNIZATIONS No Known Immunizations SOCIAL HISTORY Never Assessed REASON FOR VISIT new orders PLAN OF CARE VITAL SIGNS MEDICATIONS No [...]
--- OUTSIDE RECORDS SUMMARY | 2018-04-18 15:30 | XMS REPORT ---
Author Author WILKINSSREEKANTH Morales Organization [facility] Address [address] [place] [address] Care Team Providers Care Fan Balancer Name Role Phone SREEKANTH WILKINS Unavailable PROBLEMS Type Condition ICD9-CM Code RIH37-PV Code Onset Dates Condition Status SNOMED Code Problem History of hypertension Z86.79 Active 635869587 Problem Elevated LDL cholesterol level E78.00 Active 721362556 Problem Personality disorder F60.9 Active 13887946 Problem Other chronic pain G89.29 Active 53543465 Problem Hypoglycemia E16.2 Active 948940265 Problem Acute seasonal allergic rhinitis, unspecified trigger J30.2 Active 051237422 Problem Type 2 diabetes mellitus without complication, without long-term current use of insulin E11.9 Active 670351108 Problem Primary insomnia F51.01 Active 2692135 Problem Acute non intractable tension-type headache G44.209 Active 518580971 Problem Generalized anxiety disorder F41.1 Active 67779260 Problem Bipolar disorder in remission F31.70 Active 38042802 Problem Family history of diabetes insipidus Z83.49 Active 195467239 Problem Abnormal CBC R79.89 Active 030488728 Problem Bipolar disorder, current episode mixed, mild F31.61 Active 942343073 Problem History of diabetes mellitus Z86.39 Active 291934396 Problem Overweight (BMI 25.0-29.9) E66.3 Active 110352683 Problem Sore throat J02.9 Active 565635649 ALLERGIES No Information ENCOUNTERS Encounter Location Date Diagnosis [facility] [address] [facility] [id number] [address] Apr, [facility] [address] [place] [id number] [address] Mar, Plantar fascia syndrome M72.2 [facility] [address] [facility] [id number] [place] [address] Jan, UTI symptoms R39.9 and Epigastric pain R10.13 [place] [address] [place] [id number] [place] [address] 39409- 0014 Jan, Posterior right knee pain M25.561 [place] [address] [id number] [place] [address] 82453- 9034 Jan, Posterior right knee pain M25.561 [place] [address] 64684- 8390 Jan, Scabies B86 [place] [address] 76679- 2921 Jan, Bipolar disorder, current episode mixed, mild F31.61 and Personality disorder F60.9 [place] [address] [place] [id number] [place] [address] 55060- 9976 Jan, Cyst of ovary, unspecified laterality N83.209 [place] [address] [place] [id number]- 1385 December, Cyst of ovary, unspecified laterality N83.209 [place] [address] 13313- 7029 December, [place] [address] [place] [id number] [place] [address] 81096- 7267 December, Dysuria R30.0 [place] [address] [place] [id number] [place] [address] 10270- 3649 December, [place] [address] [place] [id number] [place] [address] 17945- 5760 Nov, Bipolar disorder, current episode mixed, mild F31.61 and Personality disorder F60.9 [place] [address] [place] [id number]- 1091 Nov, Elevated LDL cholesterol level E78.00 and Type 2 diabetes mellitus without complication, without long-term current use of insulin E11.9 [place] [address] [place] [id number] [place] [address] 56843- 1975 Nov, Elevated LDL cholesterol level E78.00 and Type 2 diabetes mellitus without complication, without long-term current use of insulin E11.9 [place] [address] [place] [id number] [place] [address] 67206- 0333 04 Nov, 2017 Other chronic pain G89.29 and Pain in left leg M79.605 [place] [address] 43407- 5601 02 Nov, 2017 Acute pain of left knee M25.562 ; Syncope, unspecified syncope type R55 and Hypoglycemia E16.2 [place] [address] [place] [id number] [place] [address] 40240- 5406 30 Oct, 2017 Syncope, unspecified syncope type R55 [place] [address] [place] [id number] [place] [address] 77651- 5143 Oct, Bipolar disorder, current episode mixed, mild F31.61 and Personality disorder F60.9 [place] [address] [place] [id number] [place] [address] 78893- 7162 Oct, Lump of right breast N63.10 [place] [address] [id number] [place] [address] 12136- 2652 Oct, Generalized anxiety disorder F41.1 [place] [address] [place] [id number] [place] [address] 33582- 4581 Oct, Generalized anxiety disorder F41.1 ; Bipolar disorder in remission F31.70 ; Bipolar disorder, current episode mixed, mild F31.61 and Primary insomnia F51.01 [place] [address] [id number] [place] [address] 24641- 7980 Oct, Primary insomnia F51.01 and Lump of right breast N63.10 [place] [address] [id number] [place] [address] 93230- 6076 16 Oct, 2017 Enteritis K52.9 [facility] [id number] [place] [address] 65274 -0854 Oct, Allergic conjunctivitis of both eyes H10.13 and Acute non intractable tension-type headache G44.209 [place] [address] 86408- 1345 Oct, [place] [address] [place] [id number]- 8638 Oct, Bipolar disorder, current episode mixed, mild F31.61 [place] [address] 55641- 4901 Sep, Right flank pain R10.9 and Thoracic spine pain M54.6 [place] [address] 48592- 6308 Sep, Generalized anxiety disorder F41.1 and Bipolar disorder, current episode mixed, mild F31.61 [place] [address] 69002- 1884 Sep, [place] [address] 00085- 9930 Sep, Generalized anxiety disorder F41.1 ; Bipolar disorder in remission F31.70 and Personality disorder F60.9 [place] [address] 44258- 7530 Sep, Spasm of thoracic back muscle M62.830 ; Type 2 diabetes mellitus without complication, without long-term current use of insulin E11.9 and Generalized anxiety disorder F41.1 [place] [address] 07826- 2173 Sep, Bipolar disorder, current episode mixed, mild F31.61 and Personality disorder F60.9 [place] [address] 65780- 6698 Aug, [place] [address] 64657- 2328 Aug, Bipolar disorder, current episode mixed, mild F31.61 and Personality disorder F60.9 [place] [address] [id number] [place] [address] 30236- 4617 Aug, Type 2 diabetes mellitus without complication, without long- term current use of insulin E11.9 ; Generalized anxiety disorder F41.1 ; Bipolar disorder in remission F31.70 and Overweight (BMI 25.0-29.9) E66.3 [place] [address] 03660- 6377 Aug, Type 2 diabetes mellitus without complication, without long- term current use of insulin E11.9 ; Elevated LDL cholesterol level E78.00 and Bipolar disorder, current episode mixed, mild F31.61 [facility] [place] [address] 85379 -9131 Jul, Vaginal discharge N89.8 ; Skin irritation R23.8 and Dysuria R30.0 [facility] [place] [address] 08023 -9187 Jul, Acute seasonal allergic rhinitis, unspecified trigger J30.2 and Chest pain, unspecified type R07.9 [place] [address] 67744- 2623 Jun, Bipolar disorder, current episode mixed, mild F31.61 [place] [address] 63440- 5338 Jun, [place] [address] 47137- 7736 Jun, Bipolar disorder, current episode mixed, mild F31.61 and Personality disorder F60.9 [place] [address] 47668- 3110 Jun, [place] [address] 18856- 4058 Jun, Type 2 diabetes mellitus without complication, without long- term current use of insulin E11.9 and Dysuria R30.0 [place] [address] 97804- 5978 May, Bipolar disorder, current episode mixed, mild F31.61 ; Personality disorder F60.9 and Homeless Z59.[address] 70940- 8713 May, Type 2 diabetes mellitus without complication, without long- term current use of insulin E11.[address] 39551- 1792 May, History of hypertension Z86.[address] 83599- 4411 May, [address] 55832- 1978 May, Type 2 diabetes mellitus without complication, without long- term current use of insulin E11.9 ; Elevated LDL cholesterol level E78.00 ; Low serum HDL R74.8 and Encounter for immunization Z23 [address] 62579- 5484 Apr, Encounter to establish care Z76.89 ; Abnormal CBC R79.89 ; History of hypertension Z86.79 ; Overweight (BMI 25.0-29.9) E66.3 ; Family history of diabetes insipidus Z83.49 ; Sore throat J02.9 and Tonsillitis with exudate J03.[address] 96342- 0920 Apr, Bipolar disorder, current episode mixed, mild F31.[address] 23943- 1319 Mar, Bipolar disorder, current episode mixed, mild F31.[address] 37288- 2636 Mar, [address] 46920- 5408 Mar, [address] 60313- 6545 Mar, Bipolar disorder in remission F31.70 [facility] [address] [facility] [id number] [place] [address]- 3516 Jan, 2016 [facility] [address] [facility] [id number] [place] [address]- 9756 Jan, [facility] [address] [facility] [id number] [place] [address]- 1386 Oct, Generalized anxiety disorder F41.1 and Bipolar disorder in remission F31.70 [facility] [address] [facility] [id number] [place] [address]- 0526 Oct, [facility] [address] [facility] [id number] [place] 3736 Oct, [facility] [address] [id number] [address]- 7476 Oct, [facility] [id number] [address]- 7523 Oct, [facility] [id number] [address]- 1669 Jul, [facility] [id number] [address]- 2786 Jun, [facility] [address] [id number] 9070 May, 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 and Generalized anxiety disorder F41.1 [facility] [address] [facility] [id number] [place] [address]- 2446 Jan, [facility] [address] [id number] [address]- 8166 Jan, [facility] [address] [facility] [id number] [place] 7216 Jan, 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 and Generalized anxiety disorder F41.1 [facility] [address] [address]- 9818 Sep, [facility] [address] [place] [id number] [place] [address] 771660- 1719 Sep, [facility] [id number] [place] [address] 511172- 9544 Jul, 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 and Generalized anxiety disorder F41.1 [facility] [id number] [place] [address] 78194- 8189 Jul, Otalgia of right ear H92.01 [facility] [id number] [place] [address] 921634- 1274 Jun, [facility] [id number] [place] [address] 647105- 8290 Mar, [facility] [id number] [place] [address] 24229- 8629 Jan, [facility] [id number] [place] [address] 39605- 2831 Jan, [facility] [id number] [place] [address] 83076- 1230 Jan, Bipolar 1 disorder, mixed, moderate 296.62 and SHERRY ( generalized anxiety disorder) 300.02 [facility] [id number] [address]- 4401 Jan, [facility] [id number] [place] [address] 39569- 4647 Nov, [facility] [id number] [place] [address] 32216- 9655 Nov, [facility] [id number] [place] [address] 94208- 3566 Oct, [facility] [id number] [place] [address] 917965- 6766 Oct, [facility] [id number] [place] [address] [place] [address]- 8208 Mar, [facility] [place] [facility] [address] [id number] [place] [address]- 3124 Mar, [facility] [place] [facility] [address] [id number] [place] [address]- 1029 Jan, [facility] [place] [facility] [address] [id number] [place] [address]- 7500 Jan, [facility] [place] [facility] [address] [id number] [place] [address]- 5026 December, [facility] [place] [facility] [address] [id number] [place] [address]- 3729 December, [facility] [place] [facility] [address] [id number] [place] [address]- 9132 December, [facility] [place] [facility] [address] [id number] [place] [address]- 9845 December, [facility] [place] [facility] [address] [id number] [place] [address]- 9095 December, [facility] [place] [facility] [address] [id number] [place] [address]- 1222 December, [facility] [place] [facility] [address] [id number] [place] [address]- 5269 December, [facility] [place] [facility] [address] [id number] [place] [address]- 8815 December, [facility] [place] [facility] [address] [id number] [place] [address]- 5149 Nov, [facility] [place] [facility] [address] [id number] [place] [address]- 5688 Nov, [facility] [place] [facility] [address] [id number] [place] [address]- 2021 Oct, [facility] [place] [facility] [address] [id number] [place] [address]- 5938 Oct, [facility] [place] [facility] [address] [id number] [place] [address]- 8492 10 Oct, 2013 [facility] [place] [facility] [address] [id number] [place] [address]- 4044 10 Oct, 2013 [facility] [place] [facility] [address] [id number] [place] [address]- 4092 Oct, [facility] [place] [facility] [address] [id number] [place] [address]- 2841 Sep, [facility] [place] [facility] [address] [id number] [place] [address]- 4907 Sep, [facility] [place] [facility] [address] [id number] [place] [address]- 1022 Sep, [facility] [place] [facility] [address] [id number] [place] [address]- 8893 Sep, [facility] [place] [facility] [address] [id number] [place] [address]- 4086 Aug, [facility] [place] [facility] [address] [id number] [place] [address]- 6278 Aug, [facility] [place] [facility] [address] [id number] [place] [address]- 7918 Aug, [facility] [place] [facility] [address] [id number] [place] [address]- 1601 Aug, [facility] [place] [facility] [address] [id number] [place] [address]- 9736 Aug, [facility] [place] [facility] [address] [id number] [place] [address]- 3066 Jul, [facility] [place] [facility] [address] [id number] [place] [address]- 7883 16 Jul, 2013 [facility] [place] [facility] [address] [id number] [place] [address]- 1036 11 Jul, 2013 [facility] [place] [facility] [address] [id number] [place] [address]- 0227 Jul, [facility] [place] [facility] [address] [id number] [place] [address]- 8913 Jun, [facility] [place] [facility] [address] [id number] [place] [address]- 3041 Jun, [facility] [place] [facility] [address] [id number] [place] [address]- 4839 May, [facility] [place] [facility] [address] [id number] [place] [address]- 4815 May, [facility] [place] [facility] [address] [id number] [place] 5739 May, [facility] [place] [facility] [address] [id number] [place] 5444 May, [facility] [place] [facility] [address] [id number] [place] [address]- 3859 May, [facility] [place] [facility] [address] [id number] [place] [address]- 2409 May, [facility] [place] [facility] [address] [id number] [place] [address]- 9968 May, [facility] [place] [facility] [address] [id number] [place] [address]- 9133 May, [facility] [place] [facility] [address] [id number] [place] [address]- 8383 May, [facility] [place] [facility] [address] [id number] [place] [address]- 6558 Apr, [facility] [place] [facility] [address] [id number] [place] [address]- 0653 Apr, [facility] [place] [facility] [address] [id number] [place] [address]- 2300 Mar, [facility] [place] [facility] [address] [id number] [place] [address]- 0345 Mar, [facility] [place] [facility] [address] [id number] [place] [address]- 3314 Mar, [facility] [address] [id number] [place] [address]- 7810 Mar, [facility] [address] [id number] [place] [address]- 4166 Mar, [facility] [address] [id number] [place] [address]- 4389 Mar, [facility] [address] [id number] [place] [address]- 9895 Mar, [facility] [address] [id number] [place] [address]- 3221 Mar, [facility] [address] [id number] [place] [address]- 6392 Mar, [facility] [address] [id number] [place] [address]- 1224 Mar, [facility] [address] [id number] [place] [address]- 2451 Mar, [facility] [address] [id number] [place] [address]- 4983 Jan, [facility] [address] [id number] [place] [address]- 2163 Jan, [facility] [address] [id number] [place] [address]- 3247 Jan, [facility] [address] [id number] [place] [address]- 1212 December, [facility] [place] [facility] [address] [id number] [place] [address]- 2157 December, [facility] [address] [id number] [place] [address]- 6775 Nov, [facility] [place] [facility] [address] [id number] [place] [address]- 0219 Nov, [facility] [address] [id number] [place] [address]- 5296 28 Oct, 2012 [facility] [place] [facility] [address] [id number] [place] [address]- 6994 26 Oct, 2012 [facility] [address] [id number] [place] [address]- 1093 21 Oct, 2012 [facility] [place] [facility] [address] [id number] [place] [address]- 5164 20 Oct, 2012 [facility] [address] [id number] [place] [address]- 4124 19 Oct, 2012 [facility] [place] [facility] [address] [id number] [place] [address]- 0552 19 Oct, 2012 [facility] [address] [id number] [place] [address]- 8364 17 Oct, 2012 [facility] [address] [id number] [place] [address]- 9926 16 Oct, 2012 [facility] [place] [facility] [address] [id number] [place] [address]- 2629 14 Oct, 2012 [facility] [place] [facility] [address] [id number] [place] [address]- 9977 13 Oct, 2012 [facility] [place] [facility] [address] [id number] [place] [address]- 6433 05 Oct, 2012 [facility] [place] [facility] [address] [id number] [place] [address]- 4428 14 Sep, 2012 [facility] [place] [facility] [address] [id number] [place] [address]- 3903 08 Sep, 2012 [facility] [place] [facility] [address] [id number] [place] [address]- 9585 21 Aug, 2012 [facility] [place] [facility] [address] [id number] [place] [address]- 0627 16 Aug, 2012 [facility] [place] [facility] [address] [id number] [place] [address]- 8127 12 Aug, 2012 [facility] [address] [id number] [place] [address]- 4812 09 Aug, 2012 [facility] [address] [id number] [place] [address]- 6516 Aug, [facility] [address] [id number] [place] [address]- 4224 Jul, [facility] [address] [id number] [place] [address]- 6434 Jul, [facility] [address] [id number] [place] [address]- 2886 Jul, [facility] [address] [id number] [place] [address]- 7358 Jul, [facility] [address] [id number] [place] [address]- 6455 18 Jul, 2012 [facility] [address] [id number] [place] [address]- 5892 17 Jul, 2012 [facility] [address] [id number] [place] [address]- 1304 14 Jul, 2012 [facility] [address] [id number] [place] [address]- 3087 14 Jul, 2012 [facility] [address] [id number] [place] [address] 06 Jul, 2012 [facility] [place] [facility] [address] [id number] [place] [address] 06 Jul, 2012 [facility] [place] [facility] [address] [id number] [place] [address] 05 Jul, 2012 [facility] [place] [facility] [address] [id number] [place] [address] 05 Jul, 2012 [facility] [address] [id number] [place] [address] 04 Jul, 2012 [facility] [place] [facility] [address] [id number] [place] [address] Jul, [facility] [place] [facility] [address] [id number] [place] [address] Jul, [facility] [place] [facility] [address] [id number] [place] [address] Jul, [facility] [place] [facility] [address] [id number] [place] [address] Jun, [facility] [place] [facility] [address] [id number] [place] [address] Jun, [facility] [place] [facility] [address] [id number] [place] [address] Jun, [facility] [place] [facility] [address] [id number] [place] [address] Jun, [facility] [place] [facility] [address] [id number] [place] [address] Jun, [facility] [place] [facility] [address] [id number] [place] [address] Jun, [facility] [place] [facility] [address] [id number] [place] [address] Jun, [facility] [place] [facility] [address] [id number] [place] [address]- [address] Jun, [facility] [place] [facility] [address] [id number] [place] [address]- [address] Jun, [facility] [place] [facility] [address] [id number] [place] [address] May, [facility] [place] [facility] [address] [id number] [place] [address] Mar, [facility] [place] [facility] [address] [id number] [place] [address] Mar, [facility] [place] [facility] [address] [id number] [place] [address]- [address] Mar, [facility] [place] [facility] [address] [id number] [place] [address] Mar, [facility] [place] [facility] [address] [id number] [place] [address] Jan, [facility] [place] [facility] [address] [id number] [place] [address] Jan, [facility] [place] [facility] [address] [id number] [place] [address] Jan, [facility] [place] [facility] [address] [id number] [place] [address] Jan, [facility] [place] [facility] [address] [id number] [place] [address]- [address] Jan, [facility] [place] [facility] [address] [id number] [place] [address] Jan, [facility] [place] [facility] [address] [id number] [place] [address] December, [facility] [place] [facility] [address] [id number] [place] [address] December, [facility] [place] [facility] [address] [id number] [place] [address] Nov, [facility] [place] [facility] [address] [id number] [place] [address] Nov, [facility] [place] [facility] [address] [id number] [place] [address] Oct, [facility] [place] [facility] [address] [id number] [place] [address] Oct, [facility] [place] [facility] [address] [id number] [place] [address] Oct, [facility] [place] [facility] [address] [id number] [place] [address] Oct, [facility] [place] [facility] [address] [id number] [place] [address] Aug, [facility] [address] [id number] [place] [address] Aug, [facility] [place] [facility] [address] [id number] [place] [address] Jun, [facility] [place] [facility] [address] [id number] [place] [address] Jun, [facility] [place] [facility] [address] [id number] [place] [address] Jun, [facility] [place] [facility] [address] [id number] [place] [address] Jun, [facility] [place] [facility] [address] [id number] [place] [address] Jun, [facility] [place] [facility] [address] [id number] [place] [address] May, [facility] [place] [facility] [address] [id number] [place] [address] May, [facility] [place] [facility] [address] [id number] [place] [address] May, [facility] [place] [facility] [address] [id number] [place] [address] May, [facility] [place] [facility] [address] [id number] [place] [address] May, [facility] [place] [facility] [address] [id number] [place] [address] May, [facility] [place] [facility] [address] [id number] [place] [address] May, [facility] [place] [facility] [address] [id number] [place] [address] Mar, [facility] [place] [facility] [address] [id number] [place] [address] May, [facility] [address] [facility] [id number] [place] [address] Jan, [facility] [address] [facility] [id number] [place] [address] Jul, [facility] [address] [facility] [id number] [place] [address] Jun, [facility] [address] [facility] [id number] [place] [address] Jun, [facility] [address] [facility] [id number] [place] [address] Jun, [facility] [address] [facility] [id number] [place] [address] Jun, [facility] [id number] [address] Jun, [facility] [id number] [address] May, [facility] [id number] [address] May, [facility] [id number] [address] May, [facility] [address] [id number] [address] Jul, IMMUNIZATIONS No Known Immunizations SOCIAL HISTORY Never Assessed REASON FOR VISIT PLAN OF CARE VITAL SIGNS MEDICATIONS Unknown [...]
--- OUTSIDE RECORDS SUMMARY | 2018-04-18 15:31 | XMS REPORT ---
Author Author CANDIDA Shannon Organization [facility] Address [address] [address] Care Team Providers Care Lab Coordinator Name Role Phone CANDIDA Shannon Unavailable PROBLEMS Type Condition ICD9-CM Code QHL38-EA Code Onset Dates Condition Status SNOMED Code Problem History of hypertension Z86.79 Active 713367161 Problem Elevated LDL cholesterol level E78.00 Active 074278996 Problem Personality disorder F60.9 Active 56069567 Problem Other chronic pain G89.29 Active 69057035 Problem Hypoglycemia E16.2 Active 143420967 Problem Acute seasonal allergic rhinitis, unspecified trigger J30.2 Active 863093245 Problem Type 2 diabetes mellitus without complication, without long-term current use of insulin E11.9 Active 880595207 Problem Primary insomnia F51.01 Active 3988955 Problem Acute non intractable tension-type headache G44.209 Active 650968605 Problem Generalized anxiety disorder F41.1 Active 83238392 Problem Bipolar disorder in remission F31.70 Active 17874842 Problem Family history of diabetes insipidus Z83.49 Active 156063210 Problem Abnormal CBC R79.89 Active 364414007 Problem Bipolar disorder, current episode mixed, mild F31.61 Active 196001186 Problem History of diabetes mellitus Z86.39 Active 715646559 Problem Overweight (BMI 25.0-29.9) E66.3 Active 031092204 Problem Sore throat J02.9 Active 019620980 ALLERGIES Substance Reaction Event Type Date Status MetFORMIN HCl ER nausea Drug Allergy December, Active Zyprexa rash Drug Allergy December, Active Cipro rash Drug Allergy December, Active ENCOUNTERS Encounter Location Date Diagnosis [facility] [address] [facility] [id number] [place] [address] Jan, UTI symptoms R39.9 and Epigastric pain R10.13 [facility] [facility] [id number] [place] [address] 86953- 3696 Jan, Posterior right knee pain M25.561 [facility] [facility] [id number] [place] [address] 45446- 9396 Jan, Posterior right knee pain M25.561 [facility] [facility] [id number] [place] [address] 28224- 2506 Jan, Scabies B86 [facility] [id number] [place] [address] 49345- 5967 Jan, Bipolar disorder, current episode mixed, mild F31.61 and Personality disorder F60.9 [facility] [facility] [id number] [place] [address] 32767- 0812 Jan, Cyst of ovary, unspecified laterality N83.209 [facility] [facility] [id number] [place] [address] 51776- 5881 December, Cyst of ovary, unspecified laterality N83.209 [place] [id number] [place] [address] 52068- 5188 December, [facility] [facility] [id number] [place] [address] 19850- 2837 December, Dysuria R30.0 [facility] [facility] [id number] [place] [address] 18736- 3360 December, [facility] [facility] [id number] [place] [address] 59145- 6399 Nov, Bipolar disorder, current episode mixed, mild F31.61 and Personality disorder F60.9 [facility] [id number] [place] [address] 87535- 7122 Nov, Elevated LDL cholesterol level E78.00 and Type 2 diabetes mellitus without complication, without long-term current use of insulin E11.9 [place] [id number] [place] [address] 57272- 5836 Nov, Elevated LDL cholesterol level E78.00 and Type 2 diabetes mellitus without complication, without long-term current use of insulin E11.9 [facility] [facility] [id number] [place] [address] 94638- 7104 04 Nov, 2017 Other chronic pain G89.29 and Pain in left leg M79.605 [place] [address] 77023- 9912 02 Nov, 2017 Acute pain of left knee M25.562 ; Syncope, unspecified syncope type R55 and Hypoglycemia E16.2 [place] [address] 43281- 5421 Oct, Syncope, unspecified syncope type R55 [place] [address] 45125- 7611 Oct, Bipolar disorder, current episode mixed, mild F31.61 and Personality disorder F60.9 [place] [address] 85318- 5835 Oct, Lump of right breast N63.10 [facility] [facility] [id number] [place] [address] 91394- 2561 Oct, Generalized anxiety disorder F41.1 [place] [address] 05322- 8468 Oct, Generalized anxiety disorder F41.1 ; Bipolar disorder in remission F31.70 ; Bipolar disorder, current episode mixed, mild F31.61 and Primary insomnia F51.01 [place] [id number] [place] [address] 02883- 8795 Oct, Primary insomnia F51.01 and Lump of right breast N63.10 [place] [address] 64419- 9112 16 Oct, 2017 Enteritis K52.9 [facility] [id number] [place] [address] 28495 -5327 14 Oct, 2017 Allergic conjunctivitis of both eyes H10.13 and Acute non intractable tension-type headache G44.209 [facility] [address] [place] [address] 60966- 5664 Oct, [place] [id number] [place] [address] 22260- 9463 Oct, Bipolar disorder, current episode mixed, mild F31.61 [facility] [facility] [id number] [place] [address] 77162- 0753 Sep, Right flank pain R10.9 and Thoracic spine pain M54.6 [facility] [facility] [id number] [place] [address] 99578- 7280 Sep, Generalized anxiety disorder F41.1 and Bipolar disorder, current episode mixed, mild F31.61 [facility] [facility] [id number] [place] [address] 13192- 9344 Sep, [facility] [facility] [id number] [place] [address] 78303- 4299 Sep, Generalized anxiety disorder F41.1 ; Bipolar disorder in remission F31.70 and Personality disorder F60.9 [facility] [facility] [id number] [place] [address] 23493- 0457 Sep, Spasm of thoracic back muscle M62.830 ; Type 2 diabetes mellitus without complication, without long-term current use of insulin E11.9 and Generalized anxiety disorder F41.1 [facility] [facility] [id number] [place] [address] 17834- 5308 Sep, Bipolar disorder, current episode mixed, mild F31.61 and Personality disorder F60.9 [place] [address] [place] [address] 38633- 0691 Aug, [facility] [facility] [id number] [place] [address] 11261- 7347 Aug, Bipolar disorder, current episode mixed, mild F31.61 and Personality disorder F60.9 [facility] [facility] [id number] [place] [address] 97279- 6727 Aug, Type 2 diabetes mellitus without complication, without long- term current use of insulin E11.9 ; Generalized anxiety disorder F41.1 ; Bipolar disorder in remission F31.70 and Overweight (BMI 25.0-29.9) E66.3 [facility] [facility] [id number] [place] [address] 09072- 1139 Aug, Type 2 diabetes mellitus without complication, without long- term current use of insulin E11.9 ; Elevated LDL cholesterol level E78.00 and Bipolar disorder, current episode mixed, mild F31.61 [facility] [id number] [place] [address] 13514 -7234 Jul, Vaginal discharge N89.8 ; Skin irritation R23.8 and Dysuria R30.0 [facility] [id number] [place] [address] 95214 -0345 Jul, Acute seasonal allergic rhinitis, unspecified trigger J30.2 and Chest pain, unspecified type R07.9 [facility] [facility] [id number] [place] [address] 56544- 6981 Jun, Bipolar disorder, current episode mixed, mild F31.61 [place] [address] 64362- 8892 Jun, [facility] [facility] [id number] [place] [address] 48347- 4749 Jun, Bipolar disorder, current episode mixed, mild F31.61 and Personality disorder F60.9 [place] [id number] [place] [address] 60040- 6687 Jun, [place] [address] 92312- 7638 Jun, Type 2 diabetes mellitus without complication, without long- term current use of insulin E11.9 and Dysuria R30.0 [place] [id number] [place] [address] 23746- 0729 May, Bipolar disorder, current episode mixed, mild F31.61 ; Personality disorder F60.9 and Homeless Z59.0 [place] [id number] [place] [address] 90667- 3540 May, Type 2 diabetes mellitus without complication, without long- term current use of insulin E11.9 [facility] [id number] [place] [address] 22511- 8697 May, History of hypertension Z86.79 [place] [address] 64486- 3828 May, [place] [address] 07232- 4646 May, Type 2 diabetes mellitus without complication, without long- term current use of insulin E11.9 ; Elevated LDL cholesterol level E78.00 ; Low serum HDL R74.8 and Encounter for immunization Z23 [address] [address]76- 8298 Apr, Encounter to establish care Z76.89 ; Abnormal CBC R79.89 ; History of hypertension Z86.79 ; Overweight (BMI 25.0-29.9) E66.3 ; Family history of diabetes insipidus Z83.49 ; Sore throat J02.9 and Tonsillitis with exudate J03.90 [facility] [facility] [id number] [place] [address] 31721- 1653 Apr, Bipolar disorder, current episode mixed, mild F31.61 [place] [id number] [place] [address] 00329- 5308 Mar, [place] [id number] [place] [address] 53617- 6435 Mar, Bipolar disorder, current episode mixed, mild F31.61 [facility] [id number] [place] [address] 76845- 4535 Mar, [facility] [id number] [place] [address] 92962- 5097 Mar, Bipolar disorder in remission F31.70 [facility] [address] [facility] [id number] [place] [address]- 5886 Jan, 2016 [facility] [address] [facility] [id number] [place] [address] 2546 Jan, [facility] [address] [facility] [id number] [place] [address] 2546 Oct, Generalized anxiety disorder F41.1 and Bipolar disorder in remission F31.70 [facility] [address] [facility] [id number] [place] [address] 2546 Oct, [facility] [address] [facility] [id number] [place] [address]- 6546 Oct, [facility] [address] [facility] [id number] [place] [address] 2546 Oct, [facility] [address] [place] [address]- 1816 Oct, [facility] [address] [facility] [id number] [place] [address]- 7586 Jul, [facility] [address] [place] [address] [id number] [place] [address] 2546 Jun, [facility] [address] [id number] [place] [address] 2546 May, 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 and Generalized anxiety disorder F41.1 [facility] [address] [id number] [address] 2546 Jan, [facility] [address] [facility] [id number] [place] [address] 2546 Jan, [facility] [address] [facility] [id number] [address] 2546 Jan, 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 and Generalized anxiety disorder F41.1 [facility] [address] [place] [address] [id number] [place] [address]- 2036 Sep, [facility] [address] [address]- 4851 Sep, [facility] [id number] [place] [address] 265181- 3613 Jul, 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 and Generalized anxiety disorder F41.1 [facility] [id number] [place] [address] 847364- 9833 Jul, Otalgia of right ear H92.01 [facility] [id number] [place] [address] 76087- 4146 Jun, [facility] [id number] [place] [address] 60425- 9149 Mar, [facility] [id number] [place] [address] 41414- 2038 Jan, [facility] [id number] [place] [address] 00731- 2940 Jan, [facility] [id number] [place] [address] 29066- 0643 Jan, Bipolar 1 disorder, mixed, moderate 296.62 and SHERRY ( generalized anxiety disorder) 300.02 [facility] [address] [address]- 2823 Jan, [facility] [id number] [place] [address] 87043- 6943 Nov, [facility] [id number] [place] [address] 85163- 7856 Nov, [facility] [id number] [place] [address] 523759- 6122 Oct, [facility] [id number] [place] [address] 489055- 3021 Oct, [facility] [address] [place] [address] 83377- 7148 Mar, [facility] [address] [id number] [place] [address]- 3000 Mar, [facility] [place] [facility] [address] [id number] [place] [address]- 1398 Jan, [facility] [place] [facility] [address] [id number] [place] [address]- 5646 Jan, [facility] [place] [facility] [address] [id number] [place] [address]- 0455 December, [facility] [place] [facility] [address] [id number] [place] [address]- 3455 December, [facility] [place] [facility] [address] [id number] [place] [address]- 9430 December, [facility] [place] [facility] [address] [id number] [place] [address]- 2547 December, [facility] [place] [facility] [address] [id number] [place] [address]- 9926 December, [facility] [place] [facility] [address] [id number] [place] [address]- 0034 December, [facility] [place] [facility] [address] [id number] [place] [address]- 2655 December, [facility] [place] [facility] [address] [id number] [place] [address]- 0250 December, [facility] [place] [facility] [address] [id number] [place] [address]- 0713 Nov, [facility] [place] [facility] [address] [id number] [place] [address]- 4828 Nov, [facility] [place] [facility] [address] [id number] [place] [address]- 3441 Oct, [facility] [place] [facility] [address] [id number] [place] [address]- 2815 Oct, [facility] [place] [facility] [address] [id number] [place] [address]- 7682 Oct, [facility] [place] [facility] [address] [id number] [place] [address]- 8668 Oct, [facility] [place] [facility] [address] [id number] [place] [address]- 0598 Oct, [facility] [place] [facility] [address] [id number] [place] [address]- 5611 Sep, [facility] [place] [facility] [address] [id number] [place] [address]- 2732 Sep, [facility] [place] [facility] [address] [id number] [place] [address]- 0903 Sep, [facility] [place] [facility] [address] [id number] [place] [address]- 9169 Sep, [facility] [place] [facility] [address] [id number] [place] [address]- 8609 Aug, [facility] [place] [facility] [address] [id number] [place] [address]- 9753 Aug, [facility] [place] [facility] [address] [id number] [place] [address]- 2257 Aug, [facility] [place] [facility] [address] [id number] [place] [address]- 3336 Aug, [facility] [place] [facility] [address] [id number] [place] [address]- 8972 Aug, [facility] [place] [facility] [address] [id number] [place] [address]- 8271 16 Jul, 2013 [facility] [place] [facility] [address] [id number] [place] [address]- 1939 16 Jul, 2013 [facility] [place] [facility] [address] [id number] [place] [address]- 9587 11 Jul, 2013 [facility] [place] [facility] [address] [id number] [place] [address]- 4023 Jul, [facility] [place] [facility] [address] [id number] [place] [address]- 2546 Jun, [facility] [place] [facility] [address] [id number] [place] [address]- 4771 Jun, [facility] [place] [facility] [address] [id number] [place] [address]- 8626 May, [facility] [place] [facility] [address] [id number] [place] [address]- 2702 May, [facility] [place] [facility] [address] [id number] [place] [address]- 5467 May, [facility] [place] [facility] [address] [id number] [place] [address]- 8446 May, [facility] [place] [facility] [address] [id number] [place] [address]- 5400 May, [facility] [place] [facility] [address] [id number] [place] [address]- 1270 May, [facility] [place] [facility] [address] [id number] [place] [address]- 5313 May, [facility] [place] [facility] [address] [id number] [place] [address]- 6264 May, [facility] [place] [facility] [address] [id number] [place] [address]- 6673 May, [facility] [place] [facility] [address] [id number] [place] [address]- 2546 Apr, [facility] [place] [facility] [address] [id number] [place] [address]- 0209 Apr, [facility] [place] [facility] [address] [id number] [place] [address]- 2546 Mar, [facility] [place] [facility] [address] [id number] [place] [address]- 2546 Mar, [facility] [place] [facility] [address] [id number] [place] [address]- 5976 Mar, [facility] [address] [id number] [place] [address]- 5620 Mar, [facility] [place] [facility] [address] [id number] [place] [address]- 1539 Mar, [facility] [place] [facility] [address] [id number] [place] [address]- 8116 Mar, [facility] [place] [facility] [address] [id number] [place] [address]- 3203 Mar, [facility] [place] [facility] [address] [id number] [place] [address]- 3770 Mar, [facility] [place] [facility] [address] [id number] [place] [address]- 5152 Mar, [facility] [place] [facility] [address] [id number] [place] [address]- 7084 Mar, [facility] [place] [facility] [address] [id number] [place] [address]- 6207 Mar, [facility] [place] [facility] [address] [id number] [place] [address]- 4002 Jan, [facility] [place] [facility] [address] [id number] [place] [address]- 3921 Jan, [facility] [place] [facility] [address] [id number] [place] [address]- 7319 Jan, [facility] [place] [facility] [address] [id number] [place] [address]- 1065 December, [facility] [place] [facility] [address] [id number] [place] [address]- 0069 December, [facility] [place] [facility] [address] [id number] [place] [address]- 3360 Nov, [facility] [place] [facility] [address] [id number] [place] [address]- 5438 Nov, [facility] [place] [facility] [address] [id number] [place] [address]- 1991 28 Oct, 2012 [facility] [address] [id number] [place] [address]- 6391 26 Oct, 2012 [facility] [place] [facility] [address] [id number] [place] [address]- 8612 21 Oct, 2012 [facility] [address] [id number] [place] [address]- 9450 20 Oct, 2012 [facility] [place] [facility] [address] [id number] [place] [address]- 8089 19 Oct, 2012 [facility] [address] [id number] [place] [address]- 7237 19 Oct, 2012 [facility] [address] [id number] [place] [address]- 5204 17 Oct, 2012 [facility] [address] [id number] [place] [address]- 3038 16 Oct, 2012 [facility] [address] [id number] [place] [address]- 4312 14 Oct, 2012 [facility] [address] [id number] [place] [address]- 4030 13 Oct, 2012 [facility] [address] [id number] [place] [address]- 8645 05 Oct, 2012 [facility] [address] [id number] [place] [address]- 0161 14 Sep, 2012 [facility] [place] [facility] [address] [id number] [place] [address]- 2277 08 Sep, 2012 [facility] [place] [facility] [address] [id number] [place] [address]- 4457 21 Aug, 2012 [facility] [place] [facility] [address] [id number] [place] [address]- 8724 16 Aug, 2012 [facility] [place] [facility] [address] [id number] [place] [address]- 3874 12 Aug, 2012 [facility] [place] [facility] [address] [id number] [place] [address]- 6369 Aug, [facility] [address] [id number] [place] [address]- 9713 Aug, [facility] [address] [id number] [place] [address] Jul, [facility] [address] [id number] [place] [address] Jul, [facility] [address] [id number] [place] [address] Jul, [facility] [address] [id number] [place] [address] Jul, [facility] [address] [id number] [place] [address] Jul, [facility] [address] [id number] [place] [address] Jul, [facility] [address] [id number] [place] [address] Jul, [facility] [address] [id number] [place] [address] Jul, [facility] [address] [id number] [place] [address] Jul, [facility] [address] [id number] [place] [address] Jul, [facility] [address] [id number] [place] [address] Jul, [facility] [place] [facility] [address] [id number] [place] [address] Jul, [facility] [address] [id number] [place] [address] Jul, [facility] [address] [id number] [place] [address] Jul, [facility] [place] [facility] [address] [id number] [place] [address] Jul, [facility] [place] [facility] [address] [id number] [place] [address] Jul, [facility] [place] [facility] [address] [id number] [place] [address] Jun, [facility] [place] [facility] [address] [id number] [place] [address] Jun, [facility] [place] [facility] [address] [id number] [place] [address] Jun, [facility] [place] [facility] [address] [id number] [place] [address] Jun, [facility] [place] [facility] [address] [id number] [place] [address] Jun, [facility] [place] [facility] [address] [id number] [place] [address]- [address] Jun, [facility] [place] [facility] [address] [id number] [place] [address] Jun, [facility] [place] [facility] [address] [id number] [place] [address]- [address] Jun, [facility] [place] [facility] [address] [id number] [place] [address] Jun, [facility] [address] [id number] [place] [address] May, [facility] [facility] [address] [id number] [place] [address] Mar, [facility] [place] [facility] [address] [id number] [place] [address] Mar, [facility] [place] [facility] [address] [id number] [place] [address] Mar, [facility] [address] [id number] [place] [address] Mar, [facility] [address] [id number] [place] [address] Jan, [facility] [facility] [address] [id number] [place] [address] Jan, [facility] [address] [id number] [place] [address] Jan, [facility] [address] [id number] [place] [address] Jan, [facility] [address] [id number] [place] [address] Jan, [facility] [address] [id number] [place] [address] 25[address] Jan, [facility] [address] [id number] [place] [address] December, [facility] [address] [id number] [place] [address]- [address] December, [facility] [address] [id number] [place] [address] Nov, [facility] [address] [id number] [place] [address] Nov, [facility] [place] [facility] [address] [id number] [place] [address] Oct, [facility] [address] [id number] [place] [address] Oct, [facility] [place] [facility] [address] [id number] [place] [address] Oct, [facility] [place] [facility] [address] [id number] [place] [address] Oct, [facility] [place] [facility] [address] [id number] [place] Aug, [facility] [place] [facility] [address] [id number] [place] [address] Aug, [facility] [place] [facility] [address] [id number] [place] [address] Jun, [facility] [place] [facility] [address] [id number] [place] [address] Jun, [facility] [place] [facility] [address] [id number] [place] [address] Jun, [facility] [place] [facility] [address] [id number] [place] [address] Jun, [facility] [place] [facility] [address] [id number] [place] [address] Jun, [facility] [place] [facility] [address] [id number] [place] [address] May, [facility] [place] [facility] [address] [id number] [place] [address] May, [facility] [place] [facility] [address] [id number] [place] [address] May, [facility] [place] [facility] [address] [id number], [place] [address] May, [facility] [place] [facility] [address] [id number], [place] [address] May, [facility] [place] [facility] [address] [id number], [place] [address] May, [facility] [place] [facility] [address] [id number] [place] [address] May, [facility] [place] [facility] [address] [id number], [place] [address] Mar, [facility] [place] [facility] [address] [id number], [place] [address] May, [facility] [place] [facility] [address] [id number], [place] [address] Jan, [facility] [id number] [address] Jul, [facility] [id number], [place] [address] Jun, [facility] [address] [id number], [place] [address] Jun, 2009 [facility] [id number] [place] [address] Jun, [facility] [id number] [place] [address] Jun, [facility] [id number] [place] [address] Jun, [facility] [id number] [place] [address] May, [facility] [address], [place] [address] May, [facility] [id number] [place] [address] May, [facility] [address], [place] [address] Jul, IMMUNIZATIONS No Known Immunizations SOCIAL HISTORY Never Assessed REASON FOR VISIT Stomach ache , nausea , fatigue x 4 days -- thanh yañez PLAN OF CARE Activity Details Follow Up prn Reason: VITAL SIGNS Height 62 in 2017-12-15 Weight 163.0 lbs 2017-12-15 Temperature 98.0 degrees Fahrenheit 2017-12-15 Heart Rate 80 bpm 2017-12-15 Respiratory Rate 20 2017-12-15 BMI 29.81 kg/m2 2017-12-15 Blood pressure systolic 136 mmHg 2017-12-15 Blood pressure diastolic 80 mmHg 2017-12-15 MEDICATIONS Medication Instructions Dosage Frequency Start Date End Date Duration Status Atorvastatin Calcium 10 mg Orally Once a day 1 tablet 24h May, 90 days Active Azelastine HCl 0.05 % Ophthalmic Twice a day 1 drop into affected eye 12h 14 Oct, 2017 Active Glucocard Expression Test 1 subcutaneously 2 times a day test 2 times per day 12h 02 May, 2017 12 months Active Abilify 10 MG Orally Once a day at bedtime 1 tablet 30 days Active Aspir-81 81 MG Orally Once a day 1 tablet 24h 26 Apr, 2017 Jan, 90 days Active Tramadol HCl 50 mg Orally 2 times a day 1 tablet as needed 12h Nov, Not-Taking Amitriptyline HCl 25 MG Orally at bedtime 1 tablet 24 Nov, 2017 30 day(s) Active Glimepiride 1 MG Orally Once a day 1 tablet with breakfast or the first main meal of the day 24h May, 90 days Active Lisinopril 5 MG Orally Once a day 1 tablet 24h 90 days Active RESULTS No Results PROCEDURES Procedure Date Ordered Result Body Site URINALYSIS, AUTO, W/O SCOPE December 15, 2017 URINE CULTURE/COLONY COUNT December 15, 2017 INSTRUCTIONS MEDICATIONS ADMINISTERED No Known Medications MEDICAL (GENERAL) HISTORY Type Description Date Medical History hypertension Medical History depression (hx of suicidal plan in 2012) Medical History insomnia Medical History bipolar disorder Surgical History Appendix Surgical History Tubal Ligation Hospitalization History Child /surgery Hospitalization History psych inpatient treatment, SI 2011
--- OUTSIDE RECORDS SUMMARY | 2018-04-18 15:31 | XMS REPORT ---
Author Author WILKINSSREEKANTH Organization [facility] Address [address] [place] [address] Care Team Providers Care Motor Vehicle Assembler Name Role Phone SREEKANTH WILKINS Unavailable PROBLEMS Type Condition ICD9-CM Code GAC87-YI Code Onset Dates Condition Status SNOMED Code Problem History of hypertension Z86.79 Active 848939973 Problem Elevated LDL cholesterol level E78.00 Active 364618805 Problem Personality disorder F60.9 Active 84318055 Problem Other chronic pain G89.29 Active 65691545 Problem Hypoglycemia E16.2 Active 897173301 Problem Acute seasonal allergic rhinitis, unspecified trigger J30.2 Active 285935529 Problem Type 2 diabetes mellitus without complication, without long-term current use of insulin E11.9 Active 639258851 Problem Primary insomnia F51.01 Active 8759557 Problem Acute non intractable tension-type headache G44.209 Active 397914959 Problem Generalized anxiety disorder F41.1 Active 34863393 Problem Bipolar disorder in remission F31.70 Active 82390136 Problem Family history of diabetes insipidus Z83.49 Active 716483223 Problem Abnormal CBC R79.89 Active 493987580 Problem Bipolar disorder, current episode mixed, mild F31.61 Active 650141452 Problem History of diabetes mellitus Z86.39 Active 158533032 Problem Overweight (BMI 25.0-29.9) E66.3 Active 106385663 Problem Sore throat J02.9 Active 930733860 ALLERGIES No Information ENCOUNTERS Encounter Location Date Diagnosis [facility] [id number] [place] [address] 29169- 0738 Jan, UTI symptoms R39.9 and Epigastric pain R10.13 [facility] [id number] [place] [address] 63937- 9478 Jan, Posterior right knee pain M25.561 [facility] [id number] [place] [address] 09673- 3140 Jan, Posterior right knee pain M25.561 [facility] [id number] [place] [address] 22484- 5923 Jan, Scabies B86 [facility] [id number] [place] [address] 30300- 5490 Jan, Bipolar disorder, current episode mixed, mild F31.61 and Personality disorder F60.9 [facility] [address] 85363- 7213 Jan, Cyst of ovary, unspecified laterality N83.209 [facility] [address] 082890- 7663 December, Cyst of ovary, unspecified laterality N83.209 [facility] [address] 30209- 2786 December, [facility] [address] 53138- 2243 December, Dysuria R30.0 [facility] [id number] [place] [address] 11890- 9610 December, [facility] [id number] [place] [address] 61069- 2269 Nov, Bipolar disorder, current episode mixed, mild F31.61 and Personality disorder F60.9 [facility] [id number] [place] [address] 52825- 2026 Nov, Elevated LDL cholesterol level E78.00 and Type 2 diabetes mellitus without complication, without long-term current use of insulin E11.9 [facility] [id number] [place] [address] 43488- 1848 Nov, Elevated LDL cholesterol level E78.00 and Type 2 diabetes mellitus without complication, without long-term current use of insulin E11.9 [facility] [id number] [place] [address] 17757- 9512 Nov, Other chronic pain G89.29 and Pain in left leg M79.605 [facility] [id number] [place] [address] 45940- 2350 02 Nov, 2017 Acute pain of left knee M25.562 ; Syncope, unspecified syncope type R55 and Hypoglycemia E16.2 [facility] [id number] [place] [address] 89364- 1269 30 Oct, 2017 Syncope, unspecified syncope type R55 [facility] [address] 51511- 3692 Oct, Bipolar disorder, current episode mixed, mild F31.61 and Personality disorder F60.9 [facility] [address] 19377- 2962 Oct, Lump of right breast N63.10 [facility] [address] 89437- 1098 Oct, Generalized anxiety disorder F41.1 [facility] [address] 25423- 8859 Oct, Generalized anxiety disorder F41.1 ; Bipolar disorder in remission F31.70 ; Bipolar disorder, current episode mixed, mild F31.61 and Primary insomnia F51.01 [facility] [id number] [place] [address] 56100- 6087 Oct, Primary insomnia F51.01 and Lump of right breast N63.10 [facility] [id number] [place] [address] 47820- 3843 16 Oct, 2017 Enteritis K52.9 [facility] [id number] [place] [address] 07543 -9983 14 Oct, 2017 Allergic conjunctivitis of both eyes H10.13 and Acute non intractable tension-type headache G44.209 [facility] [id number] [place] [address] 13660- 5962 14 Oct, 2017 [facility] [address] [place] [address]- 4896 Oct, Bipolar disorder, current episode mixed, mild F31.61 [facility] [id number] [place] [address] 10521- 8116 Sep, Right flank pain R10.9 and Thoracic spine pain M54.6 [facility] [id number] [place] [address] 15156- 4419 Sep, Generalized anxiety disorder F41.1 and Bipolar disorder, current episode mixed, mild F31.61 [facility] [id number] [place] [address] 90530- 0762 Sep, [facility] [id number] [place] [address] 02794- 9609 Sep, Generalized anxiety disorder F41.1 ; Bipolar disorder in remission F31.70 and Personality disorder F60.9 [facility] [id number] [place] [address] 20396- 6396 Sep, Spasm of thoracic back muscle M62.830 ; Type 2 diabetes mellitus without complication, without long-term current use of insulin E11.9 and Generalized anxiety disorder F41.1 [facility] [id number] [place] [address] 36626- 7435 Sep, Bipolar disorder, current episode mixed, mild F31.61 and Personality disorder F60.9 [facility] [id number] [place] [address] 66297- 2080 Aug, [facility] [id number] [place] [address] 56529- 8075 Aug, Bipolar disorder, current episode mixed, mild F31.61 and Personality disorder F60.9 [facility] [id number] [place] [address] 12005- 2913 05 Aug, 2017 Type 2 diabetes mellitus without complication, without long- term current use of insulin E11.9 ; Generalized anxiety disorder F41.1 ; Bipolar disorder in remission F31.70 and Overweight (BMI 25.0-29.9) E66.3 [facility] [address] 72242- 7379 Aug, Type 2 diabetes mellitus without complication, without long- term current use of insulin E11.9 ; Elevated LDL cholesterol level E78.00 and Bipolar disorder, current episode mixed, mild F31.61 [facility] [address] 05014 -9698 Jul, Vaginal discharge N89.8 ; Skin irritation R23.8 and Dysuria R30.0 [facility] [address] 40814 -2105 Jul, Acute seasonal allergic rhinitis, unspecified trigger J30.2 and Chest pain, unspecified type R07.9 [facility] [address] 16885- 6584 Jun, Bipolar disorder, current episode mixed, mild F31.61 [facility] [address] 66614- 0256 Jun, [facility] [address] 61460- 2345 Jun, Bipolar disorder, current episode mixed, mild F31.61 and Personality disorder F60.9 [facility] [address] 85433- 2310 Jun, [facility] [address] 09754- 1079 Jun, Type 2 diabetes mellitus without complication, without long- term current use of insulin E11.9 and Dysuria R30.0 [facility] [address] 08695- 0791 May, Bipolar disorder, current episode mixed, mild F31.61 ; Personality disorder F60.9 and Homeless Z59.0 [facility] [address] 74906- 5080 May, Type 2 diabetes mellitus without complication, without long- term current use of insulin E11.9 [facility] [id number] [place] [address] 66576- 2116 May, History of hypertension Z86.79 [facility] [id number] [place] [address] 07207- 3810 May, [facility] [id number] [place] [address] 46281- 9387 May, Type 2 diabetes mellitus without complication, without long- term current use of insulin E11.9 ; Elevated LDL cholesterol level E78.00 ; Low serum HDL R74.8 and Encounter for immunization Z23 [facility] [address] 10329- 5069 Apr, Encounter to establish care Z76.89 ; Abnormal CBC R79.89 ; History of hypertension Z86.79 ; Overweight (BMI 25.0-29.9) E66.3 ; Family history of diabetes insipidus Z83.49 ; Sore throat J02.9 and Tonsillitis with exudate J03.90 [facility] [id number] [place] [address] 22114- 5157 Apr, Bipolar disorder, current episode mixed, mild F31.61 [facility] [id number] [place] [address] 88167- 7498 Mar, [facility] [id number] [place] [address] 31698- 8948 Mar, Bipolar disorder, current episode mixed, mild F31.61 [facility] [id number] [place] [address] 46483- 9506 Mar, [facility] [id number] [place] [address] 80119- 0647 Mar, Bipolar disorder in remission F31.70 [facility] [id number] [place] [address] 64871- 4619 Jan, [facility] [address] 55297- 5386 Jan, [facility] [id number] 6531 Oct, Generalized anxiety disorder F41.1 and Bipolar disorder in remission F31.70 [facility] [id number] [address]- 1436 Oct, [facility] [address] 3226 Oct, [facility] [address] [facility] [id number] [place] [address]- 0246 Oct, [facility] [address] [place] [address]- 5406 Oct, [facility] [address] [address]- 9571 Jul, [facility] [address] [address]- 1893 Jun, [facility] [id number] [address]- 2170 May, 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 and Generalized anxiety disorder F41.1 [facility] [address] [address]- 3950 Jan, [facility] [address] [address]- 7146 Jan, [facility] [address] [address]- 2549 Jan, 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 and Generalized anxiety disorder F41.1 [facility] [address] [address]- 0696 Sep, [facility] [address] 1856 Sep, [facility] [id number] [place] [address] 48725- 7051 Jul, 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 and Generalized anxiety disorder F41.1 [facility] [id number] [place] [address] 785681- 0593 Jul, Otalgia of right ear H92.01 [facility] [id number] [place] [address] 70134- 6664 Jun, [facility] [id number] [place] [address] 018190- 2130 Mar, [facility] [id number] [place] [address] 26300- 9588 Jan, [facility] [id number] [place] [address] 33942- 1184 Jan, [facility] [id number] [place] [address] 29594- 2521 Jan, Bipolar 1 disorder, mixed, moderate 296.62 and SHERRY ( generalized anxiety disorder) 300.02 [facility] [id number] [place] [address] 39588- 1656 Jan, [facility] [id number] [place] [address] 97521- 3429 Nov, [facility] [address] [place] [address] 42014- 8322 Nov, [facility] [id number] [place] [address] 30620- 6810 Oct, [facility] [address] [place] [address] 44606- 9219 Oct, [facility] [id number] [place] [address] 21179- 4775 Mar, [facility] [id number] [place] [address] 69685- 2592 Mar, [facility] [id number] [place] [address] 51853- 2911 Jan, [facility] [place] [facility] [address] [id number] [place] [address]- 6341 Jan, [facility] [place] [facility] [address] [id number] [place] [address]- 3399 December, [facility] [place] [facility] [address] [id number] [place] [address]- 5773 December, [facility] [place] [facility] [address] [id number] [place] [address]- 3600 December, [facility] [place] [facility] [address] [id number] [place] [address]- 4477 December, [facility] [place] [facility] [address] [id number] [place] [address]- 1285 December, [facility] [place] [facility] [address] [id number] [place] [address]- 1400 December, [facility] [place] [facility] [address] [id number] [place] [address]- 1019 December, [facility] [place] [facility] [address] [id number] [place] [address]- 4278 December, [facility] [place] [facility] [address] [id number] [place] [address]- 8933 Nov, [facility] [place] [facility] [address] [id number] [place] [address]- 6369 Nov, [facility] [place] [facility] [address] [id number] [place] [address]- 2805 Oct, [facility] [place] [facility] [address] [id number] [place] [address]- 5724 Oct, [facility] [place] [facility] [address] [id number] [place] [address]- 7433 Oct, [facility] [place] [facility] [address] [id number] [place] [address]- 7040 Oct, [facility] [place] [facility] [address] [id number] [place] [address]- 6483 Oct, [facility] [address] [id number] [place] [address]- 3075 Sep, [facility] [place] [facility] [address] [id number] [place] [address]- 6076 Sep, [facility] [place] [facility] [address] [id number] [place] [address]- 9736 Sep, [facility] [place] [facility] [address] [id number] [place] [address]- 5244 Sep, [facility] [place] [facility] [address] [id number] [place] 8245 Aug, [facility] [place] [facility] [address] [id number] [place] [address]- 1374 Aug, [facility] [place] [facility] [address] [id number] [place] [address]- 1352 Aug, [facility] [address] [id number] [place] [address]- 2226 Aug, [facility] [place] [facility] [address] [id number] [place] [address]- 3893 Aug, [facility] [place] [facility] [address] [id number] [place] 5948 16 Jul, 2013 [facility] [place] [facility] [address] [id number] [place] [address]- 9994 Jul, [facility] [place] [facility] [address] [id number] [place] [address]- 3546 Jul, [facility] [place] [facility] [address] [id number] [place] [address]- 3580 Jul, [facility] [place] [facility] [address] [id number] [place] [address]- 2546 Jun, [facility] [place] [facility] [address] [id number] [place] [address]- 7961 Jun, [facility] [place] [facility] [address] [id number] [place] [address]- 7374 May, [facility] [place] [facility] [address] [id number] [place] [address]- 4941 May, [facility] [place] [facility] [address] [id number] [place] 7947 May, [facility] [place] [facility] [address] [id number] [place] [address]- 3898 May, [facility] [place] [facility] [address] [id number] [place] [address]- 0783 May, [facility] [place] [facility] [address] [id number] [place] [address]- 8394 May, [facility] [place] [facility] [address] [id number] [place] [address]- 7032 May, [facility] [place] [facility] [address] [id number] [place] [address]- 4743 May, [facility] [place] [facility] [address] [id number] [place] [address]- 1443 May, [facility] [place] [facility] [address] [id number] [address]- 8862 Apr, [facility] [place] [facility] [address] [id number] [address]- 6899 Apr, [facility] [place] [facility] [address] [id number] [address]- 8907 Mar, [facility] [place] [facility] [address] [id number] [place] [address]- 9767 Mar, [facility] [place] [facility] [address] [id number] [place] [address]- 9996 Mar, [facility] [place] [facility] [address] [id number] [place] [address]- 0272 Mar, [facility] [place] [facility] [address] [id number] [place] [address]- 7902 Mar, [facility] [address] [id number] [place] [address]- 1647 Mar, [facility] [place] [facility] [address] [id number] [place] [address]- 1286 Mar, [facility] [place] [facility] [address] [id number] [place] [address]- 8759 Mar, [facility] [place] [facility] [address] [id number] [place] [address]- 3722 Mar, [facility] [place] [facility] [address] [id number] [place] [address]- 1509 Mar, [facility] [place] [facility] [address] [id number] [place] [address]- 7958 Mar, [facility] [address] [id number] [place] [address]- 3743 Jan, [facility] [place] [facility] [address] [id number] [place] [address]- 2709 Jan, [facility] [place] [facility] [address] [id number] [place] [address]- 1853 Jan, [facility] [place] [facility] [address] [id number] [place] [address]- 8799 December, [facility] [place] [facility] [address] [id number] [place] [address]- 8611 December, [facility] [place] [facility] [address] [id number] [place] [address]- 9587 Nov, [facility] [place] [facility] [address] [id number] [place] [address]- 1152 Nov, [facility] [place] [facility] [address] [id number] [place] 1353 Oct, [facility] [place] [facility] [address] [id number] [place] 1870 Oct, [facility] [place] [facility] [address] [id number] [place] [address]- 2583 21 Oct, 2012 [facility] [address] [id number] [place] [address]- 9409 20 Oct, 2012 [facility] [address] [id number] [place] [address]- 9813 19 Oct, 2012 [facility] [address] [id number] [place] [address]- 4990 19 Oct, 2012 [facility] [address] [id number] [place] [address]- 3990 17 Oct, 2012 [facility] [address] [id number] [place] [address]- 0819 16 Oct, 2012 [facility] [address] [id number] [place] [address]- 8939 14 Oct, 2012 [facility] [address] [id number] [place] [address]- 9252 13 Oct, 2012 [facility] [address] [id number] [place] [address]- 3549 05 Oct, 2012 [facility] [address] [id number] [place] [address]- 8304 14 Sep, 2012 [facility] [address] [id number] [place] [address]- 3079 08 Sep, 2012 [facility] [address] [id number] [place] [address]- 5904 Aug, [facility] [address] [id number] [place] [address]- 8031 16 Aug, 2012 [facility] [place] [facility] [address] [id number] [place] [address]- 2000 Aug, [facility] [place] [facility] [address] [id number] [place] [address]- 1071 09 Aug, 2012 [facility] [address] [id number] [place] [address]- 4953 07 Aug, 2012 [facility] [place] [facility] [address] [id number] [place] [address]- 0206 Jul, [facility] [place] [facility] [address] [id number] [place] [address]- 1906 Jul, [facility] [place] [facility] [address] [id number] [place] [address]- 9846 Jul, [facility] [place] [facility] [address] [id number] [place] [address]- 3346 19 Jul, 2012 [facility] [place] [facility] [address] [id number] [place] [address]- 4345 18 Jul, 2012 [facility] [place] [facility] [address] [id number] [place] [address]- 0451 17 Jul, 2012 [facility] [place] [facility] [address] [id number] [place] [address] 14 Jul, 2012 [facility] [place] [facility] [address] [id number] [place] [address]479 14 Jul, 2012 [facility] [place] [facility] [address] [id number] [place] [address]- [address]70 06 Jul, 2012 [facility] [place] [facility] [address] [id number] [place] [address]- [address] 06 Jul, 2012 [facility] [place] [facility] [address] [id number] [place] [address]- 9065 05 Jul, 2012 [facility] [place] [facility] [address] [id number] [place] [address]- [address] 05 Jul, 2012 [facility] [place] [facility] [address] [id number] [place] [address]- 9646 04 Jul, 2012 [facility] [place] [facility] [address] [id number] [place] [address]- 6055 04 Jul, 2012 [facility] [place] [facility] [address] [id number] [place] [address]- 30[address] 04 Jul, 2012 [facility] [place] [facility] [address] [id number] [place] [address]- 164[address] Jul, [facility] [place] [facility] [address] [id number] [place] [address] Jun, [facility] [place] [facility] [address] [id number] [place] [address]- 113[address] Jun, [facility] [place] [facility] [address] [id number] [place] [address]- [address] Jun, [facility] [place] [facility] [address] [id number] [place] [address]- [address]34 Jun, [facility] [place] [facility] [address] [id number] [place] [address]- 86[address] Jun, [facility] [place] [facility] [address] [id number] [place] [address]- [address] Jun, [facility] [place] [facility] [address] [id number] [place] [address]- [address]600 Jun, [facility] [place] [facility] [address] [id number] [place] [address]- 72[address] Jun, [facility] [place] [facility] [address] [id number] [place] [address]- 9768 Jun, [facility] [place] [facility] [address] [id number] [place] [address]- [address] May, [facility] [place] [facility] [address] [id number] [place] [address]- [address] Mar, [facility] [place] [facility] [address] [id number] [place] [address] Mar, [facility] [place] [facility] [address] [id number] [place] [address]- [address] Mar, [facility] [place] [facility] [address] [id number] [place] [address]- 7946 Mar, [facility] [place] [facility] [address] [id number] [place] [address]- 94[address] Jan, [facility] [place] [facility] [address] [id number] [place] [address] 35[address] Jan, [facility] [place] [facility] [address] [id number] [place] [address]- 0[address] Jan, [facility] [place] [facility] [address] [id number] [place] [address]- 57[address] Jan, [facility] [place] [facility] [address] [id number] [place] [address]- 8344 Jan, [facility] [place] [facility] [address] [id number] [place] [address]- 56[address] Jan, [facility] [place] [facility] [address] [id number] [place] [address]- 99[address] December, [facility] [place] [facility] [address] [id number] [place] [address]- [address] December, [facility] [place] [facility] [address] [id number] [place] [address]- 4[address] Nov, [facility] [place] [facility] [address] [id number] [place] [address]- [address] Nov, [facility] [place] [facility] [address] [id number] [place] [address]- [address] Oct, [facility] [place] [facility] [address] [id number] [place] [address] Oct, [facility] [place] [facility] [address] [id number] [address] Oct, [facility] [place] [facility] [address] [address] [id number] [place] [address] Oct, [facility] [place] [facility] [address] [id number] [place] [address] Aug, [facility] [place] [facility] [address] [id number] [place] [address] Aug, [facility] [place] [facility] [address] [id number] [address] Jun, [facility] [place] [facility] [address] [id number] [place] [address] Jun, [facility] [place] [facility] [address] [id number] [place] [address] Jun, [facility] [place] [facility] [address] [id number] [place] [address] Jun, [facility] [place] [facility] [address] [id number] [place] [address] Jun, [facility] [place] [facility] [address] [id number] [place] [address], [place] [address] May, [facility] [place] [facility] [address] [id number] [place] [address] May, [facility] [place] [facility] [address] [id number] [address] May, [facility] [place] [facility] [address] [id number] [place] [address] May, [facility] [place] [facility] [address] [id number] [place] [address] May, [facility] [place] [facility] [address] [facility] [id number] [place] [address] May, [facility] [place] [facility] [address] [id number] [address] May, [facility] [place] [facility] [address] [id number] [place] [address] Mar, [facility] [place] [facility] [address] [id number] [place] [address] May, [facility] [place] [facility] [address] [id number] [place] [address] Jan, [facility] [place] [facility] [address] [facility] [id number] [place] [address] Jul, [facility] [place] [facility] [id number] [address] Jun, [facility] [id number] [address] Jun, [facility] [id number] Jun, [facility] [id number] [address] Jun, [facility] [id number] [address] Jun, [facility] [id number] [place] [address] May, [facility] [id number] [address] May, [facility] [id number] [address] May, [facility] [id number] [address] Jul, IMMUNIZATIONS No Known Immunizations SOCIAL HISTORY Never Assessed REASON FOR VISIT [employer] Referral PLAN OF CARE VITAL SIGNS MEDICATIONS No [...]
--- OUTSIDE RECORDS SUMMARY | 2018-04-18 15:32 | XMS REPORT ---
Author Author WILKINSSREEKANTH Organization [facility] Address [address] [place] [address] Care Team Providers Care Live Truck Operator Name Role Phone SREEKANTH WILKINS Unavailable PROBLEMS Type Condition ICD9-CM Code JAI72-[id number] Code Onset Dates Condition Status SNOMED Code Problem History of hypertension Z86.79 Active 040552874 Problem Elevated LDL cholesterol level E78.00 Active 779589864 Problem Personality disorder F60.9 Active 43637153 Problem Other chronic pain G89.29 Active 65469034 Problem Hypoglycemia E16.2 Active 864661297 Problem Acute seasonal allergic rhinitis, unspecified trigger J30.2 Active 063159967 Problem Type 2 diabetes mellitus without complication, without long-term current use of insulin E11.9 Active 880526404 Problem Primary insomnia F51.01 Active 0514238 Problem Acute non intractable tension-type headache G44.209 Active 428801277 Problem Generalized anxiety disorder F41.1 Active 34570652 Problem Bipolar disorder in remission F31.70 Active 47858152 Problem Family history of diabetes insipidus Z83.49 Active 607611027 Problem Abnormal CBC R79.89 Active 006370395 Problem Bipolar disorder, current episode mixed, mild F31.61 Active 914469326 Problem History of diabetes mellitus Z86.39 Active 850246470 Problem Overweight (BMI 25.0-29.9) E66.3 Active 623415502 Problem Sore throat J02.9 Active 865135650 ALLERGIES No Information ENCOUNTERS Encounter Location Date Diagnosis [facility] [id number] [place] [address] 45488- 6929 Jan, UTI symptoms R39.9 and Epigastric pain R10.13 [facility] [id number] [place] [address] 16002- 4929 Jan, Posterior right knee pain M25.561 [facility] [id number] [place] [address] 80441- 9224 Jan, Posterior right knee pain M25.561 [facility] [id number] [place] [address] 61884- 7960 Jan, Scabies B86 [facility] [id number] [place] [address] 25659- 7204 Jan, Bipolar disorder, current episode mixed, mild F31.61 and Personality disorder F60.9 [facility] [address] 61576- 9252 Jan, Cyst of ovary, unspecified laterality N83.209 [place] [address] [place] 287516- 3008 December, Cyst of ovary, unspecified laterality N83.209 [facility] [address] 63028- 5187 December, [facility] [address] 79946- 6812 December, Dysuria R30.0 [facility] [id number] [place] [address] 97833- 5294 December, [facility] [id number] [place] [address] 33447- 1295 Nov, Bipolar disorder, current episode mixed, mild F31.61 and Personality disorder F60.9 [facility] [id number] [place] [address] 80886- 8908 Nov, Elevated LDL cholesterol level E78.00 and Type 2 diabetes mellitus without complication, without long-term current use of insulin E11.9 [facility] [id number] [place] [address] 50525- 9719 Nov, Elevated LDL cholesterol level E78.00 and Type 2 diabetes mellitus without complication, without long-term current use of insulin E11.9 [facility] [id number] [place] [address] 41487- 8537 Nov, Other chronic pain G89.29 and Pain in left leg M79.605 [facility] [id number] [place] [address] 46065- 7458 02 Nov, 2017 Acute pain of left knee M25.562 ; Syncope, unspecified syncope type R55 and Hypoglycemia E16.2 [facility] [place] [id number] [place] [address] 68903- 3688 30 Oct, 2017 Syncope, unspecified syncope type R55 [facility] [address] 21981- 0491 Oct, Bipolar disorder, current episode mixed, mild F31.61 and Personality disorder F60.9 [facility] [facility] [address] 88196- 4509 Oct, Lump of right breast N63.10 [facility] [address] 46188- 1271 Oct, Generalized anxiety disorder F41.1 [facility] [address] 45865- 5219 Oct, Generalized anxiety disorder F41.1 ; Bipolar disorder in remission F31.70 ; Bipolar disorder, current episode mixed, mild F31.61 and Primary insomnia F51.01 [facility] [id number] [place] [address] 66155- 8194 Oct, Primary insomnia F51.01 and Lump of right breast N63.10 [facility] [id number] [place] [address] 52649- 0920 16 Oct, 2017 Enteritis K52.9 [facility] [id number] [place] [address] 02926 -2226 14 Oct, 2017 Allergic conjunctivitis of both eyes H10.13 and Acute non intractable tension-type headache G44.209 [facility] [id number] [place] [address] 49418- 6068 14 Oct, 2017 [place] [place] [address] [place] [address]- 7630 Oct, Bipolar disorder, current episode mixed, mild F31.61 [facility] [id number] [place] [address] 12100- 5691 Sep, Right flank pain R10.9 and Thoracic spine pain M54.6 [facility] [id number] [place] [address] 57549- 3979 Sep, Generalized anxiety disorder F41.1 and Bipolar disorder, current episode mixed, mild F31.61 [facility] [id number] [place] [address] 27945- 2877 Sep, [facility] [id number] [place] [address] 59633- 4294 Sep, Generalized anxiety disorder F41.1 ; Bipolar disorder in remission F31.70 and Personality disorder F60.9 [place] [id number] [place] [address] 61989- 9071 Sep, Spasm of thoracic back muscle M62.830 ; Type 2 diabetes mellitus without complication, without long-term current use of insulin E11.9 and Generalized anxiety disorder F41.1 [place] [id number] [place] [address] 72395- 2467 Sep, Bipolar disorder, current episode mixed, mild F31.61 and Personality disorder F60.9 [place] [address] [place] [address] 14348- 1238 Aug, [facility] [place] [id number] [place] [address] 57935- 1023 Aug, Bipolar disorder, current episode mixed, mild F31.61 and Personality disorder F60.9 [place] [id number] [place] [address] 91736- 9532 05 Aug, 2017 Type 2 diabetes mellitus without complication, without long- term current use of insulin E11.9 ; Generalized anxiety disorder F41.1 ; Bipolar disorder in remission F31.70 and Overweight (BMI 25.0-29.9) E66.3 [facility] [address] 31846- 0520 Aug, Type 2 diabetes mellitus without complication, without long- term current use of insulin E11.9 ; Elevated LDL cholesterol level E78.00 and Bipolar disorder, current episode mixed, mild F31.61 [facility] [address] 77807 -0086 Jul, Vaginal discharge N89.8 ; Skin irritation R23.8 and Dysuria R30.0 [facility] [address] 01017 -3313 Jul, Acute seasonal allergic rhinitis, unspecified trigger J30.2 and Chest pain, unspecified type R07.9 [place] [facility] [address] 89527- 7049 Jun, Bipolar disorder, current episode mixed, mild F31.61 [place] [facility] [address] 65546- 0464 Jun, [place] [address] 37132- 2105 Jun, Bipolar disorder, current episode mixed, mild F31.61 and Personality disorder F60.9 [place] [address] 58800- 6110 Jun, [facility] [address] 05263- 9946 Jun, Type 2 diabetes mellitus without complication, without long- term current use of insulin E11.9 and Dysuria R30.0 [place] [address] 60775- 5346 May, Bipolar disorder, current episode mixed, mild F31.61 ; Personality disorder F60.9 and Homeless Z59.0 [place] [address] 27406- 3217 May, Type 2 diabetes mellitus without complication, without long- term current use of insulin E11.9 [place] [id number] [place] [address] 27708- 3372 May, History of hypertension Z86.79 [place] [place] [id number] [place] [address] 27898- 9479 May, [facility] [id number] [place] [address] 04190- 8259 May, Type 2 diabetes mellitus without complication, without long- term current use of insulin E11.9 ; Elevated LDL cholesterol level E78.00 ; Low serum HDL R74.8 and Encounter for immunization Z23 [facility] [address] 87842- 9517 Apr, Encounter to establish care Z76.89 ; Abnormal CBC R79.89 ; History of hypertension Z86.79 ; Overweight (BMI 25.0-29.9) E66.3 ; Family history of diabetes insipidus Z83.49 ; Sore throat J02.9 and Tonsillitis with exudate J03.90 [facility] [id number] [place] [address] 34434- 1402 Apr, Bipolar disorder, current episode mixed, mild F31.61 [facility] [place] [id number] [place] [address] 57751- 8010 Mar, [facility] [place] [id number] [place] [address] 99016- 7640 Mar, Bipolar disorder, current episode mixed, mild F31.61 [place] [id number] [place] [address] 55756- 8458 Mar, [facility] [place] [id number] [place] [address] 26362- 4781 Mar, Bipolar disorder in remission F31.70 [facility] [place] [id number] [place] [address] 13313- 8798 Jan, [facility] [address] 69557- 7656 Jan, [facility] [id number] 0650 Oct, Generalized anxiety disorder F41.1 and Bipolar disorder in remission F31.70 [facility] [id number] [place] [address]- 1236 Oct, [facility] [address] 6796 Oct, [facility] [address] [facility] [id number] [place] [address]- 5836 Oct, [facility] [address] [place] [address]- 4536 Oct, [facility] [address] [address]- 7838 Jul, [facility] [address] [place] [address]- 6115 Jun, [facility] [id number] [address]- 9335 May, 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 and Generalized anxiety disorder F41.1 [facility] [address] [place] [address]- 5442 Jan, [facility] [address] [place] [address]- 6746 Jan, [facility] [address] [place] [address]- 2547 Jan, 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 and Generalized anxiety disorder F41.1 [facility] [address] [address]- 0406 Sep, [facility] [address] 1576 Sep, [facility] [address] [place] [address] 29235- 6619 Jul, 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 and Generalized anxiety disorder F41.1 [facility] [id number] [place] [address] 470296- 3898 Jul, Otalgia of right ear H92.01 [facility] [id number] [place] [address] 69432- 8035 Jun, [facility] [id number] [place] [address] 542097- 5008 Mar, [facility] [id number] [place] [address] 53579- 1113 Jan, [facility] [id number] [place] [address] 98353- 9431 Jan, [facility] [id number] [place] [address] 48683- 0479 Jan, Bipolar 1 disorder, mixed, moderate 296.62 and SHERRY ( generalized anxiety disorder) 300.02 [facility] [id number] [place] [address] 72443- 0651 Jan, [facility] [id number] [place] [address] 60592- 0627 Nov, [facility] [address] [place] [address] 58055- 8656 Nov, [facility] [id number] [place] [address] 83419- 2457 Oct, [facility] [address] [place] [address] 60738- 2569 Oct, [facility] [id number] [place] [address] 09268- 3797 Mar, [facility] [address] [place] [address] 86979- 9409 Mar, [facility] [id number] [place] [address] 94998- 5904 Jan, [facility] [place] [facility] [address] [id number] [place] [address]- 6121 Jan, [facility] [place] [facility] [address] [id number] [place] [address]- 3723 December, [facility] [place] [facility] [address] [id number] [place] [address]- 8320 December, [facility] [place] [facility] [address] [id number] [place] [address]- 0455 December, [facility] [place] [facility] [address] [id number] [place] [address]- 5608 December, [facility] [place] [facility] [address] [id number] [place] [address]- 2768 December, [facility] [place] [facility] [address] [id number] [place] [address]- 9383 December, [facility] [place] [facility] [address] [id number] [place] [address]- 2654 December, [facility] [place] [facility] [address] [id number] [place] [address]- 8149 December, [facility] [place] [facility] [address] [id number] [place] [address]- 9650 Nov, [facility] [place] [facility] [address] [id number] [place] [address]- 2879 Nov, [facility] [place] [facility] [address] [id number] [place] [address]- 8014 Oct, [facility] [place] [facility] [address] [id number] [place] [address]- 8776 Oct, [facility] [place] [facility] [address] [id number] [place] [address]- 6875 Oct, [facility] [place] [facility] [address] [id number] [place] [address]- 3444 Oct, [facility] [place] [facility] [address] [id number] [place] [address]- 6048 Oct, [facility] [address] [id number] [place] [address]- 1793 Sep, [facility] [place] [facility] [address] [id number] [place] [address]- 4336 Sep, [facility] [place] [facility] [address] [id number] [place] [address]- 2436 Sep, [facility] [place] [facility] [address] [id number] [place] [address]- 2860 Sep, [facility] [place] [facility] [address] [id number] [place] 6435 Aug, [facility] [place] [facility] [address] [id number] [place] [address]- 0578 Aug, [facility] [place] [facility] [address] [id number] [place] [address]- 2398 Aug, [facility] [address] [id number] [place] [address]- 8080 Aug, [facility] [place] [facility] [address] [id number] [place] [address]- 7339 Aug, [facility] [place] [facility] [address] [id number] [place] 6789 16 Jul, 2013 [facility] [place] [facility] [address] [id number] [place] [address]- 9553 Jul, [facility] [place] [facility] [address] [id number] [place] [address]- 4707 Jul, [facility] [place] [facility] [address] [id number] [place] [address]- 5637 Jul, [facility] [place] [facility] [address] [id number] [place] [address]- 2546 Jun, [facility] [place] [facility] [address] [id number] [place] [address]- 8100 Jun, [facility] [place] [facility] [address] [id number] [place] [address]- 6660 May, [facility] [place] [facility] [address] [id number] [place] [address]- 1171 May, [facility] [place] [facility] [address] [id number] [place] 1007 May, [facility] [place] [facility] [address] [id number] [place] [address]- 5331 May, [facility] [place] [facility] [address] [id number] [place] [address]- 9726 May, [facility] [place] [facility] [address] [id number] [place] [address]- 3646 May, [facility] [place] [facility] [address] [id number] [place] [address]- 6768 May, [facility] [place] [facility] [address] [id number] [place] [address]- 1394 May, [facility] [place] [facility] [address] [id number] [place] [address]- 8582 May, [facility] [place] [facility] [address] [id number], [place] [address]- 8084 Apr, [facility] [place] [facility] [address] [id number], [place] [address]- 3813 Apr, [facility] [place] [facility] [address] [id number], [place] [address]- 0115 Mar, [facility] [place] [facility] [address] [id number] [place] [address]- 3119 Mar, [facility] [place] [facility] [address] [id number] [place] [address]- 0766 Mar, [facility] [place] [facility] [address] [id number] [place] [address]- 4273 Mar, [facility] [place] [facility] [address] [id number] [place] [address]- 6788 Mar, [facility] [address] [id number] [place] [address]- 7604 Mar, [facility] [place] [facility] [address] [id number] [place] [address]- 8541 Mar, [facility] [place] [facility] [address] [id number] [place] [address]- 1716 Mar, [facility] [place] [facility] [address] [id number] [place] [address]- 4356 Mar, [facility] [place] [facility] [address] [id number] [place] [address]- 7564 Mar, [facility] [place] [facility] [address] [id number] [place] [address]- 7288 Mar, [facility] [address] [id number] [place] [address]- 3996 Jan, [facility] [place] [facility] [address] [id number] [place] [address]- 4120 Jan, [facility] [place] [facility] [address] [id number] [place] [address]- 0290 Jan, [facility] [place] [facility] [address] [id number] [place] [address]- 7794 December, [facility] [place] [facility] [address] [id number] [place] [address]- 1776 December, [facility] [place] [facility] [address] [id number] [place] [address]- 1693 Nov, [facility] [place] [facility] [address] [id number] [place] [address]- 6284 Nov, [facility] [place] [facility] [address] [id number] [place] 8269 Oct, [facility] [place] [facility] [address] [id number] [place] 9079 Oct, [facility] [place] [facility] [address] [id number] [place] [address]- 1581 21 Oct, 2012 [facility] [address] [id number] [place] [address]- 9834 20 Oct, 2012 [facility] [address] [id number] [place] [address]- 3680 19 Oct, 2012 [facility] [address] [id number] [place] [address]- 9257 19 Oct, 2012 [facility] [address] [id number] [place] [address]- 5113 17 Oct, 2012 [facility] [address] [id number] [place] [address]- 1526 16 Oct, 2012 [facility] [address] [id number] [place] [address]- 5973 14 Oct, 2012 [facility] [address] [id number] [place] [address]- 1682 13 Oct, 2012 [facility] [address] [id number] [place] [address]- 9562 05 Oct, 2012 [facility] [address] [id number] [place] [address]- 9663 14 Sep, 2012 [facility] [address] [id number] [place] [address]- 7833 08 Sep, 2012 [facility] [address] [id number] [place] [address]- 6028 Aug, [facility] [address] [id number] [place] [address]- 0444 16 Aug, 2012 [facility] [place] [facility] [address] [id number] [place] [address]- 7236 Aug, [facility] [place] [facility] [address] [id number] [place] [address]- 7331 09 Aug, 2012 [facility] [address] [id number] [place] [address]- 5569 07 Aug, 2012 [facility] [place] [facility] [address] [id number] [place] [address]- 2326 Jul, [facility] [place] [facility] [address] [id number] [place] [address]- 8046 Jul, [facility] [place] [facility] [address] [id number] [place] [address]- 5906 Jul, [facility] [place] [facility] [address] [id number] [place] [address]- 6886 19 Jul, 2012 [facility] [place] [facility] [address] [id number] [place] [address]- 6043 18 Jul, 2012 [facility] [place] [facility] [address] [id number] [place] [address]- 8322 17 Jul, 2012 [facility] [place] [facility] [address] [id number] [place] [address]- 6499 14 Jul, 2012 [facility] [place] [facility] [address] [id number] [place] [address]- 3215 14 Jul, 2012 [facility] [place] [facility] [address] [id number] [place] [address] 06 Jul, 2012 [facility] [place] [facility] [address] [id number] [place] [address] 06 Jul, 2012 [facility] [place] [facility] [address] [id number] [place] [address] 05 Jul, 2012 [facility] [place] [facility] [address] [id number] [place] [address] 05 Jul, 2012 [facility] [place] [facility] [address] [id number] [place] [address]268 04 Jul, 2012 [facility] [place] [facility] [address] [id number] [place] [address] 8632 04 Jul, 2012 [facility] [place] [facility] [address] [id number] [place] [address] 04 Jul, 2012 [facility] [place] [facility] [address] [id number] [place] [address] Jul, [facility] [place] [facility] [address] [id number] [place] [address] Jun, [facility] [place] [facility] [address] [id number] [place] [address]269 Jun, [facility] [place] [facility] [address] [id number] [place] [address] Jun, [facility] [place] [facility] [address] [id number] [place] [address] 57[address] Jun, [facility] [place] [facility] [address] [id number] [place] [address] 40[address] Jun, [facility] [place] [facility] [address] [id number] [place] [address] Jun, [facility] [place] [facility] [address] [id number] [place] [address]- 4[address] Jun, [facility] [place] [facility] [address] [id number] [place] [address]- [address] Jun, [facility] [place] [facility] [address] [id number] [place] [address]- 3698 Jun, [facility] [place] [facility] [address] [id number] [place] [address] May, [facility] [place] [facility] [address] [id number] [place] [address] Mar, [facility] [place] [facility] [address] [id number] [place] [address] Mar, [facility] [place] [facility] [address] [id number] [place] [address]- 07[address] Mar, [facility] [place] [facility] [address] [id number] [place] [address] 37[address] Mar, [facility] [place] [facility] [address] [id number] [place] [address] Jan, [facility] [place] [facility] [address] [id number] [place] [address] 245[address] Jan, [facility] [place] [facility] [address] [id number] [place] [address]265 Jan, [facility] [place] [facility] [address] [id number] [place] [address] 90[address] Jan, [facility] [place] [facility] [address] [id number] [place] [address] Jan, [facility] [place] [facility] [address] [id number] [place] [address]- 44[address] Jan, [facility] [place] [facility] [address] [id number] [place] [address] December, [facility] [place] [facility] [address] [id number] [place] [address] 39[address] December, [facility] [place] [facility] [address] [id number] [place] [address] 7966 Nov, [facility] [place] [facility] [address] [id number] [place] [address] 1376 Nov, [facility] [place] [facility] [address] [id number] [place] [address] 69[address] Oct, [facility] [place] [facility] [address] [id number] [place] [address] 4[address] Oct, [facility] [place] [facility] [address] [id number], [place] [address] Oct, [facility] [place] [facility] [address] [id number] [place] [address] Oct, [facility] [place] [facility] [address] [id number] [place] [address] 132[address] Aug, [facility] [place] [facility] [address] [id number] [place] [address] 64[address] Aug, [facility] [place] [facility] [address] [id number], [place] [address] Jun, [facility] [place] [facility] [address] [id number] [place] [address] Jun, [facility] [place] [facility] [address] [id number] [place] [address] Jun, [facility] [place] [facility] [address] [id number] [place] [address] Jun, [facility] [place] [facility] [address] [id number] [place] [address] Jun, [facility] [place] [facility] [address] [id number] [place] [address], [place] [address] May, [facility] [place] [facility] [address] [id number] [place] [address] May, [facility] [place] [facility] [address] [id number], [place] [address] May, [facility] [place] [facility] [address] [id number] [place] [address] May, [facility] [place] [facility] [address] [id number] [place] [address] May, [facility] [place] [facility] [address] [facility] [id number] [place] [address] May, [facility] [place] [facility] [address] [id number], [place] [address] May, [facility] [place] [facility] [address] [id number], [place] [address] Mar, [facility] [place] [facility] [address] [id number] [place] [address] May, [facility] [place] [facility] [address] [id number] [place] [address] Jan, [facility] [place] [facility] [address] [facility] [id number] [place] [address] Jul, [facility] [place] [facility] [id number], [place] [address] 24 Jun, 2009 [facility] [id number] [address] [address] Jun, [facility] [id number] Jun, [facility] [id number] [address] [address] Jun, [facility] [address] [address] [address] Jun, [facility] [id number] [place] [address] May, [facility] [address], [place] [address] May, [facility] [address], [place] [address] May, [facility] [id number] [address] Jul, IMMUNIZATIONS No Known Immunizations SOCIAL HISTORY Never Assessed REASON FOR VISIT Requests return call PLAN OF CARE VITAL SIGNS MEDICATIONS No [...]
--- OUTSIDE RECORDS SUMMARY | 2018-04-18 15:33 | XMS REPORT ---
Author Author WILKINSSREEKANTH Organization [facility] [place] Address [address] [place] [address] Care Team Providers Care Patrol Agent Name Role Phone SREEKANTH WILKINS Unavailable PROBLEMS Type Condition ICD9-CM Code YUR38-NI Code Onset Dates Condition Status SNOMED Code Problem History of hypertension Z86.79 Active 244808712 Problem Elevated LDL cholesterol level E78.00 Active 278895698 Problem Personality disorder F60.9 Active 43478484 Problem Other chronic pain G89.29 Active 74586945 Problem Hypoglycemia E16.2 Active 106252568 Problem Acute seasonal allergic rhinitis, unspecified trigger J30.2 Active 599951161 Problem Type 2 diabetes mellitus without complication, without long-term current use of insulin E11.9 Active 119692391 Problem Primary insomnia F51.01 Active 0452649 Problem Acute non intractable tension-type headache G44.209 Active 954303377 Problem Generalized anxiety disorder F41.1 Active 81718380 Problem Bipolar disorder in remission F31.70 Active 95010046 Problem Family history of diabetes insipidus Z83.49 Active 043857558 Problem Abnormal CBC R79.89 Active 088232405 Problem Bipolar disorder, current episode mixed, mild F31.61 Active 011253273 Problem History of diabetes mellitus Z86.39 Active 872282699 Problem Overweight (BMI 25.0-29.9) E66.3 Active 467103235 Problem Sore throat J02.9 Active 546479822 ALLERGIES No Information ENCOUNTERS Encounter Location Date Diagnosis [facility] [place] [id number] [place] [address] 99430- 8073 Jan, UTI symptoms R39.9 and Epigastric pain R10.13 [facility] [place] [id number] [place] [address] 75043- 0496 Jan, Posterior right knee pain M25.561 [facility] [place] [id number] [place] [address] 20154- 5644 Jan, Posterior right knee pain M25.561 [place] [id number] [place] [address] 41857- 1106 Jan, Scabies B86 [facility] [id number] [place] [address] 32145- 0229 Jan, Bipolar disorder, current episode mixed, mild F31.61 and Personality disorder F60.9 [place] [address] 30613- 1861 Jan, Cyst of ovary, unspecified laterality N83.209 [place] [address] [place] 895877- 7403 December, Cyst of ovary, unspecified laterality N83.209 [place] [address] 00763- 2415 December, [place] [address] 51188- 4560 December, Dysuria R30.0 [facility] [id number] [place] [address] 59009- 8767 December, [facility] [id number] [place] [address] 10665- 6733 Nov, Bipolar disorder, current episode mixed, mild F31.61 and Personality disorder F60.9 [place] [id number] [place] [address] 40589- 5861 Nov, Elevated LDL cholesterol level E78.00 and Type 2 diabetes mellitus without complication, without long-term current use of insulin E11.9 [place] [id number] [place] [address] 17307- 0235 Nov, Elevated LDL cholesterol level E78.00 and Type 2 diabetes mellitus without complication, without long-term current use of insulin E11.9 [place] [id number] [place] [address] 66001- 8631 Nov, Other chronic pain G89.29 and Pain in left leg M79.605 [place] [id number] [place] [address] 02192- 3849 02 Nov, 2017 Acute pain of left knee M25.562 ; Syncope, unspecified syncope type R55 and Hypoglycemia E16.2 [place] [id number] [place] [address] 89925- 5335 30 Oct, 2017 Syncope, unspecified syncope type R55 [facility] [place] [address] 82039- 2518 Oct, Bipolar disorder, current episode mixed, mild F31.61 and Personality disorder F60.9 [place] [address] 73579- 8937 Oct, Lump of right breast N63.10 [place] [address] 49122- 7614 Oct, Generalized anxiety disorder F41.1 [place] [address] 28196- 6791 Oct, Generalized anxiety disorder F41.1 ; Bipolar disorder in remission F31.70 ; Bipolar disorder, current episode mixed, mild F31.61 and Primary insomnia F51.01 [place] [id number] [place] [address] 46105- 7764 Oct, Primary insomnia F51.01 and Lump of right breast N63.10 [facility] [place] [id number] [place] [address] 30464- 4865 16 Oct, 2017 Enteritis K52.9 [facility] [id number] [place] [address] 36866 -4649 14 Oct, 2017 Allergic conjunctivitis of both eyes H10.13 and Acute non intractable tension-type headache G44.209 [facility] [place] [id number] [place] [address] 54276- 7248 14 Oct, 2017 [place] [address] [place] [address]- 5238 Oct, Bipolar disorder, current episode mixed, mild F31.61 [facility] [id number] [place] [address] 17683- 4727 Sep, Right flank pain R10.9 and Thoracic spine pain M54.6 [place] [id number] [place] [address] 02914- 4538 Sep, Generalized anxiety disorder F41.1 and Bipolar disorder, current episode mixed, mild F31.61 [place] [id number] [place] [address] 93876- 6662 Sep, [facility] [id number] [place] [address] 05683- 7687 Sep, Generalized anxiety disorder F41.1 ; Bipolar disorder in remission F31.70 and Personality disorder F60.9 [place] [id number] [place] [address] 28562- 5689 Sep, Spasm of thoracic back muscle M62.830 ; Type 2 diabetes mellitus without complication, without long-term current use of insulin E11.9 and Generalized anxiety disorder F41.1 [place] [id number] [place] [address] 88040- 9840 Sep, Bipolar disorder, current episode mixed, mild F31.61 and Personality disorder F60.9 [place] [id number] [place] [address] 01620- 8965 Aug, [place] [id number] [place] [address] 77447- 5153 Aug, Bipolar disorder, current episode mixed, mild F31.61 and Personality disorder F60.9 [place] [id number] [place] [address] 98108- 4884 05 Aug, 2017 Type 2 diabetes mellitus without complication, without long- term current use of insulin E11.9 ; Generalized anxiety disorder F41.1 ; Bipolar disorder in remission F31.70 and Overweight (BMI 25.0-29.9) E66.3 [place] [address] 21773- 9185 Aug, Type 2 diabetes mellitus without complication, without long- term current use of insulin E11.9 ; Elevated LDL cholesterol level E78.00 and Bipolar disorder, current episode mixed, mild F31.61 [facility] [address] 03764 -5165 Jul, Vaginal discharge N89.8 ; Skin irritation R23.8 and Dysuria R30.0 [facility] [address] 84020 -8548 Jul, Acute seasonal allergic rhinitis, unspecified trigger J30.2 and Chest pain, unspecified type R07.9 [place] [address] 25514- 4907 Jun, Bipolar disorder, current episode mixed, mild F31.61 [place] [address] 61645- 1401 Jun, [place] [address] 71633- 1218 Jun, Bipolar disorder, current episode mixed, mild F31.61 and Personality disorder F60.9 [place] [address] 21146- 4744 Jun, [place] [address] 85725- 7435 Jun, Type 2 diabetes mellitus without complication, without long- term current use of insulin E11.9 and Dysuria R30.0 [place] [address] 07776- 3428 May, Bipolar disorder, current episode mixed, mild F31.61 ; Personality disorder F60.9 and Homeless Z59.0 [place] [address] 02505- 0605 May, Type 2 diabetes mellitus without complication, without long- term current use of insulin E11.9 [place] [id number] [place] [address] 03992- 9949 May, History of hypertension Z86.79 [place] [id number] [place] [address] 81996- 3617 May, [place] [id number] [place] [address] 75245- 8970 May, Type 2 diabetes mellitus without complication, without long- term current use of insulin E11.9 ; Elevated LDL cholesterol level E78.00 ; Low serum HDL R74.8 and Encounter for immunization Z23 [place] [address] 57192- 6678 Apr, Encounter to establish care Z76.89 ; Abnormal CBC R79.89 ; History of hypertension Z86.79 ; Overweight (BMI 25.0-29.9) E66.3 ; Family history of diabetes insipidus Z83.49 ; Sore throat J02.9 and Tonsillitis with exudate J03.90 [place] [id number] [place] [address] 82066- 6483 Apr, Bipolar disorder, current episode mixed, mild F31.61 [place] [id number] [place] [address] 72634- 4793 Mar, [place] [id number] [place] [address] 89920- 6402 Mar, Bipolar disorder, current episode mixed, mild F31.61 [place] [id number] [place] [address] 32690- 5170 Mar, [place] [id number] [place] [address] 48300- 3032 Mar, Bipolar disorder in remission F31.70 [place] [id number] [place] [address] 29390- 9036 Jan, [place] [address] 81680- 1576 Jan, [facility] [place] [id number] 6926 Oct, Generalized anxiety disorder F41.1 and Bipolar disorder in remission F31.70 [facility] [place] [id number] [place] [address]- 9076 Oct, [facility] [place] [address] [address]- 5986 Oct, [facility] [place] [address] [facility] [id number] [place] [address]- 5786 Oct, [facility] [place] [address] [place] [address]- 3196 Oct, [facility] [place] [address] [address]- 3240 Jul, [facility] [place] [address] [address]- 4126 Jun, [facility] [place] [id number] [address]- 4541 May, 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 and Generalized anxiety disorder F41.1 [facility] [place] [address] [address]- 9055 Jan, [facility] [place] [address] [address]- 3076 Jan, [facility] [place] [address] [address]- 2547 Jan, 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 and Generalized anxiety disorder F41.1 [facility] [place] [address] [address]- 7376 Sep, [facility] [place] [address]- 9156 Sep, [facility] [place] [id number] [place] [address] 40620- 0238 Jul, 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 and Generalized anxiety disorder F41.1 [facility] [place] [id number] [place] [address] 751566- 8331 Jul, Otalgia of right ear H92.01 [facility] [place] [id number] [place] [address] 96102- 9153 Jun, [facility] [place] [id number] [place] [address] 295649- 1601 Mar, [facility] [place] [id number] [place] [address] 69083- 2213 Jan, [facility] [place] [id number] [place] [address] 09074- 0918 Jan, [facility] [place] [id number] [place] [address] 82656- 1824 Jan, Bipolar 1 disorder, mixed, moderate 296.62 and SHERRY ( generalized anxiety disorder) 300.02 [facility] [place] [id number] [place] [address] 12130- 5517 Jan, [facility] [place] [id number] [place] [address] 47156- 7879 Nov, [facility] [place] [id number] [place] [address] 11707- 8731 Nov, [facility] [place] [id number] [place] [address] 01546- 3884 Oct, [facility] [place] [id number] [place] [address] 35812- 9535 Oct, [facility] [place] [id number] [place] [address] 22794- 0006 Mar, [facility] [place] [id number] [place] [address] 15418- 6917 Mar, [facility] [place] [id number] [place] [address] 02195- 8320 Jan, [facility] [place] [facility] [address] [id number] [place] [address]- 6896 Jan, [facility] [place] [facility] [address] [id number] [place] [address]- 4727 December, [facility] [place] [facility] [address] [id number] [place] [address]- 8460 December, [facility] [place] [facility] [address] [id number] [place] [address]- 2519 December, [facility] [place] [facility] [address] [id number] [place] [address]- 7293 December, [facility] [place] [facility] [address] [id number] [place] [address]- 1779 December, [facility] [place] [facility] [address] [id number] [place] [address]- 9503 December, [facility] [place] [facility] [address] [id number] [place] [address]- 5396 December, [facility] [place] [facility] [address] [id number] [place] [address]- 8694 December, [facility] [place] [facility] [address] [id number] [place] [address]- 4994 Nov, [facility] [place] [facility] [address] [id number] [place] [address]- 3477 Nov, [facility] [place] [facility] [address] [id number] [place] [address]- 9164 Oct, [facility] [place] [facility] [address] [id number] [place] [address]- 9547 Oct, [facility] [place] [facility] [address] [id number] [place] [address]- 3283 Oct, [facility] [place] [facility] [address] [id number] [place] [address]- 6846 Oct, [facility] [place] [facility] [address] [id number] [place] [address]- 1686 Oct, [facility] [address] [id number] [place] [address]- 2914 Sep, [facility] [place] [facility] [address] [id number] [place] [address]- 4896 Sep, [facility] [place] [facility] [address] [id number] [place] [address]- 3836 Sep, [facility] [place] [facility] [address] [id number] [place] [address]- 8577 Sep, [facility] [place] [facility] [address] [id number] [place] 4039 Aug, [facility] [place] [facility] [address] [id number] [place] [address]- 5819 Aug, [facility] [place] [facility] [address] [id number] [place] [address]- 5524 Aug, [facility] [address] [id number] [place] [address]- 4901 Aug, [facility] [place] [facility] [address] [id number] [place] [address]- 8907 Aug, [facility] [place] [facility] [address] [id number] [place]- 7366 16 Jul, 2013 [facility] [place] [facility] [address] [id number] [place] [address]- 6571 Jul, [facility] [place] [facility] [address] [id number] [place] [address]- 9760 Jul, [facility] [place] [facility] [address] [id number] [place] [address]- 2652 Jul, [facility] [place] [facility] [address] [id number] [place] [address]- 2546 Jun, [facility] [place] [facility] [address] [id number] [place] [address]- 6659 Jun, [facility] [place] [facility] [address] [id number] [place] [address]- 7780 May, [facility] [place] [facility] [address] [id number] [place] [address]- 4515 May, [facility] [place] [facility] [address] [id number] [place] 9365 May, [facility] [place] [facility] [address] [id number] [place] [address]- 5793 May, [facility] [place] [facility] [address] [id number] [place] [address]- 4277 May, [facility] [place] [facility] [address] [id number] [place] [address]- 2662 May, [facility] [place] [facility] [address] [id number] [place] [address]- 0025 May, [facility] [place] [facility] [address] [id number] [place] [address]- 1704 May, [facility] [place] [facility] [address] [id number] [place] [address]- 7483 May, [facility] [place] [facility] [address] [id number] [address]- 8970 Apr, [facility] [place] [facility] [address] [id number] [address]- 2764 Apr, [facility] [place] [facility] [address] [id number] [address]- 3354 Mar, [facility] [place] [facility] [address] [id number] [place] [address]- 5334 Mar, [facility] [place] [facility] [address] [id number] [place] [address]- 0906 Mar, [facility] [place] [facility] [address] [id number] [place] [address]- 4365 Mar, [facility] [place] [facility] [address] [id number] [place] [address]- 3731 Mar, [facility] [address] [id number] [place] [address]- 5498 Mar, [facility] [place] [facility] [address] [id number] [place] [address]- 6256 Mar, [facility] [place] [facility] [address] [id number] [place] [address]- 3511 Mar, [facility] [place] [facility] [address] [id number] [place] [address]- 9553 Mar, [facility] [place] [facility] [address] [id number] [place] [address]- 3602 Mar, [facility] [place] [facility] [address] [id number] [place] [address]- 4648 Mar, [facility] [address] [id number] [place] [address]- 2185 Jan, [facility] [place] [facility] [address] [id number] [place] [address]- 0120 Jan, [facility] [place] [facility] [address] [id number] [place] [address]- 4665 Jan, [facility] [place] [facility] [address] [id number] [place] [address]- 2502 December, [facility] [place] [facility] [address] [id number] [place] [address]- 6276 December, [facility] [place] [facility] [address] [id number] [place] [address]- 8061 Nov, [facility] [place] [facility] [address] [id number] [place] [address]- 1835 Nov, [facility] [place] [facility] [address] [id number] [place] 6194 Oct, [facility] [place] [facility] [address] [id number] [place] 0840 Oct, [facility] [place] [facility] [address] [id number] [place] [address]- 6146 21 Oct, 2012 [facility] [address] [id number] [place] [address]- 6706 20 Oct, 2012 [facility] [address] [id number] [place] [address]- 0362 19 Oct, 2012 [facility] [address] [id number] [place] [address]- 0964 19 Oct, 2012 [facility] [address] [id number] [place] [address]- 0158 17 Oct, 2012 [facility] [address] [id number] [place] [address] 16 Oct, 2012 [facility] [address] [id number] [place] [address] 14 Oct, [address] [facility] [address] [id number] [place] [address] 13 Oct, [address] [facility] [address] [id number] [place] [address] 05 Oct, 2012 [facility] [address] [id number] [place] [address] 14 Sep, 2012 [facility] [address] [id number] [place] [address] 08 Sep, [address] [facility] [address] [id number] [place] [address] Aug, [facility] [address] [id number] [place] [address] 16 Aug, 2012 [facility] [place] [facility] [address] [id number] [place] [address] Aug, [facility] [place] [facility] [address] [id number] [place] [address] 09 Aug, 2012 [facility] [address] [id number] [place] [address] 07 Aug, 2012 [facility] [place] [facility] [address] [id number] [place] [address] Jul, [facility] [place] [facility] [address] [id number] [place] [address] Jul, [facility] [place] [facility] [address] [id number] [place] [address] Jul, [facility] [place] [facility] [address] [id number] [place] [address] 19 Jul, 2012 [facility] [place] [facility] [address] [id number] [place] [address] 18 Jul, 2012 [facility] [place] [facility] [address] [id number] [place] [address] 17 Jul, 2012 [facility] [place] [facility] [address] [id number] [place] [address] 14 Jul, 2012 [facility] [place] [facility] [address] [id number] [place] [address] 14 Jul, 2012 [facility] [place] [facility] [address] [id number] [place] [address] 06 Jul, 2012 [facility] [place] [facility] [address] [id number] [place] [address] 06 Jul, 2012 [facility] [place] [facility] [address] [id number] [place] [address] 05 Jul, 2012 [facility] [place] [facility] [address] [id number] [place] [address] 05 Jul, 2012 [facility] [place] [facility] [address] [id number] [place] [address] 04 Jul, 2012 [facility] [place] [facility] [address] [id number] [place] [address] 04 Jul, 2012 [facility] [place] [facility] [address] [id number] [place] [address] 04 Jul, 2012 [facility] [place] [facility] [address] [id number] [place] [address] Jul, [facility] [place] [facility] [address] [id number] [place] [address] Jun, [facility] [place] [facility] [address] [id number] [place] [address] Jun, [facility] [place] [facility] [address] [id number] [place] [address] Jun, [facility] [place] [facility] [address] [id number] [place] [address] Jun, [facility] [place] [facility] [address] [id number] [place] [address] Jun, [facility] [place] [facility] [address] [id number] [place] [address] Jun, [facility] [place] [facility] [address] [id number] [place] [address]- 0526 Jun, [facility] [place] [facility] [address] [id number] [place] [address] Jun, [facility] [place] [facility] [address] [id number] [place] [address] Jun, [facility] [place] [facility] [address] [id number] [place] [address] May, [facility] [place] [facility] [address] [id number] [place] [address] Mar, [facility] [place] [facility] [address] [id number] [place] [address] Mar, [facility] [place] [facility] [address] [id number] [place] [address] Mar, [facility] [place] [facility] [address] [id number] [place] [address] Mar, [facility] [place] [facility] [address] [id number] [place] [address] Jan, [facility] [place] [facility] [address] [id number] [place] [address] Jan, [facility] [place] [facility] [address] [id number] [place] [address] Jan, [facility] [place] [facility] [address] [id number] [place] [address] Jan, [facility] [place] [facility] [address] [id number] [place] [address] Jan, [facility] [place] [facility] [address] [id number] [place] [address] Jan, [facility] [place] [facility] [address] [id number] [place] [address] December, [facility] [place] [facility] [address] [id number] [place] [address] December, [facility] [place] [facility] [address] [id number] [place] [address] Nov, [facility] [place] [facility] [address] [id number] [place] [address] Nov, [facility] [place] [facility] [address] [id number] [place] [address] Oct, [facility] [place] [facility] [address] [id number] [place] [address] Oct, [facility] [place] [facility] [address] [id number] [address] Oct, [facility] [place] [facility] [address] [id number] [place] [address] Oct, [facility] [place] [facility] [address] [id number] [place] [address] Aug, [facility] [place] [facility] [address] [id number] [place] [address] Aug, [facility] [place] [facility] [address] [id number], [place] [address] Jun, [facility] [place] [facility] [address] [id number] [place] [address] Jun, [facility] [place] [facility] [address] [id number] [place] [address] Jun, [facility] [place] [facility] [address] [id number] [place] [address] Jun, [facility] [place] [facility] [address] [id number] [place] [address] Jun, [facility] [place] [facility] [id number] [place] [address], [place] [address]- [address] May, [facility] [place] [facility] [address] [id number] [place] [address] May, [facility] [place] [facility] [address] [id number], [place] [address] May, [facility] [place] [facility] [address] [id number] [place] [address] May, [facility] [place] [facility] [address] [id number] [place] [address] May, [facility] [place] [facility] [address] [facility] [id number] [place] [address] May, [facility] [place] [facility] [address] [id number], [place] [address] May, [facility] [place] [facility] [address] [id number], [place] [address] Mar, [facility] [place] [facility] [address] [id number] [place] [address] May, [facility] [place] [facility] [address] [id number] [place] [address] Jan, [facility] [place] [facility] [address] [facility] [id number] [place] [address] Jul, [facility] [place] [facility] [address] [id number] [address] 24 Jun, 2009 [facility] [place] [address] [id number], [place] [address] Jun, [facility] [place] [address] [facility] [id number], [place] [address] Jun, [facility] [place] [id number] [address] Jun, [facility] [place] [address] [facility] [id number], [place] [address] Jun, [facility] [place] [id number] [address] May, [facility] [place] [id number], [place] [address] May, [facility] [place] [id number] [address] May, [facility] [place] [address] [id number], [place] [address] Jul, IMMUNIZATIONS No Known Immunizations SOCIAL HISTORY Never Assessed REASON FOR VISIT Refill request PLAN OF CARE VITAL SIGNS MEDICATIONS Medication [...]
--- OUTSIDE RECORDS SUMMARY | 2018-04-18 15:33 | XMS REPORT ---
Author Author ARACELIS HORVATH Organization [facility] [place] Address [address] [place] [address] Care Team Providers Care Furnace Feeder Name Role Phone ALEXANDRU ARACELIS Unavailable PROBLEMS Type Condition ICD9-CM Code IHY12-VP Code Onset Dates Condition Status SNOMED Code Problem History of hypertension Z86.79 Active 429316563 Problem Elevated LDL cholesterol level E78.00 Active 168866312 Problem Personality disorder F60.9 Active 18754341 Problem Other chronic pain G89.29 Active 67811341 Problem Hypoglycemia E16.2 Active 067177990 Problem Acute seasonal allergic rhinitis, unspecified trigger J30.2 Active 032360279 Problem Type 2 diabetes mellitus without complication, without long-term current use of insulin E11.9 Active 334996673 Problem Primary insomnia F51.01 Active 3799333 Problem Acute non intractable tension-type headache G44.209 Active 954571758 Problem Generalized anxiety disorder F41.1 Active 84394752 Problem Bipolar disorder in remission F31.70 Active 83317297 Problem Family history of diabetes insipidus Z83.49 Active 566801344 Problem Abnormal CBC R79.89 Active 138495954 Problem Bipolar disorder, current episode mixed, mild F31.61 Active 636907761 Problem History of diabetes mellitus Z86.39 Active 773518636 Problem Overweight (BMI 25.0-29.9) E66.3 Active 414391486 Problem Sore throat J02.9 Active 499198766 ALLERGIES No Information ENCOUNTERS Encounter Location Date Diagnosis [facility] [place] [id number] [place] [address] 69683- 6773 Jan, UTI symptoms R39.9 and Epigastric pain R10.13 [facility] [place] [address] [address] Jan, Posterior right knee pain M25.561 [facility] [place] [id number] [place] [address] 38127- 7999 Jan, Posterior right knee pain M25.561 [place] [address] 96973- 4832 Jan, Scabies B86 [place] [id number] [place] [address] 85942- 6257 Jan, Bipolar disorder, current episode mixed, mild F31.61 and Personality disorder F60.9 [place] [address] 21887- 0887 Jan, Cyst of ovary, unspecified laterality N83.209 [place] [address] [place] 880874- 8142 December, Cyst of ovary, unspecified laterality N83.209 [place] [address] 79881- 0679 December, [place] [address] 96022- 7760 December, Dysuria R30.0 [place] [address] 32229- 5203 December, [place] [id number] [place] [address] 09716- 9862 Nov, Bipolar disorder, current episode mixed, mild F31.61 and Personality disorder F60.9 [place] [id number] [place] [address] 89973- 8005 Nov, Elevated LDL cholesterol level E78.00 and Type 2 diabetes mellitus without complication, without long-term current use of insulin E11.9 [place] [id number] [place] [address] 20106- 5741 Nov, Elevated LDL cholesterol level E78.00 and Type 2 diabetes mellitus without complication, without long-term current use of insulin E11.9 [place] [address] 63555- 4564 Nov, Other chronic pain G89.29 and Pain in left leg M79.605 [place] [id number] [place] [address] 50983- 3540 02 Nov, 2017 Acute pain of left knee M25.562 ; Syncope, unspecified syncope type R55 and Hypoglycemia E16.2 [place] [id number] [place] [address] 69031- 2654 30 Oct, 2017 Syncope, unspecified syncope type R55 [place] [address] 24836- 6045 Oct, Bipolar disorder, current episode mixed, mild F31.61 and Personality disorder F60.9 [place] [address] 53151- 7837 Oct, Lump of right breast N63.10 [place] [id number] [place] [address] 58937- 2799 Oct, Generalized anxiety disorder F41.1 [place] [id number] [place] [address] 91966- 0849 Oct, Generalized anxiety disorder F41.1 ; Bipolar disorder in remission F31.70 ; Bipolar disorder, current episode mixed, mild F31.61 and Primary insomnia F51.01 [place] [id number] [place] [address] 76981- 8005 Oct, Primary insomnia F51.01 and Lump of right breast N63.10 [place] [id number] [place] [address] 10245- 6703 16 Oct, 2017 Enteritis K52.9 [facility] [id number] [place] [address] 08222 -1493 14 Oct, 2017 Allergic conjunctivitis of both eyes H10.13 and Acute non intractable tension-type headache G44.209 [place] [id number] [place] [address] 41374- 6883 14 Oct, 2017 [place] [address] [id number] [place] [address]- 7725 Oct, Bipolar disorder, current episode mixed, mild F31.61 [place] [address] 74381- 8241 Sep, Right flank pain R10.9 and Thoracic spine pain M54.6 [place] [id number] [place] [address] 32205- 2839 Sep, Generalized anxiety disorder F41.1 and Bipolar disorder, current episode mixed, mild F31.61 [place] [id number] [place] [address] 07182- 0916 Sep, [place] [id number] [place] [address] 51272- 3726 Sep, Generalized anxiety disorder F41.1 ; Bipolar disorder in remission F31.70 and Personality disorder F60.9 [place] [id number] [place] [address] 71551- 1016 Sep, Spasm of thoracic back muscle M62.830 ; Type 2 diabetes mellitus without complication, without long-term current use of insulin E11.9 and Generalized anxiety disorder F41.1 [place] [id number] [place] [address] 05935- 4367 Sep, Bipolar disorder, current episode mixed, mild F31.61 and Personality disorder F60.9 [place] [id number] [place] [address] 39407- 4053 Aug, [place] [id number] [place] [address] 49040- 7506 Aug, Bipolar disorder, current episode mixed, mild F31.61 and Personality disorder F60.9 [place] [address] [place] [address] 5813 Aug, Type 2 diabetes mellitus without complication, without long- term current use of insulin E11.9 ; Generalized anxiety disorder F41.1 ; Bipolar disorder in remission F31.70 and Overweight (BMI 25.0-29.9) E66.3 [place] [address] 03496- 4550 Aug, Type 2 diabetes mellitus without complication, without long- term current use of insulin E11.9 ; Elevated LDL cholesterol level E78.00 and Bipolar disorder, current episode mixed, mild F31.61 [facility] WALK IN [facility] [address] 73960 -1557 Jul, Vaginal discharge N89.8 ; Skin irritation R23.8 and Dysuria R30.0 [facility] [address] 01189 -3556 Jul, Acute seasonal allergic rhinitis, unspecified trigger J30.2 and Chest pain, unspecified type R07.9 [place] [address] 36360- 8182 Jun, Bipolar disorder, current episode mixed, mild F31.61 [place] [address] 96126- 3808 Jun, [place] [address] 55049- 1198 Jun, Bipolar disorder, current episode mixed, mild F31.61 and Personality disorder F60.9 [place] [address] 22489- 3933 Jun, [place] [address] 01045- 4369 Jun, Type 2 diabetes mellitus without complication, without long- term current use of insulin E11.9 and Dysuria R30.0 [place] [address] 84980- 6625 May, Bipolar disorder, current episode mixed, mild F31.61 ; Personality disorder F60.9 and Homeless Z59.0 [place] [address] 05886- 0462 May, Type 2 diabetes mellitus without complication, without long- term current use of insulin E11.9 [place] [id number] [place] [address] 08077- 1361 May, History of hypertension Z86.79 [place] [id number] [place] [address] 85180- 8843 May, [place] [address] 73308- 1386 May, Type 2 diabetes mellitus without complication, without long- term current use of insulin E11.9 ; Elevated LDL cholesterol level E78.00 ; Low serum HDL R74.8 and Encounter for immunization Z23 [place] [address] 80991- 7696 Apr, Encounter to establish care Z76.89 ; Abnormal CBC R79.89 ; History of hypertension Z86.79 ; Overweight (BMI 25.0-29.9) E66.3 ; Family history of diabetes insipidus Z83.49 ; Sore throat J02.9 and Tonsillitis with exudate J03.90 [place] [address] 01294- 3163 Apr, Bipolar disorder, current episode mixed, mild F31.61 [place] [id number] [place] [address] 41470- 2766 Mar, [place] [id number] [place] [address] 36187- 7181 Mar, Bipolar disorder, current episode mixed, mild F31.61 [place] [id number] [place] [address] 76876- 6412 Mar, [address] 48083- 5335 Mar, Bipolar disorder in remission F31.70 [place] [id number] [place] [address] 76399- 3082 Jan, [place] [address] [place] [address] 2546 Jan, [facility] [place] [address] [facility] [id number] [place] [address]- 7536 Oct, Generalized anxiety disorder F41.1 and Bipolar disorder in remission F31.70 [facility] [place] [id number] [place] [address] 2546 Oct, [facility] [place] [address] [place] [address]- 5876 Oct, [facility] [place] [address] [facility] [id number] [place] [address]- 7216 Oct, [facility] [place] [address] [place] [address]- 0506 Oct, [facility] [place] [address] [place] [address]- 3056 Jul, [facility] [place] [address] [address]- 6746 Jun, [facility] [place] [id number] 3146 May, 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 and Generalized anxiety disorder F41.1 [facility] [place] [address] [address]- 2376 Jan, [facility] [place] [address] [address] 2546 Jan, [facility] [place] [id number] [address] 2546 Jan, 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 and Generalized anxiety disorder F41.1 [facility] [place] [address] [address] 2546 Sep, [facility] [place] [id number] [address] 2546 Sep, [facility] [place] [address] [place] [address] 45529- 5971 Jul, 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 and Generalized anxiety disorder F41.1 [facility] [place] [id number] [place] [address] 40578- 1154 Jul, Otalgia of right ear H92.01 [facility] [place] [id number] [place] [address] 84408- 3923 Jun, [facility] [place] [id number] [place] [address] 052693- 3411 Mar, [facility] [place] [id number] [place] [address] 91914- 9749 Jan, [facility] [place] [id number] [place] [address] 20102- 2702 Jan, [facility] [place] [id number] [place] [address] 77497- 6420 Jan, Bipolar 1 disorder, mixed, moderate 296.62 and SHERRY ( generalized anxiety disorder) 300.02 [facility] [place] [id number] [place] [address] 78959- 5391 Jan, [facility] [place] [id number] [place] [address] 23537- 2086 Nov, [facility] [place] [id number] [place] [address] 11060- 0268 Nov, [facility] [place] [id number] [place] [address] 48361- 9604 Oct, [facility] [place] [id number] [place] [address] 38417- 5704 Oct, [facility] [place] [id number] [place] [address] 32204- 7542 Mar, [facility] [place] [id number] [place] [address] 38299- 9072 Mar, [facility] [place] [id number] [place] [address] 64391- 5825 Jan, [facility] [place] [facility] [address] [id number] [place] [address]- 5206 Jan, [facility] [place] [facility] [address] [id number] [place] [address]- 7464 December, [facility] [place] [facility] [address] [id number] [place] [address]- 7707 December, [facility] [place] [facility] [address] [id number] [place] [address]- 0353 December, [facility] [place] [facility] [address] [id number] [place] [address]- 7494 December, [facility] [place] [facility] [address] [id number] [place] [address]- 6448 December, [facility] [place] [facility] [address] [id number] [place] [address]- 6013 December, [facility] [place] [facility] [address] [id number] [place] [address]- 4454 December, [facility] [place] [facility] [address] [id number] [place] [address]- 0402 December, [facility] [place] [facility] [address] [id number] [place] [address]- 4006 Nov, [facility] [place] [facility] [address] [id number] [place] [address]- 1254 Nov, [facility] [place] [facility] [address] [id number] [place] [address]- 9224 Oct, [facility] [place] [facility] [address] [id number] [place] [address]- 5618 Oct, [facility] [place] [facility] [address] [id number] [place] [address]- 4252 Oct, [facility] [place] [facility] [address] [id number] [place] [address]- 5839 Oct, [facility] [place] [facility] [address] [id number] [place] [address]- 0592 Oct, [facility] [place] [facility] [address] [id number] [place] [address]- 5410 Sep, [facility] [place] [facility] [address] [id number] [place] 1046 Sep, [facility] [place] [facility] [address] [id number] [place] [address]- 2106 Sep, [facility] [place] [facility] [address] [id number] [place] [address]- 5737 Sep, [facility] [place] [facility] [address] [id number] [place] [address]- 2493 Aug, [facility] [place] [facility] [address] [id number] [place] [address]- 6558 Aug, [facility] [place] [facility] [address] [id number] [place] [address]- 3634 Aug, [facility] [place] [facility] [address] [id number] [place] [address]- 1699 Aug, [facility] [place] [facility] [address] [id number] [place] [address]- 2450 Aug, [facility] [place] [facility] [address] [id number] [place] [address]- 5832 16 Jul, 2013 [facility] [place] [facility] [address] [id number] [place] [address]- 6709 Jul, [facility] [place] [facility] [address] [id number] [place] [address]- 0623 Jul, [facility] [place] [facility] [address] [id number] [place] [address]- 3806 Jul, [facility] [place] [facility] [address] [id number] [place] [address]- 1586 Jun, [facility] [place] [facility] [address] [id number] [place] [address]- 0700 Jun, [facility] [place] [facility] [address] [id number] [place] [address]- 4209 May, [facility] [place] [facility] [address] [id number] [place] [address]- 8764 May, [facility] [place] [facility] [address] [id number] [place] [address]- 6516 May, [facility] [place] [facility] [address] [id number] [place] [address]- 3567 May, [facility] [place] [facility] [address] [id number] [place] [address]- 0226 May, [facility] [place] [facility] [address] [id number] [place] [address]- 7414 May, [facility] [place] [facility] [address] [id number] [place] [address]- 1031 May, [facility] [place] [facility] [address] [id number] [place] [address]- 8459 May, [facility] [place] [facility] [address] [id number] [place] [address]- 6349 May, [facility] [place] [facility] [address] [id number] [place] [address]- 2589 Apr, [facility] [place] [facility] [address] [id number] [address]- 3997 Apr, [facility] [place] [facility] [address] [id number] [address]- 4440 Mar, [facility] [place] [facility] [address] [id number] [place] [address]- 4346 Mar, [facility] [place] [facility] [address] [id number] [place] [address]- 2653 Mar, [facility] [place] [facility] [address] [id number] [place] [address]- 9603 Mar, [facility] [place] [facility] [address] [id number] [place] [address]- 1042 Mar, [facility] [address] [id number] [place] [address]- 5390 Mar, [facility] [place] [facility] [address] [id number] [place] 5359 Mar, [facility] [address] [id number] [place] [address]- 7222 Mar, [facility] [place] [facility] [address] [id number] [place] [address]- 2039 Mar, [facility] [place] [facility] [address] [id number] [place] [address]- 5542 Mar, [facility] [place] [facility] [address] [id number] [place] [address]- 5279 Mar, [facility] [address] [id number] [place] [address]- 9405 Jan, [facility] [place] [facility] [address] [id number] [place] [address]- 2444 Jan, [facility] [place] [facility] [address] [id number] [place] [address]- 6474 Jan, [facility] [place] [facility] [address] [id number] [place] [address]- 3881 December, [facility] [place] [facility] [address] [id number] [place] [address]- 3234 December, [facility] [place] [facility] [address] [id number] [place] [address]- 8792 Nov, [facility] [place] [facility] [address] [id number] [place] [address]- 2470 Nov, [facility] [place] [facility] [address] [id number] [place] 8884 Oct, [facility] [place] [facility] [address] [id number] [place] [address]- 6271 Oct, [facility] [place] [facility] [address] [id number] [place] [address]- 1486 21 Oct, 2012 [facility] [address] [id number] [place] 1599 20 Oct, 2012 [facility] [address] [id number] [place] 0976 19 Oct, 2012 [facility] [address] [id number] [place] [address]- 3524 19 Oct, 2012 [facility] [address] [id number] [place] [address]- 2237 17 Oct, 2012 [facility] [address] [id number] [place] [address]- 1249 16 Oct, 2012 [facility] [address] [id number] [place] [address]- 4188 14 Oct, 2012 [facility] [address] [id number] [place] [address]- 3574 13 Oct, 2012 [facility] [address] [id number] [place] [address] 05 Oct, 2012 [facility] [address] [id number] [place] [address] 14 Sep, 2012 [facility] [address] [id number] [place] [address] 08 Sep, 2012 [facility] [address] [id number] [place] [address] Aug, [facility] [address] [id number] [place] [address] 16 Aug, 2012 [facility] [place] [facility] [address] [id number] [place] [address] Aug, [facility] [address] [id number] [place] [address] 09 Aug, 2012 [facility] [address] [id number] [address] 07 Aug, 2012 [facility] [address] [id number] [place] [address] Jul, [facility] [place] [facility] [address] [id number] [place] [address] Jul, [facility] [address] [id number] [place] [address] Jul, [facility] [place] [facility] [address] [id number] [place] [address] 8469 19 Jul, 2012 [facility] [address] [id number] [place] [address] 18 Jul, 2012 [facility] [address] [id number] [place] [address] 74[address] 17 Jul, 2012 [facility] [address] [id number] [place] [address] 14 Jul, 2012 [facility] [place] [facility] [address] [id number] [place] [address] 14 Jul, 2012 [facility] [address] [id number] [place] [address] 85[address] 06 Jul, 2012 [facility] [place] [facility] [address] [id number] [place] [address]- [address]27 06 Jul, 2012 [facility] [place] [facility] [address] [id number] [place] [address] 05 Jul, 2012 [facility] [place] [facility] [address] [id number] [place] [address]- 6[address] 05 Jul, 2012 [facility] [place] [facility] [address] [id number] [place] [address]- 1481 04 Jul, 2012 [facility] [place] [facility] [address] [id number] [place] [address] 04 Jul, 2012 [facility] [place] [facility] [address] [id number] [place] [address] 04 Jul, 2012 [facility] [place] [facility] [address] [id number] [place] [address] Jul, [facility] [place] [facility] [address] [id number] [place] [address] Jun, [facility] [place] [facility] [address] [id number] [place] [address] Jun, [facility] [place] [facility] [address] [id number] [place] [address] Jun, [facility] [place] [facility] [address] [id number] [place] [address] Jun, [facility] [place] [facility] [address] [id number] [place] [address] Jun, [facility] [place] [facility] [address] [id number] [place] [address] Jun, [facility] [place] [facility] [address] [id number] [place] [address] Jun, [facility] [place] [facility] [address] [id number] [place] [address] Jun, [facility] [place] [facility] [address] [id number] [place] [address] Jun, [facility] [place] [facility] [address] [id number] [place] [address] May, [facility] [place] [facility] [address] [id number] [place] [address] Mar, [facility] [place] [facility] [address] [id number] [place] [address] Mar, [facility] [place] [facility] [address] [id number] [place] [address] Mar, [facility] [place] [facility] [address] [id number] [place] [address] Mar, [facility] [place] [facility] [address] [id number] [place] [address] Jan, [facility] [place] [facility] [address] [id number] [place] [address] Jan, [facility] [place] [facility] [address] [id number] [place] [address] Jan, [facility] [place] [facility] [address] [id number] [place] [address] Jan, [facility] [place] [facility] [address] [id number] [place] [address] Jan, [facility] [place] [facility] [address] [id number] [place] [address] Jan, [facility] [place] [facility] [address] [id number] [place] [address] December, [facility] [place] [facility] [address] [id number] [place] [address] December, [facility] [place] [facility] [address] [id number] [place] [address] Nov, [facility] [place] [facility] [address] [id number] [place] [address] Nov, [facility] [place] [facility] [address] [id number] [place] [address] Oct, [facility] [place] [facility] [address] [id number] [place] [address] Oct, [facility] [place] [facility] [address] [id number] [place] [address] Oct, [facility] [place] [facility] [address] [id number] [place] [address] Oct, [facility] [place] [facility] [address] [id number] [place] [address] Aug, [facility] [place] [facility] [address] [id number] [place] [address] Aug, [facility] [place] [facility] [address] [id number] [place] [address] Jun, [facility] [place] [facility] [address] [id number] [place] [address] Jun, [facility] [place] [facility] [address] [id number] [place] [address] Jun, [facility] [place] [facility] [address] [id number] [place] [address] Jun, [facility] [place] [facility] [address] [id number] [place] [address] Jun, [facility] [place] [facility] [address] [id number] [place] [address] May, [facility] [place] [facility] [address] [id number] [place] [address] May, [facility] [place] [facility] [address] [id number] [place] [address] May, [facility] [place] [facility] [address] [id number] [place] [address] May, [facility] [place] [facility] [address] [id number] [place] [address] May, [facility] [place] [facility] [address] [id number] [place] [address] May, [facility] [place] [facility] [address] [id number] [place] [address] May, [facility] [place] [facility] [address] [id number] [place] [address] Mar, [facility] [place] [facility] [address] [id number] [place] [address] May, [facility] [place] [facility] [address] [id number] [place] [address] Jan, [facility] [place] [facility] [address] [id number] [place] [address] Jul, [facility] [place] [facility] [id number] [address] Jun, [facility] [place] [id number] [address] Jun, [facility] [place] [id number] [address] Jun, [facility] [place] [id number] [place] [address] Jun, [facility] [place] [id number] [address] Jun, [facility] [place] [id number] [place] [address] May, [facility] [place] [id number] [address] May, [facility] [place] [id number] [address] May, [facility] [place] [id number] [address] Jul, IMMUNIZATIONS No Known Immunizations SOCIAL HISTORY Never Assessed REASON FOR VISIT f/u [facility] [employer] [facility] Activity Details Follow Up prn, 3 Months Reason: VITAL SIGNS Height 62 in 2017-11-24 Weight 167 lbs 2017-11-24 Heart Rate 84 bpm 2017-11-24 Respiratory Rate 18 2017-11-24 BMI 30.54 kg/m2 2017-11-24 Blood pressure systolic 122 mmHg 2017-11-24 Blood pressure diastolic 78 mmHg 2017-11-24 MEDICATIONS Medication Instructions Dosage Frequency Start Date End Date Duration Status Aspir-81 81 MG Orally Once a day 1 tablet 24h Apr, Jan, 90 days Active Glucocard Expression Test 1 subcutaneously 2 times a day test 2 times per day 12h 02 May, 2017 12 months Active Amitriptyline HCl 25 MG Orally at bedtime 1 tablet Nov, 30 day(s) Active Azelastine HCl 0.05 % Ophthalmic Twice a day 1 drop into affected eye 12h Oct, Active Abilify 10 MG Orally Once a day at bedtime 1 tablet 30 days Active Atorvastatin Calcium 10 mg Orally Once a day 1 tablet 24h May, 90 days Active Tramadol HCl 50 mg Orally 2 times a day 1 tablet as needed 12h Nov, Not-Taking Glimepiride 1 MG Orally Once a day [...]
--- OUTSIDE RECORDS SUMMARY | 2018-04-18 15:34 | XMS REPORT ---
Author Author HANK COLE Organization [facility] Address [address] [place] [address] Care Team Providers Care Partner Integration Planner Name Role Phone HANK COLE Unavailable PROBLEMS Type Condition ICD9-CM Code KCN43-KG Code Onset Dates Condition Status SNOMED Code Problem History of hypertension Z86.79 Active 243717894 Problem Elevated LDL cholesterol level E78.00 Active 734319529 Problem Personality disorder F60.9 Active 85865854 Problem Other chronic pain G89.29 Active 27856566 Problem Hypoglycemia E16.2 Active 480360644 Problem Acute seasonal allergic rhinitis, unspecified trigger J30.2 Active 069203100 Problem Type 2 diabetes mellitus without complication, without long-term current use of insulin E11.9 Active 958049614 Problem Primary insomnia F51.01 Active 1479444 Problem Acute non intractable tension-type headache G44.209 Active 132404265 Problem Generalized anxiety disorder F41.1 Active 24261216 Problem Bipolar disorder in remission F31.70 Active 25418257 Problem Family history of diabetes insipidus Z83.49 Active 618981603 Problem Abnormal CBC R79.89 Active 814144648 Problem Bipolar disorder, current episode mixed, mild F31.61 Active 429310029 Problem History of diabetes mellitus Z86.39 Active 376964576 Problem Overweight (BMI 25.0-29.9) E66.3 Active 446479972 Problem Sore throat J02.9 Active 795563328 ALLERGIES Substance Reaction Event Type Date Status MetFORMIN HCl ER nausea Drug Allergy Nov, Active Zyprexa rash Drug Allergy Nov, Active Cipro rash Drug Allergy Nov, Active ENCOUNTERS Encounter Location Date Diagnosis [facility] [id number] [address] Jan, UTI symptoms R39.9 and Epigastric pain R10.13 [facility] [id number] [address] 3879 Jan, Posterior right knee pain M25.561 [facility] [id number] [place] [address] 50746- 1884 Jan, Posterior right knee pain M25.561 [facility] [id number] [place] [address] 77821- 5117 Jan, Scabies B[address] [place] [address] [address]- 9163 Jan, Bipolar disorder, current episode mixed, mild F31.61 and Personality disorder F60.9 [place] [id number] [place] [address] 61787- 2408 Jan, Cyst of ovary, unspecified laterality N83.209 [place] [id number] [place] [address] 70749- 1466 December, Cyst of ovary, unspecified laterality N83.209 [place] [id number] [place] [address] 64589- 8963 December, [place] [id number] [place] [address] 46272- 2266 December, Dysuria R30.0 [place] [id number] [place] [address] 33110- 8998 December, [place] [id number] [place] [address] 27323- 6484 Nov, Bipolar disorder, current episode mixed, mild F31.61 and Personality disorder F60.9 [facility] [id number] [place] [address] 43271- 0778 Nov, Elevated LDL cholesterol level E78.00 and Type 2 diabetes mellitus without complication, without long-term current use of insulin E11.9 [facility] [id number] [place] [address] 88616- 7423 Nov, Elevated LDL cholesterol level E78.00 and Type 2 diabetes mellitus without complication, without long-term current use of insulin E11.9 [place] [id number] [place] [address] 04720- 6068 04 Nov, 2017 Other chronic pain G89.29 and Pain in left leg M79.605 [place] [id number] [place] [address] 14733- 1822 02 Nov, 2017 Acute pain of left knee M25.562 ; Syncope, unspecified syncope type R55 and Hypoglycemia E16.2 [place] [id number] [place] [address] 24856- 7271 Oct, Syncope, unspecified syncope type R55 [place] [address] 38897- 7842 Oct, Bipolar disorder, current episode mixed, mild F31.61 and Personality disorder F60.[address] [address]- 3740 Oct, Lump of right breast N63.10 [place] [id number] [place] [address] 32203- 0504 Oct, Generalized anxiety disorder F41.[address] 56268- 1825 Oct, Generalized anxiety disorder F41.1 ; Bipolar disorder in remission F31.70 ; Bipolar disorder, current episode mixed, mild F31.61 and Primary insomnia F51.01 [place] [id number] [place] [address] 19082- 8162 Oct, Primary insomnia F51.01 and Lump of right breast N63.10 [place] [id number] [place] [address] 90149- 4746 16 Oct, 2017 Enteritis K52.9 [facility] [id number] [place] [address] 27050 -5698 14 Oct, 2017 Allergic conjunctivitis of both eyes H10.13 and Acute non intractable tension-type headache G44.209 [place] [address] [place] [address]- 1586 Oct, [facility] [id number] [place] [address] 33355- 4715 Oct, Bipolar disorder, current episode mixed, mild F31.61 [facility] [id number] [place] [address] 43754- 5483 22 Sep, 2017 Right flank pain R10.9 and Thoracic spine pain M54.6 [place] [id number] [place] [address] 19912- 8237 16 Sep, 2017 Generalized anxiety disorder F41.1 and Bipolar disorder, current episode mixed, mild F31.61 [place] [id number] [place] [address] 29741- 6152 Sep, [place] [id number] [place] [address] 05246- 2821 Sep, Generalized anxiety disorder F41.1 ; Bipolar disorder in remission F31.70 and Personality disorder F60.9 [place] [id number] [place] [address] 03116- 1030 Sep, Spasm of thoracic back muscle M62.830 ; Type 2 diabetes mellitus without complication, without long-term current use of insulin E11.9 and Generalized anxiety disorder F41.1 [place] [id number] [place] [address] 23276- 9974 Sep, Bipolar disorder, current episode mixed, mild F31.61 and Personality disorder F60.9 [place] [id number] [place] [address] 00000- 7137 Aug, [place] [id number] [place] [address] 28437- 6190 Aug, Bipolar disorder, current episode mixed, mild F31.61 and Personality disorder F60.9 [place] [id number] [place] [address] 26217- 1925 Aug, Type 2 diabetes mellitus without complication, without long- term current use of insulin E11.9 ; Generalized anxiety disorder F41.1 ; Bipolar disorder in remission F31.70 and Overweight (BMI 25.0-29.9) E66.3 [place] [address] 13561- 1060 Aug, Type 2 diabetes mellitus without complication, without long- term current use of insulin E11.9 ; Elevated LDL cholesterol level E78.00 and Bipolar disorder, current episode mixed, mild F31.61 [facility] [place] [address] 98928 -6360 Jul, Vaginal discharge N89.8 ; Skin irritation R23.8 and Dysuria R30.0 [facility] [place] [address] 33168 -9376 Jul, Acute seasonal allergic rhinitis, unspecified trigger J30.2 and Chest pain, unspecified type R07.[address] 01684- 4637 Jun, Bipolar disorder, current episode mixed, mild F31.61 [place] [address] 27542- 9348 Jun, [place] [address] 40634- 6664 Jun, Bipolar disorder, current episode mixed, mild F31.61 and Personality disorder F60.9 [place] [address] 84518- 8919 Jun, [place] [address] 40591- 3291 Jun, Type 2 diabetes mellitus without complication, without long- term current use of insulin E11.9 and Dysuria R30.0 [place] [address] 64747- 5746 May, Bipolar disorder, current episode mixed, mild F31.61 ; Personality disorder F60.9 and Homeless Z59.0 [place] [id number] [place] [address] 35178- 4547 May, Type 2 diabetes mellitus without complication, without long- term current use of insulin E11.9 [place] [id number] [place] [address] 51791- 9043 May, History of hypertension Z86.[address] 14456- 9521 May, [place] [id number] [place] [address] 19974- 0839 May, Type 2 diabetes mellitus without complication, without long- term current use of insulin E11.9 ; Elevated LDL cholesterol level E78.00 ; Low serum HDL R74.8 and Encounter for immunization Z23 [place] [id number] [place] [address] 15610- 9645 Apr, Encounter to establish care Z76.89 ; Abnormal CBC R79.89 ; History of hypertension Z86.79 ; Overweight (BMI 25.0-29.9) E66.3 ; Family history of diabetes insipidus Z83.49 ; Sore throat J02.9 and Tonsillitis with exudate J03.90 [place] [id number] [place] [address] 41057- 3634 Apr, Bipolar disorder, current episode mixed, mild F31.61 [place] [id number] [place] [address] 62310- 3424 Mar, [place] [address] [id number] [place] [address] 97246- 5036 Mar, Bipolar disorder, current episode mixed, mild F31.61 [place] [address] 39551- 5702 Mar, [place] [id number] [place] [address] 10511- 5097 Mar, Bipolar disorder in remission F31.70 [place] [address] 53443- 8206 Jan, [facility] [address] [address]- 4389 Jan, [facility] [address] [address]- 7606 Oct, Generalized anxiety disorder F41.1 and Bipolar disorder in remission F31.70 [facility] [id number] [place] [address] 02644- 0166 Oct, [facility] [id number] 2426 Oct, [facility] [id number] [place] 5086 Oct, [facility] [address] [address]- 0036 Oct, [facility] [address] [address]- 8090 Jul, [facility] [address] [address] Jun, [facility] [address] [address]- 0344 May, 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 and Generalized anxiety disorder F41.1 [facility] [address] [address]- 5916 Jan, [facility] [address] [address] 2546 Jan, [facility] [id number] [address]- 0594 Jan, 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 and Generalized anxiety disorder F41.1 [facility] [address] [address]- 9976 Sep, [facility] [id number] [place] [address] 34926- 5782 Sep, [facility] [id number] [place] [address] 461724- 1554 Jul, 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 and Generalized anxiety disorder F41.1 [facility] [id number] [place] [address] 33026- 9584 Jul, Otalgia of right ear H92.01 [facility] [id number] [place] [address] 24204- 2471 Jun, [facility] [id number] [place] [address] 77036- 4257 Mar, [facility] [id number] [place] [address] 73359- 2316 Jan, [facility] [id number] [place] [address] 54925- 4371 Jan, [facility] [id number] [place] [address] 65976- 8772 Jan, Bipolar 1 disorder, mixed, moderate 296.62 and SHERRY ( generalized anxiety disorder) 300.02 [facility] [id number] [place] [address] 39433- 3993 Jan, [facility] [id number] [place] [address] 46823- 9866 Nov, [facility] [id number] [place] [address] 67575- 7202 Nov, [facility] [id number] [place] [address] 13361- 2729 Oct, [facility] [id number] [place] [address] 95501- 8050 Oct, [facility] [id number] [place] [address] 92651- 8898 Mar, [facility] [id number] [place] [address] 63874- 9996 Mar, [facility] [place] [facility] [address] [id number] [place] [address]- 1929 Jan, [facility] [place] [facility] [address] [id number] [place] [address]- 6258 Jan, [facility] [place] [facility] [address] [id number] [place] [address]- 9457 December, [facility] [place] [facility] [address] [id number] [place] [address]- 7752 December, [facility] [place] [facility] [address] [id number] [place] [address]- 0371 December, [facility] [place] [facility] [address] [id number] [place] [address]- 7550 December, [facility] [place] [facility] [address] [id number] [place] [address]- 1924 December, [facility] [place] [facility] [address] [id number] [place] [address]- 7848 December, [facility] [place] [facility] [address] [id number] [place] [address]- 3361 December, [facility] [place] [facility] [address] [id number] [place] [address]- 9458 December, [facility] [place] [facility] [address] [id number] [place] [address]- 9413 Nov, [facility] [place] [facility] [address] [id number] [place] [address]- 5841 Nov, [facility] [place] [facility] [address] [id number] [place] [address]- 2663 Oct, [facility] [place] [facility] [address] [id number] [place] [address]- 3259 Oct, [facility] [place] [facility] [address] [id number] [place] [address]- 7340 Oct, [facility] [place] [facility] [address] [id number] [place] [address]- 0435 Oct, [facility] [address] [id number] [place] [address]- 9536 Oct, [facility] [place] [facility] [address] [id number] [place] [address]- 0176 Sep, [facility] [place] [facility] [address] [id number] [place] [address]- 7936 Sep, [facility] [place] [facility] [address] [id number] [place] [address]- 0349 Sep, [facility] [place] [facility] [address] [id number] [place] 9036 Sep, [facility] [place] [facility] [address] [id number] [place] [address]- 9213 Aug, [facility] [place] [facility] [address] [id number] [place] [address]- 3540 Aug, [facility] [place] [facility] [address] [id number] [place] [address]- 6144 Aug, [facility] [place] [facility] [address] [id number] [place] [address]- 9575 Aug, [facility] [place] [facility] [address] [id number] [place] [address]- 6635 Aug, [facility] [place] [facility] [address] [id number] [place] [address]- 3737 16 Jul, 2013 [facility] [place] [facility] [address] [id number] [place] [address]- 5432 16 Jul, 2013 [facility] [place] [facility] [address] [id number] [place] [address]- 6796 Jul, [facility] [place] [facility] [address] [id number] [place] [address]- 4246 Jul, [facility] [place] [facility] [address] [id number] [place] [address]- 5652 Jun, [facility] [place] [facility] [address] [id number] [place] [address]- 6641 Jun, [facility] [place] [facility] [address] [id number] [place] [address]- 6383 May, [facility] [place] [facility] [address] [id number] [place] [address]- 2699 May, [facility] [place] [facility] [address] [id number] [place] [address]- 2524 May, [facility] [place] [facility] [address] [id number] [place] [address]- 1065 May, [facility] [place] [facility] [address] [id number] [place] [address]- 1506 May, [facility] [place] [facility] [address] [id number] [place] [address]- 4902 May, [facility] [place] [facility] [address] [id number] [place] [address]- 9255 May, [facility] [place] [facility] [address] [id number] [place] [address]- 2332 May, [facility] [place] [facility] [address] [id number] [place] [address]- 8326 May, [facility] [place] [facility] [address] [id number] [address]- 3381 Apr, [facility] [place] [facility] [address] [id number] [place] [address]- 0946 Apr, [facility] [place] [facility] [address] [id number] [place] [address]- 3526 Mar, [facility] [place] [facility] [address] [id number] [place] [address]- 9072 Mar, [facility] [place] [facility] [address] [id number] [place] [address]- 8077 Mar, [facility] [place] [facility] [address] [id number] [place] [address]- 5166 Mar, [facility] [address] [id number] [place] [address]- 9762 Mar, [facility] [place] [facility] [address] [id number] [place] [address]- 5733 Mar, [facility] [place] [facility] [address] [id number] [place] [address]- 2857 Mar, [facility] [place] [facility] [address] [id number] [place] [address]- 8270 Mar, [facility] [place] [facility] [address] [id number] [place] [address]- 4042 Mar, [facility] [place] [facility] [address] [id number] [place] [address]- 9367 Mar, [facility] [address] [id number] [place] [address]- 9472 Mar, [facility] [place] [facility] [address] [id number] [place] [address]- 1415 Jan, [facility] [place] [facility] [address] [id number] [place] [address]- 4174 Jan, [facility] [place] [facility] [address] [id number] [place] [address]- 7894 Jan, [facility] [place] [facility] [address] [id number] [place] [address]- 4536 December, [facility] [place] [facility] [address] [id number] [place] [address]- 6338 December, [facility] [place] [facility] [address] [id number] [place] [address]- 3480 Nov, [facility] [place] [facility] [address] [id number] [place] [address]- 9794 Nov, [facility] [place] [facility] [address] [id number] [place] [address]- 1874 Oct, [facility] [place] [facility] [address] [id number] [place] [address]- 0046 26 Oct, 2012 [facility] [address] [id number] [place] [address]- 8186 21 Oct, 2012 [facility] [address] [id number] [place] [address]- 8647 20 Oct, 2012 [facility] [address] [id number] [place] [address]- 9387 19 Oct, 2012 [facility] [address] [id number] [place] [address]- 3486 19 Oct, 2012 [facility] [address] [id number] [place] [address]- 0786 17 Oct, 2012 [facility] [address] [id number] [place] [address]- 1013 16 Oct, 2012 [facility] [address] [id number] [place] [address]- 5764 14 Oct, 2012 [facility] [address] [id number] [place] [address]- 6748 13 Oct, 2012 [facility] [address] [id number] [place] [address]- 8878 05 Oct, 2012 [facility] [address] [id number] [place] [address]- 3362 14 Sep, 2012 [facility] [address] [id number] [place] [address]- 0942 08 Sep, 2012 [facility] [address] [id number] [place] [address]- 5353 21 Aug, 2012 [facility] [place] [facility] [address] [id number] [place] [address]- 5089 16 Aug, 2012 [facility] [place] [facility] [address] [id number] [place] [address]- 8339 12 Aug, 2012 [facility] [address] [id number] [place] [address]- 5978 Aug, [facility] [address] [id number] [place] [address] Aug, [facility] [place] [facility] [address] [id number] [place] [address] Jul, [facility] [address] [id number] [place] [address] Jul, [facility] [place] [facility] [address] [id number] [place] [address] Jul, [facility] [place] [facility] [address] [id number] [place] [address] Jul, [facility] [place] [facility] [address] [id number] [place] [address]268 18 Jul, 2012 [facility] [address] [id number] [place] [address] 17 Jul, 2012 [facility] [place] [facility] [address] [id number] [place] [address] 14 Jul, 2012 [facility] [place] [facility] [address] [id number] [place] [address] 14 Jul, 2012 [facility] [place] [facility] [address] [id number] [place] [address] Jul, [facility] [place] [facility] [address] [id number] [place] [address]- [address] 06 Jul, 2012 [facility] [place] [facility] [address] [id number] [place] [address] 05 Jul, 2012 [facility] [place] [facility] [address] [id number] [place] [address]- [address] 05 Jul, 2012 [facility] [place] [facility] [address] [id number] [place] [address]- [address] 04 Jul, 2012 [facility] [place] [facility] [address] [id number] [place] [address] Jul, [facility] [place] [facility] [address] [id number] [place] [address]- [address] Jul, [facility] [place] [facility] [address] [id number] [place] [address] Jul, [facility] [place] [facility] [address] [id number] [place] [address]- [address] Jun, [facility] [place] [facility] [address] [id number] [place] [address]- [address] Jun, [facility] [place] [facility] [address] [id number] [place] [address]- [address] Jun, [facility] [place] [facility] [address] [id number] [place] [address]- [address] Jun, [facility] [place] [facility] [address] [id number] [place] [address]647 Jun, [facility] [place] [facility] [address] [id number] [place] [address]- [address] Jun, [facility] [place] [facility] [address] [id number] [place] [address]- [address] Jun, [facility] [place] [facility] [address] [id number] [place] [address] Jun, [facility] [place] [facility] [address] [id number] [place] [address] Jun, [facility] [place] [facility] [address] [id number] [place] [address]- [address] May, [facility] [place] [facility] [address] [id number] [place] [address] Mar, [facility] [place] [facility] [address] [id number] [place] [address] Mar, [facility] [place] [facility] [address] [id number] [place] [address]- [address] Mar, [facility] [place] [facility] [address] [id number] [place] [address] Mar, [facility] [place] [facility] [address] [id number] [place] [address] Jan, [facility] [place] [facility] [address] [id number] [place] [address]- [address] Jan, [facility] [place] [facility] [address] [id number] [place] [address] Jan, [facility] [place] [facility] [address] [id number] [place] [address] Jan, [facility] [place] [facility] [address] [id number] [place] [address] Jan, [facility] [place] [facility] [address] [id number] [place] [address] Jan, [facility] [place] [facility] [address] [id number] [place] [address] December, [facility] [place] [facility] [address] [id number] [place] [address] December, [facility] [place] [facility] [address] [id number] [place] [address] Nov, [facility] [place] [facility] [address] [id number] [place] [address] Nov, [facility] [place] [facility] [address] [id number] [place] [address] Oct, [facility] [place] [facility] [address] [id number] [place] [address] Oct, [facility] [place] [facility] [address] [id number] [place] [address] Oct, [facility] [place] [facility] [address] [id number] [place] [address] Oct, [facility] [place] [facility] [address] [id number] [place] [address] Aug, [facility] [place] [facility] [address] [id number] [place] [address] Aug, [facility] [place] [facility] [address] [id number] [place] [address] Jun, [facility] [place] [facility] [address] [id number] [place] [address] Jun, [facility] [place] [facility] [address] [id number] [place] [address] Jun, [facility] [place] [facility] [address] [id number] [place] [address] Jun, [facility] [place] [facility] [address] [id number] [place] [address] Jun, [facility] [place] [facility] [address] [id number] [place] [address] May, [facility] [place] [facility] [address] [id number] [place] [address] May, [facility] [place] [facility] [address] [id number] [place] [address] May, [facility] [place] [facility] [address] [id number] [place] [address] May, [facility] [place] [facility] [address] [id number] [place] [address] May, [facility] [place] [facility] [address] [id number] [place] [address] May, [facility] [place] [facility] [address] [id number] [place] [address] May, [facility] [place] [facility] [address] [id number] [place] [address] Mar, [facility] [place] [facility] [address] [id number] [place] [address] May, [facility] [place] [facility] [address] [id number] [place] [address] Jan, [facility] [place] [facility] [id number] [address] Jul, [facility] [id number] [address] Jun, [facility] [id number] [address] Jun, [facility] [id number] [address] Jun, [facility] [id number] [address] Jun, [facility] [id number] [address] Jun, [facility] [id number] [address] May, [facility] [id number] [address] May, [facility] [id number] [address] May, [facility] [id number] [address] Jul, IMMUNIZATIONS No Known Immunizations SOCIAL HISTORY Never Assessed REASON FOR VISIT Pain (acute)left leg pain-Shira MARRUFO PLAN OF CARE VITAL SIGNS Height 62 in 2017-11-04 Weight 163.9 lbs 2017-11-04 Temperature 98.3 degrees Fahrenheit 2017-11-04 Heart Rate 78 bpm 2017-11-04 Respiratory Rate 18 2017-11-04 BMI 29.97 kg/m2 2017-11-04 Blood pressure systolic 118 mmHg 2017-11-04 Blood pressure diastolic 80 mmHg 2017-11-04 MEDICATIONS Medication Instructions Dosage Frequency Start Date End Date Duration Status Lisinopril 2.5 MG Orally Once a day 2 tablets 24h 90 days Active Azelastine HCl 0.05 % Ophthalmic Twice a day 1 drop into affected eye 12h 14 Oct, 2017 Active Glimepiride 1 MG Orally Once a day 1 tablet with breakfast or the first main meal of the day 24h 09 May, 2017 90 days Active Glucocard Expression Test 1 subcutaneously 2 times a day test 2 times per day 12h May, 12 months Active Abilify 10 MG Orally Once a day at bedtime 1 tablet 30 days Active Tramadol HCl 50 mg Orally 2 times a day 1 tablet as needed 12h Nov, Active Atorvastatin Calcium 10 mg Orally Once a day 1 tablet 24h May, 90 days Active Aspir-81 81 MG Orally Once a day 1 tablet 24h Apr, Jan, 90 days Active RESULTS No Results PROCEDURES [...]
--- OUTSIDE RECORDS SUMMARY | 2018-04-18 15:34 | XMS REPORT ---
Author Author WILKINSSREEKANTH Organization [facility] Address [address] [place] [address] Care Team Providers Care Deposition Reporter Name Role Phone SREEKANTH WILKINS Unavailable PROBLEMS Type Condition ICD9-CM Code GBS97-LV Code Onset Dates Condition Status SNOMED Code Problem History of hypertension Z86.79 Active 285257478 Problem Elevated LDL cholesterol level E78.00 Active 070033571 Problem Personality disorder F60.9 Active 72605903 Problem Other chronic pain G89.29 Active 36911038 Problem Hypoglycemia E16.2 Active 596222061 Problem Acute seasonal allergic rhinitis, unspecified trigger J30.2 Active 861948906 Problem Type 2 diabetes mellitus without complication, without long-term current use of insulin E11.9 Active 537085747 Problem Primary insomnia F51.01 Active 5410591 Problem Acute non intractable tension-type headache G44.209 Active 756513732 Problem Generalized anxiety disorder F41.1 Active 80305804 Problem Bipolar disorder in remission F31.70 Active 02808825 Problem Family history of diabetes insipidus Z83.49 Active 480768158 Problem Abnormal CBC R79.89 Active 844909432 Problem Bipolar disorder, current episode mixed, mild F31.61 Active 680645622 Problem History of diabetes mellitus Z86.39 Active 385795744 Problem Overweight (BMI 25.0-29.9) E66.3 Active 709546994 Problem Sore throat J02.9 Active 873708463 ALLERGIES No Information ENCOUNTERS Encounter Location Date Diagnosis [facility] [id number] [place] [address] 84362- 5899 Jan, UTI symptoms R39.9 and Epigastric pain R10.13 [facility] [id number] [place] [address] 77876- 3768 Jan, Posterior right knee pain M25.561 [facility] [id number] [place] [address] 23854- 4494 Jan, Posterior right knee pain M25.561 [facility] [id number] [place] [address] 95997- 5939 Jan, Scabies B86 [facility] [id number] [place] [address] 43587- 4422 Jan, Bipolar disorder, current episode mixed, mild F31.61 and Personality disorder F60.9 [facility] [address] 37918- 2636 Jan, Cyst of ovary, unspecified laterality N83.209 [facility] [place] [address] [place] 408372- 7540 December, Cyst of ovary, unspecified laterality N83.209 [facility] [address] 33112- 7382 December, [facility] [address] 67925- 3797 December, Dysuria R30.0 [facility] [id number] [place] [address] 08960- 7613 December, [facility] [id number] [place] [address] 48289- 6153 Nov, Bipolar disorder, current episode mixed, mild F31.61 and Personality disorder F60.9 [facility] [id number] [place] [address] 99141- 2514 Nov, Elevated LDL cholesterol level E78.00 and Type 2 diabetes mellitus without complication, without long-term current use of insulin E11.9 [facility] [id number] [place] [address] 43737- 8840 Nov, Elevated LDL cholesterol level E78.00 and Type 2 diabetes mellitus without complication, without long-term current use of insulin E11.9 [facility] [id number] [place] [address] 04698- 9868 Nov, Other chronic pain G89.29 and Pain in left leg M79.605 [facility] [id number] [place] [address] 87357- 3383 02 Nov, 2017 Acute pain of left knee M25.562 ; Syncope, unspecified syncope type R55 and Hypoglycemia E16.2 [facility] [place] [id number] [place] [address] 83526- 2244 30 Oct, 2017 Syncope, unspecified syncope type R55 [facility] [address] 13599- 9630 Oct, Bipolar disorder, current episode mixed, mild F31.61 and Personality disorder F60.9 [facility] [place] [address] 80939- 8561 Oct, Lump of right breast N63.10 [facility] [address] 04446- 9316 Oct, Generalized anxiety disorder F41.1 [facility] [address] 51847- 8689 Oct, Generalized anxiety disorder F41.1 ; Bipolar disorder in remission F31.70 ; Bipolar disorder, current episode mixed, mild F31.61 and Primary insomnia F51.01 [facility] [id number] [place] [address] 16820- 9388 Oct, Primary insomnia F51.01 and Lump of right breast N63.10 [facility] [id number] [place] [address] 70087- 9592 16 Oct, 2017 Enteritis K52.9 [facility] [id number] [place] [address] 10192 -5480 14 Oct, 2017 Allergic conjunctivitis of both eyes H10.13 and Acute non intractable tension-type headache G44.209 [facility] [id number] [place] [address] 99471- 4442 14 Oct, 2017 [facility] [address] [place] [address]- 0787 Oct, Bipolar disorder, current episode mixed, mild F31.61 [facility] [id number] [place] [address] 83957- 9278 Sep, Right flank pain R10.9 and Thoracic spine pain M54.6 [facility] [id number] [place] [address] 79408- 5063 Sep, Generalized anxiety disorder F41.1 and Bipolar disorder, current episode mixed, mild F31.61 [facility] [id number] [place] [address] 15750- 7894 Sep, [facility] [place] [id number] [place] [address] 46539- 2755 Sep, Generalized anxiety disorder F41.1 ; Bipolar disorder in remission F31.70 and Personality disorder F60.9 [facility] [id number] [place] [address] 76824- 7152 Sep, Spasm of thoracic back muscle M62.830 ; Type 2 diabetes mellitus without complication, without long-term current use of insulin E11.9 and Generalized anxiety disorder F41.1 [facility] [place] [id number] [place] [address] 90357- 7880 Sep, Bipolar disorder, current episode mixed, mild F31.61 and Personality disorder F60.9 [facility] [place] [id number] [place] [address] 89278- 1900 Aug, [facility] [place] [id number] [place] [address] 20532- 8060 Aug, Bipolar disorder, current episode mixed, mild F31.61 and Personality disorder F60.9 [facility] [place] [id number] [place] [address] 75399- 7983 05 Aug, 2017 Type 2 diabetes mellitus without complication, without long- term current use of insulin E11.9 ; Generalized anxiety disorder F41.1 ; Bipolar disorder in remission F31.70 and Overweight (BMI 25.0-29.9) E66.3 [facility] [address] 90587- 6183 Aug, Type 2 diabetes mellitus without complication, without long- term current use of insulin E11.9 ; Elevated LDL cholesterol level E78.00 and Bipolar disorder, current episode mixed, mild F31.61 [facility] [address] 7[address]81 -1961 Jul, Vaginal discharge N89.8 ; Skin irritation R23.8 and Dysuria R30.0 [facility] IN [facility] [address] 15541 -7881 Jul, Acute seasonal allergic rhinitis, unspecified trigger J30.2 and Chest pain, unspecified type R07.9 [facility] [address] 33909- 8798 Jun, Bipolar disorder, current episode mixed, mild F31.61 [facility] [address] 99087- 8995 Jun, [facility] [address] 20918- 1905 Jun, Bipolar disorder, current episode mixed, mild F31.61 and Personality disorder F60.9 [facility] [place] [address] 61939- 0602 Jun, [facility] [place] [address] 71145- 1060 Jun, Type 2 diabetes mellitus without complication, without long- term current use of insulin E11.9 and Dysuria R30.0 [facility] [place] [address] 32364- 0815 May, Bipolar disorder, current episode mixed, mild F31.61 ; Personality disorder F60.9 and Homeless Z59.0 [place] [address] 05508- 4552 May, Type 2 diabetes mellitus without complication, without long- term current use of insulin E11.9 [facility] [place] [id number] [place] [address] 13663- 0005 May, History of hypertension Z86.79 [facility] [place] [id number] [place] [address] 69913- 1741 May, [facility] [place] [id number] [place] [address] 14743- 5796 May, Type 2 diabetes mellitus without complication, without long- term current use of insulin E11.9 ; Elevated LDL cholesterol level E78.00 ; Low serum HDL R74.8 and Encounter for immunization Z23 [facility] [address] 59337- 0076 Apr, Encounter to establish care Z76.89 ; Abnormal CBC R79.89 ; History of hypertension Z86.79 ; Overweight (BMI 25.0-29.9) E66.3 ; Family history of diabetes insipidus Z83.49 ; Sore throat J02.9 and Tonsillitis with exudate J03.90 [facility] [place] [id number] [place] [address] 07642- 3075 Apr, Bipolar disorder, current episode mixed, mild F31.61 [facility] [place] [id number] [place] [address] 73966- 2214 Mar, [facility] [place] [id number] [place] [address] 28205- 4707 Mar, Bipolar disorder, current episode mixed, mild F31.61 [facility] [place] [id number] [place] [address] 74522- 1307 Mar, [facility] [id number] [place] [address] 32440- 9731 Mar, Bipolar disorder in remission F31.70 [facility] [place] [id number] [place] [address] 60775- 7635 Jan, [facility] [address] 43962- 3486 Jan, [facility] [id number] 5757 Oct, Generalized anxiety disorder F41.1 and Bipolar disorder in remission F31.70 [facility] [id number] [place] [address]- 0406 Oct, [facility] [address] 2156 Oct, [facility] [address] [facility] [id number] [place] [address]- 3726 Oct, [facility] [address] [place] [address]- 2296 Oct, [facility] [address] [address]- 7734 Jul, [facility] [address] [place] [address]- 2202 Jun, [facility] [id number] [address]- 7594 May, 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 and Generalized anxiety disorder F41.1 [facility] [address] [place] [address]- 7018 Jan, [facility] [address] [address]- 9326 Jan, [facility] [address] [place] [address]- 2547 Jan, 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 and Generalized anxiety disorder F41.1 [facility] [address] [address]- 0586 Sep, [facility] [address] 5966 Sep, [facility] [address] [place] [address] 75367- 0001 Jul, 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 and Generalized anxiety disorder F41.1 [facility] [id number] [place] [address] 180056- 0919 Jul, Otalgia of right ear H92.01 [facility] [id number] [place] [address] 34124- 2743 Jun, [facility] [id number] [place] [address] 243776- 5217 Mar, [facility] [id number] [place] [address] 42826- 6790 Jan, [facility] [id number] [place] [address] 12008- 6595 Jan, [facility] [id number] [place] [address] 64783- 9679 Jan, Bipolar 1 disorder, mixed, moderate 296.62 and SHERRY ( generalized anxiety disorder) 300.02 [facility] [id number] [place] [address] 53324- 0744 Jan, [facility] [id number] [place] [address] 42847- 3775 Nov, [facility] [id number] [place] [address] 65920- 1585 Nov, [facility] [id number] [place] [address] 69041- 1987 Oct, [facility] [id number] [place] [address] 41035- 8984 Oct, [facility] [id number] [place] [address] 04382- 2737 Mar, [facility] [id number] [place] [address] 52091- 0816 Mar, [facility] [id number] [place] [address] 52849- 5258 Jan, [facility] [place] [facility] [address] [id number] [place] [address]- 2267 Jan, [facility] [place] [facility] [address] [id number] [place] [address]- 7030 December, [facility] [place] [facility] [address] [id number] [place] [address]- 5197 December, [facility] [place] [facility] [address] [id number] [place] [address]- 2739 December, [facility] [place] [facility] [address] [id number] [place] [address]- 1331 December, [facility] [place] [facility] [address] [id number] [place] [address]- 0202 December, [facility] [place] [facility] [address] [id number] [place] [address]- 0080 December, [facility] [place] [facility] [address] [id number] [place] [address]- 7400 December, [facility] [place] [facility] [address] [id number] [place] [address]- 9996 December, [facility] [place] [facility] [address] [id number] [place] [address]- 9167 Nov, [facility] [place] [facility] [address] [id number] [place] [address]- 3796 Nov, [facility] [place] [facility] [address] [id number] [place] [address]- 6868 Oct, [facility] [place] [facility] [address] [id number] [place] [address]- 6946 Oct, [facility] [place] [facility] [address] [id number] [place] [address]- 3779 Oct, [facility] [place] [facility] [address] [id number] [place] [address]- 8564 Oct, [facility] [place] [facility] [address] [id number] [place] [address]- 1047 Oct, [facility] [address] [id number] [place] [address]- 2001 Sep, [facility] [place] [facility] [address] [id number] [place] [address]- 1186 Sep, [facility] [place] [facility] [address] [id number] [place] [address]- 5996 Sep, [facility] [place] [facility] [address] [id number] [place] [address]- 5118 Sep, [facility] [place] [facility] [address] [id number] [place] 8011 Aug, [facility] [place] [facility] [address] [id number] [place] [address]- 9242 Aug, [facility] [place] [facility] [address] [id number] [place] [address]- 1820 Aug, [facility] [address] [id number] [place] [address]- 9714 Aug, [facility] [place] [facility] [address] [id number] [place] [address]- 1511 Aug, [facility] [place] [facility] [address] [id number] [place] 5562 16 Jul, 2013 [facility] [place] [facility] [address] [id number] [place] [address]- 2408 Jul, [facility] [place] [facility] [address] [id number] [place] [address]- 9898 Jul, [facility] [place] [facility] [address] [id number] [place] [address]- 3963 Jul, [facility] [place] [facility] [address] [id number] [place] [address]- 2546 Jun, [facility] [place] [facility] [address] [id number] [place] [address]- 1215 Jun, [facility] [place] [facility] [address] [id number] [place] [address]- 3976 May, [facility] [place] [facility] [address] [id number] [place] [address]- 5755 May, [facility] [place] [facility] [address] [id number] [place] 5412 May, [facility] [place] [facility] [address] [id number] [place] [address]- 5028 May, [facility] [place] [facility] [address] [id number] [place] [address]- 5923 May, [facility] [place] [facility] [address] [id number] [place] [address]- 9336 May, [facility] [place] [facility] [address] [id number] [place] [address]- 7597 May, [facility] [place] [facility] [address] [id number] [place] [address]- 4090 May, [facility] [place] [facility] [address] [id number] [place] [address]- 2049 May, [facility] [place] [facility] [address] [id number] [address]- 5135 Apr, [facility] [place] [facility] [address] [id number], [place] [address]- 9502 Apr, [facility] [place] [facility] [address] [id number], [place] [address]- 1465 Mar, [facility] [place] [facility] [address] [id number] [place] [address]- 8578 Mar, [facility] [place] [facility] [address] [id number] [place] [address]- 9428 Mar, [facility] [place] [facility] [address] [id number] [place] [address]- 7463 Mar, [facility] [place] [facility] [address] [id number] [place] [address]- 9201 Mar, [facility] [address] [id number] [place] [address]- 3594 Mar, [facility] [place] [facility] [address] [id number] [place] [address]- 3806 Mar, [facility] [place] [facility] [address] [id number] [place] [address]- 5179 Mar, [facility] [place] [facility] [address] [id number] [place] [address]- 9207 Mar, [facility] [place] [facility] [address] [id number] [place] [address]- 2824 Mar, [facility] [place] [facility] [address] [id number] [place] [address]- 7549 Mar, [facility] [address] [id number] [place] [address]- 8261 Jan, [facility] [place] [facility] [address] [id number] [place] [address]- 7206 Jan, [facility] [place] [facility] [address] [id number] [place] [address]- 8325 Jan, [facility] [place] [facility] [address] [id number] [place] [address]- 0191 December, [facility] [place] [facility] [address] [id number] [place] [address]- 7346 December, [facility] [place] [facility] [address] [id number] [place] [address]- 0575 Nov, [facility] [place] [facility] [address] [id number] [place] [address]- 6818 Nov, [facility] [place] [facility] [address] [id number] [place] 0552 Oct, [facility] [place] [facility] [address] [id number] [place] 3413 Oct, [facility] [place] [facility] [address] [id number] [place] [address]- 8480 21 Oct, 2012 [facility] [address] [id number] [place] [address]- 9375 20 Oct, 2012 [facility] [address] [id number] [place] [address]- 0209 19 Oct, 2012 [facility] [address] [id number] [place] [address]- 0149 19 Oct, 2012 [facility] [address] [id number] [place] [address]- 7113 17 Oct, 2012 [facility] [address] [id number] [place] [address]- 5931 16 Oct, 2012 [facility] [address] [id number] [place] [address]- 7350 14 Oct, 2012 [facility] [address] [id number] [place] [address]- 9275 13 Oct, 2012 [facility] [address] [id number] [place] [address]- 5048 05 Oct, 2012 [facility] [address] [id number] [place] [address]- 4040 14 Sep, 2012 [facility] [address] [id number] [place] [address]- 0264 08 Sep, 2012 [facility] [address] [id number] [place] [address]- 4110 Aug, [facility] [address] [id number] [place] [address]- 0874 16 Aug, 2012 [facility] [place] [facility] [address] [id number] [place] [address]- 9880 Aug, [facility] [place] [facility] [address] [id number] [place] [address]- 7400 09 Aug, 2012 [facility] [address] [id number] [place] [address]- 4689 07 Aug, 2012 [facility] [place] [facility] [address] [id number] [place] [address]- 6816 Jul, [facility] [place] [facility] [address] [id number] [place] [address]- 4866 Jul, [facility] [place] [facility] [address] [id number] [place] [address]- 9946 Jul, [facility] [place] [facility] [address] [id number] [place] [address]- 3476 19 Jul, 2012 [facility] [place] [facility] [address] [id number] [place] [address]- 4195 18 Jul, 2012 [facility] [place] [facility] [address] [id number] [place] [address]- 3820 17 Jul, 2012 [facility] [place] [facility] [address] [id number] [place] [address]- 7419 14 Jul, 2012 [facility] [place] [facility] [address] [id number] [place] [address]- 7548 14 Jul, 2012 [facility] [place] [facility] [address] [id number] [place] [address]- 2216 06 Jul, 2012 [facility] [place] [facility] [address] [id number] [place] [address]- 9914 06 Jul, 2012 [facility] [place] [facility] [address] [id number] [place] [address]- 4624 05 Jul, 2012 [facility] [place] [facility] [address] [id number] [place] [address] 05 Jul, 2012 [facility] [place] [facility] [address] [id number] [place] [address] 04 Jul, 2012 [facility] [place] [facility] [address] [id number] [place] [address] 04 Jul, 2012 [facility] [place] [facility] [address] [id number] [place] [address] 04 Jul, 2012 [facility] [place] [facility] [address] [id number] [place] [address] Jul, [facility] [place] [facility] [address] [id number] [place] [address] Jun, [facility] [place] [facility] [address] [id number] [place] [address] Jun, [facility] [place] [facility] [address] [id number] [place] [address] Jun, [facility] [place] [facility] [address] [id number] [place] [address] Jun, [facility] [place] [facility] [address] [id number] [place] [address] Jun, [facility] [place] [facility] [address] [id number] [place] [address] Jun, [facility] [place] [facility] [address] [id number] [place] [address] Jun, [facility] [place] [facility] [address] [id number] [place] [address] Jun, [facility] [place] [facility] [address] [id number] [place] [address] Jun, [facility] [place] [facility] [address] [id number] [place] [address] May, [facility] [place] [facility] [address] [id number] [place] [address] Mar, [facility] [place] [facility] [address] [id number] [place] [address] Mar, [facility] [place] [facility] [address] [id number] [place] [address] Mar, [facility] [place] [facility] [address] [id number] [place] [address] Mar, [facility] [place] [facility] [address] [id number] [place] [address] Jan, [facility] [place] [facility] [address] [id number] [place] [address] Jan, [facility] [place] [facility] [address] [id number] [place] [address] Jan, [facility] [place] [facility] [address] [id number] [place] [address] Jan, [facility] [place] [facility] [address] [id number] [place] [address] Jan, [facility] [place] [facility] [address] [id number] [place] [address] Jan, [facility] [place] [facility] [address] [id number] [place] [address] December, [facility] [place] [facility] [address] [id number] [place] [address] December, [facility] [place] [facility] [address] [id number] [place] [address] Nov, [facility] [place] [facility] [address] [id number] [place] [address] Nov, [facility] [place] [facility] [address] [id number] [place] [address] Oct, [facility] [place] [facility] [address] [id number] [place] [address] Oct, [facility] [place] [facility] [address] [id number], [place] [address] Oct, [facility] [place] [facility] [address] [id number] [place] [address] Oct, [facility] [place] [facility] [address] [id number] [place] [address] Aug, [facility] [place] [facility] [address] [id number] [place] [address] Aug, [facility] [place] [facility] [address] [id number], [place] [address] Jun, [facility] [place] [facility] [address] [address] [id number] [place] [address] Jun, [facility] [place] [facility] [address] [id number] [place] [address] Jun, [facility] [place] [facility] [address] [id number] [place] [address] Jun, [facility] [place] [facility] [address] [id number] [place] [address] Jun, [facility] [place] [facility] [id number] [place] [address], [place] [address] May, [facility] [place] [facility] [address] [id number] [place] [address] May, [facility] [place] [facility] [address] [id number], [place] [address] May, [facility] [place] [facility] [address] [id number] [place] [address] May, [facility] [place] [facility] [address] [id number] [place] [address] May, [facility] [place] [facility] [address] [facility] [id number] [place] [address] May, [facility] [place] [facility] [address] [id number], [place] [address] May, [facility] [place] [facility] [address] [id number], [place] [address] Mar, [facility] [place] [facility] [address] [id number] [place] [address] May, [facility] [place] [facility] [address] [id number] [place] [address] Jan, [facility] [place] [facility] [address] [facility] [id number] [place] [address] Jul, [facility] [place] [facility] [address] [id number], [place] [address] Jun, 2009 [facility] [address] [facility] [id number], [place] [address] Jun, [facility] [address] [facility] [id number], [place] [address] Jun, [facility] [address] [facility] [id number], [place] [address] Jun, [facility] [address] [facility] [id number], [place] [address] Jun, [facility] [id number], [place] [address] May, [facility] [id number], [place] [address] May, [facility] [id number], [place] [address] May, [facility] [address] [id number], [place] [address] Jul, IMMUNIZATIONS No Known Immunizations SOCIAL HISTORY Never Assessed REASON FOR VISIT Refill request PLAN OF CARE VITAL SIGNS MEDICATIONS Medication Instructions Dosage Frequency Start Date End Date Duration Status Lisinopril 5 MG Orally Once a day 1 tablet 24h 90 days Active Glimepiride 1 MG Orally Once a day 1 tablet with breakfast or the first main meal of the day 24h May, 90 days Active Atorvastatin Calcium 10 mg Orally Once a day 1 tablet 24h May, 90 days Active RESULTS No [...]
--- OUTSIDE RECORDS SUMMARY | 2018-04-18 15:35 | XMS REPORT ---
Author Author HANK COLE Organization [facility] Address [address] [place] [address] Care Team Providers Care Spanish Interpreter/Translator Name Role Phone HANK COLE Unavailable PROBLEMS Type Condition ICD9-CM Code NVU34-CM Code Onset Dates Condition Status SNOMED Code Problem History of hypertension Z86.79 Active 872833148 Problem Elevated LDL cholesterol level E78.00 Active 270832396 Problem Personality disorder F60.9 Active 13423829 Problem Other chronic pain G89.29 Active 28008242 Problem Hypoglycemia E16.2 Active 864282349 Problem Acute seasonal allergic rhinitis, unspecified trigger J30.2 Active 007088222 Problem Type 2 diabetes mellitus without complication, without long-term current use of insulin E11.9 Active 484145281 Problem Primary insomnia F51.01 Active 1472949 Problem Acute non intractable tension-type headache G44.209 Active 602793150 Problem Generalized anxiety disorder F41.1 Active 41133663 Problem Bipolar disorder in remission F31.70 Active 35797769 Problem Family history of diabetes insipidus Z83.49 Active 811344380 Problem Abnormal CBC R79.89 Active 698775688 Problem Bipolar disorder, current episode mixed, mild F31.61 Active 745224182 Problem History of diabetes mellitus Z86.39 Active 950447670 Problem Overweight (BMI 25.0-29.9) E66.3 Active 032760573 Problem Sore throat J02.9 Active 584108697 ALLERGIES Substance Reaction Event Type Date Status MetFORMIN HCl ER nausea Drug Allergy Nov, Active Zyprexa rash Drug Allergy Nov, Active Cipro rash Drug Allergy Nov, Active ENCOUNTERS Encounter Location Date Diagnosis [facility] [id number], [place] [address] Jan, UTI symptoms R39.9 and Epigastric pain R10.13 [facility] [address] [id number], [place] [address] Jan, Posterior right knee pain M25.561 [facility] [id number] [place] [address] 81111- 2961 Jan, Posterior right knee pain M25.561 [facility] [id number] [place] [address] 41013- 2922 Jan, Scabies B86 [place] [address] [address]66- 1622 Jan, Bipolar disorder, current episode mixed, mild F31.61 and Personality disorder F60.9 [place] [id number] [place] [address] 15059- 8715 Jan, Cyst of ovary, unspecified laterality N83.209 [place] [id number] [place] [address] 85381- 4714 December, Cyst of ovary, unspecified laterality N83.209 [place] [id number] [place] [address] 24548- 2439 December, [place] [id number] [place] [address] 39788- 9474 December, Dysuria R30.0 [place] [id number] [place] [address] 40577- 9219 December, [place] [id number] [place] [address] 35249- 2993 Nov, Bipolar disorder, current episode mixed, mild F31.61 and Personality disorder F60.9 [facility] [id number] [place] [address] 17780- 5060 Nov, Elevated LDL cholesterol level E78.00 and Type 2 diabetes mellitus without complication, without long-term current use of insulin E11.9 [facility] [address] [place] [address] 17486- 7578 Nov, Elevated LDL cholesterol level E78.00 and Type 2 diabetes mellitus without complication, without long-term current use of insulin E11.9 [place] [id number] [place] [address] 86717- 9538 04 Nov, 2017 Other chronic pain G89.29 and Pain in left leg M79.605 [place] [id number] [place] [address] 29746- 7966 02 Nov, 2017 Acute pain of left knee M25.562 ; Syncope, unspecified syncope type R55 and Hypoglycemia E16.2 [place] [id number] [place] [address] 27554- 1342 Oct, Syncope, unspecified syncope type R55 [place] [address] 38539- 0843 Oct, Bipolar disorder, current episode mixed, mild F31.61 and Personality disorder F60.[address] 14191- 3440 Oct, Lump of right breast N63.10 [place] [id number] [place] [address] 18856- 8485 Oct, Generalized anxiety disorder F41.[address] 69575- 8076 Oct, Generalized anxiety disorder F41.1 ; Bipolar disorder in remission F31.70 ; Bipolar disorder, current episode mixed, mild F31.61 and Primary insomnia F51.01 [place] [id number] [place] [address] 98315- 9068 Oct, Primary insomnia F51.01 and Lump of right breast N63.10 [place] [id number] [place] [address] 93675- 1792 16 Oct, 2017 Enteritis K52.9 [facility] [id number] [place] [address] 14300 -3688 14 Oct, 2017 Allergic conjunctivitis of both eyes H10.13 and Acute non intractable tension-type headache G44.209 [place] [address] [place] [address]- 0219 Oct, [facility] [id number] [place] [address] 93062- 4520 Oct, Bipolar disorder, current episode mixed, mild F31.61 [facility] [id number] [place] [address] 89776- 7841 22 Sep, 2017 Right flank pain R10.9 and Thoracic spine pain M54.6 [place] [id number] [place] [address] 40685- 6525 16 Sep, 2017 Generalized anxiety disorder F41.1 and Bipolar disorder, current episode mixed, mild F31.61 [place] [id number] [place] [address] 56070- 0492 Sep, [place] [id number] [place] [address] 72077- 9046 Sep, Generalized anxiety disorder F41.1 ; Bipolar disorder in remission F31.70 and Personality disorder F60.9 [place] [id number] [place] [address] 05714- 0666 Sep, Spasm of thoracic back muscle M62.830 ; Type 2 diabetes mellitus without complication, without long-term current use of insulin E11.9 and Generalized anxiety disorder F41.1 [place] [address] [place] [address] 68926- 0867 Sep, Bipolar disorder, current episode mixed, mild F31.61 and Personality disorder F60.9 [place] [address] [place] [address] 28514- 8634 Aug, [place] [id number] [place] [address] 83844- 9859 Aug, Bipolar disorder, current episode mixed, mild F31.61 and Personality disorder F60.9 [place] [address] [place] [address] 04930- 1670 Aug, Type 2 diabetes mellitus without complication, without long- term current use of insulin E11.9 ; Generalized anxiety disorder F41.1 ; Bipolar disorder in remission F31.70 and Overweight (BMI 25.0-29.9) E66.3 [place] [address] 39308- 0084 Aug, Type 2 diabetes mellitus without complication, without long- term current use of insulin E11.9 ; Elevated LDL cholesterol level E78.00 and Bipolar disorder, current episode mixed, mild F31.61 [facility] [place] [address] [address] -3022 Jul, Vaginal discharge N89.8 ; Skin irritation R23.8 and Dysuria R30.0 [facility] [place] [address] 23105 -7013 Jul, Acute seasonal allergic rhinitis, unspecified trigger J30.2 and Chest pain, unspecified type R07.[address] 54111- 9372 Jun, Bipolar disorder, current episode mixed, mild F31.61 [place] [address] 38970- 6151 Jun, [place] [address] 40770- 1308 Jun, Bipolar disorder, current episode mixed, mild F31.61 and Personality disorder F60.9 [place] [address] 90455- 8258 Jun, [place] [address] 62921- 5514 Jun, Type 2 diabetes mellitus without complication, without long- term current use of insulin E11.9 and Dysuria R30.0 [place] [address] 08788- 6416 May, Bipolar disorder, current episode mixed, mild F31.61 ; Personality disorder F60.9 and Homeless Z59.0 [place] [address] [place] [address] 84888- 0473 May, Type 2 diabetes mellitus without complication, without long- term current use of insulin E11.9 [place] [id number] [place] [address] 77410- 4062 May, History of hypertension Z86.[address] 84209- 2356 May, [place] [id number] [place] [address] 24197- 8740 May, Type 2 diabetes mellitus without complication, without long- term current use of insulin E11.9 ; Elevated LDL cholesterol level E78.00 ; Low serum HDL R74.8 and Encounter for immunization Z23 [place] [id number] [place] [address] 11177- 6537 Apr, Encounter to establish care Z76.89 ; Abnormal CBC R79.89 ; History of hypertension Z86.79 ; Overweight (BMI 25.0-29.9) E66.3 ; Family history of diabetes insipidus Z83.49 ; Sore throat J02.9 and Tonsillitis with exudate J03.90 [place] [id number] [place] [address] 30016- 9561 Apr, Bipolar disorder, current episode mixed, mild F31.61 [place] [id number] [place] [address] 98674- 2098 Mar, [place] [id number] [place] [address] 30330- 5527 Mar, Bipolar disorder, current episode mixed, mild F31.61 [place] [address] 01039- 9874 Mar, [address] [id number] [place] [address] 09073- 0702 Mar, Bipolar disorder in remission F31.70 [place] [address] 41690- 1986 Jan, [facility] [address], [place] [address]- 2658 Jan, [facility] [address], [place] [address]- 9026 Oct, Generalized anxiety disorder F41.1 and Bipolar disorder in remission F31.70 [facility] [id number] [place] [address] 18976- 0076 Oct, [facility] [id number] 4496 Oct, [facility] [id number] 5106 Oct, [facility] [address], [place] [address]- 2116 Oct, [facility] [address], [place] [address]- 3418 Jul, [facility] [address] 3472 Jun, [facility] [address], [place] [address]- 8881 May, 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 and Generalized anxiety disorder F41.1 [facility] [address], [place] [address]- 2926 Jan, [facility] [address], [place] [address] 2546 Jan, [facility] [id number], [place] [address]- 8308 Jan, 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 and Generalized anxiety disorder F41.1 [facility] [address], [place] [address]- 9386 Sep, [facility] [id number] [place] [address] 49018- 9500 Sep, [facility] [id number] [place] [address] 289821- 2847 Jul, 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 and Generalized anxiety disorder F41.1 [facility] [id number] [place] [address] 32838- 8526 Jul, Otalgia of right ear H92.01 [facility] [id number] [place] [address] 64915- 1796 Jun, [facility] [id number] [place] [address] 80790- 2245 Mar, [facility] [id number] [place] [address] 09887- 2929 Jan, [facility] [id number] [place] [address] 73250- 9958 Jan, [facility] [id number] [place] [address] 51891- 8050 Jan, Bipolar 1 disorder, mixed, moderate 296.62 and SHERRY ( generalized anxiety disorder) 300.02 [facility] [id number] [place] [address] 75630- 4211 Jan, [facility] [id number] [place] [address] 66753- 1404 Nov, [facility] [id number] [place] [address] 77995- 6509 Nov, [facility] [id number] [place] [address] 13427- 7624 Oct, [facility] [id number] [place] [address] 41889- 1715 Oct, [facility] [id number] [place] [address] 53577- 8786 Mar, [facility] [id number] [place] [address] 27861- 9026 Mar, [facility] [place] [facility] [address] [id number] [place] [address]- 0826 Jan, [facility] [place] [facility] [address] [id number] [place] [address]- 1037 Jan, [facility] [place] [facility] [address] [id number] [place] [address]- 2163 December, [facility] [place] [facility] [address] [id number] [place] [address]- 7072 December, [facility] [place] [facility] [address] [id number] [place] [address]- 3449 December, [facility] [place] [facility] [address] [id number] [place] [address]- 5013 December, [facility] [place] [facility] [address] [id number] [place] [address]- 0762 December, [facility] [place] [facility] [address] [id number] [place] [address]- 8053 December, [facility] [place] [facility] [address] [id number] [place] [address]- 4019 December, [facility] [place] [facility] [address] [id number] [place] [address]- 8495 December, [facility] [place] [facility] [address] [id number] [place] [address]- 3720 Nov, [facility] [place] [facility] [address] [id number] [place] [address]- 0582 Nov, [facility] [place] [facility] [address] [id number] [place] [address]- 2805 Oct, [facility] [place] [facility] [address] [id number] [place] [address]- 4148 Oct, [facility] [place] [facility] [address] [id number] [place] [address]- 1563 Oct, [facility] [place] [facility] [address] [id number] [place] [address]- 7964 Oct, [facility] [address] [id number] [place] [address]- 1510 Oct, [facility] [place] [facility] [address] [id number] [place] [address]- 5156 Sep, [facility] [place] [facility] [address] [id number] [place] [address]- 2836 Sep, [facility] [place] [facility] [address] [id number] [place] [address]- 0874 Sep, [facility] [place] [facility] [address] [id number] [place] 7586 Sep, [facility] [place] [facility] [address] [id number] [place] [address]- 2747 Aug, [facility] [place] [facility] [address] [id number] [place] [address]- 3013 Aug, [facility] [place] [facility] [address] [id number] [place] [address]- 3572 Aug, [facility] [place] [facility] [address] [id number] [place] [address]- 2566 Aug, [facility] [place] [facility] [address] [id number] [place] [address]- 5719 Aug, [facility] [place] [facility] [address] [id number] [place] [address]- 6073 16 Jul, 2013 [facility] [place] [facility] [address] [id number] [place] [address]- 2422 16 Jul, 2013 [facility] [place] [facility] [address] [id number] [place] [address]- 9686 Jul, [facility] [place] [facility] [address] [id number] [place] [address]- 4626 Jul, [facility] [place] [facility] [address] [id number] [place] [address]- 0917 Jun, [facility] [place] [facility] [address] [id number] [place] [address]- 9880 Jun, [facility] [place] [facility] [address] [id number] [place] [address]- 7038 May, [facility] [place] [facility] [address] [id number] [place] [address]- 3570 May, [facility] [place] [facility] [address] [id number] [place] [address]- 2214 May, [facility] [place] [facility] [address] [id number] [place] [address]- 7672 May, [facility] [place] [facility] [address] [id number] [place] [address]- 3606 May, [facility] [place] [facility] [address] [id number] [place] [address]- 3611 May, [facility] [place] [facility] [address] [id number] [place] [address]- 9125 May, [facility] [place] [facility] [address] [id number] [place] [address]- 4643 May, [facility] [place] [facility] [address] [id number] [place] [address]- 7003 May, [facility] [place] [facility] [address] [id number] [address]- 8067 Apr, [facility] [place] [facility] [address] [id number], [place] [address]- 2407 Apr, [facility] [place] [facility] [address] [id number] [place] [address]- 8509 Mar, [facility] [place] [facility] [address] [id number] [place] [address]- 9761 Mar, [facility] [place] [facility] [address] [id number] [place] [address]- 4618 Mar, [facility] [place] [facility] [address] [id number] [place] [address]- 1580 Mar, [facility] [address] [id number] [place] [address]- 8364 Mar, [facility] [place] [facility] [address] [id number] [place] [address]- 1841 Mar, [facility] [place] [facility] [address] [id number] [place] [address]- 6564 Mar, [facility] [place] [facility] [address] [id number] [place] [address]- 4108 Mar, [facility] [place] [facility] [address] [id number] [place] [address]- 1037 Mar, [facility] [place] [facility] [address] [id number] [place] [address]- 8471 Mar, [facility] [address] [id number] [place] [address]- 0018 Mar, [facility] [place] [facility] [address] [id number] [place] [address]- 4564 Jan, [facility] [place] [facility] [address] [id number] [place] [address]- 1845 Jan, [facility] [place] [facility] [address] [id number] [place] [address]- 1488 Jan, [facility] [place] [facility] [address] [id number] [place] [address]- 0202 December, [facility] [place] [facility] [address] [id number] [place] [address]- 2775 December, [facility] [place] [facility] [address] [id number] [place] [address]- 8498 Nov, [facility] [place] [facility] [address] [id number] [place] [address]- 6938 Nov, [facility] [place] [facility] [address] [id number] [place] [address]- 0434 Oct, [facility] [place] [facility] [address] [id number] [place] [address]- 2555 26 Oct, 2012 [facility] [address] [id number] [place] [address]- 3862 21 Oct, 2012 [facility] [address] [id number] [place] [address]- 6784 20 Oct, 2012 [facility] [address] [id number] [place] [address]- 2555 19 Oct, 2012 [facility] [address] [id number] [place] [address]- 6182 19 Oct, 2012 [facility] [address] [id number] [place] [address]- 6216 17 Oct, 2012 [facility] [address] [id number] [place] [address]- 3871 16 Oct, 2012 [facility] [address] [id number] [place] [address]- 7481 14 Oct, 2012 [facility] [address] [id number] [place] [address]- 4202 13 Oct, 2012 [facility] [address] [id number] [place] [address]- 9194 05 Oct, 2012 [facility] [address] [id number] [place] [address]- 0578 14 Sep, 2012 [facility] [address] [id number] [place] [address]- 7633 08 Sep, 2012 [facility] [address] [id number] [place] [address]- 0264 21 Aug, 2012 [facility] [place] [facility] [address] [id number] [place] [address]- 7641 16 Aug, 2012 [facility] [place] [facility] [address] [id number] [place] [address]- 2786 12 Aug, 2012 [facility] [address] [id number] [place] [address]- 0723 Aug, [facility] [address] [id number] [place] [address]- 9986 Aug, [facility] [place] [facility] [address] [id number] [place] [address] Jul, [facility] [address] [id number] [place] [address] Jul, [facility] [place] [facility] [address] [id number] [place] [address] Jul, [facility] [place] [facility] [address] [id number] [place] [address] Jul, [facility] [place] [facility] [address] [id number] [place] [address] 18 Jul, 2012 [facility] [address] [id number] [place] [address] 17 Jul, 2012 [facility] [place] [facility] [address] [id number] [place] [address] 14 Jul, 2012 [facility] [place] [facility] [address] [id number] [place] [address] 14 Jul, 2012 [facility] [place] [facility] [address] [id number] [place] [address] Jul, [facility] [place] [facility] [address] [id number] [place] [address] 06 Jul, 2012 [facility] [place] [facility] [address] [id number] [place] [address] 05 Jul, 2012 [facility] [place] [facility] [address] [id number] [place] [address] 05 Jul, 2012 [facility] [place] [facility] [address] [id number] [place] [address] 04 Jul, 2012 [facility] [place] [facility] [address] [id number] [place] [address] Jul, [facility] [place] [facility] [address] [id number] [place] [address] Jul, [facility] [place] [facility] [address] [id number] [place] [address] Jul, [facility] [place] [facility] [address] [id number] [place] [address] Jun, [facility] [place] [facility] [address] [id number] [place] [address] Jun, [facility] [place] [facility] [address] [id number] [place] [address] Jun, [facility] [place] [facility] [address] [id number] [place] [address] Jun, [facility] [place] [facility] [address] [id number] [place] [address] Jun, [facility] [place] [facility] [address] [id number] [place] [address] Jun, [facility] [place] [facility] [address] [id number] [place] [address] Jun, [facility] [place] [facility] [address] [id number] [place] [address] Jun, [facility] [place] [facility] [address] [id number] [place] [address] Jun, [facility] [place] [facility] [address] [id number] [place] [address] May, [facility] [place] [facility] [address] [id number] [place] [address] Mar, [facility] [place] [facility] [address] [id number] [place] [address] Mar, [facility] [place] [facility] [address] [id number] [place] [address] Mar, [facility] [place] [facility] [address] [id number] [place] [address] Mar, [facility] [place] [facility] [address] [id number] [place] [address] Jan, [facility] [place] [facility] [address] [id number] [place] [address] Jan, [facility] [place] [facility] [address] [id number] [place] [address] Jan, [facility] [place] [facility] [address] [id number] [place] [address] Jan, [facility] [place] [facility] [address] [id number] [place] [address] Jan, [facility] [place] [facility] [address] [id number] [place] [address] Jan, [facility] [place] [facility] [address] [id number] [place] [address] December, [facility] [place] [facility] [address] [id number] [place] [address] December, [facility] [place] [facility] [address] [id number] [place] [address] Nov, [facility] [place] [facility] [address] [id number] [place] [address] Nov, [facility] [place] [facility] [address] [id number] [place] [address] Oct, [facility] [place] [facility] [address] [id number] [place] [address] Oct, [facility] [place] [facility] [address] [id number] [place] [address] Oct, [facility] [place] [facility] [address] [id number] [place] [address] Oct, [facility] [place] [facility] [address] [id number] [place] [address] Aug, [facility] [place] [facility] [address] [id number] [place] [address] Aug, [facility] [place] [facility] [address] [id number] [place] [address] Jun, [facility] [place] [facility] [address] [id number] [place] [address] Jun, [facility] [place] [facility] [address] [id number] [place] [address] Jun, [facility] [place] [facility] [address] [id number] [place] [address] Jun, [facility] [place] [facility] [address] [id number] [place] [address] Jun, [facility] [place] [facility] [address] [id number] [place] [address] May, [facility] [place] [facility] [address] [id number] [place] [address] May, [facility] [place] [facility] [address] [id number] [place] [address] May, [facility] [place] [facility] [address] [id number] [place] [address] May, [facility] [place] [facility] [address] [id number] [place] [address] May, [facility] [place] [facility] [address] [id number] [place] [address] May, [facility] [place] [facility] [address] [id number] [place] [address] May, [facility] [place] [facility] [address] [id number] [place] [address] Mar, [facility] [place] [facility] [address] [id number] [place] [address] May, [facility] [place] [facility] [address] [id number] [place] [address] Jan, [facility] [place] [facility] [id number] [address] Jul, [facility] [id number] [address] Jun, [facility] [id number] [place] [address] Jun, [facility] [id number] [place] [address] Jun, [facility] [id number] [place] [address] Jun, [facility] [id number] [place] [address] Jun, [facility] [id number], [place] [address] May, [facility] [id number] [address] May, [facility] [id number] [address] May, [facility] [id number] [place] [address] Jul, IMMUNIZATIONS No Known Immunizations SOCIAL HISTORY Never Assessed REASON FOR VISIT leg pain from a fall behind left knee, pain runs up and down. Fell on her hip with leg straight out on Thursday10/30/17. CBrumbackRN PLAN OF CARE VITAL SIGNS Height 62 in 2017-11-02 Weight 162.1 lbs 2017-11-02 Temperature 98.5 degrees Fahrenheit 2017-11-02 Heart Rate 76 bpm 2017-11-02 Respiratory Rate 18 2017-11-02 BMI 29.65 kg/m2 2017-11-02 Blood pressure systolic 116 mmHg 2017-11-02 Blood pressure diastolic 78 mmHg 2017-11-02 MEDICATIONS Medication Instructions Dosage Frequency Start Date End Date Duration Status Glimepiride 1 MG Orally Once a day 1 tablet with breakfast or the first main meal of the day 24h May, 90 days Active Atorvastatin Calcium 10 mg Orally Once a day 1 tablet 24h May, 90 days Active Lisinopril 2.5 MG Orally Once a day 2 tablets 24h 90 days Active Aspir-81 81 MG Orally Once a day 1 tablet 24h Apr, Jan, 90 days Active BusPIRone HCl 15 MG Orally 3 times a day 1 tablet 8h 05 Aug, 2017 Active Naproxen 500 mg Orally every 12 hrs 1 tablet with food or milk as needed 12h Oct, Active Azelastine HCl 0.05 % Ophthalmic Twice a day 1 drop into affected eye 12h Oct, Active Flonase 50 MCG/ACT Nasally Once a day 1 spray in each nostril 24h Jul, 30 day(s) Not-Taking Tylenol 325 MG Orally every 4 hrs 2 tablets 4h Active Glucocard Expression Test 1 subcutaneously 2 times a day test 2 times per day 12h May, 12 months Active Melatonin 5 mg Orally take at bedtime 1 tablet Apr, 30 days Not-Taking Abilify 10 MG Orally Once a day [...]
--- OUTSIDE RECORDS SUMMARY | 2018-04-18 15:35 | XMS REPORT ---
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 Name Role Phone HEATHER Salinas Unavailable PROBLEMS Type Condition ICD9-CM Code DZO43-ZA Code Onset Dates Condition Status SNOMED Code Problem History of hypertension Z86.79 Active 836547499 Problem Elevated LDL cholesterol level E78.00 Active 945011695 Problem Personality disorder F60.9 Active 77976303 Problem Other chronic pain G89.29 Active 51783050 Problem Hypoglycemia E16.2 Active 667072856 Problem Acute seasonal allergic rhinitis, unspecified trigger J30.2 Active 162212212 Problem Type 2 diabetes mellitus without complication, without long-term current use of insulin E11.9 Active 718669984 Problem Primary insomnia F51.01 Active 8688912 Problem Acute non intractable tension-type headache G44.209 Active 335345781 Problem Generalized anxiety disorder F41.1 Active 97428446 Problem Bipolar disorder in remission F31.70 Active 95510874 Problem Family history of diabetes insipidus Z83.49 Active 014462321 Problem Abnormal CBC R79.89 Active 400730407 Problem Bipolar disorder, current episode mixed, mild F31.61 Active 770743894 Problem History of diabetes mellitus Z86.39 Active 472960964 Problem Overweight (BMI 25.0-29.9) E66.3 Active 555971475 Problem Sore throat J02.9 Active 225139304 ALLERGIES Substance Reaction Event Type Date Status MetFORMIN HCl ER nausea Drug Allergy Oct, Active Zyprexa rash Drug Allergy Oct, Active Cipro rash Drug Allergy Oct, Active ENCOUNTERS Encounter Location Date Diagnosis [facility] [address] [facility] [id number] [place] [address] Jan, Epigastric pain R10.13 and UTI symptoms R39.9 [facility] [id number] [place] [address] 17554- 0110 Jan, Posterior right knee pain M25.561 [place] [id number] [place] [address] 91783- 5545 Jan, Posterior right knee pain M25.561 [place] [id number] [place] [address] 84543- 8757 Jan, Scabies B86 [place] [id number] [place] [address] 23185- 4953 Jan, Bipolar disorder, current episode mixed, mild F31.61 and Personality disorder F60.9 [place] [id number] [place] [address] 14474- 7729 Jan, Cyst of ovary, unspecified laterality N83.209 [place] [place] [id number] [place] [address] 80782- 9914 December, Cyst of ovary, unspecified laterality N83.209 [place] [id number] [place] [address] 63281- 1557 December, [place] [id number] [place] [address] 42789- 3226 December, Dysuria R30.0 [place] [id number] [place] [address] 81303- 3279 December, [place] [id number] [place] [address] 62635- 9528 Nov, Bipolar disorder, current episode mixed, mild F31.61 and Personality disorder F60.9 [place] [id number] [place] [address] 66605- 0933 Nov, Elevated LDL cholesterol level E78.00 and Type 2 diabetes mellitus without complication, without long-term current use of insulin E11.9 [place] [address] [place] [address] 33877- 6916 Nov, Elevated LDL cholesterol level E78.00 and Type 2 diabetes mellitus without complication, without long-term current use of insulin E11.9 [place] [place] [id number] [place] [address] 60282- 5673 04 Nov, 2017 Other chronic pain G89.29 and Pain in left leg M79.605 [place] [address] 65807- 2550 02 Nov, 2017 Acute pain of left knee M25.562 ; Syncope, unspecified syncope type R55 and Hypoglycemia E16.2 [place] [address] 82379- 0442 Oct, Syncope, unspecified syncope type R55 [place] [address] 20731- 5231 Oct, Bipolar disorder, current episode mixed, mild F31.61 and Personality disorder F60.9 [place] [address] 56328- 1576 Oct, Lump of right breast N63.10 [place] [address] 41567- 3123 Oct, Generalized anxiety disorder F41.1 [place] [address] 41989- 6155 Oct, Generalized anxiety disorder F41.1 ; Bipolar disorder in remission F31.70 ; Bipolar disorder, current episode mixed, mild F31.61 and Primary insomnia F51.01 [place] [id number] [place] [address] 76817- 7528 Oct, Primary insomnia F51.01 and Lump of right breast N63.10 [place] [address] 56626- 7700 16 Oct, 2017 Enteritis K52.9 [facility] [id number] [place] [address] 67220 -1013 14 Oct, 2017 Allergic conjunctivitis of both eyes H10.13 and Acute non intractable tension-type headache G44.209 [place] [address] [place] [address] 41733- 5742 Oct, [place] [address] 39826- 1434 Oct, Bipolar disorder, current episode mixed, mild F31.61 [place] [id number] [place] [address] 14736- 2207 Sep, Right flank pain R10.9 and Thoracic spine pain M54.6 [place] [id number] [place] [address] 21030- 5481 16 Sep, 2017 Generalized anxiety disorder F41.1 and Bipolar disorder, current episode mixed, mild F31.61 [place] [id number] [place] [address] 54136- 4186 Sep, [place] [address] 77585- 6115 Sep, Generalized anxiety disorder F41.1 ; Bipolar disorder in remission F31.70 and Personality disorder F60.9 [place] [id number] [place] [address] 64457- 5718 Sep, Spasm of thoracic back muscle M62.830 ; Type 2 diabetes mellitus without complication, without long-term current use of insulin E11.9 and Generalized anxiety disorder F41.1 [place] [id number] [place] [address] 77606- 0981 Sep, Bipolar disorder, current episode mixed, mild F31.61 and Personality disorder F60.9 [place] [id number] [place] [address] 64951- 1143 Aug, [place] [id number] [place] [address] 59943- 0506 Aug, Bipolar disorder, current episode mixed, mild F31.61 and Personality disorder F60.9 [place] [id number] [place] [address] 10187- 2879 Aug, Type 2 diabetes mellitus without complication, without long- term current use of insulin E11.9 ; Generalized anxiety disorder F41.1 ; Bipolar disorder in remission F31.70 and Overweight (BMI 25.0-29.9) E66.3 [place] [address] 08545- 4802 Aug, Type 2 diabetes mellitus without complication, without long- term current use of insulin E11.9 ; Elevated LDL cholesterol level E78.00 and Bipolar disorder, current episode mixed, mild F31.61 [facility] [address] 58140 -6861 Jul, Vaginal discharge N89.8 ; Skin irritation R23.8 and Dysuria R30.0 [facility] [place] [address] 67903 -8872 Jul, Acute seasonal allergic rhinitis, unspecified trigger J30.2 and Chest pain, unspecified type R07.9 [place] [address] 75446- 6208 Jun, Bipolar disorder, current episode mixed, mild F31.61 [place] [address] 16120- 8046 Jun, [place] [address] 18065- 1153 Jun, Bipolar disorder, current episode mixed, mild F31.61 and Personality disorder F60.9 [place] [address] 29082- 0070 Jun, [address] 63891- 0357 Jun, Type 2 diabetes mellitus without complication, without long- term current use of insulin E11.9 and Dysuria R30.0 [place] [address] 52676- 4589 May, Bipolar disorder, current episode mixed, mild F31.61 ; Personality disorder F60.9 and Homeless Z59.0 [place] [id number] [place] [address] 47372- 2821 May, Type 2 diabetes mellitus without complication, without long- term current use of insulin E11.9 [place] [id number] [place] [address] 76004- 8105 May, History of hypertension Z86.79 [place] [address] 19248- 5616 May, [place] [id number] [place] [address] 23753- 4924 May, Type 2 diabetes mellitus without complication, without long- term current use of insulin E11.9 ; Elevated LDL cholesterol level E78.00 ; Low serum HDL R74.8 and Encounter for immunization Z23 [address] [address]- 0797 Apr, Encounter to establish care Z76.89 ; Abnormal CBC R79.89 ; History of hypertension Z86.79 ; Overweight (BMI 25.0-29.9) E66.3 ; Family history of diabetes insipidus Z83.49 ; Sore throat J02.9 and Tonsillitis with exudate J03.90 [place] [id number] [place] [address] 40952- 5063 Apr, Bipolar disorder, current episode mixed, mild F31.61 [place] [id number] [place] [address] 69172- 5601 Mar, [place] [id number] [place] [address] 15189- 9570 Mar, Bipolar disorder, current episode mixed, mild F31.61 [place] [id number] [place] [address] 79864- 7968 Mar, [place] [id number] [place] [address] 20812- 7502 Mar, Bipolar disorder in remission F31.70 [place] [address] [facility] [id number] [place] [address]- 9416 Jan, 2016 [facility] [id number] [place] [address]- 7266 Jan, [facility] [address] [id number] [place] [address] 2546 Oct, Generalized anxiety disorder F41.1 and Bipolar disorder in remission F31.70 [facility] [id number] [address] 2546 Oct, [facility] [address] [facility] [id number] [place] [address]- 4766 Oct, [facility] [address] [id number] [place] [address]- 6626 Oct, [facility] [address] [place] [address]- 7096 Oct, [facility] [address] [id number] [place] [address]- 4899 Jul, [facility] [address], [place] [address]- 8966 Jun, [facility] [address], [place] [address]- 2286 May, 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 and Generalized anxiety disorder F41.1 [facility] [address], [place] [address] 2546 Jan, [facility] [address] [facility] [id number] [address] 2546 Jan, [facility] [id number], [place] [address] 2546 Jan, 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 and Generalized anxiety disorder F41.1 [facility] [address] [place] [address]- 0566 Sep, [facility] [address], [place] [address]- 4405 Sep, [facility] [id number] [place] [address] 24077- 0470 Jul, 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 and Generalized anxiety disorder F41.1 [facility] [id number] [place] [address] 15764- 8239 Jul, Otalgia of right ear H92.01 [facility] [id number] [place] [address] 64880- 7897 Jun, [facility] [id number] [place] [address] 215923- 9716 Mar, [facility] [id number] [address]- 1968 Jan, [facility] [id number] [place] [address] 38166- 8295 Jan, [facility] [id number] [address]- 8093 Jan, Bipolar 1 disorder, mixed, moderate 296.62 and SHERRY ( generalized anxiety disorder) 300.02 [facility] [address], [place] [address]- 6258 Jan, [facility] [address], [place] [address]- 8781 Nov, [facility] [id number] [address]- 2280 Nov, [facility] [address], [place] [address]- 9259 Oct, [facility] [address], [place] [address]- 6686 Oct, [facility] [address], [place] [address]- 3074 Mar, [facility] [address] [place] [address]- 0903 Mar, [facility] [address] [id number] [place] [address]- 8869 Jan, [facility] [place] [facility] [address] [id number] [place] [address]- 0049 Jan, [facility] [address] [id number] [place] [address]- 7177 December, [facility] [place] [facility] [address] [id number] [place] [address]- 1134 December, [facility] [address] [id number] [place] [address]- 0889 December, [facility] [place] [facility] [address] [id number] [place] [address]- 4308 December, [facility] [address] [id number] [place] [address]- 0223 December, [facility] [address] [id number] [place] [address]- 4370 December, [facility] [place] [facility] [address] [id number] [place] [address]- 3970 December, [facility] [address] [id number] [place] [address]- 6925 December, [facility] [place] [facility] [address] [id number] [place] [address]- 6149 Nov, [facility] [place] [facility] [address] [id number] [place] [address]- 1886 Nov, [facility] [place] [facility] [address] [id number] [place] [address]- 0542 Oct, [facility] [place] [facility] [address] [id number] [place] [address]- 8236 Oct, [facility] [place] [facility] [address] [id number] [place] 6538 Oct, [facility] [address] [id number] [place] [address]- 9138 Oct, [facility] [place] [facility] [address] [id number] [place] [address]- 5601 Oct, [facility] [place] [facility] [address] [id number] [place] [address]- 1352 Sep, [facility] [place] [facility] [address] [id number] [place] [address]- 3462 Sep, [facility] [place] [facility] [address] [id number] [place] [address]- 8317 Sep, [facility] [place] [facility] [address] [id number] [place] [address]- 6150 Sep, [facility] [place] [facility] [address] [id number] [place] [address]- 5401 Aug, [facility] [place] [facility] [address] [id number] [place] [address]- 5536 Aug, [facility] [place] [facility] [address] [id number] [place] [address]- 0093 Aug, [facility] [place] [facility] [address] [id number] [place] [address]- 4225 Aug, [facility] [place] [facility] [address] [id number] [place] [address]- 7091 Aug, [facility] [place] [facility] [address] [id number], [place] [address]- 8494 16 Jul, 2013 [facility] [place] [facility] [address] [id number] [place] [address]- 4204 16 Jul, 2013 [facility] [place] [facility] [address] [id number] [place] [address]- 8060 11 Jul, 2013 [facility] [place] [facility] [address] [id number] [place] [address]- 6542 Jul, [facility] [place] [facility] [address] [id number] [place] [address]- 6324 Jun, [facility] [place] [facility] [address] [id number] [place] [address]- 4295 Jun, [facility] [place] [facility] [address] [id number] [place] [address]- 8697 May, [facility] [place] [facility] [address] [id number] [place] [address]- 5243 May, [facility] [place] [facility] [address] [id number] [place] [address]- 3357 May, [facility] [place] [facility] [address] [id number] [place] [address]- 2826 May, [facility] [place] [facility] [address] [id number] [place] [address]- 9671 May, [facility] [place] [facility] [address] [id number] [place] [address]- 6504 May, [facility] [place] [facility] [address] [id number] [place] [address]- 7668 May, [facility] [place] [facility] [address] [id number] [place] [address]- 6920 May, [facility] [place] [facility] [address] [id number] [place] [address]- 0546 May, [facility] [place] [facility] [address] [id number] [place] [address]- 5968 Apr, [facility] [place] [facility] [address] [id number] [place] [address] 2544 Apr, [facility] [place] [facility] [address] [id number] [place] [address]- 6431 Mar, [facility] [place] [facility] [address] [id number] [place] [address]- 8120 Mar, [facility] [place] [facility] [address] [id number] [place] [address]- 5974 Mar, [facility] [place] [facility] [address] [id number] [place] [address]- 8527 Mar, [facility] [address] [id number] [place] [address]- 9316 Mar, [facility] [place] [facility] [address] [id number] [place] [address]- 1488 Mar, [facility] [address] [id number] [place] [address]- 2038 Mar, [facility] [address] [id number] [place] [address]- 8495 Mar, [facility] [address] [id number] [place] [address]- 0164 Mar, [facility] [address] [id number] [place] [address]- 0798 Mar, [facility] [address] [id number] [place] [address]- 4953 Mar, [facility] [address] [id number] [place] [address]- 6027 Jan, [facility] [address] [id number] [place] [address]- 8025 Jan, [facility] [place] [facility] [address] [id number] [place] [address]- 4523 Jan, [facility] [place] [facility] [address] [id number] [place] [address]- 2824 December, [facility] [place] [facility] [address] [id number] [place] [address]- 3174 December, [facility] [place] [facility] [address] [id number] [place] [address]- 3796 Nov, [facility] [place] [facility] [address] [id number] [place] [address]- 4356 Nov, [facility] [place] [facility] [address] [id number] [place] [address]- 2546 28 Oct, 2012 [facility] [address] [id number] [place] [address]- 7222 26 Oct, 2012 [facility] [place] [facility] [address] [id number] [place] [address]- 7616 21 Oct, 2012 [facility] [address] [id number] [place] [address]- 7297 20 Oct, 2012 [facility] [place] [facility] [address] [id number] [place] [address]- 0506 19 Oct, 2012 [facility] [address] [id number] [place] [address]- 4877 19 Oct, 2012 [facility] [address] [id number] [place] [address]- 8143 17 Oct, 2012 [facility] [address] [id number] [place] [address]- 7608 16 Oct, 2012 [facility] [address] [id number] [place] [address]- 9373 14 Oct, 2012 [facility] [address] [id number] [place] [address]- 0811 13 Oct, 2012 [facility] [address] [id number] [place] [address]- 0818 05 Oct, 2012 [facility] [address] [id number] [place] [address]- 4567 14 Sep, 2012 [facility] [place] [facility] [address] [id number] [place] [address]- 2017 08 Sep, 2012 [facility] [place] [facility] [address] [id number] [place] [address]- 3074 21 Aug, 2012 [facility] [place] [facility] [address] [id number] [place] [address]- 9618 16 Aug, 2012 [facility] [place] [facility] [address] [id number] [place] [address]- 4510 12 Aug, 2012 [facility] [place] [facility] [address] [id number] [place] [address]- 5936 Aug, [facility] [address] [id number] [place] [address]- 2126 Aug, [facility] [address] [id number] [place] [address]- 3556 Jul, [facility] [address] [id number] [place] [address]- 2136 Jul, [facility] [address] [id number] [place] [address]- 1371 Jul, [facility] [address] [id number] [place] [address]- 5289 Jul, [facility] [address] [id number] [place] [address]- 0507 18 Jul, 2012 [facility] [address] [id number] [place] [address]- 1431 Jul, [facility] [address] [id number] [place] [address]- 6820 Jul, [facility] [address] [id number] [place] [address]- 9807 Jul, [facility] [address] [id number] [place] [address]- 2905 Jul, [facility] [place] [facility] [address] [id number] [place] [address]- 8059 Jul, [facility] [address] [id number] [place] [address] 05 Jul, 2012 [facility] [place] [facility] [address] [id number] [place] [address] 05 Jul, 2012 [facility] [place] [facility] [address] [id number] [place] [address] Jul, [facility] [place] [facility] [address] [id number] [place] [address] Jul, [facility] [place] [facility] [address] [id number] [place] [address] Jul, [facility] [place] [facility] [address] [id number] [place] [address] Jul, [facility] [place] [facility] [address] [id number] [place] [address] Jun, [facility] [place] [facility] [address] [id number] [place] [address] Jun, [facility] [place] [facility] [address] [id number] [place] [address] Jun, [facility] [place] [facility] [address] [id number] [place] [address] Jun, [facility] [place] [facility] [address] [id number] [place] [address] Jun, [facility] [place] [facility] [address] [id number] [place] [address] Jun, [facility] [place] [facility] [address] [id number] [place] [address] Jun, [facility] [place] [facility] [address] [id number] [place] [address] Jun, [facility] [place] [facility] [address] [id number] [place] [address] Jun, [facility] [place] [facility] [address] [id number], [place] [address] May, [facility] [place] [facility] [address] [id number] [place] [address] Mar, [facility] [place] [facility] [address] [id number], [place] [address] Mar, [facility] [place] [facility] [address] [id number] [place] [address] Mar, [facility] [place] [facility] [address] [id number] [place] [address] Mar, [facility] [place] [facility] [address] [id number] [place] [address] Jan, [facility] [place] [facility] [address] [id number] [place] [address] Jan, [facility] [place] [facility] [address] [id number] [place] [address] Jan, [facility] [place] [facility] [address] [id number] [place] [address] Jan, [facility] [place] [facility] [address] [id number] [place] [address] Jan, [facility] [place] [facility] [address] [id number] [place] [address] Jan, [facility] [place] [facility] [address] [id number] [place] [address] December, [facility] [place] [facility] [address] [id number] [place] [address] December, [facility] [place] [facility] [address] [id number] [place] [address] Nov, [facility] [place] [facility] [address] [id number] [place] [address] Nov, [facility] [place] [facility] [address] [id number] [place] [address] Oct, [facility] [place] [facility] [address] [id number] [place] [address] Oct, [facility] [place] [facility] [address] [id number] [place] [address] Oct, [facility] [place] [facility] [address] [id number] [place] [address] Oct, [facility] [place] [facility] [address] [id number] [place] [address] Aug, [facility] [place] [facility] [address] [id number] [place] [address] Aug, [facility] [place] [facility] [address] [id number] [place] [address] Jun, [facility] [place] [facility] [address] [id number] [place] [address] Jun, [facility] [place] [facility] [address] [id number] [place] [address] Jun, [facility] [place] [facility] [address] [id number] [place] [address] Jun, [facility] [place] [facility] [address] [id number] [place] [address] Jun, [facility] [place] [facility] [address] [id number] [place] [address] May, [facility] [place] [facility] [address] [id number] [place] [address] May, [facility] [place] [facility] [address] [id number] [place] [address] May, [facility] [place] [facility] [address] [id number] [place] [address] May, [facility] [place] [facility] [address] [id number] [place] [address] May, [facility] [place] [facility] [address] [id number] [place] [address] May, [facility] [place] [facility] [address] [id number] [place] [address] May, [facility] [place] [facility] [address] [id number] [place] [address] Mar, [facility] [place] [facility] [address] [id number] [place] [address] May, [facility] [place] [facility] [address] [id number] [place] [address] Jan, [facility] [id number] [address] Jul, [facility] [id number] [address] Jun, [facility] [id number] [address] Jun, [facility] [id number] [address] Jun, [facility] [id number], [place] [address] Jun, [facility] [id number] [place] [address] Jun, [facility] [id number] [place] [address] May, [facility] [id number] [place] [address] May, [facility] [id number], [place] [address] May, [facility] [id number], [place] [address] Jul, IMMUNIZATIONS No Known Immunizations SOCIAL HISTORY Never Assessed REASON FOR VISIT Fainting, at work when the patient blacked out and is experiencing a headache., the fainting occured earlier today David Wong MA PLAN OF CARE Activity Details Follow Up prn Reason: VITAL SIGNS Height 62 in 2017-10-30 Weight 162 lbs 2017-10-30 Temperature 98.6 degrees Fahrenheit 2017-10-30 Heart Rate 80 bpm 2017-10-30 Respiratory Rate 18 2017-10-30 BMI 29.63 kg/m2 2017-10-30 Blood pressure systolic 108 mmHg 2017-10-30 Blood pressure diastolic 74 mmHg 2017-10-30 MEDICATIONS Medication Instructions Dosage Frequency Start Date End Date Duration Status Flonase 50 MCG/ACT Nasally Once a day 1 spray in each nostril 24h Jul, 30 day(s) Not-Taking Naproxen 500 mg Orally every 12 hrs 1 tablet with food or milk as needed 12h Oct, Not-Taking Atorvastatin Calcium 10 mg Orally Once a day 1 tablet 24h May, 90 days Active Azelastine HCl 0.05 % Ophthalmic Twice a day 1 drop into affected eye 12h Oct, Active BusPIRone HCl 15 MG Orally 3 times a day 1 tablet 8h Aug, Active Abilify 10 MG Orally Once a day at bedtime 1 tablet 30 days Active Aspir-81 81 MG Orally Once a day 1 tablet 24h Apr, Jan, 90 days Active Glucocard Expression Test 1 subcutaneously 2 times a day test 2 times per day 12h May, 12 months Active Melatonin 5 mg Orally take at bedtime 1 tablet Apr, 30 days Not-Taking Glimepiride 1 MG Orally Once a day 1 tablet with breakfast or the first main meal of the day 24h May, 90 days Active Lisinopril 2.5 MG Orally Once a day 2 tablets 24h 90 days Active RESULTS No Results [...]
--- OUTSIDE RECORDS SUMMARY | 2018-04-18 15:36 | XMS REPORT ---
Author Author CLAUDETTESREEKANTH Organization [facility] Address [address] [place] [address] Care Team Providers Care Anode Crew Supervisor Name Role Phone SREEKANTH WILKINS Unavailable PROBLEMS Type Condition ICD9-CM Code ZDP12-KU Code Onset Dates Condition Status SNOMED Code Problem History of hypertension Z86.79 Active 548848159 Problem Elevated LDL cholesterol level E78.00 Active 313563488 Problem Personality disorder F60.9 Active 72357032 Problem Other chronic pain G89.29 Active 47061215 Problem Hypoglycemia E16.2 Active 210124800 Problem Acute seasonal allergic rhinitis, unspecified trigger J30.2 Active 270883133 Problem Type 2 diabetes mellitus without complication, without long-term current use of insulin E11.9 Active 544510951 Problem Primary insomnia F51.01 Active 8810010 Problem Acute non intractable tension-type headache G44.209 Active 215639489 Problem Generalized anxiety disorder F41.1 Active 91374078 Problem Bipolar disorder in remission F31.70 Active 32325822 Problem Family history of diabetes insipidus Z83.49 Active 797565077 Problem Abnormal CBC R79.89 Active 003809065 Problem Bipolar disorder, current episode mixed, mild F31.61 Active 117482005 Problem History of diabetes mellitus Z86.39 Active 683677375 Problem Overweight (BMI 25.0-29.9) E66.3 Active 649332454 Problem Sore throat J02.9 Active 616261525 ALLERGIES No Information ENCOUNTERS Encounter Location Date Diagnosis [facility] [id number] [place] [address] 42321- 8979 Jan, Epigastric pain R10.13 and UTI symptoms R39.9 [facility] [address] [address] 48[address] Jan, Posterior right knee pain M25.561 [facility] [id number] [place] [address] 45070- 8623 Jan, Posterior right knee pain M25.561 [facility] [id number] [place] [address] 54553- 3971 Jan, Scabies B86 [facility] [id number] [place] [address] 78129- 0511 Jan, Bipolar disorder, current episode mixed, mild F31.61 and Personality disorder F60.9 [facility] [address] 87552- 3860 Jan, Cyst of ovary, unspecified laterality N83.209 [facility] [address] [place] 487265- 8461 December, Cyst of ovary, unspecified laterality N83.209 [facility] [address] 11628- 4400 December, [facility] [address] 62585- 2880 December, Dysuria R30.0 [facility] [id number] [place] [address] 49796- 0389 December, [facility] [id number] [place] [address] 05081- 8648 Nov, Bipolar disorder, current episode mixed, mild F31.61 and Personality disorder F60.9 [facility] [id number] [place] [address] 60548- 3702 Nov, Elevated LDL cholesterol level E78.00 and Type 2 diabetes mellitus without complication, without long-term current use of insulin E11.9 [facility] [id number] [place] [address] 70279- 6903 Nov, Elevated LDL cholesterol level E78.00 and Type 2 diabetes mellitus without complication, without long-term current use of insulin E11.9 [facility] [id number] [place] [address] 23028- 6908 Nov, Other chronic pain G89.29 and Pain in left leg M79.605 [facility] [id number] [place] [address] 25989- 4488 02 Nov, 2017 Acute pain of left knee M25.562 ; Syncope, unspecified syncope type R55 and Hypoglycemia E16.2 [facility] [id number] [place] [address] 02777- 1309 30 Oct, 2017 Syncope, unspecified syncope type R55 [facility] [address] 06472- 2172 Oct, Bipolar disorder, current episode mixed, mild F31.61 and Personality disorder F60.9 [facility] [address] 17542- 1737 Oct, Lump of right breast N63.10 [facility] [address] 80103- 5265 Oct, Generalized anxiety disorder F41.1 [facility] [address] 12246- 6563 Oct, Generalized anxiety disorder F41.1 ; Bipolar disorder in remission F31.70 ; Bipolar disorder, current episode mixed, mild F31.61 and Primary insomnia F51.01 [facility] [id number] [place] [address] 54558- 2369 Oct, Primary insomnia F51.01 and Lump of right breast N63.10 [facility] [id number] [place] [address] 16041- 0436 16 Oct, [address] [facility] [id number] [place] [address] 51071 -7286 14 Oct, 2017 Allergic conjunctivitis of both eyes H10.13 and Acute non intractable tension-type headache G44.209 [facility] [id number] [place] [address] 12892- 8275 14 Oct, 2017 [facility] [address] [place] [address]- 2784 Oct, Bipolar disorder, current episode mixed, mild F31.61 [facility] [id number] [place] [address] 93778- 9107 Sep, Right flank pain R10.9 and Thoracic spine pain M54.6 [facility] [id number] [place] [address] 94980- 8657 Sep, Generalized anxiety disorder F41.1 and Bipolar disorder, current episode mixed, mild F31.61 [facility] [id number] [place] [address] 32917- 3072 Sep, [facility] [id number] [place] [address] 98773- 0695 Sep, Generalized anxiety disorder F41.1 ; Bipolar disorder in remission F31.70 and Personality disorder F60.9 [facility] [id number] [place] [address] 26336- 1857 Sep, Spasm of thoracic back muscle M62.830 ; Type 2 diabetes mellitus without complication, without long-term current use of insulin E11.9 and Generalized anxiety disorder F41.1 [facility] [id number] [place] [address] 19241- 8252 Sep, Bipolar disorder, current episode mixed, mild F31.61 and Personality disorder F60.9 [facility] [id number] [place] [address] 71100- 0113 Aug, [facility] [id number] [place] [address] 29641- 0903 Aug, Bipolar disorder, current episode mixed, mild F31.61 and Personality disorder F60.9 [facility] [id number] [place] [address] 34583- 0354 05 Aug, 2017 Type 2 diabetes mellitus without complication, without long- term current use of insulin E11.9 ; Generalized anxiety disorder F41.1 ; Bipolar disorder in remission F31.70 and Overweight (BMI 25.0-29.9) E66.3 [facility] [address] 98923- 6718 Aug, Type 2 diabetes mellitus without complication, without long- term current use of insulin E11.9 ; Elevated LDL cholesterol level E78.00 and Bipolar disorder, current episode mixed, mild F31.61 [facility] [address] 85739 -4045 Jul, Vaginal discharge N89.8 ; Skin irritation R23.8 and Dysuria R30.0 [facility] [address] 54627 -8446 Jul, Acute seasonal allergic rhinitis, unspecified trigger J30.2 and Chest pain, unspecified type R07.9 [facility] [address] 23143- 9821 Jun, Bipolar disorder, current episode mixed, mild F31.61 [facility] [address] 48739- 3327 Jun, [facility] [address] 44102- 9245 Jun, Bipolar disorder, current episode mixed, mild F31.61 and Personality disorder F60.9 [facility] [address] 11658- 1176 Jun, [facility] [address] 00767- 3850 Jun, Type 2 diabetes mellitus without complication, without long- term current use of insulin E11.9 and Dysuria R30.0 [facility] [address] 44271- 6636 May, Bipolar disorder, current episode mixed, mild F31.61 ; Personality disorder F60.9 and Homeless Z59.0 [facility] [address] 75220- 4887 May, Type 2 diabetes mellitus without complication, without long- term current use of insulin E11.9 [facility] [id number] [place] [address] 87634- 4871 May, History of hypertension Z86.79 [facility] [id number] [place] [address] 38979- 2816 May, [facility] [id number] [place] [address] 85205- 9473 May, Type 2 diabetes mellitus without complication, without long- term current use of insulin E11.9 ; Elevated LDL cholesterol level E78.00 ; Low serum HDL R74.8 and Encounter for immunization Z23 [facility] [address] 21307- 0319 Apr, Encounter to establish care Z76.89 ; Abnormal CBC R79.89 ; History of hypertension Z86.79 ; Overweight (BMI 25.0-29.9) E66.3 ; Family history of diabetes insipidus Z83.49 ; Sore throat J02.9 and Tonsillitis with exudate J03.90 [facility] [id number] [place] [address] 17242- 9710 Apr, Bipolar disorder, current episode mixed, mild F31.61 [facility] [id number] [place] [address] 23611- 7380 Mar, [facility] [id number] [place] [address] 89815- 0241 Mar, Bipolar disorder, current episode mixed, mild F31.61 [facility] [id number] [place] [address] 55073- 1917 Mar, [facility] [id number] [place] [address] 10694- 5571 Mar, Bipolar disorder in remission F31.70 [facility] [id number] [place] [address] 56836- 9901 Jan, [facility] [address] 74877- 6026 Jan, [facility] [id number] 0118 Oct, Generalized anxiety disorder F41.1 and Bipolar disorder in remission F31.70 [facility] [id number] [place] [address]- 3646 Oct, [facility] [address] 8786 Oct, [facility] [address] [facility] [id number] [place] [address]- 9186 Oct, [facility] [address] [place] [address]- 3796 Oct, [facility] [address] [address]- 5409 Jul, [facility] [address] [address]- 5798 Jun, [facility] [id number] [address]- 4292 May, 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 and Generalized anxiety disorder F41.1 [facility] [address] [address]- 1275 Jan, [facility] [address] [address]- 3646 Jan, [facility] [address] [address]- 2544 Jan, 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 and Generalized anxiety disorder F41.1 [facility] [address] [address]- 6546 Sep, [facility] [address] 6326 Sep, [facility] [address] [place] [address] 72030- 8164 Jul, 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 and Generalized anxiety disorder F41.1 [facility] [id number] [place] [address] 011786- 5121 Jul, Otalgia of right ear H92.01 [facility] [id number] [place] [address] 73409- 2689 Jun, [facility] [id number] [place] [address] 427152- 7110 Mar, [facility] [id number] [place] [address] 27513- 7346 Jan, [facility] [id number] [place] [address] 42037- 9990 Jan, [facility] [id number] [place] [address] 08089- 2738 Jan, Bipolar 1 disorder, mixed, moderate 296.62 and SHERRY ( generalized anxiety disorder) 300.02 [facility] [id number] [place] [address] 44791- 9106 Jan, [facility] [id number] [place] [address] 73290- 3960 Nov, [facility] [address] [place] [address] 75516- 1628 Nov, [facility] [id number] [place] [address] 83050- 0936 Oct, [facility] [address] [place] [address] 27686- 8057 Oct, [facility] [id number] [place] [address] 62810- 4325 Mar, [facility] [address] [place] [address] 33200- 0262 Mar, [facility] [id number] [place] [address] 85191- 9058 Jan, [facility] [place] [facility] [address] [id number] [place] [address]- 2251 Jan, [facility] [place] [facility] [address] [id number] [place] [address]- 2010 December, [facility] [place] [facility] [address] [id number] [place] [address]- 5345 December, [facility] [place] [facility] [address] [id number] [place] [address]- 2594 December, [facility] [place] [facility] [address] [id number] [place] [address]- 0737 December, [facility] [place] [facility] [address] [id number] [place] [address]- 8417 December, [facility] [place] [facility] [address] [id number] [place] [address]- 8494 December, [facility] [place] [facility] [address] [id number] [place] [address]- 4076 December, [facility] [place] [facility] [address] [id number] [place] [address]- 3949 December, [facility] [place] [facility] [address] [id number] [place] [address]- 4457 Nov, [facility] [place] [facility] [address] [id number] [place] [address]- 0279 Nov, [facility] [place] [facility] [address] [id number] [place] [address]- 5917 Oct, [facility] [place] [facility] [address] [id number] [place] [address]- 2248 Oct, [facility] [place] [facility] [address] [id number] [place] [address]- 8807 Oct, [facility] [place] [facility] [address] [id number] [place] [address]- 6467 Oct, [facility] [place] [facility] [address] [id number] [place] [address]- 2803 Oct, [facility] [address] [id number] [place] [address]- 8391 Sep, [facility] [place] [facility] [address] [id number] [place] [address]- 6346 Sep, [facility] [place] [facility] [address] [id number] [place] [address]- 6136 Sep, [facility] [place] [facility] [address] [id number] [place] [address]- 5377 Sep, [facility] [place] [facility] [address] [id number] [place] 2633 Aug, [facility] [place] [facility] [address] [id number] [place] [address]- 1888 Aug, [facility] [place] [facility] [address] [id number] [place] [address]- 1180 Aug, [facility] [address] [id number] [place] [address]- 7288 Aug, [facility] [place] [facility] [address] [id number] [place] [address]- 2500 Aug, [facility] [place] [facility] [address] [id number] [place] 0227 16 Jul, 2013 [facility] [place] [facility] [address] [id number] [place] [address]- 7044 Jul, [facility] [place] [facility] [address] [id number] [place] [address]- 8763 Jul, [facility] [place] [facility] [address] [id number] [place] [address]- 5067 Jul, [facility] [place] [facility] [address] [id number] [place] [address]- 2546 Jun, [facility] [place] [facility] [address] [id number] [place] [address]- 4577 Jun, [facility] [place] [facility] [address] [id number] [place] [address]- 8121 May, [facility] [place] [facility] [address] [id number] [place] [address]- 8248 May, [facility] [place] [facility] [address] [id number] [place] 7763 May, [facility] [place] [facility] [address] [id number] [place] [address]- 0957 May, [facility] [place] [facility] [address] [id number] [place] [address]- 1357 May, [facility] [place] [facility] [address] [id number] [place] [address]- 4067 May, [facility] [place] [facility] [address] [id number] [place] [address]- 7316 May, [facility] [place] [facility] [address] [id number] [place] [address]- 9277 May, [facility] [place] [facility] [address] [id number] [place] [address]- 7575 May, [facility] [place] [facility] [address] [id number] [address]- 1211 Apr, [facility] [place] [facility] [address] [id number], [place] [address]- 1314 Apr, [facility] [place] [facility] [address] [id number], [place] [address]- 4091 Mar, [facility] [place] [facility] [address] [id number] [place] [address]- 1730 Mar, [facility] [place] [facility] [address] [id number] [place] [address]- 5139 Mar, [facility] [place] [facility] [address] [id number] [place] [address]- 0384 Mar, [facility] [place] [facility] [address] [id number] [place] [address]- 6954 Mar, [facility] [address] [id number] [place] [address]- 0607 Mar, [facility] [place] [facility] [address] [id number] [place] [address]- 4060 Mar, [facility] [place] [facility] [address] [id number] [place] [address]- 1714 Mar, [facility] [place] [facility] [address] [id number] [place] [address]- 2911 Mar, [facility] [place] [facility] [address] [id number] [place] [address]- 9385 Mar, [facility] [place] [facility] [address] [id number] [place] [address]- 2036 Mar, [facility] [address] [id number] [place] [address]- 7873 Jan, [facility] [place] [facility] [address] [id number] [place] [address]- 7334 Jan, [facility] [place] [facility] [address] [id number] [place] [address]- 9782 Jan, [facility] [place] [facility] [address] [id number] [place] [address]- 3767 December, [facility] [place] [facility] [address] [id number] [place] [address]- 1619 December, [facility] [place] [facility] [address] [id number] [place] [address]- 0744 Nov, [facility] [place] [facility] [address] [id number] [place] [address]- 3597 Nov, [facility] [place] [facility] [address] [id number] [place]47 Oct, [facility] [place] [facility] [address] [id number] [place] 0897 Oct, [facility] [place] [facility] [address] [id number] [place] [address]- 3426 21 Oct, 2012 [facility] [address] [id number] [place] [address]- 2131 20 Oct, 2012 [facility] [address] [id number] [place] [address]- 1449 19 Oct, 2012 [facility] [address] [id number] [place] [address]- 4869 19 Oct, 2012 [facility] [address] [id number] [place] [address]- 8150 17 Oct, 2012 [facility] [address] [id number] [place] [address]- 7583 16 Oct, 2012 [facility] [address] [id number] [place] [address]- 3385 14 Oct, 2012 [facility] [address] [id number] [place] [address]- 3800 13 Oct, 2012 [facility] [address] [id number] [place] [address]- 9122 05 Oct, 2012 [facility] [address] [id number] [place] [address]- 8687 14 Sep, 2012 [facility] [address] [id number] [place] [address]- 0068 08 Sep, 2012 [facility] [address] [id number] [place] [address]- 7477 Aug, [facility] [address] [id number] [place] [address]- 3118 16 Aug, 2012 [facility] [place] [facility] [address] [id number] [place] [address]- 4984 Aug, [facility] [place] [facility] [address] [id number] [place] [address]- 1382 09 Aug, 2012 [facility] [address] [id number] [place] [address]- 7663 07 Aug, 2012 [facility] [place] [facility] [address] [id number] [place] [address]- 2646 Jul, [facility] [place] [facility] [address] [id number] [place] [address]- 7536 Jul, [facility] [place] [facility] [address] [id number] [place] [address]- 3126 Jul, [facility] [place] [facility] [address] [id number] [place] [address]- 0576 19 Jul, 2012 [facility] [place] [facility] [address] [id number] [place] [address]- 2769 18 Jul, 2012 [facility] [place] [facility] [address] [id number] [place] [address]- 5614 17 Jul, 2012 [facility] [place] [facility] [address] [id number] [place] [address] 14 Jul, 2012 [facility] [place] [facility] [address] [id number] [place] [address] 14 Jul, 2012 [facility] [place] [facility] [address] [id number] [place] [address] 06 Jul, 2012 [facility] [place] [facility] [address] [id number] [place] [address] 06 Jul, 2012 [facility] [place] [facility] [address] [id number] [place] [address] 120[address] 05 Jul, 2012 [facility] [place] [facility] [address] [id number] [place] [address] 05 Jul, 2012 [facility] [place] [facility] [address] [id number] [place] [address] 04 Jul, 2012 [facility] [place] [facility] [address] [id number] [place] [address] 4[address] 04 Jul, 2012 [facility] [place] [facility] [address] [id number] [place] [address] 04 Jul, 2012 [facility] [place] [facility] [address] [id number] [place] [address] Jul, [facility] [place] [facility] [address] [id number] [place] [address] Jun, [facility] [place] [facility] [address] [id number] [place] [address] Jun, [facility] [place] [facility] [address] [id number] [place] [address]- [address] Jun, [facility] [place] [facility] [address] [id number] [place] [address]- [address] Jun, [facility] [place] [facility] [address] [id number] [place] [address] 9464 Jun, [facility] [place] [facility] [address] [id number] [place] [address] 79[address] Jun, [facility] [place] [facility] [address] [id number] [place] [address]- 76[address] Jun, [facility] [place] [facility] [address] [id number] [place] [address]- [address] Jun, [facility] [place] [facility] [address] [id number] [place] [address] Jun, [facility] [place] [facility] [address] [id number] [place] [address] May, [facility] [place] [facility] [address] [id number] [place] [address] Mar, [facility] [place] [facility] [address] [id number] [place] [address] Mar, [facility] [place] [facility] [address] [id number] [place] [address]- 46[address] Mar, [facility] [place] [facility] [address] [id number] [place] [address]- [address] Mar, [facility] [place] [facility] [address] [id number] [place] [address] Jan, [facility] [place] [facility] [address] [id number] [place] [address]- [address] Jan, [facility] [place] [facility] [address] [id number] [place] [address] Jan, [facility] [place] [facility] [address] [id number] [place] [address]- 2046 Jan, [facility] [place] [facility] [address] [id number] [place] [address]- 150[address] Jan, [facility] [place] [facility] [address] [id number] [place] [address] Jan, [facility] [place] [facility] [address] [id number] [place] [address]- [address] December, [facility] [place] [facility] [address] [id number] [place] [address] December, [facility] [place] [facility] [address] [id number] [place] [address] 365[address] Nov, [facility] [place] [facility] [address] [id number] [place] [address] Nov, [facility] [place] [facility] [address] [id number] [place] [address] Oct, [facility] [place] [facility] [address] [id number] [place] [address] 8317 Oct, [facility] [place] [facility] [address] [id number], [place] [address] Oct, [facility] [place] [facility] [address] [id number] [place] [address] Oct, [facility] [place] [facility] [address] [id number] [place] [address] Aug, [facility] [place] [facility] [address] [id number] [place] [address] Aug, [facility] [place] [facility] [address] [id number], [place] [address] Jun, [facility] [place] [facility] [address] [id number] [place] [address]- [address] Jun, [facility] [place] [facility] [address] [id number] [place] [address] Jun, [facility] [place] [facility] [address] [id number] [place] [address] Jun, [facility] [place] [facility] [address] [id number] [place] [address] Jun, [facility] [place] [facility] [address] [id number] [place] [address], [place] [address] May, [facility] [place] [facility] [address] [id number] [place] [address] May, [facility] [place] [facility] [address] [id number], [place] [address] May, [facility] [place] [facility] [address] [id number] [place] [address] May, [facility] [place] [facility] [address] [id number] [place] [address] May, [facility] [place] [facility] [address] [facility] [id number] [place] [address] May, [facility] [place] [facility] [address] [id number], [place] [address] May, [facility] [place] [facility] [address] [id number], [place] [address] Mar, [facility] [place] [facility] [address] [id number] [place] [address] May, [facility] [place] [facility] [address] [id number] [place] [address] Jan, [facility] [place] [facility] [address] [facility] [id number] [place] [address] Jul, [facility] [place] [facility] [id number] [address] Jun, 2009 [facility] [id number], [place] [address] Jun, [facility] [id number] [address] Jun, [facility] [id number], [place] [address] Jun, [facility] [id number], [place] [address] Jun, [facility] [id number] [place] [id number] May, [facility] [id number], [place] [address] May, [facility] [id number], [place] [address] May, [facility] [address] [id number], [place] [address] Jul, IMMUNIZATIONS No Known Immunizations SOCIAL HISTORY Never Assessed REASON FOR VISIT Eye Exam PLAN OF CARE VITAL SIGNS MEDICATIONS Unknown [...]
--- OUTSIDE RECORDS SUMMARY | 2018-04-18 15:36 | XMS REPORT ---
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 Name Role Phone ALEXANDRU ARACELIS Unavailable PROBLEMS Type Condition ICD9-CM Code FQG71-GL Code Onset Dates Condition Status SNOMED Code Problem History of hypertension Z86.79 Active 302461101 Problem Elevated LDL cholesterol level E78.00 Active 948626619 Problem Personality disorder F60.9 Active 17570139 Problem Other chronic pain G89.29 Active 86426883 Problem Hypoglycemia E16.2 Active 585657090 Problem Acute seasonal allergic rhinitis, unspecified trigger J30.2 Active 462947008 Problem Type 2 diabetes mellitus without complication, without long-term current use of insulin E11.9 Active 462551288 Problem Primary insomnia F51.01 Active 1631668 Problem Acute non intractable tension-type headache G44.209 Active 583082827 Problem Generalized anxiety disorder F41.1 Active 20270403 Problem Bipolar disorder in remission F31.70 Active 42015748 Problem Family history of diabetes insipidus Z83.49 Active 273678854 Problem Abnormal CBC R79.89 Active 095887058 Problem Bipolar disorder, current episode mixed, mild F31.61 Active 335516868 Problem History of diabetes mellitus Z86.39 Active 885871512 Problem Overweight (BMI 25.0-29.9) E66.3 Active 795393506 Problem Sore throat J02.9 Active 390197864 ALLERGIES No Information ENCOUNTERS Encounter Location Date Diagnosis [facility] [address] [address] Jan, Epigastric pain R10.13 and UTI symptoms R39.9 [facility] [address], [place] [address] Jan, Posterior right knee pain M25.561 [facility] [id number] [place] [address] 84088- 1917 Jan, Posterior right knee pain M25.561 [place] [address] [address]- 2431 Jan, Scabies B86 [facility] [id number] [place] [address] 22289- 4335 Jan, Bipolar disorder, current episode mixed, mild F31.61 and Personality disorder F60.9 [place] [address] [address]15- 4743 Jan, Cyst of ovary, unspecified laterality N83.209 [place] [address] [place] 116418- 3984 December, Cyst of ovary, unspecified laterality N83.209 [facility] [address] 67491- 6110 December, [place] [address] 43895- 3759 December, Dysuria R30.0 [facility] [facility] [address] 19589- 5204 December, [facility] [facility] [id number] [place] [address] 29039- 6582 Nov, Bipolar disorder, current episode mixed, mild F31.61 and Personality disorder F60.9 [facility] [id number] [place] [address] 17181- 4827 Nov, Elevated LDL cholesterol level E78.00 and Type 2 diabetes mellitus without complication, without long-term current use of insulin E11.9 [facility] [id number] [place] [address] 95650- 5817 Nov, Elevated LDL cholesterol level E78.00 and Type 2 diabetes mellitus without complication, without long-term current use of insulin E11.9 [facility] [address] 83762- 4093 Nov, Other chronic pain G89.29 and Pain in left leg M79.605 [facility] [id number] [place] [address] 56997- 9228 02 Nov, 2017 Acute pain of left knee M25.562 ; Syncope, unspecified syncope type R55 and Hypoglycemia E16.2 [place] [id number] [place] [address] 48251- 6436 30 Oct, 2017 Syncope, unspecified syncope type R55 [place] [address] 25314- 1293 Oct, Bipolar disorder, current episode mixed, mild F31.61 and Personality disorder F60.9 [facility] [address] 00837- 1123 Oct, Lump of right breast N63.10 [facility] [id number] [place] [address] 78966- 0865 Oct, Generalized anxiety disorder F41.1 [facility] [id number] [place] [address] 13205- 6680 Oct, Generalized anxiety disorder F41.1 ; Bipolar disorder in remission F31.70 ; Bipolar disorder, current episode mixed, mild F31.61 and Primary insomnia F51.01 [facility] [id number] [place] [address] 10015- 4518 Oct, Primary insomnia F51.01 and Lump of right breast N63.10 [facility] [id number] [place] [address] 47176- 3846 16 Oct, 2017 Enteritis K52.9 [facility] [id number] [place] [address] 88492 -6770 14 Oct, 2017 Allergic conjunctivitis of both eyes H10.13 and Acute non intractable tension-type headache G44.209 [place] [id number] [place] [address] 65841- 9005 14 Oct, 2017 [place] [id number] [place] [address] 5501 Oct, Bipolar disorder, current episode mixed, mild F31.61 [facility] [facility] [address] 63438- 7942 Sep, Right flank pain R10.9 and Thoracic spine pain M54.6 [facility] [id number] [place] [address] 98495- 8917 Sep, Generalized anxiety disorder F41.1 and Bipolar disorder, current episode mixed, mild F31.61 [facility] [id number] [place] [address] 80063- 6374 Sep, [place] [id number] [place] [address] 80586- 4077 Sep, Generalized anxiety disorder F41.1 ; Bipolar disorder in remission F31.70 and Personality disorder F60.9 [place] [id number] [place] [address] 61193- 5311 Sep, Spasm of thoracic back muscle M62.830 ; Type 2 diabetes mellitus without complication, without long-term current use of insulin E11.9 and Generalized anxiety disorder F41.1 [place] [id number] [place] [address] 40223- 8406 Sep, Bipolar disorder, current episode mixed, mild F31.61 and Personality disorder F60.9 [facility] [id number] [place] [address] 02597- 1033 Aug, [place] [id number] [place] [address] 18367- 4089 Aug, Bipolar disorder, current episode mixed, mild F31.61 and Personality disorder F60.9 [place] [id number] [place] [address] Aug, Type 2 diabetes mellitus without complication, without long- term current use of insulin E11.9 ; Generalized anxiety disorder F41.1 ; Bipolar disorder in remission F31.70 and Overweight (BMI 25.0-29.9) E66.3 [place] [address] 10132- 4776 Aug, Type 2 diabetes mellitus without complication, without long- term current use of insulin E11.9 ; Elevated LDL cholesterol level E78.00 and Bipolar disorder, current episode mixed, mild F31.61 [facility] WALK IN [facility] [address] 98[address] -1613 Jul, Vaginal discharge N89.8 ; Skin irritation R23.8 and Dysuria R30.0 [facility] WALK IN [facility] [address] 32375 -9213 Jul, Acute seasonal allergic rhinitis, unspecified trigger J30.2 and Chest pain, unspecified type R07.9 [place] [address] 28344- 5740 Jun, Bipolar disorder, current episode mixed, mild F31.61 [place] [address] 87453- 0404 Jun, [place] [address] 62212- 9727 Jun, Bipolar disorder, current episode mixed, mild F31.61 and Personality disorder F60.9 [place] [address] 00428- 6601 Jun, [place] [address] 12164- 0688 Jun, Type 2 diabetes mellitus without complication, without long- term current use of insulin E11.9 and Dysuria R30.0 [place] [address] 91301- 6949 May, Bipolar disorder, current episode mixed, mild F31.61 ; Personality disorder F60.9 and Homeless Z59.0 [place] [address] 27156- 9501 May, Type 2 diabetes mellitus without complication, without long- term current use of insulin E11.9 [place] [id number] [place] [address] 22006- 5725 May, History of hypertension Z86.79 [place] [id number] [place] [address] 53637- 7982 May, [place] [address] 68620- 7197 May, Type 2 diabetes mellitus without complication, without long- term current use of insulin E11.9 ; Elevated LDL cholesterol level E78.00 ; Low serum HDL R74.8 and Encounter for immunization Z23 [place] [address] 05696- 6756 Apr, Encounter to establish care Z76.89 ; Abnormal CBC R79.89 ; History of hypertension Z86.79 ; Overweight (BMI 25.0-29.9) E66.3 ; Family history of diabetes insipidus Z83.49 ; Sore throat J02.9 and Tonsillitis with exudate J03.90 [place] [address] 81687- 6943 Apr, Bipolar disorder, current episode mixed, mild F31.61 [place] [id number] [place] [address] 71483- 8339 Mar, [place] [id number] [place] [address] 65333- 3172 Mar, Bipolar disorder, current episode mixed, mild F31.61 [place] [id number] [place] [address] 81413- 6369 Mar, [address] [address]10- 7756 Mar, Bipolar disorder in remission F31.70 [place] [id number] [place] [address] 26759- 8738 Jan, [place] [address] [place] [address] 2546 Jan, [facility] [address] [facility] [id number] [place] [address]- 5576 Oct, Generalized anxiety disorder F41.1 and Bipolar disorder in remission F31.70 [facility] [id number] [place] [address] 2546 Oct, [facility] [address] [place] [address]- 0326 Oct, [facility] [address] [facility] [id number] [place] [address]- 1676 Oct, [facility] [address] [place] [address]- 4736 Oct, [facility] [address] [place] [address]- 6566 Jul, [facility] [address], [place] [address]- 2376 Jun, [facility] [id number] 2816 May, 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 and Generalized anxiety disorder F41.1 [facility] [address] [address]- 5916 Jan, [facility] [address] [address] 2546 Jan, [facility] [id number] [address] 2546 Jan, 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 and Generalized anxiety disorder F41.1 [facility] [address] [address] 2546 Sep, [facility] [id number] [address] 2546 Sep, [facility] [address] [place] [address] 82197- 1169 Jul, 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 and Generalized anxiety disorder F41.1 [facility] [id number] [place] [address] 25090- 6970 Jul, Otalgia of right ear H92.01 [facility] [id number] [place] [address] 56004- 1924 Jun, [facility] [id number] [place] [address] 906622- 3677 Mar, [facility] [id number] [place] [address] 20563- 0191 Jan, [facility] [id number] [place] [address] 88402- 4969 Jan, [facility] [id number] [place] [address] 18305- 7285 Jan, Bipolar 1 disorder, mixed, moderate 296.62 and SHERRY ( generalized anxiety disorder) 300.02 [facility] [id number] [place] [address] 76283- 5348 Jan, [facility] [id number] [place] [address] 03063- 5811 Nov, [facility] [id number] [place] [address] 70572- 0153 Nov, [facility] [id number] [place] [address] 23476- 7751 Oct, [facility] [id number] [place] [address] 81487- 5619 Oct, [facility] [id number] [place] [address] 93543- 7906 Mar, [facility] [id number] [place] [address] 29052- 9943 Mar, [facility] [id number] [place] [address] 07029- 7628 Jan, [facility] [place] [facility] [address] [id number] [place] [address]- 5265 Jan, [facility] [place] [facility] [address] [id number] [place] [address]- 9842 December, [facility] [place] [facility] [address] [id number] [place] [address]- 3535 December, [facility] [place] [facility] [address] [id number] [place] [address]- 8122 December, [facility] [place] [facility] [address] [id number] [place] [address]- 9729 December, [facility] [place] [facility] [address] [id number] [place] [address]- 7691 December, [facility] [place] [facility] [address] [id number] [place] [address]- 6708 December, [facility] [place] [facility] [address] [id number] [place] [address]- 5984 December, [facility] [place] [facility] [address] [id number] [place] [address]- 3550 December, [facility] [place] [facility] [address] [id number] [place] [address]- 9845 Nov, [facility] [place] [facility] [address] [id number] [place] [address]- 3338 Nov, [facility] [place] [facility] [address] [id number] [place] [address]- 0735 Oct, [facility] [place] [facility] [address] [id number] [place] [address]- 5871 Oct, [facility] [place] [facility] [address] [id number] [place] [address]- 2412 Oct, [facility] [place] [facility] [address] [id number] [place] [address]- 3783 Oct, [facility] [place] [facility] [address] [id number] [place] [address]- 1892 Oct, [facility] [place] [facility] [address] [id number] [place] [address]- 7470 Sep, [facility] [place] [facility] [address] [id number] [place] 0636 Sep, [facility] [place] [facility] [address] [id number] [place] [address]- 8656 Sep, [facility] [place] [facility] [address] [id number] [place] [address]- 9951 Sep, [facility] [place] [facility] [address] [id number] [place] [address]- 8562 Aug, [facility] [place] [facility] [address] [id number] [place] [address]- 1990 Aug, [facility] [place] [facility] [address] [id number] [place] [address]- 5700 Aug, [facility] [place] [facility] [address] [id number] [place] [address]- 9891 Aug, [facility] [place] [facility] [address] [id number] [place] [address]- 9902 Aug, [facility] [place] [facility] [address] [id number] [place] [address]- 5439 16 Jul, 2013 [facility] [place] [facility] [address] [id number] [place] [address]- 6769 Jul, [facility] [place] [facility] [address] [id number] [place] [address]- 7407 Jul, [facility] [place] [facility] [address] [id number] [place] [address]- 0167 Jul, [facility] [place] [facility] [address] [id number] [place] [address]- 4696 Jun, [facility] [place] [facility] [address] [id number] [place] [address]- 2586 Jun, [facility] [place] [facility] [address] [id number] [place] [address]- 4250 May, [facility] [place] [facility] [address] [id number] [place] [address]- 6764 May, [facility] [place] [facility] [address] [id number] [place] [address]- 2661 May, [facility] [place] [facility] [address] [id number] [place] [address]- 7706 May, [facility] [place] [facility] [address] [id number] [place] [address]- 9325 May, [facility] [place] [facility] [address] [id number] [place] [address]- 3236 May, [facility] [place] [facility] [address] [id number] [place] [address]- 9741 May, [facility] [place] [facility] [address] [id number] [place] [address]- 2235 May, [facility] [place] [facility] [address] [id number] [place] [address]- 5923 May, [facility] [place] [facility] [address] [id number] [place] [address]- 7653 Apr, [facility] [place] [facility] [address] [id number] [address]- 2926 Apr, [facility] [place] [facility] [address] [id number], [place] [address]- 7362 Mar, [facility] [place] [facility] [address] [id number] [place] [address]- 4804 Mar, [facility] [place] [facility] [address] [id number], [place] [address]- 4912 Mar, [facility] [place] [facility] [address] [id number] [place] [address]- 1299 Mar, [facility] [place] [facility] [address] [id number] [place] [address]- 7995 Mar, [facility] [address] [id number] [place] [address]- 2611 Mar, [facility] [place] [facility] [address] [id number] [place] 6127 Mar, [facility] [address] [id number] [place] [address]- 3995 Mar, [facility] [place] [facility] [address] [id number] [place] [address]- 4859 Mar, [facility] [place] [facility] [address] [id number] [place] [address]- 6448 Mar, [facility] [place] [facility] [address] [id number] [place] [address]- 0514 Mar, [facility] [address] [id number] [place] [address]- 4973 Jan, [facility] [place] [facility] [address] [id number] [place] [address]- 4053 Jan, [facility] [place] [facility] [address] [id number] [place] [address]- 5515 Jan, [facility] [place] [facility] [address] [id number] [place] [address]- 1281 December, [facility] [place] [facility] [address] [id number] [place] [address]- 9778 December, [facility] [place] [facility] [address] [id number] [place] [address]- 5034 Nov, [facility] [place] [facility] [address] [id number] [place] [address]- 2256 Nov, [facility] [place] [facility] [address] [id number] [place] 6888 Oct, [facility] [place] [facility] [address] [id number] [place] [address]- 2115 Oct, [facility] [place] [facility] [address] [id number] [place] [address]- 7293 21 Oct, 2012 [facility] [address] [id number] [place] 3793 20 Oct, 2012 [facility] [address] [id number] [place] 3640 19 Oct, 2012 [facility] [address] [id number] [place] [address]- 4166 19 Oct, 2012 [facility] [address] [id number] [place] [address]- 1709 17 Oct, 2012 [facility] [address] [id number] [place] [address]- 4915 16 Oct, 2012 [facility] [address] [id number] [place] [address]- 3728 14 Oct, 2012 [facility] [address] [id number] [place] [address]- 6853 13 Oct, 2012 [facility] [address] [id number] [place] [address]- 7501 05 Oct, 2012 [facility] [address] [id number] [place] [address]- 8506 14 Sep, 2012 [facility] [address] [id number] [place] [address]- 8144 08 Sep, 2012 [facility] [address] [id number] [place] [address]- 3659 Aug, [facility] [address] [id number] [place] [address]- 7137 16 Aug, 2012 [facility] [place] [facility] [address] [id number] [place] [address]- 4066 Aug, [facility] [address] [id number] [place] [address]- 5716 09 Aug, 2012 [facility] [address] [id number] [address]- 4232 07 Aug, 2012 [facility] [address] [id number] [place] [address]- 4766 Jul, [facility] [place] [facility] [address] [id number] [place] [address]- 4066 Jul, [facility] [address] [id number] [place] [address] Jul, [facility] [place] [facility] [address] [id number] [place] [address] 19 Jul, 2012 [facility] [address] [id number] [place] [address] 18 Jul, 2012 [facility] [address] [id number] [place] [address] 17 Jul, 2012 [facility] [address] [id number] [place] [address] 14 Jul, 2012 [facility] [place] [facility] [address] [id number] [place] [address] 14 Jul, 2012 [facility] [address] [id number] [place] [address] 06 Jul, 2012 [facility] [place] [facility] [address] [id number] [place] [address] 06 Jul, 2012 [facility] [place] [facility] [address] [id number] [place] [address] 05 Jul, 2012 [facility] [place] [facility] [address] [id number] [place] [address] 05 Jul, 2012 [facility] [place] [facility] [address] [id number] [place] [address] 04 Jul, 2012 [facility] [place] [facility] [address] [id number] [place] [address] 04 Jul, 2012 [facility] [place] [facility] [address] [id number] [place] [address] 04 Jul, 2012 [facility] [place] [facility] [address] [id number] [place] [address] Jul, [facility] [place] [facility] [address] [id number] [place] [address] Jun, [facility] [place] [facility] [address] [id number] [place] [address] Jun, [facility] [place] [facility] [address] [id number] [place] [address] Jun, [facility] [place] [facility] [address] [id number] [place] [address] Jun, [facility] [place] [facility] [address] [id number] [place] [address] Jun, [facility] [place] [facility] [address] [id number] [place] [address] Jun, [facility] [place] [facility] [address] [id number] [place] [address]- [address] Jun, [facility] [place] [facility] [address] [id number] [place] [address]- [address] Jun, [facility] [place] [facility] [address] [id number] [place] [address] Jun, [facility] [place] [facility] [address] [id number] [place] [address] May, [facility] [place] [facility] [address] [id number] [place] [address] Mar, [facility] [place] [facility] [address] [id number] [place] [address] Mar, [facility] [place] [facility] [address] [id number] [place] [address] Mar, [facility] [place] [facility] [address] [id number] [place] [address]- [address] Mar, [facility] [place] [facility] [address] [id number] [place] [address]- [address] Jan, [facility] [place] [facility] [address] [id number] [place] [address]- 2013 Jan, [facility] [place] [facility] [address] [id number] [place] [address]- [address] Jan, [facility] [place] [facility] [address] [id number] [place] [address] Jan, [facility] [place] [facility] [address] [id number] [place] [address] Jan, [facility] [place] [facility] [address] [id number] [place] [address] Jan, [facility] [place] [facility] [address] [id number] [place] [address] December, [facility] [place] [facility] [address] [id number] [place] [address] December, [facility] [place] [facility] [address] [id number] [place] [address] Nov, [facility] [place] [facility] [address] [id number] [place] [address] Nov, [facility] [place] [facility] [address] [id number] [place] [address] Oct, [facility] [place] [facility] [address] [id number] [place] [address] Oct, [facility] [place] [facility] [address] [id number] [place] [address] Oct, [facility] [place] [facility] [address] [id number] [place] [address] Oct, [facility] [place] [facility] [address] [id number] [place] [address] Aug, [facility] [place] [facility] [address] [id number] [place] [address] Aug, [facility] [place] [facility] [address] [id number] [place] [address] Jun, [facility] [place] [facility] [address] [id number] [place] [address] Jun, [facility] [place] [facility] [address] [id number] [place] [address] Jun, [facility] [place] [facility] [address] [id number] [place] [address] Jun, [facility] [place] [facility] [address] [id number] [place] [address] Jun, [facility] [place] [facility] [address] [id number] [place] [address] May, [facility] [place] [facility] [address] [id number] [place] [address] May, [facility] [place] [facility] [address] [id number] [place] [address] May, [facility] [place] [facility] [address] [id number] [place] [address] May, [facility] [place] [facility] [address] [id number] [place] [address] May, [facility] [place] [facility] [address] [id number] [place] [address] May, [facility] [place] [facility] [address] [id number] [place] [address] May, [facility] [place] [facility] [address] [id number] [place] [address] Mar, [facility] [place] [facility] [address] [id number] [place] [address] May, [facility] [place] [facility] [address] [id number] [place] [address] Jan, [facility] [place] [facility] [address] [id number] [place] [address] Jul, [facility] [place] [facility] [id number] [address] Jun, [facility] [id number] [place] [address] Jun, [facility] [address] [facility] [id number], [place] [address] Jun, [facility] [address] [facility] [id number], [place] [address] Jun, [facility] [address] [facility] [id number], [place] [address] Jun, [facility] [id number], [place] [address] May, [facility] [id number] [address] May, [facility] [id number] [address] May, [facility] [id number], [place] [address] Jul, IMMUNIZATIONS No Known Immunizations SOCIAL HISTORY Never Assessed REASON FOR VISIT Psychiatric f/u PLAN OF CARE Activity Details Follow Up 4 Weeks Reason: VITAL SIGNS MEDICATIONS Medication Instructions Dosage Frequency Start Date End Date Duration Status Lisinopril 2.5 MG Orally Once a day 2 tablets 24h 90 days Active Glucocard Expression Test 1 subcutaneously 2 times a day test 2 times per day 12h May, 12 months Active Atorvastatin Calcium 10 mg Orally Once a day 1 tablet 24h May, 90 days Active Glimepiride 1 MG Orally Once a day 1 tablet with breakfast or the first main meal of the day 24h May, 90 days Active Flonase 50 MCG/ACT Nasally Once a day 1 spray in each nostril 24h Jul, 30 day(s) Not-Taking Abilify 5 MG Orally Once a day at bedtime 1 tablet Active Melatonin 5 mg Orally take at bedtime 1 tablet Apr, 30 days Not-Taking Abilify 10 MG Orally Once a day at bedtime 1 tablet 30 days Active BusPIRone HCl 15 MG Orally 3 times a day 1 tablet 8h 05 Aug, 2017 Active Ambien 5 mg Orally Once a day 1 tablet at bedtime 24h 20 Oct, 2017 30 days Active Aspir-81 81 MG Orally Once a day 1 tablet 24h 26 Apr, 2017 Jan, 90 days Active Azelastine HCl 0.05 % Ophthalmic Twice a day 1 drop into affected eye 12h Oct, Active Naproxen 500 mg Orally every 12 hrs 1 tablet with food or milk as needed 12h Oct, Not-Taking RESULTS No Results PROCEDURES No Known [...]
--- OUTSIDE RECORDS SUMMARY | 2018-04-18 15:37 | XMS REPORT ---
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 Name Role Phone SREEKANTH WILKINS Unavailable PROBLEMS Type Condition ICD9-CM Code OTR58-MX Code Onset Dates Condition Status SNOMED Code Problem History of hypertension Z86.79 Active 773911984 Problem Elevated LDL cholesterol level E78.00 Active 590259795 Problem Personality disorder F60.9 Active 89744065 Problem Other chronic pain G89.29 Active 98187838 Problem Hypoglycemia E16.2 Active 618762527 Problem Acute seasonal allergic rhinitis, unspecified trigger J30.2 Active 526062652 Problem Type 2 diabetes mellitus without complication, without long-term current use of insulin E11.9 Active 985960851 Problem Primary insomnia F51.01 Active 3478907 Problem Acute non intractable tension-type headache G44.209 Active 040582390 Problem Generalized anxiety disorder F41.1 Active 54941463 Problem Bipolar disorder in remission F31.70 Active 38011886 Problem Family history of diabetes insipidus Z83.49 Active 602430843 Problem Abnormal CBC R79.89 Active 801839431 Problem Bipolar disorder, current episode mixed, mild F31.61 Active 666773266 Problem History of diabetes mellitus Z86.39 Active 855030287 Problem Overweight (BMI 25.0-29.9) E66.3 Active 583650020 Problem Sore throat J02.9 Active 758683149 ALLERGIES No Information ENCOUNTERS Encounter Location Date Diagnosis [facility] [id number] [place] [address] 29660- 8583 Jan, UTI symptoms R39.9 and Epigastric pain R10.13 [facility] [id number] [place] [address] 36860- 0724 Jan, Posterior right knee pain M25.561 [facility] [id number] [place] [address] 31469- 6404 Jan, Posterior right knee pain M25.561 [facility] [id number] [place] [address] 94342- 6102 Jan, Scabies B86 [facility] [id number] [place] [address] 09403- 5558 Jan, Bipolar disorder, current episode mixed, mild F31.61 and Personality disorder F60.9 [facility] [address] 57336- 8071 Jan, Cyst of ovary, unspecified laterality N83.209 [facility] [address] [place] 261914- 5648 December, Cyst of ovary, unspecified laterality N83.209 [facility] [address] 89906- 3559 December, [facility] [address] 08531- 8794 December, Dysuria R30.0 [facility] [id number] [place] [address] 56850- 0370 December, [facility] [id number] [place] [address] 67032- 0984 Nov, Bipolar disorder, current episode mixed, mild F31.61 and Personality disorder F60.9 [facility] [id number] [place] [address] 83195- 3497 Nov, Elevated LDL cholesterol level E78.00 and Type 2 diabetes mellitus without complication, without long-term current use of insulin E11.9 [facility] [id number] [place] [address] 67590- 2042 Nov, Elevated LDL cholesterol level E78.00 and Type 2 diabetes mellitus without complication, without long-term current use of insulin E11.9 [facility] [id number] [place] [address] 26516- 0409 Nov, Other chronic pain G89.29 and Pain in left leg M79.605 [facility] [id number] [place] [address] 43988- 4344 02 Nov, 2017 Acute pain of left knee M25.562 ; Syncope, unspecified syncope type R55 and Hypoglycemia E16.2 [facility] [id number] [place] [address] 60252- 4542 30 Oct, 2017 Syncope, unspecified syncope type R55 [facility] [address] 25129- 0424 Oct, Bipolar disorder, current episode mixed, mild F31.61 and Personality disorder F60.9 [facility] [address] 42166- 4406 Oct, Lump of right breast N63.10 [facility] [address] 69068- 8817 Oct, Generalized anxiety disorder F41.1 [facility] [address] 02946- 2177 Oct, Generalized anxiety disorder F41.1 ; Bipolar disorder in remission F31.70 ; Bipolar disorder, current episode mixed, mild F31.61 and Primary insomnia F51.01 [facility] [id number] [place] [address] 53855- 5645 Oct, Primary insomnia F51.01 and Lump of right breast N63.10 [facility] [id number] [place] [address] 22258- 1664 16 Oct, 2017 Enteritis K52.9 [facility] [id number] [place] [address] 61204 -7853 14 Oct, 2017 Allergic conjunctivitis of both eyes H10.13 and Acute non intractable tension-type headache G44.209 [facility] [id number] [place] [address] 21900- 2547 14 Oct, 2017 [facility] [address] [place] [address]- 9362 Oct, Bipolar disorder, current episode mixed, mild F31.61 [facility] [id number] [place] [address] 62097- 8412 Sep, Right flank pain R10.9 and Thoracic spine pain M54.6 [facility] [id number] [place] [address] 28399- 9318 Sep, Generalized anxiety disorder F41.1 and Bipolar disorder, current episode mixed, mild F31.61 [facility] [id number] [place] [address] 09398- 1231 Sep, [facility] [id number] [place] [address] 99202- 5260 Sep, Generalized anxiety disorder F41.1 ; Bipolar disorder in remission F31.70 and Personality disorder F60.9 [facility] [id number] [place] [address] 78667- 6583 Sep, Spasm of thoracic back muscle M62.830 ; Type 2 diabetes mellitus without complication, without long-term current use of insulin E11.9 and Generalized anxiety disorder F41.1 [facility] [id number] [place] [address] 00132- 2786 Sep, Bipolar disorder, current episode mixed, mild F31.61 and Personality disorder F60.9 [facility] [address] [place] [address] 15381- 8511 Aug, [facility] [id number] [place] [address] 96411- 3780 Aug, Bipolar disorder, current episode mixed, mild F31.61 and Personality disorder F60.9 [facility] [id number] [place] [address] 67144- 0543 05 Aug, 2017 Type 2 diabetes mellitus without complication, without long- term current use of insulin E11.9 ; Generalized anxiety disorder F41.1 ; Bipolar disorder in remission F31.70 and Overweight (BMI 25.0-29.9) E66.3 [facility] [address] 70491- 9639 Aug, Type 2 diabetes mellitus without complication, without long- term current use of insulin E11.9 ; Elevated LDL cholesterol level E78.00 and Bipolar disorder, current episode mixed, mild F31.61 [facility] [address] 36136 -5720 Jul, Vaginal discharge N89.8 ; Skin irritation R23.8 and Dysuria R30.0 [facility] [address] 73327 -5851 Jul, Acute seasonal allergic rhinitis, unspecified trigger J30.2 and Chest pain, unspecified type R07.9 [facility] [address] 05167- 6386 Jun, Bipolar disorder, current episode mixed, mild F31.61 [facility] [address] 35623- 0548 Jun, [facility] [address] 50627- 4628 Jun, Bipolar disorder, current episode mixed, mild F31.61 and Personality disorder F60.9 [facility] [address] 00806- 3380 Jun, [facility] [address] 42190- 4909 Jun, Type 2 diabetes mellitus without complication, without long- term current use of insulin E11.9 and Dysuria R30.0 [facility] [address] 72340- 6053 May, Bipolar disorder, current episode mixed, mild F31.61 ; Personality disorder F60.9 and Homeless Z59.0 [facility] [address] 27030- 6907 May, Type 2 diabetes mellitus without complication, without long- term current use of insulin E11.9 [facility] [id number] [place] [address] 66985- 6571 May, History of hypertension Z86.79 [facility] [id number] [place] [address] 59240- 3091 May, [facility] [id number] [place] [address] 62212- 0513 May, Type 2 diabetes mellitus without complication, without long- term current use of insulin E11.9 ; Elevated LDL cholesterol level E78.00 ; Low serum HDL R74.8 and Encounter for immunization Z23 [facility] [address] 62721- 1484 Apr, Encounter to establish care Z76.89 ; Abnormal CBC R79.89 ; History of hypertension Z86.79 ; Overweight (BMI 25.0-29.9) E66.3 ; Family history of diabetes insipidus Z83.49 ; Sore throat J02.9 and Tonsillitis with exudate J03.90 [facility] [id number] [place] [address] 13768- 2622 Apr, Bipolar disorder, current episode mixed, mild F31.61 [facility] [id number] [place] [address] 68489- 1605 Mar, [facility] [id number] [place] [address] 90114- 1259 Mar, Bipolar disorder, current episode mixed, mild F31.61 [facility] [id number] [place] [address] 91542- 0457 Mar, [facility] [id number] [place] [address] 88503- 9362 Mar, Bipolar disorder in remission F31.70 [facility] [id number] [place] [address] 25024- 6111 Jan, [facility] [address] 53559- 5586 Jan, [facility] [id number] 8061 Oct, Generalized anxiety disorder F41.1 and Bipolar disorder in remission F31.70 [facility] [id number] [place] [address]- 1276 Oct, [facility] [address] 6656 Oct, [facility] [address] [facility] [id number] [place] [address]- 8946 Oct, [facility] [address] [place] [address]- 5186 Oct, [facility] [address] [place] [address]- 0167 Jul, [facility] [address] [place] [address]- 4976 Jun, [facility] [id number] [address]- 6564 May, 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 and Generalized anxiety disorder F41.1 [facility] [address] [address]- 6077 Jan, [facility] [address], [place] [address]- 8906 Jan, [facility] [address] [address]- 2543 Jan, 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 and Generalized anxiety disorder F41.1 [facility] [address] [address]- 6076 Sep, [facility] [address]- 8346 Sep, [facility] [address] [place] [address] 30556- 8725 Jul, 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 and Generalized anxiety disorder F41.1 [facility] [id number] [place] [address] 809357- 3272 Jul, Otalgia of right ear H92.01 [facility] [id number] [place] [address] 93126- 6392 Jun, [facility] [id number] [place] [address] 412834- 0484 Mar, [facility] [id number] [place] [address] 29127- 7903 Jan, [facility] [id number] [place] [address] 02332- 5361 Jan, [facility] [id number] [place] [address] 56552- 2264 Jan, Bipolar 1 disorder, mixed, moderate 296.62 and SHERRY ( generalized anxiety disorder) 300.02 [facility] [id number] [place] [address] 82774- 3500 Jan, [facility] [id number] [place] [address] 78090- 7211 Nov, [facility] [address] [place] [address] 01144- 2824 Nov, [facility] [id number] [place] [address] 12756- 2671 Oct, [facility] [address] [place] [address] 55123- 1643 Oct, [facility] [id number] [place] [address] 87514- 5545 Mar, [facility] [address] [place] [address] 06732- 9532 Mar, [facility] [id number] [place] [address] 21187- 5102 Jan, [facility] [place] [facility] [address] [id number] [place] [address]- 7337 Jan, [facility] [place] [facility] [address] [id number] [place] [address]- 5073 December, [facility] [place] [facility] [address] [id number] [place] [address]- 6160 December, [facility] [place] [facility] [address] [id number] [place] [address]- 7142 December, [facility] [place] [facility] [address] [id number] [place] [address]- 7594 December, [facility] [place] [facility] [address] [id number] [place] [address]- 1926 December, [facility] [place] [facility] [address] [id number] [place] [address]- 9059 December, [facility] [place] [facility] [address] [id number] [place] [address]- 8859 December, [facility] [place] [facility] [address] [id number] [place] [address]- 4869 December, [facility] [place] [facility] [address] [id number] [place] [address]- 2554 Nov, [facility] [place] [facility] [address] [id number] [place] [address]- 6643 Nov, [facility] [place] [facility] [address] [id number] [place] [address]- 6494 Oct, [facility] [place] [facility] [address] [id number] [place] [address]- 3928 Oct, [facility] [place] [facility] [address] [id number] [place] [address]- 0456 Oct, [facility] [place] [facility] [address] [id number] [place] [address]- 9123 Oct, [facility] [place] [facility] [address] [id number] [place] [address]- 6179 Oct, [facility] [address] [id number] [place] [address]- 9199 Sep, [facility] [place] [facility] [address] [id number] [place] [address]- 2906 Sep, [facility] [place] [facility] [address] [id number] [place] [address]- 1846 Sep, [facility] [place] [facility] [address] [id number] [place] [address]- 8891 Sep, [facility] [place] [facility] [address] [id number] [place] 1992 Aug, [facility] [place] [facility] [address] [id number] [place] [address]- 0667 Aug, [facility] [place] [facility] [address] [id number] [place] [address]- 3309 Aug, [facility] [address] [id number] [place] [address]- 0341 Aug, [facility] [place] [facility] [address] [id number] [place] [address]- 7299 Aug, [facility] [place] [facility] [address] [id number] [place]- 0155 16 Jul, 2013 [facility] [place] [facility] [address] [id number] [place] [address]- 5892 Jul, [facility] [place] [facility] [address] [id number] [place] [address]- 0604 Jul, [facility] [place] [facility] [address] [id number] [place] [address]- 6008 Jul, [facility] [place] [facility] [address] [id number] [place] [address]- 2546 Jun, [facility] [place] [facility] [address] [id number] [place] [address]- 3644 Jun, [facility] [place] [facility] [address] [id number] [place] [address]- 7358 May, [facility] [place] [facility] [address] [id number] [place] [address]- 3405 May, [facility] [place] [facility] [address] [id number] [place] 7515 May, [facility] [place] [facility] [address] [id number] [place] [address]- 9046 May, [facility] [place] [facility] [address] [id number] [place] [address]- 6029 May, [facility] [place] [facility] [address] [id number] [place] [address]- 1895 May, [facility] [place] [facility] [address] [id number] [place] [address]- 5185 May, [facility] [place] [facility] [address] [id number] [place] [address]- 5382 May, [facility] [place] [facility] [address] [id number] [place] [address]- 8384 May, [facility] [place] [facility] [address] [id number], [place] [address]- 8232 Apr, [facility] [place] [facility] [address] [id number], [place] [address]- 2143 Apr, [facility] [place] [facility] [address] [id number], [place] [address]- 2772 Mar, [facility] [place] [facility] [address] [id number] [place] [address]- 8697 Mar, [facility] [place] [facility] [address] [id number] [place] [address]- 5431 Mar, [facility] [place] [facility] [address] [id number] [place] [address]- 9036 Mar, [facility] [place] [facility] [address] [id number] [place] [address]- 7773 Mar, [facility] [address] [id number] [place] [address]- 3292 Mar, [facility] [place] [facility] [address] [id number] [place] [address]- 3563 Mar, [facility] [place] [facility] [address] [id number] [place] [address]- 8920 Mar, [facility] [place] [facility] [address] [id number] [place] [address]- 9497 Mar, [facility] [place] [facility] [address] [id number] [place] [address]- 7830 Mar, [facility] [place] [facility] [address] [id number] [place] [address]- 0119 Mar, [facility] [address] [id number] [place] [address]- 3723 Jan, [facility] [place] [facility] [address] [id number] [place] [address]- 0010 Jan, [facility] [place] [facility] [address] [id number] [place] [address]- 0335 Jan, [facility] [place] [facility] [address] [id number] [place] [address]- 0862 December, [facility] [place] [facility] [address] [id number] [place] [address]- 2152 December, [facility] [place] [facility] [address] [id number] [place] [address]- 1772 Nov, [facility] [place] [facility] [address] [id number] [place] [address]- 4842 Nov, [facility] [place] [facility] [address] [id number] [place] 5255 Oct, [facility] [place] [facility] [address] [id number] [place] 7514 Oct, [facility] [place] [facility] [address] [id number] [place] [address]- 7020 21 Oct, 2012 [facility] [address] [id number] [place] [address]- 7559 20 Oct, 2012 [facility] [address] [id number] [place] [address]- 6260 19 Oct, 2012 [facility] [address] [id number] [place] [address]- 2506 19 Oct, 2012 [facility] [address] [id number] [place] [address]- 0874 17 Oct, 2012 [facility] [address] [id number] [place] [address]- 5360 16 Oct, 2012 [facility] [address] [id number] [place] [address]- 1679 14 Oct, 2012 [facility] [address] [id number] [place] [address]- 3040 13 Oct, 2012 [facility] [address] [id number] [place] [address]- 6105 05 Oct, 2012 [facility] [address] [id number] [place] [address]- 1626 14 Sep, 2012 [facility] [address] [id number] [place] [address]- 4797 08 Sep, 2012 [facility] [address] [id number] [place] [address]- 4405 Aug, [facility] [address] [id number] [place] [address]- 4103 16 Aug, 2012 [facility] [place] [facility] [address] [id number] [place] [address]- 0259 Aug, [facility] [place] [facility] [address] [id number] [place] [address]- 2185 09 Aug, 2012 [facility] [address] [id number] [place] [address]- 1370 07 Aug, 2012 [facility] [place] [facility] [address] [id number] [place] [address]- 4796 Jul, [facility] [place] [facility] [address] [id number] [place] [address]- 1266 Jul, [facility] [place] [facility] [address] [id number] [place] [address]- 6476 Jul, [facility] [place] [facility] [address] [id number] [place] [address]- 4666 19 Jul, 2012 [facility] [place] [facility] [address] [id number] [place] [address]- 3208 18 Jul, 2012 [facility] [place] [facility] [address] [id number] [place] [address]- 0891 17 Jul, 2012 [facility] [place] [facility] [address] [id number] [place] [address]- 2826 14 Jul, 2012 [facility] [place] [facility] [address] [id number] [place] [address]- 3579 14 Jul, 2012 [facility] [place] [facility] [address] [id number] [place] [address]- 5806 06 Jul, 2012 [facility] [place] [facility] [address] [id number] [place] [address]- 9372 06 Jul, 2012 [facility] [place] [facility] [address] [id number] [place] [address] 05 Jul, 2012 [facility] [place] [facility] [address] [id number] [place] [address] 05 Jul, 2012 [facility] [place] [facility] [address] [id number] [place] [address] 04 Jul, 2012 [facility] [place] [facility] [address] [id number] [place] [address] 04 Jul, 2012 [facility] [place] [facility] [address] [id number] [place] [address]- [address] 04 Jul, 2012 [facility] [place] [facility] [address] [id number] [place] [address] Jul, [facility] [place] [facility] [address] [id number] [place] [address] Jun, [facility] [place] [facility] [address] [id number] [place] [address] Jun, [facility] [place] [facility] [address] [id number] [place] [address] Jun, [facility] [place] [facility] [address] [id number] [place] [address] Jun, [facility] [place] [facility] [address] [id number] [place] [address] Jun, [facility] [place] [facility] [address] [id number] [place] [address] Jun, [facility] [place] [facility] [address] [id number] [place] [address] Jun, [facility] [place] [facility] [address] [id number] [place] [address]- [address] Jun, [facility] [place] [facility] [address] [id number] [place] [address] Jun, [facility] [place] [facility] [address] [id number] [place] [address] May, [facility] [place] [facility] [address] [id number] [place] [address] Mar, [facility] [place] [facility] [address] [id number] [place] [address] Mar, [facility] [place] [facility] [address] [id number] [place] [address] Mar, [facility] [place] [facility] [address] [id number] [place] [address] Mar, [facility] [place] [facility] [address] [id number] [place] [address] Jan, [facility] [place] [facility] [address] [id number] [place] [address] Jan, [facility] [place] [facility] [address] [id number] [place] [address]- [address] Jan, [facility] [place] [facility] [address] [id number] [place] [address]276 Jan, [facility] [place] [facility] [address] [id number] [place] [address] Jan, [facility] [place] [facility] [address] [id number] [place] [address] Jan, [facility] [place] [facility] [address] [id number] [place] [address] December, [facility] [place] [facility] [address] [id number] [place] [address] December, [facility] [place] [facility] [address] [id number] [place] [address] Nov, [facility] [place] [facility] [address] [id number] [place] [address] Nov, [facility] [place] [facility] [address] [id number] [place] [address] Oct, [facility] [place] [facility] [address] [id number] [place] [address] Oct, [facility] [place] [facility] [address] [id number], [place] [address] Oct, [facility] [place] [facility] [address] [id number] [place] [address] Oct, [facility] [place] [facility] [address] [id number] [place] [address] Aug, [facility] [place] [facility] [address] [id number] [place] [address] Aug, [facility] [place] [facility] [address] [id number], [place] [address] Jun, [facility] [place] [facility] [address] [id number] [place] [address] Jun, [facility] [place] [facility] [address] [id number] [place] [address] Jun, [facility] [place] [facility] [address] [id number] [place] [address] Jun, [facility] [place] [facility] [address] [id number] [place] [address] Jun, [facility] [place] [facility] [address] [id number] [place] [address], [place] [address] May, [facility] [place] [facility] [address] [id number] [place] [address] May, [facility] [place] [facility] [address] [id number], [place] [address] May, [facility] [place] [facility] [address] [id number] [place] [address] May, [facility] [place] [facility] [address] [id number] [place] [address] May, [facility] [place] [facility] [address] [facility] [id number] [place] [address] May, [facility] [place] [facility] [address] [id number], [place] [address] May, [facility] [place] [facility] [address] [id number], [place] [address] Mar, [facility] [place] [facility] [address] [id number] [place] [address] May, [facility] [place] [facility] [address] [id number] [place] [address] Jan, [facility] [place] [facility] [address] [facility] [id number] [place] [address] Jul, [facility] [place] [facility] [address] [id number], [place] [address] Jun, 2009 [facility] [id number] [address] Jun, [facility] [id number] Jun, [facility] [id number], [place] [address] Jun, [facility] [id number], [place] [address] Jun, [facility] [id number] [address] May, [facility] [id number], [place] [address] May, [facility] [id number] [address] May, [facility] [address] [id number], [place] [address] Jul, IMMUNIZATIONS No Known Immunizations SOCIAL HISTORY Never Assessed REASON FOR VISIT bilat mammogram PLAN OF CARE VITAL SIGNS MEDICATIONS Unknown Medications RESULTS Name Result Date Reference Range Mammogram Dx, Bilateral 2017-10-26 PROCEDURES No Known procedures INSTRUCTIONS MEDICATIONS ADMINISTERED No Known Medications MEDICAL (GENERAL) HISTORY Type Description Date Medical History hypertension Medical History depression (hx of suicidal plan in 2012) Medical History insomnia Medical History bipolar disorder Surgical History Appendix Surgical History Tubal Ligation Hospitalization History Child /surgery Hospitalization History psych inpatient treatment, [facility] 2011
--- OUTSIDE RECORDS SUMMARY | 2018-04-18 15:38 | XMS REPORT ---
Author Author WILKINSSREEKANTH Morales Organization [facility] Address [address] [place] [address] Care Team Providers Care Physical Ther Name Role Phone SREEKANTH WILKINS Unavailable PROBLEMS Type Condition ICD9-CM Code SPR98-KB Code Onset Dates Condition Status SNOMED Code Problem History of hypertension Z86.79 Active 823703474 Problem Elevated LDL cholesterol level E78.00 Active 704434144 Problem Personality disorder F60.9 Active 20438450 Problem Other chronic pain G89.29 Active 22740732 Problem Hypoglycemia E16.2 Active 402569367 Problem Acute seasonal allergic rhinitis, unspecified trigger J30.2 Active 101154365 Problem Type 2 diabetes mellitus without complication, without long-term current use of insulin E11.9 Active 692903637 Problem Primary insomnia F51.01 Active 4356944 Problem Acute non intractable tension-type headache G44.209 Active 655905353 Problem Generalized anxiety disorder F41.1 Active 40237337 Problem Bipolar disorder in remission F31.70 Active 01430766 Problem Family history of diabetes insipidus Z83.49 Active 232226478 Problem Abnormal CBC R79.89 Active 522068513 Problem Bipolar disorder, current episode mixed, mild F31.61 Active 767401095 Problem History of diabetes mellitus Z86.39 Active 630479468 Problem Overweight (BMI 25.0-29.9) E66.3 Active 973602102 Problem Sore throat J02.9 Active 279769403 ALLERGIES Substance Reaction Event Type Date Status MetFORMIN HCl ER nausea Drug Allergy Oct, Active Zyprexa rash Drug Allergy Oct, Active Cipro rash Drug Allergy Oct, Active ENCOUNTERS Encounter Location Date Diagnosis [facility] [address] [facility] [id number] [address] Jan, Epigastric pain R10.13 and UTI symptoms R39.9 [facility] [id number] [place] [address] 36382- 3896 Jan, Posterior right knee pain M25.561 [place] [id number] [place] [address] 27574- 8150 Jan, Posterior right knee pain M25.561 [place] [id number] [place] [address] 91650- 6434 Jan, Scabies B86 [place] [id number] [place] [address] 65067- 5144 Jan, Bipolar disorder, current episode mixed, mild F31.61 and Personality disorder F60.9 [place] [address] 66642- 2454 Jan, Cyst of ovary, unspecified laterality N83.209 [place] [id number] [place] [address] 19226- 7954 December, Cyst of ovary, unspecified laterality N83.209 [place] [id number] [place] [address] 55687- 9173 December, [place] [id number] [place] [address] 00791- 4221 December, Dysuria R30.0 [place] [id number] [place] [address] 47250- 7475 December, [place] [id number] [place] [address] 62503- 1511 Nov, Bipolar disorder, current episode mixed, mild F31.61 and Personality disorder F60.9 [place] [id number] [place] [address] 57976- 4846 Nov, Elevated LDL cholesterol level E78.00 and Type 2 diabetes mellitus without complication, without long-term current use of insulin E11.9 [place] [id number] [place] [address] 03067- 5501 Nov, Elevated LDL cholesterol level E78.00 and Type 2 diabetes mellitus without complication, without long-term current use of insulin E11.9 [place] [id number] [place] [address] 17271- 3628 04 Nov, 2017 Other chronic pain G89.29 and Pain in left leg M79.605 [place] [id number] [place] [address] 69843- 6169 02 Nov, 2017 Acute pain of left knee M25.562 ; Syncope, unspecified syncope type R55 and Hypoglycemia E16.2 [place] [address] [id number] [place] [address] 91308- 8308 Oct, Syncope, unspecified syncope type R55 [place] [address] 60522- 3306 Oct, Bipolar disorder, current episode mixed, mild F31.61 and Personality disorder F60.9 [place] [address] 20566- 3260 Oct, Lump of right breast N63.10 [place] [id number] [place] [address] 53536- 7953 Oct, Generalized anxiety disorder F41.1 [place] [id number] [place] [address] 98388- 6569 Oct, Generalized anxiety disorder F41.1 ; Bipolar disorder in remission F31.70 ; Bipolar disorder, current episode mixed, mild F31.61 and Primary insomnia F51.01 [place] [id number] [place] [address] 40732- 1550 Oct, Primary insomnia F51.01 and Lump of right breast N63.10 [place] [id number] [place] [address] 01501- 8188 16 Oct, 2017 Enteritis K52.9 [facility] [id number] [place] [address] 47868 -1666 14 Oct, 2017 Allergic conjunctivitis of both eyes H10.13 and Acute non intractable tension-type headache G44.209 [place] [id number] [place] [address] 40206- 5922 Oct, [place] [id number] [place] [address] 65272- 3286 Oct, Bipolar disorder, current episode mixed, mild F31.61 [place] [id number] [place] [address] 14651- 7336 Sep, Right flank pain R10.9 and Thoracic spine pain M54.6 [place] [id number] [place] [address] 57641- 2095 16 Sep, 2017 Generalized anxiety disorder F41.1 and Bipolar disorder, current episode mixed, mild F31.61 [place] [id number] [place] [address] 01173- 3196 Sep, [place] [id number] [place] [address] 53163- 5783 Sep, Generalized anxiety disorder F41.1 ; Bipolar disorder in remission F31.70 and Personality disorder F60.9 [place] [id number] [place] [address] 62233- 2753 Sep, Spasm of thoracic back muscle M62.830 ; Type 2 diabetes mellitus without complication, without long-term current use of insulin E11.9 and Generalized anxiety disorder F41.1 [place] [id number] [place] [address] 84812- 9821 Sep, Bipolar disorder, current episode mixed, mild F31.61 and Personality disorder F60.9 [place] [id number] [place] [address] 31859- 3457 Aug, [place] [id number] [place] [address] 14111- 1935 Aug, Bipolar disorder, current episode mixed, mild F31.61 and Personality disorder F60.9 [place] [id number] [place] [address] 51984- 9282 Aug, Type 2 diabetes mellitus without complication, without long- term current use of insulin E11.9 ; Generalized anxiety disorder F41.1 ; Bipolar disorder in remission F31.70 and Overweight (BMI 25.0-29.9) E66.3 [place] [address] 47708- 0087 Aug, Type 2 diabetes mellitus without complication, without long- term current use of insulin E11.9 ; Elevated LDL cholesterol level E78.00 and Bipolar disorder, current episode mixed, mild F31.61 [facility] [address] 78889 -0945 Jul, Vaginal discharge N89.8 ; Skin irritation R23.8 and Dysuria R30.0 [facility] [address] 08689 -2753 Jul, Acute seasonal allergic rhinitis, unspecified trigger J30.2 and Chest pain, unspecified type R07.9 [place] [address] 31850- 4026 Jun, Bipolar disorder, current episode mixed, mild F31.61 [place] [address] 94512- 9609 Jun, [place] [address] 38164- 9307 Jun, Bipolar disorder, current episode mixed, mild F31.61 and Personality disorder F60.9 [place] [address] 17514- 8772 Jun, [place] [address] 37560- 8878 Jun, Type 2 diabetes mellitus without complication, without long- term current use of insulin E11.9 and Dysuria R30.0 [place] [address] 77365- 0712 May, Bipolar disorder, current episode mixed, mild F31.61 ; Personality disorder F60.9 and Homeless Z59.0 [place] [address] [place] [address] 76626- 3504 May, Type 2 diabetes mellitus without complication, without long- term current use of insulin E11.9 [place] [address] [id number] [place] [address] 24820- 1489 May, History of hypertension Z86.79 [place] [address] 63717- 8642 May, [place] [id number] [place] [address] 81307- 2660 May, Type 2 diabetes mellitus without complication, without long- term current use of insulin E11.9 ; Elevated LDL cholesterol level E78.00 ; Low serum HDL R74.8 and Encounter for immunization Z23 [place] [id number] [place] [address] 22875- 1270 Apr, Encounter to establish care Z76.89 ; Abnormal CBC R79.89 ; History of hypertension Z86.79 ; Overweight (BMI 25.0-29.9) E66.3 ; Family history of diabetes insipidus Z83.49 ; Sore throat J02.9 and Tonsillitis with exudate J03.90 [place] [id number] [place] [address] 82049- 1133 Apr, Bipolar disorder, current episode mixed, mild F31.61 [place] [id number] [place] [address] 38967- 4764 Mar, [place] [id number] [place] [address] 44523- 6076 Mar, Bipolar disorder, current episode mixed, mild F31.61 [place] [address] 72286- 3690 Mar, [place] [id number] [place] [address] 58574- 3816 Mar, Bipolar disorder in remission F31.70 [place] [address] [place] [address]- 7811 Jan, [facility] [id number] [address]- 4266 Jan, [facility] [id number] [address]- 0406 Oct, Generalized anxiety disorder F41.1 and Bipolar disorder in remission F31.70 [facility] [address] [address] 2546 Oct, [facility] [address] [facility] [id number] [place] [address]- 6016 Oct, [facility] [id number] [address]- 0236 Oct, [facility] [address] [address]- 8776 Oct, [facility] [address] 2121 Jul, [facility] [id number] [address]- 6126 Jun, [facility] [address] 1506 May, 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 and Generalized anxiety disorder F41.1 [facility] [address] [address]- 5146 Jan, [facility] [id number] [address] 2546 Jan, [facility] [id number] [address]- 6386 Jan, 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 and Generalized anxiety disorder F41.1 [facility] [address] [address]- 0916 Sep, [facility] [address] [id number] [address]- 1460 Sep, [facility] [id number] [place] [address] 377483- 0918 Jul, 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 and Generalized anxiety disorder F41.1 [facility] [id number] [place] [address] 65189- 1621 Jul, Otalgia of right ear H92.01 [facility] [id number] [place] [address] 75828- 7089 Jun, [facility] [id number] [place] [address] 95158- 0856 Mar, [facility] [id number] [place] [address] 94536- 7738 Jan, [facility] [id number] [place] [address] 88441- 4587 Jan, [facility] [id number] [place] [address] 62118- 5479 Jan, Bipolar 1 disorder, mixed, moderate 296.62 and SHERRY ( generalized anxiety disorder) 300.02 [facility] [id number] [place] [address] 07235- 6172 Jan, [facility] [address] [address]- 4212 Nov, [facility] [id number] [place] [address] 32048- 0371 Nov, [facility] [id number] [place] [address] 34794- 0726 Oct, [facility] [id number] [place] [address] 34587- 5682 Oct, [facility] [address] [address]- 0682 Mar, [facility] [id number] [place] [address] 58033- 1781 Mar, [facility] [place] [facility] [address] [id number] [place] [address]- 8849 Jan, [facility] [place] [facility] [address] [id number] [place] [address]- 7114 Jan, [facility] [place] [facility] [address] [id number] [place] [address]- 4897 December, [facility] [place] [facility] [address] [id number] [place] [address]- 6382 December, [facility] [place] [facility] [address] [id number] [place] [address]- 5549 December, [facility] [place] [facility] [address] [id number] [place] [address]- 2110 December, [facility] [place] [facility] [address] [id number] [place] [address]- 1240 December, [facility] [place] [facility] [address] [id number] [place] [address]- 1368 December, [facility] [place] [facility] [address] [id number] [place] [address]- 0854 December, [facility] [place] [facility] [address] [id number] [place] [address]- 6907 December, [facility] [place] [facility] [address] [id number] [place] [address]- 9649 Nov, [facility] [place] [facility] [address] [id number] [place] [address]- 1567 Nov, [facility] [place] [facility] [address] [id number] [place] [address]- 3611 Oct, [facility] [place] [facility] [address] [id number] [place] [address]- 4069 Oct, [facility] [place] [facility] [address] [id number] [place] [address]- 3960 Oct, [facility] [place] [facility] [address] [id number] [place] [address]- 6837 10 Oct, 2013 [facility] [place] [facility] [address] [id number] [place] [address]- 6060 Oct, [facility] [place] [facility] [address] [id number] [place] [address]- 4443 Sep, [facility] [place] [facility] [address] [id number] [place] [address]- 6138 Sep, [facility] [place] [facility] [address] [id number] [place] [address]- 4424 Sep, [facility] [place] [facility] [address] [id number] [place] [address]- 9582 Sep, [facility] [place] [facility] [address] [id number] [place] [address]- 4948 Aug, [facility] [place] [facility] [address] [id number] [place] [address]- 7180 Aug, [facility] [place] [facility] [address] [id number] [place] [address]- 4497 Aug, [facility] [place] [facility] [address] [id number] [place] [address]- 5091 Aug, [facility] [place] [facility] [address] [id number] [place] [address]- 3167 Aug, [facility] [place] [facility] [address] [id number] [place] [address]- 0784 16 Jul, 2013 [facility] [place] [facility] [address] [id number] [place] [address]- 3400 16 Jul, 2013 [facility] [place] [facility] [address] [id number] [place] [address]- 5253 11 Jul, 2013 [facility] [place] [facility] [address] [id number] [place] [address]- 5993 11 Jul, 2013 [facility] [place] [facility] [address] [id number] [place] [address]- 7506 Jun, [facility] [place] [facility] [address] [id number] [place] [address]- 5828 Jun, [facility] [place] [facility] [address] [id number] [place] [address]- 9116 May, [facility] [place] [facility] [address] [id number] [place] [address]- 7240 May, [facility] [place] [facility] [address] [id number] [place] [address]- 7789 May, [facility] [place] [facility] [address] [id number] [place] [address]- 4643 May, [facility] [place] [facility] [address] [id number] [place] [address]- 9685 May, [facility] [place] [facility] [address] [id number] [place] [address]- 9263 May, [facility] [place] [facility] [address] [id number] [place] [address]- 4577 May, [facility] [place] [facility] [address] [id number] [place] [address]- 4691 May, [facility] [place] [facility] [address] [id number] [place] [address]- 0115 May, [facility] [place] [facility] [address] [id number] [address]- 3307 Apr, [facility] [place] [facility] [address] [id number] [place] [address] 2544 Apr, [facility] [place] [facility] [address] [id number] [place] [address]- 9906 Mar, [facility] [place] [facility] [address] [id number] [place] [address]- 9954 Mar, [facility] [place] [facility] [address] [id number] [place] [address] 2544 Mar, [facility] [place] [facility] [address] [id number] [place] [address]- 8013 Mar, [facility] [address] [id number] [place] [address]- 8030 Mar, [facility] [address] [id number] [place] [address]- 0112 Mar, [facility] [address] [id number] [place] [address]- 9876 Mar, [facility] [address] [id number] [place] [address]- 2527 Mar, [facility] [address] [id number] [place] [address]- 2178 Mar, [facility] [address] [id number] [place] [address]- 8993 Mar, [facility] [address] [id number] [place] [address]- 6296 Mar, [facility] [address] [id number] [place] [address]- 4599 Jan, [facility] [address] [id number] [place] [address]- 4767 Jan, [facility] [address] [id number] [place] [address]- 8563 Jan, [facility] [address] [id number] [place] [address]- 2536 December, [facility] [address] [id number] [place] [address]- 6608 December, [facility] [place] [facility] [address] [id number] [place] [address]- 6116 Nov, [facility] [place] [facility] [address] [id number] [place] [address]- 0955 Nov, [facility] [place] [facility] [address] [id number] [place] [address]- 9693 Oct, [facility] [address] [id number] [place] [address]- 7889 26 Oct, 2012 [facility] [address] [id number] [place] [address]- 7566 21 Oct, 2012 [facility] [address] [id number] [place] [address]- 4053 20 Oct, 2012 [facility] [place] [facility] [address] [id number] [place] [address]- 2086 19 Oct, 2012 [facility] [address] [id number] [place] [address]- 3492 19 Oct, 2012 [facility] [address] [id number] [place] [address]- 7326 17 Oct, 2012 [facility] [address] [id number] [place] [address]- 2061 16 Oct, 2012 [facility] [address] [id number] [place] [address]- 3910 14 Oct, 2012 [facility] [address] [id number] [place] [address]- 7116 13 Oct, 2012 [facility] [address] [id number] [place] [address]- 4116 05 Oct, 2012 [facility] [address] [id number] [place] [address]- 1892 14 Sep, 2012 [facility] [place] [facility] [address] [id number] [place] [address]- 4095 08 Sep, 2012 [facility] [place] [facility] [address] [id number] [place] [address]- 2234 21 Aug, 2012 [facility] [place] [facility] [address] [id number] [place] [address]- 1926 16 Aug, 2012 [facility] [place] [facility] [address] [id number] [place] [address]- 3871 12 Aug, 2012 [facility] [place] [facility] [address] [id number] [place] [address]- 4841 09 Aug, 2012 [facility] [address] [id number] [place] [address]- 0175 Aug, [facility] [address] [id number] [place] [address]- 6616 Jul, [facility] [address] [id number] [place] [address]- 9106 Jul, [facility] [address] [id number] [place] [address] Jul, [facility] [address] [id number] [place] [address] Jul, [facility] [address] [id number] [place] [address] 18 Jul, 2012 [facility] [address] [id number] [place] [address] 17 Jul, 2012 [facility] [address] [id number] [place] [address] 14 Jul, 2012 [facility] [address] [id number] [place] [address] 14 Jul, 2012 [facility] [address] [id number] [place] [address] 06 Jul, 2012 [facility] [address] [id number] [place] [address] 06 Jul, 2012 [facility] [place] [facility] [address] [id number] [place] [address] 05 Jul, 2012 [facility] [place] [facility] [address] [id number] [place] [address] 05 Jul, 2012 [facility] [place] [facility] [address] [id number] [place] [address] 04 Jul, 2012 [facility] [address] [id number] [place] [address] 04 Jul, 2012 [facility] [place] [facility] [address] [id number] [place] [address] Jul, [facility] [place] [facility] [address] [id number] [place] [address] Jul, [facility] [place] [facility] [address] [id number] [place] [address] Jun, [facility] [place] [facility] [address] [id number] [place] [address] Jun, [facility] [place] [facility] [address] [id number] [place] [address] Jun, [facility] [place] [facility] [address] [id number] [place] [address] Jun, [facility] [place] [facility] [address] [id number] [place] [address] Jun, [facility] [place] [facility] [address] [id number] [place] [address] Jun, [facility] [place] [facility] [address] [id number] [place] [address] Jun, [facility] [place] [facility] [address] [id number] [place] [address] Jun, [facility] [place] [facility] [address] [id number] [place] [address] Jun, [facility] [place] [facility] [address] [id number] [place] [address] May, [facility] [place] [facility] [address] [id number] [place] [address] Mar, [facility] [place] [facility] [address] [id number] [place] [address] Mar, [facility] [place] [facility] [address] [id number] [place] [address] Mar, [facility] [place] [facility] [address] [id number] [place] [address] Mar, [facility] [place] [facility] [address] [id number] [place] [address] Jan, [facility] [place] [facility] [address] [id number] [place] [address] Jan, [facility] [place] [facility] [address] [id number] [place] [address] Jan, [facility] [place] [facility] [address] [id number] [place] [address] Jan, [facility] [place] [facility] [address] [id number] [place] [address] Jan, [facility] [place] [facility] [address] [id number] [place] [address] 25[address] Jan, [facility] [place] [facility] [address] [id number] [place] [address] December, [facility] [place] [facility] [address] [address] [id number] [place] [address] December, [facility] [place] [facility] [address] [id number] [place] [address] Nov, [facility] [place] [facility] [address] [id number] [place] [address] Nov, [facility] [place] [facility] [address] [id number] [place] [address] Oct, [facility] [place] [facility] [address] [id number] [place] [address] Oct, [facility] [place] [facility] [address] [id number] [place] [address] Oct, [facility] [place] [facility] [address] [id number] [place] [address] Oct, [facility] [place] [facility] [address] [id number] [place] [address] Aug, [facility] [place] [facility] [address] [id number] [place] [address] Aug, [facility] [place] [facility] [address] [id number] [place] [address] Jun, [facility] [place] [facility] [address] [id number] [place] [address] Jun, [facility] [place] [facility] [address] [id number] [place] [address] Jun, [facility] [place] [facility] [address] [id number] [place] [address] Jun, [facility] [place] [facility] [address] [id number] [place] [address] Jun, [facility] [place] [facility] [address] [id number] [place] [address] May, [facility] [place] [facility] [address] [id number] [place] [address] May, [facility] [place] [facility] [address] [id number] [place] [address] May, [facility] [place] [facility] [address] [id number] [place] [address] May, [facility] [place] [facility] [address] [id number] [place] [address] May, [facility] [place] [facility] [address] [id number] [place] [address] May, [facility] [place] [facility] [address] [id number] [place] [address] May, [facility] [place] [facility] [address] [id number] [place] [address] Mar, [facility] [place] [facility] [address] [id number] [place] [address] May, [facility] [place] [facility] [address] [id number] [place] [address] Jan, [facility] [id number] [address] Jul, [facility] [id number] [address] Jun, [facility] [id number] [address] Jun, [facility] [id number] [place] [address] Jun, [facility] [id number] [address] Jun, [facility] [id number] [place] [address] Jun, [facility] [id number] [place] [address]- [address] May, [facility] [id number] [place] [address] May, [facility] [id number] [address] May, [facility] [id number] [address] Jul, IMMUNIZATIONS No Known Immunizations SOCIAL HISTORY Never Assessed REASON FOR VISIT Stomach ache--tjanssenMA, -her mother on thursday and hasnt been to work since Thursday in which she is not felling good. , -c/o not being able to sleep at night would like something to help her. Trazadone and Melatonin are not helping , -lump on right breast not painful noticed last month. Wants exam PLAN OF CARE Activity Details Follow Up prn Reason: VITAL SIGNS Height 62 in 2017-10-20 Weight 164.7 lbs 2017-10-20 Temperature 97.5 degrees Fahrenheit 2017-10-20 Heart Rate 78 bpm 2017-10-20 Respiratory Rate 20 2017-10-20 BMI 30.12 kg/m2 2017-10-20 Blood pressure systolic 106 mmHg 2017-10-20 Blood pressure diastolic 74 mmHg 2017-10-20 MEDICATIONS Medication Instructions Dosage Frequency Start Date End Date Duration Status Ambien 5 mg Orally Once a day 1 tablet at bedtime 24h Oct, 30 days Active Naproxen 500 mg Orally every 12 hrs 1 tablet with food or milk as needed 12h Oct, Not-Taking Flonase 50 MCG/ACT Nasally Once a day 1 spray in each nostril 24h Jul, 30 day(s) Not-Taking Azelastine HCl 0.05 % Ophthalmic Twice a day 1 drop into affected eye 12h Oct, Active Lisinopril 2.5 MG Orally Once a day 2 tablets 24h 90 days Active Melatonin 5 mg Orally take at bedtime 1 tablet Apr, 30 days Active Aspir-81 81 MG Orally Once a day 1 tablet 24h 26 Apr, 2017 Jan, 90 days Active BusPIRone HCl 15 MG Orally 3 times a day 1 tablet 8h 05 Aug, 2017 30 days Active Abilify 5 MG Orally Once a day at bedtime 1 tablet 30 days Active Glimepiride 1 MG Orally Once a day 1 tablet with breakfast or the first main meal of the day 24h May, 90 days Active Atorvastatin Calcium 10 mg Orally Once a day 1 tablet 24h May, 90 days Active Glucocard Expression Test 1 [...]
--- OUTSIDE RECORDS SUMMARY | 2018-04-18 15:38 | XMS REPORT ---
Author Author WILKINSSREEKANTH Morales Organization [facility] [place] [facility] Address [address] [place] [address] Care Team Providers Care Slat Twister Name Role Phone SREEKANTH WILKINS Unavailable PROBLEMS Type Condition ICD9-CM Code [id number] Code Onset Dates Condition Status SNOMED Code Problem History of hypertension Z86.79 Active 698013907 Problem Elevated LDL cholesterol level E78.00 Active 107097226 Problem Personality disorder F60.9 Active 86040244 Problem Other chronic pain G89.29 Active 13260128 Problem Hypoglycemia E16.2 Active 350470422 Problem Acute seasonal allergic rhinitis, unspecified trigger J30.2 Active 382032139 Problem Type 2 diabetes mellitus without complication, without long-term current use of insulin E11.9 Active 653607466 Problem Primary insomnia F51.01 Active 2049082 Problem Acute non intractable tension-type headache G44.209 Active 884138540 Problem Generalized anxiety disorder F41.1 Active 62429437 Problem Bipolar disorder in remission F31.70 Active 23581258 Problem Family history of diabetes insipidus Z83.49 Active 472570388 Problem Abnormal CBC R79.89 Active 940980713 Problem Bipolar disorder, current episode mixed, mild F31.61 Active 006417233 Problem History of diabetes mellitus Z86.39 Active 875602250 Problem Overweight (BMI 25.0-29.9) E66.3 Active 451257527 Problem Sore throat J02.9 Active 027074492 ALLERGIES Substance Reaction Event Type Date Status MetFORMIN HCl ER nausea Drug Allergy Oct, Active Zyprexa rash Drug Allergy Oct, Active Cipro rash Drug Allergy Oct, Active ENCOUNTERS Encounter Location Date Diagnosis [facility] [place] [facility] [address] [facility] [id number] [address] Jan, Epigastric pain R10.13 and UTI symptoms R39.9 [facility] [place] [facility] [id number] [place] [address] 20566- 2961 Jan, Posterior right knee pain M25.561 [place] [id number] [place] [address] 38064- 4703 Jan, Posterior right knee pain M25.561 [place] [id number] [place] [address] 85133- 9427 Jan, Scabies B86 [place] [id number] [place] [address] 90171- 5243 Jan, Bipolar disorder, current episode mixed, mild F31.61 and Personality disorder F60.9 [place] [address] 20390- 8808 Jan, Cyst of ovary, unspecified laterality N83.209 [place] [id number] [place] [address] 37314- 5731 December, Cyst of ovary, unspecified laterality N83.209 [place] [id number] [place] [address] 26409- 5957 December, [place] [id number] [place] [address] 61686- 3902 December, Dysuria R30.0 [place] [id number] [place] [address] 97080- 1958 December, [place] [id number] [place] [address] 55209- 3277 Nov, Bipolar disorder, current episode mixed, mild F31.61 and Personality disorder F60.9 [place] [id number] [place] [address] 63864- 3919 Nov, Elevated LDL cholesterol level E78.00 and Type 2 diabetes mellitus without complication, without long-term current use of insulin E11.9 [place] [id number] [place] [address] 90136- 5172 Nov, Elevated LDL cholesterol level E78.00 and Type 2 diabetes mellitus without complication, without long-term current use of insulin E11.9 [place] [id number] [place] [address] 77848- 7052 04 Nov, 2017 Other chronic pain G89.29 and Pain in left leg M79.605 [place] [id number] [place] [address] 75790- 4420 02 Nov, 2017 Acute pain of left knee M25.562 ; Syncope, unspecified syncope type R55 and Hypoglycemia E16.2 [place] [id number] [place] [address] 51101- 2483 Oct, Syncope, unspecified syncope type R55 [place] [address] 84002- 9932 Oct, Bipolar disorder, current episode mixed, mild F31.61 and Personality disorder F60.9 [place] [address] 70102- 0321 Oct, Lump of right breast N63.10 [place] [id number] [place] [address] 30110- 6617 Oct, Generalized anxiety disorder F41.1 [place] [id number] [place] [address] 78151- 8348 Oct, Generalized anxiety disorder F41.1 ; Bipolar disorder in remission F31.70 ; Bipolar disorder, current episode mixed, mild F31.61 and Primary insomnia F51.01 [place] [id number] [place] [address] 89927- 4109 Oct, Primary insomnia F51.01 and Lump of right breast N63.10 [place] [id number] [place] [address] 41242- 9759 16 Oct, 2017 Enteritis K52.9 [facility] [id number] [place] [address] 43839 -5519 14 Oct, 2017 Allergic conjunctivitis of both eyes H10.13 and Acute non intractable tension-type headache G44.209 [place] [id number] [place] [address] 15079- 2850 Oct, [place] [id number] [place] [address] 35623- 1615 Oct, Bipolar disorder, current episode mixed, mild F31.61 [place] [id number] [place] [address] 47767- 6274 Sep, Right flank pain R10.9 and Thoracic spine pain M54.6 [place] [id number] [place] [address] 40480- 9758 16 Sep, 2017 Generalized anxiety disorder F41.1 and Bipolar disorder, current episode mixed, mild F31.61 [place] [address] [place] [address] 81197- 9379 Sep, [place] [id number] [place] [address] 41302- 9862 Sep, Generalized anxiety disorder F41.1 ; Bipolar disorder in remission F31.70 and Personality disorder F60.9 [place] [id number] [place] [address] 71691- 5974 Sep, Spasm of thoracic back muscle M62.830 ; Type 2 diabetes mellitus without complication, without long-term current use of insulin E11.9 and Generalized anxiety disorder F41.1 [place] [id number] [place] [address] 87755- 8226 Sep, Bipolar disorder, current episode mixed, mild F31.61 and Personality disorder F60.9 [place] [id number] [place] [address] 58847- 9198 Aug, [place] [id number] [place] [address] 79155- 7362 Aug, Bipolar disorder, current episode mixed, mild F31.61 and Personality disorder F60.9 [place] [id number] [place] [address] 85314- 5969 Aug, Type 2 diabetes mellitus without complication, without long- term current use of insulin E11.9 ; Generalized anxiety disorder F41.1 ; Bipolar disorder in remission F31.70 and Overweight (BMI 25.0-29.9) E66.3 [place] [address] 15636- 0451 Aug, Type 2 diabetes mellitus without complication, without long- term current use of insulin E11.9 ; Elevated LDL cholesterol level E78.00 and Bipolar disorder, current episode mixed, mild F31.61 [facility] [address] 07361 -1243 Jul, Vaginal discharge N89.8 ; Skin irritation R23.8 and Dysuria R30.0 [facility] [address] 45998 -3532 Jul, Acute seasonal allergic rhinitis, unspecified trigger J30.2 and Chest pain, unspecified type R07.9 [place] [address] 55695- 7053 Jun, Bipolar disorder, current episode mixed, mild F31.61 [place] [address] 06680- 4921 Jun, [place] [address] 22095- 8544 Jun, Bipolar disorder, current episode mixed, mild F31.61 and Personality disorder F60.9 [place] [address] 17651- 5772 Jun, [place] [address] 09156- 2022 Jun, Type 2 diabetes mellitus without complication, without long- term current use of insulin E11.9 and Dysuria R30.0 [place] [address] 05799- 7756 May, Bipolar disorder, current episode mixed, mild F31.61 ; Personality disorder F60.9 and Homeless Z59.0 [place] [address] [place] [address] 38980- 4177 May, Type 2 diabetes mellitus without complication, without long- term current use of insulin E11.9 [place] [id number] [place] [address] 03010- 6626 May, History of hypertension Z86.79 [place] [address] 43843- 8822 May, [place] [address] [place] [address] 81325- 2278 May, Type 2 diabetes mellitus without complication, without long- term current use of insulin E11.9 ; Elevated LDL cholesterol level E78.00 ; Low serum HDL R74.8 and Encounter for immunization Z23 [place] [id number] [place] [address] 24606- 3142 Apr, Encounter to establish care Z76.89 ; Abnormal CBC R79.89 ; History of hypertension Z86.79 ; Overweight (BMI 25.0-29.9) E66.3 ; Family history of diabetes insipidus Z83.49 ; Sore throat J02.9 and Tonsillitis with exudate J03.90 [place] [address] [place] [address] 49060- 5145 Apr, Bipolar disorder, current episode mixed, mild F31.61 [place] [id number] [place] [address] 93218- 1963 Mar, [place] [id number] [place] [address] 58161- 8408 Mar, Bipolar disorder, current episode mixed, mild F31.61 [place] [address] 42818- 6041 Mar, [place] [id number] [place] [address] 18418- 3589 Mar, Bipolar disorder in remission F31.70 [place] [address] [place] [address]- 9168 Jan, [facility] [place] [facility] [address] [id number] [address]- 9206 Jan, [facility] [place] [facility] [id number] [address]- 3376 Oct, Generalized anxiety disorder F41.1 and Bipolar disorder in remission F31.70 [facility] [place] [facility] [address] [place] [address] 2546 Oct, [facility] [place] [facility] [address] [facility] [id number] [place] [address]- 2326 Oct, [facility] [place] [facility] [id number] [place] [address]- 7586 Oct, [facility] [place] [facility] [address] [place] [address]- 0386 Oct, [facility] [place] [facility] [address] [address]70 Jul, [facility] [place] [facility] [id number] [address]- 0556 Jun, [facility] [place] [facility] [address] 4426 May, 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 and Generalized anxiety disorder F41.1 [facility] [place] [facility] [address] [address]- 8606 Jan, [facility] [place] [facility] [id number] [address] 2546 Jan, [facility] [place] [facility] [id number] [address]- 7396 Jan, 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 and Generalized anxiety disorder F41.1 [facility] [place] [facility] [address] [address]- 1266 Sep, [facility] [place] [facility] [address] [id number] [address]- 1046 Sep, [facility] [place] [facility] [address] [place] [address] 577868- 2102 Jul, 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 and Generalized anxiety disorder F41.1 [facility] [place] [facility] [address] [place] [address] 03003- 9897 Jul, Otalgia of right ear H92.01 [facility] [place] [facility] [id number] [place] [address] 08691- 0046 Jun, [facility] [place] [facility] [address] [place] [address] 93898- 8341 Mar, [facility] [place] [facility] [address] [place] [address] 36253- 8778 Jan, [facility] [place] [facility] [address] [place] [address] 20884- 2177 Jan, [facility] [place] [facility] [address] [place] [address] 19278- 8072 Jan, Bipolar 1 disorder, mixed, moderate 296.62 and SHERRY ( generalized anxiety disorder) 300.02 [facility] [place] [facility] [address] [place] [address] 81863- 4052 Jan, [facility] [place] [facility] [address] [address]- 4807 Nov, [facility] [place] [facility] [id number] [place] [address] 13166- 6798 Nov, [facility] [place] [facility] [address] [place] [address] 48881- 6263 Oct, [facility] [place] [facility] [address] [place] [address] 67866- 7499 Oct, [facility] [place] [facility] [address] [address]- 4777 Mar, [facility] [place] [facility] [id number] [place] [address] 11024- 1644 Mar, [facility] [place] [facility] [address] [id number] [place] [address]- 4514 Jan, [facility] [place] [facility] [address] [id number] [place] [address]- 1228 Jan, [facility] [place] [facility] [address] [id number] [place] [address]- 6571 December, [facility] [place] [facility] [address] [id number] [place] [address]- 5650 December, [facility] [place] [facility] [address] [id number] [place] [address]- 8264 December, [facility] [place] [facility] [address] [id number] [place] [address]- 0663 December, [facility] [place] [facility] [address] [id number] [place] [address]- 5965 December, [facility] [place] [facility] [address] [id number] [place] [address]- 2968 December, [facility] [place] [facility] [address] [id number] [place] [address]- 1400 December, [facility] [place] [facility] [address] [id number] [place] [address]- 2947 December, [facility] [place] [facility] [address] [id number] [place] [address]- 4272 Nov, [facility] [place] [facility] [address] [id number] [place] [address]- 2721 Nov, [facility] [place] [facility] [address] [id number] [place] [address]- 6923 Oct, [facility] [place] [facility] [address] [id number] [place] [address]- 0215 Oct, [facility] [place] [facility] [address] [id number] [place] [address]- 3722 Oct, [facility] [place] [facility] [address] [id number] [place] [address]- 8630 10 Oct, 2013 [facility] [place] [facility] [address] [id number] [place] [address]- 2085 Oct, [facility] [place] [facility] [address] [id number] [place] [address]- 4389 Sep, [facility] [place] [facility] [address] [id number] [place] [address]- 4994 Sep, [facility] [place] [facility] [address] [id number] [place] [address]- 6250 Sep, [facility] [place] [facility] [address] [id number] [place] [address]- 7244 Sep, [facility] [place] [facility] [address] [id number] [place] [address]- 4772 Aug, [facility] [place] [facility] [address] [id number] [place] [address]- 8315 Aug, [facility] [place] [facility] [address] [id number] [place] [address]- 4034 Aug, [facility] [place] [facility] [address] [id number] [place] [address]- 1117 Aug, [facility] [place] [facility] [address] [id number] [place] [address]- 8391 Aug, [facility] [place] [facility] [address] [id number] [place] [address]- 4253 16 Jul, 2013 [facility] [place] [facility] [address] [id number] [place] [address]- 0994 16 Jul, 2013 [facility] [place] [facility] [address] [id number] [place] [address]- 0342 11 Jul, 2013 [facility] [place] [facility] [address] [id number] [place] [address]- 8613 11 Jul, 2013 [facility] [place] [facility] [address] [id number] [place] [address]- 6836 Jun, [facility] [place] [facility] [address] [id number] [place] [address]- 2754 Jun, [facility] [place] [facility] [address] [id number] [place] [address]- 5496 May, [facility] [place] [facility] [address] [id number] [place] [address]- 5516 May, [facility] [place] [facility] [address] [id number] [place] [address]- 8257 May, [facility] [place] [facility] [address] [id number] [place] [address]- 3779 May, [facility] [place] [facility] [address] [id number] [place] [address]- 7762 May, [facility] [place] [facility] [address] [id number] [place] [address]- 3582 May, [facility] [place] [facility] [address] [id number] [place] [address]- 8441 May, [facility] [place] [facility] [address] [id number] [place] [address]- 0677 May, [facility] [place] [facility] [address] [id number] [place] [address]- 0465 May, [facility] [place] [facility] [address] [id number], [place] [address]- 6487 Apr, [facility] [place] [facility] [address] [id number], [place] [address] 2542 Apr, [facility] [place] [facility] [address] [id number] [place] [address]- 7934 Mar, [facility] [place] [facility] [address] [id number] [place] [address]- 9024 Mar, [facility] [place] [facility] [address] [id number] [place] [address] 2540 Mar, [facility] [place] [facility] [address] [id number] [place] [address]- 8643 Mar, [facility] [address] [id number] [place] [address]- 8088 Mar, [facility] [address] [id number] [place] [address]- 5921 Mar, [facility] [address] [id number] [place] [address]- 2999 Mar, [facility] [address] [id number] [place] [address]- 4526 Mar, [facility] [address] [id number] [place] [address]- 2051 Mar, [facility] [address] [id number] [place] [address]- 3900 Mar, [facility] [address] [id number] [place] [address]- 6650 Mar, [facility] [address] [id number] [place] [address]- 8069 Jan, [facility] [address] [id number] [place] [address]- 9494 Jan, [facility] [address] [id number] [place] [address]- 5624 Jan, [facility] [address] [id number] [place] [address]- 0235 December, [facility] [address] [id number] [place] [address]- 7462 December, [facility] [place] [facility] [address] [id number] [place] [address]- 6500 Nov, [facility] [place] [facility] [address] [id number] [place] [address]- 1914 Nov, [facility] [place] [facility] [address] [id number] [place] [address]- 2152 Oct, [facility] [address] [id number] [place] [address]- 6255 26 Oct, 2012 [facility] [address] [id number] [place] [address]- 9706 21 Oct, 2012 [facility] [address] [id number] [place] [address]- 5185 20 Oct, 2012 [facility] [place] [facility] [address] [id number] [place] [address]- 6626 19 Oct, 2012 [facility] [address] [id number] [place] [address]- 0428 19 Oct, 2012 [facility] [address] [id number] [place] [address]- 9496 17 Oct, 2012 [facility] [address] [id number] [place] [address]- 2878 16 Oct, 2012 [facility] [address] [id number] [place] [address]- 2854 14 Oct, 2012 [facility] [address] [id number] [place] [address]- 3647 13 Oct, 2012 [facility] [address] [id number] [place] [address]- 6764 05 Oct, 2012 [facility] [address] [id number] [place] [address]- 2677 14 Sep, 2012 [facility] [place] [facility] [address] [id number] [place] [address]- 1406 08 Sep, 2012 [facility] [place] [facility] [address] [id number] [place] [address]- 0406 21 Aug, 2012 [facility] [place] [facility] [address] [id number] [place] [address]- 3056 16 Aug, 2012 [facility] [place] [facility] [address] [id number] [place] [address] 12 Aug, 2012 [facility] [place] [facility] [address] [id number] [place] [address] 09 Aug, 2012 [facility] [address] [id number] [place] [address] Aug, [facility] [address] [id number] [place] [address] Jul, [facility] [address] [id number] [place] [address] Jul, [facility] [address] [id number] [place] [address] Jul, [facility] [address] [id number] [place] [address] Jul, [facility] [address] [id number] [place] [address] 18 Jul, 2012 [facility] [address] [id number] [place] [address] 17 Jul, 2012 [facility] [address] [id number] [place] [address] 14 Jul, 2012 [facility] [address] [id number] [place] [address] 14 Jul, 2012 [facility] [address] [id number] [place] [address] 06 Jul, 2012 [facility] [address] [id number] [place] [address] 06 Jul, 2012 [facility] [place] [facility] [address] [id number] [place] [address] 05 Jul, 2012 [facility] [place] [facility] [address] [id number] [place] [address]- [address] 05 Jul, 2012 [facility] [place] [facility] [address] [id number] [place] [address] 04 Jul, 2012 [facility] [address] [id number] [place] [address]- [address] 04 Jul, 2012 [facility] [place] [facility] [address] [id number] [place] [address] Jul, [facility] [place] [facility] [address] [id number] [place] [address] Jul, [facility] [place] [facility] [address] [id number] [place] [address] Jun, [facility] [place] [facility] [address] [id number] [place] [address] Jun, [facility] [place] [facility] [address] [id number] [place] [address] Jun, [facility] [place] [facility] [address] [id number] [place] [address] Jun, [facility] [place] [facility] [address] [id number] [place] [address] Jun, [facility] [place] [facility] [address] [id number] [place] [address] Jun, [facility] [place] [facility] [address] [id number] [place] [address] Jun, [facility] [place] [facility] [address] [id number] [place] [address] Jun, [facility] [place] [facility] [address] [id number] [place] [address] Jun, [facility] [place] [facility] [address] [id number] [place] [address] May, [facility] [place] [facility] [address] [id number] [place] [address] Mar, [facility] [place] [facility] [address] [id number] [place] [address] Mar, [facility] [place] [facility] [address] [id number] [place] [address] Mar, [facility] [place] [facility] [address] [id number] [place] [address] Mar, [facility] [place] [facility] [address] [id number] [place] [address] Jan, [facility] [place] [facility] [address] [id number] [place] [address] Jan, [facility] [place] [facility] [address] [id number] [place] [address] Jan, [facility] [place] [facility] [address] [id number] [place] [address]- [address] Jan, [facility] [place] [facility] [address] [id number] [place] [address] Jan, [facility] [place] [facility] [address] [id number] [place] [address] Jan, [facility] [place] [facility] [address] [id number] [place] [address] December, [facility] [place] [facility] [address] [id number] [place] [address] December, [facility] [place] [facility] [address] [id number] [place] [address] Nov, [facility] [place] [facility] [address] [id number] [place] [address] Nov, [facility] [place] [facility] [address] [id number] [place] [address] Oct, [facility] [place] [facility] [address] [id number] [address] Oct, [facility] [place] [facility] [address] [id number] [place] [address] Oct, [facility] [place] [facility] [address] [id number] [place] [address] Oct, [facility] [place] [facility] [address] [id number] [place] [address] Aug, [facility] [place] [facility] [address] [id number] [place] [address] Aug, [facility] [place] [facility] [address] [id number] [place] [address] Jun, [facility] [place] [facility] [address] [id number] [place] [address] Jun, [facility] [place] [facility] [address] [id number] [place] [address] Jun, [facility] [place] [facility] [address] [id number] [place] [address] Jun, [facility] [place] [facility] [address] [id number] [place] [address] Jun, [facility] [place] [facility] [address] [id number] [place] [address] May, [facility] [place] [facility] [address] [id number] [place] [address] May, [facility] [place] [facility] [address] [id number] [place] [address] May, [facility] [place] [facility] [address] [id number] [place] [address] May, [facility] [place] [facility] [address] [id number] [place] [address] May, [facility] [place] [facility] [address] [id number] [place] [address] May, [facility] [place] [facility] [address] [id number] [place] [address] May, [facility] [place] [facility] [address] [id number] [place] [address] Mar, [facility] [place] [facility] [address] [id number] [place] [address] May, [facility] [place] [facility] [address] [id number] [place] [address] Jan, [facility] [place] [facility] [address] [id number] [address] Jul, [facility] [place] [facility] [id number] [address] Jun, [facility] [place] [facility] [id number], [place] [address] Jun, [facility] [place] [facility] [id number], [place] [address] Jun, [facility] [place] [facility] [id number], [place] [address] Jun, [facility] [place] [facility] [id number], [place] [address] Jun, [facility] [place] [facility] [id number], [place] [address] May, [facility] [place] [facility] [id number], [place] [address] May, [facility] [place] [facility] [id number], [place] [address] May, [facility] [place] [facility] [id number], [place] [address] Jul, IMMUNIZATIONS No Known Immunizations SOCIAL HISTORY Never Assessed REASON FOR VISIT anxiety, dizziness , headache since yesterday -- thanh yañez PLAN OF CARE Activity Details Follow Up 3 Months, prn Reason: VITAL SIGNS Height 62 in 2017-10-22 Weight 161.0 lbs 2017-10-22 Temperature 98.0 degrees Fahrenheit 2017-10-22 Heart Rate 72 bpm 2017-10-22 Respiratory Rate 18 2017-10-22 BMI 29.44 kg/m2 2017-10-22 Blood pressure systolic 110 mmHg 2017-10-22 Blood pressure diastolic 76 mmHg 2017-10-22 MEDICATIONS Medication Instructions Dosage Frequency Start Date End Date Duration Status Aspir-81 81 MG Orally Once a day 1 tablet 24h 26 Apr, 2017 Jan, 90 days Active Glucocard Expression Test 1 subcutaneously 2 times a day test 2 times per day 12h 02 May, 2017 12 months Active Flonase 50 MCG/ACT Nasally Once a day 1 spray in each nostril 24h Jul, 30 day(s) Active Naproxen 500 mg Orally every 12 hrs 1 tablet with food or milk as needed 12h Oct, Active Atorvastatin Calcium 10 mg Orally Once a day 1 tablet 24h May, 90 days Active Ambien 5 mg Orally Once a day 1 tablet at bedtime 24h Oct, 30 days Active Abilify 5 MG Orally Once a day at bedtime 1 tablet Active Glimepiride 1 MG Orally Once a day 1 tablet with breakfast or the first main meal of the day 24h 09 May, 2017 90 days Active Lisinopril 2.5 MG Orally Once a day 2 tablets 24h 90 days Active BusPIRone HCl 15 MG Orally 3 times a day 1 tablet 8h 05 Aug, 2017 Active Azelastine HCl 0.05 % Ophthalmic Twice a day 1 drop into affected eye 12h Oct, Active Melatonin 5 mg Orally take at [...]
--- OUTSIDE RECORDS SUMMARY | 2018-04-18 15:39 | XMS REPORT ---
Author Author [facility] Address [address] [place] [address] Care Team Providers Care Crop Specialist Name Role Phone NADIA QUIÑONEZ Unavailable PROBLEMS Type Condition ICD9-CM Code ATY06-CC Code Onset Dates Condition Status SNOMED Code Problem History of hypertension Z86.79 Active 178416473 Problem Elevated LDL cholesterol level E78.00 Active 740931291 Problem Personality disorder F60.9 Active 63960974 Problem Other chronic pain G89.29 Active 39007715 Problem Hypoglycemia E16.2 Active 210018831 Problem Acute seasonal allergic rhinitis, unspecified trigger J30.2 Active 194261348 Problem Type 2 diabetes mellitus without complication, without long-term current use of insulin E11.9 Active 063149736 Problem Primary insomnia F51.01 Active 9073440 Problem Acute non intractable tension-type headache G44.209 Active 689234545 Problem Generalized anxiety disorder F41.1 Active 14751563 Problem Bipolar disorder in remission F31.70 Active 75494005 Problem Family history of diabetes insipidus Z83.49 Active 368488991 Problem Abnormal CBC R79.89 Active 044618403 Problem Bipolar disorder, current episode mixed, mild F31.61 Active 994857013 Problem History of diabetes mellitus Z86.39 Active 268922169 Problem Overweight (BMI 25.0-29.9) E66.3 Active 746849669 Problem Sore throat J02.9 Active 249748768 ALLERGIES Substance Reaction Event Type Date Status MetFORMIN HCl ER nausea Drug Allergy Oct, Active Zyprexa rash Drug Allergy Oct, Active Cipro rash Drug Allergy Oct, Active ENCOUNTERS Encounter Location Date Diagnosis [facility] [address] [facility] [id number] [address] Jan, Posterior right knee pain M25.561 [facility] [address] [facility] [id number] [address] 8[address] Jan, Scabies B86 [place] [address] [place] [id number] [place] [address] 44258- 1212 Jan, Bipolar disorder, current episode mixed, mild F31.61 and Personality disorder F60.9 [place] [address] [place] [id number] [place] [address] 02555- 6517 Jan, Cyst of ovary, unspecified laterality N83.209 [place] [address] [place] [id number] [place] [address] [address] December, Cyst of ovary, unspecified laterality N83.209 [place] [address] 554321- 8542 December, [place] [address] [id number] [place] [address] 60831- 2524 December, Dysuria R30.0 [place] [address] [address] [id number] [place] [address] 93425- 1010 December, [place] [address] [address] [id number] [place] [address] 51779- 0646 Nov, Bipolar disorder, current episode mixed, mild F31.61 and Personality disorder F60.9 [place] [address] [id number] [place] [address] 74176- 6341 Nov, Elevated LDL cholesterol level E78.00 and Type 2 diabetes mellitus without complication, without long-term current use of insulin E11.9 [place] [address] [place] [id number] [place] [address] 27006- 6329 Nov, Elevated LDL cholesterol level E78.00 and Type 2 diabetes mellitus without complication, without long-term current use of insulin E11.9 [place] [address] [place] [id number] [place] [address] 74393- 6437 Nov, Other chronic pain G89.29 and Pain in left leg M79.605 [place] [address] [place] [id number] [place] [address] 99981- 5220 Nov, Acute pain of left knee M25.562 ; Syncope, unspecified syncope type R55 and Hypoglycemia E16.2 [facility] [id number] [place] [address] 97376- 6453 30 Oct, 2017 Syncope, unspecified syncope type R55 [facility] [id number] [place] [address] 36522- 0637 Oct, Bipolar disorder, current episode mixed, mild F31.61 and Personality disorder F60.9 [place] [address] 81203- 2446 Oct, Lump of right breast N63.10 [place] [address] 29101- 8485 Oct, Generalized anxiety disorder F41.1 [place] [address] 99873- 6386 Oct, Generalized anxiety disorder F41.1 ; Bipolar disorder in remission F31.70 ; Bipolar disorder, current episode mixed, mild F31.61 and Primary insomnia F51.01 [place] [address] [id number] [place] [address] 81181- 7238 Oct, Primary insomnia F51.01 and Lump of right breast N63.10 [facility] [address] [id number] [place] [address] 80724- 6881 16 Oct, [address] [facility] [id number] [place] [address] 98324 -8232 14 Oct, 2017 Allergic conjunctivitis of both eyes H10.13 and Acute non intractable tension-type headache G44.209 [facility] [address] 86838- 2315 14 Oct, 2017 [facility] [id number] [place] [address] 33314- 1015 Oct, Bipolar disorder, current episode mixed, mild F31.61 [place] [address] 15137- 5109 22 Sep, 2017 Right flank pain R10.9 and Thoracic spine pain M54.6 [place] [address] 16538- 7921 16 Sep, 2017 Generalized anxiety disorder F41.1 and Bipolar disorder, current episode mixed, mild F31.61 [place] [address] 18235- 8718 Sep, [place] [address] 49985- 7766 Sep, Generalized anxiety disorder F41.1 ; Bipolar disorder in remission F31.70 and Personality disorder F60.9 [place] [address] 82492- 9952 12 Sep, 2017 Spasm of thoracic back muscle M62.830 ; Type 2 diabetes mellitus without complication, without long-term current use of insulin E11.9 and Generalized anxiety disorder F41.1 [place] [address] [place] [address] [id number] [place] [address] 58803- 0729 Sep, Bipolar disorder, current episode mixed, mild F31.61 and Personality disorder F60.9 [place] [address] [address] [id number] [place] [address] 96984- 4737 Aug, [place] [address] [address] [id number] [place] [address] 27448- 6008 Aug, Bipolar disorder, current episode mixed, mild F31.61 and Personality disorder F60.9 [place] [address] [address] [id number] [place] [address] 47200- 8757 Aug, Type 2 diabetes mellitus without complication, without long- term current use of insulin E11.9 ; Generalized anxiety disorder F41.1 ; Bipolar disorder in remission F31.70 and Overweight (BMI 25.0-29.9) E66.3 [place] [address] [place] [address] [id number] [place] [address] 30922- 9410 Aug, Type 2 diabetes mellitus without complication, without long- term current use of insulin E11.9 ; Elevated LDL cholesterol level E78.00 and Bipolar disorder, current episode mixed, mild F31.61 [facility] [address] [id number] -5396 Jul, Vaginal discharge N89.8 ; Skin irritation R23.8 and Dysuria R30.0 [facility] [address] [id number] -4567 Jul, Acute seasonal allergic rhinitis, unspecified trigger J30.2 and Chest pain, unspecified type R07.9 [place] [address] [place] [address]- 922 Jun, Bipolar disorder, current episode mixed, mild F31.61 [place] [address] [place] 456337- 8591 Jun, [place] [address] [place] 456335- 2511 Jun, Bipolar disorder, current episode mixed, mild F31.61 and Personality disorder F60.9 [place] [address] [place] 456339- 1198 Jun, [place] [address] [place] [id number]- 7619 Jun, Type 2 diabetes mellitus without complication, without long- term current use of insulin E11.9 and Dysuria R30.0 [place] [address] [place] [id number]- 1816 May, Bipolar disorder, current episode mixed, mild F31.61 ; Personality disorder F60.9 and Homeless Z59.0 [place] [address] [place] 456332- 2401 May, Type 2 diabetes mellitus without complication, without long- term current use of insulin E11.9 [place] [address] [place] [id number]- 7258 May, History of hypertension Z86.79 [place] [address] [place] [id number] [place] [address] 77085- 0294 May, [place] [address] [address] [id number] [place] [address] 87713- 9635 May, Type 2 diabetes mellitus without complication, without long- term current use of insulin E11.9 ; Elevated LDL cholesterol level E78.00 ; Low serum HDL R74.8 and Encounter for immunization Z23 [place] [address] 62230- 4109 Apr, Encounter to establish care Z76.89 ; Abnormal CBC R79.89 ; History of hypertension Z86.79 ; Overweight (BMI 25.0-29.9) E66.3 ; Family history of diabetes insipidus Z83.49 ; Sore throat J02.9 and Tonsillitis with exudate J03.90 [place] [address] 61802- 3333 Apr, Bipolar disorder, current episode mixed, mild F31.61 [place] [address] [place] [id number] [place] [address] 33391- 7873 Mar, Bipolar disorder, current episode mixed, mild F31.61 [place] [address] [place] [id number] [place] [address] 62265- 8569 Mar, [place] [address] [place] [id number] [place] [address] 05605- 1629 Mar, [place] [address] [place] [id number] [place] [address] 41347- 4431 Mar, Bipolar disorder in remission F31.70 [place] [address] [id number] [place] [address] 32849- 3977 Jan, [place] [address] [id number] [place] [address] 88685- 6784 Jan, [place] [address] [id number] [place] [address] 96512- 6257 30 Mar, 2017 Generalized anxiety disorder F41.1 and Bipolar disorder in remission F31.70 [facility] [address] [address]- 7416 30 Oct, 2016 [facility] [address] [place] [address] [id number] [address]- 5956 Oct, [facility] [address] [address]- 0496 Oct, [facility] [id number] [place] [address] 87313- 0239 Oct, [facility] [id number] [place] [address] 53402- 4910 Jul, [facility] [id number] [place] [address] 046545- 6086 Jun, [facility] [address] [place] [address] 29527- 5330 May, 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 and Generalized anxiety disorder F41.1 [facility] [address] [address]- 9556 Jan, [facility] [address] [address]- 3066 Jan, [facility] [address] [address]- 5367 Jan, 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 and Generalized anxiety disorder F41.1 [facility] [address] [address] 2546 Sep, [facility] [address] [address] 2546 Sep, [facility] [address] [address] [id number] [address]- 2546 Jul, 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 and Generalized anxiety disorder F41.1 [facility] [id number] [place] [address] 15536- 5564 Jul, Otalgia of right ear H92.01 [facility] [address] [id number] [place] [address] 74361- 7914 Jun, [facility] [id number] [place] [address] 42053- 7196 Mar, [facility] [id number] [place] [address] 83167- 6895 Jan, [facility] [address] [id number] [place] [address] 79695- 7772 Jan, [facility] [id number] [place] [address] 44160- 4347 Jan, Bipolar 1 disorder, mixed, moderate 296.62 and SHERRY ( generalized anxiety disorder) 300.02 [facility] [id number] [place] [address] 79773- 8355 Jan, [facility] [address] [address] [id number] [place] [address] 18289- 9043 Nov, [facility] [id number] [place] [address] 98981- 8655 Nov, [facility] [address] [id number] [place] [address] 92008- 7492 Oct, [facility] [address] [id number] [place] [address] 55266- 2180 Oct, [facility] [address] [id number] [place] [address] 38958- 2424 Mar, [facility] [id number] [place] [address] 93620- 0929 Mar, [facility] [id number] [place] [address] 42319- 2729 Jan, [facility] [id number] [place] [address] 80690- 7069 Jan, [facility] [address] [id number] [place] [address]- 6066 December, [facility] [place] [facility] [address] [id number] [place] [address]- 8507 December, [facility] [place] [facility] [address] [id number] [place] [address]- 8928 December, [facility] [place] [facility] [address] [id number] [place] [address]- 3502 December, [facility] [place] [facility] [address] [id number] [place] [address]- 7460 December, [facility] [place] [facility] [address] [id number] [place] [address]- 0138 December, [facility] [place] [facility] [address] [id number] [place] [address]- 1183 December, [facility] [place] [facility] [address] [id number] [place] [address]- 6424 December, [facility] [place] [facility] [address] [id number] [place] [address]- 9554 Nov, [facility] [place] [facility] [address] [id number] [place] [address]- 0203 Nov, [facility] [place] [facility] [address] [id number] [place] [address]- 4222 Oct, [facility] [place] [facility] [address] [id number] [place] [address]- 6716 Oct, [facility] [place] [facility] [address] [id number] [place] [address]- 4741 Oct, [facility] [place] [facility] [address] [id number] [place] [address]- 4816 Oct, [facility] [place] [facility] [address] [id number] [place] [address]- 3576 Oct, [facility] [place] [facility] [address] [id number] [place] [address]- 7603 Sep, [facility] [place] [facility] [address] [id number] [place] [address]- 5241 Sep, [facility] [place] [facility] [address] [id number] [place] [address]- 7325 Sep, [facility] [place] [facility] [address] [facility] [id number] [place] [address]- 2441 Sep, [facility] [place] [facility] [address] [id number] [place] [address]- 0418 Aug, [facility] [place] [facility] [address] [id number] [place] [address]- 4366 Aug, [facility] [place] [facility] [address] [id number] [place] [address]- 4290 Aug, [facility] [place] [facility] [address] [id number] [place] [address]- 9507 Aug, [facility] [place] [facility] [address] [id number] [place] [address]- 4221 Aug, [facility] [place] [facility] [address] [id number] [place] [address]- 8209 Jul, [facility] [place] [facility] [address] [id number] [place] [address]- 3163 Jul, [facility] [place] [facility] [address] [id number] [place] [address]- 4535 Jul, [facility] [place] [facility] [address] [id number], [place] [address]- 2632 Jul, [facility] [place] [facility] [address] [id number] [place] [address]- 3114 Jun, [facility] [place] [facility] [address] [id number] [place] [address]- 1057 Jun, [facility] [place] [facility] [address] [facility] [id number] [place] [address]- 3046 May, [facility] [place] [facility] [address] [id number] [place] [address]- 8495 May, [facility] [address] [id number] [place] [address]- 0895 May, [facility] [place] [facility] [address] [id number] [place] [address]- 3646 May, [facility] [address] [id number] [place] [address]- 5266 May, [facility] [place] [facility] [address] [id number] [place] [address]- 2172 May, [facility] [address] [id number] [place] [address]- 7430 May, [facility] [address] [id number] [place] [address]- 3606 May, [facility] [place] [facility] [address] [id number] [place] [address]- 8383 May, [facility] [address] [id number] [place] [address]- 4011 Apr, [facility] [place] [facility] [address] [id number] [place] [address]- 6368 Apr, [facility] [address] [id number] [place] [address]- 7705 Mar, [facility] [place] [facility] [address] [id number] [place] [address]- 1878 Mar, [facility] [place] [facility] [address] [id number] [place] [address]- 2855 Mar, [facility] [place] [facility] [address] [id number] [place] [address]- 1291 Mar, [facility] [place] [facility] [address] [id number] [place] [address]- 8178 Mar, [facility] [place] [facility] [address] [id number] [place] [address]- 9240 Mar, [facility] [address] [id number] [place] [address]- 9953 Mar, [facility] [place] [facility] [address] [id number] [place] [address]- 4916 Mar, [facility] [place] [facility] [address] [id number] [place] [address]- 8844 Mar, [facility] [place] [facility] [address] [id number] [place] [address]- 8746 Mar, [facility] [place] [facility] [address] [id number] [place] [address]- 4479 Mar, [facility] [place] [facility] [address] [id number] [place] [address]- 8136 Jan, [facility] [place] [facility] [address] [id number] [place] [address]- 2134 Jan, [facility] [place] [facility] [address] [id number] [place] [address]- 0605 Jan, [facility] [place] [facility] [address] [id number] [place] [address]- 6789 December, [facility] [place] [facility] [address] [id number] [place] [address]- 8526 December, [facility] [place] [facility] [address] [id number] [place] [address]- 8076 Nov, [facility] [place] [facility] [address] [id number] [place] [address]- 6573 Nov, [facility] [place] [facility] [address] [id number] [place] [address]- 9016 Oct, [facility] [place] [facility] [address] [id number] [place] [address]- 4936 Oct, [facility] [place] [facility] [address] [id number] [place] [address]- 6093 Oct, [facility] [place] [facility] [address] [id number] [address]- 4115 20 Oct, 2012 [facility] [address] [id number] [place] [address]- 6103 19 Oct, 2012 [facility] [address] [id number] [place] [address]- 3603 19 Oct, 2012 [facility] [address] [id number] [place] [address]- 7322 17 Oct, 2012 [facility] [address] [id number] [place] [address]- 1456 16 Oct, 2012 [facility] [address] [id number] [place] [address]- 7815 14 Oct, 2012 [facility] [address] [id number] [place] [address]- 4182 13 Oct, 2012 [facility] [address] [id number] [place] [address]- 0805 05 Oct, 2012 [facility] [address] [id number] [place] [address]- 2693 14 Sep, 2012 [facility] [address] [id number] [place] [address]- 2959 08 Sep, 2012 [facility] [address] [id number] [place] [address]- 9876 21 Aug, 2012 [facility] [address] [id number] [place] [address]- 1335 16 Aug, 2012 [facility] [address] [id number] [place] [address]- 1986 Aug, [facility] [address] [id number] [place] [address]- 9715 09 Aug, 2012 [facility] [address] [id number] [place] [address]- 7284 Aug, [facility] [address] [id number] [place] [address]- 4730 Jul, [facility] [place] [facility] [address] [id number] [place] [address]- 8076 Jul, [facility] [place] [facility] [address] [id number] [place] [address]- 8546 Jul, [facility] [place] [facility] [address] [id number] [place] [address]- 5746 Jul, [facility] [place] [facility] [address] [id number] [place] [address]- 1946 18 Jul, 2012 [facility] [place] [facility] [address] [id number] [place] [address]- 2806 17 Jul, 2012 [facility] [place] [facility] [address] [id number] [place] [address]- 7016 Jul, [facility] [place] [facility] [address] [id number] [place] [address]- 1226 14 Jul, 2012 [facility] [place] [facility] [address] [id number] [place] [address]- 7438 Jul, [facility] [place] [facility] [address] [id number] [place] [address] Jul, [facility] [place] [facility] [address] [id number] [place] [address] Jul, [facility] [place] [facility] [address] [id number] [place] [address] Jul, [facility] [place] [facility] [address] [id number] [place] [address] Jul, [facility] [place] [facility] [address] [id number] [place] [address] Jul, [facility] [place] [facility] [address] [id number] [place] [address] Jul, [facility] [place] [facility] [address] [id number] [place] [address] Jul, [facility] [place] [facility] [address] [id number] [place] [address] Jun, [facility] [place] [facility] [address] [id number] [place] [address] Jun, [facility] [place] [facility] [address] [id number] [place] [address] Jun, [facility] [place] [facility] [address] [id number] [place] [address] Jun, [facility] [place] [facility] [address] [id number] [place] [address]- [address] Jun, [facility] [place] [facility] [address] [id number] [place] [address] Jun, [facility] [place] [facility] [address] [id number] [place] [address]- [address] Jun, [facility] [place] [facility] [address] [id number] [place] [address]- [address] Jun, [facility] [place] [facility] [address] [id number], [place] [address] Jun, [facility] [place] [facility] [address] [id number] [place] [address] May, [facility] [place] [facility] [address] [id number] [place] [address] Mar, [facility] [place] [facility] [address] [id number], [place] [address] Mar, [facility] [place] [facility] [address] [id number], [place] [address] Mar, [facility] [place] [facility] [address] [id number] [place] [address] Mar, [facility] [place] [facility] [address] [id number], [place] [address] Jan, [facility] [place] [facility] [address] [id number] [place] [address] Jan, [facility] [place] [facility] [address] [id number] [place] [address] 1990 Jan, [facility] [place] [facility] [address] [id number] [place] [address] Jan, [facility] [place] [facility] [address] [id number] [place] [address] Jan, [facility] [place] [facility] [address] [id number] [place] [address] Jan, [facility] [place] [facility] [address] [id number] [place] [address]- [address] December, [facility] [place] [facility] [address] [id number] [place] [address] December, [facility] [place] [facility] [address] [id number] [place] [address] Nov, [facility] [place] [facility] [address] [id number] [place] [address]- [address] Nov, [facility] [place] [facility] [address] [id number] [place] [address] Oct, [facility] [place] [facility] [address] [id number] [place] [address] Oct, [facility] [place] [facility] [address] [id number] [place] [address] Oct, [facility] [place] [facility] [address] [id number] [place] [address] Oct, [facility] [facility] [address] [id number] [place] [address] Aug, [facility] [place] [facility] [address] [id number] [place] [address] Aug, [facility] [place] [facility] [address] [id number] [place] [address] Jun, [facility] [place] [facility] [address] [id number] [place] [address] Jun, [facility] [place] [facility] [address] [id number] [place] [address] Jun, [facility] [place] [facility] [address] [id number] [place] [address] Jun, [facility] [place] [facility] [address] [id number] [place] [address] Jun, [facility] [place] [facility] [address] [id number] [place] [address] May, [facility] [place] [facility] [address] [id number] [place] [address] May, [facility] [place] [facility] [address] [id number] [place] [address] May, [facility] [place] [facility] [address] [id number] [place] [address] May, [facility] [place] [facility] [address] [id number] [place] [address] May, [facility] [place] [facility] [address] [id number] [place] [address] May, [facility] [place] [facility] [address] [id number] [place] [address] May, [facility] [place] [facility] [address] [id number] [place] [address] Mar, [facility] [place] [facility] [address] [id number] [place] [address] May, [facility] [place] [facility] [address] [id number] [place] [address] Jan, [facility] [place] [facility] [address] [id number] [place] [address] Jul, [facility] [place] [facility] [address] [id number] [place] [address] Jun, [facility] [place] [facility] [address] [id number] [address] Jun, [facility] [address] [id number] [address] Jun, [facility] [id number] [address] Jun, [facility] [address] [id number] [address] Jun, [facility] [address] [id number] [address] May, [facility] [address] [id number] [address] May, [facility] [id number] [address] May, [facility] [address] [id number] [address] Jul, IMMUNIZATIONS No Known Immunizations SOCIAL HISTORY Never Assessed REASON FOR VISIT Pain (acute) stomach , patient states she is having nausea and diarrhea since yesterday , she noticed this everytime she eats beans -- thanh yañez PLAN OF CARE Activity Details Follow Up prn Reason: VITAL SIGNS Height 62 in 2017-10-16 Weight 159.0 lbs 2017-10-16 Temperature 98.7 degrees Fahrenheit 2017-10-16 Heart Rate 70 bpm 2017-10-16 Respiratory Rate 18 2017-10-16 BMI 29.08 kg/m2 2017-10-16 Blood pressure systolic 116 mmHg 2017-10-16 Blood pressure diastolic 68 mmHg 2017-10-16 MEDICATIONS Medication Instructions Dosage Frequency Start Date End Date Duration Status Glimepiride 1 MG Orally Once a day 1 tablet with breakfast or the first main meal of the day 24h May, 90 days Active BusPIRone HCl 15 MG Orally 3 times a day 1 tablet 8h Aug, 30 days Active Abilify 5 MG Orally Once a day at bedtime 1 tablet 30 days Active Aspir-81 81 MG Orally Once a day 1 tablet 24h Apr, Jan, 90 days Active Trazodone HCl 100 mg Orally at bedtime as needed for sleep 1 tabs Apr 90 days Active Glucocard Expression Test 1 subcutaneously 2 times a day test 2 times per day 12h May, 12 months Active Atorvastatin Calcium 10 mg Orally Once a day 1 tablet 24h May, 90 days Active Flonase 50 MCG/ACT Nasally Once a day 1 spray in each nostril 24h Jul, 30 day(s) Not-Taking Naproxen 500 mg Orally every 12 hrs 1 tablet with food or milk as needed 12h Oct, Active Lisinopril 2.5 MG Orally [...]
--- OUTSIDE RECORDS SUMMARY | 2018-04-18 15:39 | XMS REPORT ---
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 Name Role Phone Soraya RUTH Unavailable PROBLEMS Type Condition ICD9-CM Code ZSF34-LO Code Onset Dates Condition Status SNOMED Code Problem History of hypertension Z86.79 Active 605309612 Problem Elevated LDL cholesterol level E78.00 Active 060402354 Problem Personality disorder F60.9 Active 24617395 Problem Other chronic pain G89.29 Active 43886576 Problem Hypoglycemia E16.2 Active 506329001 Problem Acute seasonal allergic rhinitis, unspecified trigger J30.2 Active 211246621 Problem Type 2 diabetes mellitus without complication, without long-term current use of insulin E11.9 Active 380726301 Problem Primary insomnia F51.01 Active 1971216 Problem Acute non intractable tension-type headache G44.209 Active 882702385 Problem Generalized anxiety disorder F41.1 Active 69778619 Problem Bipolar disorder in remission F31.70 Active 99031960 Problem Family history of diabetes insipidus Z83.49 Active 446532906 Problem Abnormal CBC R79.89 Active 249653481 Problem Bipolar disorder, current episode mixed, mild F31.61 Active 337148244 Problem History of diabetes mellitus Z86.39 Active 561844932 Problem Overweight (BMI 25.0-29.9) E66.3 Active 834485986 Problem Sore throat J02.9 Active 050633762 ALLERGIES Substance Reaction Event Type Date Status MetFORMIN HCl ER nausea Drug Allergy Oct, Active Zyprexa rash Drug Allergy Oct, Active Cipro rash Drug Allergy Oct, Active ENCOUNTERS Encounter Location Date Diagnosis [facility] [place] [address] [facility] [id number] [address] Jan, Epigastric pain R10.13 and UTI symptoms R39.9 [facility] [place] [id number] [place] [address] 04820- 2264 Jan, Posterior right knee pain M25.561 [place] [id number] [place] [address] 26997- 8222 Jan, Posterior right knee pain M25.561 [place] [id number] [place] [address] 34909- 1125 Jan, Scabies B86 [place] [id number] [place] [address] 92159- 8183 Jan, Bipolar disorder, current episode mixed, mild F31.61 and Personality disorder F60.9 [place] [id number] [place] [address] 27916- 1099 Jan, Cyst of ovary, unspecified laterality N83.209 [place] [id number] [place] [address] 61306- 3953 December, Cyst of ovary, unspecified laterality N83.209 [place] [id number] [place] [address] 20956- 0493 December, [place] [id number] [place] [address] 06882- 9023 December, Dysuria R30.0 [place] [id number] [place] [address] 61689- 9348 December, [place] [id number] [place] [address] 11008- 9172 Nov, Bipolar disorder, current episode mixed, mild F31.61 and Personality disorder F60.9 [place] [id number] [place] [address] 11927- 2927 Nov, Elevated LDL cholesterol level E78.00 and Type 2 diabetes mellitus without complication, without long-term current use of insulin E11.9 [facility] [place] [id number] [place] [address] 93668- 9749 Nov, Elevated LDL cholesterol level E78.00 and Type 2 diabetes mellitus without complication, without long-term current use of insulin E11.9 [place] [id number] [place] [address] 35108- 9542 04 Nov, 2017 Other chronic pain G89.29 and Pain in left leg M79.605 [place] [id number] [place] [address] 20302- 662 02 Nov, 2017 Acute pain of left knee M25.562 ; Syncope, unspecified syncope type R55 and Hypoglycemia E16.2 [place] [id number] [place] [address] 02901- 4245 Oct, Syncope, unspecified syncope type R55 [place] [address] 15414- 8954 Oct, Bipolar disorder, current episode mixed, mild F31.61 and Personality disorder F60.9 [place] [address] 84920- 4096 Oct, Lump of right breast N63.10 [place] [id number] [place] [address] 19238- 2735 Oct, Generalized anxiety disorder F41.1 [place] [id number] [place] [address] 00004- 0930 Oct, Generalized anxiety disorder F41.1 ; Bipolar disorder in remission F31.70 ; Bipolar disorder, current episode mixed, mild F31.61 and Primary insomnia F51.01 [place] [id number] [place] [address] 43869- 0330 Oct, Primary insomnia F51.01 and Lump of right breast N63.10 [place] [id number] [place] [address] 42545- 5924 16 Oct, 2017 Enteritis K52.9 [facility] [id number] [place] [address] 71295 -7249 14 Oct, 2017 Allergic conjunctivitis of both eyes H10.13 and Acute non intractable tension-type headache G44.209 [place] [id number] [place] [address] 83810- 8877 Oct, [place] [id number] [place] [address] 34264- 7672 Oct, Bipolar disorder, current episode mixed, mild F31.61 [place] [id number] [place] [address] 80333- 8233 Sep, Right flank pain R10.9 and Thoracic spine pain M54.6 [place] [id number] [place] [address] 69274- 8642 Sep, Generalized anxiety disorder F41.1 and Bipolar disorder, current episode mixed, mild F31.61 [place] [id number] [place] [address] 14466- 5724 Sep, [place] [id number] [place] [address] 09718- 7541 Sep, Generalized anxiety disorder F41.1 ; Bipolar disorder in remission F31.70 and Personality disorder F60.9 [place] [id number] [place] [address] 38007- 5269 Sep, Spasm of thoracic back muscle M62.830 ; Type 2 diabetes mellitus without complication, without long-term current use of insulin E11.9 and Generalized anxiety disorder F41.1 [place] [id number] [place] [address] 41977- 5293 Sep, Bipolar disorder, current episode mixed, mild F31.61 and Personality disorder F60.9 [place] [id number] [place] [address] 97138- 7360 Aug, [place] [id number] [place] [address] 33565- 1136 Aug, Bipolar disorder, current episode mixed, mild F31.61 and Personality disorder F60.9 [place] [id number] [place] [address] 30777- 5933 Aug, Type 2 diabetes mellitus without complication, without long- term current use of insulin E11.9 ; Generalized anxiety disorder F41.1 ; Bipolar disorder in remission F31.70 and Overweight (BMI 25.0-29.9) E66.3 [place] [id number] [place] [address] 46460- 7199 Aug, Type 2 diabetes mellitus without complication, without long- term current use of insulin E11.9 ; Elevated LDL cholesterol level E78.00 and Bipolar disorder, current episode mixed, mild F31.61 [facility] [id number] [place] [address] 28628 -4905 Jul, Vaginal discharge N89.8 ; Skin irritation R23.8 and Dysuria R30.0 [facility] [place] [id number] [place] [address] 77731 -2949 Jul, Acute seasonal allergic rhinitis, unspecified trigger J30.2 and Chest pain, unspecified type R07.9 [place] [address] 74070- 4544 Jun, Bipolar disorder, current episode mixed, mild F31.61 [place] [address] 01910- 6982 Jun, [place] [address] 78352- 2340 Jun, Bipolar disorder, current episode mixed, mild F31.61 and Personality disorder F60.9 [place] [id number] [place] [address] 18659- 7946 Jun, [place] [address] 68659- 6670 Jun, Type 2 diabetes mellitus without complication, without long- term current use of insulin E11.9 and Dysuria R30.0 [place] [address] 42245- 5469 May, Bipolar disorder, current episode mixed, mild F31.61 ; Personality disorder F60.9 and Homeless Z59.0 [place] [id number] [place] [address] 08044- 4385 May, Type 2 diabetes mellitus without complication, without long- term current use of insulin E11.9 [place] [id number] [place] [address] 46720- 2476 May, History of hypertension Z86.79 [place] [address] 88682- 8403 May, [address] 68837- 2895 May, Type 2 diabetes mellitus without complication, without long- term current use of insulin E11.9 ; Elevated LDL cholesterol level E78.00 ; Low serum HDL R74.8 and Encounter for immunization Z23 [address] 99262- 9762 Apr, Encounter to establish care Z76.89 ; Abnormal CBC R79.89 ; History of hypertension Z86.79 ; Overweight (BMI 25.0-29.9) E66.3 ; Family history of diabetes insipidus Z83.49 ; Sore throat J02.9 and Tonsillitis with exudate J03.90 [place] [id number] [place] [address] 74354- 9311 Apr, Bipolar disorder, current episode mixed, mild F31.61 [place] [id number] [place] [address] 69061- 1839 Mar, [place] [id number] [place] [address] 45936- 3512 Mar, Bipolar disorder, current episode mixed, mild F31.61 [place] [id number] [place] [address] 31573- 3570 Mar, [place] [id number] [place] [address] 66017- 9848 Mar, Bipolar disorder in remission F31.[address] [id number] [place] [address]- 7946 Jan, [facility] [place] [id number] [address]- 9786 Jan, [facility] [place] [address] [id number] [place] [address]- 6206 Oct, Generalized anxiety disorder F41.1 and Bipolar disorder in remission F31.70 [facility] [place] [id number] [place] [address]- 5656 Oct, [facility] [place] [id number] [place] [address]- 2936 Oct, [facility] [place] [id number] [place] [address]- 1536 Oct, [facility] [place] [id number] [place] [address]- 4340 Oct, [facility] [place] [id number] [place] [address]- 7474 Jul, [facility] [place] [id number] [address]- 1556 Jun, [facility] [place] [id number] [address] 9327 May, 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 and Generalized anxiety disorder F41.1 [facility] [place] [id number] [address]- 0596 Jan, [facility] [place] [id number] [address]- 2546 Jan, [facility] [place] [id number] 2976 Jan, 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 and Generalized anxiety disorder F41.1 [facility] [place] [id number] [address]- 8286 Sep, [facility] [place] [id number] [address]- 6370 Sep, [facility] [place] [id number] [place] [address] 76040- 3368 Jul, 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 and Generalized anxiety disorder F41.1 [facility] [place] [id number] [address]- 7500 Jul, Otalgia of right ear H92.01 [facility] [place] [id number] [place] [address] 61364- 8119 Jun, [facility] [place] [id number] [place] [address] 13258- 1628 Mar, [facility] [place] [id number] [place] [address] 00251- 2967 Jan, [facility] [place] [id number] [place] [address] 24840- 3095 Jan, [facility] [place] [id number] [place] [address] 58558- 8958 Jan, Bipolar 1 disorder, mixed, moderate 296.62 and SHERRY ( generalized anxiety disorder) 300.02 [facility] [place] [id number] [address]- 0092 Jan, [facility] [place] [id number] [address]- 6484 Nov, [facility] [place] [id number] [place] [address] 90589- 8603 Nov, [facility] [place] [id number] [address]- 2832 Oct, [facility] [place] [id number] [place] [address] 10804- 1457 Oct, [facility] [place] [id number], [place] [address]- 2820 Mar, [facility] [place] [address] [address] [address] [place] [address]- 5214 Mar, [facility] [place] [facility] [address] [id number] [place] [address]- 7819 Jan, [facility] [place] [facility] [address] [id number] [place] 6257 Jan, [facility] [place] [facility] [address] [id number] [place] [address]- 3436 December, [facility] [place] [facility] [address] [id number] [place] [address]- 5339 December, [facility] [place] [facility] [address] [id number] [place] [address]- 2061 December, [facility] [place] [facility] [address] [id number] [place] [address]- 6629 December, [facility] [place] [facility] [address] [id number] [place] [address]- 3828 December, [facility] [place] [facility] [address] [id number] [place] [address]- 2241 December, [facility] [place] [facility] [address] [id number] [place] [address]- 2771 December, [facility] [place] [facility] [address] [id number] [place] [address]- 4018 December, [facility] [place] [facility] [address] [id number] [place] [address]- 3650 Nov, [facility] [place] [facility] [address] [id number] [place] [address]- 2620 Nov, [facility] [place] [facility] [address] [id number] [place] [address]- 2377 Oct, [facility] [place] [facility] [address] [id number] [place] [address]- 0200 Oct, [facility] [place] [facility] [address] [id number] [place] [address]- 4094 Oct, [facility] [place] [facility] [address] [id number] [place] [address]- 8536 Oct, [facility] [place] [facility] [address] [id number] [place] [address]- 4972 Oct, [facility] [place] [facility] [address] [id number] [place] [address]- 8354 Sep, [facility] [place] [facility] [address] [id number] [place] [address]- 7491 Sep, [facility] [place] [facility] [address] [id number] [place] [address]- 9219 Sep, [facility] [place] [facility] [address] [id number] [place] [address]- 5468 Sep, [facility] [place] [facility] [address] [id number] [place] [address]- 9008 Aug, [facility] [place] [facility] [address] [id number] [place] [address]- 5278 Aug, [facility] [place] [facility] [address] [id number] [place] [address]- 1721 Aug, [facility] [place] [facility] [address] [id number] [place] [address]- 5557 Aug, [facility] [place] [facility] [address] [id number] [place] [address]- 0945 Aug, [facility] [place] [facility] [address] [id number] [place] [address]- 5119 16 Jul, 2013 [facility] [place] [facility] [address] [id number] [place] [address]- 4403 16 Jul, 2013 [facility] [place] [facility] [address] [id number] [place] [address]- 8925 Jul, [facility] [place] [facility] [address] [id number] [place] [address]- 8876 Jul, [facility] [place] [facility] [address] [id number] [place] [address]- 5921 Jun, [facility] [place] [facility] [address] [id number] [place] [address]- 6800 Jun, [facility] [place] [facility] [address] [id number] [place] [address]- 6424 May, [facility] [place] [facility] [address] [id number] [place] [address]- 7451 May, [facility] [place] [facility] [address] [id number] [place] [address]- 7691 May, [facility] [place] [facility] [address] [id number] [place] [address]- 3033 May, [facility] [place] [facility] [address] [id number] [place] [address]- 0165 May, [facility] [place] [facility] [address] [id number] [place] [address]- 7759 May, [facility] [place] [facility] [address] [id number] [place] [address]- 4678 May, [facility] [place] [facility] [address] [id number] [place] [address]- 6600 May, [facility] [place] [facility] [address] [id number] [place] [address]- 9597 May, [facility] [place] [facility] [address] [id number] [place] [address]- 9558 Apr, [facility] [place] [facility] [address] [id number] [place] [address]- 0122 Apr, [facility] [place] [facility] [address] [id number] [place] [address]- 4270 Mar, [facility] [place] [facility] [address] [id number] [place] [address]- 6095 Mar, [facility] [place] [facility] [address] [id number] [place] [address]- 1245 Mar, [facility] [place] [facility] [address] [id number] [place] [address]- 3460 Mar, [facility] [place] [facility] [address] [id number] [place] [address]- 2649 Mar, [facility] [place] [facility] [address] [id number] [place] [address]- 0593 Mar, [facility] [place] [facility] [address] [id number] [place] [address]- 1627 Mar, [facility] [place] [facility] [address] [id number] [place] [address]- 6156 Mar, [facility] [place] [facility] [address] [id number] [place] [address]- 2836 Mar, [facility] [place] [facility] [address] [id number] [place] [address]- 2281 Mar, [facility] [place] [facility] [address] [id number] [place] [address]- 4393 Mar, [facility] [place] [facility] [address] [id number] [place] [address]- 2188 Jan, [facility] [place] [facility] [address] [id number] [place] [address]- 2858 Jan, [facility] [place] [facility] [address] [id number] [place] [address]- 0034 Jan, [facility] [place] [facility] [address] [id number] [place] [address]- 9388 December, [facility] [place] [facility] [address] [id number] [place] [address]- 9273 December, [facility] [place] [facility] [address] [id number] [place] [address]- 3803 Nov, [facility] [place] [facility] [address] [id number] [place] 5317 Nov, [facility] [place] [facility] [address] [id number] [place] [address]- 1188 Oct, 2012 [facility] [address] [id number] [place] [address]- 7893 26 Oct, 2012 [facility] [address] [id number] [place] [address]- 8218 21 Oct, 2012 [facility] [address] [id number] [place] [address]- 1796 20 Oct, 2012 [facility] [place] [facility] [address] [id number] [place] [address] 19 Oct, 2012 [facility] [address] [id number] [place] [address] 19 Oct, 2012 [facility] [address] [id number] [place] [address] 8446 17 Oct, 2012 [facility] [address] [id number] [place] [address] 16 Oct, 2012 [facility] [place] [facility] [address] [id number] [place] [address] 14 Oct, 2012 [facility] [place] [facility] [address] [id number] [place] [address] 164[address] 13 Oct, 2012 [facility] [place] [facility] [address] [id number] [place] [address] 20[address] 05 Oct, 2012 [facility] [place] [facility] [address] [id number] [place] [address] 69[address] 14 Sep, 2012 [facility] [place] [facility] [address] [id number] [place] [address] 08 Sep, 2012 [facility] [place] [facility] [address] [id number] [place] [address] 6547 21 Aug, 2012 [facility] [place] [facility] [address] [id number] [place] [address] 8[address] 16 Aug, 2012 [facility] [place] [facility] [address] [id number] [place] [address] Aug, [facility] [place] [facility] [address] [id number] [place] [address] 93[address] 09 Aug, 2012 [facility] [address] [id number] [place] [address] Aug, [facility] [address] [id number] [place] [address] Jul, [facility] [address] [id number] [place] [address] Jul, [facility] [address] [id number] [place] [address] Jul, [facility] [address] [id number] [place] [address] Jul, [facility] [address] [id number] [place] [address] 5775 18 Jul, 2012 [facility] [address] [id number] [place] [address] 9778 17 Jul, 2012 [facility] [address] [id number] [place] [address] 14 Jul, 2012 [facility] [address] [id number] [place] [address]- 8783 14 Jul, 2012 [facility] [address] [id number] [place] [address] 06 Jul, 2012 [facility] [address] [id number] [place] [address] Jul, [facility] [address] [id number] [place] [address] 05 Jul, 2012 [facility] [address] [id number] [place] [address] 1781 05 Jul, 2012 [facility] [address] [id number] [place] [address] 1081 04 Jul, 2012 [facility] [address] [id number] [place] [address] Jul, [facility] [place] [facility] [address] [id number] [place] [address] Jul, [facility] [facility] [address] [id number] [place] [address] Jul, [facility] [place] [facility] [address] [id number] [place] [address] Jun, [facility] [place] [facility] [address] [id number] [place] [address] Jun, [facility] [place] [facility] [address] [id number] [place] [address] Jun, [facility] [place] [facility] [address] [id number] [place] [address] Jun, [facility] [place] [facility] [address] [id number] [place] [address] Jun, [facility] [place] [facility] [address] [id number], [place] [address] Jun, [facility] [place] [facility] [address] [id number] [place] [address] Jun, [facility] [address] [id number], [place] [address] Jun, [facility] [address] [id number], [place] [address] Jun, [facility] [address] [id number], [place] [address] May, [facility] [address] [id number] [place] [address] Mar, [facility] [facility] [address] [id number], [place] [address] Mar, [facility] [address] [id number], [place] [address] Mar, [facility] [address] [id number], [place] [address] Mar, [facility] [address] [id number] [place] [address] Jan, [facility] [address] [id number] [place] [address] Jan, [facility] [address] [id number] [place] [address] Jan, [facility] [place] [facility] [address] [id number] [place] [address] Jan, [facility] [address] [id number] [place] [address] Jan, [facility] [address] [id number] [place] [address] Jan, [facility] [address] [facility] [id number] [place] [address] December, [facility] [address] [id number] [place] [address] December, [facility] [facility] [address] [id number] [place] [address] Nov, [facility] [address] [id number] [place] [address] Nov, [facility] [address] [id number] [place] [address] Oct, [facility] [address] [id number] [place] [address] Oct, [facility] [address] [id number] [place] [address] Oct, [facility] [address] [id number] [place] [address] Oct, [facility] [address] [facility] [id number] [place] [address] Aug, [facility] [address] [id number] [place] [address] Aug, [facility] [address] [id number] [place] [address] Jun, [facility] [address] [id number] [place] [address] Jun, [facility] [address] [id number] [place] [address]60 Jun, [facility] [address] [id number] [place] [address] Jun, [facility] [address] [id number] [place] [address] Jun, [facility] [address] [id number] [place] [address] 3270 May, [facility] [address] [id number] [place] [address] May, [facility] [address] [id number] [place] [address] May, [facility] [address] [id number] [place] [address] May, [facility] [address] [id number] [place] [address] May, [facility] [address] [id number] [place] [address] May, [facility] [address] [id number] [place] [address] May, [facility] [address] [id number] [place] [address] Mar, [facility] [address] [id number] [place] [address] May, [facility] [address] [id number] [place] [address] Jan, [facility] [place] [address] [facility] [id number], [place] [address] Jul, [facility] [place] [address] [facility] [id number], [place] [address] Jun, [facility] [place] [address] [facility] [id number], [place] [address] Jun, [facility] [place] [address] [facility] [id number], [place] [address] Jun, [facility] [place] [address] [facility] [id number], [place] [address] Jun, [facility] [place] [address] [facility] [id number] [place] [address] Jun, [facility] [place] [id number], [place] [address] May, [facility] [place] [id number], [place] [address] May, [facility] [place] [id number], [place] [address] May, [facility] [place] [id number], [place] [address] Jul, IMMUNIZATIONS No Known Immunizations SOCIAL HISTORY Never Assessed REASON FOR VISIT f/u PLAN OF CARE Activity Details Follow Up Next available Reason:anxiety, depression VITAL SIGNS MEDICATIONS Medication Instructions Dosage Frequency Start Date End Date Duration Status BusPIRone HCl 15 MG Orally 3 times a day 1 tablet 8h 05 Aug, 2017 30 days Unknown Aspir-81 81 MG Orally Once a day 1 tablet 24h Apr, Jan, 90 days Unknown Glucocard Expression Test 1 subcutaneously 2 times a day test 2 times per day 12h May, 12 months Unknown Naproxen 500 mg Orally every 12 hrs 1 tablet with food or milk as needed 12h 14 Oct, 2017 Unknown Lisinopril 2.5 MG Orally Once a day 2 tablets 24h 90 days Unknown Flonase 50 MCG/ACT Nasally Once a day 1 spray in each nostril 24h 07 Jul, 2017 30 day(s) Unknown Atorvastatin Calcium 10 mg Orally Once a day 1 tablet 24h May, 90 days Unknown Azelastine HCl 0.05 % Ophthalmic Twice a day 1 drop into affected eye 12h 14 Oct, 2017 Unknown Ambien 5 mg Orally Once a day 1 tablet at bedtime 24h 20 Oct, 2017 30 days Unknown Abilify 5 MG Orally Once a day at bedtime 1 tablet 30 days Unknown Glimepiride 1 MG Orally Once a day 1 tablet with breakfast or the first main meal of the day 24h 09 May, 2017 90 days Unknown Melatonin 5 mg Orally take at bedtime 1 tablet Apr, 30 days Unknown RESULTS No Results PROCEDURES Procedure Date Ordered Result Body Site Psychotherapy, patient &/family, 30 minutes, established patient October 21, 2017 INSTRUCTIONS MEDICATIONS ADMINISTERED No Known Medications MEDICAL (GENERAL) HISTORY Type Description Date Medical History hypertension Medical History depression (hx of suicidal plan in 2012) Medical History insomnia Medical History bipolar disorder Surgical History Appendix Surgical History Tubal Ligation Hospitalization History Child /surgery Hospitalization History psych inpatient treatment, SI 2011
--- OUTSIDE RECORDS SUMMARY | 2018-04-18 15:58 | XMS REPORT | Continuity of Care Document ---
Author Author [facility] Address Unknown Phone Unavailable Allergies Active Description Code Type Severity Reaction Onset Reported/Identified Relationship to Patient Clinical Status Yes ciprofloxacin Drug N/A N/A Yes ZyPREXA Drug N/A N /A Yes ciprofloxacin Drug Allergy N/ A N/A 12/05/2008 Yes ciprofloxacin Drug Allergy 12/05/2008 Yes Zyprexa Drug Allergy N/A N/A 04/02/2009 Yes Zyprexa Drug Allergy 04/02/2009 Yes ciprofloxacin [id number] Drug Allergy Unknown N/A 06/05/2011 Yes ciprofloxacin HCl [id number] Drug Allergy Unknown N/A 06/05/2011 Yes olanzapine [id number] Drug Allergy Mild rash 01/15/2012 Yes CIPROFLOXACIN 96923 DRUG INGREDI N/A Itching 07/11/2013 Yes OLANZAPINE 00826 DRUG INGREDI N /A Itching 07/11/2013 Yes HYDROCODONE-ACETAMINOPHEN 68805 DRUG Low Itching~Rash 09/06/2016 09/06/2016 Medications Medication [...] Pollen 04/06/2008 708.9 Urticaria/ hives Unspec 04/06/2008 JOSESIOT LUKE APRN S 477.0 Allergic Rhinitis Due [...] 12/05/2008 401.1 HYPERTENSION, BENIGN ESSENTIAL 12/05/2008 TI MOLD CHIPPER, JOSESITO S 307.40 Insomnia 12/05/2008 TI MOLD CHIPPER, JOSESITO S 401.1 HYPERTENSION, BENIGN ESSENTIAL 12/05/2008 [...] APRN 401.1 HYPERTENSION, BENIGN ESSENTIAL 12/05/2008 TI MOLD CHIPPER, JOSESITO S 307.40 Insomnia 12/05/2008 TI MOLD CHIPPER, JOSESITO S 401.1 HYPERTENSION, BENIGN ESSENTIAL 01/06/2009 [...] GILLIAM APRN 535.50 Gastritis Unspec 01/06/2009 TAWANA ONIELLMARLENE 789.00 Abdominal Pain Unspecified Site 01/06/2009 JOSESITO [...] 788.1 Pain During Urination (dysuria) 04/02/2009 TI MOLD CHIPPER, JOSESITO S 626.8 Dysfunctional Uterine Bleeding 04/02/2009 TI MOLD CHIPPER, JOSESITO S 788.1 Pain During Urination (dysuria) 05/09/2009 487.1 Influenza, With Other Respiratory Manifestations 05/09/2009 780.60 Fever [as Symptom] 05/09/2009 WERDER DO, ONEAL F 487.1 Influenza, With Other Respiratory Manifestations 05/09/2009 WERDER DO, ONEAL F 780.60 Fever [as Symptom] 05/09/2009 WERDER [...] 05/09/2009 780.60 Fever [as Symptom] 05/09/2009 TI MOLD CHIPPER, JOSESITO S 487.1 Influenza, With Other Respiratory Manifestations 05/09/2009 TI ONEILL, JOSESITO S 780.60 Fever [as Symptom] 05/09/2009 487.1 Influenza, With Other Respiratory Manifestations 05/09/2009 780.60 Fever [as Symptom] 05/09/2009 487.1 Influenza, With Other Respiratory Manifestations 05/09/2009 780.60 Fever [as Symptom] 05/09/2009 WERDER DO, ONEAL F 487.1 Influenza, With Other Respiratory Manifestations 05/09/2009 WERDER DO, ONEAL F 780.60 Fever [as Symptom] 05/09/2009 TI MOLD CHIPPER, JOSESITO S 487.1 Influenza, With Other Respiratory Manifestations 05/09/2009 TI MOLD CHIPPER, JOSESITO S 780.60 Fever [as Symptom] 05/09/2009 MAXIMINO KHANNA MD 487.1 Influenza, With Other Respiratory Manifestations 05/09/2009 MAXIMINO KHANNA MD 780.60 Fever [as Symptom] 05/09/2009 MARIN DOAARONA K 487.1 Influenza, With Other Respiratory Manifestations 05/09/2009 AARON MARIN DOA K 780.60 Fever [as Symptom] 05/09/2009 TI MOLD CHIPPER, JOSESITO S 487.1 Influenza, With Other Respiratory Manifestations 05/09/2009 TI MOLD CHIPPER, JOSESITO S 780.60 Fever [as Symptom] 05/09/2009 GILLIAM APRN, MARLENE SANDERSON 487.1 Influenza, With Other Respiratory Manifestations 05/09/2009 GILLIAM MOLD CHIPPERMARLENE 780.60 Fever [as Symptom] 05/09/2009 TI ONEILL JOSESITO S 487.1 Influenza, With Other Respiratory Manifestations 05/09/2009 IT ONEILL JOSESITO S 780.60 Fever [as Symptom] 07/31/2009 611.6 Nonpuerperal Galactorrhea Left 07/31/2009 WERONEAL JACKSON DO F 611.6 Nonpuerperal Galactorrhea Left 07/31/2009 WERONEAL JACKSON DO F 611.6 Nonpuerperal Galactorrhea Left 07/31/2009 611.6 Nonpuerperal Galactorrhea Left 07/31/2009 ALINA MARIN DO K 611.6 Nonpuerperal Galactorrhea Left 07/31/2009 ALINA MARIN DO K 611.6 Nonpuerperal Galactorrhea Left 07/31/2009 611.6 Nonpuerperal Galactorrhea Left 07/31/2009 JUAN RAMON [...] DO, ONEAL F 709.01 Vitiligo 01/17/2010 TI MOLD CHIPPER, JOSESITO S 616.10 Vaginitis And Vulvovaginitis, Unspecified 01/17/2010 TI MOLD CHIPPER, JOSESITO S 709.01 Vitiligo 01/17/2010 MAXIMINO KHANNA [...] MAI MARLENE ELMOREH 709.01 Vitiligo 01/17/2010 TI MOLD CHIPPER, JOSESITO S 616.10 Vaginitis And Vulvovaginitis, Unspecified 01/17/2010 TI MOLD CHIPPER, JOSESITO S 709.01 Vitiligo 02/28/2010 599.0 Urinary [...] LUKE APRN 461.9 Sinusitis Acute 03/25/2011 V72.31 Online Facilitator Exam, Routine 03/25/2011 ONEAL CROCKETT DO V72.31 Online Facilitator Exam, Routine 03/25/2011 ONEAL CROCKETT DO V72.31 Online Facilitator Exam, Routine 03/25/2011 V72.31 Online Facilitator Exam, Routine 03/25/2011 MARIN ALINA HORTON V72.31 Online Facilitator Exam, Routine 03/25/2011 MARIN DOALINA K V72.31 Online Facilitator Exam, Routine 03/25/2011 V72.31 Online Facilitator Exam, Routine 03/25/2011 JOSESITO LUKE APRN S V72.31 Online Facilitator Exam, Routine 03/25/2011 V72.31 Online Facilitator Exam, Routine 03/25/2011 V72.31 Online Facilitator Exam, Routine 03/25/2011 ONEAL CROCKETT DO V72.31 Online Facilitator Exam, Routine 03/25/2011 JOSESITO LUKE APRN S V72.31 Online Facilitator Exam, Routine 03/25/2011 MAXIMINO KHANNA MD V72.31 Online Facilitator Exam, Routine 03/25/2011 MARIN ALINA HORTON V72.31 Online Facilitator Exam, Routine 03/25/2011 JOSESITO LUKE APRN S V72.31 Online Facilitator Exam, Routine 03/25/2011 TAWANA ONEILL MARLENE ELMOREH V72.31 Online Facilitator Exam, Routine 03/25/2011 JOSESITO LUKE APRN S V72.31 Online Facilitator Exam, Routine 05/23/2011 789.00 Abdominal Pain Feels [...] OF DIABETES MELLITUS 12/18/2011 724.2 [facility]BAGO [facility] 724.2 [facility] 12/18/2011 [facility] ONEAL HORTON F 724.2 LUMBAGO 12/18/2011 724.2 LUMBAGO 12/18/2011 MARIN DOAARONA K 724.2 LUMBAGO 12/18/2011 MARIN DO, ALINA K 724.2 LUMBAGO 12/18/2011 724.2 LUMBAGO 12/18/2011 JOSESITO LUKE APRN S 724.2 LUMBAGO 12/18/2011 724.2 LUMBAGO 12/18/2011 724.2 LUMBAGO 12/18/2011 [facility] F 724.2 LUMBAGO 12/18/2011 JOSESITO [...] LUKE APRN S 780.52 INSOMNIA UNSPECIFIED 07/21/2012 MAIXMINO KHANNA MD 780.52 INSOMNIA UNSPECIFIED 07/21/2012 ALINA MARIN DO 780.52 INSOMNIA UNSPECIFIED 07/21/2012 JOSESITO LUKE APRN 780.52 INSOMNIA UNSPECIFIED 07/21/2012 MARLENE [...] APRNMARLENE 786.05 SHORTNESS OF BREATH 11/12/2013 KUSUM ALATORRE, KAVON Roman Ot 724.5 BACKACHE NOS 11/12/2013 KUSUM ALATORRE, KAVON Roman Ot 789.09 ABDOMINAL PAIN, OTHER SPECIFIED SITE 05/19/2015 V 599152 Abdominal Pain VUONG, DENNIS D 05/19/2015 V R10.32 Left lower quadrant pain VUONG, DENNIS D 07/20/2015 BRANDAU, BENNIE A V 12 Back Pain BRANDAU, BENNIE A 07/20/2015 BRANDAU, BENNIE A V [id number] Congestion BRANDAU, BENNIE A 07/20/2015 BRANDAU, BENNIE A V 52 Headache BRANDHA, BENNIE A 04/06/2016 LEACH, ANA K V Other LEACH, ANA K 04/06/2016 LEACH, ANA K V M79.601 Pain In Right Arm LEACH, ANA K 04/06/2016 LEACH, ANA K V M79.602 Pain In Left Arm LEACH, ANA K 04/06/2016 LEACH, ANA K V R20.2 Paresthesia of skin LEACH, ANA K 05/09/2016 BASSETT, P SELENA V 881170 Otalgia BASSETT, P SELENA 05/09/2016 BASSETT, P [...] WORKING R51 Headache 01/04/2017 MAXIMINO DUNN V 807414 Arm Pain MAXIMINO DUNN 01/04/2017 MAXIMINO DUNN [...] BREATH 03/30/2017 KAVON NOE MD Ot Z79.84 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 CONSULTANT (CURRENT) USE OF ORAL HYPOGLYC 03/30/2017 KAVNO NOE MD Ot Z90.49 ACQUIRED ABSENCE OF [...] BREATH 04/03/2017 KAVON NOE MD Ot Z79.84 SENIOR LIVING (CURRENT) USE OF ORAL HYPOGLYC 04/03/2017 KAVON NOE MD, Ot Z90.49 ACQUIRED ABSENCE OF OTHER SPECIFIED PART 04/03/2017 KAVON NOE MD, Ot Z98.51 TUBAL LIGATION STATUS 10/27/2017 SREEKANTH WILKINS MOLD CHIPPER Ot N63.10 UNSPECIFIED LUMP IN THE RIGHT BREAST, UN 10/27/2017 SREEKANTH WILKINS R MOLD CHIPPER Ot N63.21 UNSPECIFIED LUMP IN THE LEFT BREAST, UPP 11/13/2017 SREEKANTH WILKINS R MOLD CHIPPER Ot N63.10 UNSPECIFIED LUMP IN THE RIGHT BREAST, UN 11/13/2017 SREEKANTH WILKINS R MOLD CHIPPER Ot N63.21 UNSPECIFIED LUMP IN THE LEFT BREAST, UPP 12/17/2017 SREEKANTH WILKINS MOLD CHIPPER Ot N63.10 UNSPECIFIED LUMP IN THE RIGHT BREAST, UN 12/17/2017 SREEKANTH WILKINS MOLD CHIPPER Ot N63.21 UNSPECIFIED LUMP IN THE LEFT [...] PAIN 12/17/2017 CASEY MANCIA MD, Ot Z79.84 ADVANCED 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 CONSULTANT (CURRENT) USE OF ORAL HYPOGLYC 12/17/2017 CASEY [...] THE RIGHT BREAST, UN 12/17/2017 SREEKANTH WILKINS MOLD CHIPPER Ot N63.21 UNSPECIFIED LUMP IN THE LEFT [...] PAIN 12/21/2017 CASEY MANCIA MD, Ot Z79.84 ADVANCED 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 CONSULTANT (CURRENT) USE OF ORAL HYPOGLYC 12/21/2017 CASEY MANCIA MD, Ot Z87.59 PERSONAL HISTORY OF COMP OF PREG, CHLDBR 12/21/2017 CASEY MANCIA MD, Ot Z88.1 ALLERGY STATUS TO OTHER ANTIBIOTIC AGENT 12/21/2017 CASEY MANCIA MD, Ot Z88.8 ALLERGY STATUS TO OTH DRUG/MEDS/BIOL SUB 12/21/2017 CASEY MANCIA MD, Ot Z90.49 ACQUIRED ABSENCE OF OTHER SPECIFIED PART 01/27/2018 SREEKANTH WILKINS MOLD CHIPPER Ot N63.10 UNSPECIFIED LUMP IN THE RIGHT BREAST, UN 01/27/2018 SREEKANTH WILKINS MOLD CHIPPER Ot N63.21 UNSPECIFIED LUMP IN THE LEFT [...] MD Ot R51 HEADACHE 02/01/2018 KAVON NOE MD Ot T14.8XXA OTHER INJURY OF UNSPECIFIED BODY REGION, 02/01/2018 KAVON NOE MD, Ot W57.XXXA BIT/STUNG BY NONVENOM INSECT OTH NONVE 02/01/2018 KVAON NOE MD Ot Z79.84 ADVANCED 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 CONSULTANT (CURRENT) USE OF ORAL HYPOGLYC 02/01/2018 KAVON NOE MD Ot Z88.1 ALLERGY STATUS TO OTHER ANTIBIOTIC AGENT 02/01/2018 KAVON NOE MD Ot Z88.8 ALLERGY STATUS TO OTH DRUG/MEDS/BIOL SUB 02/01/2018 KAVON NOE MD Ot Z90.49 ACQUIRED ABSENCE OF OTHER SPECIFIED PART 02/01/2018 KAVON NOE MD, Ot Z98.51 TUBAL LIGATION STATUS 02/19/2018 BERNPEYMAN BEJARANO Ot E11.9 TYPE 2 DIABETES MELLITUS WITHOUT COMPLIC 02/19/2018 SIMONA SANDERSIS Ot F32.9 MAJOR DEPRESSIVE DISORDER, SINGLE EPISOD 02/19/2018 MARILYN PEYMAN Ot F41.9 ANXIETY DISORDER, UNSPECIFIED 02/19/2018 BERNDARCI PEYMAN Ot K92.0 HEMATEMESIS 02/19/2018 MARILYN PEYMAN Ot N39.0 URINARY TRACT INFECTION, SITE NOT SPECIF 02/19/2018 MARILYN PEYMAN Ot R11.10 VOMITING, UNSPECIFIED 02/19/2018 BERNDARCI PEYMAN Ot Z79.84 ADVANCED 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 CONSULTANT (CURRENT) USE OF ORAL HYPOGLYC 02/19/2018 MARILYN PEYMAN Ot Z88.1 ALLERGY STATUS TO OTHER ANTIBIOTIC AGENT 02/19/2018 BERNDARCI PEYMAN Ot Z88.8 ALLERGY STATUS TO OTH DRUG/MEDS/BIOL SUB 02/19/2018 BERNOT PEYMAN Ot Z90.89 ACQUIRED ABSENCE OF OTHER ORGANS 02/19/2018 BERNSIMONA BEJARANOIS Ot Z98.51 TUBAL LIGATION STATUS Procedures Code Description Performed By Performed On Tereso Daryl Sarai 06/23/2012 92297 A1C (IN-HOUSE) 06/23/2012 64973 PSYCH DIAG INTER EXAM 07/07/2012 95061 SLEEP STUDY 07/07/2012 28084 EKG, TRACING (IN-HOUSE) 07/14/2012 94752 TRICHOMONAS (IN-HOUSE) 10/14/2012 59224 GC/CHLAM PROBE (STATE) 10/15/2012 31099 PAP SMEAR 10/15/2012 Q0091 PAP SMEAR OBTAIN SMEAR 10/15/2012 17661 CULTURE UROGENITAL 10/15/2012 45155 UA W/ CULTURE IF INDICATED 01/21/2013 J2550 PHENERGAN INJECTION UP TO 50 MG 01/24/2013 96713 THERAPUTIC INJ SQ/IM 01/24/2013 29215 A1C (IN-HOUSE) 05/11/2013 33902 MICRO ALBUMIN-IN HOUSE 05/11/2013 43817 XRAY SHOULDER LEFT COMP 2 VIEWS 05/20/2013 24414 THERAPUTIC INJ SQ/IM 05/25/2013 67322 UA W/ CULTURE IF INDICATED 05/25/2013 87001 Emergency department visit for the evalu FREEDOM [...] 10*3/uL 0.4-1.08 VAGINITIS SCREEN - 10/02/15 11:15 4781647 Negative 0739088 Negative 4586505 Positive NEISSERIA GONORRHOEAE AMPLIFIED PROBE - 10/02/15 11:15 3311958 Negative Negative CHLAMYDIA TRACHOMATIS AMPLIFIED PROBE - 10/02/15 11:15 1990243 Negative Negative CBC WITH AUTO DIFFERENTIAL - [...] RED CELL DISTRIBUTION WIDTH 13.6 % 11.9-15.5 2741647 13.0 10E9/L 3.5-10.5 9622978 3.20 10E9/L 0.90-2.90 6133693 0.80 10E9/L 0.30-0.90 9467252 0.20 10E9/L 0.05-0.50 1209369 8.80 10E9/L 1.70-7.00 2879493 0.10 10E9/L 0.00-0.30 PT T APTT - [...] mg/dL 0.2 WBC UA 0-3 /HPF 0-3 1711845 Negative Negative CHLAMYDIA TRACHOMATIS AMPLIFIED PROBE - 11/07/15 12:10 6982923 Negative Negative NEISSERIA GONORRHOEAE AMPLIFIED PROBE - 11/07/15 12:10 7065030 Negative Negative SEDIMENTATION RATE, MANUAL - 05/09/16 08:51 7241383 35 mm/Hr <=20 C-REACTIVE PROTEIN - 05/09/16 08:51 6902815 1.1 mg/dL <=0.9 COMPREHENSIVE METABOLIC PANEL - [...] RED CELL DISTRIBUTION WIDTH 14.1 % 11.9-15.5 1313552 14.5 10E9/L 3.5-10.5 4612798 4.20 10E9/L 0.90-2.90 1318518 0.90 10E9/L 0.30-0.90 8935475 0.20 10E9/L 0.05-0.50 7024854 9.20 10E9/L 1.70-7.00 4857175 0.10 10E9/L 0.00-0.30 COMPREHENSIVE METABOLIC PANEL - [...] mmol/L 136-145 URINE CULTURE - 06/07/16 15:39 8270456 Urogenital jah URINALYSIS, REFLEX CULTURE IF NEEDED [...] mg/dL 0.2 WBC UA 0-3 /HPF 0-3 7256458 Negative Negative STREP SCREEN CONFIRMATION - 09/06/16 17:31 3796606 Negative CBC With Differential/Platelet - 03/30/17 11:45 [...] 09:40 Hemoglobin A1c 6.7 % 4.8-5.6 Thyroid Cocke Profile - 04/28/17 09:40 TSH 1.670 uIU/mL [...] rouleaux detection by light microscopy SLIGHT NRG Complete blood count (CBC) with automated white blood cell (WBC) differential - 02/17/18 12:20 Blood leukocytes automated count (number/volume) 14.4 10*3/uL 4.3-11.0 Blood erythrocytes automated count (number/volume) 4.17 10*6/uL 4.35-5.85 Venous blood hemoglobin measurement (mass/volume) 12.2 g/dL 11.5-16.0 Blood hematocrit (volume fraction) 36 % 35-52 Automated erythrocyte mean corpuscular volume 85 [foz_us] 80-99 Automated erythrocyte mean corpuscular hemoglobin (mass per erythrocyte) 29 pg 25-34 Automated erythrocyte mean corpuscular hemoglobin concentration measurement ( mass/volume) 34 g/dL 32-36 Automated erythrocyte distribution width ratio 13.2 % 10.0-14.5 Automated blood platelet count (count/volume) 509 10*3/uL 130-400 Automated blood platelet mean volume measurement 11.4 [foz_us] 7.4-10.4 Automated blood neutrophils/100 leukocytes 70 % 42-75 Automated blood lymphocytes/100 leukocytes 24 % 12-44 Blood monocytes/100 leukocytes 5 % 0-12 Automated blood eosinophils/100 leukocytes 1 % 0-10 Automated blood basophils/100 leukocytes 0 % 0-10 Blood neutrophils automated count (number/volume) 10.1 10*3 1.8-7.8 Blood lymphocytes automated count (number/volume) 3.5 10*3 1.0-4.0 Blood monocytes automated count (number/volume) 0.7 10*3 0.0-1.0 Automated eosinophil count 0.1 10*3/uL 0.0-0.3 Automated blood basophil count (count/volume) 0.1 10*3/uL 0.0-0.1 Comprehensive metabolic panel - 02/17/18 12:20 Serum or plasma sodium measurement (moles/volume) 137 mmol/L 135-145 Serum or plasma potassium measurement (moles/volume) 3.6 mmol/L 3.6-5.0 Serum or plasma chloride measurement (moles/volume) 103 mmol/L 98-107 Carbon dioxide 27 mmol/L 21-32 Serum or plasma anion gap determination (moles/volume) 7 mmol/L 5-14 Serum or plasma urea nitrogen measurement (mass/volume) 12 mg/dL 7-18 Serum or plasma creatinine measurement (mass/volume) 0.81 mg/dL 0.60-1.30 Serum or plasma urea nitrogen/creatinine mass ratio 15 NRG Serum or plasma creatinine measurement with calculation of estimated glomerular filtration rate > NRG Serum or plasma glucose measurement (mass/volume) 144 mg/dL 70-105 Serum or plasma calcium measurement (mass/volume) 9.2 mg/dL 8.5-10.1 Serum or plasma total bilirubin measurement (mass/volume) 0.2 mg/dL 0.1-1.0 Serum or plasma alkaline phosphatase measurement (enzymatic activity/volume) 73 U/L 40-136 Serum or plasma aspartate aminotransferase measurement (enzymatic activity/ volume) 24 U/L 5-34 Serum or plasma alanine aminotransferase measurement (enzymatic activity/volume ) 25 U/L 0-55 Serum or plasma protein measurement (mass/volume) 7.8 g/dL 6.4-8.2 Serum or plasma albumin measurement (mass/volume) 4.1 g/dL 3.2-4.5 Serum or plasma amylase measurement (enzymatic activity/volume) - 02/17/18 12: 20 Serum or plasma amylase measurement (enzymatic activity/volume) 18 U /L 25-125 Lipase - 02/17/18 12:20 Lipase 14 U/L 8-78 Complete urinalysis with reflex to culture - 02/17/18 12:20 Urine color determination YELLOW NRG Urine clarity determination CLEAR NRG Urine pH measurement by test strip 6 5-9 Specific gravity of urine by test strip 1.025 1.016- 1.022 Urine protein assay by test strip, semi-quantitative 1+ NEGATIVE Urine glucose detection by automated test [...] erythrocyte count by microscopy (number/high power field) NONE NRG Automated urine sediment leukocyte count by microscopy (number/high power field ) [HPF] NRG Bacteria detection in urine sediment by light microscopy FEW NRG Squamous epithelial cells detection in urine sediment by light microscopy 25-50 NRG Crystals detection in urine sediment by light microscopy NONE NRG Casts detection in urine sediment by light microscopy NONE NRG Mucus detection in urine sediment by light microscopy SMALL NRG Complete urinalysis with reflex to culture NO NRG Renal epithelial cells detection in urine sediment by light microscopy NONE NRG Blood manual differential performed detection - 02/17/18 12:20 Blood monocytes/100 leukocytes 4 % NRG Manual blood segmented neutrophils/100 leukocytes 68 % NRG Blood band neutrophils/100 leukocytes 1 % NRG Manual blood lymphocytes/100 leukocytes 19 % NRG Manual eosinophils/100 leukocytes in nose 0 % NRG Manual blood basophils/100 leukocytes 1 % NRG Blood lymphocytes variant/100 leukocytes 7 % NRG Blood rouleaux detection by light microscopy MOD NRG Encounters ACCT No. Visit Date/Time Discharge Status Pt. Type Provider Facility Loc./Unit Complaint [id number] 01/04/2017 08:02:44 01/04/2017 08:35:00 DIS Emergency [facility] [id number] 09/06/2016 17:04:47 09/06/2016 19:01:00 DIS Emergency [facility] [id number] 05/09/2016 08:02:00 05/09/2016 12:17:00 DIS Emergency [facility] [id number] 04/06/2016 16:17:58 04/06/2016 17:37:00 DIS Emergency [facility] [id number] 11/07/2015 09:16:36 11/07/2015 12:27:00 DIS Emergency [facility] [id number] 10/23/2015 15:42:24 10/23/2015 23:59:59 CLS Outpatient GIGI GREEN [facility] [id number] 10/21/2015 17:19:05 10/21/2015 23:59:59 CLS Outpatient GIGI GREEN [facility] [id number] 10/02/2015 10:17:23 10/02/2015 23:59:59 CLS Outpatient IKEMARGARITO [facility] EXP [id number] 09/25/2015 09:05:41 09/25/2015 23:59:59 CLS Outpatient ESPINORUTH [facility] EXPCR [id number] 07/20/2015 15:15:02 07/20/2015 23:59:59 CLS Outpatient BENNIE LOPEZ [facility]PCR [id number] 06/07/2016 14:04:27 Document Registration [id number] 10/12/2015 15:33:36 Document Registration [id number] 10/02/2015 11:24:39 Document Registration [id number] 07/03/2015 13:44:27 Document Registration [id number] 02/18/2018 11:40:00 02/18/2018 23:59:59 [facility] [id number] 12/15/2017 15:00:00 Document Registration [id number] 04/28/2017 08:40:00 Document Registration [id number] 08/15/2016 09:53:00 08/15/2016 11:23:00 DIS Emergency Drake Perez [facility] ER EENT [id number] 02/22/2018 15:00:00 02/22/2018 23:59:59 CLS Preadmit OTHER, UNLISTED [facility] RAD POSTERIOR RIGHT KNEE PAIN [id number] 02/17/2018 11:59:00 02/17/2018 16:00:00 DIS Outpatient BERNOT, PEYMAN [facility] ER ABD PAIN,VOMITING [id number] 01/27/2018 14:25:00 01/27/2018 17:24:00 DIS Outpatient KAVON NOE MD [facility] ER RT SIDE RASH [id number] 01/05/2018 10:45:00 01/05/2018 23:59:59 CLS Preadmit SREEKANTH WILKINS MOLD CHIPPER [facility] RAD CYST OF OVARY, UNSPECIFIED LATERALITY [id number] 12/17/2017 12:38:00 12/17/2017 16:32:00 DIS Emergency CASEY MANCIA MD [facility] ER ABD PAIN [id number] 10/26/2017 13:14:00 10/26/2017 23:59:59 CLS Outpatient SREEKANTH WILKINS MOLD CHIPPER [facility] RAD LUMP OF RT BREAST [id number] 03/30/2017 14:45:00 03/30/2017 17:12:00 DIS Emergency KAVON NOE MD [facility] ER SOA [id number] 11/12/2013 00:01:00 11/12/2013 02:34:00 DIS Emergency KAVON NOE MD [facility] ER BACK PAIN [id number] 09/26/2013 15:26:00 09/26/2013 19:55:00 DIS Emergency KALINA ADRIAN [facility] ER HEADACHE [id number] 07/17/2012 16:04:00 Document Registration [id number] 01/15/2012 05:56:00 Document Registration [id number] 10/06/2016 06:03:32 ACT Document Registration [id number] 10/10/2013 13:56:00 10/10/2013 23:59:59 CLS Outpatient TAWANA ONEILL MARLENE ELMOREH [id number] 09/27/2013 10:43:00 09/27/2013 23:59:59 CLS Outpatient JOSESITO LUKE APRN [id number] 05/25/2013 11:17:00 05/25/2013 23:59:59 CLS Outpatient MARIN DO, ALINA K [id number] 05/20/2013 10:35:00 05/20/2013 23:59:59 CLS Outpatient MAXIMINO KHANNA MD [id number] 05/11/2013 10:41:00 05/11/2013 23:59:59 CLS Outpatient JOSESITO LUKE APRN [id number] 03/03/2013 17:12:00 03/03/2013 23:59:59 CLS Outpatient BNO HORTON ONEAL F [id number] 10/26/2012 09:50:00 10/26/2012 23:59:59 CLS Outpatient JOSESITO LUKE APRN [id number] 10/20/2012 11:47:00 10/20/2012 23:59:59 CLS Outpatient [id number] 10/14/2012 09:46:00 10/14/2012 23:59:59 CLS Outpatient TANIA HORTON ALINA Avery [id number] 09/16/2012 10:21:00 09/16/2012 23:59:59 CLS Outpatient TANIA HORTON ALINA Avery [id number] 09/02/2012 11:15:00 09/02/2012 23:59:59 CLS Outpatient [id number] 08/14/2012 10:00:00 08/14/2012 23:59:59 CLS Outpatient ONEAL CROCKETT DO [id number] 07/08/2012 16:54:00 07/08/2012 23:59:59 CLS Outpatient BON ONEAL HORTON [id number] 07/06/2012 15:30:00 07/06/2012 23:59:59 CLS Outpatient [id number] 05/20/2012 13:51:00 05/20/2012 23:59:59 CLS Outpatient JOSESITO LUKE APRN [id number] 01/24/2013 13:14:00 Document Registration [id number] 11/23/2012 14:01:00 Document Registration [id number] 09/27/2016 11:59:00 09/27/2016 14:25:00 DIS Emergency SELENA PONCE [facility] FED [id number] 06/25/2016 12:18:00 06/25/2016 12:54:00 DIS Emergency [facility] FED [id number] 11/13/2014 04:26:00 11/13/2014 05:49:00 DIS Emergency FRANNY ISIDRO [facility] FED [id number] 11/07/2014 18:20:00 11/07/2014 22:19:00 DIS Emergency MARLENE LANZA [facility] FED [id number] 10/31/2014 15:51:00 10/31/2014 19:03:00 DIS Emergency JOHNNIETOM [facility] FED [id number] 03/31/2017 08:36:00 Document Registration [id number] 04/29/2017 14:11:00 Document Registration
[2018-04-18] MEDS ORDERED: KETOROLAC 60 MG/2 ML VIAL IM STA (16:32)
--- NOTE | 2018-04-18 16:59 | ED Lower Extremity ---
General Chief Complaint: Lower Extremity Stated Complaint: PAIN IN CALF Nursing Triage Note: PT TO ROOM 3 STATES HAS BILATERALLY HEEL PAIN AND BURNING FOR 3 WEEKS Nursing Sepsis Screen: No Definite Risk Source: patient Exam Limitations: no limitations History of Present Illness Date Seen by Provider: Apr 18, 2018 Time Seen by Provider: 16:16 Initial Comments Here with report of bilateral heel pain that has been going on for several weeks. She did see her provider about this on 03/26/18 and was diagnosed with plantar fasciitis. She states that she cannot get an appointment until July. In talking with her primary care provider's office, appointment appears to be mid-June with emergency communications officer but she does have appointment on 04/22 with her provider at the clinic. She is not currently on any prescribed medications. She worse flip flops. She seems to not understand her disease process well and there is some language barrier. Does have history of diabetes but states sugars have been okay. She takes one medication for that. She has been trying [id number] Tylenol and Advil and that has not helped. Denies injury otherwise. Onset: other (3 weeks) Severity: moderate Pain/Injury Location: bilateral heel Method of Injury: unknown Modifying Factors: Improves With Immobilization; Worse With Movement Allergies and Home Medications Allergies Coded Allergies: ciprofloxacin (Verified Allergy, Unknown, 03/10/18) ciprofloxacin HCl (Verified Allergy, Unknown, 03/10/18) olanzapine (Unverified Adverse Reaction, Mild, rash, 01/15/12) Home Medications Doxycycline Hyclate 100 Mg Tablet, 100 MG PO BID Prescribed by: KAVON MEYERS on 01/27/18 1715 Fluoxetine Hcl 20 Mg Capsule, 1 EACH PO DAILY, (Reported) Ibuprofen 600 Mg Tablet, 600 MG PO Q6H PRN for PAIN Prescribed by: KAVON MEYERS on 11/12/13 0152 Lamotrigine 25 Mg Tab, 25 MG PO DAILY, (Reported) Metformin Hcl 500 Mg Tab.sr.24h, 2 EACH PO BID WITH MEALS, (Reported) Ondansetron HCl 4 Mg Tab, 4 MG PO Q4H PRN for nausea and vomiting Prescribed by: PEYMAN SANDERS on 02/17/18 1523 Pantoprazole Sodium 20 Mg Tablet.dr, 20 MG PO DAILY Prescribed by: PEYMAN SANDERS on 02/17/18 1523 Polyethylene Glycol 17 Gm Pack, 17 GM PO DAILY PRN for CONSTIPATION 1-2 times daily FOR CONSTIPATION Prescribed by: KAVON MEYERS on 11/12/13 0152 Quetiapine Fumarate 25 Mg Tablet, 3 TAB PO HS, (Reported) Sulfamethoxazole/Trimethoprim 1 Each Tablet, 1 EACH PO BID Prescribed by: PEYMAN SANDERS on 02/17/18 1523 Patient Home Medication List Home Medication List Reviewed: Yes Review of Systems Constitutional: see HPI; No chills, No fever Respiratory: no symptoms reported Cardiovascular: no symptoms reported Musculoskeletal: see HPI, joint pain; No joint swelling Past Jsbwwuy-Ciqkba-Ywqvva Hx Past Med/Social Hx: Reviewed Nursing Past Med/Soc Hx Patient Social History Alcohol Use: Denies Use Recreational Drug Use: No Smoking Status: Never a Smoker 2nd Hand Smoke Exposure: No Recent Foreign Travel: No Contact w/Someone Who Travel: No Recent Infectious Disease Expo: No Recent Hopitalizations: No Physical Abuse: No Sexual Abuse: No Immunizations Up To Date Date of Influenza Vaccine: Jul 03, 2013 Past Medical History Surgeries: Yes Appendectomy, Tubal Ligation Respiratory: No Cardiac: No Neurological: No Reproductive Disorders: No (STATES MENSES EVERY MONTH , NONE IN SEP) Genitourinary: No Gastrointestinal: No Musculoskeletal: No Endocrine: No Diabetes, Non-Insulin dep HEENT: No Cancer: No Psychosocial: Yes Sleep Difficulties, Anxiety, Depression Integumentary: No Blood Disorders: No Family Medical History Reviewed Nursing Family Hx Physical Exam Vital Signs Vital Signs - First Documented 04/18/18 16:10 Temp 97.1 Pulse 64 Resp 18 B/P (MAP) 131/84 (100) Pulse Ox 99 Capillary Refill : Less Than 3 Seconds Height, Weight, BMI Height: 5'5.00" Weight: 157lbs. 0oz. 71.798876pw; BMI Method:Stated General Appearance: WD/WN, no apparent distress Cardiovascular: regular rate, rhythm, no murmur Respiratory: lungs clear, normal breath sounds Feet: bilateral foot soft tissue tenderness (bilateral pain at the heel at the insertion of the plantar fascia. No obvious injury or swelling.) 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: alert, oriented x 3 Skin: normal color, warm/dry Progress/Results/Core Measures Results/Orders Lab Results Laboratory Tests Test 04/18/18 16:27 Range/Units Glucometer 120 H 70-110 MG/DL My Orders Orders - CASEY MANCIA MD Accucheck Stat ONCE (04/18/18 16:27) Ketorolac Injection (Toradol Injection) (04/18/18 16:32) Vital Signs/I&O 04/18/18 16:10 Temp 97.1 Pulse 64 Resp 18 B/P (MAP) 131/84 (100) Pulse Ox 99 Blood Pressure Mean: 100 Progress Progress Note : Progress Note Seen and evaluated. I did discuss the case with Dr. Bhagat, on-call for [facility]. Patient has appointment on 04/22. She also has appointment with podiatry in mid June and Dr. Bhagat thinks that she will be able to get earlier appointment or another provider for possible injections. Dr. 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 We will give Toradol 60 mg IM now. Discharge instructions in Occitan for plantar fasciitis. Discharged home with return precautions. Patient verbalize understanding instructions and agreement with plan. She is instructed to not wear flip-flops and only wear tennis shoes and did not walk barefoot ever. Departure Impression Primary Impression: Plantar fasciitis Disposition: HOME, SELF-CARE Condition: Stable Departure-Patient Inst. Decision time for Depature: 17:02 Referrals: ALINA BHAGAT DO (PCP) Primary Care Physician JOSESITO LUKE (Family) Primary Care Physician Patient Instructions: Heel Pain (Caused by Plantar Fasciitis) (DC), Plantar Fasciitis Exercises Add. Discharge Instructions: All discharge instructions reviewed with patient and/or family. Voiced understanding. You may take Tylenol/acetaminophen 1000 mg every 6 hours as needed for pain. Do not take Advil as your new prescriptions is a similar type medicine. Pickup your new prescription in the morning at the clinic for your new pain medicine. Keep your appointment with your provider on 04/22/18 as previously scheduled. Return for worse pain, swelling, weakness or other concerns as needed. Copy Copies To 1: ALINA BHAGAT TIMOTHY D MD Apr 18, 2018 16:59
[2018-04-18 17:14] VITALS: BP 131/84
== END 2018-04-18 17:13 | disposition home or self-care (01) ==
LOC: EDUNIT# 15:20 → ER 15:22
DX: M72.2 Plantar fascial fibromatosis (principal); E11.9 Type 2 diabetes mellitus without complications; F41.9 Anxiety disorder, unspecified; F32.9 Major depressive disorder, single episode, unspecified; Z88.0 Allergy status to penicillin; Z88.8 Allergy status to other drugs, medicaments and biological substances; Z79.84 Long term (current) use of oral hypoglycemic drugs; Z90.89 Acquired absence of other organs; Z98.51 Tubal ligation status
CPT/HCPCS: 82962; 96372

== ENCOUNTER 2018-05-12 11:56 | Emergency (ER) | payer SELFPAY ==
[~2018-05-12] VITALS: Ht 152.4 cm; Wt 71.7 kg
--- OUTSIDE RECORDS SUMMARY | 2018-05-12 12:01 | XMS REPORT ---
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 Name Role Phone TANIA ALINA Unavailable PROBLEMS Type Condition ICD9-CM Code RPM32-PF Code Onset Dates Condition Status SNOMED Code Problem Generalized anxiety disorder F41.1 Active 16666295 Problem Bipolar disorder, current episode mixed, mild F31.61 Active 835031941 Problem Bipolar disorder in remission F31.70 Active 01850623 Problem Seasonal allergic rhinitis due to pollen J30.1 Active 32663287 Problem Primary insomnia F51.01 Active 7141292 Problem Overweight (BMI 25.0-29.9) E66.3 Active 565807364 Problem Sore throat J02.9 Active 276959497 Problem Elevated LDL cholesterol level E78.00 Active 870994686 Problem Personality disorder F60.9 Active [id number] ALLERGIES No Information ENCOUNTERS Encounter Location Date Diagnosis [facility] [id number] [place] [address] 91241- 8232 Jun, [facility] [id number] [place] [address] 59193- 5836 May, [facility] [id number] [place] [address] 82084- 2615 May, Bipolar disorder, current episode mixed, mild F31.61 [facility] [id number] [place] [address] 37175- 0659 20 Apr, 2018 Pre-diabetes R73.03 ; Elevated LDL cholesterol level E78.00 ; Plantar fasciitis, bilateral M72.2 ; Primary insomnia F51.01 ; Seasonal allergic rhinitis due to pollen J30.1 and Generalized anxiety disorder F41.1 [facility] [id number] [place] [address] 59837- 7515 Apr, [facility] [id number] [place] [address] 45871- 9870 Mar, [facility] [address] 87949- 6567 Mar, Plantar fascia syndrome M72.2 [facility] [address] 89107- 8775 Jan, UTI symptoms R39.9 and Epigastric pain R10.13 [facility] [address] 04894- 4279 Jan, Posterior right knee pain M25.561 [facility] [address] 13530- 0921 Jan, Posterior right knee pain M25.561 [facility] [address] 04867- 0347 Jan, Scabies B86 [facility] [address] 12004- 4619 Jan, Bipolar disorder, current episode mixed, mild F31.61 and Personality disorder F60.9 [facility] [address] 04559- 6653 Jan, Cyst of ovary, unspecified laterality N83.209 [facility] [id number] [place] [address] 13701- 8876 December, Cyst of ovary, unspecified laterality N83.209 [facility] [id number] [place] [address] 40898- 8312 December, [facility] [address] 70151- 1904 December, Dysuria R30.0 [facility] [id number] [place] [address] 71048- 1177 December, [facility] [address] 21872- 9632 Nov, Bipolar disorder, current episode mixed, mild F31.61 and Personality disorder F60.9 [facility] [id number] [place] [address] 71255- 0533 Nov, Elevated LDL cholesterol level E78.00 and Type 2 diabetes mellitus without complication, without long-term current use of insulin E11.9 [facility] [id number] [place] [address] 45582- 8965 Nov, Elevated LDL cholesterol level E78.00 and Type 2 diabetes mellitus without complication, without long-term current use of insulin E11.9 [facility] [address] 77094- 9686 Nov, Other chronic pain G89.29 and Pain in left leg M79.605 [facility] [address] 84041- 0009 Nov, Acute pain of left knee M25.562 ; Syncope, unspecified syncope type R55 and Hypoglycemia E16.2 [facility] [id number] [place] [address] 76214- 6252 Oct, Syncope, unspecified syncope type R55 [place] [facility] [address] 41560- 3098 Oct, Bipolar disorder, current episode mixed, mild F31.61 and Personality disorder F60.9 [facility] [id number] [place] [address] 86773- 8041 Oct, Lump of right breast N63.10 [facility] [id number] [place] [address] 78265- 6368 Oct, Generalized anxiety disorder F41.1 [facility] [address] 95726- 1654 Oct, Generalized anxiety disorder F41.1 ; Bipolar disorder in remission F31.70 ; Bipolar disorder, current episode mixed, mild F31.61 and Primary insomnia F51.01 [place] [address] 93563- 2750 20 Oct, 2017 Primary insomnia F51.01 and Lump of right breast N63.10 [facility] [address] 64415- 0858 16 Oct, 2017 Enteritis K52.9 [facility] [address] 81171 -8174 14 Oct, 2017 Allergic conjunctivitis of both eyes H10.13 and Acute non intractable tension-type headache G44.209 [facility] [address] 59691- 1926 14 Oct, 2017 [place] [address] 20760- 8477 Oct, Bipolar disorder, current episode mixed, mild F31.61 [facility] [address] 10502- 2482 22 Sep, 2017 Right flank pain R10.9 and Thoracic spine pain M54.6 [place] [address] 16370- 0021 16 Sep, 2017 Generalized anxiety disorder F41.1 and Bipolar disorder, current episode mixed, mild F31.61 [facility] [address] 55083- 7644 14 Sep, 2017 [place] [address] 32941- 2062 14 Sep, 2017 Generalized anxiety disorder F41.1 ; Bipolar disorder in remission F31.70 and Personality disorder F60.9 [facility] [address] 75783- 5792 12 Sep, 2017 Spasm of thoracic back muscle M62.830 ; Type 2 diabetes mellitus without complication, without long-term current use of insulin E11.9 and Generalized anxiety disorder F41.1 [facility] [id number] [place] [address] 55294- 5255 12 Sep, 2017 Bipolar disorder, current episode mixed, mild F31.61 and Personality disorder F60.9 [facility] [id number] [place] [address] 41938- 3714 Aug, [place] [address] [address] [id number]- 9407 Aug, Bipolar disorder, current episode mixed, mild F31.61 and Personality disorder F60.9 [facility] [address] 76727- 2076 Aug, Type 2 diabetes mellitus without complication, without long- term current use of insulin E11.9 ; Generalized anxiety disorder F41.1 ; Bipolar disorder in remission F31.70 and Overweight (BMI 25.0-29.9) E66.3 [facility] [id number] [place] [address] 15076- 2829 Aug, Type 2 diabetes mellitus without complication, without long- term current use of insulin E11.9 ; Elevated LDL cholesterol level E78.00 and Bipolar disorder, current episode mixed, mild F31.61 [facility] [id number] [place] [address] 46952 -6708 Jul, Vaginal discharge N89.8 ; Skin irritation R23.8 and Dysuria R30.0 [facility] [id number] [place] [address] 03504 -5358 Jul, Acute seasonal allergic rhinitis, unspecified trigger J30.2 and Chest pain, unspecified type R07.9 [facility] [id number] [place] [address] 88429- 3231 Jun, Bipolar disorder, current episode mixed, mild F31.61 [facility] [id number] [place] [address] 51992- 9974 Jun, [address] 59120- 2783 Jun, Bipolar disorder, current episode mixed, mild F31.61 and Personality disorder F60.9 [place] [id number] [place] [address]- 1127 Jun, [place] [address] 75918- 2357 Jun, Type 2 diabetes mellitus without complication, without long- term current use of insulin E11.9 and Dysuria R30.0 [place] [address] 28146- 7056 May, Bipolar disorder, current episode mixed, mild F31.61 ; Personality disorder F60.9 and Homeless Z59.0 [place] [address] 40922- 0422 May, Type 2 diabetes mellitus without complication, without long- term current use of insulin E11.9 [facility] [address] 06099- 0848 May, History of hypertension Z86.79 [place] [address] 38802- 7516 May, [place] [address] 70268- 9211 May, Type 2 diabetes mellitus without complication, without long- term current use of insulin E11.9 ; Elevated LDL cholesterol level E78.00 ; Low serum HDL R74.8 and Encounter for immunization Z23 [address] 74808- 6498 Apr, Encounter to establish care Z76.89 ; Abnormal CBC R79.89 ; History of hypertension Z86.79 ; Overweight (BMI 25.0-29.9) E66.3 ; Family history of diabetes insipidus Z83.49 ; Sore throat J02.9 and Tonsillitis with exudate J03.90 [place] [address] 86504- 5083 Apr, Bipolar disorder, current episode mixed, mild F31.61 [place] [address] 84639- 1241 Mar, [facility] [id number] [place] [address]- 8770 Mar, Bipolar disorder, current episode mixed, mild F31.61 [facility] [id number] [place] [address]- 5386 Mar, [facility] [address] [place] [address]- 4457 Mar, Bipolar disorder in remission F31.70 [facility] [address] [facility] [id number] [place] [address]- 3442 Jan, [facility] [address] [place] [address]- 7706 Jan, [facility] [id number] [address]- 1805 Oct, Generalized anxiety disorder F41.1 and Bipolar disorder in remission F31.70 [facility] [address] [place] [address]- 8142 Oct, [facility] [id number] [address]- 3865 Oct, [facility] [id number] [address]- 4348 Oct, [facility] [address] [address]- 6464 Oct, [facility] [address] [address]- 9617 Jul, [facility] [id number] 0976 Jun, [facility] [id number] 3282 May, 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 and Generalized anxiety disorder F41.1 [facility] [address] [address]- 5545 Jan, [facility] [address] [place] [address] 54104- 5938 Jan, [facility] [id number] [place] [address] 19926- 9636 Jan, 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 and Generalized anxiety disorder F41.1 [facility] [id number] [place] [address] 002966- 0169 Sep, [facility] [id number] [place] [address] 99090- 8430 Sep, [facility] [id number] [place] [address] 038094- 4730 Jul, 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 and Generalized anxiety disorder F41.1 [facility] [id number] [place] [address] 41294- 7761 Jul, Otalgia of right ear H92.01 [facility] [id number] [place] [address] 20353- 0701 Jun, [facility] [id number] [place] [address] 32780- 1331 Mar, [facility] [address] [place] [address] [id number]- 7336 Jan, [facility] [address] [place] [address] 13869- 7083 Jan, [facility] [id number] [place] [address] 688423- 1133 Jan, Bipolar 1 disorder, mixed, moderate 296.62 and SHERRY ( generalized anxiety disorder) 300.02 [facility] [address] [place] [address] 440227- 7595 Jan, [facility] [address]- 1160 Nov, [facility] [id number] [address]- 1973 Nov, [facility] [address] [id number] [place] [address]- 9709 Oct, [facility] [address] [id number] [place] [address]- 2708 Oct, [facility] [address] [id number] [place] [address]- 0567 Mar, [facility] [address] [id number] [place] [address]- 7741 Mar, [facility] [address] [id number] [place] [address]- 7671 Jan, [facility] [address] [id number] [place] [address]- 7178 Jan, [facility] [address] [id number] [place] [address]- 0451 December, [facility] [address] [id number] [place] [address]- 2505 December, [facility] [address] [id number] [place] [address]- 2818 December, [facility] [address] [id number] [place] [address]- 5387 December, [facility] [address] [id number] [place] [address]- 5817 December, [facility] [address] [id number] [place] [address]- 5782 December, [facility] [place] [facility] [address] [id number] [place] [address]- 7012 December, [facility] [place] [facility] [address] [id number] [place] [address]- 4284 December, [facility] [address] [id number] [place] [address]- 0066 Nov, [facility] [place] [facility] [address] [id number] [place] [address]- 1397 15 Nov, 2013 [facility] [place] [facility] [address] [id number] [place] [address]- 7957 10 Oct, 2013 [facility] [place] [facility] [address] [id number] [place] [address]- 5266 10 Oct, 2013 [facility] [place] [facility] [address] [id number] [place] [address]- 9032 Oct, [facility] [place] [facility] [address] [id number] [place] [address]- 7312 Oct, [facility] [place] [facility] [address] [id number] [place] [address]- 4833 Oct, [facility] [place] [facility] [address] [id number] [place] [address]- 3946 Sep, [facility] [place] [facility] [address] [id number] [place] [address]- 5461 Sep, [facility] [place] [facility] [address] [id number] [place] [address]- 8603 14 Sep, 2013 [facility] [place] [facility] [address] [id number] [place] [address]- 7373 14 Sep, 2013 [facility] [place] [facility] [address] [id number] [place] [address]- 2678 Aug, [facility] [place] [facility] [address] [id number] [place] [address]- 2415 Aug, [facility] [place] [facility] [address] [id number] [place] [address]- 8635 Aug, [facility] [place] [facility] [address] [id number] [place] [address]- 6345 14 Aug, 2013 [facility] [place] [facility] [address] [id number] [place] [address]- 6698 13 Aug, 2013 [facility] [place] [facility] [address] [id number] [place] [address]- 3440 16 Jul, 2013 [facility] [place] [facility] [address] [id number] [place] [address]- 5753 16 Jul, 2013 [facility] [place] [facility] [address] [id number] [place] [address]- 2132 Jul, [facility] [place] [facility] [address] [id number] [place] [address]- 6347 Jul, [facility] [place] [facility] [address] [id number] [place] [address]- 7411 Jun, [facility] [place] [facility] [address] [id number] [place] [address]- 8395 Jun, [facility] [place] [facility] [address] [id number] [place] [address]- 7388 May, [facility] [place] [facility] [address] [id number] [place] [address]- 1408 May, [facility] [place] [facility] [address] [id number] [place] [address]- 8316 May, [facility] [place] [facility] [address] [id number] [place] [address]- 7626 18 May, 2013 [facility] [place] [facility] [address] [facility] [id number] [place] [address]- 6654 May, [facility] [place] [facility] [address] [id number] [place] [address]- 4193 15 May, 2013 [facility] [place] [facility] [address] [id number], [place] [address]- 5552 09 May, 2013 [facility] [place] [facility] [address] [id number] [place] [address]- 2245 07 May, 2013 [facility] [place] [facility] [address] [facility] [id number] [place] [address]- 1438 May, [facility] [place] [facility] [address] [facility] [id number], [place] [address]- 2109 Apr, [facility] [place] [facility] [address] [id number] [place] [address]- 4444 Apr, [facility] [place] [facility] [address] [id number] [place] [address]- 6984 Mar, [facility] [place] [facility] [address] [id number] [place] [address]- 5012 Mar, [facility] [place] [facility] [address] [id number] [place] [address]- 2288 Mar, [facility] [place] [facility] [address] [id number] [place] [address]- 3354 Mar, [facility] [place] [facility] [address] [id number] [place] [address]- 0473 Mar, [facility] [place] [facility] [address] [id number] [place] [address]- 0589 Mar, [facility] [place] [facility] [address] [id number] [place] [address]- 7478 Mar, [facility] [place] [facility] [address] [id number] [place] [address]- 7068 Mar, [facility] [place] [facility] [address] [id number] [place] [address]- 7361 Mar[facility] [place] [facility] [address] [id number] [place] [address]- 8621 Mar, [facility] [place] [facility] [address] [id number] [place] [address]- 6890 Mar, [facility] [place] [facility] [address] [id number] [place] [address]- 0581 Jan, [facility] [place] [facility] [address] [id number] [place] [address]- 9663 Jan, [facility] [place] [facility] [address] [id number] [place] [address]- 2146 Jan, [facility] [place] [facility] [address] [id number] [place] [address]- 8668 December, [facility] [address] [id number] [place] [address]- 3029 December, [facility] [address] [id number] [place] [address]- 6806 Nov, [facility] [address] [id number] [place] [address]- 2423 Nov, [facility] [address] [id number] [place] [address]- 4299 Oct, [facility] [address] [id number] [place] [address]- 3125 26 Oct, 2012 [facility] [address] [id number] [place] [address]- 9571 21 Oct, 2012 [facility] [address] [id number] [place] [address]- 0024 20 Oct, 2012 [facility] [place] [facility] [address] [id number] [place] [address]- 8740 19 Oct, 2012 [facility] [address] [id number] [place] [address]- 8235 19 Oct, 2012 [facility] [place] [facility] [address] [id number] [place] [address]- 3738 17 Oct, 2012 [facility] [place] [facility] [address] [id number] [place] [address]- 9609 16 Oct, 2012 [facility] [place] [facility] [address] [id number], [place] [address]- 1253 14 Oct, 2012 [facility] [place] [facility] [address] [id number] [place] [address]- 3151 13 Oct, 2012 [facility] [place] [facility] [address] [id number] [place] [address]- 6054 05 Oct, 2012 [facility] [place] [facility] [address] [id number] [place] [address]- 9244 14 Sep, 2012 [facility] [place] [facility] [address] [id number] [place] [address]- 1396 08 Sep, 2012 [facility] [address] [id number] [place] [address]- 8656 Aug, [facility] [address] [id number] [place] [address]- 2546 Aug, [facility] [address] [id number] [place] [address]- 7556 Aug, [facility] [address] [id number] [place] [address]- 6016 Aug, [facility] [address] [id number] [place] [address] Aug, [facility] [address] [id number] [place] [address] Jul, [facility] [address] [id number] [place] [address] Jul, [facility] [address] [id number] [place] [address] Jul, [facility] [address] [id number] [place] [address] Jul, [facility] [address] [id number] [place] [address] 18 Jul, 2012 [facility] [address] [id number] [place] [address] 17 Jul, 2012 [facility] [address] [id number] [place] [address] 14 Jul, 2012 [facility] [address] [id number] [place] [address] 14 Jul, 2012 [facility] [address] [id number] [place] [address] 06 Jul, 2012 [facility] [address] [id number] [place] [address] Jul, [facility] [place] [facility] [address] [id number] [place] [address] Jul, [facility] [place] [facility] [address] [id number] [place] [address] Jul, [facility] [place] [facility] [address] [id number] [place] [address] Jul, [facility] [place] [facility] [address] [id number] [place] [address] Jul, [facility] [place] [facility] [address] [id number] [place] [address] Jul, [facility] [place] [facility] [address] [id number] [place] [address] Jul, [facility] [place] [facility] [address] [id number] [place] [address] Jun, [facility] [place] [facility] [address] [id number], [place] [address] Jun, [facility] [place] [facility] [address] [id number] [place] [address] Jun, [facility] [place] [facility] [address] [id number], [place] [address] Jun, [facility] [place] [facility] [address] [id number], [place] [address] Jun, [facility] [place] [facility] [address] [id number], [place] [address] Jun, [facility] [place] [facility] [address] [id number], [place] [address] Jun, [facility] [place] [facility] [address] [id number], [place] [address] Jun, [facility] [place] [facility] [address] [id number], [place] [address] 13 Jun, 2012 [facility] [place] [facility] [address] [id number], [place] [address] May, [facility] [place] [facility] [address] [id number] [place] [address] Mar, [facility] [place] [facility] [address] [id number] [place] [address] Mar, [facility] [place] [facility] [address] [id number] [place] [address] Mar, [facility] [place] [facility] [address] [id number] [place] [address] Mar, [facility] [place] [facility] [address] [id number] [place] [address] Jan, [facility] [place] [facility] [address] [id number] [place] [address] Jan, [facility] [place] [facility] [id number] [place] [address] Jan, [facility] [place] [facility] [address] [id number] [place] [address] Jan, [facility] [place] [facility] [address] [id number] [address] Jan, [facility] [place] [facility] [address] [id number] [address] Jan, [facility] [place] [facility] [address] [id number] [place] [address] December, [facility] [place] [facility] [address] [id number] [place] [address] December, [facility] [place] [facility] [address] [id number] [place] [address] Nov, [facility] [place] [facility] [address] [id number] [place] [address] Nov, [facility] [place] [facility] [address] [facility] [id number] [place] [address] Oct, [facility] [place] [facility] [address] [id number] [place] [address] Oct, [facility] [place] [facility] [address] [id number] [place] [address] Oct, [facility] [place] [facility] [address] [id number] [place] [address] Oct, [facility] [place] [facility] [address] [id number] [place] [address] Aug, [facility] [place] [facility] [address] [id number] [place] [address] Aug, [facility] [place] [facility] [address] [id number] [place] [address] Jun, [facility] [place] [facility] [address] [id number] [place] [address] Jun, [facility] [place] [facility] [address] [id number] [place] [address] Jun, [facility] [place] [facility] [address] [id number] [place] [address] Jun, [facility] [place] [facility] [address] [id number] [place] [address] Jun, [facility] [place] [facility] [address] [id number] [place] [address] May, [facility] [place] [facility] [address] [id number] [place] [address] May, [facility] [place] [facility] [address] [id number] [place] [address] May, [facility] [place] [facility] [address] [id number] [place] [address] May, [facility] [place] [facility] [address] [id number] [place] [address] May, [facility] [place] [facility] [address] [id number] [place] [address] May, [facility] [id number] [address] 14 May, 2011 [facility] [id number], [place] [address] Mar, [facility] [id number] [address] May, [facility] [id number] [place] [address] Jan, [facility] [id number] [place] [address] Jul, [facility] [id number] [place] [address]- [address] Jun, [facility] [id number] [place] [address]- [address] Jun, [facility] [id number] [place] [address]- [address] Jun, [facility] [id number], [place] [address] Jun, [facility] [id number], [place] [address] Jun, [facility] [id number], [place] [address] May, [facility] [id number] [address] May, [facility] [id number] [place] [address] May, [facility] [id number], [place] [address] Jul, IMMUNIZATIONS No Known Immunizations SOCIAL HISTORY Never Assessed REASON FOR VISIT ER visit PLAN OF CARE VITAL SIGNS MEDICATIONS Medication Instructions Dosage Frequency Start Date End Date Duration Status Meloxicam 15 mg Orally Once a day 1 tablet 24h 16 Apr, 2018 30 day(s) Active RESULTS No Results PROCEDURES No Known [...]
--- OUTSIDE RECORDS SUMMARY | 2018-05-12 12:02 | XMS REPORT ---
Author Author CITLALY SKINNER Organization [facility] Address [address] [place] [address] Care Team Providers Care Master [place] Name Role Phone CITLALY SKINNER Unavailable PROBLEMS Type Condition ICD9-CM Code [id number] Code Onset Dates Condition Status SNOMED Code Problem Generalized anxiety disorder F41.1 Active 41343002 Problem Bipolar disorder, current episode mixed, mild F31.61 Active 899457468 Problem Bipolar disorder in remission F31.70 Active 52806974 Problem Seasonal allergic rhinitis due to pollen J30.1 Active 39971333 Problem Primary insomnia F51.01 Active 8205832 Problem Overweight (BMI 25.0-29.9) E66.3 Active 022073982 Problem Sore throat J02.9 Active 251547333 Problem Elevated LDL cholesterol level E78.00 Active 651895240 Problem Personality disorder F60.9 Active 75052613 ALLERGIES No Information ENCOUNTERS Encounter Location Date Diagnosis [place] [address] [address]- [address] Jun, [place] [address] [place] [id number] [place] [address] 64273- 7875 Apr, Pre-diabetes R73.03 ; Elevated LDL cholesterol level E78.00 ; Plantar fasciitis, bilateral M72.2 ; Primary insomnia F51.01 ; Seasonal allergic rhinitis due to pollen J30.1 and Generalized anxiety disorder F41.1 [place] [address] [place] [id number] [place] [address] 01362- 2628 Apr, [place] [address] 98906- 9207 Mar, [place] [address] [place] [id number] [place] [address] 20822- 7028 Mar, Plantar fascia syndrome M72.2 [place] [address] [place] [id number] [place] [address] 11738- 0583 Jan, UTI symptoms R39.9 and Epigastric pain R10.13 [place] [address] [place] [id number] [place] [address] 32398- 5484 Jan, Posterior right knee pain M25.561 [place] [address] [place] [id number] [place] [address] 76146- 6354 Jan, Posterior right knee pain M25.561 [place] [address] [place] [id number] [place] [address] 30931- 6860 Jan, Scabies B86 [place] [address] 32104- 1592 Jan, Bipolar disorder, current episode mixed, mild F31.61 and Personality disorder F60.9 [place] [address] [place] [id number] [place] [address] 53726- 3521 Jan, Cyst of ovary, unspecified laterality N83.209 [place] [address] [place] [id number] [place] [address] 73703- 7232 December, Cyst of ovary, unspecified laterality N83.209 [place] [address] [place] [id number] [place] [address] 50682- 6307 December, [place] [address] [place] [id number] [place] [address] 13142- 9411 December, Dysuria R30.0 [place] [address] [place] [id number] [place] [address] 85075- 5595 December, [place] [address] [place] [id number] [place] [address] 67754- 2542 Nov, Bipolar disorder, current episode mixed, mild F31.61 and Personality disorder F60.9 [place] [address] [place] [id number] [place] [address] 97583- 1291 Nov, Elevated LDL cholesterol level E78.00 and Type 2 diabetes mellitus without complication, without long-term current use of insulin E11.9 [place] [address] [place] [address] 44043- 1405 Nov, Elevated LDL cholesterol level E78.00 and Type 2 diabetes mellitus without complication, without long-term current use of insulin E11.9 [place] [address] [place] [address] 12890- 5818 04 Nov, 2017 Other chronic pain G89.29 and Pain in left leg M79.605 [place] [address] [place] [id number] [place] [address] 66001- 6744 02 Nov, 2017 Acute pain of left knee M25.562 ; Syncope, unspecified syncope type R55 and Hypoglycemia E16.2 [place] [address] [place] [id number] [place] [address] 26011- 4299 Oct, Syncope, unspecified syncope type R55 [place] [address] 14997- 7601 Oct, Bipolar disorder, current episode mixed, mild F31.61 and Personality disorder F60.9 [place] [address] [place] [id number] [place] [address] 37438- 9946 Oct, Lump of right breast N63.10 [place] [address] [place] [id number] [place] [address] 11068- 9499 Oct, Generalized anxiety disorder F41.1 [place] [address] [place] [id number] [place] [address] 80260- 2630 Oct, Generalized anxiety disorder F41.1 ; Bipolar disorder in remission F31.70 ; Bipolar disorder, current episode mixed, mild F31.61 and Primary insomnia F51.01 [place] [address] [place] [id number] [place] [address] 88295- 8359 Oct, Primary insomnia F51.01 and Lump of right breast N63.10 [place] [address] [place] [id number] [place] [address] 18670- 2967 16 Oct, 2017 Enteritis K52.9 [facility] [address] [place] [address] 26053 -4057 14 Oct, 2017 Allergic conjunctivitis of both eyes H10.13 and Acute non intractable tension-type headache G44.209 [facility] [address] [place] [id number] [place] [address] 49093- 1083 14 Oct, 2017 [facility] [address] [place] [id number] [place] [address] 37787- 1550 Oct, Bipolar disorder, current episode mixed, mild F31.61 [place] [address] 87935- 9486 22 Sep, 2017 Right flank pain R10.9 and Thoracic spine pain M54.6 [place] [address] [place] [id number] [place] [address] 01229- 6623 16 Sep, 2017 Generalized anxiety disorder F41.1 and Bipolar disorder, current episode mixed, mild F31.61 [place] [address] [place] [id number] [place] [address] 69102- 0511 14 Sep, 2017 [place] [address] [place] [id number] [place] [address] 97259- 6057 14 Sep, 2017 Generalized anxiety disorder F41.1 ; Bipolar disorder in remission F31.70 and Personality disorder F60.9 [place] [address] [place] [id number] [place] [address] 29904- 6967 12 Sep, 2017 Spasm of thoracic back muscle M62.830 ; Type 2 diabetes mellitus without complication, without long-term current use of insulin E11.9 and Generalized anxiety disorder F41.1 [place] [address] [place] [id number] [place] [address] 04766- 5757 12 Sep, 2017 Bipolar disorder, current episode mixed, mild F31.61 and Personality disorder F60.9 [facility] [address] [place] [id number] [place] [address] 03364- 9501 Aug, [place] [address] 69915- 9063 Aug, Bipolar disorder, current episode mixed, mild F31.61 and Personality disorder F60.9 [place] [address] 69480- 2453 Aug, Type 2 diabetes mellitus without complication, without long- term current use of insulin E11.9 ; Generalized anxiety disorder F41.1 ; Bipolar disorder in remission F31.70 and Overweight (BMI 25.0-29.9) E66.3 [place] [address] [place] [id number]- 4490 Aug, Type 2 diabetes mellitus without complication, without long- term current use of insulin E11.9 ; Elevated LDL cholesterol level E78.00 and Bipolar disorder, current episode mixed, mild F31.61 [facility] [address] 16413 -7841 Jul, Vaginal discharge N89.8 ; Skin irritation R23.8 and Dysuria R30.0 [facility] [address] 97951 -9224 Jul, Acute seasonal allergic rhinitis, unspecified trigger J30.2 and Chest pain, unspecified type R07.9 [place] [address] 23275- 6046 Jun, Bipolar disorder, current episode mixed, mild F31.61 [place] [address] 28931- 1455 Jun, [place] [address] 50957- 9118 Jun, Bipolar disorder, current episode mixed, mild F31.61 and Personality disorder F60.9 [place] [address] 81892- 6429 Jun, [address] 79744- 8882 Jun, Type 2 diabetes mellitus without complication, without long- term current use of insulin E11.9 and Dysuria R30.0 [place] [id number] [place] [address] 46637- 3843 May, Bipolar disorder, current episode mixed, mild F31.61 ; Personality disorder F60.9 and Homeless Z59.[address] 84195- 5790 May, Type 2 diabetes mellitus without complication, without long- term current use of insulin E11.9 [place] [address] 83182- 2162 May, History of hypertension Z86.79 [place] [address]- [address]681 May, [address] 51851- 9144 May, Type 2 diabetes mellitus without complication, without long- term current use of insulin E11.9 ; Elevated LDL cholesterol level E78.00 ; Low serum HDL R74.8 and Encounter for immunization Z23 [address] 81300- 6473 Apr, Encounter to establish care Z76.89 ; Abnormal CBC R79.89 ; History of hypertension Z86.79 ; Overweight (BMI 25.0-29.9) E66.3 ; Family history of diabetes insipidus Z83.49 ; Sore throat J02.9 and Tonsillitis with exudate J03.90 [place] [id number] [place] [address] 92728- 9831 Apr, Bipolar disorder, current episode mixed, mild F31.[address] 65740- 0691 Mar, [address] 57308- 0022 Mar, Bipolar disorder, current episode mixed, mild F31.[address] 72675- 7221 Mar, [facility] [id number] [place] [address]- 9509 Mar, Bipolar disorder in remission F31.70 [facility] [id number] [place] [address] 2546 Jan, [facility] [id number] [place] [address]- 3626 Jan, [facility] [address] [address]- 9440 Oct, Generalized anxiety disorder F41.1 and Bipolar disorder in remission F31.70 [facility] [id number] [place] [address]- 1526 Oct, [facility] [id number] [place] [address]- 2084 Oct, [facility] [address] [address]- 9476 Oct, [facility] [id number] [place] [address]- 9428 Oct, [facility] [address] [address]- 6756 Jul, [facility] [address] [address] 2546 Jun, [facility] [address] [address]- 6776 May, 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 and Generalized anxiety disorder F41.1 [facility] [address] [address]- 3326 Jan, [facility] [address] [place] [id number] [address]- 5616 Jan, [facility] [address] [place] [id number] [address]- 1996 Jan, 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 and Generalized anxiety disorder F41.1 [facility] [address] [place] [id number] [place] [address] 79585- 6166 Sep, [facility] [address] [place] [id number] [place] [address] 96734- 6446 Sep, [facility] [address] [place] [id number] [place] [address] 38045- 2526 Jul, 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 and Generalized anxiety disorder F41.1 [facility] [address] [place] [id number] [place] [address] 78525- 6381 Jul, Otalgia of right ear H92.01 [facility] [address] [place] [id number] [place] [address] 72634- 8148 Jun, [facility] [address] [place] [id number] [place] [address] 54174- 2097 Mar, [facility] [address] [place] [id number] [place] [address] 95928- 2973 Jan, [facility] [address] [place] [id number] [place] [address] 75437- 6675 Jan, [facility] [address] [place] [id number] [place] [address] 74430- 2641 Jan, Bipolar 1 disorder, mixed, moderate 296.62 and SHERRY ( generalized anxiety disorder) 300.02 [facility] [address] [place] [id number] [place] [address] 03368- 6956 Jan, [facility] [address] [place] [id number] [place] [address] 79757- 5419 Nov, [facility] [address] [place] [id number] [place] [address] 97303- 0669 Nov, [facility] [address] [place] [id number] [place] [address] 10280- 2587 06 Oct, 2014 [facility] [address] [place] [id number] [place] [address] 72052- 7196 Oct, [facility] [place] [facility] [address] [id number] [place] [address]- 0674 Mar, [facility] [place] [facility] [address] [id number] [place] [address]- 5242 Mar, [facility] [place] [facility] [address] [id number] [place] [address]- 6260 Jan, [facility] [place] [facility] [address] [id number] [place] [address]- 8663 Jan, [facility] [place] [facility] [address] [id number] [place] [address]- 0376 December, [facility] [place] [facility] [address] [id number] [place] [address]- 1376 December, [facility] [place] [facility] [address] [id number] [place] [address]- 0309 December, [facility] [place] [facility] [address] [id number] [place] [address]- 4654 December, [facility] [place] [facility] [address] [id number] [place] [address]- 3917 December, [facility] [place] [facility] [address] [id number] [place] [address]- 0188 December, [facility] [place] [facility] [address] [id number] [place] [address]- 9696 December, [facility] [place] [facility] [address] [id number] [place] [address]- 0626 December, [facility] [place] [facility] [address] [id number] [place] [address]- 4015 Nov, [facility] [place] [facility] [address] [id number] [place] [address]- 1153 Nov, [facility] [place] [facility] [address] [id number] [place] [address]- 7399 Oct, [facility] [place] [facility] [address] [id number] [place] [address]- 9393 10 Oct, 2013 [facility] [place] [facility] [address] [id number] [place] [address]- 7583 10 Oct, 2013 [facility] [place] [facility] [address] [id number] [place] [address]- 7326 10 Oct, 2013 [facility] [place] [facility] [address] [id number] [place] [address]- 3840 Oct, [facility] [place] [facility] [address] [id number] [place] [address]- 8770 Sep, [facility] [place] [facility] [address] [id number] [place] [address]- 8975 Sep, [facility] [place] [facility] [address] [id number] [place] [address]- 3053 Sep, [facility] [place] [facility] [address] [id number] [place] [address]- 0458 Sep, [facility] [place] [facility] [address] [id number] [place] [address]- 1012 Aug, [facility] [place] [facility] [address] [id number] [place] [address]- 6651 Aug, [facility] [place] [facility] [address] [id number] [place] [address]- 5151 14 Aug, 2013 [facility] [place] [facility] [address] [id number] [place] [address]- 1375 14 Aug, 2013 [facility] [place] [facility] [address] [id number] [place] [address]- 0800 13 Aug, 2013 [facility] [place] [facility] [address] [id number] [place] [address]- 7626 16 Jul, 2013 [facility] [place] [facility] [address] [id number] [place] [address]- 6206 16 Jul, 2013 [facility] [place] [facility] [address] [id number] [place] [address]- 7061 Jul, [facility] [place] [facility] [address] [id number] [place] [address]- 8766 Jul, [facility] [place] [facility] [address] [id number] [place] [address]- 9534 Jun, [facility] [place] [facility] [address] [id number] [place] [address]- 9932 Jun, [facility] [place] [facility] [address] [id number] [place] [address]- 4121 May, [facility] [place] [facility] [address] [id number] [place]- 9989 May, [facility] [place] [facility] [address] [id number] [place] [address]- 5137 May, [facility] [place] [facility] [address] [id number] [place] [address]- 2719 May, [facility] [place] [facility] [address] [id number], [place] [address]- 0613 May, [facility] [place] [facility] [address] [id number] [place] [address]- 5608 May, [facility] [place] [facility] [address] [id number], [place] [address]- 4865 May, [facility] [place] [facility] [address] [id number], [place] [address]- 6048 May, [facility] [place] [facility] [address] [id number], [place] [address]- 2658 May, [facility] [place] [facility] [address] [id number] [place] [address]- 2964 Apr, [facility] [place] [facility] [address] [id number], [place] [address]- 1812 Apr, [facility] [place] [facility] [address] [id number] [place] [address] 2548 Mar, [facility] [place] [facility] [address] [id number] [place] [address]- 1840 Mar, [facility] [address] [id number] [place] [address]- 0960 Mar, [facility] [place] [facility] [address] [id number] [place] [address]- 8247 Mar, [facility] [place] [facility] [address] [id number] [place] [address]- 9100 Mar, [facility] [place] [facility] [address] [id number] [place] [address]- 5749 Mar, [facility] [place] [facility] [address] [id number] [place] [address]- 1621 Mar, [facility] [place] [facility] [address] [id number] [place] [address]- 8765 Mar, [facility] [address] [id number] [place] [address]- 9958 Mar, [facility] [place] [facility] [address] [id number] [place] [address]- 3257 Mar, [facility] [place] [facility] [address] [id number] [place] [address]- 9422 Mar, [facility] [place] [facility] [address] [id number] [place] [address]- 2958 Jan, [facility] [place] [facility] [address] [id number] [place] [address]- 3284 Jan, [facility] [place] [facility] [address] [id number] [place] [address]- 1426 Jan, [facility] [place] [facility] [address] [id number] [place] [address]- 4619 December, [facility] [place] [facility] [address] [id number] [place] [address]- 9584 December, [facility] [place] [facility] [address] [id number] [place] [address]- 4889 Nov, [facility] [place] [facility] [address] [id number] [place] [address]- 4635 Nov, [facility] [address] [id number] [place] [address]- 9281 28 Oct, 2012 [facility] [address] [id number] [place] [address]- 1381 26 Oct, 2012 [facility] [address] [id number] [place] [address]- 3040 21 Oct, 2012 [facility] [address] [id number] [place] [address]- 7198 20 Oct, 2012 [facility] [address] [id number] [place] [address]- 0357 19 Oct, 2012 [facility] [address] [id number] [place] [address]- 6402 19 Oct, 2012 [facility] [address] [id number] [place] [address]- 7169 17 Oct, 2012 [facility] [address] [id number] [place] [address]- 1874 16 Oct, 2012 [facility] [address] [id number] [place] [address]- 3139 14 Oct, 2012 [facility] [address] [id number] [place] [address]- 4878 13 Oct, 2012 [facility] [address] [id number] [place] [address]- 8461 05 Oct, 2012 [facility] [address] [id number] [place] [address]- 8846 14 Sep, 2012 [facility] [place] [facility] [address] [id number] [place] [address]- 9094 08 Sep, 2012 [facility] [place] [facility] [address] [id number] [place] [address] 21 Aug, 2012 [facility] [address] [id number] [place] [address] 16 Aug, 2012 [facility] [address] [id number] [place] [address] Aug, [facility] [place] [facility] [address] [id number] [place] [address] 09 Aug, 2012 [facility] [address] [id number] [place] [address] Aug, [facility] [place] [facility] [address] [id number] [place] [address] Jul, [facility] [address] [id number] [place] [address] Jul, [facility] [place] [facility] [address] [id number] [place] [address] Jul, [facility] [address] [id number] [place] [address] Jul, [facility] [place] [facility] [address] [id number] [place] [address] 18 Jul, 2012 [facility] [address] [id number] [place] [address] 17 Jul, 2012 [facility] [place] [facility] [address] [id number] [place] [address] 47[address] 14 Jul, 2012 [facility] [place] [facility] [address] [id number] [place] [address] 14 Jul, 2012 [facility] [place] [facility] [address] [id number] [place] [address] 164[address] 06 Jul, 2012 [facility] [place] [facility] [address] [id number] [place] [address] 06 Jul, 2012 [facility] [place] [facility] [address] [id number] [place] [address] 05 Jul, 2012 [facility] [place] [facility] [address] [id number] [place] [address] 05 Jul, 2012 [facility] [place] [facility] [address] [id number] [place] [address] Jul, [facility] [place] [facility] [address] [id number] [place] [address] Jul, [facility] [place] [facility] [address] [id number] [place] [address] Jul, [facility] [address] [id number] [place] [address] Jul, [facility] [place] [facility] [address] [id number] [place] [address] Jun, [facility] [place] [facility] [address] [id number] [place] [address] Jun, [facility] [place] [facility] [address] [id number] [place] [address] Jun, [facility] [place] [facility] [address] [id number] [place] [address] Jun, [facility] [address] [id number] [place] [address] Jun, [facility] [place] [facility] [address] [id number] [place] [address] Jun, [facility] [place] [facility] [address] [id number] [place] [address] Jun, [facility] [place] [facility] [address] [id number] [place] [address] Jun, [facility] [place] [facility] [address] [id number] [place] [address] Jun, [facility] [place] [facility] [address] [id number] [place] [address] May, [facility] [place] [facility] [address] [id number] [place] [address] Mar, [facility] [place] [facility] [address] [id number] [place] [address] Mar, [facility] [place] [facility] [address] [id number] [place] [address] Mar, [facility] [place] [facility] [address] [id number] [place] [address] Mar, [facility] [place] [facility] [address] [id number] [place] [address] Jan, [facility] [place] [facility] [address] [id number] [place] [address] Jan, [facility] [place] [facility] [address] [id number] [place] [address] Jan, [facility] [place] [facility] [address] [id number] [place] [address] Jan, [facility] [place] [facility] [address] [id number] [place] [address] Jan, [facility] [place] [facility] [address] [id number] [place] [address] Jan, [facility] [place] [facility] [address] [id number] [place] [address] December, [facility] [place] [facility] [address] [id number] [place] [address] December, [facility] [place] [facility] [address] [id number] [place] [address] Nov, [facility] [place] [facility] [address] [id number] [place] [address] Nov, [facility] [place] [facility] [address] [id number] [place] [address] Oct, [facility] [place] [facility] [address] [id number] [place] [address] Oct, [facility] [place] [facility] [address] [id number] [place] [address] Oct, [facility] [place] [facility] [address] [id number] [place] [address] Oct, [facility] [place] [facility] [address] [id number] [place] [address] Aug, [facility] [place] [facility] [address] [id number] [place] [address] Aug, [facility] [place] [facility] [address] [id number] [place] [address] Jun, [facility] [place] [facility] [address] [id number] [place] [address] Jun, [facility] [place] [facility] [address] [id number] [place] [address] Jun, [facility] [place] [facility] [address] [id number] [place] [address] Jun, [facility] [place] [facility] [address] [id number] [place] [address] Jun, [facility] [place] [facility] [address] [id number] [place] [address] May, [facility] [place] [facility] [address] [id number] [place] [address] May, [facility] [place] [facility] [address] [id number] [place] [address] May, [facility] [place] [facility] [address] [id number] [place] [address] May, [facility] [place] [facility] [address] [id number] [place] [address]- [address] May, [facility] [place] [facility] [address] [id number] [place] [address] May, [facility] [place] [facility] [address] [id number] [place] [address]- [address] May, [facility] [place] [facility] [address] [id number] [place] [address] Mar, [facility] [place] [facility] [address] [facility] [id number] [address] May, [facility] [address] [facility] [id number], [place] [address] Jan, [facility] [address] [facility] [id number], [place] [address] Jul, [facility] [address] [facility] [id number][place] [address] [address] Jun, [facility] [address] [facility] [id number], [place] [address] Jun, [facility] [id number], [place] [address] Jun, [facility] [id number], [place] [address] Jun, [facility] [id number], [place] [address] Jun, [facility] [id number], [place] [address] May, [facility] [id number], [place] [address] May, [facility] [id number], [place] [address] May, [facility] [id number], [place] [address] Jul, IMMUNIZATIONS No Known Immunizations SOCIAL HISTORY Never Assessed REASON FOR VISIT Ultrasound PLAN OF CARE VITAL SIGNS MEDICATIONS Unknown [...]
--- OUTSIDE RECORDS SUMMARY | 2018-05-12 12:03 | XMS REPORT ---
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 Name Role Phone SREEKANTH WILKINS Unavailable PROBLEMS Type Condition ICD9-CM Code IPH71-UO Code Onset Dates Condition Status SNOMED Code Problem Generalized anxiety disorder F41.1 Active 90470282 Problem Bipolar disorder, current episode mixed, mild F31.61 Active 033700719 Problem Bipolar disorder in remission F31.70 Active 47047626 Problem Seasonal allergic rhinitis due to pollen J30.1 Active 35917283 Problem Primary insomnia F51.01 Active 8655093 Problem Overweight (BMI 25.0-29.9) E66.3 Active 860654097 Problem Sore throat J02.9 Active 105229006 Problem Elevated LDL cholesterol level E78.00 Active 313741572 Problem Personality disorder F60.9 Active 10921590 ALLERGIES Substance Reaction Event Type Date Status MetFORMIN HCl ER nausea Drug Allergy Mar, Active Zyprexa rash Drug Allergy Mar, Active Cipro rash Drug Allergy Mar, Active ENCOUNTERS Encounter Location Date Diagnosis [place] [id number] [place] [address] 32901- 2704 Jun, [facility] [id number] [place] [address] 79261- 9548 Apr, Pre-diabetes R73.03 ; Elevated LDL cholesterol level E78.00 ; Plantar fasciitis, bilateral M72.2 ; Primary insomnia F51.01 ; Seasonal allergic rhinitis due to pollen J30.1 and Generalized anxiety disorder F41.1 [facility] [place] [id number] [place] [address] 50124- 2398 Apr, [facility] [place] [id number] [place] [address] 20438- 9250 Mar, [place] [id number] [place] [address] 52016- 7584 Mar, Plantar fascia syndrome M72.2 [place] [address] 94313- 0874 Jan, UTI symptoms R39.9 and Epigastric pain R10.13 [place] [id number] [place] [address] 83850- 5749 Jan, Posterior right knee pain M25.561 [place] [id number] [place] [address] 73665- 6462 Jan, Posterior right knee pain M25.561 [place] [address] 74070- 7025 Jan, Scabies B86 [place] [address] 21442- 6349 Jan, Bipolar disorder, current episode mixed, mild F31.61 and Personality disorder F60.9 [place] [id number] [place] [address] 97228- 6750 Jan, Cyst of ovary, unspecified laterality N83.209 [place] [id number] [place] [address] 81537- 6204 December, Cyst of ovary, unspecified laterality N83.209 [place] [id number] [place] [address] 63157- 4162 December, [place] [id number] [place] [address] 03398- 9749 December, Dysuria R30.0 [place] [id number] [place] [address] 57808- 4207 December, [place] [id number] [place] [address] 69045- 0130 Nov, Bipolar disorder, current episode mixed, mild F31.61 and Personality disorder F60.9 [place] [address] [place] [address]- 7671 Nov, Elevated LDL cholesterol level E78.00 and Type 2 diabetes mellitus without complication, without long-term current use of insulin E11.9 [place] [address] [place] [address] 90108- 6126 Nov, Elevated LDL cholesterol level E78.00 and Type 2 diabetes mellitus without complication, without long-term current use of insulin E11.9 [place] [id number] [place] [address] 25241- 9381 Nov, Other chronic pain G89.29 and Pain in left leg M79.605 [place] [address] [address] 571399- 4978 02 Nov, 2017 Acute pain of left knee M25.562 ; Syncope, unspecified syncope type R55 and Hypoglycemia E16.2 [place] [id number] [place] [address] 26721- 2363 Oct, Syncope, unspecified syncope type R55 [place] [id number] [place] [address] 64369- 3953 Oct, Bipolar disorder, current episode mixed, mild F31.61 and Personality disorder F60.9 [place] [address] [place] [address] 51905- 0595 Oct, Lump of right breast N63.10 [place] [id number] [place] [address] 42173- 2903 Oct, Generalized anxiety disorder F41.1 [place] [id number] [place] [address] 38866- 5506 Oct, Generalized anxiety disorder F41.1 ; Bipolar disorder in remission F31.70 ; Bipolar disorder, current episode mixed, mild F31.61 and Primary insomnia F51.01 [place] [id number] [place] [address] 47208- 4798 Oct, Primary insomnia F51.01 and Lump of right breast N63.10 [place] [id number] [place] [address] 55652- 3178 16 Oct, 2017 Enteritis K52.9 [facility] [id number] [place] [address] 62519 -2146 14 Oct, 2017 Allergic conjunctivitis of both eyes H10.13 and Acute non intractable tension-type headache G44.209 [facility] [place] [address] 93213- 0338 Oct, [facility] [place] [address] 70383- 3020 Oct, Bipolar disorder, current episode mixed, mild F31.61 [place] [address] 30398- 0989 22 Sep, 2017 Right flank pain R10.9 and Thoracic spine pain M54.6 [place] [address] 53976- 7669 Sep, Generalized anxiety disorder F41.1 and Bipolar disorder, current episode mixed, mild F31.61 [place] [id number] [place] [address] 22896- 4571 Sep, [facility] [place] [id number] [place] [address] 14004- 7721 Sep, Generalized anxiety disorder F41.1 ; Bipolar disorder in remission F31.70 and Personality disorder F60.9 [place] [id number] [place] [address] 76317- 5134 Sep, Spasm of thoracic back muscle M62.830 ; Type 2 diabetes mellitus without complication, without long-term current use of insulin E11.9 and Generalized anxiety disorder F41.1 [place] [id number] [place] [address] 07744- 8537 Sep, Bipolar disorder, current episode mixed, mild F31.61 and Personality disorder F60.9 [place] [address] 59741- 1545 Aug, [place] [id number] [place] [address] 09164- 7870 Aug, Bipolar disorder, current episode mixed, mild F31.61 and Personality disorder F60.9 [place] [id number] [place] [address] 82624- 8335 Aug, Type 2 diabetes mellitus without complication, without long- term current use of insulin E11.9 ; Generalized anxiety disorder F41.1 ; Bipolar disorder in remission F31.70 and Overweight (BMI 25.0-29.9) E66.3 [place] [address] 13462- 4545 Aug, Type 2 diabetes mellitus without complication, without long- term current use of insulin E11.9 ; Elevated LDL cholesterol level E78.00 and Bipolar disorder, current episode mixed, mild F31.61 [facility] [id number] [place] [address] 02398 -8429 Jul, Vaginal discharge N89.8 ; Skin irritation R23.8 and Dysuria R30.0 [facility] [address] 91057 -4028 Jul, Acute seasonal allergic rhinitis, unspecified trigger J30.2 and Chest pain, unspecified type R07.9 [place] [id number] [place] [address] 53054- 7191 Jun, Bipolar disorder, current episode mixed, mild F31.61 [place] [id number] [place] [address] 46789- 8834 Jun, [place] [address] 10951- 1161 Jun, Bipolar disorder, current episode mixed, mild F31.61 and Personality disorder F60.9 [place] [id number] [place] [address] 84698- 4688 Jun, [place] [address] 35917- 0623 Jun, Type 2 diabetes mellitus without complication, without long- term current use of insulin E11.9 and Dysuria R30.0 [place] [address] 11376- 8722 May, Bipolar disorder, current episode mixed, mild F31.61 ; Personality disorder F60.9 and Homeless Z59.0 [place] [id number] [address]63 May, Type 2 diabetes mellitus without complication, without long- term current use of insulin E11.[address] 69014- 5855 May, History of hypertension Z86.[address] 23195- 8097 May, [address] 53715- 3858 May, Type 2 diabetes mellitus without complication, without long- term current use of insulin E11.9 ; Elevated LDL cholesterol level E78.00 ; Low serum HDL R74.8 and Encounter for immunization Z23 [address] 81001- 4872 Apr, Encounter to establish care Z76.89 ; Abnormal CBC R79.89 ; History of hypertension Z86.79 ; Overweight (BMI 25.0-29.9) E66.3 ; Family history of diabetes insipidus Z83.49 ; Sore throat J02.9 and Tonsillitis with exudate J03.90 [place] [id number] [place] [address] 30598- 1539 Apr, Bipolar disorder, current episode mixed, mild F31.[address] 92698- 8438 Mar, [address] 79473- 3744 Mar, Bipolar disorder, current episode mixed, mild F31.61 [facility] [place] [address] [address]- 9686 Mar, [facility] [place] [address] [place] [address] 66738- 9356 Mar, Bipolar disorder in remission F31.70 [facility] [place] [address] [place] [address] 38017- 1287 Jan, [facility] [place] [id number] [place] [address] 38626- 1181 Jan, [facility] [place] [id number] [place] [address] 13453- 1297 Oct, Generalized anxiety disorder F41.1 and Bipolar disorder in remission F31.70 [facility] [place] [id number] [address]- 5016 Oct, [facility] [place] [id number] [place] [address] 94456- 3458 Oct, [facility] [place] [address] [address]- 5446 Oct, [facility] [place] [id number] [place] [address] 00627- 7368 Oct, [facility] [place] [address] [address]- 2087 Jul, [facility] [place] [id number] [address]- 0516 Jun, [facility] [place] [id number] [address]- 1872 May, 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 and Generalized anxiety disorder F41.1 [facility] [place] [address] [address]- 3886 Jan, [facility] [place] [address] [address]- 4508 Jan, [facility] [place] [address] [address]- 4823 Jan, 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 and Generalized anxiety disorder F41.1 [facility] [place] [id number] 6466 Sep, [facility] [place] [id number] [place] [address] 511739- 8106 Sep, [facility] [place] [id number] [place] [address] 88675- 1113 Jul, 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 and Generalized anxiety disorder F41.1 [facility] [place] [id number] [place] [address] 502594- 2586 Jul, Otalgia of right ear H92.01 [facility] [place] [id number] [place] [address] 12526- 7177 Jun, [facility] [place] [id number] [place] [address] 92660- 7393 Mar, [facility] [place] [id number] [place] [address] 31697- 7752 Jan, [facility] [place] [id number] [place] [address] 97566- 8627 Jan, [facility] [place] [id number] [place] [address] 89871- 6884 Jan, Bipolar 1 disorder, mixed, moderate 296.62 and SHERRY ( generalized anxiety disorder) 300.02 [facility] [place] [address] [place] [address] 04410- 5153 Jan, [facility] [place] [id number] [place] [address] 36173- 4666 14 Nov, 2014 [facility] [place] [address] [place] [address] 68183- 1651 Nov, [facility] [place] [id number] [place] [address] [place] [address]- 1697 Oct, [facility] [address] [id number] [place] [address]- 8503 Oct, [facility] [place] [facility] [address] [id number] [place] [address]- 0012 Mar, [facility] [place] [facility] [address] [id number] [place] [address]- 7255 Mar, [facility] [place] [facility] [address] [id number] [place] [address]- 6909 Jan, [facility] [place] [facility] [address] [id number] [place] [address]- 3608 Jan, [facility] [place] [facility] [address] [id number] [place] [address]- 4506 December, [facility] [address] [id number] [place] [address]- 1681 December, [facility] [place] [facility] [address] [id number] [place] [address]- 5319 December, [facility] [place] [facility] [address] [id number] [place] [address]- 8832 December, [facility] [place] [facility] [address] [id number] [place] [address]- 7954 December, [facility] [place] [facility] [address] [id number] [place] [address]- 4754 December, [facility] [place] [facility] [address] [id number] [place] [address]- 4850 December, [facility] [place] [facility] [address] [id number] [place] [address]- 3188 December, [facility] [place] [facility] [address] [id number] [place] [address]- 7271 Nov, [facility] [place] [facility] [address] [id number] [place] [address]- 5314 Nov, [facility] [place] [facility] [address] [id number] [place] [address]- 8219 10 Oct, 2013 [facility] [place] [facility] [address] [id number] [place] [address]- 5484 Oct, [facility] [place] [facility] [address] [id number] [place] [address]- 8955 Oct, [facility] [place] [facility] [address] [id number] [place] [address]- 3155 Oct, [facility] [place] [facility] [address] [id number] [place] [address]- 5635 Oct, [facility] [place] [facility] [address] [id number] [place] [address]- 5447 Sep, [facility] [place] [facility] [address] [id number] [place] [address]- 7974 Sep, [facility] [place] [facility] [address] [id number] [place] [address]- 4534 Sep, [facility] [place] [facility] [address] [id number] [place] [address]- 9215 Sep, [facility] [place] [facility] [address] [id number] [place] [address]- 6304 Aug, [facility] [place] [facility] [address] [id number] [place] [address]- 1957 Aug, [facility] [place] [facility] [address] [id number] [place] [address]- 7434 Aug, [facility] [place] [facility] [address] [id number] [place] [address]- 1295 Aug, [facility] [place] [facility] [address] [id number] [place] [address]- 4381 Aug, [facility] [place] [facility] [address] [id number] [place] [address]- 8751 16 Jul, 2013 [facility] [place] [facility] [address] [id number] [address]- 3143 Jul, [facility] [place] [facility] [address] [id number] [place] [address]- 5917 Jul, [facility] [place] [facility] [address] [id number] [place] [address]- 1104 Jul, [facility] [place] [facility] [address] [id number] [place] [address]- 5654 Jun, [facility] [place] [facility] [address] [id number] [place] [address]- 1681 Jun, [facility] [place] [facility] [address] [id number] [place] 0933 May, [facility] [place] [facility] [address] [id number] [place] 4644 May, [facility] [place] [facility] [address] [id number] [place]- 5352 May, [facility] [place] [facility] [address] [id number] [place] [address]- 1584 May, [facility] [place] [facility] [address] [id number] [address]- 4303 May, [facility] [place] [facility] [address] [id number] [place] [address]- 8588 May, [facility] [place] [facility] [address] [id number] [address]- 5639 09 May, 2013 [facility] [place] [facility] [address] [id number] [address]- 7498 07 May, 2013 [facility] [place] [facility] [address] [id number] [address]- 0462 May, [facility] [place] [facility] [address] [id number] [address]- 6380 25 Apr, 2013 [facility] [place] [facility] [address] [id number] [place] [address] 2545 04 Apr, 2013 [facility] [place] [facility] [address] [id number] [place] [address]- 9997 Mar, [facility] [address] [id number] [place] [address]- 4336 Mar, [facility] [place] [facility] [address] [id number] [place] [address]- 3988 Mar, [facility] [address] [id number] [place] [address]- 6585 Mar, [facility] [address] [id number] [place] [address]- 0318 Mar, [facility] [address] [id number] [place] [address]- 7051 Mar, [facility] [address] [id number] [place] [address]- 3832 Mar, [facility] [address] [id number] [place] [address]- 4150 Mar, [facility] [address] [id number] [place] [address]- 0255 Mar, [facility] [place] [facility] [address] [id number] [place] [address]- 6169 Mar, [facility] [address] [id number] [place] [address]- 5551 Mar, [facility] [place] [facility] [address] [id number] [place] [address]- 7742 Jan, [facility] [address] [id number] [place] [address]- 9380 Jan, [facility] [place] [facility] [address] [id number] [place] [address]- 3159 Jan, [facility] [place] [facility] [address] [id number] [place] [address]- 1865 December, [facility] [place] [facility] [address] [id number] [place] [address]- 6464 December, [facility] [address] [id number] [place] [address]- 4797 Nov, [facility] [place] [facility] [address] [id number] [place] [address]- 3887 Nov, [facility] [address] [id number] [place] [address]- 1363 28 Oct, 2012 [facility] [place] [facility] [address] [id number] [place] [address]- 3895 26 Oct, 2012 [facility] [address] [id number] [place] [address]- 4366 21 Oct, 2012 [facility] [place] [facility] [address] [id number] [place] [address]- 2997 20 Oct, 2012 [facility] [place] [facility] [address] [id number] [place] [address]- 8956 19 Oct, 2012 [facility] [place] [facility] [address] [id number] [place] [address] 19 Oct, 2012 [facility] [place] [facility] [address] [id number] [place] [address] 17 Oct, 2012 [facility] [place] [facility] [address] [id number] [place] [address] 16 Oct, 2012 [facility] [place] [facility] [address] [id number] [place] [address] 14 Oct, 2012 [facility] [place] [facility] [address] [id number] [place] [address] 13 Oct, 2012 [facility] [place] [facility] [address] [id number] [place] [address] 05 Oct, 2012 [facility] [place] [facility] [address] [id number] [place] [address] 14 Sep, 2012 [facility] [place] [facility] [address] [id number] [place] [address] 08 Sep, 2012 [facility] [place] [facility] [address] [id number] [place] [address] Aug, [facility] [address] [id number] [place] [address] 16 Aug, 2012 [facility] [address] [id number] [place] [address] Aug, [facility] [address] [id number] [place] [address] Aug, [facility] [address] [id number] [place] [address] Aug, [facility] [address] [id number] [place] [address] Jul, [facility] [address] [id number] [place] [address] Jul, [facility] [address] [id number] [place] [address] 39[address] Jul, [facility] [address] [id number] [place] [address] 19 Jul, 2012 [facility] [address] [id number] [place] [address] 18 Jul, 2012 [facility] [address] [id number] [place] [address] 17 Jul, 2012 [facility] [address] [id number] [place] [address]758 14 Jul, 2012 [facility] [address] [id number] [place] [address] 14 Jul, 2012 [facility] [place] [facility] [address] [id number] [place] [address] 06 Jul, 2012 [facility] [place] [facility] [address] [id number] [place] [address] 06 Jul, 2012 [facility] [address] [id number] [place] [address] 05 Jul, 2012 [facility] [place] [facility] [address] [id number] [place] [address] Jul, [facility] [place] [facility] [address] [id number] [place] [address] Jul, [facility] [place] [facility] [address] [id number] [place] [address] Jul, [facility] [place] [facility] [address] [id number] [place] [address] Jul, [facility] [place] [facility] [address] [id number] [place] [address] Jul, [facility] [place] [facility] [address] [id number] [place] [address] Jun, [facility] [place] [facility] [address] [id number] [place] [id number] Jun, [facility] [place] [facility] [address] [id number] [place] [address] Jun, [facility] [place] [facility] [address] [id number] [place] [address] Jun, [facility] [place] [facility] [address] [id number] [place] [address] Jun, [facility] [place] [facility] [address] [id number] [place] [address] Jun, [facility] [place] [facility] [address] [id number] [place] [address] Jun, [facility] [place] [facility] [address] [id number] [place] [address] Jun, [facility] [place] [facility] [address] [id number] [place] [address] Jun, [facility] [place] [facility] [address] [id number] [place] [address] May, [facility] [place] [facility] [address] [id number] [place] [address] Mar, [facility] [place] [facility] [address] [id number] [place] [address] Mar, [facility] [place] [facility] [address] [id number] [place] [address] Mar, [facility] [place] [facility] [address] [id number] [place] [address] Mar, [facility] [place] [facility] [address] [id number] [place] [address] Jan, [facility] [place] [facility] [address] [id number] [place] [address] Jan, [facility] [place] [facility] [address] [id number] [place] [address] Jan, [facility] [place] [facility] [address] [id number] [place] [address] Jan, [facility] [place] [facility] [address] [id number] [place] [address] Jan, [facility] [place] [facility] [address] [id number] [place] [address] Jan, [facility] [place] [facility] [address] [id number] [place] [address] December, [facility] [place] [facility] [address] [id number] [place] [address] December, [facility] [place] [facility] [address] [id number] [place] [address] Nov, [facility] [place] [facility] [address] [id number] [place] [address] Nov, [facility] [place] [facility] [address] [id number] [place] [address] Oct, [facility] [place] [facility] [address] [id number] [place] [address] Oct, [facility] [place] [facility] [address] [id number] [place] [address] Oct, [facility] [address] [id number] [place] [address] Oct, [facility] [place] [facility] [address] [id number] [place] [address] Aug, [facility] [address] [id number] [place] [address] Aug, [facility] [place] [facility] [address] [id number] [place] [address] Jun, [facility] [place] [facility] [address] [id number] [place] [address] Jun, [facility] [place] [facility] [address] [id number] [place] [address] Jun, [facility] [place] [facility] [address] [id number] [place] [address] Jun, [facility] [place] [facility] [address] [id number] [place] [address] Jun, [facility] [place] [facility] [address] [id number] [place] [address] May, [facility] [place] [facility] [address] [id number] [place] [address] May, [facility] [place] [facility] [address] [id number] [place] [address] May, [facility] [place] [facility] [address] [id number] [place] [address] May, [facility] [place] [facility] [address] [id number] [place] [address] 24 May, 2011 [facility] [place] [facility] [address] [id number] [place] [address] May, [facility] [place] [facility] [address] [id number] [place] [address] 14 May, 2011 [facility] [place] [address] [id number] [address] Mar, [facility] [place] [id number] [address] May, [facility] [place] [id number] [address] Jan, [facility] [place] [id number] [address] Jul, [facility] [place] [id number] [address] Jun, [facility] [place] [id number] [place] [address] Jun, [facility] [place] [id number] [address] Jun, [facility] [place] [id number] [place] [address] Jun, [facility] [place] [address] [address] Jun, [facility] [place] [id number] [address] May, [facility] [place] [id number] [address] May, [facility] [place] [id number] [address] May, [facility] [place] [id number] [address] Jul, IMMUNIZATIONS No Known Immunizations SOCIAL HISTORY Never Assessed REASON FOR VISIT Pain (acute) foot , patient states she is having bilateral ankle pain , states is worst in the morning x 1 month -- thanh yañez PLAN OF CARE Activity Details Follow Up prn Reason: VITAL SIGNS Height 62 in 2018-03-26 Weight 174.0 lbs 2018-03-26 Temperature 97.1 degrees Fahrenheit 2018-03-26 Heart Rate 72 bpm 2018-03-26 Respiratory Rate 20 2018-03-26 BMI 31.82 kg/m2 2018-03-26 Blood pressure systolic 124 mmHg 2018-03-26 Blood pressure diastolic 78 mmHg 2018-03-26 MEDICATIONS Medication Instructions Dosage Frequency Start Date End Date Duration Status Glucocard Expression Test 1 subcutaneously 2 times a day test 2 times per day 12h May, 12 months Active Trazodone HCl 100 MG Orally Once a day 1 tablet or 1.5 tabs or 2 tabs 24h Jan, 30 day(s) Active Atorvastatin Calcium 10 mg Orally Once a day 1 tablet 24h May, 90 days Active Glimepiride 1 MG Orally Once a day 1 tablet with breakfast or the first main meal of the day 24h May, 90 days Active Lisinopril 5 MG Orally Once a day 1 tablet 24h 90 days Active Abilify 10 MG Orally [...]
--- NOTE | 2018-05-12 12:32 | ED General ---
General Stated Complaint: R KNEE PAIN Source of Information: Patient Exam Limitations: No Limitations History of Present Illness Date Seen by Provider: May 12, 2018 Time Seen by Provider: 12:31 Initial Comments To ER with reports of right knee pain. This is been ongoing for 1 week, worse in the morning and improves throughout the day. Timing/Duration: 1 Week Severity: Moderate Associated Systoms: No Fever/Chills Allergies and Home Medications Allergies Coded Allergies: ciprofloxacin (Verified Allergy, Unknown, 03/10/18) ciprofloxacin HCl (Verified Allergy, Unknown, 03/10/18) olanzapine (Unverified Adverse Reaction, Mild, rash, 01/15/12) Home Medications Doxycycline Hyclate 100 Mg Tablet, 100 MG PO BID Prescribed by: KAVON MEYERS on 01/27/18 171 Fluoxetine Hcl 20 Mg Capsule, 1 EACH PO DAILY, (Reported) Ibuprofen 600 Mg Tablet, 600 MG PO Q6H PRN for PAIN Prescribed by: KAVON MEYERS on 11/12/13 015 Lamotrigine 25 Mg Tab, 25 MG PO DAILY, (Reported) Metformin Hcl 500 Mg Tab.sr.24h, 2 EACH PO BID WITH MEALS, (Reported) Ondansetron HCl 4 Mg Tab, 4 MG PO Q4H PRN for nausea and vomiting Prescribed by: PEYMAN SANDERS on 02/17/18 152 Pantoprazole Sodium 20 Mg Tablet.dr, 20 MG PO DAILY Prescribed by: PEYMAN SANDERS on 02/17/18 152 Polyethylene Glycol 17 Gm Pack, 17 GM PO DAILY PRN for CONSTIPATION 1-2 times daily FOR CONSTIPATION Prescribed by: KAVON MEYERS on 11/12/13 015 Quetiapine Fumarate 25 Mg Tablet, 3 TAB PO HS, (Reported) Sulfamethoxazole/Trimethoprim 1 Each Tablet, 1 EACH PO BID Prescribed by: PEYMAN SANDERS on 02/17/18 1523 Patient Home Medication List Home Medication List Reviewed: Yes Review of Systems Review of Systems Constitutional: see HPI; No chills, No fever EENTM: see HPI Respiratory: no symptoms reported Cardiovascular: no symptoms reported Genitourinary: no symptoms reported Musculoskeletal: see HPI Skin: no symptoms reported Psychiatric/Neurological: No Symptoms Reported Hematologic/Lymphatic: No Symptoms Reported Past Lussftr-Kowwlb-Ytfite Hx Patient Social History 2nd Hand Smoke Exposure: No Recent Hopitalizations: No Immunizations Up To Date Date of Influenza Vaccine: Jul 03, 2013 Past Medical History Surgeries: Yes Appendectomy, Tubal Ligation Respiratory: No Cardiac: No Neurological: No Reproductive Disorders: No (STATES MENSES EVERY MONTH , NONE IN SEP) Genitourinary: No Gastrointestinal: No Musculoskeletal: No Endocrine: No Diabetes, Non-Insulin dep HEENT: No Cancer: No Psychosocial: Yes Sleep Difficulties, Anxiety, Depression Integumentary: No Blood Disorders: No Physical Exam Vital Signs Vital Signs - First Documented 05/12/18 12:25 Temp 97.2 Pulse 68 Resp 18 B/P (MAP) 192/98 (129) Pulse Ox 97 Capillary Refill : Height, Weight, BMI Height: 5'5.00" Weight: 157lbs. 0oz. 71.860997zq; BMI Method:Stated General Appearance: No Apparent Distress, WD/WN Eyes: Bilateral Eye Normal Inspection, Bilateral Eye PERRL, Bilateral Eye EOMI Respiratory: No Accessory Muscle Use, No Respiratory Distress Extremity: Normal Capillary Refill, Other (pain upon movement of the right knee but there is no swelling erythema ecchymosis or deformity) 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: Alert, Oriented x3, No Motor/Sensory Deficits Skin: Normal Color, Warm/Dry Progress/Results/Core Measures Suspected Sepsis SIRS Temperature: Pulse: Respiratory Rate: Blood Pressure / Mean: Results/Orders My Orders Orders - CHALINO LESLIE APRN Knee, Right, 3 Views (05/12/18 12:30) Vital Signs/I&O 05/12/18 12:25 Temp 97.2 Pulse 68 Resp 18 B/P (MAP) 192/98 (129) Pulse Ox 97 Capillary Refill : Departure Impression Primary Impression: Osteoarthritis of right knee Disposition: 01 HOME, SELF-CARE Condition: Stable Departure-Patient Inst. Decision time for Depature: 12:32 Referrals: ALINA MARIN DO (PCP) Primary Care Physician JOSESITO LUKE (Family) Primary Care Physician Patient Instructions: Arthritis and Exercise Add. Discharge Instructions: 1. Follow-up with your regular doctor later this week for recheck 2. Scripts Meloxicam (Meloxicam) 15 Mg Tablet 15 MG PO DAILY, #20 TAB Prov: CHALINO LESLIE APRN 05/12/18 CHALINO LESLIE APRN May 12, 2018 12:32
--- OUTSIDE RECORDS SUMMARY | 2018-05-12 12:33 | XMS REPORT | Continuity of Care Document ---
Author Author [facility] Organization [facility] Address Unknown Phone Unavailable Allergies Active Description Code Type Severity Reaction Onset Reported/Identified Relationship to Patient Clinical Status Yes ciprofloxacin Drug N/A N/A Yes ZyPREXA Drug N/A N /A Yes ciprofloxacin Drug Allergy N/ A N/A 12/05/2008 Yes ciprofloxacin Drug Allergy 12/05/2008 Yes Zyprexa Drug Allergy N/A N/A 04/02/2009 Yes Zyprexa Drug Allergy 04/02/2009 Yes olanzapine [id number] Drug Allergy Mild rash 01/15/2012 Yes CIPROFLOXACIN 70579 DRUG INGREDI N/A Itching 07/11/2013 Yes OLANZAPINE 73931 DRUG INGREDI N /A Itching 07/11/2013 Yes HYDROCODONE-ACETAMINOPHEN 42559 DRUG Low Itching~Rash 09/06/2016 09/06/2016 Yes ciprofloxacin [id number] Drug Allergy Unknown N/A 03/10/2018 Yes ciprofloxacin HCl [id number] Drug Allergy Unknown N/A 03/10/2018 Medications Medication Packaging Start Date Stop Date [...] ONEAL CROCKETT DO F 307.40 Insomnia 12/05/2008 OENAL CROCKETT DO F 401.1 HYPERTENSION, BENIGN ESSENTIAL [...] 12/05/2008 401.1 HYPERTENSION, BENIGN ESSENTIAL 12/05/2008 TI MAIL ORDER CLERK, JOSESITO S 307.40 Insomnia 12/05/2008 TI MAIL ORDER CLERK, JOSESITO S 401.1 HYPERTENSION, BENIGN ESSENTIAL 12/05/2008 [...] APRN 401.1 HYPERTENSION, BENIGN ESSENTIAL 12/05/2008 TI MAIL ORDER CLERK, JOSESITO S 307.40 Insomnia 12/05/2008 TI MAIL ORDER CLERK, JOSESITO S 401.1 HYPERTENSION, BENIGN ESSENTIAL 01/06/2009 [...] 788.1 Pain During Urination (dysuria) 04/02/2009 TI MAIL ORDER CLERK, JOSESITO S 626.8 Dysfunctional Uterine Bleeding 04/02/2009 TI MAIL ORDER CLERK, JOSESITO S 788.1 Pain During Urination (dysuria) [...] 05/09/2009 780.60 Fever [as Symptom] 05/09/2009 TI MAIL ORDER CLERK, JOSESITO S 487.1 Influenza, With Other Respiratory Manifestations 05/09/2009 TI ONEILL, JOSESITO S 780.60 Fever [as Symptom] 05/09/2009 487.1 Influenza, With Other Respiratory Manifestations 05/09/2009 780.60 Fever [as Symptom] 05/09/2009 487.1 Influenza, With Other Respiratory Manifestations 05/09/2009 780.60 Fever [as Symptom] 05/09/2009 WERDER DO, ONEAL F 487.1 Influenza, With Other Respiratory Manifestations 05/09/2009 WERDER DO, ONEAL F 780.60 Fever [as Symptom] 05/09/2009 TI MAIL ORDER CLERK, JOSESITO S 487.1 Influenza, With Other Respiratory Manifestations 05/09/2009 TI MAIL ORDER CLERK, JOSESITO S 780.60 Fever [as Symptom] 05/09/2009 MAXIMINO KHANNA MD 487.1 Influenza, With Other Respiratory Manifestations 05/09/2009 MAXIMINO KHANNA MD 780.60 Fever [as Symptom] 05/09/2009 MARIN DOAARONA K 487.1 Influenza, With Other Respiratory Manifestations 05/09/2009 AARON MARIN DOA K 780.60 Fever [as Symptom] 05/09/2009 TI MAIL ORDER CLERK, JOSESITO S 487.1 Influenza, With Other Respiratory Manifestations 05/09/2009 TI MAIL ORDER CLERK, JOSESITO S 780.60 Fever [as Symptom] 05/09/2009 GILLIAM APRN, MARLENE SANDERSON 487.1 Influenza, With Other Respiratory Manifestations 05/09/2009 GILLIAM MAIL ORDER CLERKMARLENE 780.60 Fever [as Symptom] 05/09/2009 TI ONEILL [...] 616.10 Vaginitis And Vulvovaginitis, Unspecified 01/17/2010 ALINA MRAIN DO K 709.01 Vitiligo 01/17/2010 MARIN ALINA [...] DO, ONEAL F 709.01 Vitiligo 01/17/2010 TI MAIL ORDER CLERK, JOSESITO S 616.10 Vaginitis And Vulvovaginitis, Unspecified 01/17/2010 TI MAIL ORDER CLERK, JOSESITO S 709.01 Vitiligo 01/17/2010 MAXIMINO KHANNA [...] MAI MARLENE ELMOREH 709.01 Vitiligo 01/17/2010 TI MAIL ORDER CLERK, JOSESITO S 616.10 Vaginitis And Vulvovaginitis, Unspecified 01/17/2010 TI MAIL ORDER CLERK, JOSESITO S 709.01 Vitiligo 02/28/2010 599.0 Urinary [...] LUKE APRN 461.9 Sinusitis Acute 03/25/2011 V72.31 Drafter Apprentice Exam, Routine 03/25/2011 ONEAL CROCKETT DO V72.31 Drafter Apprentice Exam, Routine 03/25/2011 ONEAL CROCKETT DO V72.31 Drafter Apprentice Exam, Routine 03/25/2011 V72.31 Drafter Apprentice Exam, Routine 03/25/2011 MARIN ALINA HORTON V72.31 Drafter Apprentice Exam, Routine 03/25/2011 MARIN DOALINA K V72.31 Drafter Apprentice Exam, Routine 03/25/2011 V72.31 Drafter Apprentice Exam, Routine 03/25/2011 JOSESITO LUKE APRN S V72.31 Drafter Apprentice Exam, Routine 03/25/2011 V72.31 Drafter Apprentice Exam, Routine 03/25/2011 V72.31 Drafter Apprentice Exam, Routine 03/25/2011 ONEAL CROCKETT DO V72.31 Drafter Apprentice Exam, Routine 03/25/2011 JOSESITO LUKE APRN S V72.31 Drafter Apprentice Exam, Routine 03/25/2011 MAXIMINO KHANNA MD V72.31 Drafter Apprentice Exam, Routine 03/25/2011 MARIN ALINA HORTON V72.31 Drafter Apprentice Exam, Routine 03/25/2011 JOSESITO LUKE APRN S V72.31 Drafter Apprentice Exam, Routine 03/25/2011 TAWANA ONEILL MARLENE ELMOREH V72.31 Drafter Apprentice Exam, Routine 03/25/2011 JOSESITO LUKE APRN S V72.31 Drafter Apprentice Exam, Routine 05/23/2011 789.00 Abdominal Pain Feels [...] 08/19/2011 724.2 Lumbago/ Low Back Pain 08/19/2011 OENAL CROCKETT DO F 599.0 Urinary Tract Infection [...] SANDERSON 728.85 Muscle Spasm 10/21/2011 JUAN RAMON ULKE APRNA S 728.85 Muscle Spasm 10/28/2011 V18.0 [...] OF DIABETES MELLITUS 12/18/2011 724.2 L[facility]BAGO [facility].2 LUM[facility]O 12/18/2011 [facility] ONEAL HORTON F 724.2 LUMBAGO 12/18/2011 724.2 LUMBAGO 12/18/2011 MARIN DOAARONA K 724.2 LUMBAGO 12/18/2011 MARIN DO, ALINA K 724.2 LUMBAGO 12/18/2011 724.2 LUMBAGO 12/18/2011 JOSESITO LUKE APRN S 724.2 LUMBAGO 12/18/2011 724.2 LUMBAGO 12/18/2011 724.2 LUMBAGO 12/18/2011 [facility] F 724.2 LUMBAGO 12/18/2011 JOSESITO LUKE APRN S 724.2 LUMBAGO 12/18/2011 MAXIMINO KHANNA MD 724.2 LUMBAGO 12/18/2011 MAIRN DOAARONA K 724.2 LUMBAGO 12/18/2011 JUAN RAMON [...] MD 923.00 CONTUSION OF SHOULDER REGION 05/20/2013 AARNO MARIN DOA K 923.00 CONTUSION OF SHOULDER [...] ABDOMINAL PAIN, OTHER SPECIFIED SITE 05/19/2015 V 255300 Abdominal Pain VUONG, DENNIS D 05/19/2015 V R10.32 Left lower quadrant pain VUONG, DENNIS D 07/20/2015 BRANDAU, BENNIE A V 12 Back Pain BRANDAU, BENNIE A 07/20/2015 BRANDAU, BENNIE A V [id number] Congestion BRANDAU, BENNIE A 07/20/2015 BRANDAU, BENNIE [...] ANA K 05/09/2016 BASSETT, P SELENA V 557286 Otalgia BASSETT, P SELENA 05/09/2016 BASSETT, P [...] WORKING R51 Headache 01/04/2017 MAXIMINO DUNN V 763371 Arm Pain MAXIMINO DUNN 01/04/2017 MAXIMINO DUNN [...] BREATH 03/30/2017 KAVON NOE MD Ot Z79.84 NUTRITION AIDE (CURRENT) USE OF ORAL HYPOGLYC 03/30/2017 KAVON [...] BREATH 04/03/2017 KAVON NOE MD Ot Z79.84 SHELTER (CURRENT) USE OF ORAL HYPOGLYC 04/03/2017 KAVON NOE MD, Ot Z90.49 ACQUIRED ABSENCE OF OTHER SPECIFIED PART 04/03/2017 KAVON NOE MD, Ot Z98.51 TUBAL LIGATION STATUS 10/27/2017 SREEKANTH WILKINS MAIL ORDER CLERK Ot N63.10 UNSPECIFIED LUMP IN THE RIGHT BREAST, UN 10/27/2017 SREEKANTH WILKINS R MAIL ORDER CLERK Ot N63.21 UNSPECIFIED LUMP IN THE LEFT BREAST, UPP 11/13/2017 SREEKANTH WILKINS R MAIL ORDER CLERK Ot N63.10 UNSPECIFIED LUMP IN THE RIGHT BREAST, UN 11/13/2017 SREEKANTH WILKINS R MAIL ORDER CLERK Ot N63.21 UNSPECIFIED LUMP IN THE LEFT BREAST, UPP 12/17/2017 SREEKANTH WILKINS MAIL ORDER CLERK Ot N63.10 UNSPECIFIED LUMP IN THE RIGHT BREAST, UN 12/17/2017 SREEKANTH WILKINS MAIL ORDER CLERK Ot N63.21 UNSPECIFIED LUMP IN THE LEFT [...] PAIN 12/17/2017 CASEY MANCIA MD, Ot Z79.84 NUTRITION AIDE (CURRENT) USE OF ORAL HYPOGLYC 12/17/2017 CASEY [...] THE RIGHT BREAST, UN 12/17/2017 SREEKANTH WILKINS MAIL ORDER CLERK Ot N63.21 UNSPECIFIED LUMP IN THE LEFT [...] PAIN 12/21/2017 CASEY MANCIA MD, Ot Z79.84 NUTRITION AIDE (CURRENT) USE OF ORAL HYPOGLYC 12/21/2017 CASEY MANCIA MD, Ot Z87.59 PERSONAL HISTORY OF COMP OF PREG, CHLDBR 12/21/2017 CASEY MANCIA MD, Ot Z88.1 ALLERGY STATUS TO OTHER ANTIBIOTIC AGENT 12/21/2017 CASEY MANCIA MD, Ot Z88.8 ALLERGY STATUS TO OTH DRUG/MEDS/BIOL SUB 12/21/2017 CASEY MANCIA MD, Ot Z90.49 ACQUIRED ABSENCE OF OTHER SPECIFIED PART 01/27/2018 SREEKANTH WILKINS MAIL ORDER CLERK Ot N63.10 UNSPECIFIED LUMP IN THE RIGHT BREAST, UN 01/27/2018 SREEKANTH WILKINS MAIL ORDER CLERK Ot N63.21 UNSPECIFIED LUMP IN THE LEFT [...] NONVENOM INSECT OTH NONVE 02/01/2018 KAVON NOE MD Ot Z79.84 NUTRITION AIDE (CURRENT) USE OF ORAL HYPOGLYC 02/01/2018 KAVON NOE MD Ot Z88.1 ALLERGY STATUS TO OTHER ANTIBIOTIC AGENT 02/01/2018 KAVON NOE MD Ot Z88.8 ALLERGY STATUS TO OTH DRUG/MEDS/BIOL SUB 02/01/2018 KAVON NOE MD Ot Z90.49 ACQUIRED ABSENCE OF OTHER SPECIFIED PART 02/01/2018 KAVON NOE MD Ot Z98.51 TUBAL LIGATION STATUS 02/19/2018 PEYMAN SANDERS Ot E11.9 TYPE 2 DIABETES MELLITUS WITHOUT COMPLIC 02/19/2018 BERNSIMONA BEJARANOIS Ot F32.9 MAJOR DEPRESSIVE DISORDER, SINGLE EPISOD 02/19/2018 BERNOT PEYMAN Ot F41.9 ANXIETY DISORDER, UNSPECIFIED 02/19/2018 BERNOT PEYMAN Ot K92.0 HEMATEMESIS 02/19/2018 BERNDARCI PEYMAN Ot N39.0 URINARY TRACT INFECTION, SITE NOT SPECIF 02/19/2018 BERNOT PEYMAN Ot R11.10 VOMITING, UNSPECIFIED 02/19/2018 BERNDARCI PEYMAN Ot Z79.84 NUTRITION AIDE (CURRENT) USE OF ORAL HYPOGLYC 02/19/2018 MARILYN PEYMAN Ot Z88.1 ALLERGY STATUS TO OTHER ANTIBIOTIC AGENT 02/19/2018 BERNOT PEYMAN Ot Z88.8 ALLERGY STATUS TO OTH DRUG/MEDS/BIOL SUB 02/19/2018 BERNOT PEYMAN Ot Z90.89 ACQUIRED ABSENCE OF OTHER ORGANS 02/19/2018 SIMONA SANDERSIS Ot Z98.51 TUBAL LIGATION STATUS 04/18/2018 BLANCHE ALATORRE, CASEY Love Ot E11.9 TYPE 2 DIABETES MELLITUS WITHOUT COMPLIC 04/18/2018 BLANCHE ALATORRE, CASEY Love Ot F32.9 MAJOR DEPRESSIVE DISORDER, SINGLE EPISOD 04/18/2018 CASEY MANCIA MD Ot F41.9 ANXIETY DISORDER, UNSPECIFIED 04/18/2018 CASEY MANCIA MD, Ot 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 FASCIAL FIBROMATOSIS 04/18/2018 CASEY MANCIA MD, Ot M79.672 PAIN IN LEFT FOOT 04/18/2018 CASEY MANCIA MD Ot Z79.84 NUTRITION AIDE (CURRENT) USE OF ORAL HYPOGLYC 04/18/2018 CASEY MANCIA MD Ot Z88.0 ALLERGY STATUS TO PENICILLIN 04/18/2018 CASEY MANCIA MD Ot Z88.8 ALLERGY STATUS TO OTH DRUG/MEDS/BIOL SUB 04/18/2018 CASEY MANCIA MD Ot Z90.89 ACQUIRED ABSENCE OF OTHER ORGANS 04/18/2018 CASEY MANCIA MD, Ot Z98.51 TUBAL LIGATION STATUS 04/20/2018 CASEY MANCIA MD Ot E11.9 TYPE 2 DIABETES MELLITUS WITHOUT COMPLIC 04/20/2018 CASEY MANCIA MD, Ot F32.9 MAJOR DEPRESSIVE DISORDER, SINGLE EPISOD 04/20/2018 CASEY MANCIA MD, Ot F41.9 ANXIETY DISORDER, UNSPECIFIED 04/20/2018 CASEY MANCIA MD, Ot 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 FASCIAL FIBROMATOSIS 04/20/2018 CASEY MANCIA MD, Ot M79.672 PAIN IN LEFT FOOT 04/20/2018 CASEY MANCIA MD Ot Z79.84 SHELTER (CURRENT) USE OF ORAL HYPOGLYC 04/20/2018 CASEY MANCIA MD Ot Z88.0 ALLERGY STATUS TO PENICILLIN 04/20/2018 CASEY MANCIA MD, Ot Z88.8 ALLERGY STATUS TO OTH DRUG/MEDS/BIOL SUB 04/20/2018 CASEY MANCIA MD, Ot Z90.89 ACQUIRED ABSENCE OF OTHER ORGANS 04/20/2018 CASEY MANCIA MD Ot Z98.51 TUBAL LIGATION STATUS 04/30/2018 SREEKANTH WILKINS APRN Ot N63.10 UNSPECIFIED LUMP IN THE RIGHT BREAST, UN 04/30/2018 SREEKANTH WILKINS APRN Ot N63.21 UNSPECIFIED LUMP IN THE LEFT BREAST, UPP Procedures Code Description Performed By Performed On [facility] Sarai Brito 06/23/2012 11808 A1C (IN-HOUSE) 06/23/2012 09986 PSYCH DIAG INTER EXAM 07/07/2012 19217 SLEEP STUDY 07/07/2012 03391 EKG, TRACING (IN-HOUSE) 07/14/2012 31338 TRICHOMONAS (IN-HOUSE) 10/14/2012 41737 GC/CHLAM PROBE (STATE) 10/15/2012 49648 PAP SMEAR 10/15/2012 Q0091 PAP SMEAR OBTAIN SMEAR 10/15/2012 60065 CULTURE UROGENITAL 10/15/2012 23363 UA W/ CULTURE IF INDICATED 01/21/2013 J2550 PHENERGAN INJECTION UP TO 50 MG 01/24/2013 55567 THERAPUTIC INJ SQ/IM 01/24/2013 00843 A1C (IN-HOUSE) 05/11/2013 42506 MICRO ALBUMIN-IN HOUSE 05/11/2013 10281 XRAY SHOULDER LEFT COMP 2 VIEWS 05/20/2013 24310 THERAPUTIC INJ SQ/IM 05/25/2013 23588 UA W/ CULTURE IF INDICATED 05/25/2013 07418 Emergency department visit for the evalu FREEDOM [...] 10*3/uL 0.4-1.08 VAGINITIS SCREEN - 10/02/15 11:15 6339011 Negative 1948912 Negative 3322367 Positive NEISSERIA GONORRHOEAE AMPLIFIED PROBE - 10/02/15 11:15 3057868 Negative Negative CHLAMYDIA TRACHOMATIS AMPLIFIED PROBE - 10/02/15 11:15 2067678 Negative Negative CBC WITH AUTO DIFFERENTIAL - [...] RED CELL DISTRIBUTION WIDTH 13.6 % 11.9-15.5 5946998 13.0 10E9/L 3.5-10.5 5951649 3.20 10E9/L 0.90-2.90 8677739 0.80 10E9/L 0.30-0.90 1484664 0.20 10E9/L 0.05-0.50 2955143 8.80 10E9/L 1.70-7.00 9767970 0.10 10E9/L 0.00-0.30 PT T APTT - [...] mg/dL 0.2 WBC UA 0-3 /HPF 0-3 3136858 Negative Negative CHLAMYDIA TRACHOMATIS AMPLIFIED PROBE - 11/07/15 12:10 5890843 Negative Negative NEISSERIA GONORRHOEAE AMPLIFIED PROBE - 11/07/15 12:10 9550401 Negative Negative SEDIMENTATION RATE, MANUAL - 05/09/16 08:51 8041052 35 mm/Hr <=20 C-REACTIVE PROTEIN - 05/09/16 08:51 0678031 1.1 mg/dL <=0.9 COMPREHENSIVE METABOLIC PANEL - [...] RED CELL DISTRIBUTION WIDTH 14.1 % 11.9-15.5 4213036 14.5 10E9/L 3.5-10.5 0471082 4.20 10E9/L 0.90-2.90 2660300 0.90 10E9/L 0.30-0.90 9353902 0.20 10E9/L 0.05-0.50 6481598 9.20 10E9/L 1.70-7.00 8835010 0.10 10E9/L 0.00-0.30 COMPREHENSIVE METABOLIC PANEL - [...] mmol/L 136-145 URINE CULTURE - 06/07/16 15:39 9834727 Urogenital jah URINALYSIS, REFLEX CULTURE IF NEEDED [...] mg/dL 0.2 WBC UA 0-3 /HPF 0-3 4357153 Negative Negative STREP SCREEN CONFIRMATION - 09/06/16 17:31 7137622 Negative CBC With Differential/Platelet - 03/30/17 11:45 [...] 09:40 Hemoglobin A1c 6.7 % 4.8-5.6 Thyroid Glen Profile - 04/28/17 09:40 TSH 1.670 uIU/mL [...] rouleaux detection by light microscopy MOD NRG Capillary blood glucose measurement by glucometer (mass/volume) - 04/18/18 16: 27 Capillary blood glucose measurement by glucometer (mass/volume) 120 mg/dL 70-110 THYROID ANALYZER - 04/22/18 09:12 TSH 1.99 mIU/L NRG Encounters ACCT No. Visit Date/Time Discharge Status Pt. Type Provider Facility Loc./Unit Complaint [id number] 01/04/2017 08:02:44 01/04/2017 08:35:00 DIS Emergency LEAD ENGINEER, MAXIMINO G [facility] [id number] 09/06/2016 17:04:47 09/06/2016 19:01:00 DIS Emergency Darian REYNOLDS [facility] [id number] 05/09/2016 08:02:00 05/09/2016 12:17:00 DIS Emergency Darian REYNOLDS [facility] [id number] 04/06/2016 16:17:58 04/06/2016 17:37:00 DIS Emergency ANA LEACH [facility] [id number] 11/07/2015 09:16:36 11/07/2015 12:27:00 DIS Emergency Darian REYNOLDS [facility] [id number] 10/23/2015 15:42:24 10/23/2015 23:59:59 CLS Outpatient GIGI GREEN [facility] LAB [id number] 10/21/2015 17:19:05 10/21/2015 23:59:59 CLS Outpatient GIGI GREEN [facility] LAB [id number] 10/02/2015 10:17:23 10/02/2015 23:59:59 CLS Outpatient MARGARITO RAMIRES [facility] [id number] 09/25/2015 09:05:41 09/25/2015 23:59:59 CLS Outpatient ESPINORUTH [facility] EXP [id number] 07/20/2015 15:15:02 07/20/2015 23:59:59 CLS Outpatient BENNIE LOPEZ [facility] EXP [id number] 06/07/2016 14:04:27 Document Registration [id number] 10/12/2015 15:33:36 Document Registration [id number] 10/02/2015 11:24:39 Document Registration [id number] 07/03/2015 13:44:27 Document Registration [id number] 02/18/2018 11:40:00 02/18/2018 23:59:59 CLS Outpatient SREEKANTH WILKINS [facility] [id number] 04/22/2018 08:40:00 Document Registration [id number] 12/15/2017 15:00:00 Document Registration [id number] 04/28/2017 08:40:00 Document Registration [id number] 08/15/2016 09:53:00 08/15/2016 11:23:00 DIS Emergency Drake Perez [facility] ER EENT [id number] 04/18/2018 15:22:00 04/18/2018 17:13:00 DIS Emergency CASEY MANCIA MD [facility] ER PAIN IN CALF [id number] 02/22/2018 15:00:00 02/22/2018 23:59:59 CLS Preadmit OTHER, UNLISTED [facility] RAD POSTERIOR RIGHT KNEE PAIN [id number] 02/17/2018 11:59:00 02/17/2018 16:00:00 DIS Outpatient PEYMAN SANDERS [facility] ER ABD PAIN,VOMITING [id number] 01/27/2018 14:25:00 01/27/2018 17:24:00 DIS Outpatient KAVON NOE MD [facility] ER RT SIDE RASH [id number] 01/05/2018 10:45:00 01/05/2018 23:59:59 CLS Preadmit SREEKANTH WILKINS MAIL ORDER CLERK [facility] RAD CYST OF OVARY, UNSPECIFIED LATERALITY [id number] 12/17/2017 12:38:00 12/17/2017 16:32:00 DIS Emergency CASEY MANCIA MD [facility] ER ABD PAIN [id number] 10/26/2017 13:14:00 10/26/2017 23:59:59 CLS Outpatient SREEKANTH WILKINS MAIL ORDER CLERK [facility] RAD LUMP OF RT BREAST [id number] 03/30/2017 14:45:00 03/30/2017 17:12:00 DIS Emergency KAVON NOE MD [facility] ER SOA [id number] 11/12/2013 00:01:00 11/12/2013 02:34:00 DIS Emergency KAVON NOE MD [facility] ER BACK PAIN [id number] 09/26/2013 15:26:00 09/26/2013 19:55:00 DIS Emergency KALINA ADRIAN [facility] ER HEADACHE [id number] 05/12/2018 11:56:00 ACT Emergency KAVON NOE MD [facility] ER R KNEE PAIN [id number] 07/17/2012 16:04:00 Document Registration [id number] 01/15/2012 05:56:00 Document Registration [id number] 10/06/2016 06:03:32 ACT Document Registration [id number] 10/10/2013 13:56:00 10/10/2013 23:59:59 CLS Outpatient TAWANA MAIMARLENE [id number] 09/27/2013 10:43:00 09/27/2013 23:59:59 CLS Outpatient JOSESITO LUKE APRN [id number] 05/25/2013 11:17:00 05/25/2013 23:59:59 CLS Outpatient ALINA MARIN DO [id number] 05/20/2013 10:35:00 05/20/2013 23:59:59 CLS Outpatient MAXIMINO KHANNA MD [id number] 05/11/2013 10:41:00 05/11/2013 23:59:59 CLS Outpatient JOSESITO LUKE APRN [id number] 03/03/2013 17:12:00 03/03/2013 23:59:59 CLS Outpatient ONEAL CROCKETT DO [id number] 10/26/2012 09:50:00 10/26/2012 23:59:59 CLS Outpatient JOSESITO LUKE APRN [id number] 10/20/2012 11:47:00 10/20/2012 23:59:59 CLS Outpatient [id number] 10/14/2012 09:46:00 10/14/2012 23:59:59 CLS Outpatient ALINA MARIN DO [id number] 09/16/2012 10:21:00 09/16/2012 23:59:59 CLS Outpatient ALINA MARIN DO [id number] 09/02/2012 11:15:00 09/02/2012 23:59:59 CLS Outpatient [id number] 08/14/2012 10:00:00 08/14/2012 23:59:59 CLS Outpatient ONEAL CROCKETT DO [id number] 07/08/2012 16:54:00 07/08/2012 23:59:59 CLS Outpatient ONEAL CROCKETT DO [id number] 07/06/2012 15:30:00 07/06/2012 23:59:59 CLS Outpatient [id number] 05/20/2012 13:51:00 05/20/2012 23:59:59 CLS Outpatient JOSESITO LUKE APRN [id number] 01/24/2013 13:14:00 Document Registration [id number] 11/23/2012 14:01:00 Document Registration [id number] 09/27/2016 11:59:00 09/27/2016 14:25:00 DIS Emergency SELENA PONCE [facility] FED [id number] 06/25/2016 12:18:00 06/25/2016 12:54:00 DIS Emergency [facility] FED [id number] 11/13/2014 04:26:00 11/13/2014 05:49:00 DIS Emergency SANNAFRANNY S [facility] FED [id number] 11/07/2014 18:20:00 11/07/2014 22:19:00 DIS Emergency MARLENE LANZA [facility] FED [id number] 10/31/2014 15:51:00 10/31/2014 19:03:00 DIS Emergency TOM BLAIR [facility] FED [id number] 03/31/2017 08:36:00 Document Registration [id number] 04/29/2017 14:11:00 Document Registration
--- NOTE | 2018-05-12 12:56 | Diagnostic Imaging Report ---
INDICATION: 5 day history of knee pain after twisting injury. TECHNIQUE: 3 views of the right knee CORRELATION STUDY: None FINDINGS: The joint spaces are maintained. The articular surfaces are smooth and preserved. There is no acute bony abnormality. Soft tissues are unremarkable. IMPRESSION: 1. Negative for acute bony abnormality of the knee. Dictated by: Dictated on workstation # [id number]
[2018-05-12] MEDS ORDERED: MELO15TA39 PO (12:59)
[2018-05-12 13:21] VITALS: BP 192/98
== END 2018-05-12 13:21 | disposition home or self-care (01) ==
LOC: ER 11:56 → EDUNIT# 11:56 → ER 13:21
DX: M17.11 Unilateral primary osteoarthritis, right knee (principal); E11.9 Type 2 diabetes mellitus without complications; F41.9 Anxiety disorder, unspecified; F32.9 Major depressive disorder, single episode, unspecified; Z88.1 Allergy status to other antibiotic agents; Z88.8 Allergy status to other drugs, medicaments and biological substances; Z79.84 Long term (current) use of oral hypoglycemic drugs; Z98.51 Tubal ligation status; Z90.89 Acquired absence of other organs
CPT/HCPCS: 73562

== ENCOUNTER → 2018-05-21 | Outpatient (CLI) | payer SELFPAY ==
[~2018-05-21] MED LIST changes: +MELO15TA39 PO
--- NOTE | 2018-05-21 19:32 | Diagnostic Imaging Report ---
EXAMINATION: Magnetic resonance imaging of the right knee without intravenous contrast DATE: May 21, 2018. COMPARISON: Right knee radiographs, May 12, 2018. INDICATION: 43-year-old female, right knee pain. Recent injury. TECHNIQUE: Multiplanar, multisequence non contrast enhanced MR imaging was accomplished. FINDINGS: MENISCI: There is an oblique tear with inferior surface extension involving the body and posterior horn of the medial meniscus. There is also a vertically oriented tear involving the peripheral third of the body of the medial meniscus. There is very slight medial meniscal extrusion measuring approximately 2-3 mm. There is a small vertically oriented tear involving the body of the lateral meniscus. LIGAMENTS AND TENDONS: The anterior and posterior cruciate ligaments are intact. The medial collateral ligament is intact. The iliotibial band, mid third lateral capsular ligament, fibular collateral ligament, biceps femoris tendon and conjoined tendon are intact. The quadriceps tendon and patella ligament are intact. JOINT: The articular cartilage surfaces are intact. There is no knee joint effusion, prominent synovitis, or intra-articular body. BONE: There is unremarkable bone marrow signal. Specifically, negative for fracture, osteomyelitis, osteonecrosis, or marrow replacing process. BURSAE AND SOFT TISSUES: There is a multiloculated Trevino's cyst measuring up to approximately 1.8 x 1.7 x 3.4 cm in size. There is very low-level interfascial fluid between the medial and lateral heads of gastrocnemius. This relates to partial rupture of the Trevino's cyst. IMPRESSION: 1. Multidirectional tear involving the body and posterior horn of the medial meniscus, as described above, with mild medial meniscal extrusion, measuring 2-3 mm. 2. Small vertically oriented tear involving the body of the lateral meniscus. 3. Intact anterior and posterior cruciate ligaments. 4. Intact articular cartilage. No knee joint effusion. 5. Multiloculated Trevino's cyst which is partially ruptured. Dictated by: Dictated on workstation # [id number]
== END ==
LOC: RAD 08:57
PROVIDERS: ATTEND Physician Assistant
DX: S83.241A Other tear of medial meniscus, current injury, right knee, initial encounter (principal); S83.281A Other tear of lateral meniscus, current injury, right knee, initial encounter; M71.21 Synovial cyst of popliteal space [Baker], right knee
CPT/HCPCS: 73721

== ENCOUNTER 2018-07-04 12:03 | Emergency (ER) | payer SELFPAY ==
[~2018-07-04] VITALS: Ht 152.4 cm; Wt 80.7 kg
--- OUTSIDE RECORDS SUMMARY | 2018-07-04 12:12 | XMS REPORT | Continuity of Care Document ---
Author Author [facility] Address Unknown Phone Unavailable Allergies Active Description Code Type Severity Reaction Onset Reported/Identified Relationship to Patient Clinical Status Yes ciprofloxacin Drug N/A N/A Yes ZyPREXA Drug N/A N /A Yes ciprofloxacin Drug Allergy N/ A N/A 12/05/2008 Yes ciprofloxacin Drug Allergy 12/05/2008 Yes Zyprexa Drug Allergy N/A N/A 04/02/2009 Yes Zyprexa Drug Allergy 04/02/2009 Yes olanzapine [id number] Drug Allergy Mild rash 01/15/2012 Yes CIPROFLOXACIN 54868 DRUG INGREDI N/A Itching 07/11/2013 Yes OLANZAPINE 00968 DRUG INGREDI N /A Itching 07/11/2013 Yes HYDROCODONE-ACETAMINOPHEN 02333 DRUG Low Itching~Rash 09/06/2016 09/06/2016 Yes ciprofloxacin [id number] Drug Allergy Unknown N/A 03/10/2018 Yes ciprofloxacin HCl [id number] Drug Allergy Unknown N/A 03/10/2018 Medications Medication [...] Depressive Disorder Nos 03/13/2008 TAWANA ONEILL MARLENE KIN 311 Mo Depressive Disorder Nos 03/13/2008 JOSESITO [...] Risk 03/15/2008 V58.69 Medication High Risk 03/15/2008 JOSESIOT LUKE APRN S V58.69 Medication High Risk 03/15/2008 V58.69 Medication High Risk 03/15/2008 V58.69 Medication High Risk 03/15/2008 ONEAL CROCKETT DO F V58.69 Medication High Risk 03/15/2008 JOSESITO LUKE APRN S V58.69 Medication High Risk 03/15/2008 MAXIMINO KHANNA MD V58.69 Medication High Risk 03/15/2008 ALINA MARIN DO K V58.69 Medication High Risk 03/15/2008 JUAN RAMON LUKE APRNA S V58.69 Medication High Risk 03/15/2008 TAWANA ONEILL MARLENE ELMOREH V58.69 Medication High Risk 03/15/2008 JOSESITO LUKE APRN S V58.69 Medication High Risk 04/06/2008 477.0 Allergic Rhinitis Due To Pollen 04/06/2008 708.9 Urticaria/ hives Unspec 04/06/2008 ONEAL CROCKETT DO F 477.0 Allergic Rhinitis Due To Pollen 04/06/2008 ONEAL CROCKETT DO F 708.9 Urticaria/hives Unspec 04/06/2008 ONEAL CROCKETT DO F 477.0 Allergic Rhinitis Due To Pollen 04/06/2008 ONEAL CROCKETT DO 708.9 Urticaria/hives Unspec 04/06/2008 477.0 Allergic Rhinitis Due To Pollen 04/06/2008 708.9 Urticaria/ hives Unspec 04/06/2008 MARIN DO, ALINA K 477.0 Allergic Rhinitis Due To Pollen 04/06/2008 MARIN DO, ALINA K 708.9 Urticaria/hives Unspec 04/06/2008 MARIN DO, ALINA K 477.0 Allergic Rhinitis Due To Pollen 04/06/2008 MARNI DO, ALINA K 708.9 Urticaria/hives Unspec 04/06/2008 477.0 Allergic Rhinitis Due To Pollen 04/06/2008 708.9 Urticaria/ hives Unspec 04/06/2008 JOSESITO LUKE APRN S 477.0 Allergic Rhinitis Due To Pollen 04/06/2008 JOSESITO LUKE APRN S 708.9 Urticaria/hives Unspec 04/06/2008 477.0 Allergic Rhinitis Due To Pollen 04/06/2008 708.9 Urticaria/ hives Unspec 04/06/2008 477.0 Allergic Rhinitis Due To Pollen 04/06/2008 708.9 Urticaria/ hives Unspec 04/06/2008 DANIADER ONEAL HORTON F 477.0 Allergic Rhinitis Due To Pollen 04/06/2008 DANIADER ONEAL HORTON F 708.9 Urticaria/hives Unspec 04/06/2008 JOSESITO LUKE [...] LUKE APRN S 708.9 Urticaria/hives Unspec 04/06/2008 MARLENE GILLIAM [...] 463 Tonsillitis Acute 05/08/2008 ALINA MARIN DO 463 Tonsillitis Acute 05/08/2008 ALINA MARIN DO 463 Tonsillitis Acute 05/08/2008 463 Tonsillitis Acute 05/08/2008 JOSESITO LUKE APRN 463 Tonsillitis Acute 05/08/2008 463 Tonsillitis Acute 05/08/2008 463 Tonsillitis Acute 05/08/2008 ONEAL CROCKETT DO 463 Tonsillitis Acute 05/08/2008 JOSESITO LUKE APRN 463 Tonsillitis Acute 05/08/2008 MAXIMINO KHANNA MD 463 Tonsillitis Acute 05/08/2008 ALINA MARIN DO 463 Tonsillitis Acute 05/08/2008 JOSESITO LUKE APRN 463 Tonsillitis Acute 05/08/2008 MARLENE GILLIAM APRN 463 Tonsillitis Acute 05/08/2008 JOSESITO LUKE APRN 463 Tonsillitis Acute 05/09/2008 300.00 AN ANXIETY UNSPEC 05/09/2008 ONEAL CROCKETT DO 300.00 AN ANXIETY UNSPEC 05/09/2008 ONEAL CROCKETT DO 300.00 AN ANXIETY UNSPEC 05/09/2008 300.00 AN ANXIETY UNSPEC 05/09/2008 ALINA MARIN DO 300.00 AN ANXIETY UNSPEC 05/09/2008 ALINA MARIN DO 300.00 AN ANXIETY UNSPEC 05/09/2008 300.00 AN ANXIETY UNSPEC 05/09/2008 JOSESITO LUKE APRN 300.00 AN ANXIETY UNSPEC 05/09/2008 300.00 AN ANXIETY UNSPEC 05/09/2008 300.00 AN ANXIETY UNSPEC 05/09/2008 ONEAL CROCKETT DO 300.00 AN ANXIETY UNSPEC 05/09/2008 JOSESITO LUKE APRN S 300.00 AN ANXIETY UNSPEC 05/09/2008 MAXIMINO KHANNA MD 300.00 AN ANXIETY UNSPEC 05/09/2008 MARIN DOALINA K 300.00 AN ANXIETY UNSPEC 05/09/2008 JUAN [...] ONEILL MARLENE SANDERSON 724.5 Backache Unspecified 06/30/2008 JOSESITO LUKE APRN S 724.5 Backache Unspecified 12/05/2008 307.40 Insomnia 12/05/2008 401.1 HYPERTENSION, BENIGN ESSENTIAL 12/05/2008 ONEAL CROCKETT DO F 307.40 Insomnia 12/05/2008 ONEAL CROCKETT DO 401.1 HYPERTENSION, BENIGN ESSENTIAL 12/05/2008 ONEAL CROCKETT [...] 12/05/2008 401.1 HYPERTENSION, BENIGN ESSENTIAL 12/05/2008 TI BOOT AND SHOE REPAIRMAN, JOSESITO S 307.40 Insomnia 12/05/2008 TI BOOT AND SHOE REPAIRMAN, JOSESITO S 401.1 HYPERTENSION, BENIGN ESSENTIAL 12/05/2008 307.40 Insomnia 12/05/2008 401.1 HYPERTENSION, BENIGN ESSENTIAL 12/05/2008 307.40 Insomnia 12/05/2008 401.1 HYPERTENSION, BENIGN ESSENTIAL 12/05/2008 ONEAL CROCKETT DO 307.40 Insomnia 12/05/2008 DANIAHORN ONEAL Romero 401.1 HYPERTENSION, BENIGN ESSENTIAL 12/05/2008 TI BOOT AND SHOE REPAIRMAN, JOSESITO S 307.40 Insomnia 12/05/2008 TI BOOT AND SHOE REPAIRMAN, JOSESITO S 401.1 HYPERTENSION, BENIGN ESSENTIAL 12/05/2008 MAXIMINO KHANNA MD 307.40 Insomnia 12/05/2008 MAXIMINO KHANNA MD 401.1 HYPERTENSION, BENIGN ESSENTIAL 12/05/2008 MARIN DO, ALINA K 307.40 Insomnia 12/05/2008 MARIN , ALINA K 401.1 HYPERTENSION, BENIGN ESSENTIAL 12/05/2008 TI BOOT AND SHOE REPAIRMAN, JOSESITO S 307.40 Insomnia 12/05/2008 TI BOOT AND SHOE REPAIRMAN, JOSESITO S 401.1 HYPERTENSION, BENIGN ESSENTIAL 12/05/2008 MARLENE GILLIAM APRN 307.40 Insomnia 12/05/2008 TAWANA ONEILL MARLENE KIN 401.1 HYPERTENSION, BENIGN ESSENTIAL 12/05/2008 TI BOOT AND SHOE REPAIRMAN, JOSESITO S 307.40 Insomnia 12/05/2008 TI BOOT AND SHOE REPAIRMAN, JOSESITO S 401.1 HYPERTENSION, BENIGN ESSENTIAL 01/06/2009 535.50 Gastritis Unspec 01/06/2009 789.00 Abdominal Pain Unspecified Site 01/06/2009 ONEAL CROCKETT DO 535.50 Gastritis Unspec 01/06/2009 ONEAL CROCKETT DO 789.00 Abdominal Pain Unspecified Site 01/06/2009 ONEAL CROCKETT DO 535.50 Gastritis Unspec 01/06/2009 ONEAL CROCKETT DO 789.00 Abdominal Pain Unspecified Site 01/06/2009 535.50 Gastritis Unspec 01/06/2009 789.00 Abdominal Pain Unspecified Site 01/06/2009 MARIN DOAARONA K 535.50 Gastritis Unspec 01/06/2009 MARIN DO, [...] 01/06/2009 789.00 Abdominal Pain Unspecified Site 01/06/2009 DANIAMANUEL DO ONEAL Romero 535.50 Gastritis Unspec 01/06/2009 DANIAHORN ONEAL Romero 789.00 Abdominal Pain Unspecified Site 01/06/2009 JOSESITO LUKE APRN S 535.50 Gastritis Unspec 01/06/2009 JOSESITO LUKE APRN S 789.00 Abdominal Pain Unspecified Site 01/06/2009 MAXIMINO KHANNA MD 535.50 Gastritis Unspec 01/06/2009 MAXIMINO KHANNA MD 789.00 Abdominal Pain Unspecified Site 01/06/2009 MARIN DOALINA K 535.50 Gastritis Unspec 01/06/2009 MARIN DO [...] Dysfunctional Uterine Bleeding 04/02/2009 ONEAL CROCKETT DO F 788.1 Pain During Urination (dysuria) 04/02/2009 ONEAL [...] 04/02/2009 788.1 Pain During Urination (dysuria) 04/02/2009 JUAN RAMON LUKE APRNA S 626.8 Dysfunctional Uterine Bleeding 04/02/2009 CHANEL LUKE APRNNDA S 788.1 Pain During Urination (dysuria) 04/02/2009 626.8 Dysfunctional Uterine Bleeding 04/02/2009 788.1 Pain During Urination (dysuria) 04/02/2009 626.8 Dysfunctional Uterine Bleeding 04/02/2009 788.1 Pain During Urination (dysuria) 04/02/2009 WERDER DOKIANAEN F 626.8 Dysfunctional Uterine Bleeding 04/02/2009 WERDER [...] 788.1 Pain During Urination (dysuria) 04/02/2009 TI ONEILL JOSESITO S 626.8 Dysfunctional Uterine Bleeding 04/02/2009 TI BOOT AND SHOE REPAIRMAN, JOSESITO S 788.1 Pain During Urination (dysuria) 05/09/2009 487.1 Influenza, With Other Respiratory Manifestations 05/09/2009 780.60 Fever [as Symptom] 05/09/2009 WERDER DO ONEAL F 487.1 Influenza, With Other Respiratory [...] 05/09/2009 780.60 Fever [as Symptom] 05/09/2009 TI BOOT AND SHOE REPAIRMAN, JOSESITO S 487.1 Influenza, With Other Respiratory Manifestations 05/09/2009 TI BOOT AND SHOE REPAIRMAN, JOSESITO S 780.60 Fever [as Symptom] 05/09/2009 487.1 Influenza, With Other Respiratory Manifestations 05/09/2009 780.60 Fever [as Symptom] 05/09/2009 487.1 Influenza, With Other Respiratory Manifestations 05/09/2009 780.60 Fever [as Symptom] 05/09/2009 WERDER DO, ONEAL F 487.1 Influenza, With Other Respiratory Manifestations 05/09/2009 WERDER DO, ONEAL F 780.60 Fever [as Symptom] 05/09/2009 TI BOOT AND SHOE REPAIRMAN, JOSESITO S 487.1 Influenza, With Other Respiratory Manifestations 05/09/2009 TI BOOT AND SHOE REPAIRMAN, JOSESITO S 780.60 Fever [as Symptom] 05/09/2009 MAXIMINO KHANNA MD 487.1 Influenza, With Other Respiratory Manifestations 05/09/2009 MAXIMINO KHANNA MD 780.60 Fever [as Symptom] 05/09/2009 MARIN DO, ALINA K 487.1 Influenza, With Other Respiratory Manifestations 05/09/2009 MARIN DO, ALINA K 780.60 Fever [as Symptom] 05/09/2009 TI BOOT AND SHOE REPAIRMAN, JOSESITO S 487.1 Influenza, With Other Respiratory Manifestations 05/09/2009 TI BOOT AND SHOE REPAIRMAN, JOSESITO S 780.60 Fever [as Symptom] 05/09/2009 GILLIAM MAIMARLENE 487.1 Influenza, With Other Respiratory Manifestations 05/09/2009 GILLIAM BOOT AND SHOE REPAIRMANMARLENE 780.60 Fever [as Symptom] 05/09/2009 TI BOOT AND SHOE REPAIRMANCHANEL UribeNDA S 487.1 Influenza, With Other Respiratory Manifestations 05/09/2009 CHANEL LUKE APRNNDA S 780.60 Fever [as Symptom] 07/31/2009 611.6 Nonpuerperal Galactorrhea Left 07/31/2009 WERDER DOKIANAEN F 611.6 Nonpuerperal Galactorrhea Left 07/31/2009 WERDER DOKIANAEN F 611.6 Nonpuerperal Galactorrhea Left 07/31/2009 611.6 Nonpuerperal Galactorrhea Left 07/31/2009 MARIN DOAARONA K 611.6 Nonpuerperal Galactorrhea Left 07/31/2009 MARIN DOAARONA K 611.6 Nonpuerperal Galactorrhea Left 07/31/2009 611.6 Nonpuerperal Galactorrhea Left 07/31/2009 JUAN RAMON LUKE APRNA S 611.6 Nonpuerperal Galactorrhea Left 07/31/2009 611.6 Nonpuerperal Galactorrhea Left 07/31/2009 611.6 Nonpuerperal Galactorrhea Left 07/31/2009 WERDER DOKIANAEN F 611.6 Nonpuerperal Galactorrhea Left 07/31/2009 JOSESITO LUKE APRN S 611.6 Nonpuerperal Galactorrhea Left 07/31/2009 MAXIMINO KHANNA MD 611.6 Nonpuerperal Galactorrhea Left 07/31/2009 ALINA MARIN DO K 611.6 Nonpuerperal Galactorrhea Left 07/31/2009 JOSESITO LUKE APRN S 611.6 Nonpuerperal Galactorrhea Left 07/31/2009 TAWANA ONEILL MARLENE SANDERSON 611.6 Nonpuerperal Galactorrhea Left 07/31/2009 JOSESITO LUKE APRN S 611.6 Nonpuerperal Galactorrhea Left 01/17/2010 616.10 Vaginitis And Vulvovaginitis, Unspecified 01/17/2010 709.01 Vitiligo 01/17/2010 BON DOKIANAEN F 616.10 Vaginitis And Vulvovaginitis, Unspecified 01/17/2010 KIANA CROCKETT DOEN F 709.01 Vitiligo 01/17/2010 KIANA CROCKETT DOEN F 616.10 Vaginitis And Vulvovaginitis, Unspecified 01/17/2010 ONEAL CROCKETT DO F 709.01 Vitiligo 01/17/2010 616.10 Vaginitis And Vulvovaginitis, Unspecified 01/17/2010 709.01 Vitiligo 01/17/2010 ALINA MARIN DO K 616.10 Vaginitis And Vulvovaginitis, Unspecified 01/17/2010 ALINA MARIN DO K 709.01 Vitiligo 01/17/2010 ALINA MARIN DO K 616.10 Vaginitis And Vulvovaginitis, Unspecified 01/17/2010 ALINA MARIN DO K 709.01 Vitiligo 01/17/2010 616.10 Vaginitis And Vulvovaginitis, Unspecified 01/17/2010 709.01 Vitiligo 01/17/2010 JOSESITO LUKE APRN S 616.10 Vaginitis And Vulvovaginitis, Unspecified 01/17/2010 JOSESITO LUKE APRN S 709.01 Vitiligo 01/17/2010 616.10 Vaginitis And Vulvovaginitis, Unspecified 01/17/2010 709.01 Vitiligo 01/17/2010 616.10 Vaginitis And Vulvovaginitis, Unspecified 01/17/2010 709.01 Vitiligo 01/17/2010 WERDER ONEAL HORTON F 616.10 Vaginitis And Vulvovaginitis, Unspecified 01/17/2010 WERDER , ONEAL F 709.01 Vitiligo 01/17/2010 TI ONEILL, JOSESITO S 616.10 Vaginitis And Vulvovaginitis, Unspecified 01/17/2010 TI ONEILL, JOSESITO S 709.01 Vitiligo 01/17/2010 MAXIMINO KHANNA MD 616.10 Vaginitis And Vulvovaginitis, Unspecified 01/17/2010 MAXIMINO KHANNA MD 709.01 Vitiligo 01/17/2010 MARIN DO, ALINA K 616.10 Vaginitis And Vulvovaginitis, Unspecified 01/17/2010 MARIN DO, ALINA K 709.01 Vitiligo 01/17/2010 TI ONEILL JOSESITO S 616.10 Vaginitis And Vulvovaginitis, Unspecified 01/17/2010 TI ONEILL JOSESITO S 709.01 Vitiligo 01/17/2010 TAWANA ONEILL MARLENE KIN 616.10 Vaginitis And Vulvovaginitis, Unspecified 01/17/2010 TAWANA ONEILL MARLENE KIN 709.01 Vitiligo 01/17/2010 TI ONEILL JOSESITO S 616.10 Vaginitis And Vulvovaginitis, Unspecified 01/17/2010 TI ONEILL, JOESSITO S 709.01 Vitiligo 02/28/2010 599.0 Urinary Tract Infection, Site Not Specified 02/28/2010 KIANA CROCKETT DOEN F 599.0 Urinary Tract Infection, Site Not [...] Urinary Tract Infection, Site Not Specified 02/28/2010 JUAN RAMON LUKE APRNA S 599.0 Urinary Tract Infection, Site Not Specified 02/28/2010 MAXIMINO KHANNA MD 599.0 Urinary Tract Infection, Site Not Specified 02/28/2010 ALINA MARIN DO K 599.0 Urinary Tract Infection, Site Not Specified 02/28/2010 CHANEL LUKE APRNNDA S 599.0 Urinary Tract Infection, Site Not Specified 02/28/2010 TAWANA ONEILL MARLENE SANDERSON 599.0 Urinary Tract Infection, Site Not Specified [...] APRNNDA S 381.81 Eustachian Tube Dysfunction 12/24/2010 TAWANA ONEILLMARLENE 381.81 Eustachian Tube Dysfunction 12/24/2010 JOSESITO LUKE [...] K 726.32 Lateral Epicondylitis Elbow Region 01/28/2011 307.42 [...] Disorder Of Initiating Or Maintaining Sleep 01/28/2011 OENAL CROCKETT DO 726.32 Lateral Epicondylitis Elbow Region 01/28/2011 JOSESITO LUKE APRN S 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 01/28/2011 TI BOOT AND SHOE REPAIRMAN, JOSESITO S 726.32 Lateral Epicondylitis Elbow Region 01/28/2011 MAXIMINO KHANNA MD 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 01/28/2011 MAXIMINO KHANNA MD 726.32 Lateral Epicondylitis Elbow Region 01/28/2011 ALINA MARIN DO K 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 01/28/2011 ALINA MARIN DO K 726.32 Lateral Epicondylitis Elbow Region 01/28/2011 CHANEL LUKE APRNNDA S 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 01/28/2011 CHANEL LUKE APRNNDA S 726.32 Lateral Epicondylitis Elbow Region 01/28/2011 TAWANA ONEILL MARLENE KIN 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 01/28/2011 TAWANA ONEILL MARLENE KIN 726.32 Lateral Epicondylitis Elbow Region 01/28/2011 CHANEL LUKE APRNNDA S 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 01/28/2011 JUAN RAMON LUKE APRNA S 726.32 Lateral Epicondylitis Elbow Region 03/19/2011 461.9 Sinusitis Acute 03/19/2011 ONEAL CROCKETT DO F 461.9 Sinusitis Acute 03/19/2011 ONEAL CROCKETT DO F 461.9 Sinusitis Acute 03/19/2011 461.9 Sinusitis Acute 03/19/2011 ALINA MARIN DO 461.9 Sinusitis Acute 03/19/2011 ALINA MARIN DO K 461.9 Sinusitis Acute 03/19/2011 461.9 Sinusitis Acute 03/19/2011 JOSESITO LUKE APRN S 461.9 Sinusitis Acute 03/19/2011 461.9 Sinusitis Acute 03/19/2011 461.9 Sinusitis Acute 03/19/2011 OENAL CROCKETT DO F 461.9 Sinusitis Acute 03/19/2011 JOSESITO LUKE APRN S 461.9 Sinusitis Acute 03/19/2011 MAXIMINO KHANNA MD 461.9 Sinusitis Acute 03/19/2011 ALINA MARIN DO 461.9 Sinusitis Acute 03/19/2011 JUAN RAMON LUKE APRNA S 461.9 Sinusitis Acute 03/19/2011 TAWANA ONEILL MARLENE SANDERSON 461.9 Sinusitis Acute 03/19/2011 JOSESITO LUKE APRN 461.9 Sinusitis Acute 03/25/2011 V72.31 Full Charge Bookkeeper Exam, Routine 03/25/2011 ONEAL CROCKETT DO V72.31 Full Charge Bookkeeper Exam, Routine 03/25/2011 ONEAL CROCKETT DO V72.31 Full Charge Bookkeeper Exam, Routine 03/25/2011 V72.31 Full Charge Bookkeeper Exam, Routine 03/25/2011 MARIN DOALINA K V72.31 Full Charge Bookkeeper Exam, Routine 03/25/2011 MARIN DOALINA K V72.31 Full Charge Bookkeeper Exam, Routine 03/25/2011 V72.31 Full Charge Bookkeeper Exam, Routine 03/25/2011 JOSESITO LUKE APRN S V72.31 Full Charge Bookkeeper Exam, Routine 03/25/2011 V72.31 Full Charge Bookkeeper Exam, Routine 03/25/2011 V72.31 Full Charge Bookkeeper Exam, Routine 03/25/2011 ONEAL CROCKETT DO V72.31 Full Charge Bookkeeper Exam, Routine 03/25/2011 JOSESITO LUKE APRN S V72.31 Full Charge Bookkeeper Exam, Routine 03/25/2011 JEY ALATORRE, MAXIMINO V72.31 Full Charge Bookkeeper Exam, Routine 03/25/2011 MARIN DOALINA K V72.31 Full Charge Bookkeeper Exam, Routine 03/25/2011 JOSESITO LUKE APRN S V72.31 Full Charge Bookkeeper Exam, Routine 03/25/2011 TAWANA ONEILL MARLENE SANDERSON V72.31 Full Charge Bookkeeper Exam, Routine 03/25/2011 JOSESITO LUKE APRN S V72.31 Full Charge Bookkeeper Exam, Routine 05/23/2011 789.00 Abdominal Pain Feels [...] Abdominal Pain Feels Crampy / Colicky 05/23/2011 CHANEL LUKE APRNNDA S 789.00 Abdominal Pain Feels Crampy / Colicky 05/23/2011 TAWANA ONEILL MARLENE SANDERSON 789.00 Abdominal Pain Feels Crampy / Colicky 05/23/2011 TI ONEILL JOSESITO S 789.00 Abdominal Pain Feels Crampy / Colicky 05/30/2011 786.09 Respiratory Abnormality Other 05/30/2011 ONEAL CROCKETT DO F 786.09 Respiratory Abnormality Other 05/30/2011 ONEAL CROCKETT DO 786.09 Respiratory Abnormality Other 05/30/2011 786.09 Respiratory [...] MD 786.09 Respiratory Abnormality Other 05/30/2011 MARIN DO, ALINA K 786.09 Respiratory Abnormality Other 05/30/2011 JOSESITO LUKE APRN S 786.09 Respiratory Abnormality Other 05/30/2011 TAWANA ONEILL MARLENE ELMOREH 786.09 Respiratory Abnormality Other 05/30/2011 JOSESITO LUKE APRN S 786.09 Respiratory Abnormality Other 06/13/2011 528.00 Stomatitis And Mucositis Unspecified 06/13/2011 ONEAL CROCKETT DO F 528.00 Stomatitis And Mucositis Unspecified 06/13/2011 ONEAL CROCKETT DO F 528.00 Stomatitis And Mucositis Unspecified 06/13/2011 528.00 Stomatitis And Mucositis Unspecified 06/13/2011 ALINA MARIN DO K 528.00 Stomatitis And Mucositis Unspecified 06/13/2011 ALINA MARIN DO K 528.00 Stomatitis And Mucositis Unspecified 06/13/2011 [...] MAXIMINO 528.00 Stomatitis And Mucositis Unspecified 06/13/2011 ALINA MARIN DO K 528.00 Stomatitis And Mucositis Unspecified 06/13/2011 CHANEL LUKE APRNNDA S 528.00 Stomatitis And Mucositis Unspecified 06/13/2011 TAWANA ONEILL MARLENE SANDERSON 528.00 Stomatitis And Mucositis Unspecified 06/13/2011 CHANEL LUKE APRNNDA S 528.00 Stomatitis And Mucositis Unspecified 08/19/2011 599.0 Urinary Tract Infection Site Not Specified 08/19/2011 724.2 Lumbago/ Low Back Pain 08/19/2011 ONEAL CROCKETT DO 599.0 Urinary Tract Infection Site Not Specified 08/19/2011 WERDER DO, ONEAL F 724.2 Lumbago/ Low Back Pain 08/19/2011 ONEAL CROCKETT DO F 599.0 Urinary Tract Infection Site Not Specified 08/19/2011 ONEAL CROCKETT DO F 724.2 Lumbago/ Low Back Pain 08/19/2011 599.0 Urinary Tract Infection Site Not Specified 08/19/2011 724.2 Lumbago/ Low Back Pain 08/19/2011 MARIN DO ALINA K 599.0 Urinary Tract Infection Site Not Specified 08/19/2011 MARIN DO ALINA K 724.2 Lumbago/ Low Back Pain 08/19/2011 MARIN DO, ALINA K 599.0 Urinary Tract Infection Site Not Specified 08/19/2011 MARIN DO ALINA K 724.2 Lumbago/ Low Back Pain [...] S 724.2 Lumbago/ Low Back Pain 08/19/2011 GILLIAMBLANK ONEILL, MARLENE SANDERSON 599.0 Urinary Tract Infection Site Not Specified 08/19/2011 TAWANA ONEILL, MARLENE SANDERSON 724.2 Lumbago/ Low Back Pain [...] MARIN DO 079.99 Unspecified Viral Infection 10/02/2011 JOSESITO LUKE APRN S 079.99 Unspecified Viral Infection 10/02/2011 TAWANA ONEILL MARLENE SANDERSON 079.99 Unspecified Viral Infection 10/02/2011 JOSESITO LUKE APRN S 079.99 Unspecified Viral Infection 10/21/2011 728.85 Muscle Spasm 10/21/2011 ONEAL CROCKETT DO 728.85 Muscle Spasm 10/21/2011 ONEAL CROCKETT DO 728.85 Muscle Spasm 10/21/2011 728.85 Muscle Spasm 10/21/2011 ALINA MARIN DO K 728.85 Muscle Spasm 10/21/2011 ALINA MARIN DO K 728.85 Muscle Spasm 10/21/2011 728.85 Muscle Spasm 10/21/2011 CHANEL LUKE APRNNDA S 728.85 Muscle Spasm 10/21/2011 728.85 Muscle Spasm 10/21/2011 728.85 Muscle Spasm 10/21/2011 ONEAL CROCKETT DO 728.85 Muscle Spasm 10/21/2011 JUAN RAMON LUKE APRNA S 728.85 Muscle Spasm 10/21/2011 MAXIMINO KHANNA MD 728.85 Muscle Spasm 10/21/2011 ALINA MARIN DO K 728.85 Muscle Spasm 10/21/2011 CHANEL LUKE APRNNDA S 728.85 Muscle Spasm 10/21/2011 TAWANA ONEILL MARLENE SANDERSON 728.85 Muscle Spasm 10/21/2011 CHANEL LUKE APRNNDA S 728.85 Muscle Spasm 10/28/2011 V18.0 FAMILY [...] OF DIABETES MELLITUS 12/18/2011 724.2 LUMBAGO 12/18/2011 [facility] DO F 724.2 LUMBAGO 12/18/2011 ONEAL CROCKETT DO F 724.2 LUMBAGO 12/18/2011 724.2 LUMBAGO 12/18/2011 MARIN ALINA HORTON K 724.2 LUMBAGO 12/18/2011 ALINA MARIN DO K 724.2 LUMBAGO 12/18/2011 724.2 LUMBAGO 12/18/2011 JOSESITO LUKE APRN S 724.2 LUMBAGO 12/18/2011 724.2 LUMBAGO 12/18/2011 724.2 LUMBAGO 12/18/2011 [facility] DO F 724.2 LUMBAGO 12/18/2011 JOSESITO LUKE APRN S 724.2 LUMBAGO 12/18/2011 MAXIMINO KHANNA MD 724.2 LUMBAGO 12/18/2011 MARIN DOALINA K 724.2 LUMBAGO 12/18/2011 JUAN RAMON LUKE APRNA S 724.2 LUMBAGO 12/18/2011 TAWANA ONEILL MARLENE KIN 724.2 LUMBAGO 12/18/2011 JOSESITO LUKE APRN S 724.2 LUMBAGO 01/06/2012 386.10 PERIPHERAL VERTIGO UNSPECIFIED 01/06/2012 ONEAL CROCKETT DO F 386.10 PERIPHERAL VERTIGO UNSPECIFIED 01/06/2012 ONEAL CROCKETT DO F 386.10 PERIPHERAL VERTIGO UNSPECIFIED 01/06/2012 386.10 PERIPHERAL VERTIGO UNSPECIFIED 01/06/2012 ALINA MARIN DO K 386.10 PERIPHERAL VERTIGO UNSPECIFIED 01/06/2012 ALINA MARIN DO K 386.10 PERIPHERAL VERTIGO UNSPECIFIED 01/06/2012 386.10 [...] APRN S 386.10 PERIPHERAL VERTIGO UNSPECIFIED 01/06/2012 TAWANA ONEILL MARLENE SANDERSON 386.10 PERIPHERAL VERTIGO UNSPECIFIED 01/06/2012 JOSESITO LUKE [...] UNCONTROLLED 06/23/2012 790.29 OTHER ABNORMAL GLUCOSE 06/23/2012 ONEAL CROCKETT DO F 790.29 OTHER ABNORMAL GLUCOSE 06/23/2012 KIANA CROCKETT DOEN F 790.29 OTHER ABNORMAL GLUCOSE 06/23/2012 790.29 OTHER ABNORMAL GLUCOSE 06/23/2012 MARIN DO ALINA K 790.29 OTHER ABNORMAL GLUCOSE 06/23/2012 MARIN DO ALINA K 790.29 OTHER ABNORMAL GLUCOSE 06/23/2012 790.29 OTHER ABNORMAL GLUCOSE 06/23/2012 JUAN RAMON LUKE APRNA S 790.29 OTHER ABNORMAL GLUCOSE 06/23/2012 790.29 OTHER ABNORMAL GLUCOSE 06/23/2012 790.29 OTHER ABNORMAL GLUCOSE 06/23/2012 ONEAL CROCKETT DO F 790.29 OTHER ABNORMAL GLUCOSE 06/23/2012 JUAN RAMON LUKE APRNA S 790.29 OTHER ABNORMAL GLUCOSE 06/23/2012 MAXIMINO KHANNA MD 790.29 OTHER ABNORMAL GLUCOSE 06/23/2012 MARIN DO ALNIA K 790.29 OTHER ABNORMAL GLUCOSE 06/23/2012 JUAN RAMON LUKE APRNA S 790.29 OTHER ABNORMAL GLUCOSE 06/23/2012 TAWANA ONEILL MARLENE SANDERSON 790.29 OTHER ABNORMAL GLUCOSE 06/23/2012 JUAN RAMON LUKE APRNA S 790.29 OTHER ABNORMAL GLUCOSE 06/28/2012 296.90 MOOD DISORDER 06/28/2012 ONEAL CROCKETT DO F 296.90 MOOD DISORDER 06/28/2012 ONEAL CROCKETT DO F 296.90 MOOD DISORDER 06/28/2012 296.90 MOOD DISORDER 06/28/2012 MARIN DO ALINA K 296.90 MOOD DISORDER 06/28/2012 MARIN DO ALINA K 296.90 MOOD DISORDER 06/28/2012 296.90 MOOD DISORDER 06/28/2012 JOSESITO LUKE APRN S 296.90 MOOD DISORDER 06/28/2012 296.90 MOOD DISORDER 06/28/2012 296.90 MOOD DISORDER 06/28/2012 ONEAL CROCKETT DO 296.90 MOOD DISORDER 06/28/2012 JOSESITO LUKE APRN S 296.90 MOOD DISORDER 06/28/2012 MAXIMINO KHANNA MD 296.90 MOOD DISORDER 06/28/2012 ALINA MARIN DO K 296.90 MOOD DISORDER 06/28/2012 JOSESITO LUKE APRN [...] MARIN DO K 780.52 INSOMNIA UNSPECIFIED 07/21/2012 JOSESITO LUKE APRN S 780.52 INSOMNIA UNSPECIFIED 07/21/2012 TAWANA ONEILL MARLENE KIN 780.52 INSOMNIA UNSPECIFIED 08/14/2012 ONEAL CROCKETT DO [...] ONEAL CROCKETT DO 611.71 BREAST PAIN 09/16/2012 CHANEL LUKE APRNNDA S 611.71 BREAST PAIN 09/16/2012 MAXIMINO KHANNA MD 611.71 BREAST PAIN 09/16/2012 ALINA MARIN DO K 611.71 BREAST PAIN 09/16/2012 JUAN RAMON LUKE APRNA S 611.71 BREAST PAIN 09/16/2012 MARLENE GILLIAM [...] JOSESITO LUKE APRN S 627.8 PERIMENOPAUSE 10/14/2012 JUAN RAMON LUKE APRNA S V73.81 HPV SCREENING 10/14/2012 CHANEL LUKE APRNNDA S V74.5 STD SCREEN 10/14/2012 JUAN RAMON LUKE APRNA S V76.2 CERVICAL CANCER SCREENING (PAP SMEAR) 10/14/2012 627.8 PERIMENOPAUSE 10/14/2012 V73.81 HPV SCREENING 10/14/2012 V74.5 STD SCREEN 10/14/2012 V76.2 CERVICAL CANCER SCREENING (PAP SMEAR) 10/14/2012 627.8 PERIMENOPAUSE 10/14/2012 V73.81 HPV SCREENING 10/14/2012 V74.5 STD SCREEN 10/14/2012 V76.2 CERVICAL CANCER SCREENING (PAP SMEAR) 10/14/2012 ONEAL CROCKETT DO 627.8 PERIMENOPAUSE 10/14/2012 ONEAL CROCKETT DO F V73.81 HPV SCREENING 10/14/2012 ONEAL CROCKETT DO F V74.5 STD SCREEN 10/14/2012 ONEAL CROCKETT DO F V76.2 CERVICAL CANCER SCREENING (PAP SMEAR) 10/14/2012 JOSESITO LUKE APRN S 627.8 PERIMENOPAUSE 10/14/2012 JUAN RAMON LUKE APRNA S V73.81 HPV SCREENING 10/14/2012 JUAN RAMON LUKE APRNA S V74.5 STD SCREEN 10/14/2012 JUAN RAMON LUKE APRNA S V76.2 CERVICAL CANCER SCREENING (PAP SMEAR) 10/14/2012 JEY ALATORRE, MAXIMINO 627.8 PERIMENOPAUSE 10/14/2012 MAXIMINO KHANNA MD V73.81 HPV SCREENING 10/14/2012 MAXIMINO KHANNA MD V74.5 STD SCREEN 10/14/2012 MAXIMINO KHANNA MD V76.2 CERVICAL CANCER SCREENING (PAP SMEAR) 10/14/2012 MARIN DOAARONA K 627.8 PERIMENOPAUSE 10/14/2012 MARIN DO ALINA K V73.81 HPV SCREENING 10/14/2012 MARIN DO ALINA K V74.5 STD SCREEN 10/14/2012 TANIA HORTONALINA K V76.2 CERVICAL CANCER SCREENING (PAP SMEAR) 10/14/2012 JUAN RAMON LUKE APRNA S 627.8 PERIMENOPAUSE 10/14/2012 CHANEL LUKE APRNNDA S V73.81 HPV SCREENING 10/14/2012 TI ONEILL, JOSESITO S V74.5 STD SCREEN 10/14/2012 CHANEL LUKE APRNNDA S V76.2 CERVICAL CANCER SCREENING (PAP SMEAR) 10/14/2012 TAWANA ONEILL MARLENE SANDERSON 627.8 PERIMENOPAUSE 10/14/2012 TAWANA ONEILL MARLENE SANDERSON V73.81 HPV SCREENING 10/14/2012 TAWANA ONEILL MARLENE ELMOREH V74.5 STD SCREEN 10/14/2012 TAWANA ONEILL MARLENE ELMOREH V76.2 CERVICAL CANCER SCREENING (PAP SMEAR) 10/20/2012 296.80 MO BIPOLAR NOS 10/20/2012 CHANEL LUKE APRNNDA S 296.80 MO BIPOLAR NOS 10/20/2012 296.80 MO BIPOLAR NOS 10/20/2012 296.80 MO BIPOLAR NOS 10/20/2012 ONEAL CROCKETT DO F 296.80 MO BIPOLAR NOS 10/20/2012 JUAN RAMON LUKE APRNA S 296.80 MO BIPOLAR NOS 10/20/2012 MAXIMINO KHANNA MD 296.80 MO BIPOLAR NOS 10/20/2012 ALINA MARIN DO K 296.80 MO BIPOLAR NOS 10/20/2012 CHANEL LUKE APRNNDA S 296.80 MO BIPOLAR NOS 10/20/2012 TAWANA ONEILL MARLENE ELMOREH 296.80 MO BIPOLAR NOS 01/24/2013 789.07 ABDOMINAL PAIN GENERALIZED 01/24/2013 ONEAL CROCKETT DO F 789.07 ABDOMINAL PAIN GENERALIZED 01/24/2013 JUAN RAMON LUKE APRNA S 789.07 ABDOMINAL PAIN GENERALIZED 01/24/2013 MAXIMINO KHANNA MD 789.07 ABDOMINAL PAIN GENERALIZED 01/24/2013 ALINA MARIN DO K 789.07 ABDOMINAL PAIN GENERALIZED 01/24/2013 CHANEL LUKE APRNNDA S 789.07 ABDOMINAL PAIN GENERALIZED 01/24/2013 TAWANA ONEILL MARLENE KIN 789.07 ABDOMINAL PAIN GENERALIZED 03/03/2013 ONEAL CROCKETT DO F 787.03 VOMITING ALONE 03/03/2013 ONEAL CROCKETT DO F V40.2 OTHER MENTAL PROBLEMS 03/03/2013 JOSESITO LUKE APRN S 787.03 VOMITING ALONE 03/03/2013 JOSESITO LUKE APRN S V40.2 OTHER MENTAL PROBLEMS 03/03/2013 MAXIMINO KHANNA MD 787.03 VOMITING ALONE 03/03/2013 MAXIMINO KHANNA MD V40.2 OTHER MENTAL PROBLEMS 03/03/2013 ALINA MARIN DO K 787.03 VOMITING ALONE 03/03/2013 AARON MARIN DOA K V40.2 OTHER MENTAL PROBLEMS 03/03/2013 JOSESITO LUKE APRN S 787.03 VOMITING ALONE 03/03/2013 JOSESITO LUKE APRN S V40.2 OTHER MENTAL PROBLEMS 03/03/2013 TAWANA ONEILL MARLENE KIN 787.03 VOMITING ALONE 03/03/2013 TAWANA ONEILL MARLENE KIN V40.2 OTHER MENTAL PROBLEMS 05/20/2013 MAXIMINO KHANNA MD 923.00 CONTUSION OF SHOULDER REGION 05/20/2013 ALINA MARIN DO K 923.00 CONTUSION OF SHOULDER REGION 05/20/2013 JOSESITO LUKE APRN S 923.00 CONTUSION OF SHOULDER REGION 05/20/2013 TAWANA ONEILL MARLENE KIN 923.00 CONTUSION OF SHOULDER REGION 05/25/2013 ALINA MARIN DO K 112.1 CANDIDIASIS VAGINAL 05/25/2013 JOSESITO LUKE [...] Ot E000.8 OTHER EXTERNAL CAUSE STATUS 09/26/2013 CANDY PIMENTELKALINA Ot E928.9 ACCIDENT NOS 09/27/2013 TI MAIJOSESITO 786.05 SHORTNESS OF BREATH 09/27/2013 TAWANA MAIMARLENE 786.05 SHORTNESS OF BREATH 11/12/2013 KUSUM ALATORRE, KAVON Roman Ot 724.5 BACKACHE NOS 11/12/2013 KUSUM ALATORRE, KAVON Roman Ot 789.09 ABDOMINAL PAIN, OTHER SPECIFIED SITE 05/19/2015 V 938624 Abdominal Pain VUONG, DENNIS D 05/19/2015 V R10.32 Left lower quadrant pain VUONG, DENNIS D 07/20/2015 BRANDAU, BENNIE A V 12 Back Pain BRANDAU, BENNIE A 07/20/2015 BRANDAU, BENNIE A V [id number] Congestion BRANDAU, BENNIE A 07/20/2015 BRANDAU, BENNIE A V 52 Headache BRANDAU, BENNIE A 04/06/2016 LEACH, ANA K V Other LEACH, ANA K 04/06/2016 LEACH, ANA K V M79.601 Pain In Right Arm LEACH, ANA K 04/06/2016 LEACH, ANA K V M79.602 Pain In Left Arm LEACH, ANA K 04/06/2016 LEACH, ANA K V R20.2 Paresthesia of skin LEACH, ANA K 05/09/2016 BASSETT, P SELENA V [id number] Otalgia BASSETT, P SELENA 05/09/2016 BASSETT, P [...] WORKING R51 Headache 01/04/2017 MAXIMINO DUNN V 261135 Arm Pain MAXIMINO DUNN 01/04/2017 MAXIMINO DUNN V M77.9 Enthesopathy, unspecified MAXIMINO DUNN 03/30/2017 KAVON NOE MD, Ot E11.9 TYPE 2 DIABETES MELLITUS WITHOUT COMPLIC 03/30/2017 KAVON NOE MD Ot F32.9 MAJOR DEPRESSIVE DISORDER, SINGLE EPISOD 03/30/2017 KAVON NOE MD Ot F41.8 OTHER SPECIFIED ANXIETY DISORDERS 03/30/2017 KAVON NOE MD Ot G47.00 INSOMNIA, UNSPECIFIED 03/30/2017 KAVON NOE MD Ot R06.02 SHORTNESS OF BREATH 03/30/2017 KAVON NOE MD Ot Z79.84 JAIL (CURRENT) USE OF ORAL HYPOGLYC 03/30/2017 KAVON [...] BREATH 04/03/2017 KAVON NOE MD Ot 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 04/03/2017 KAVON NOE MD, Ot Z90.49 ACQUIRED ABSENCE OF OTHER SPECIFIED PART 04/03/2017 KAVON NOE MD, Ot Z98.51 TUBAL LIGATION STATUS 10/27/2017 SREEKANTH WILKINS [employer] REPAIRMAN Ot N63.10 UNSPECIFIED LUMP IN THE RIGHT BREAST, UN 10/27/2017 SREEKANTH WILKINS [employer] REPAIRMAN Ot N63.21 UNSPECIFIED LUMP IN THE LEFT BREAST, UPP 11/13/2017 SREEKANTH WILKINS R [employer]OE REPAIRMAN Ot N63.10 UNSPECIFIED LUMP IN THE RIGHT BREAST, UN 11/13/2017 SREEKANTH WILKINS [employer] REPAIRMAN Ot N63.21 UNSPECIFIED LUMP IN THE LEFT BREAST, UPP 12/17/2017 SREEKANTH WILKINS [employer] REPAIRMAN Ot N63.10 UNSPECIFIED LUMP IN THE RIGHT BREAST, UN 12/17/2017 SREEKANTH WILKINS APRN Ot N63.21 UNSPECIFIED LUMP IN THE LEFT BREAST, UPP 12/17/2017 CASEY MANCIA MD, Ot E11.9 TYPE 2 DIABETES MELLITUS WITHOUT COMPLIC 12/17/2017 CASEY MANCIA MD, Ot F32.9 MAJOR DEPRESSIVE DISORDER, SINGLE EPISOD 12/17/2017 CASEY MANCIA MD, Ot F41.9 ANXIETY DISORDER, UNSPECIFIED 12/17/2017 CASEY MANCIA MD, Ot N83.202 UNSPECIFIED OVARIAN CYST, LEFT SIDE 12/17/2017 CASEY MANCIA MD, Ot R10.84 GENERALIZED ABDOMINAL PAIN 12/17/2017 CASEY MANCIA MD, Ot 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 12/17/2017 CASEY [...] THE RIGHT BREAST, UN 12/17/2017 SREEKANTH WILKINS APRN Ot N63.21 UNSPECIFIED LUMP [...] PAIN 12/21/2017 CASEY MANCIA MD, Ot Z79.84 JAIL (CURRENT) USE OF ORAL HYPOGLYC 12/21/2017 CASEY MANCIA MD, Ot Z87.59 PERSONAL HISTORY OF COMP OF PREG, CHLDBR 12/21/2017 CASEY MANCIA MD, Ot Z88.1 ALLERGY STATUS TO OTHER ANTIBIOTIC AGENT 12/21/2017 CASEY MANCIA MD, Ot Z88.8 ALLERGY STATUS TO OTH DRUG/MEDS/BIOL SUB 12/21/2017 CASEY MANCIA MD, Ot Z90.49 ACQUIRED ABSENCE OF OTHER SPECIFIED PART 01/27/2018 SREEKANTH WILKINS [employer] REPAIRMAN Ot N63.10 UNSPECIFIED LUMP IN THE RIGHT BREAST, UN 01/27/2018 SREEKANTH WILKINS [employer] REPAIRMAN Ot N63.21 UNSPECIFIED LUMP IN THE LEFT BREAST, UPP 01/27/2018 KAVON NOE MD Ot E11.9 TYPE 2 DIABETES MELLITUS WITHOUT COMPLIC 01/27/2018 KAVON NOE MD Ot F32.9 MAJOR DEPRESSIVE DISORDER, SINGLE EPISOD 01/27/2018 KAVON NOE MD, Ot F41.9 ANXIETY DISORDER, UNSPECIFIED 01/27/2018 KAVON NOE MD, Ot G47.9 SLEEP DISORDER, UNSPECIFIED 01/27/2018 KAVON NOE MD Ot R21 RASH AND OTHER NONSPECIFIC SKIN ERUPTION 01/27/2018 KAVON NOE MD Ot R51 HEADACHE 01/27/2018 KAVON NOE MD Ot T14.8XXA OTHER INJURY OF UNSPECIFIED BODY REGION, 01/27/2018 KAVON NOE MD Ot W57.XXXA BIT/STUNG BY NONVENOM INSECT OTH NONVE 01/27/2018 KAVON NOE MD, Ot Z79.84 JAIL (CURRENT) USE OF ORAL HYPOGLYC 01/27/2018 KAVON NOE MD Ot Z88.1 ALLERGY STATUS TO OTHER ANTIBIOTIC AGENT 01/27/2018 KAVON NOE MD Ot Z88.8 ALLERGY STATUS TO OTH DRUG/MEDS/BIOL SUB 01/27/2018 KAVON NOE MD Ot Z90.49 ACQUIRED ABSENCE OF OTHER SPECIFIED PART 01/27/2018 KAVON NOE MD Ot Z98.51 TUBAL LIGATION STATUS 02/01/2018 KAVON NOE MD Ot E11.9 TYPE 2 DIABETES MELLITUS WITHOUT COMPLIC 02/01/2018 KAVON NOE MD Ot F32.9 MAJOR DEPRESSIVE DISORDER, SINGLE EPISOD 02/01/2018 KAVON NOE MD Ot F41.9 ANXIETY DISORDER, UNSPECIFIED 02/01/2018 KAVON NOE MD, Ot G47.9 SLEEP DISORDER, UNSPECIFIED 02/01/2018 KAVON NOE MD Ot R21 RASH AND OTHER NONSPECIFIC SKIN ERUPTION 02/01/2018 KAVON NOE MD Ot R51 HEADACHE 02/01/2018 KAVON NOE MD Ot T14.8XXA OTHER INJURY OF UNSPECIFIED BODY REGION, 02/01/2018 KAVON ONE MD Ot W57.XXXA BIT/STUNG BY NONVENOM INSECT OTH NONVE 02/01/2018 KAVON NOE MD Ot Z79.84 JAIL (CURRENT) USE OF ORAL HYPOGLYC 02/01/2018 KAVON NOE MD Ot Z88.1 ALLERGY STATUS TO OTHER ANTIBIOTIC AGENT 02/01/2018 AKVON NOE MD Ot Z88.8 ALLERGY STATUS TO OTH DRUG/MEDS/BIOL SUB 02/01/2018 KUSUM ALATORRE KAVON Roman Ot Z90.49 ACQUIRED ABSENCE OF OTHER SPECIFIED PART 02/01/2018 KAVON NOE MD Ot Z98.51 TUBAL LIGATION STATUS 02/17/2018 SIMONA SANDERSIS Ot E11.9 TYPE 2 DIABETES MELLITUS WITHOUT COMPLIC 02/17/2018 BERNSIMONA BEJARANOIS Ot F32.9 MAJOR DEPRESSIVE DISORDER, SINGLE EPISOD 02/17/2018 BERNOT PEYMAN Ot F41.9 ANXIETY DISORDER, UNSPECIFIED 02/17/2018 BERNOT, PEYMAN Ot K92.0 HEMATEMESIS 02/17/2018 BERNOT, PEYMAN Ot N39.0 URINARY TRACT INFECTION, SITE NOT SPECIF 02/17/2018 BERNOT, PEYMAN Ot R11.10 VOMITING, UNSPECIFIED 02/17/2018 BERNOT, PEYMAN Ot Z79.84 JAIL (CURRENT) USE OF ORAL HYPOGLYC 02/17/2018 BERNOT, PEYMAN Ot Z88.1 ALLERGY STATUS TO OTHER ANTIBIOTIC AGENT 02/17/2018 BERNOT, PEYMAN Ot Z88.8 ALLERGY STATUS TO OTH DRUG/MEDS/BIOL SUB 02/17/2018 BERNOT, PEYMAN Ot Z90.89 ACQUIRED ABSENCE OF OTHER ORGANS 02/17/2018 BERNOT, PEYMAN Ot Z98.51 TUBAL LIGATION STATUS 02/19/2018 SIMONA SANDERSIS Ot E11.9 TYPE 2 DIABETES MELLITUS WITHOUT COMPLIC 02/19/2018 SIMONA SANDERSIS Ot F32.9 MAJOR DEPRESSIVE DISORDER, SINGLE EPISOD 02/19/2018 BERNOT, PEYMAN Ot F41.9 ANXIETY DISORDER, UNSPECIFIED 02/19/2018 BERNOT, PEYMAN Ot K92.0 HEMATEMESIS 02/19/2018 BERNOT, PEYMAN Ot N39.0 URINARY TRACT INFECTION, SITE NOT SPECIF 02/19/2018 BERNOT, PEYMAN Ot R11.10 VOMITING, UNSPECIFIED 02/19/2018 BERNOT, PEYMAN Ot Z79.84 JAIL (CURRENT) USE OF ORAL HYPOGLYC 02/19/2018 BERNOT, PEYMAN Ot Z88.1 ALLERGY STATUS TO OTHER ANTIBIOTIC AGENT 02/19/2018 BERNOT, PEYMAN Ot Z88.8 ALLERGY STATUS TO OTH DRUG/MEDS/BIOL SUB 02/19/2018 BERNOT, PEYMAN Ot Z90.89 ACQUIRED ABSENCE OF OTHER ORGANS 02/19/2018 BERNOT, PEYMAN Ot Z98.51 TUBAL LIGATION STATUS 04/18/2018 CASEY MANCIA MD Ot E11.9 TYPE 2 DIABETES MELLITUS WITHOUT COMPLIC 04/18/2018 CASEY MANCIA MD Ot F32.9 MAJOR DEPRESSIVE DISORDER, SINGLE EPISOD 04/18/2018 CASEY MANCIA MD Ot F41.9 ANXIETY DISORDER, UNSPECIFIED 04/18/2018 CASEY MANCIA MD Ot 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 FASCIAL FIBROMATOSIS 04/18/2018 CASEY MANCIA MD Ot M79.672 PAIN IN LEFT FOOT 04/18/2018 CASEY MANCIA MD Ot 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 04/18/2018 CASEY MANCIA MD Ot Z88.0 ALLERGY STATUS TO PENICILLIN 04/18/2018 CASEY MANCIA MD Ot Z88.8 ALLERGY STATUS TO OTH DRUG/MEDS/BIOL SUB 04/18/2018 CASEY MANCIA MD Ot Z90.89 ACQUIRED ABSENCE OF OTHER ORGANS 04/18/2018 CASEY MANCIA MD Ot Z98.51 TUBAL LIGATION STATUS 04/20/2018 CASEY MANCIA MD Ot E11.9 TYPE 2 DIABETES MELLITUS WITHOUT COMPLIC 04/20/2018 CASEY MANCIA MD Ot F32.9 MAJOR DEPRESSIVE DISORDER, SINGLE EPISOD 04/20/2018 CASEY MANCIA MD Ot F41.9 ANXIETY DISORDER, UNSPECIFIED 04/20/2018 CASEY MANCIA MD Ot 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 FASCIAL FIBROMATOSIS 04/20/2018 CASEY MANCIA MD Ot M79.672 PAIN IN LEFT FOOT 04/20/2018 CASEY MANCIA MD Ot Z79.84 JAIL (CURRENT) USE OF ORAL HYPOGLYC 04/20/2018 CASEY MANCIA MD Ot Z88.0 ALLERGY STATUS TO PENICILLIN 04/20/2018 CASEY MANCIA MD Ot Z88.8 ALLERGY STATUS TO OTH DRUG/MEDS/BIOL SUB 04/20/2018 CASEY MANCIA MD Ot Z90.89 ACQUIRED ABSENCE OF OTHER ORGANS 04/20/2018 CASEY MANCIA MD Ot Z98.51 TUBAL LIGATION STATUS 04/30/2018 CLAUDETTE SREEKANTH Adan APRN Ot N63.10 UNSPECIFIED LUMP IN THE RIGHT BREAST, UN 04/30/2018 WILKINSSREEKANTH Morales [employer] REPAIRMAN Ot N63.21 UNSPECIFIED LUMP IN THE LEFT BREAST, UPP 05/12/2018 CHALINO LESLIE APRN Ot E11.9 TYPE 2 DIABETES MELLITUS WITHOUT COMPLIC 05/12/2018 CHALINO LESLIE APRN Ot F32.9 MAJOR DEPRESSIVE DISORDER, SINGLE EPISOD 05/12/2018 CHALINO LESLIE APRN Ot F41.9 ANXIETY DISORDER, UNSPECIFIED 05/12/2018 CHALINO LESLIE APRN Ot M17.11 UNILATERAL PRIMARY OSTEOARTHRITIS, RIGHT 05/12/2018 CHALINO LESLIE APRN Ot M25.561 PAIN IN RIGHT KNEE 05/12/2018 CHALINO LESLIE APRN Ot Z79.84 JAIL (CURRENT) USE OF ORAL HYPOGLYC 05/12/2018 CHALINO LESLIE APRN Ot Z88.1 ALLERGY STATUS TO OTHER ANTIBIOTIC AGENT 05/12/2018 CHALINO LESLIE APRN Ot Z88.8 ALLERGY STATUS TO OTH DRUG/MEDS/BIOL SUB 05/12/2018 CHALINO LESLIE APRN Ot Z90.89 ACQUIRED ABSENCE OF OTHER ORGANS 05/12/2018 CHALINO LESLIE APRN Ot Z98.51 TUBAL LIGATION STATUS 06/10/2018 CITLALY SALEEM Ot 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 [[place]] 06/10/2018 CITLALY SALEME Ot S83.241A OTH TEAR OF MEDIAL MENISCUS, CURRENT INJ 06/10/2018 CITLALY SALEEM Ot S83.281A OTH TEAR OF LAT MENSC, CURRENT INJURY, R Procedures Code Description Performed By Performed On Psychiatr Eusebio Britoth 06/23/2012 85267 A1C (IN-HOUSE) 06/23/2012 14378 PSYCH DIAG INTER EXAM 07/07/2012 43180 SLEEP STUDY 07/07/2012 78643 EKG, TRACING (IN-HOUSE) 07/14/2012 59930 TRICHOMONAS (IN-HOUSE) 10/14/2012 42899 GC/CHLAM PROBE (STATE) 10/15/2012 82579 PAP SMEAR 10/15/2012 Q0091 PAP SMEAR OBTAIN SMEAR 10/15/2012 81610 CULTURE UROGENITAL 10/15/2012 87097 UA W/ CULTURE IF INDICATED 01/21/2013 J2550 PHENERGAN INJECTION UP TO 50 MG 01/24/2013 03633 THERAPUTIC INJ SQ/IM 01/24/2013 87154 A1C (IN-HOUSE) 05/11/2013 19096 MICRO ALBUMIN-IN HOUSE 05/11/2013 83727 XRAY SHOULDER LEFT COMP 2 VIEWS 05/20/2013 29039 THERAPUTIC INJ SQ/IM 05/25/2013 99396 UA W/ CULTURE IF INDICATED 05/25/2013 80825 Emergency department visit for the evalu FREEDOM [...] 10*3/uL 0.4-1.08 VAGINITIS SCREEN - 10/02/15 11:15 5279631 Negative 5018613 Negative 5611807 Positive NEISSERIA GONORRHOEAE AMPLIFIED PROBE - 10/02/15 11:15 4633283 Negative Negative CHLAMYDIA TRACHOMATIS AMPLIFIED PROBE - 10/02/15 11:15 3480345 Negative Negative CBC WITH AUTO DIFFERENTIAL - [...] RED CELL DISTRIBUTION WIDTH 13.6 % 11.9-15.5 6022861 13.0 10E9/L 3.5-10.5 5970686 3.20 10E9/L 0.90-2.90 1755954 0.80 10E9/L 0.30-0.90 6182701 0.20 10E9/L 0.05-0.50 8530161 8.80 10E9/L 1.70-7.00 5891588 0.10 10E9/L 0.00-0.30 PT T APTT - [...] mg/dL 0.2 WBC UA 0-3 /HPF 0-3 9719281 Negative Negative CHLAMYDIA TRACHOMATIS AMPLIFIED PROBE - 11/07/15 12:10 2672023 Negative Negative NEISSERIA GONORRHOEAE AMPLIFIED PROBE - 11/07/15 12:10 9429610 Negative Negative SEDIMENTATION RATE, MANUAL - 05/09/16 08:51 7129280 35 mm/Hr <=20 C-REACTIVE PROTEIN - 05/09/16 08:51 2518124 1.1 mg/dL <=0.9 COMPREHENSIVE METABOLIC PANEL - [...] RED CELL DISTRIBUTION WIDTH 14.1 % 11.9-15.5 7927937 14.5 10E9/L 3.5-10.5 2293305 4.20 10E9/L 0.90-2.90 1834933 0.90 10E9/L 0.30-0.90 5305092 0.20 10E9/L 0.05-0.50 3919693 9.20 10E9/L 1.70-7.00 2685568 0.10 10E9/L 0.00-0.30 COMPREHENSIVE METABOLIC PANEL - [...] mmol/L 136-145 URINE CULTURE - 06/07/16 15:39 8079426 Urogenital jah URINALYSIS, REFLEX CULTURE IF NEEDED [...] mg/dL 0.2 WBC UA 0-3 /HPF 0-3 1462250 Negative Negative STREP SCREEN CONFIRMATION - 09/06/16 17:31 9965235 Negative CBC With Differential/Platelet - 03/30/17 11:45 [...] 09:40 Hemoglobin A1c 6.7 % 4.8-5.6 Thyroid Mineral Profile - 04/28/17 09:40 TSH 1.670 uIU/mL [...] Status Pt. Type Provider Facility Loc./Unit Complaint [id number] 08/15/2016 09:53:00 08/15/2016 11:23:00 DIS Emergency Chris, [facility] ER EENT [id number] 06/21/2018 13:40:00 06/21/2018 23:59:59 [facility] [id number] 04/22/2018 08:40:00 Document Registration [id number] 12/15/2017 15:00:00 Document Registration [id number] 04/28/2017 08:40:00 Document Registration [id number] 05/21/2018 08:57:00 05/21/2018 23:59:59 CLS Outpatient CITLALY SALEEM [facility] RAD ACUTE PAIN OF RIGHT KNEE [id number] 05/12/2018 11:56:00 05/12/2018 13:21:00 DIS Emergency CHALINO LESLIE [employer] REPAIRMAN [facility] ER R KNEE PAIN [id number] 04/18/2018 15:22:00 04/18/2018 17:13:00 DIS Emergency CASEY MANCIA MD [facility] ER PAIN IN CALF [id number] 02/22/2018 15:00:00 02/22/2018 23:59:59 CLS Preadmit OTHER, UNLISTED [facility] RAD POSTERIOR RIGHT KNEE PAIN [id number] 02/17/2018 11:59:00 02/17/2018 16:00:00 DIS Emergency PEYMAN SANDERS [facility] ER ABD PAIN,VOMITING [id number] 01/27/2018 14:25:00 01/27/2018 17:24:00 DIS Emergency KAVON NOE MD [facility] ER RT SIDE RASH [id number] 01/05/2018 10:45:00 01/05/2018 23:59:59 CLS Preadmit SREEKANTH WILKINS [employer] REPAIR[employer] [facility] RAD CYST OF OVARY, UNSPECIFIED LATERALITY [id number] 12/17/2017 12:38:00 12/17/2017 16:32:00 DIS Emergency CASEY MANCIA MD [facility] ER ABD PAIN [id number] 10/26/2017 13:14:00 10/26/2017 23:59:59 CLS Outpatient SREEKANTH WILKINS [employer]PA[employer] [facility] RAD LUMP OF RT BREAST [id number] 03/30/2017 14:45:00 03/30/2017 17:12:00 DIS Emergency KAVON NOE MD [facility] ER SOA [id number] 11/12/2013 00:01:00 11/12/2013 02:34:00 DIS Emergency KAVON NOE MD [facility] ER BACK PAIN [id number] 09/26/2013 15:26:00 09/26/2013 19:55:00 DIS Emergency KALINA ADRIAN [facility] ER HEADACHE [id number] 07/17/2012 16:04:00 Document Registration [id number] 01/15/2012 05:56:00 Document Registration [id number] 10/06/2016 06:03:32 ACT Document Registration [id number] 10/10/2013 13:56:00 10/10/2013 23:59:59 CLS Outpatient TAWANA MAIMARLENE [id number] 09/27/2013 10:43:00 09/27/2013 23:59:59 CLS Outpatient JOSESITO LUKE APRN [id number] 05/25/2013 11:17:00 05/25/2013 23:59:59 CLS Outpatient ALINA MARIN DO [id number] 05/20/2013 10:35:00 05/20/2013 23:59:59 CLS Outpatient MAXIMINO KHANNA MD [id number] 05/11/2013 10:41:00 05/11/2013 23:59:59 CLS Outpatient JOSESITO LUKE APRN [id number] 03/03/2013 17:12:00 03/03/2013 23:59:59 CLS Outpatient ONEAL CROCKETT DO [id number] 10/26/2012 09:50:00 10/26/2012 23:59:59 CLS Outpatient JOSESITO LUKE APRN [id number] 10/20/2012 11:47:00 10/20/2012 23:59:59 CLS Outpatient [id number] 10/14/2012 09:46:00 10/14/2012 23:59:59 CLS Outpatient ALINA MARIN DO [id number] 09/16/2012 10:21:00 09/16/2012 23:59:59 CLS Outpatient ALINA MARIN DO [id number] 09/02/2012 11:15:00 09/02/2012 23:59:59 CLS Outpatient [id number] 08/14/2012 10:00:00 08/14/2012 23:59:59 CLS Outpatient ONEAL CROCKETT DO [id number] 07/08/2012 16:54:00 07/08/2012 23:59:59 CLS Outpatient ONEAL CROCKETT DO [id number] 07/06/2012 15:30:00 07/06/2012 23:59:59 CLS Outpatient [id number] 05/20/2012 13:51:00 05/20/2012 23:59:59 CLS Outpatient JOSESITO LUKE APRN [id number] 01/24/2013 13:14:00 Document Registration [id number] 11/23/2012 14:01:00 Document Registration [id number] 01/04/2017 08:02:44 01/04/2017 08:35:00 DIS Emergency MAXIMINO DUNN [facility] [id number] 09/06/2016 17:04:47 09/06/2016 19:01:00 DIS Emergency Darian REYNOLDS [facility] [id number] 05/09/2016 08:02:00 05/09/2016 12:17:00 DIS Emergency Darian REYNOLDS [facility] [id number] 04/06/2016 16:17:58 04/06/2016 17:37:00 DIS Emergency ANA LEACH [facility] [id number] 11/07/2015 09:16:36 11/07/2015 12:27:00 DIS Emergency Darian REYNOLDS [facility] [id number] 10/23/2015 15:42:24 10/23/2015 23:59:59 CLS Outpatient GIGI GREEN [facility] [id number] 10/21/2015 17:19:05 10/21/2015 23:59:59 CLS Outpatient GIGI GREEN [facility] [id number] 10/02/2015 10:17:23 10/02/2015 23:59:59 CLS Outpatient MARGARITO RAMIRES [facility] [id number] 09/25/2015 09:05:41 09/25/2015 23:59:59 CLS Outpatient RUTH ESPINO [facility] [id number] 07/20/2015 15:15:02 07/20/2015 23:59:59 CLS Outpatient BENNIE LOPEZ [facility] [id number] 06/07/2016 14:04:27 Document Registration [id number] 10/12/2015 15:33:36 Document Registration [id number] 10/02/2015 11:24:39 Document Registration [id number] 07/03/2015 13:44:27 Document Registration [id number] 09/27/2016 11:59:00 09/27/2016 14:25:00 DIS Emergency SELENA PONCE [facility] FED [id number] 06/25/2016 12:18:00 06/25/2016 12:54:00 DIS Emergency [facility] FED [id number] 11/13/2014 04:26:00 11/13/2014 05:49:00 DIS Emergency CARMENZA ISIDROCA S [facility] FED [id number] 11/07/2014 18:20:00 11/07/2014 22:19:00 DIS Emergency MARLENE LANZA [facility] FED [id number] 10/31/2014 15:51:00 10/31/2014 19:03:00 DIS Emergency TOM BLAIR [facility] FED [id number] 03/31/2017 08:36:00 Document Registration [id number] 04/29/2017 14:11:00 Document Registration
[2018-07-04] MEDS ORDERED: diphenhydrAMINE 50 MG/ML INJ (BENADRYL) IM ONE (12:15)
[2018-07-04] MEDS ORDERED: PROCHLORPERAZINE 10 MG/2ML INJ (COMPAZINE) IM ONE (12:15)
[2018-07-04] MEDS ORDERED: KETOROLAC 60 MG/2 ML VIAL IM ONE (12:15)
[2018-07-04 12:21] LABS: BILIRUBIN,URINE NEGATIVE (NEGATIVE); CLARITY,URINE CLEAR; COLOR,URINE YELLOW; GLUCOSE, URINE (UA) NEGATIVE (NEGATIVE); KETONES,URINE NEGATIVE (NEGATIVE); LEUKOCYTE ESTERASE ,URINE 2+ (NEGATIVE); NITRITE,URINE NEGATIVE (NEGATIVE); PH,URINE 5 (5-9); PROTEIN,URINE 1+ (NEGATIVE); UROBILINOGEN,URINE NORMAL (NORMAL)
--- NOTE | 2018-07-04 12:24 | ED General ---
General Chief Complaint: General Problems/Pain Stated Complaint: HEAD/NOSE PAIN, PERIOD FOR 2 MONTHS NOW Nursing Triage Note: ARRIVED VIA AMB TO ROOM 03. COMPLAINS OF HEADACHE, ANXIETY, VAGINAL BLEEDING FRO X2 WEEKS. STATES SHE RECIEVES SHOTS FOR THE VAGINAL BLEEDING. NOT SLEEPING DUE TO ANXIETY. Nursing Sepsis Screen: No Definite Risk Source of Information: Patient Exam Limitations: No Limitations History of Present Illness Date Seen by Provider: Jul 04, 2018 Time Seen by Provider: 12:05 Initial Comments Patient is a 43-year-old female who presents to the emergency room with complaints of headache for 2 weeks. She reports that she has not been able to sleep due to the pain, and that the pain is causing her normal anxiety to be worse. She also reports that she has had vaginal spotting for 2 months and has received injections for the vaginal bleeding that has not improved. She received injections at [facility]. Timing/Duration: Other Associated Systoms: Headaches Allergies and Home Medications Allergies Coded Allergies: ciprofloxacin (Verified Allergy, Unknown, 03/10/18) ciprofloxacin HCl (Verified Allergy, Unknown, 03/10/18) olanzapine (Unverified Adverse Reaction, Mild, rash, 01/15/12) Home Medications Amoxicillin/Potassium Clav 1 Each Tablet, 1 EACH PO BID Prescribed by: PEYMAN SANDERS on 07/04/18 1256 Doxycycline Hyclate 100 Mg Tablet, 100 MG PO BID Prescribed by: KAVON MEYERS on 01/27/18 1715 Fluoxetine Hcl 20 Mg Capsule, 1 EACH PO DAILY, (Reported) Ibuprofen 600 Mg Tablet, 600 MG PO Q6H PRN for PAIN Prescribed by: KAVON MEYERS on 11/12/13 0152 Lamotrigine 25 Mg Tab, 25 MG PO DAILY, (Reported) Meloxicam 15 Mg Tablet, 15 MG PO DAILY Prescribed by: CHALINO LESLIE on 05/12/18 1259 Metformin Hcl 500 Mg Tab.sr.24h, 2 EACH PO BID WITH MEALS, (Reported) Ondansetron HCl 4 Mg Tab, 4 MG PO Q4H PRN for nausea and vomiting Prescribed by: PEYMAN SANDERS on 02/17/18 1523 Pantoprazole Sodium 20 Mg Tablet.dr, 20 MG PO DAILY Prescribed by: PEYMAN SANDERS on 02/17/18 1523 Polyethylene Glycol 17 Gm Pack, 17 GM PO DAILY PRN for CONSTIPATION 1-2 times daily FOR CONSTIPATION Prescribed by: KAVON MEYERS on 11/12/13 0152 Quetiapine Fumarate 25 Mg Tablet, 3 TAB PO HS, (Reported) Sulfamethoxazole/Trimethoprim 1 Each Tablet, 1 EACH PO BID Prescribed by: PEYMAN SANDERS on 02/17/18 1523 Patient Home Medication List Home Medication List Reviewed: Yes Review of Systems Review of Systems Constitutional: no symptoms reported, see HPI EENTM: nose congestion, nose pain Genitourinary: see HPI, other (irrigular periods) Psychiatric/Neurological: See HPI, Headache Past Xznfkxx-Aopour-Ypnvtn Hx Past Med/Social Hx: Reviewed Nursing Past Med/Soc Hx Patient Social History Alcohol Use: Denies Use Recreational Drug Use: No Smoking Status: Never a Smoker 2nd Hand Smoke Exposure: No Recent Foreign Travel: No Contact w/Someone Who Travel: No Recent Infectious Disease Expo: No Recent Hopitalizations: No Immunizations Up To Date Date of Influenza Vaccine: Jul 03, 2013 Past Medical History Surgeries: Yes Appendectomy, Tubal Ligation Respiratory: No Cardiac: No Neurological: No Reproductive Disorders: No (STATES MENSES EVERY MONTH , NONE IN SEP) Genitourinary: No Gastrointestinal: No Musculoskeletal: No Endocrine: No Diabetes, Non-Insulin dep HEENT: No Cancer: No Psychosocial: Yes Sleep Difficulties, Anxiety, Depression Integumentary: No Blood Disorders: No Family Medical History Reviewed Nursing Family Hx Physical Exam Vital Signs Vital Signs - First Documented 07/04/18 07/04/18 12:09 13:37 Temp 98.0 Pulse 98 Resp 16 B/P (MAP) 142/100 (114) Pulse Ox 99 O2 Delivery Room Air Capillary Refill : Less Than 3 Seconds Height, Weight, BMI Height: 5'0" Weight: 178lbs. 0oz. 80.301448vf; BMI Method:Stated General Appearance: No Apparent Distress, WD/WN HEENT: PERRL/EOMI, TMs Normal, Pharynx Normal, Other (tenderness over frontal sinus cavity ) Respiratory: Chest Non Tender, Lungs Clear, Normal Breath Sounds, No Accessory Muscle Use, No Respiratory Distress Cardiovascular: Regular Rate, Rhythm, No Edema, No Gallop, No JVD, No Murmur, Normal Peripheral Pulses Extremity: Normal Capillary Refill 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: Alert, Oriented x3, No Motor/Sensory Deficits, Normal Mood/Affect Skin: Normal Color, Warm/Dry Progress/Results/Core Measures Suspected Sepsis Recent Fever Within 48 Hours: No Infection Criteria Present: None New/Unexplained Altered Menta: No Sepsis Screen: No Definite Risk SIRS Temperature:98.0 Pulse: 98 Respiratory Rate: 16 Laboratory Tests 07/04/18 12:33: White Blood Count 18.4H Blood Pressure 142 /100 Mean: 114 Laboratory Tests 07/04/18 12:33: Creatinine 0.82, Platelet Count 570H, Total Bilirubin 0.3 Results/Orders Lab Results My Orders Medications Given in ED Vital Signs/I&O Capillary Refill : Less Than 3 Seconds Blood Pressure Mean: 114 Progress Note : Time: 12:52 Progress Note I have seen and evaluated the patient. Given her symptoms for greater that 1 week and elevated WBC I will be treating her with an antibiotic for a sinus infection. Her HGB and HCT were within normal ranges and she denies active vaginal bleeding today. I will be letting [facility] continue to manage medications for further treatment of irregular periods. She agrees with plan of care. Return precautions were given. Departure Impression Primary Impression: Sinus infection Additional Impression: Irregular menstrual bleeding Disposition: 01 HOME, SELF-CARE Condition: Stable/Unchanged Departure-Patient Inst. Decision time for Depature: 12:52 Referrals: ALINA MARIN DO (PCP) Primary Care Physician [facility] (Family) Primary Care Physician Patient Instructions: Sinusitis, Adult (DC) Add. Discharge Instructions: Take antibiotics as directed. You may use Tylenol and ibuprofen over-the- counter for pain relief. You might also have some relief with using over-the- counter Afrin as directed by the box. Follow-up with [facility] in regards to you irregular menstrual cycles and bleeding. Return back to the emergency room for any worsening symptoms or concerns as needed. All discharge instructions reviewed with patient and/or family. Voiced understanding. Scripts Amoxicillin/Potassium Clav (Augmentin 875-125 Tablet) 1 Each Tablet 1 EACH PO BID for 7 Days, #14 TAB Prov: PEYMAN SANDERS 07/04/18 PEYMAN SANDERS Jul 04, 2018 12:24
[2018-07-04 12:27] LABS: BACTERIA,URINE NEGATIVE /HPF; RBC,URINE RARE /HPF; WBC,URINE 0-2 /HPF
[2018-07-04 12:44] LABS: BASOPHILS # (AUTO) 0.1 10^3/uL (0.0-0.1); BASOPHILS % (AUTO) 1 % (0-10); EOSINOPHILS # (AUTO) 0.1 10^3/uL (0.0-0.3); EOSINOPHILS % (AUTO) 1 % (0-10); HEMATOCRIT 39 % (35-52); HEMOGLOBIN 12.8 G/DL (11.5-16.0); LYMPHOCYTES # (AUTO) 4.6 X 10^3 (1.0-4.0); LYMPHOCYTES % (AUTO) 25 % (12-44); MEAN CORPUSCULAR HEMOGLOBIN 28 PG (25-34); MEAN CORPUSCULAR HGB CONC 33 G/DL (32-36); MEAN CORPUSCULAR VOLUME 86 FL (80-99); MEAN PLATELET VOLUME 10.1 FL (7.4-10.4); MONOCYTES # (AUTO) 0.9 X 10^3 (0.0-1.0); MONOCYTES % (AUTO) 5 % (0-12); NEUTROPHILS # (AUTO) 12.7 X 10^3 (1.8-7.8); NEUTROPHILS % (AUTO) 69 % (42-75); PLATELET COUNT 570 10^3/uL (130-400); RED BLOOD COUNT 4.54 10^6/uL (4.35-5.85); RED CELL DISTRIBUTION WIDTH 15.4 % (10.0-14.5); WHITE BLOOD COUNT 18.4 10^3/uL (4.3-11.0)
[2018-07-04] MEDS ORDERED: AMOX-358 PO (12:56)
[2018-07-04 12:59] LABS: ALANINE AMINOTRANSFERASE 24 U/L (0-55); ALBUMIN 4.4 GM/DL (3.2-4.5); ALKALINE PHOSPHATASE 81 U/L (40-136); BILIRUBIN,TOTAL 0.3 MG/DL (0.1-1.0); BUN/CREATININE RATIO 12; CALCIUM 9.5 MG/DL (8.5-10.1); CARBON DIOXIDE 20 MMOL/L (21-32); CHLORIDE 105 MMOL/L (98-107); CREATININE SERUM 0.82 MG/DL (0.60-1.30); GFR ESTIMATED > 60; GLUCOSE 115 MG/DL (70-105); POTASSIUM 3.6 MMOL/L (3.6-5.0); SODIUM 138 MMOL/L (135-145); TOTAL PROTEIN 8.8 GM/DL (6.4-8.2)
[2018-07-04] MEDS ORDERED: cefTRIAXone 1 GM/10 ML for IV (ROCEPHIN) ONE (13:13)
[2018-07-04] MEDS ORDERED: LIDOCAINE 1% INJ 20 ML 20 ML VIAL ONE (13:13)
[2018-07-04] MEDS ORDERED: cefTRIAXone 1,000 MG/2.86 ml vial (IM ONLY) IM SCH (13:15)
[2018-07-04 13:25] LABS: BAND NEUTROPHILS 0 %; BASOPHILS % (MANUAL) 0 %; EOSINOPHILS % (MANUAL) 0 %; LYMPHOCYTES % (MANUAL) 33 %; MONOCYTES % (MANUAL) 2 %; NEUTROPHILS % (MANUAL) 65 %; RBC MORPH NORMAL
[2018-07-04 13:37] VITALS: BP 131/85
== END 2018-07-04 13:37 | disposition home or self-care (01) ==
LOC: EDUNIT# 12:03 → ER 12:04
DX: J32.9 Chronic sinusitis, unspecified (principal); N92.6 Irregular menstruation, unspecified; E11.9 Type 2 diabetes mellitus without complications; F41.9 Anxiety disorder, unspecified; F32.9 Major depressive disorder, single episode, unspecified; Z88.8 Allergy status to other drugs, medicaments and biological substances; Z79.84 Long term (current) use of oral hypoglycemic drugs; Z90.49 Acquired absence of other specified parts of digestive tract; Z98.51 Tubal ligation status
CPT/HCPCS: 36415; 80053; 81000; 84703; 85007; 85027; 99284

== ENCOUNTER 2019-08-24 05:11 | Emergency (ER) | payer SELFPAY ==
[~2019-08-24] VITALS: Ht 153 cm; Wt 69.5 kg
[~2019-08-24 05:11] MED LIST changes: +AMOX-358 PO
[2019-08-24] MEDS ORDERED: ONDANSETRON 4 MG (ZOFRAN) ORAL DISSOLVE TAB PO ONE (05:30)
[2019-08-24] MEDS ORDERED: KETOROLAC 60 MG/2 ML VIAL IM ONE (05:30)
--- NOTE | 2019-08-24 05:35 | ED Cough/URI ---
General Chief Complaint: Cough/Cold/Flu Symptoms Stated Complaint: CHILLS,HEAD PAIN,SOB,NAUSEA Nursing Triage Note: HEADACHE,SOA,CHILLS, VOMITTING X2 DAYS Sepsis Screen: No Definite Risk Source: patient Exam Limitations: language barrier (interpreter line used) (LEONARDO MASTERSON) History of Present Illness Date Seen by Provider: Aug 24, 2019 Time Seen by Provider: 05:16 Initial Comments Patient presents to ER by private conveyance from home with chief complaint for 5 days of cough, body aches, malaise, subjective fevers and now tonight nausea with vomiting times once. She's had no rash. She has a sister with similar symptoms who was diagnosed with bronchitis. She has no history of lung disease and does not smoke drink or use drugs. She has no significant medical history outside of depression, insomnia and anxiety. She took some Tylenol yesterday at 1999. She's had nothing since then. Appetite is good when she is not vomiting. No diarrhea or constipation. No history of surgeries. She finished her period 2 days ago. (LEONARDO MASTERSON) Allergies and Home Medications Allergies Coded Allergies: ciprofloxacin (Verified Allergy, Unknown, 03/10/18) ciprofloxacin HCl (Verified Allergy, Unknown, 03/10/18) olanzapine (Unverified Adverse Reaction, Mild, rash, 01/15/12) Home Medications Fluoxetine Hcl 20 Mg Capsule, 1 EACH PO DAILY, (Reported) Ibuprofen 600 Mg Tablet, 600 MG PO Q6H PRN for PAIN Prescribed by: KAVON MEYERS on 11/12/13151 Lamotrigine 25 Mg Tab, 25 MG PO DAILY, (Reported) Meloxicam 15 Mg Tablet, 15 MG PO DAILY Prescribed by: CHALINO LESLIE on 05/12/18 1259 Metformin Hcl 500 Mg Tab.sr.24h, 2 EACH PO BID WITH MEALS, (Reported) Ondansetron HCl 4 Mg Tab, 4 MG PO Q4H PRN for nausea and vomiting Prescribed by: PEYMAN SANDERS on 02/17/18 152 Pantoprazole Sodium 20 Mg Tablet.dr, 20 MG PO DAILY Prescribed by: PEYMAN SANDERS on 02/17/18 152 Polyethylene Glycol 17 Gm Pack, 17 GM PO DAILY PRN for CONSTIPATION 1-2 times daily FOR CONSTIPATION Prescribed by: KAVON MEYERS on 4/12/14 0152 Quetiapine Fumarate 25 Mg Tablet, 3 TAB PO HS, (Reported) Sulfamethoxazole/Trimethoprim 1 Each Tablet, 1 EACH PO BID Prescribed by: PEYMAN SANDERS on 02/17/18 1523 Patient Home Medication List Home Medication List Reviewed: Yes (LEONARDO MASTERSON) Review of Systems Review of Systems Constitutional: chills, fever, malaise EENTM: No ear discharge, No ear pain Respiratory: cough; No phlegm, No short of breath Cardiovascular: No Hx of Intervention, No palpitations Gastrointestinal: No abdominal pain, No constipation, No diarrhea; nausea, vomiting Genitourinary: No discharge, No dysuria Musculoskeletal: No back pain, No joint pain (LEONARDO MASTERSON) Past Lmignvb-Zdvael-Ickofi Hx Patient Social History Alcohol Use: Denies Use Recreational Drug Use: No Smoking Status: Never a Smoker 2nd Hand Smoke Exposure: No Recent Foreign Travel: No Contact w/Someone Who Travel: No Recent Infectious Disease Expo: No Recent Hopitalizations: No Physical Abuse: No Sexual Abuse: No Mistreated: No Fear: No (LEONARDO MASTERSON) Immunizations Up To Date Tetanus Booster (TDap): Unknown Date of Influenza Vaccine: Jul 03, 2013 (LEONARDO MASTERSON) Seasonal Allergies Seasonal Allergies: No (LEONARDO MASTERSON) Past Medical History Surgeries: Yes Appendectomy, Tubal Ligation Respiratory: No Cardiac: No Neurological: No : No Last Menstrual Period: Aug 22, 2019 Reproductive Disorders: No (STATES MENSES EVERY MONTH , NONE IN SEP) Genitourinary: No Gastrointestinal: No Gastroesophageal Reflux, Chronic Constipation Musculoskeletal: No Endocrine: No Diabetes, Non-Insulin dep HEENT: No Cancer: No Psychosocial: Yes Sleep Difficulties, Anxiety, Depression Integumentary: No Blood Disorders: No (LEONARDO MASTERSON) Physical Exam Vital Signs - First Documented (CASEY MANCIA MD) Capillary Refill : Less Than 3 Seconds (LEONARDO MASTERSON) Height: 5'0" Weight: 178lbs. 0oz. 80.912417si; 29.00 BMI Method:Stated General Appearance: WD/WN, no apparent distress Eyes: Bilateral Eye Normal Inspection, Bilateral Eye PERRL, Bilateral Eye EOMI HEENT: PERRL/EOMI, normal ENT inspection, TM abnormal (R), TM abnormal (L) (bilateral mucoid effusion without erythema, injection or loss of landmarks of the tympanic membrane.), pharyngeal erythema; No tonsillar exudate Neck: non-tender, full range of motion, supple, normal inspection Respiratory: lungs clear, normal breath sounds, no respiratory distress, no accessory muscle use Cardiovascular: normal peripheral pulses, regular rate, rhythm, no edema 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: alert, normal mood/affect, oriented x 3 Skin: normal color, warm/dry (LEONARDO MASTERSON) Progress/Results/Core Measures Suspected Sepsis Recent Fever Within 48 Hours: No Infection Criteria Present: None New/Unexplained Altered Menta: No Sepsis Screen: No Definite Risk SIRS Temperature: Pulse: 83 Respiratory Rate: 16 Blood Pressure 142 /91 Mean: 108 (LEONARDO MASTERSON) Results/Orders Lab Results Laboratory Tests Test 08/24/19 05:27 Range/Units Group A Streptococcus Screen NEGATIVE NEGATIVE (CASEY MANCIA MD) Micro Results Microbiology 08/24/19 Influenza Types A,B Antigen (MYLENE) - Final, Complete (CASEY MANCIA MD) Medications Given in ED Current Medications Medications Dose Ordered Sig/Sammie Route Start Time Stop Time Status Last Admin Dose Admin Ketorolac Tromethamine 60 mg ONCE ONCE IM 08/24/19 05:30 08/24/19 05:31 DC 08/24/19 05:33 60 MG Ondansetron HCl 4 mg ONCE ONCE PO 08/24/19 05:30 08/24/19 05:31 DC 08/24/19 05:33 4 MG (CASEY MANCIA MD) Vital Signs/I&O 08/24/19 08/24/19 08/24/19 05:18 05:18 05:33 Temp 37.1 37.1 Pulse 83 Resp 16 B/P (MAP) 142/91 (108) Pulse Ox 97 O2 Delivery Room Air Room Air (CASEY MANCIA MD) Vital Signs/I&O Capillary Refill : Less Than 3 Seconds (LEONARDO MASTERSON) Blood Pressure Mean: 108 Progress Note : Time: 05:33 Progress Note She appears to have an influenza or viral like illness. We'll check an influenza swab as well as rapid strep. Toradol for her body aches and Zofran for her nausea. Aseptic vital signs with good sounding lungs. (LEONARDO MASTERSON) Progress Note : Progress Note 0615: I assumed care of the patient from Dr. Masterson pending influenza screen. That is negative. Overall she is feeling better. She would like prescription for nausea medicine which I will write for. Discharged home with return precautions. Patient verbalize understanding instructions and agreement with plan. (CASEY MANCIA MD) Departure Impression Primary Impression: Influenza-like symptoms Disposition: HOME, SELF-CARE Condition: Improved Departure-Patient Inst. Decision time for Depature: 06:16 (CASEY MANICA MD) Referrals: ALINA MARIN DO (PCP) Primary Care Physician [facility]ABETH (Family) Primary Care Physician Patient Instructions: Nausea and Vomiting, Adult (DC), Viral Upper Respiratory Infection, Adult (DC) Add. Discharge Instructions: Drink lots of fluids. Sports drinks are encouraged. Humidifiers and vapor rubs can be helpful for congestion. Tylenol 1000 mg every 8 hours as needed for pain or fever. Ibuprofen 800 mg every 8 hours as needed for body aches or fever. Get plenty of rest. Return to work after fever free for 24 hours. All discharge instructions reviewed with patient and/or family. Voiced understan sarai. Scripts Ondansetron (Ondansetron Odt) 4 Mg Tab.rapdis 4 MG PO Q6H PRN for NAUSEA/VOMITING, #8 TAB 0 Refills Prov: CASEY MANCIA MD 08/24/19 LEONARDO MASTERSON Aug 24, 2019 05:35 CASEY MANCIA MD Aug 24, 2019 06:18
[2019-08-24] MEDS ORDERED: ONDA4TAB11 PO (06:18)
[2019-08-24 06:23] VITALS: BP 124/80
== END 2019-08-24 06:24 | disposition home or self-care (01) ==
LOC: EDUNIT# 05:11 → ER 05:13
DX: R09.89 Other specified symptoms and signs involving the circulatory and respiratory systems (principal); E11.9 Type 2 diabetes mellitus without complications; F32.9 Major depressive disorder, single episode, unspecified; F41.9 Anxiety disorder, unspecified; K21.9 Gastro-esophageal reflux disease without esophagitis; Z98.51 Tubal ligation status; Z88.1 Allergy status to other antibiotic agents; Z88.8 Allergy status to other drugs, medicaments and biological substances; Z79.84 Long term (current) use of oral hypoglycemic drugs; Z90.49 Acquired absence of other specified parts of digestive tract
CPT/HCPCS: 87430; 87804

== ENCOUNTER 2019-12-18 23:54 | Emergency (ER) | payer SELFPAY ==
[~2019-12-18 23:54] MED LIST changes: +ONDA4TAB11 PO
--- NOTE | 2019-12-19 01:21 | ED GU-Female ---
General Chief Complaint: Foreign Body Stated Complaint: UNABLE TO REMOVE TAMPON Nursing Triage Note: TO ED VIA POV AND AMBULATORY TO ROOM 4. USE OF SALES EXECUTIVE LINE FOR TRIAGE. PT STATES HER PERIOD STARTED 12/13/19 AND USUALLY LASTS 3 DAYS. PT PLACED TAMPON IN, BUT DOES NOT KNOW WHEN AND IS UNABLE TO RETRIEVE IT AND IS NOW NOTICING AN ODOR. DENIES PAIN, BUT C/O HEADACHE. Nursing Sepsis Screen: No Definite Risk Source: patient Exam Limitations: no limitations History of Present Illness Date Seen by Provider: December 19, 2019 Time Seen by Provider: 00:30 Initial Comments This 44-year-old woman presents to the emergency room with complaints of retained tampon that she cannot remove. She has noticed some odor and some mild pressure. She also has a headache. Her LMP was December 12. She denies any vaginal discharge or drainage. Allergies and Home Medications Allergies Coded Allergies: ciprofloxacin (Verified Allergy, Unknown, 03/10/18) ciprofloxacin HCl (Verified Allergy, Unknown, 03/10/18) olanzapine (Unverified Adverse Reaction, Mild, rash, 01/15/12) Home Medications Fluoxetine Hcl 20 Mg Capsule, 1 EACH PO DAILY, (Reported) Ibuprofen 600 Mg Tablet, 600 MG PO Q6H PRN for PAIN Prescribed by: KAVON MEYERS on 11/12/13151 Lamotrigine 25 Mg Tab, 25 MG PO DAILY, (Reported) Meloxicam 15 Mg Tablet, 15 MG PO DAILY Prescribed by: CHALINO LESLIE on 05/12/18 1259 Metformin Hcl 500 Mg Tab.sr.24h, 2 EACH PO BID WITH MEALS, (Reported) Ondansetron 4 Mg Tab.rapdis, 4 MG PO Q6H PRN for NAUSEA/VOMITING Prescribed by: CASEY MANCIA on 08/24/19 0618 Ondansetron HCl 4 Mg Tab, 4 MG PO Q4H PRN for nausea and vomiting Prescribed by: PEYMAN SANDERS on 02/17/18 152 Pantoprazole Sodium 20 Mg Tablet.dr, 20 MG PO DAILY Prescribed by: PEYMAN SANDERS on 02/17/18 152 Polyethylene Glycol 17 Gm Pack, 17 GM PO DAILY PRN for CONSTIPATION 1-2 times daily FOR CONSTIPATION Prescribed by: KAVON MEYERS on 11/12/13151 Quetiapine Fumarate 25 Mg Tablet, 3 TAB PO HS, (Reported) Sulfamethoxazole/Trimethoprim 1 Each Tablet, 1 EACH PO BID Prescribed by: PEYMAN SANDERS on 02/17/18 1523 Patient Home Medication List Home Medication List Reviewed: Yes Review of Systems Review of Systems Constitutional: no symptoms reported EENTM: no symptoms reported Respiratory: no symptoms reported Cardiovascular: no symptoms reported Gastrointestinal: no symptoms reported Genitourinary: see HPI : No Musculoskeletal: no symptoms reported Skin: no symptoms reported Psychiatric/Neurological: See HPI Endocrine: No Symptoms Reported Hematologic/Lymphatic: No Symptoms Reported Past Mhqulyo-Ehjrvu-Cadkpy Hx Past Med/Social Hx: Reviewed Nursing Past Med/Soc Hx Patient Social History Alcohol Use: Denies Use Recreational Drug Use: No Smoking Status: Never a Smoker 2nd Hand Smoke Exposure: No Recent Foreign Travel: No Contact w/Someone Who Travel: No Recent Infectious Disease Expo: No Recent Hopitalizations: No Physical Abuse: No Sexual Abuse: No Mistreated: No Fear: No Immunizations Up To Date Tetanus Booster (TDap): Unknown Date of Influenza Vaccine: Jul 03, 2013 Seasonal Allergies Seasonal Allergies: No Past Medical History Surgeries: Yes Appendectomy, Tubal Ligation Respiratory: No Cardiac: No Neurological: No Reproductive Disorders: No (STATES MENSES EVERY MONTH , NONE IN SEP) Genitourinary: No Gastrointestinal: Yes Gastroesophageal Reflux, Chronic Constipation Musculoskeletal: No Endocrine: Yes Diabetes, Non-Insulin dep HEENT: No Cancer: No Psychosocial: Yes Sleep Difficulties, Anxiety, Depression Integumentary: No Blood Disorders: No Physical Exam Vital Signs Vital Signs - First Documented 12/19/19 12/19/19 00:17 01:27 Temp 36.7 Pulse 79 Resp 18 B/P (MAP) 110/85 (93) Pulse Ox 98 O2 Delivery Room Air Capillary Refill : Less Than 3 Seconds Height, Weight, BMI Height: 5'0" Weight: 178lbs. 0oz. 80.004426cp; 29.00 BMI Method:Stated General Appearance: WD/WN, no apparent distress HEENT: normal ENT inspection Genital/Rectal: normal genital exam, normal vaginal exam; No tenderness; other (Routine tampon posterior and left of the cervix. Easily removed with ring forceps.) Pelvic: normal external exam, no cerv. 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, no motor/sensory deficits, alert, normal mood/affect, oriented x 3 Skin: normal color, warm/dry Progress/Results/Core Measures Suspected Sepsis Recent Fever Within 48 Hours: No Infection Criteria Present: Suspected New Infection New/Unexplained Altered Menta: No Sepsis Screen: No Definite Risk SIRS Temperature: Pulse: 79 Respiratory Rate: 18 Blood Pressure 110 /85 Mean: 93 Results/Orders Vital Signs/I&O 12/19/19 12/19/19 00:17 01:27 Temp 36.7 36.7 Pulse 79 74 Resp 18 18 B/P (MAP) 110/85 (93) 122/90 (93) Pulse Ox 98 O2 Delivery Room Air Capillary Refill : Less Than 3 Seconds Blood Pressure Mean: 93 Progress Note : Progress Note Tampon easily removed with ring forceps during pelvic exam. No evidence of infection or inflammation. Departure Impression Primary Impression: Retained tampon Qualified Codes: T19.2XXA - Foreign body in vulva and vagina, initial encounter Disposition: HOME, SELF-CARE Condition: Improved Departure-Patient Inst. Decision time for Depature: 01:20 Referrals: ALINA MARIN DO (PCP) Primary Care Physician [facility] (Family) Primary Care Physician Patient Instructions: Vaginal Foreign Body Add. Discharge Instructions: Return to care if you have any further problems or concerns. All discharge instructions reviewed with patient and/or family. Voiced understanding. KAVON NOE MD December 19, 2019 01:21
[2019-12-19 01:27] VITALS: BP 122/90
== END 2019-12-19 01:28 | disposition home or self-care (01) ==
LOC: EDUNIT# 23:54 → ER 23:55
DX: T19.2XXA Foreign body in vulva and vagina, initial encounter (principal); E11.9 Type 2 diabetes mellitus without complications; K21.9 Gastro-esophageal reflux disease without esophagitis; F41.9 Anxiety disorder, unspecified; F32.9 Major depressive disorder, single episode, unspecified; Z88.1 Allergy status to other antibiotic agents; Z88.8 Allergy status to other drugs, medicaments and biological substances; Z79.84 Long term (current) use of oral hypoglycemic drugs
CPT/HCPCS: 99284

== ENCOUNTER 2020-06-03 19:10 | Emergency (ER) | payer SELFPAY ==
[~2020-06-03] VITALS: Ht 152 cm; Wt 65.7 kg
--- NOTE | 2020-06-03 19:55 | ED Upper Extremity ---
General Chief Complaint: Upper Extremity Stated Complaint: BILAT ELBOW/ARM PAIN Nursing Triage Note: TO ED WITH C/O BILAT ELBOW PAIN FOR 2 WEEKS. HAS UNFINISHED RX OF PREDNISONE FROM [facility] BUT STATES "IT ISN'T HELPING". Nursing Sepsis Screen: No Definite Risk Source: patient Exam Limitations: no limitations History of Present Illness Date Seen by Provider: Jun 03, 2020 Time Seen by Provider: 19:51 Initial Comments To ER with bilateral elbow pain for 2 weeks. She went to [facility] yesterday and got a prescription for prednisone. She was given 40 mg a day for 5 days. She has only taken one dose but doesn't notice much improvement yet. Denies any known injury or trauma. 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 No known injury no fever no chills. She denies any paresthesias or tingling distal to the elbows. Onset: other Severity: moderate Pain/Injury Location: bilateral elbow Modifying Factors: Improves With Cold Therapy (cold water makes it worse movement does not make it worse including flexion/extension or supination/pronation.) Allergies and Home Medications Allergies Coded Allergies: ciprofloxacin (Verified Allergy, Unknown, 03/10/18) ciprofloxacin HCl (Verified Allergy, Unknown, 03/10/18) olanzapine (Unverified Adverse Reaction, Mild, rash, 01/15/12) Home Medications Fluoxetine Hcl 20 Mg Capsule, 1 EACH PO DAILY, (Reported) Ibuprofen 600 Mg Tablet, 600 MG PO Q6H PRN for PAIN Prescribed by: KAVON MEYERS on 11/12/13 0152 Lamotrigine 25 Mg Tab, 25 MG PO DAILY, (Reported) Meloxicam 15 Mg Tablet, 15 MG PO DAILY Prescribed by: CHALINO LESLIE on 05/12/18 1259 Metformin Hcl 500 Mg Tab.sr.24h, 2 EACH PO BID WITH MEALS, (Reported) Ondansetron 4 Mg Tab.rapdis, 4 MG PO Q6H PRN for NAUSEA/VOMITING Prescribed by: CASEY MANCIA on 08/24/19 0618 Ondansetron HCl 4 Mg Tab, 4 MG PO Q4H PRN for nausea and vomiting Prescribed by: PEYMAN SANDERS on 02/17/18 1523 Pantoprazole Sodium 20 Mg Tablet.dr, 20 MG PO DAILY Prescribed by: PEYMAN SANDERS on 02/17/18 1523 Polyethylene Glycol 17 Gm Pack, 17 GM PO DAILY PRN for CONSTIPATION 1-2 times daily FOR CONSTIPATION Prescribed by: KAVON MEYERS on 11/12/13 0152 Quetiapine Fumarate 25 Mg Tablet, 3 TAB PO HS, (Reported) Sulfamethoxazole/Trimethoprim 1 Each Tablet, 1 EACH PO BID Prescribed by: PEYMAN SANDERS on 02/17/18 1523 Patient Home Medication List Home Medication List Reviewed: Yes Review of Systems Constitutional: see HPI EENTM: see HPI Respiratory: no symptoms reported Cardiovascular: no symptoms reported Genitourinary: no symptoms reported Musculoskeletal: see HPI, joint pain Skin: no symptoms reported Psychiatric/Neurological: No Symptoms Reported Past Ujpszti-Smrztv-Fytovi Hx Patient Social History Alcohol Use: Denies Use Recreational Drug Use: No 2nd Hand Smoke Exposure: No Recent Foreign Travel: No Contact w/Someone Who Travel: No Recent Infectious Disease Expo: No Recent Hopitalizations: No Immunizations Up To Date Tetanus Booster (TDap): Unknown Date of Influenza Vaccine: Jul 03, 2013 Seasonal Allergies Seasonal Allergies: No Past Medical History Surgeries: Yes Appendectomy, Tubal Ligation Respiratory: No Cardiac: No Neurological: No Reproductive Disorders: No (STATES MENSES EVERY MONTH , NONE IN SEP) Genitourinary: No Gastrointestinal: Yes Gastroesophageal Reflux, Chronic Constipation Musculoskeletal: No Endocrine: Yes Diabetes, Non-Insulin dep HEENT: No Cancer: No Psychosocial: Yes Sleep Difficulties, Anxiety, Depression Integumentary: No Blood Disorders: No Physical Exam Vital Signs Vital Signs - First Documented 06/03/20 19:18 Temp 37.0 Pulse 70 Resp 16 B/P (MAP) 138/79 (98) O2 Delivery Room Air Capillary Refill : Less Than 3 Seconds Height, Weight, BMI Height: 5'0" Weight: 178lbs. 0oz. 80.647183ja; 28.00 BMI Method:Stated General Appearance: WD/WN, no apparent distress Respiratory: no respiratory distress, no accessory muscle use Shoulder: normal inspection, non-tender Elbow/Forearm: normal inspection, Bilateral, pain (bilateral elbow tenderness to palpation without apparent swelling or erythema. ) Wrist: Yes normal inspection, Yes non-tender Hand: normal inspection, non-tender 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: alert, normal mood/affect, oriented x 3 Skin: normal color, warm/dry Progress/Results/Core Measures Results/Orders My Orders Orders - CHALINO LESLIE APRN Elbow, Bilateral, 3 View (06/03/20 19:49) Ketorolac Injection (Toradol Injection) (06/03/20 20:00) Rx-Hydrocodone/Apap 5-325 Mg (Rx-Vicodin (06/03/20 20:00) Vital Signs/I&O 06/03/20 19:18 Temp 37.0 Pulse 70 Resp 16 B/P (MAP) 138/79 (98) O2 Delivery Room Air Blood Pressure Mean: 98 Departure Communication (Admissions) Language line was used for translation. Impression Primary Impression: Pain of both elbows Disposition: HOME, SELF-CARE Condition: Stable Departure-Patient Inst. Decision time for Depature: 19:54 Referrals: [facility]/ELIZABETH (PCP) Primary Care Physician LAINA MARIN DO (Family) Primary Care Physician Patient Instructions: Joint Pain Add. Discharge Instructions: 1. I agree with the prednisone. Continue to use this. Use the other pills that we gave you tonight as needed for pain control. All discharge instructions reviewed with patient and/or family. Voiced understanding. CHALINO LESLIE APRN Jun 03, 2020 19:55
[2020-06-03] MEDS ORDERED: KETOROLAC 60 MG/2 ML VIAL IM ONE (20:00)
[2020-06-03] MEDS ORDERED: RX-HYDROCODONE/APAP 5/325 MG #4 TAB PK PO PRN (20:00)
--- NOTE | 2020-06-03 20:23 | Diagnostic Imaging Report ---
INDICATION: Pain. COMPARISON: None available. TECHNIQUE: Six radiographs of the bilateral elbows dated June 03, 2020. FINDINGS: No acute fracture or dislocation. No destructive osseous process. Joint spaces are well maintained. There is no joint effusion. No suspicious radiopaque foreign body. IMPRESSION: No acute osseous abnormality. Dictated by: Dictated on workstation # [id number]
[2020-06-03 20:36] VITALS: BP 134/78
== END 2020-06-03 20:36 | disposition home or self-care (01) ==
LOC: EDUNIT# 19:10 → ER 19:12
DX: M25.522 Pain in left elbow (principal); M25.521 Pain in right elbow; K21.9 Gastro-esophageal reflux disease without esophagitis; E11.9 Type 2 diabetes mellitus without complications; F32.9 Major depressive disorder, single episode, unspecified; Z79.84 Long term (current) use of oral hypoglycemic drugs; Z88.1 Allergy status to other antibiotic agents; Z88.8 Allergy status to other drugs, medicaments and biological substances

== ENCOUNTER 2020-06-11 14:05 | Emergency (ER) | payer SELFPAY ==
--- NOTE | 2020-06-11 14:44 | NUR ---
ATTEMPT TO CALL PT BACK TO THE ROOM ET SHE WAS NOT IN THE WAITING ROOM.
--- NOTE | 2020-06-11 14:50 | NUR ---
ATTEMPT TO CALL PT BACK TO ROOM AND PT NOT IN LOBBY
== END 2020-06-11 14:50 | disposition left against medical advice (07) ==
LOC: EDUNIT# 14:05 → ER 14:08
DX: M79.601 Pain in right arm (principal); M79.602 Pain in left arm

== ENCOUNTER 2020-12-13 13:02 | Emergency (ER) | payer OTHER ==
[~2020-12-13] VITALS: Ht 165 cm; Wt 72.0 kg
--- NOTE | 2020-12-13 13:22 | ED General ---
General Chief Complaint: General Problems/Pain Stated Complaint: TIRED,BODY ACHES,BACK PAIN Source of Information: Patient Exam Limitations: No Limitations History of Present Illness Date Seen by Provider: December 13, 2020 Time Seen by Provider: 13:21 Initial Comments To ER with 1 week history of general fatigue, diffuse body aches, mid back pain on both sides, central chest pain worse with deep breathing. She denies shortness of breath or cough. She does report chills. She has had both Covid vaccines. No nausea vomiting diarrhea. No urinary symptoms. Timing/Duration: 1 Week Severity: Moderate Associated Systoms: Chest Pain, Weakness Allergies and Home Medications Allergies Coded Allergies: ciprofloxacin (Verified Allergy, Unknown, 03/10/18) ciprofloxacin HCl (Verified Allergy, Unknown, 03/10/18) olanzapine (Unverified Adverse Reaction, Mild, rash, 01/15/12) Home Medications Fluoxetine Hcl 20 Mg Capsule, 1 EACH PO DAILY, (Reported) Ibuprofen 600 Mg Tablet, 600 MG PO Q6H PRN for PAIN Prescribed by: KAVON MEYERS on 11/12/13151 Lamotrigine 25 Mg Tab, 25 MG PO DAILY, (Reported) Meloxicam 15 Mg Tablet, 15 MG PO DAILY Prescribed by: CHALINO LESLIE on 05/12/18 1259 Metformin Hcl 500 Mg Tab.sr.24h, 2 EACH PO BID WITH MEALS, (Reported) Ondansetron 4 Mg Tab.rapdis, 4 MG PO Q6H PRN for NAUSEA/VOMITING Prescribed by: CASEY MANCIA on 08/24/19 0618 Ondansetron HCl 4 Mg Tab, 4 MG PO Q4H PRN for nausea and vomiting Prescribed by: PEYMAN SANDERS on 02/17/18 152 Pantoprazole Sodium 20 Mg Tablet.dr, 20 MG PO DAILY Prescribed by: PEYMAN SANDERS on 02/17/18 152 Polyethylene Glycol 17 Gm Pack, 17 GM PO DAILY PRN for CONSTIPATION 1-2 times daily FOR CONSTIPATION Prescribed by: KAVON MEYERS on 11/12/13 015 Quetiapine Fumarate 25 Mg Tablet, 3 TAB PO HS, (Reported) Sulfamethoxazole/Trimethoprim 1 Each Tablet, 1 EACH PO BID Prescribed by: PEYMAN SANDERS on 02/17/18 152 Patient Home Medication List Home Medication List Reviewed: Yes Review of Systems Review of Systems Constitutional: see HPI, chills, malaise, weakness EENTM: see HPI Respiratory: no symptoms reported Cardiovascular: see HPI, chest pain Genitourinary: no symptoms reported Musculoskeletal: see HPI, back pain Skin: no symptoms reported Psychiatric/Neurological: No Symptoms Reported Hematologic/Lymphatic: No Symptoms Reported Immunological/Allergic: no symptoms reported Past Rfkrron-Ntkgjd-Agmbiw Hx Patient Social History 2nd Hand Smoke Exposure: No Recent Hopitalizations: No Immunizations Up To Date Tetanus Booster (TDap): Unknown Date of Influenza Vaccine: Jul 03, 2013 Seasonal Allergies Seasonal Allergies: No Past Medical History Surgeries: Yes Appendectomy, Tubal Ligation Respiratory: No Cardiac: No Neurological: No Reproductive Disorders: No (STATES MENSES EVERY MONTH , NONE IN SEP) Genitourinary: No Gastrointestinal: Yes Gastroesophageal Reflux, Chronic Constipation Musculoskeletal: No Endocrine: Yes Diabetes, Non-Insulin dep HEENT: No Cancer: No Psychosocial: Yes Sleep Difficulties, Anxiety, Depression Integumentary: No Blood Disorders: No Physical Exam Vital Signs Vital Signs - First Documented 12/13/20 13:14 Temp 35.4 Pulse 93 Resp 18 B/P (MAP) 141/105 (117) Pulse Ox 99 O2 Delivery Room Air Capillary Refill : Height, Weight, BMI Height: 5'0" Weight: 178lbs. 0oz. 80.675765wx; 28.00 BMI Method:Stated General Appearance: No Apparent Distress, WD/WN Eyes: Bilateral Eye Normal Inspection, Bilateral Eye PERRL, Bilateral Eye EOMI HEENT: PERRL/EOMI, TMs Normal, Normal ENT Inspection Neck: Full Range of Motion, Normal Inspection Respiratory: No Accessory Muscle Use, No Respiratory Distress Cardiovascular: Regular Rate, Rhythm, Normal Peripheral Pulses Gastrointestinal: Non Tender, Soft Extremity: Normal Capillary Refill 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: Alert, Oriented x3 Skin: Normal Color, Warm/Dry Progress/Results/Core Measures Suspected Sepsis SIRS Temperature: Pulse: Respiratory Rate: Laboratory Tests 12/13/20 13:32: White Blood Count 14.7H Blood Pressure / Mean: Laboratory Tests 12/13/20 13:32: Creatinine 0.73, Platelet Count 463H, Total Bilirubin 0.2 Results/Orders Lab Results Laboratory Tests Test 12/13/20 13:32 12/13/20 14:41 Range/Units White Blood Count 14.7 H 4.3-11.0 10^3/uL Red Blood Count 4.20 3.80-5.11 10^6/uL Hemoglobin 12.2 11.5-16.0 g/dL Hematocrit 37 35-52 % Mean Corpuscular Volume 88 80-99 fL Mean Corpuscular Hemoglobin 29 25-34 pg Mean Corpuscular Hemoglobin Concent 33 32-36 g/dL Red Cell Distribution Width 12.9 10.0-14.5 % Platelet Count 463 H 130-400 10^3/uL Mean Platelet Volume 10.5 9.0-12.2 fL Immature Granulocyte % (Auto) 0 % Neutrophils (%) (Auto) 65 42-75 % Lymphocytes (%) (Auto) 27 12-44 % Monocytes (%) (Auto) 5 0-12 % Eosinophils (%) (Auto) 3 0-10 % Basophils (%) (Auto) 1 0-10 % Neutrophils # (Auto) 9.5 H 1.8-7.8 10^3/uL Lymphocytes # (Auto) 3.9 1.0-4.0 10^3/uL Monocytes # (Auto) 0.7 0.0-1.0 10^3/uL Eosinophils # (Auto) 0.4 H 0.0-0.3 10^3/uL Basophils # (Auto) 0.1 0.0-0.1 10^3/uL Immature Granulocyte # (Auto) 0.1 0.0-0.1 10^3/uL Neutrophils % (Manual) 66 % Lymphocytes % (Manual) 28 % Monocytes % (Manual) 4 % Eosinophils % (Manual) 2 % Blood Morphology Comment NORMAL Urine Color YELLOW Urine Clarity CLEAR Urine pH 6.0 5-9 Urine Specific Bazine 1.025 H 1.016-1.022 Urine Protein NEGATIVE NEGATIVE Urine Glucose (UA) NEGATIVE NEGATIVE Urine Ketones NEGATIVE NEGATIVE Urine Nitrite NEGATIVE NEGATIVE Urine Bilirubin NEGATIVE NEGATIVE Urine Urobilinogen 0.2 < = 1.0 MG/DL Urine Leukocyte Esterase NEGATIVE NEGATIVE Urine RBC (Auto) NEGATIVE NEGATIVE Urine RBC NONE /HPF Urine WBC RARE /HPF Urine Squamous Epithelial Cells 2-5 /HPF Urine Crystals PRESENT H /LPF Urine Amorphous Sediment FEW LIDYA URATES H /LPF Urine Bacteria NEGATIVE /HPF Urine Casts NONE /LPF Urine Mucus NEGATIVE /LPF Urine Culture Indicated NO Sodium Level 138 135-145 MMOL/L Potassium Level 4.1 3.6-5.0 MMOL/L Chloride Level 102 98-107 MMOL/L Carbon Dioxide Level 23 21-32 MMOL/L Anion Gap 13 5-14 MMOL/L Blood Urea Nitrogen 10 7-18 MG/DL Creatinine 0.73 0.60-1.30 MG/DL Estimat Glomerular Filtration Rate > 60 BUN/Creatinine Ratio 14 Glucose Level 173 H 70-105 MG/DL Calcium Level 9.2 8.5-10.1 MG/DL Corrected Calcium 9.1 8.5-10.1 MG/DL Total Bilirubin 0.2 0.1-1.0 MG/DL Aspartate Amino Transf (AST/SGOT) 24 5-34 U/L Alanine Aminotransferase (ALT/SGPT) 27 0-55 U/L Alkaline Phosphatase 76 40-136 U/L Troponin I < 0.028 <0.028 NG/ML C-Reactive Protein High Sensitivity 0.98 H 0.00-0.50 MG/DL B-Type Natriuretic Peptide < 10.0 <100.0 PG/ML Total Protein 8.1 6.4-8.2 GM/DL Albumin 4.1 3.2-4.5 GM/DL SARS-CoV-2 RNA (RT-PCR) Not Detected Not Detecte My Orders Orders - CHALINO LESLIE APRN Cbc With Automated Diff (12/13/20 13:19) Comprehensive Metabolic Panel (12/13/20 13:19) Hs C Reactive Protein (12/13/20 13:19) Ua Culture If Indicated (12/13/20 13:19) Chest 1 View, Ap/Pa Only (12/13/20 13:19) Ekg Tracing (12/13/20 13:19) Troponin I (12/13/20 13:19) Manual Differential (12/13/20 13:32) Covid 19 Inhouse Test (12/13/20 14:29) BNP (12/13/20 14:30) Ibuprofen Tablet (Motrin Tablet) (12/13/20 14:45) Medications Given in ED Current Medications Medications Dose Ordered Sig/Sammie Route Start Time Stop Time Status Last Admin Dose Admin Ibuprofen 800 mg ONCE ONCE PO 12/13/20 14:45 12/13/20 14:46 DC 12/13/20 14:50 800 MG Vital Signs/I&O 5/13/21 13:14 Temp 35.4 Pulse 93 Resp 18 B/P (MAP) 141/105 (117) Pulse Ox 99 O2 Delivery Room Air Capillary Refill : Diagnostic Imaging Diagonstic Imaging: Xray Plain Films/CT/US/NM/MRI: chest Comments NAME: RAD[facility] REC#: [id number] PT STATUS: REG ER : 1975 PHYSICIAN: CHALINO LESLIE APRN ADMIT DATE: 12/13/20/ER Draft Date of Exam:12/13/20 CHEST 1 VIEW, AP/PA ONLY EXAMINATION: Chest, 1 view. HISTORY: Chest pain. COMPARISON: 09/26/2013. FINDINGS: The heart size and pulmonary vasculature are normal. There are mild interstitial opacities within the lung bases. No pleural effusion or pneumothorax. The osseous structures are intact. IMPRESSION: Mild interstitial opacities in the lung bases which could represent atelectasis, edema, or atypical infection. Dictated on workstation # [id number] Dict: 12/13/20 1423 Trans: 12/13/20 1425 [id number] Interpreted by: DENNIS FIGUEROA DO Electronically signed by: Departure Communication (Admissions) EKG is normal sinus rhythm without ectopy with normal intervals and no ST segment changes. She has some interstitial opacities in the bilateral bases. She has had both Covid vaccines but I will go ahead and swab her anyway. I will add a BNP as well. If these are both normal then I will discharged home on some steroids and antibiotics. Impression Primary Impression: Pneumonia Disposition: 01 HOME, SELF-CARE Condition: Stable Departure-Patient Inst. Decision time for Depature: 15:42 Referrals: NO,LOCAL PHYSICIAN (PCP) Primary Care Physician Patient Instructions: Pneumonia, Adult ED Scripts Doxycycline Hyclate (Doxycycline Hyclate) 100 Mg Tablet 100 MG PO BID, #20 TAB 0 Refills Prov: CHALINO LESLIE APRN 12/13/20 Prednisone (Prednisone) 20 Mg Tab 40 MG PO DAILY, #6 TAB Prov: CHALINO LESLIE APRN 12/13/20 CHALINO LESLIE APRN December 13, 2020 13:22
[2020-12-13 13:42] LABS: BILIRUBIN,URINE NEGATIVE (NEGATIVE); CLARITY,URINE CLEAR; COLOR,URINE YELLOW; GLUCOSE, URINE (UA) NEGATIVE (NEGATIVE); KETONES,URINE NEGATIVE (NEGATIVE); LEUKOCYTE ESTERASE ,URINE NEGATIVE (NEGATIVE); NITRITE,URINE NEGATIVE (NEGATIVE); PROTEIN,URINE NEGATIVE (NEGATIVE)
[2020-12-13 13:43] LABS: BASOPHILS # (AUTO) 0.1 10^3/uL (0.0-0.1); BASOPHILS % (AUTO) 1 % (0-10); EOSINOPHILS # (AUTO) 0.4 10^3/uL (0.0-0.3); EOSINOPHILS % (AUTO) 3 % (0-10); HEMATOCRIT 37 % (35-52); HEMOGLOBIN 12.2 g/dL (11.5-16.0); LYMPHOCYTES # (AUTO) 3.9 10^3/uL (1.0-4.0); LYMPHOCYTES % (AUTO) 27 % (12-44); MEAN CORPUSCULAR HEMOGLOBIN 29 pg (25-34); MEAN CORPUSCULAR HGB CONC 33 g/dL (32-36); MEAN CORPUSCULAR VOLUME 88 fL (80-99); MEAN PLATELET VOLUME 10.5 fL (9.0-12.2); MONOCYTES # (AUTO) 0.7 10^3/uL (0.0-1.0); MONOCYTES % (AUTO) 5 % (0-12); NEUTROPHILS # (AUTO) 9.5 10^3/uL (1.8-7.8); NEUTROPHILS % (AUTO) 65 % (42-75); PLATELET COUNT 463 10^3/uL (130-400); WHITE BLOOD COUNT 14.7 10^3/uL (4.3-11.0)
[2020-12-13 13:55] LABS: AMORPHOUS SEDIMENT,UR FEW AMOR URATES /LPF; BACTERIA,URINE NEGATIVE /HPF; WBC,URINE RARE /HPF
[2020-12-13 14:02] LABS: EOSINOPHILS % (MANUAL) 2 %; LYMPHOCYTES % (MANUAL) 28 %; MONOCYTES % (MANUAL) 4 %; NEUTROPHILS % (MANUAL) 66 %; RBC MORPH NORMAL
[2020-12-13 14:07] LABS: ALBUMIN 4.1 GM/DL (3.2-4.5); CHLORIDE 102 MMOL/L (98-107); POTASSIUM 4.1 MMOL/L (3.6-5.0); SODIUM 138 MMOL/L (135-145)
[2020-12-13 14:08] LABS: CALCIUM 9.2 MG/DL (8.5-10.1)
[2020-12-13 14:10] LABS: GLUCOSE 173 MG/DL (70-105); TOTAL PROTEIN 8.1 GM/DL (6.4-8.2)
[2020-12-13 14:11] LABS: BILIRUBIN,TOTAL 0.2 MG/DL (0.1-1.0); CARBON DIOXIDE 23 MMOL/L (21-32)
[2020-12-13 14:13] LABS: ALKALINE PHOSPHATASE 76 U/L (40-136); CREATININE SERUM 0.73 MG/DL (0.60-1.30); GFR ESTIMATED > 60
[2020-12-13 14:14] LABS: BUN/CREATININE RATIO 14
[2020-12-13 14:16] LABS: ALANINE AMINOTRANSFERASE 27 U/L (0-55)
--- NOTE | 2020-12-13 14:25 | Diagnostic Imaging Report ---
EXAMINATION: Chest, 1 view. HISTORY: Chest pain. COMPARISON: 09/26/2013. FINDINGS: The heart size and pulmonary vasculature are normal. There are mild interstitial opacities within the lung bases. No pleural effusion or pneumothorax. The osseous structures are intact. IMPRESSION: Mild interstitial opacities in the lung bases which could represent atelectasis, edema, or atypical infection. Dictated by: Dictated on workstation # [id number]
[2020-12-13] MEDS ORDERED: IBUPROFEN 800 MG (MOTRIN) TAB PO ONE (14:45)
[2020-12-13] MEDS ORDERED: PRD20T PO (15:44)
[2020-12-13] MEDS ORDERED: DOXY100T2 PO (15:44)
[2020-12-13 15:51] VITALS: BP 141/105
== END 2020-12-13 15:49 | disposition home or self-care (01) ==
LOC: EDUNIT# 13:02 → ER 13:04
DX: J18.9 Pneumonia, unspecified organism (principal); E11.9 Type 2 diabetes mellitus without complications; K21.9 Gastro-esophageal reflux disease without esophagitis; Z20.822 Contact with and (suspected) exposure to COVID-19; Z88.1 Allergy status to other antibiotic agents; Z88.8 Allergy status to other drugs, medicaments and biological substances; Z79.84 Long term (current) use of oral hypoglycemic drugs; Z79.899 Other long term (current) drug therapy
CPT/HCPCS: 36415; 71045; 80053; 81000; 83880; 84484; 85007; 85027; 86141; 87636; 93005

== ENCOUNTER 2021-01-22 08:23 | Outpatient (RCR) | payer OTHER ==
[~2021-01-22 08:23] MED LIST changes: +PRD20T PO; +SULF1TAB38 PO
[2021-01-22 09:30] LABS: BASOPHILS # (AUTO) 0.1 10^3/uL (0.0-0.1); BASOPHILS % (AUTO) 1 % (0-10); EOSINOPHILS # (AUTO) 0.4 10^3/uL (0.0-0.3); EOSINOPHILS % (AUTO) 3 % (0-10); HEMATOCRIT 38 % (35-52); HEMOGLOBIN 12.3 g/dL (11.5-16.0); LYMPHOCYTES # (AUTO) 3.6 10^3/uL (1.0-4.0); LYMPHOCYTES % (AUTO) 26 % (12-44); MEAN CORPUSCULAR HEMOGLOBIN 29 pg (25-34); MEAN CORPUSCULAR HGB CONC 33 g/dL (32-36); MEAN CORPUSCULAR VOLUME 89 fL (80-99); MEAN PLATELET VOLUME 10.2 fL (9.0-12.2); MONOCYTES # (AUTO) 0.7 10^3/uL (0.0-1.0); MONOCYTES % (AUTO) 5 % (0-12); NEUTROPHILS # (AUTO) 9.2 10^3/uL (1.8-7.8); NEUTROPHILS % (AUTO) 66 % (42-75); PLATELET COUNT 460 10^3/uL (130-400)
== END 2021-02-15 12:54 | disposition home or self-care (01) ==
LOC: ONC 08:23
PROVIDERS: ATTEND Internal Medicine Hematology & Oncology
DX: Z12.31 Encounter for screening mammogram for malignant neoplasm of breast (principal); D72.829 Elevated white blood cell count, unspecified
CPT/HCPCS: 85025; G0463; 99214

== ENCOUNTER → 2021-01-30 | Outpatient (CLI) | payer OTHER ==
[~2021-01-30] MED LIST changes: -SULF1TAB38 PO
--- NOTE | 2021-01-30 12:38 | Diagnostic Imaging Report ---
Indication: Routine screening. Comparison is made with prior mammogram from 10/26/2017. 2-D and 3-D bilateral screening mammography was performed with CAD. Both breasts are heterogeneously dense, limiting the sensitivity of mammography. A nodular density in the outer left breast appears stable. No new mass or malignant appearing microcalcifications are seen. Axillae are unremarkable. IMPRESSION: BI-RADS Category 2 No mammographic features suspicious for malignancy are identified. ACR BI-RADS Category 2: Benign findings. Result letter will be mailed to the patient. Note: At least 10% of breast cancer is not imaged by mammography. Dictated by: Dictated on workstation # [id number]
== END ==
LOC: RAD 10:15
PROVIDERS: ATTEND Internal Medicine Hematology & Oncology
DX: Z12.31 Encounter for screening mammogram for malignant neoplasm of breast (principal)
CPT/HCPCS: 77063; 77067

== ENCOUNTER 2021-07-10 19:39 | Emergency (ER) | payer OTHER ==
[~2021-07-10 19:39] MED LIST changes: +SULF1TAB38 PO
--- OUTSIDE RECORDS SUMMARY | 2021-07-10 19:45 | XMS REPORT | Clinical Summary ---
Author Author [facility] Organization [facility] Address Unknown Phone Unavailable Care Team Providers Care Boring Machine Set Up Operator Jig Name Role Phone Indra Mcdowell PEDIATRIC SPORTS MEDICINE SPECIALIST PCP Allergies Comments Active Allergy Reactions Severity Noted Date Ciprofloxacin Itching 07/11/2013 Hydrocodone-Acetaminophen Itching, Rash Low 11/2016 Olanzapine Itching 07/11/2013 Medications End Date Status Medication Sig Dispensed Refills Start Date Active QUEtiapine (SEROQUEL) 25 Take 3 tabs 30 tablet 0 0 /30/201 MG tablet by mouth 4 daily at night. Active Acetaminophen (TYLENOL Take 2 0 PO)Indications: Pain tablets by mouth every 6 (six) hours as needed. Indications: Pain Active metroNIDAZOLE (FLAGYL) BID X 7 days 14 tablet 0 500 MG tablet 6 Active traMADol (ULTRAM) 50 MG Take 1 tablet 20 tablet 0 tabletIndications: Viral (50 mg total) 7 syndrome by mouth every 6 (six) hours as needed for Mild Pain. Do not exceed a daily dose of 200 mg Active naproxen (NAPROSYN) 375 Take 1 tablet 30 tablet 0 01/04/ MG tabletIndications: (375 mg 7 Tendonitis total) by mouth 2 (two) times daily with meals. Active Problems Problem Noted Date Chest pain 04/27/2014 Immunizations Name Administration Dates Next Due [id number],Live Nasal ([employer] 09/07/2009 registry) Influenza IIV3 MDV 05/25/2013 (Multi-dose vial) Pneumococcal 04/28/2014 Polysaccharide (23-valent) Social History Date Tobacco Use Types Packs/Day Years Used Never Smoker Smokeless Tobacco: Never Used Comments Alcohol Use Standard Drinks/Week No 0 (1 standard drink = 0.6 o z pure alcohol) Sex Assigned at Date Recorded Not on file Last Filed Vital Signs Reading Time Taken Comments Vital Sign 123/88 01/04/2017 7:59 AM CDT Blood Pressure 73 01/04/2017 7:59 AM CDT Pulse 36.4 C (97.5 F) 01/04/2017 7:59 AM CDT Temperature 18 01/04/2017 7:59 AM CDT Respiratory Rate 98% 01/04/2017 7:59 AM CDT Oxygen Saturation - - Inhaled Oxygen Concentration 71.2 kg (157 lb) 01/04/2017 7:59 AM CDT Weight 157.5 cm (5' 2") 01/04/2017 7:59 AM CDT Height 28.72 01/04/2017 7:59 AM CDT Body Mass Index Plan of Treatment Health Maintenance Due Date Last Done Comments Varicella Vaccines (1 of 1974 2 - 2-dose childhood series) COVID-19 Vaccine (1) 1978 DTaP,Tdap,and Td Vaccines 01/08/1992 (1 - Tdap) MMR Vaccines-Adult 01/08/1992 Cervical Cancer Screening 1994 Influenza Vaccine (#1) 2021 05/25/2013 Pneumo-Vaccine: 65+Yrs (1 2038 04/28/2014 of 1 - PPSV23) Pneumo-Vaccine: Peds (0-5 Aged Out 04/28/2014 No l onger eligible based on patient's age to Yrs) & At-Risk Patients complete this topic (6-64 Yrs) Hepatitis C Screening Completed 10/23/2015 HIB Vaccines Aged Out No longer eligible based on patient's age to complete this topic IPV Vaccines Aged Out No longer eligible based on patient's age to complete this topic Meningococcal Vaccine Aged Out No longer eligib le based on patient's age to complete this topic Rotavirus Vaccines Aged Out No longer eligible based on patient's age to complete this topic Results Not on filefrom Last 3 Months Advance Directives For more information, please contact: [phone] 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
--- OUTSIDE RECORDS SUMMARY | 2021-07-10 19:45 | XMS REPORT | Clinical Summary ---
Demographics Home Phone Preferred Language American Marital Status Single Buddhist Affiliation Unknown Race Unknown Ethnic Group Not or Author Author [facility] ity Organization [facility] ity Address Unknown Phone Unavailable Care Team Providers Care Dulite Machine Bluer Name Role Phone PP Unavailable Allergies Comments Active Allergy Reactions Severity Noted Date Ciprofloxacin Itching 10/31/2014 Citalopram Unknown 10/31/2014 Medications Not on file Active Problems Problem Noted Date Abscess 11/13/2014 Social History Date Tobacco Use Types Packs/Day Years Used Never Smoker Smokeless Tobacco: Never Used Comments Alcohol Use Standard Drinks/Week No 0 (1 standard drink = 0.6 o z pure alcohol) Sex Assigned at Date Recorded Not on file Plan of Treatment Not on file Results Not on filefrom Last 3 Months
--- OUTSIDE RECORDS SUMMARY | 2021-07-10 19:45 | XMS REPORT | Clinical Summary ---
Author Author [facility] Health Organization [facility] Address Unknown Phone Unavailable Care Team Providers Care Type Photography Supervisor Name Role Phone None, Pcp MD PCP Unavailable Source Comments [facility] (Labor and Delivery) documents [facility] appear [facility] Allergies Comments Active Allergy Reactions Severity Noted Date Ciprofloxacin Itching 10/31/2014 Citalopram Unknown 10/31/2014 Medications Please verify current medications with patient. No known medications Active Problems Problem Noted Date Abscess 11/13/2014 Social History Date Tobacco Use Types Packs/Day Years Used Never Smoker Smokeless Tobacco: Never Used Comments Alcohol Use Standard Drinks/Week No 0 (1 standard drink = 0.6 o z pure alcohol) Sex Assigned at Date Recorded Not on file Last Filed Vital Signs Reading Time Taken Comments Vital Sign 135/84 09/27/2016 2:14 PM GARAGE WORKER Blood Pressure 88 09/27/2016 2:14 PM GARAGE WORKER Pulse 36.6 C (97.9 F) 09/27/2016 2:14 PM GARAGE WORKER Temperature 16 09/27/2016 12:02 PM GARAGE WORKER Respiratory Rate 99% 09/27/2016 2:14 PM GARAGE WORKER Oxygen Saturation - - Inhaled Oxygen Concentration 72.6 kg (160 lb) 09/27/2016 12:02 PM GARAGE WORKER Weight 154.9 cm (5' 1") 09/27/2016 12:02 PM GARAGE WORKER Height 30.23 09/27/2016 12:02 PM GARAGE WORKER Body Mass Index Plan of Treatment Health Maintenance Due Date Last Done Comments Cervical Cancer Screening 1975 HPV/Cotest 1975 Pap Smear 1975 COVID-19 Vaccine (1) 1985 Influenza Vaccine (#1) 2021 HPV Vaccine Aged Out No longer eligible based on patient's age to complete this topic Hepatitis A Vaccine Aged Out No longer eligible based on patient's age to complete this topic Hepatitis B Vaccine Aged Out No longer eligible based on patient's age to complete this topic Hib Vaccine Aged Out No longer eligible based on patient's age to complete this topic IPV Vaccine Aged Out No longer eligible based on patient's age to complete this topic Meningococcal Vaccine Aged Out No longer eligib le based on patient's age to (MCV4) complete this topic Pneumococcal Vaccine: Aged Out No longer eligib le based on patient's age to Pediatrics (0 to 5 Years) complete this topic and At-Risk Patients (6 to 64 Years) Rotavirus Vaccine Aged Out No longer eligible based on patient's age to complete this topic Results Not on filefrom Last 3 Months Advance Directives 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
[2021-07-10] MEDS ORDERED: LOPERAMIDE 2 MG (IMODIUM) TABLET PO STA (20:00)
[2021-07-10] MEDS ORDERED: ONDANSETRON 4 MG/2 ML (SDV) Z0FRAN IVP STA (20:00)
[2021-07-10] MEDS ORDERED: LACTATED RINGERS 1,000 ML IV ONE (20:00)
[2021-07-10 20:12] LABS: BASOPHILS % (AUTO) 0 % (0-10); EOSINOPHILS # (AUTO) 0.2 10^3/uL (0.0-0.3); EOSINOPHILS % (AUTO) 2 % (0-10); HEMATOCRIT 36 % (35-52); LYMPHOCYTES # (AUTO) 3.2 10^3/uL (1.0-4.0); LYMPHOCYTES % (AUTO) 27 % (12-44); MEAN CORPUSCULAR HEMOGLOBIN 29 pg (25-34); MEAN CORPUSCULAR HGB CONC 33 g/dL (32-36); MEAN CORPUSCULAR VOLUME 89 fL (80-99); MEAN PLATELET VOLUME 10.6 fL (9.0-12.2); MONOCYTES # (AUTO) 0.8 10^3/uL (0.0-1.0); MONOCYTES % (AUTO) 6 % (0-12); NEUTROPHILS # (AUTO) 7.6 10^3/uL (1.8-7.8); NEUTROPHILS % (AUTO) 65 % (42-75); PLATELET COUNT 377 10^3/uL (130-400); WHITE BLOOD COUNT 11.8 10^3/uL (4.3-11.0)
[2021-07-10 20:14] VITALS: BP 115/80
[2021-07-10 20:16] LABS: BILIRUBIN,URINE NEGATIVE (NEGATIVE); CLARITY,URINE CLEAR; COLOR,URINE YELLOW; GLUCOSE, URINE (UA) NEGATIVE (NEGATIVE); KETONES,URINE NEGATIVE (NEGATIVE); LEUKOCYTE ESTERASE ,URINE NEGATIVE (NEGATIVE); NITRITE,URINE NEGATIVE (NEGATIVE); PH,URINE 6.5 (5-9); PROTEIN,URINE NEGATIVE (NEGATIVE)
[2021-07-10 20:19] LABS: ALBUMIN 3.8 GM/DL (3.2-4.5); POTASSIUM 3.8 MMOL/L (3.6-5.0)
[2021-07-10 20:20] LABS: CALCIUM 8.7 MG/DL (8.5-10.1)
[2021-07-10 20:21] LABS: TOTAL PROTEIN 7.3 GM/DL (6.4-8.2)
[2021-07-10 20:23] LABS: BILIRUBIN,TOTAL 0.2 MG/DL (0.1-1.0)
[2021-07-10 20:25] LABS: CREATININE SERUM 0.73 MG/DL (0.60-1.30)
[2021-07-10 20:27] LABS: BACTERIA,URINE NEGATIVE /HPF; WBC,URINE 0-2 /HPF
[2021-07-10] MEDS ORDERED: RX-ONDANSETRON 4 MG ODT (ZOFRAN) PPK #4 PO STA (21:28)
--- NOTE | 2021-07-10 21:28 | ED GI ---
General Chief Complaint: Abdominal/GI Problems Stated Complaint: VOMITING, DIRRHEA Nursing Triage Note: Pt arrives via POV from home with c/o ABD bloating et N/V/D; onset three days. Pt reports being seen at the [facility], was sent home with nausea medications but states they have run out. Pt reports receiving COVID booster yesterday. History of Present Illness Date Seen by Provider: Jul 10, 2021 Time Seen by Provider: 20:21 Initial Comments 46-year-old female presents with abdominal discomfort, nausea, vomiting and diarrhea for the last 3 days. She was seen at [facility] and was sent home with medications but did not have improvement. She did receive her COVID booster yesterday. She reports vomiting approximately 1 hour prior to arrival. She has no history of chronic GI problems or abdominal surgeries. Patient is Occitan beaking, bilingual interpreter line used for visit. Timing/Duration: 2-3 Days Severity/Quality: Moderate Location: Generalized Abdomen Radiation: No Radiation Associated Symptoms: No Fever/Chills, No Heartburn; Nausea/Vomiting Allergies and Home Medications Allergies Coded Allergies: ciprofloxacin (Verified Allergy, Unknown, 03/10/18) ciprofloxacin HCl (Verified Allergy, Unknown, 03/10/18) olanzapine (Unverified Adverse Reaction, Mild, rash, 01/15/12) Patient Home Medication List Home Medication List Reviewed: Yes Doxycycline Hyclate (Doxycycline Hyclate) 100 Mg Tablet, 100 MG PO BID Prescribed by: CHALINO LESLIE on 12/13/20 1544 Fluoxetine Hcl (Fluoxetine Hcl) 20 Mg Capsule, 1 EACH PO DAILY, (Reported) Entered as Reported by: GONZALEZ REYES on 07/17/12 1613 Ibuprofen (Ibuprofen) 600 Mg Tablet, 600 MG PO Q6H PRN for PAIN Prescribed by: KAVON MEYERS on 11/12/13 0152 Lamotrigine (Lamictal) 25 Mg Tab, 25 MG PO DAILY, (Reported) Entered as Reported by: ROMEO HENDERSON on 09/26/13 165 Meloxicam (Meloxicam) 15 Mg Tablet, 15 MG PO DAILY Prescribed by: CHALINO LESLIE on 05/12/18 1259 Metformin Hcl (Metformin Er 500MG) 500 Mg Tab.sr.24h, 2 EACH PO BID WITH MEALS, (Reported) Entered as Reported by: ROMEO HENDERSON on 09/26/13 1650 Ondansetron (Ondansetron Odt) 4 Mg Tab.rapdis, 4 MG PO Q6H PRN for NAUSEA/VOMITING Prescribed by: CASEY MANCIA on 08/24/19 0618 Ondansetron HCl (Zofran) 4 Mg Tab, 4 MG PO Q4H PRN for nausea and vomiting Prescribed by: PEYMAN SANDERS on 02/17/18 152 Pantoprazole Sodium (Protonix) 20 Mg Tablet.dr, 20 MG PO DAILY Prescribed by: PEYMAN SANDERS on 02/17/18 1523 Polyethylene Glycol (Miralax 17 Gm Packet) 17 Gm Pack, 17 GM PO DAILY PRN for CONSTIPATION Prescribed by: KAVON MEYERS on 11/12/13 0152 Prednisone (Prednisone) 20 Mg Tab, 40 MG PO DAILY Prescribed by: CHALINO LESLIE on 12/13/20 1544 Quetiapine Fumarate (Seroquel 25 Mg) 25 Mg Tablet, 3 TAB PO HS, (Reported) Entered as Reported by: ROMEO HENDERSON on 09/26/13 165 Sulfamethoxazole/Trimethoprim (Bactrim Ds Tablet) 1 Each Tablet, 1 EACH PO BID Prescribed by: PEYMAN SANDERS on 02/17/18 152 Review of Systems Review of Systems Constitutional: no symptoms reported, see HPI Gastrointestinal: See HPI, Abdomen Distended; Denies Abdominal Pain; Diarrhea, Nausea, Vomiting All Other Systems Reviewed Negative Unless Noted: Yes Past Vbticko-Pcqrsu-Blsgja Hx Patient Social History Tobacco Use?: No Use of E-Cig and/or Vaping dev: No Substance use?: No Alcohol Use?: No Pt feels they are or have been: No Immunizations Up To Date Tetanus Booster (TDap): Unknown Seasonal Allergies Seasonal Allergies: No Past Medical History Surgeries: Yes Appendectomy, Tubal Ligation Respiratory: No Cardiac: No Neurological: No Reproductive Disorders: No (STATES MENSES EVERY MONTH , NONE IN SEP) Genitourinary: No Gastrointestinal: Yes Gastroesophageal Reflux, Chronic Constipation Musculoskeletal: No Endocrine: Yes Diabetes, Non-Insulin dep HEENT: No Cancer: No Psychosocial: Yes Sleep Difficulties, Anxiety, Depression Integumentary: No Blood Disorders: No Family Medical History Reviewed Nursing Family Hx Physical Exam Vital Signs Vital Signs - First Documented 07/10/21 20:14 Temp 36.7 Pulse 95 Resp 18 B/P (MAP) 115/80 (92) Pulse Ox 98 O2 Delivery Room Air Capillary Refill : Less Than 3 Seconds Height/Weight/BMI Height: 5'0" Weight: 178lbs. 0oz. 80.346717ip; 26.00 BMI Method:Stated General Appearance: WD/WN, no apparent distress HEENT: PERRL/EOMI, normal ENT inspection, TMs normal, pharynx normal Neck: non-tender, full range of motion, supple, normal inspection Respiratory: chest non-tender, lungs clear, normal breath sounds Cardiovascular: normal peripheral pulses, regular rate, rhythm Gastrointestinal: soft, abnormal bowel sounds; No distended, No guarding, No rebound; tenderness (Trace, generalized); No hernia, No mass Extremities: normal range of motion, non-tender, normal inspection, no pedal edema, no calf tenderness, normal capillary refill Back: normal inspection, no CVA tenderness, no vertebral tenderness 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: no motor/sensory deficits, alert, normal mood/affect, oriented x 3 Skin: normal color, warm/dry; No jaundice Progress/Results/Core Measures Results/Orders Lab Results Laboratory Tests Test 07/10/21 20:06 07/10/21 20:12 Range/Units White Blood Count 11.8 H 4.3-11.0 10^3/uL Red Blood Count 4.08 3.80-5.11 10^6/uL Hemoglobin 12.0 11.5-16.0 g/dL Hematocrit 36 35-52 % Mean Corpuscular Volume 89 80-99 fL Mean Corpuscular Hemoglobin 29 25-34 pg Mean Corpuscular Hemoglobin Concent 33 32-36 g/dL Red Cell Distribution Width 13.1 10.0-14.5 % Platelet Count 377 130-400 10^3/uL Mean Platelet Volume 10.6 9.0-12.2 fL Immature Granulocyte % (Auto) 0 % Neutrophils (%) (Auto) 65 42-75 % Lymphocytes (%) (Auto) 27 12-44 % Monocytes (%) (Auto) 6 0-12 % Eosinophils (%) (Auto) 2 0-10 % Basophils (%) (Auto) 0 0-10 % Neutrophils # (Auto) 7.6 1.8-7.8 10^3/uL Lymphocytes # (Auto) 3.2 1.0-4.0 10^3/uL Monocytes # (Auto) 0.8 0.0-1.0 10^3/uL Eosinophils # (Auto) 0.2 0.0-0.3 10^3/uL Basophils # (Auto) 0.0 0.0-0.1 10^3/uL Immature Granulocyte # (Auto) 0.1 0.0-0.1 10^3/uL Sodium Level 138 135-145 MMOL/L Potassium Level 3.8 3.6-5.0 MMOL/L Chloride Level 103 98-107 MMOL/L Carbon Dioxide Level 24 21-32 MMOL/L Anion Gap 11 5-14 MMOL/L Blood Urea Nitrogen 7 7-18 MG/DL Creatinine 0.73 0.60-1.30 MG/DL Estimat Glomerular Filtration Rate 85 BUN/Creatinine Ratio 10 Glucose Level 83 70-105 MG/DL Calcium Level 8.7 8.5-10.1 MG/DL Corrected Calcium 8.9 8.5-10.1 MG/DL Total Bilirubin 0.2 0.1-1.0 MG/DL Aspartate Amino Transf (AST/SGOT) 26 5-34 U/L Alanine Aminotransferase (ALT/SGPT) 36 0-55 U/L Alkaline Phosphatase 70 40-136 U/L Total Protein 7.3 6.4-8.2 GM/DL Albumin 3.8 3.2-4.5 GM/DL Urine Color YELLOW Urine Clarity CLEAR Urine pH 6.5 5-9 Urine Specific Anderson 1.010 L 1.016-1.022 Urine Protein NEGATIVE NEGATIVE Urine Glucose (UA) NEGATIVE NEGATIVE Urine Ketones NEGATIVE NEGATIVE Urine Nitrite NEGATIVE NEGATIVE Urine Bilirubin NEGATIVE NEGATIVE Urine Urobilinogen 0.2 < = 1.0 MG/DL Urine Leukocyte Esterase NEGATIVE NEGATIVE Urine RBC (Auto) NEGATIVE NEGATIVE Urine RBC NONE /HPF Urine WBC 0-2 /HPF Urine Squamous Epithelial Cells 5-10 /HPF Urine Crystals NONE /LPF Urine Bacteria NEGATIVE /HPF Urine Casts NONE /LPF Urine Mucus NEGATIVE /LPF Urine Culture Indicated NO My Orders Orders - JOSE BORRERO Ondansetron Injection (Zofran Injectio (07/10/21 20:00) Ed Iv/Invasive Line Start (07/10/21 20:00) Lactated Ringers (Lr 1000 Ml Iv Solution (07/10/21 20:00) Cbc With Automated Diff (07/10/21 20:00) Comprehensive Metabolic Panel (07/10/21 20:00) Ua Culture If Indicated (07/10/21 20:00) Loperamide Tablet (Imodium Tablet) (07/10/21 20:00) Rx-Ondansetron Po (Rx-Zofran Po) (07/10/21 21:28) Medications Given in ED Current Medications Medications Dose Ordered Sig/Sammie Route Start Time Stop Time Status Last Admin Dose Admin Lactated Ringer's 1,000 ml @ 0 mls/hr Q0M ONCE IV 07/10/21 20:00 07/10/21 20:02 DC 07/10/21 20:11 1,000 MLS/HR Vital Signs/I&O 07/10/21 20:14 Temp 36.7 Pulse 95 Resp 18 B/P (MAP) 115/80 (92) Pulse Ox 98 O2 Delivery Room Air Blood Pressure Mean: 92 Departure Impression Primary Impression: Viral gastroenteritis Disposition: HOME, SELF-CARE Condition: Improved Departure-Patient Inst. Decision time for Depature: 21:20 Referrals: [facility] [place] Primary Care Physician MAXIMINO MITCHELL (Family) Primary Care Physician Patient Instructions: Viral Gastroenteritis, Adult (DC) Add. Discharge Instructions: Clear liquid diet for the next 6 to 8 hours then bland diet as tolerated. Avoid spicy, greasy, fried foods, For the next 3 to 4 days. Increase water, 16 ounces every 2 hours while awake. Use the Zofran every 6-8 hours as needed for nausea or vomiting. follow-up with your primary care provider if symptoms are not improving or worsen. Return to the emergency department for new, urgent healthcare needs. Sse Imodium [id number] every 4-6 hours as needed for diarrhea. All discharge instructions reviewed with patient and/or family. Voiced understanding. JOSE BORRERO Jul 10, 2021 21:27
== END 2021-07-10 21:36 | disposition home or self-care (01) ==
LOC: EDUNIT# 19:39 → ER 19:42
DX: A08.4 Viral intestinal infection, unspecified (principal); K21.9 Gastro-esophageal reflux disease without esophagitis; E11.9 Type 2 diabetes mellitus without complications; F41.9 Anxiety disorder, unspecified; F32.9 Major depressive disorder, single episode, unspecified; Z79.899 Other long term (current) drug therapy; Z79.84 Long term (current) use of oral hypoglycemic drugs
CPT/HCPCS: 36415; 80053; 81000; 85025

== ENCOUNTER 2022-02-11 11:34 | Emergency (ER) | payer SELFPAY ==
[~2022-02-11] VITALS: Ht 157.5 cm; Wt 58.9 kg
--- NOTE | 2022-02-11 11:55 | ED Cough/URI ---
General Chief Complaint: COVID19 Suspect/Confirmed Stated Complaint: FEVER,COUGH,SEE,CHILLS Source: patient Exam Limitations: no limitations History of Present Illness Date Seen by Provider: Feb 11, 2022 Time Seen by Provider: 11:53 Initial Comments Patient is a 47-year-old female who presents ED with body aches, chills fatigue and weakness. Symptoms started on Thursday. She reports a mild cough with very minimal sputum production. Some mild shortness of breath. No history of asthma, COPD, coronary artery disease, CHF. States she has been feeling feverish at home. Has been taken Tylenol ibuprofen without much improvement. Went to [facility] yesterday tested negative for COVID and influenza. She reports headaches, diffuse body pain, sore throat, ear pain and not feeling well. She states family member tested positive for COVID that she has been exposed to. She denies of any urinary symptoms, current chest pain, neck pain, abdominal pain, diarrhea. 1 episode of vomiting. Eating and drinking at home without difficulties. Allergies and Home Medications Allergies Coded Allergies: ciprofloxacin (Verified Allergy, Unknown, 03/10/18) ciprofloxacin HCl (Verified Allergy, Unknown, 03/10/18) olanzapine (Unverified Adverse Reaction, Mild, rash, 01/15/12) Patient Home Medication List Home Medication List Reviewed: Yes Doxycycline Hyclate (Doxycycline Hyclate) 100 Mg Tablet, 100 MG PO BID Prescribed by: CHALINO LESLIE on 12/13/20 1544 Fluoxetine Hcl (Fluoxetine Hcl) 20 Mg Capsule, 1 EACH PO DAILY, (Reported) Entered as Reported by: GONZALEZ REYES on 07/17/12 1613 Ibuprofen (Ibuprofen) 600 Mg Tablet, 600 MG PO Q6H PRN for PAIN Prescribed by: KAVON MEYERS on 11/12/13 0152 Lamotrigine (Lamictal) 25 Mg Tab, 25 MG PO DAILY, (Reported) Entered as Reported by: ROMEO HENDERSON on 09/26/13 1650 Meloxicam (Meloxicam) 15 Mg Tablet, 15 MG PO DAILY Prescribed by: CHALINO LESLIE on 05/12/18 1259 Metformin Hcl (Metformin Er 500MG) 500 Mg Tab.sr.24h, 2 EACH PO BID WITH MEALS, (Reported) Entered as Reported by: ROMEO HENDERSON on 09/26/13 1650 Naproxen (Naproxen) 500 Mg Tablet, 500 MG PO Q12H Prescribed by: LOREN DICKSON on 02/11/22 1252 Ondansetron (Ondansetron Odt) 4 Mg Tab.rapdis, 4 MG PO Q6H PRN for NAUSEA/VOMITING Prescribed by: CASEY MANCIA on 08/24/19 0618 Ondansetron HCl (Zofran) 4 Mg Tab, 4 MG PO Q4H PRN for nausea and vomiting Prescribed by: PEYMAN SANDERS on 02/17/18 1523 Pantoprazole Sodium (Protonix) 20 Mg Tablet.dr, 20 MG PO DAILY Prescribed by: PEYMAN SANDERS on 02/17/18 1523 Polyethylene Glycol (Miralax 17 Gm Packet) 17 Gm Pack, 17 GM PO DAILY PRN for CONSTIPATION Prescribed by: KAVON MEYERS on 11/12/13 0152 Prednisone (Prednisone) 20 Mg Tab, 40 MG PO DAILY Prescribed by: CHALINO LESLIE on 12/13/20 1544 Quetiapine Fumarate (Seroquel 25 Mg) 25 Mg Tablet, 3 TAB PO HS, (Reported) Entered as Reported by: ROMEO HENDERSON on 09/26/13 1650 Sulfamethoxazole/Trimethoprim (Bactrim Ds Tablet) 1 Each Tablet, 1 EACH PO BID Prescribed by: PEYMAN SANDERS on 02/17/18 1523 Review of Systems Review of Systems Constitutional: chills; No diaphoresis; malaise, weakness EENTM: No blurred vision, No double vision, No mouth pain, No mouth swelling, No throat pain, No throat swelling Respiratory: cough, short of breath Cardiovascular: No chest pain Gastrointestinal: No abdominal pain Musculoskeletal: No back pain, No joint pain; muscle pain Skin: No change in color, No change in hair/nails All Other Systems Reviewed Negative Unless Noted: Yes Past Qgnwdwe-Bbihhb-Ylaiij Hx Immunizations Up To Date Tetanus Booster (TDap): Unknown Seasonal Allergies Seasonal Allergies: No Past Medical History Surgeries: Yes Appendectomy, Tubal Ligation Respiratory: No Cardiac: No Neurological: No Reproductive Disorders: No (STATES MENSES EVERY MONTH , NONE IN SEP) Genitourinary: No Gastrointestinal: Yes Gastroesophageal Reflux, Chronic Constipation Musculoskeletal: No Endocrine: Yes Diabetes, Non-Insulin dep HEENT: No Cancer: No Psychosocial: Yes Sleep Difficulties, Anxiety, Depression Integumentary: No Blood Disorders: No Physical Exam Vital Signs - First Documented 02/11/22 11:43 Temp 37.9 Pulse 103 Resp 20 B/P (MAP) 132/57 (82) Pulse Ox 98 O2 Delivery Room Air Capillary Refill : Height: 5'0" Weight: 178lbs. 0oz. 80.724914ln; 26.00 BMI Method:Stated General Appearance: WD/WN, no apparent distress Eyes: Bilateral Eye Normal Inspection, Bilateral Eye PERRL, Bilateral Eye EOMI HEENT: PERRL/EOMI, normal ENT inspection, TMs normal, pharynx normal Neck: non-tender, full range of motion, supple, normal inspection Respiratory: chest non-tender, lungs clear, normal breath sounds, no respiratory distress, no accessory muscle use Cardiovascular: regular rate, rhythm, no edema, no gallop, no JVD Gastrointestinal: normal bowel sounds, non tender, soft, no organomegaly Extremities: normal range of motion, non-tender, normal inspection, no pedal edema, no calf tenderness 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: evidence 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 as tested, no motor/sensory deficits, alert, normal mood/affect, oriented x 3 Skin: normal color, warm/dry Progress/Results/Core Measures Suspected Sepsis SIRS Temperature: Pulse: Respiratory Rate: Laboratory Tests 02/11/22 12:00: White Blood Count 12.8H Blood Pressure / Mean: Laboratory Tests 02/11/22 12:00: Creatinine 0.85, Platelet Count 440H, Total Bilirubin 0.2 Results/Orders Lab Results Laboratory Tests Test 02/11/22 11:37 02/11/22 12:00 02/11/22 12:23 Range/Units Influenza Type A (RT-PCR) Not Detected Not Detecte Influenza Type B (RT-PCR) Not Detected Not Detecte SARS-CoV-2 RNA (RT-PCR) Detected H Not Detecte White Blood Count 12.8 H 4.3-11.0 10^3/uL Red Blood Count 4.20 3.80-5.11 10^6/uL Hemoglobin 12.4 11.5-16.0 g/dL Hematocrit 37 35-52 % Mean Corpuscular Volume 89 80-99 fL Mean Corpuscular Hemoglobin 30 25-34 pg Mean Corpuscular Hemoglobin Concent 33 32-36 g/dL Red Cell Distribution Width 13.0 10.0-14.5 % Platelet Count 440 H 130-400 10^3/uL Mean Platelet Volume 10.4 9.0-12.2 fL Immature Granulocyte % (Auto) 1 % Neutrophils (%) (Auto) 71 42-75 % Lymphocytes (%) (Auto) 17 12-44 % Monocytes (%) (Auto) 7 0-12 % Eosinophils (%) (Auto) 4 0-10 % Basophils (%) (Auto) 1 0-10 % Neutrophils # (Auto) 9.1 H 1.8-7.8 10^3/uL Lymphocytes # (Auto) 2.1 1.0-4.0 10^3/uL Monocytes # (Auto) 0.9 0.0-1.0 10^3/uL Eosinophils # (Auto) 0.5 H 0.0-0.3 10^3/uL Basophils # (Auto) 0.1 0.0-0.1 10^3/uL Immature Granulocyte # (Auto) 0.1 0.0-0.1 10^3/uL Sodium Level 135 135-145 MMOL/L Potassium Level 3.9 3.6-5.0 MMOL/L Chloride Level 101 98-107 MMOL/L Carbon Dioxide Level 24 21-32 MMOL/L Anion Gap 10 5-14 MMOL/L Blood Urea Nitrogen 9 7-18 MG/DL Creatinine 0.85 0.60-1.30 MG/DL Estimat Glomerular Filtration Rate 84 BUN/Creatinine Ratio 11 Glucose Level 109 H 70-105 MG/DL Calcium Level 9.1 8.5-10.1 MG/DL Corrected Calcium 9.0 8.5-10.1 MG/DL Total Bilirubin 0.2 0.1-1.0 MG/DL Aspartate Amino Transf (AST/SGOT) 29 5-34 U/L Alanine Aminotransferase (ALT/SGPT) 42 0-55 U/L Alkaline Phosphatase 81 40-136 U/L C-Reactive Protein High Sensitivity 2.10 H 0.00-0.50 MG/DL Total Protein 7.8 6.4-8.2 GM/DL Albumin 4.1 3.2-4.5 GM/DL Urine Color YELLOW Urine Clarity CLOUDY Urine pH 7.0 5-9 Urine Specific [place] 1.010 L 1.016-1.022 Urine Protein NEGATIVE NEGATIVE Urine Glucose (UA) NEGATIVE NEGATIVE Urine Ketones NEGATIVE NEGATIVE Urine Nitrite NEGATIVE NEGATIVE Urine Bilirubin NEGATIVE NEGATIVE Urine Urobilinogen 0.2 < = 1.0 MG/DL Urine Leukocyte Esterase NEGATIVE NEGATIVE Urine RBC (Auto) NEGATIVE NEGATIVE Urine RBC RARE /HPF Urine WBC RARE /HPF Urine Squamous Epithelial Cells 5-10 /HPF Urine Crystals PRESENT H /LPF Urine Amorphous Sediment RARE LIDYA PHOSPHATE H /LPF Urine Bacteria TRACE /HPF Urine Casts NONE /LPF Urine Mucus NEGATIVE /LPF Urine Culture Indicated NO My Orders Orders - BELINDA COOLEY Covid 19 Inhouse Test (02/11/22 11:37) Influenza A And B By Pcr (02/11/22 11:37) Cbc With Automated Diff (02/11/22 11:51) Comprehensive Metabolic Panel (02/11/22 11:51) Hs C Reactive Protein (02/11/22 11:51) Urinalysis (02/11/22 11:51) Chest 1 View, Ap/Pa Only (02/11/22 11:51) Ketorolac Injection (Toradol Injection) (02/11/22 12:00) Covid 19 Inhouse Test (02/11/22 11:37) Medications Given in ED Vital Signs/I&O 02/11/22 02/11/22 11:43 13:00 Temp 37.9 37.9 Pulse 103 103 Resp 20 20 B/P (MAP) 132/57 (82) 132/57 Pulse Ox 98 98 O2 Delivery Room Air Room Air Capillary Refill : Departure Communication (PCP) Patient COVID influenza negative yesterday at the clinic. Chest x-ray was negative for pneumonia. Urinalysis negative for infection. Slight elevated white blood count. No meningeal signs. Patient does not appear toxic or septic. Stable vital signs. Likely viral in nature with her current complaints. Oropharynx without evidence of erythema, exudate. No cervical adenopathy. No visual disturbances. Bilateral TMs clear. She has no abdominal tenderness. Recommend continue with conservative treatment. Patient Was given Toradol with improvement of her symptoms. Will discharge with naproxen. Recommend oral hydration. If any worsening symptoms return back to ED for further evaluation. Patient is requesting conservative treatment at this time. Before discharge I discussed potentially reswabbing for COVID as she may have a early false negative. She left before results. Tested positive for COVID. Called patient 3 times and left a voicemail regarding her results. We will continue contacting patient for potential treatment plans. Impression Primary Impression: Viral syndrome Disposition: 01 HOME, SELF-CARE Condition: Stable Departure-Patient Inst. Decision time for Depature: 12:51 Referrals: [facility] ([facility]P) Primary Care Physician MAXIMINO MITCHELL (Family) Primary Care Physician Patient Instructions: Viral Syndrome (DC) Scripts Naproxen (Naproxen) 500 Mg Tablet 500 MG PO Q12H for 10 Days, #20 TAB Prov: BELINDA COOLEY 02/11/22 Work/School Note: Work Release Form Date Seen in the Emergency Department: Feb 11, 2022 Return to Work: Feb 14, 2022 BELINDA COOLEY Feb 11, 2022 11:55
[2022-02-11] MEDS ORDERED: KETOROLAC 30 MG/ML VIAL IM ONE (12:00)
[2022-02-11 12:12] LABS: BASOPHILS # (AUTO) 0.1 10^3/uL (0.0-0.1); BASOPHILS % (AUTO) 1 % (0-10); EOSINOPHILS # (AUTO) 0.5 10^3/uL (0.0-0.3); EOSINOPHILS % (AUTO) 4 % (0-10); HEMATOCRIT 37 % (35-52); HEMOGLOBIN 12.4 g/dL (11.5-16.0); LYMPHOCYTES # (AUTO) 2.1 10^3/uL (1.0-4.0); LYMPHOCYTES % (AUTO) 17 % (12-44); MEAN CORPUSCULAR HEMOGLOBIN 30 pg (25-34); MEAN CORPUSCULAR HGB CONC 33 g/dL (32-36); MEAN CORPUSCULAR VOLUME 89 fL (80-99); MEAN PLATELET VOLUME 10.4 fL (9.0-12.2); MONOCYTES # (AUTO) 0.9 10^3/uL (0.0-1.0); MONOCYTES % (AUTO) 7 % (0-12); NEUTROPHILS # (AUTO) 9.1 10^3/uL (1.8-7.8); NEUTROPHILS % (AUTO) 71 % (42-75); PLATELET COUNT 440 10^3/uL (130-400); WHITE BLOOD COUNT 12.8 10^3/uL (4.3-11.0)
--- NOTE | 2022-02-11 12:12 | Diagnostic Imaging Report ---
INDICATION: Cough, fever, chills, bodyache, sore throat, vomiting. COMPARISON: Exam compared to 12/13/2020. FINDINGS: Lungs are clear. No failure, effusion, or pneumothorax. IMPRESSION: Negative. Dictated by: Dictated on workstation # [id number]
[2022-02-11 12:23] LABS: ALBUMIN 4.1 GM/DL (3.2-4.5); POTASSIUM 3.9 MMOL/L (3.6-5.0)
[2022-02-11 12:24] LABS: CALCIUM 9.1 MG/DL (8.5-10.1)
[2022-02-11 12:25] LABS: TOTAL PROTEIN 7.8 GM/DL (6.4-8.2)
[2022-02-11 12:26] LABS: BILIRUBIN,URINE NEGATIVE (NEGATIVE); CLARITY,URINE CLOUDY; COLOR,URINE YELLOW; GLUCOSE, URINE (UA) NEGATIVE (NEGATIVE); KETONES,URINE NEGATIVE (NEGATIVE); LEUKOCYTE ESTERASE ,URINE NEGATIVE (NEGATIVE); NITRITE,URINE NEGATIVE (NEGATIVE); PROTEIN,URINE NEGATIVE (NEGATIVE)
[2022-02-11 12:27] LABS: BILIRUBIN,TOTAL 0.2 MG/DL (0.1-1.0)
[2022-02-11 12:29] LABS: CREATININE SERUM 0.85 MG/DL (0.60-1.30)
[2022-02-11 12:38] LABS: BACTERIA,URINE TRACE /HPF; RBC,URINE RARE /HPF; WBC,URINE RARE /HPF
[2022-02-11 12:40] LABS: AMORPHOUS SEDIMENT,UR RARE AMOR PHOSPHATE /LPF
[2022-02-11] MEDS ORDERED: NAPR-915 PO (12:52)
[2022-02-11 13:00] VITALS: BP 132/57
== END 2022-02-11 13:00 | disposition home or self-care (01) ==
LOC: EDUNIT# 11:34 → ER 11:36
DX: U07.1 COVID-19 (principal); B34.9 Viral infection, unspecified
CPT/HCPCS: 36415; 71045; 80053; 81000; 85025; 86141; 87636

== ENCOUNTER 2022-04-17 10:48 | Emergency (ER) | payer SELFPAY ==
[~2022-04-17 10:48] MED LIST changes: +NAPR-915 PO
== END 2022-04-17 11:55 | disposition left against medical advice (07) ==
LOC: EDUNIT# 10:48 → ER 10:52
DX: R21 Rash and other nonspecific skin eruption (principal)

== ENCOUNTER 2022-05-14 12:19 | Emergency (ER) | payer SELFPAY ==
[~2022-05-14] VITALS: Ht 157 cm; Wt 84.0 kg
--- NOTE | 2022-05-14 12:42 | ED Headache ---
General Chief Complaint: Head/Cervical Problems Stated Complaint: HEADACHE Nursing Triage Note: PT COMPLAINS OF A HEADACHE. STATES SHE HAS TAKEN TYLENOL AND IBUPROFEN ET IT IS NOT HELPING. PT ALSO STATES SHE HAS PAIN IN HER CHEST WHEN SHE TAKES A DEEP BREATH. Source: patient Exam Limitations: no limitations History of Present Illness Date Seen by Provider: May 14, 2022 Time Seen by Provider: 12:33 Initial Comments Patient presents for dull throbbing headache that starts in her temples and does to her occipital region bilaterally for the last 3 to 4 days. She states this happens to her about once a year and she comes in and gets an injection which seems to help. She denies any fevers or chills. She does describe a tired feeling when she takes deep breaths but no chest pain or shortness of breath. No neck stiffness nausea vomiting abdominal pain, changes in bowel or bladder habits. She tells me this is the exact same presentation that she has had for the last several years. No head injuries or trauma. 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 Allergies and Home Medications Allergies Coded Allergies: ciprofloxacin (Verified Allergy, Unknown, 03/10/18) ciprofloxacin HCl (Verified Allergy, Unknown, 03/10/18) olanzapine (Unverified Adverse Reaction, Mild, rash, 01/15/12) Patient Home Medication List Home Medication List Reviewed: Yes Doxycycline Hyclate (Doxycycline Hyclate) 100 Mg Tablet, 100 MG PO BID Prescribed by: CHALINO LESLIE on 12/13/20 1544 Fluoxetine Hcl (Fluoxetine Hcl) 20 Mg Capsule, 1 EACH PO DAILY, (Reported) Entered as Reported by: GONZALEZ REYES on 07/17/12 1613 Ibuprofen (Ibuprofen) 600 Mg Tablet, 600 MG PO Q6H PRN for PAIN Prescribed by: KAVON MEYERS on 11/12/13 0152 Lamotrigine (Lamictal) 25 Mg Tab, 25 MG PO DAILY, (Reported) Entered as Reported by: ROMEO HENDERSON on 09/26/13 1650 Meloxicam (Meloxicam) 15 Mg Tablet, 15 MG PO DAILY Prescribed by: CHALINO LESLIE on 05/12/18 1259 Metformin Hcl (Metformin Er 500MG) 500 Mg Tab.sr.24h, 2 EACH PO BID WITH MEALS, (Reported) Entered as Reported by: ROMEO HENDERSON on 09/26/13 1650 Naproxen (Naproxen) 500 Mg Tablet, 500 MG PO Q12H Prescribed by: LOREN DICKSON on 02/11/22 1252 Ondansetron (Ondansetron Odt) 4 Mg Tab.rapdis, 4 MG PO Q6H PRN for NAUSEA/VO MITING Prescribed by: CASEY MANCIA on 08/24/19 0618 Ondansetron HCl (Zofran) 4 Mg Tab, 4 MG PO Q4H PRN for nausea and vomiting Prescribed by: PEYMAN SANDERS on 02/17/18 1523 Pantoprazole Sodium (Protonix) 20 Mg Tablet.dr, 20 MG PO DAILY Prescribed by: PEYMAN SANDERS on 02/17/18 1523 Polyethylene Glycol (Miralax 17 Gm Packet) 17 Gm Pack, 17 GM PO DAILY PRN for CONSTIPATION Prescribed by: KAVON MEYERS on 11/12/13 0152 Prednisone (Prednisone) 20 Mg Tab, 40 MG PO DAILY Prescribed by: CHALINO LESLIE on 12/13/20 1544 Quetiapine Fumarate (Seroquel 25 Mg) 25 Mg Tablet, 3 TAB PO HS, (Reported) Entered as Reported by: ROMEO HENDERSON on 09/26/13 1650 Sulfamethoxazole/Trimethoprim (Bactrim Ds Tablet) 1 Each Tablet, 1 EACH PO BID Prescribed by: PEYMAN SANDERS on 02/17/18 1523 Review of Systems Review of Systems Constitutional: no symptoms reported Eyes: No Symptoms Reported Ears, Nose, Mouth, Throat: no symptoms reported Respiratory: no symptoms reported Cardiovascular: no symptoms reported Gastrointestinal: no symptoms reported Genitourinary: no symptoms reported Musculoskeletal: no symptoms reported Skin: no symptoms reported Psychiatric/Neurological: Headache Past Crhcxho-Mwttnh-Koklpy Hx Patient Social History Tobacco Use?: No Substance use?: No Alcohol Use?: No Immunizations Up To Date Tetanus Booster (TDap): Unknown First/Initial COVID19 Vaccinat: 07/09/21 Second COVID19 Vaccination Gordon: 07/09/21 Third COVID19 Vaccination Date: 07/09/21 COVID19 Vaccine Imaging Specialist: ROD Seasonal Allergies Seasonal Allergies: No Past Medical History Surgeries: Yes Appendectomy, Tubal Ligation Respiratory: No Cardiac: No Neurological: No Reproductive Disorders: No (STATES MENSES EVERY MONTH , NONE IN SEP) Genitourinary: No Gastrointestinal: Yes Gastroesophageal Reflux, Chronic Constipation Musculoskeletal: No Endocrine: Yes Diabetes, Non-Insulin dep HEENT: No Cancer: No Psychosocial: Yes Sleep Difficulties, Anxiety, Depression Integumentary: No Blood Disorders: No Family Medical History Reviewed Nursing Family Hx No Pertinent Family Hx Physical Exam Vital Signs Vital Signs - First Documented 05/14/22 12:20 Temp 35.8 Pulse 97 Resp 16 B/P (MAP) 112/88 (96) Pulse Ox 97 O2 Delivery Room Air Capillary Refill : Less Than 3 Seconds Height, Weight, BMI Height: 5'0" Weight: 178lbs. 0oz. [id number]; 34.00 BMI Method:Stated General Appearance: WD/WN, no apparent distress HEENT: PERRL/EOMI, normal ENT inspection, TMs normal, pharynx normal Neck: non-tender, supple, normal inspection Cardiovascular: regular rate, rhythm, no edema, no gallop, no JVD, no murmur Respiratory: chest non-tender, lungs clear, normal breath sounds, no respiratory distress, no accessory muscle use Gastrointestinal: normal bowel sounds, non tender, soft, no organomegaly, no pulsatile mass Back: normal inspection, no CVA tenderness, no vertebral tenderness Extremities: normal range of motion, non-tender, normal inspection, no pedal edema, no calf tenderness Skin: normal color, warm/dry Lymphatic: no adenopathy Progress/Results/Core Measures Results/Orders My Orders Orders - BARBARAFREDIS Roman DO Ketorolac Injection (Toradol Injection) (05/14/22 12:45) Medications Given in ED Current Medications Medications Dose Ordered Sig/Sammie Route Start Time Stop Time Status Last Admin Dose Admin Ketorolac Tromethamine 30 mg ONCE ONCE IM 05/14/22 12:45 05/14/22 12:46 DC 05/14/22 12:59 30 MG Vital Signs/I&O 05/14/22 12:20 Temp 35.8 Pulse 97 Resp 16 B/P (MAP) 112/88 (96) Pulse Ox 97 O2 Delivery Room Air Blood Pressure Mean: 96 Departure Communication (Admissions) Patient states she is feeling much better after Toradol and requesting to go home. Supportive care and discharged in stable condition. Impression Primary Impression: Headache Qualified Codes: R51.9 - Headache, unspecified Disposition: 01 HOME, SELF-CARE Condition: Stable Departure-Patient Inst. Referrals: [facility] (PCP) Primary Care Physician MAXIMINO MITCHELL (Family) Primary Care Physician Patient Instructions: Migraines (DC) Add. Discharge Instructions: Continue to take ibuprofen and Tylenol as needed at home. Increase your fluids at home and rest. Return to the emergency department for any severe concerns. Follow-up with your primary physician for any nonemergent needs All discharge instructions reviewed with patient and/or family. Voiced understanding. FREDIS JIMENEZ DO May 14, 2022 12:42
[2022-05-14] MEDS ORDERED: KETOROLAC 60 MG/2 ML VIAL IM ONE (12:45)
[2022-05-14 14:29] VITALS: BP 114/74
== END 2022-05-14 14:29 | disposition home or self-care (01) ==
LOC: EDUNIT# 12:19 → ER 12:21
DX: R51.9 Headache, unspecified (principal)

== ENCOUNTER 2022-11-09 14:06 | Emergency (ER) | payer SELFPAY ==
[~2022-11-09] VITALS: Ht 155 cm; Wt 83.9 kg
[2022-11-09] MEDS ORDERED: NS IV 1000 ML 1,000 ML IV SCH ×2 (14:30→15:15)
[2022-11-09] MEDS ORDERED: cefTRIAXone PRE-MIX 50 ML IV ONE (14:30)
--- NOTE | 2022-11-09 14:37 | ED GU-Female ---
General Chief Complaint: Abdominal/GI Problems Stated Complaint: LOWER BACK/ABD PAIN Source: patient (PT SPEAKS FAIR [place]ICAN, AND UNDERSTANDS M[place]ICAN) History of Present Illness Date Seen by Provider: Nov 09, 2022 Time Seen by Provider: 14:19 Initial Comments PT ARRIVES VIA POV FROM HOME PT STATES SINCE YESTERDAY SHE HAS HAD: -BILATERAL FLANK PAIN -DIFFUSE LOWER ABDOMINAL PAIN -PAINFUL URINATION AND URINARY FREQUENCY NO FEVER NO NAUSEA/VOMITING/DIARRHEA HAS HISTORY OF UTI'S AND THIS FEELS THE SAME SHE HAS NOT TAKEN ANYTHING FOR SYMPTOMS SHE HAS NOT EATEN TODAY, BUT HAS BEEN DRINKING COFFEE TODAY--NOTHING ELSE TO DRINK. PT IS NON-INSULIN DEPENDENT DIABETIC, HAS HTN, HYPERLIPIDEMIA. SHE DOES NOT CHECK BLOOD SUGAR. LMP--4-5 MONTHS AGO. SHE HAS HAD BTL, AND HAS ALSO HAD APPENDECTOMY PCP: ZION Avery EDGARDO Allergies and Home Medications Allergies Coded Allergies: ciprofloxacin (Verified Allergy, Unknown, 03/10/18) ciprofloxacin HCl (Verified Allergy, Unknown, 03/10/18) metformin (Verified Allergy, Unknown, 11/09/22) olanzapine (Unverified Adverse Reaction, Mild, rash, 01/15/12) Patient Home Medication List Doxycycline Hyclate (Doxycycline Hyclate) 100 Mg Tablet, 100 MG PO BID Prescribed by: CHALINO LESLIE on 12/13/20 1544 Fluoxetine Hcl (Fluoxetine Hcl) 20 Mg Capsule, 1 EACH PO DAILY, (Reported) Entered as Reported by: GONZALEZ REYES on 07/17/12 1613 Ibuprofen (Ibuprofen) 600 Mg Tablet, 600 MG PO Q6H PRN for PAIN Prescribed by: KAVON MEYERS on 11/12/13 0152 Lamotrigine (Lamictal) 25 Mg Tab, 25 MG PO DAILY, (Reported) Entered as Reported by: ROMEO HENDERSON on 09/26/13 1650 Meloxicam (Meloxicam) 15 Mg Tablet, 15 MG PO DAILY Prescribed by: CHALINO LESLIE on 05/12/18 1259 Metformin Hcl (Metformin Er 500MG) 500 Mg Tab.sr.24h, 2 EACH PO BID WITH MEALS, (Reported) Entered as Reported by: ROMEO HENDERSON on 09/26/13 1650 Naproxen (Naproxen) 500 Mg Tablet, 500 MG PO Q12H Prescribed by: LOREN DICKSON on 02/11/22 1252 Ondansetron (Ondansetron Odt) 4 Mg Tab.rapdis, 4 MG PO Q6H PRN for NAUSEA/VOMITING Prescribed by: CASEY MANCIA on 08/24/19 0618 Ondansetron HCl (Zofran) 4 Mg Tab, 4 MG PO Q4H PRN for nausea and vomiting Prescribed by: PEYMAN SANDERS on 02/17/18 1523 Pantoprazole Sodium (Protonix) 20 Mg Tablet.dr, 20 MG PO DAILY Prescribed by: PEYMAN SANDERS on 02/17/18 1523 Polyethylene Glycol (Miralax 17 Gm Packet) 17 Gm Pack, 17 GM PO DAILY PRN for CONSTIPATION Prescribed by: KAVON MEYERS on 11/12/13 0152 Prednisone (Prednisone) 20 Mg Tab, 40 MG PO DAILY Prescribed by: CHALINO LESLIE on 12/13/20 1544 Quetiapine Fumarate (Seroquel 25 Mg) 25 Mg Tablet, 3 TAB PO HS, (Reported) Entered as Reported by: ROMEO HENDERSON on 09/26/13 1650 Sulfamethoxazole/Trimethoprim (Bactrim Ds Tablet) 1 Each Tablet, 1 EACH PO BID Prescribed by: PEYMAN SANDERS on 02/17/18 152 Review of Systems Review of Systems Constitutional: no symptoms reported Respiratory: no symptoms reported Cardiovascular: no symptoms reported Gastrointestinal: see HPI, abdominal pain Genitourinary: see HPI Musculoskeletal: see HPI Skin: no symptoms reported Psychiatric/Neurological: No Symptoms Reported Endocrine: No Symptoms Reported Hematologic/Lymphatic: No Symptoms Reported Past Wicawvw-Xhawuv-Rlmnzp Hx Patient Social History Tobacco Use?: No Substance use?: No Alcohol Use?: No Immunizations Up To Date Tetanus Booster (TDap): Unknown First/Initial COVID19 Vaccinat: 07/09/21 Second COVID19 Vaccination Gordon: 07/09/21 Third COVID19 Vaccination Date: 07/09/21 Seasonal Allergies Seasonal Allergies: No Past Medical History Surgeries: Yes Appendectomy, Tubal Ligation Respiratory: No Cardiac: Yes High Cholesterol, Hypertension Neurological: No Reproductive Disorders: No (PERIODS EVERY 4-5 MONTHS) [employer] History: Tubal Ligation Genitourinary: Yes Bladder Infection Gastrointestinal: Yes Gastroesophageal Reflux, Chronic Constipation Musculoskeletal: No Endocrine: Yes Diabetes, Non-Insulin dep HEENT: No Cancer: No Psychosocial: Yes Sleep Difficulties, Anxiety, Depression Integumentary: No Blood Disorders: No Family Medical History No Pertinent Family Hx Physical Exam Vital Signs Vital Signs - First Documented 11/09/22 14:15 Temp 36.5 Pulse 85 Resp 18 B/P (MAP) 131/85 (100) Pulse Ox 97 O2 Delivery Room Air Capillary Refill : Height, Weight, BMI Height: 5'0" Weight: 178lbs. 0oz. 80.820285rl; 34.00 BMI Method:Stated General Appearance: WD/WN, no apparent distress, obese Neck: normal inspection Cardiovascular: regular rate, rhythm, no murmur Respiratory: normal breath sounds, no respiratory distress, no accessory muscle use Gastrointestinal: soft; No distended, No guarding, No rebound; tenderness (DIFFUSE LOWER ABDOMINAL TENDERNESS. ); No hernia Back: no vertebral tenderness, CVA tenderness (R), CVA tenderness (L) Extremities: normal inspection, normal capillary refill 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: resolution rep II-XII nml as tested, no motor/sensory deficits, alert, normal mood/affect, oriented x 3 Skin: normal color (PT IS ), warm/dry; No rash Focused Exam Sepsis Stage: Ruled Out Reason for ruling out sepsis: DOES NOT MEET CRITERIA Possible Source: Genitouriary Lactate Level 11/09/22 14:28: Lactic Acid Level 2.68*H 11/09/22 16:40: Lactic Acid Level 1.29 Time of Focused Exam: 16:00 Respiratory: Normal Breath Sounds, No Accessory Muscle Use, No Respiratory Distress Cardiovascular: Regular Rate, Rhythm, No Murmur Capillary Refill: Less Than 3 Seconds Skin: normal color, warm/dry Lactic Acid Level Laboratory Tests Test 11/09/22 14:28 11/09/22 16:40 Lactic Acid Level 2.68 MMOL/L (0.50-2.00) *H 1.29 MMOL/L (0.50-2.00) Within 3hrs of presentation: Admin fluids, Admin ABX, Blood cultures prior to ABX's, Focus exam, Lactate level Progress/Results/Core Measures Suspected Sepsis SIRS Temperature: Pulse: Respiratory Rate: Laboratory Tests 11/09/22 14:28: White Blood Count 11.4H Blood Pressure / Mean: 11/09/22 14:28: Lactic Acid Level 2.68*H 11/09/22 16:40: Lactic Acid Level 1.29 Laboratory Tests 11/09/22 14:28: Creatinine 0.82, INR Comment 0.9, Platelet Count 459H, Total Bilirubin 0.3 Results/Orders Lab Results Laboratory Tests Test 11/09/22 14:28 11/09/22 16:40 11/09/22 17:10 Range/Units White Blood Count 11.4 H 4.3-11.0 10^3/uL Red Blood Count 4.23 3.80-5.11 10^6/uL Hemoglobin 12.5 11.5-16.0 g/dL Hematocrit 37 35-52 % Mean Corpuscular Volume 88 80-99 fL Mean Corpuscular Hemoglobin 30 25-34 pg Mean Corpuscular Hemoglobin Concent 33 32-36 g/dL Red Cell Distribution Width 13.0 10.0-14.5 % Platelet Count 459 H 130-400 10^3/uL Mean Platelet Volume 10.9 9.0-12.2 fL Immature Granulocyte % (Auto) 0 % Neutrophils (%) (Auto) 57 42-75 % Lymphocytes (%) (Auto) 34 12-44 % Monocytes (%) (Auto) 5 0-12 % Eosinophils (%) (Auto) 3 0-10 % Basophils (%) (Auto) 1 0-10 % Neutrophils # (Auto) 6.5 1.8-7.8 10^3/uL Lymphocytes # (Auto) 3.9 1.0-4.0 10^3/uL Monocytes # (Auto) 0.6 0.0-1.0 10^3/uL Eosinophils # (Auto) 0.3 0.0-0.3 10^3/uL Basophils # (Auto) 0.1 0.0-0.1 10^3/uL Immature Granulocyte # (Auto) 0.0 0.0-0.1 10^3/uL Prothrombin Time 13.0 12.2-14.7 SEC INR Comment 0.9 0.8-1.4 Activated Partial Thromboplast Time 28 24-35 SEC Urine Color YELLOW Urine Clarity CLEAR Urine pH 5.5 5-9 Urine Specific [place] 1.025 H 1.016-1.022 Urine Protein NEGATIVE NEGATIVE Urine Glucose (UA) NEGATIVE NEGATIVE Urine Ketones NEGATIVE NEGATIVE Urine Nitrite NEGATIVE NEGATIVE Urine Bilirubin NEGATIVE NEGATIVE Urine Urobilinogen 0.2 < = 1.0 MG/DL Urine Leukocyte Esterase NEGATIVE NEGATIVE Urine RBC (Auto) NEGATIVE NEGATIVE Urine RBC NONE /HPF Urine WBC NONE /HPF Urine Crystals NONE /LPF Urine Bacteria NEGATIVE /HPF Urine Casts NONE /LPF Urine Mucus NEGATIVE /LPF Urine Culture Indicated CULTURE PENDING Sodium Level 136 135-145 MMOL/L Potassium Level 4.0 3.6-5.0 MMOL/L Chloride Level 104 98-107 MMOL/L Carbon Dioxide Level 22 21-32 MMOL/L Anion Gap 10 5-14 MMOL/L Blood Urea Nitrogen 11 7-18 MG/DL Creatinine 0.82 0.60-1.30 MG/DL Estimat Glomerular Filtration Rate 88 BUN/Creatinine Ratio 13 Glucose Level 241 H 70-105 MG/DL Lactic Acid Level 2.68 *H 1.29 0.50-2.00 MMOL/L Calcium Level 8.5 8.5-10.1 MG/DL Corrected Calcium 8.5 8.5-10.1 MG/DL Total Bilirubin 0.3 0.1-1.0 MG/DL Aspartate Amino Transf (AST/SGOT) 40 H 5-34 U/L Alanine Aminotransferase (ALT/SGPT) 66 H 0-55 U/L Alkaline Phosphatase 83 40-136 U/L Total Protein 7.4 6.4-8.2 GM/DL Albumin 4.0 3.2-4.5 GM/DL Beta-Hydroxybutyrate (Chem panel) 0.10 0.00-0.27 MMOL/L Glucometer 119 H 70-110 MG/DL My Orders Orders - KATE GONZÁLES DO Ed Iv/Invasive Line Start (11/09/22 14:21) Monitor-Rhythm Ecg Trace Only (11/09/22 14:21) Ct Abd/Pelvis Wo(Kidney Stone) (11/09/22 14:21) Ed Iv/Invasive Line Start (11/09/22 14:21) Ns Iv 1000 Ml (Sodium Chloride 0.9%) (11/09/22 14:30) Cbc With Automated Diff (11/09/22 14:21) Comprehensive Metabolic Panel (11/09/22 14:21) Blood Culture (11/09/22 14:21) Urinalysis (11/09/22 14:21) Urine Culture (11/09/22 14:21) Protime With Inr (11/09/22 14:21) Partial Thromboplastin Time (11/09/22 14:21) Ed Iv/Invasive Line Start (11/09/22 14:21) Vital Signs Adult Sepsis Patie Q15M (11/09/22 14:21) O2 (11/09/22 14:21) Remove Rings In Anticipation O (11/09/22 14:21) Lactic Acid Analyzer (11/09/22 14:21) Ceftriaxone 1 Gm Pre-Mix (Rocephin 1 Gm (11/09/22 14:30) Ed Iv/Invasive Line Start (11/09/22 15:15) Ns Iv 1000 Ml (Sodium Chloride 0.9%) (11/09/22 15:15) Ketorolac Injection (Toradol Injection) (11/09/22 15:45) Beta Hydroxybutyrate (11/09/22 15:34) Hemoglobin A1c (11/09/22 15:34) Accucheck Stat ONCE (11/09/22 16:14) Medications Given in ED Current Medications Medications Dose Ordered Sig/Sammie Route Start Time Stop Time Status Last Admin Dose Admin Ceftriaxone Sodium/Dextrose 50 ml @ 100 mls/hr ONCE ONCE IV 11/09/22 14:30 11/09/22 14:59 DC 11/09/22 14:44 100 MLS/HR Ketorolac Tromethamine 30 mg ONCE ONCE IVP 11/09/22 15:45 11/09/22 15:46 DC 11/09/22 15:39 30 MG Vital Signs/I&O 11/09/22 11/09/22 11/09/22 11/09/22 14:15 14:35 15:21 17:31 Temp 36.5 Pulse 85 75 69 Resp 18 18 18 B/P (MAP) 131/85 (100) 120/85 (97) 105/74 Pulse Ox 97 97 97 98 O2 Delivery Room Air Room Air Room Air Room Air Capillary Refill : Progress Note : Progress Note SEPSIS PROTOCOL INITIATED GIVEN: -IV FLUIDS -ROCEPHIN -TORADOL PAIN RESOLVED WITH TORADOL NO SIGNS OF INFECTION OR SEPSIS--SUSPECT ELEVATED LACTIC ACID IS DUE TO UNCONTROLLED DIABETES. NO EVIDENCE OF DKA BASED ON LAB AND EXAM. REPEAT GLUCOSE 119 AFTER IV FLUIDS REPEAT LACTIC ACID DOWN TO 1.29 DISCUSSED TEST RESULTS, THE IMPORTANCE OF GETTING A GLUCOMETER AND CHECKING BLOOD SUGAR ON A DAILY BASIS, NEED FOR FOLLOW UP AND RETURN PRECAUTIONS REVIEWED PRIOR RECORDS--ALL ER VISITS, WITH SINGLE ADMIT FOR APPENDECTOMY 2005. Diagnostic Imaging Comments CT ABDOMEN/PELVIS--PER RADIOLOGIST REPORT AT 1533 FINDINGS: There are limitations for evaluation of the abdominal organs, neoplastic processes, abscess and limited evaluation of the vasculature relating to the lack of intravenous contrast. There is mild dependent atelectasis in the lower lobes. The heart is not enlarged. There is no identified pericardial effusion. There is diffuse fatty infiltration of the liver. There is focal fatty sparing adjacent to the gallbladder fossa and also in the caudate. There is no identified intrahepatic or extrahepatic bile duct dilation. Noncontrast evaluation of the pancreatic parenchyma is unremarkable. The spleen is normal in size. The adrenal glands are unremarkable. Noncontrast evaluation of the renal parenchyma is unremarkable. The urinary collecting systems are not distended. There is no identified renal or ureteral stone. The urinary bladder is unremarkable. The appendix is not well seen. There is no secondary finding to specifically suggest acute appendicitis. There is no free intraperitoneal air. There is no identified drainable fluid collection. There is no free fluid in the abdomen or pelvis. Mild atherosclerotic calcifications are noted. There is no identified abnormally enlarged lymph node in the abdomen or pelvis meeting CT size criteria for adenopathy. There is no identified acute bony abnormality. IMPRESSION: CT abdomen and pelvis: 1. Diffuse fatty infiltration of the liver. 2. No identified acute abnormality in the abdomen or pelvis. Reviewed: Reviewed by Me Departure Impression Primary Impression: Uncontrolled diabetes mellitus Additional Impression: BILATERAL FLANK PAIN AND LOWER ABDOMINAL PAIN Disposition: HOME, SELF-CARE Condition: Improved Departure-Patient Inst. Decision time for Depature: 17:27 Referrals: [facility] (PCP/Family) Primary Care Physician Patient Instructions: Carb Counting for Adults With Diabetes, DIABETES Add. Discharge Instructions: HOME,REST LOTS OF FLUIDS CHECK YOUR BLOOD SUGAR AT LEAST 3 TIMES A DAY BEFORE EACH MEAL TYLENOL AND MOTRIN NEEDED FOR PAIN FOLLOW UP WITH [facility] THIS WEEK FOR FURTHER CARE--CALL IN THE MORNING TO [facility] AN APPOINTMENT All discharge instructions reviewed with patient and/or family. Voiced understanding. Work/School Note: Work Release Form Date Seen in the Emergency Department: Nov 09, 2022 KATE GONZÁLES DO Nov 09, 2022 14:37
[2022-11-09 14:45] LABS: BILIRUBIN,URINE NEGATIVE (NEGATIVE); CLARITY,URINE CLEAR; COLOR,URINE YELLOW; GLUCOSE, URINE (UA) NEGATIVE (NEGATIVE); KETONES,URINE NEGATIVE (NEGATIVE); LEUKOCYTE ESTERASE ,URINE NEGATIVE (NEGATIVE); NITRITE,URINE NEGATIVE (NEGATIVE); PH,URINE 5.5 (5-9); PROTEIN,URINE NEGATIVE (NEGATIVE)
[2022-11-09 14:49] LABS: BASOPHILS # (AUTO) 0.1 10^3/uL (0.0-0.1); BASOPHILS % (AUTO) 1 % (0-10); EOSINOPHILS # (AUTO) 0.3 10^3/uL (0.0-0.3); EOSINOPHILS % (AUTO) 3 % (0-10); HEMATOCRIT 37 % (35-52); HEMOGLOBIN 12.5 g/dL (11.5-16.0); LYMPHOCYTES # (AUTO) 3.9 10^3/uL (1.0-4.0); LYMPHOCYTES % (AUTO) 34 % (12-44); MEAN CORPUSCULAR HEMOGLOBIN 30 pg (25-34); MEAN CORPUSCULAR HGB CONC 33 g/dL (32-36); MEAN CORPUSCULAR VOLUME 88 fL (80-99); MEAN PLATELET VOLUME 10.9 fL (9.0-12.2); MONOCYTES # (AUTO) 0.6 10^3/uL (0.0-1.0); MONOCYTES % (AUTO) 5 % (0-12); NEUTROPHILS # (AUTO) 6.5 10^3/uL (1.8-7.8); NEUTROPHILS % (AUTO) 57 % (42-75); PLATELET COUNT 459 10^3/uL (130-400); WHITE BLOOD COUNT 11.4 10^3/uL (4.3-11.0)
[2022-11-09 14:54] LABS: BACTERIA,URINE NEGATIVE /HPF
[2022-11-09 15:03] LABS: INR 0.9 (0.8-1.4)
[2022-11-09 15:04] LABS: CALCIUM 8.5 MG/DL (8.5-10.1)
[2022-11-09 15:06] LABS: TOTAL PROTEIN 7.4 GM/DL (6.4-8.2)
[2022-11-09 15:07] LABS: BILIRUBIN,TOTAL 0.3 MG/DL (0.1-1.0)
[2022-11-09 15:09] LABS: CREATININE SERUM 0.82 MG/DL (0.60-1.30)
--- NOTE | 2022-11-09 15:27 | Diagnostic Imaging Report ---
PROCEDURE: CT urinary tract, rule out kidney stone. TECHNIQUE: Multiple contiguous axial images were obtained through the abdomen and pelvis without the use of intravenous contrast. Auto Exposure Controls were utilized during the CT exam to meet ALARA standards for radiation dose reduction. DATE: November 09, 2022. COMPARISON: CT abdomen pelvis February 17, 2018. INDICATION: 47-year-old female, lower abdominal and back pain. Flank pain. FINDINGS: There are limitations for evaluation of the abdominal organs, neoplastic processes, abscess and limited evaluation of the vasculature relating to the lack of intravenous contrast. There is mild dependent atelectasis in the lower lobes. The heart is not enlarged. There is no identified pericardial effusion. There is diffuse fatty infiltration of the liver. There is focal fatty sparing adjacent to the gallbladder fossa and also in the caudate. There is no identified intrahepatic or extrahepatic bile duct dilation. Noncontrast evaluation of the pancreatic parenchyma is unremarkable. The spleen is normal in size. The adrenal glands are unremarkable. Noncontrast evaluation of the renal parenchyma is unremarkable. The urinary collecting systems are not distended. There is no identified renal or ureteral stone. The urinary bladder is unremarkable. The appendix is not well seen. There is no secondary finding to specifically suggest acute appendicitis. There is no free intraperitoneal air. There is no identified drainable fluid collection. There is no free fluid in the abdomen or pelvis. Mild atherosclerotic calcifications are noted. There is no identified abnormally enlarged lymph node in the abdomen or pelvis meeting CT size criteria for adenopathy. There is no identified acute bony abnormality. IMPRESSION: CT abdomen and pelvis: 1. Diffuse fatty infiltration of the liver. 2. No identified acute abnormality in the abdomen or pelvis. Dictated by: Dictated on workstation # [id number]
[2022-11-09] MEDS ORDERED: KETOROLAC 30 MG/ML VIAL IVP ONE (15:45)
[2022-11-09 17:31] VITALS: BP 105/74
== END 2022-11-09 17:38 | disposition home or self-care (01) ==
LOC: EDUNIT# 14:06 → ER 14:08
DX: E11.9 Type 2 diabetes mellitus without complications (principal); R10.31 Right lower quadrant pain; R10.32 Left lower quadrant pain; E66.9 Obesity, unspecified; Z68.34 Body mass index [BMI] 34.0-34.9, adult; Z88.1 Allergy status to other antibiotic agents
CPT/HCPCS: 36415; 74176; 80053; 81000; 82010; 82947; 83036; 83605; 85025; 85610; 85730; 87040; 87088; 93041

== ENCOUNTER 2023-03-06 20:36 | Emergency (ER) | payer OTHER ==
[2023-03-06 20:44] VITALS: BP 124/83
[2023-03-06] MEDS ORDERED: AMOXICILLIN/Clavulanate 875 MG TABLET PO STA (20:53)
[2023-03-06] MEDS ORDERED: AMOX1TAB12 PO (20:57)
[2023-03-06] MEDS ORDERED: ACHD5005 PO (20:57)
--- NOTE | 2023-03-06 20:58 | ED EENT ---
History of Present Illness General Chief Complaint: Dental Problems/Pain Stated Complaint: TOOTH PAIN Source: patient Exam Limitations: no limitations (BELINDA COOLEY) History of Present Illness Date Seen by Provider: Mar 06, 2023 Time Seen by Provider: 20:54 Initial Comments Patient is a 48-year-old female presents ED with right upper dental pain. Dental pain started yesterday. Described as sharp fairly constant. Pain is worse with eating. She noted some swelling around her gums. Patient denies any facial swelling or redness. She does report some pain in her right jaw. No rating pain to her ear. Has been taking ibuprofen with some improvement. Denies history of previous dental pain. Denies of any fever, chills, nausea, vomiting, diarrhea, sore throat. (BELINDA COOLEY) Allergies and Home Medications Allergies Coded Allergies: ciprofloxacin (Verified Allergy, Unknown, 03/10/18) ciprofloxacin HCl (Verified Allergy, Unknown, 03/10/18) metformin (Verified Allergy, Unknown, 11/09/22) olanzapine (Unverified Adverse Reaction, Mild, rash, 01/15/12) Patient Home Medication List Home Medication List Reviewed: Yes (BELINDA COOLEY) Amoxicillin/Potassium Clav (Amox Tr-K Clv 875-125 mg Tab) 875 Mg-125 Mg Tablet, 1 EACH PO BID Prescribed by: LOREN DICKSON on 03/06/232056 Doxycycline Hyclate (Doxycycline Hyclate) 100 Mg Tablet, 100 MG PO BID Prescribed by: CHALINO LESLIE on 12/13/20 154 Fluoxetine Hcl (Fluoxetine Hcl) 20 Mg Capsule, 1 EACH PO DAILY, (Reported) Entered as Reported by: GONZALEZ REYES on 07/17/12 1613 Hydrocodone/Acetaminophen (Hydrocodone-Acetamin 5-325 mg) 5 Mg-325 Mg Tablet, 1 TAB PO Q4H PRN for PAIN-MODERATE (5-7) Prescribed by: LOREN DICKSON on 03/06/232056 Ibuprofen (Ibuprofen) 600 Mg Tablet, 600 MG PO Q6H PRN for PAIN Prescribed by: KAVON MEYERS on 11/12/13 0152 Lamotrigine (Lamictal) 25 Mg Tab, 25 MG PO DAILY, (Reported) Entered as Reported by: ROMEO HENDERSON on 09/26/13 1650 Meloxicam (Meloxicam) 15 Mg Tablet, 15 MG PO DAILY Prescribed by: CHALINO LESLIE on 05/12/18 1259 Metformin Hcl (Metformin Er 500MG) 500 Mg Tab.sr.24h, 2 EACH PO BID WITH MEALS, (Reported) Entered as Reported by: ROMEO HENDERSON on 09/26/13 165 Naproxen (Naproxen) 500 Mg Tablet, 500 MG PO Q12H Prescribed by: LOREN DICKSON on 02/11/22 1252 Ondansetron (Ondansetron Odt) 4 Mg Tab.rapdis, 4 MG PO Q6H PRN for NAUSEA/VOMITING Prescribed by: CASEY MANCIA on 08/24/19 0618 Ondansetron HCl (Zofran) 4 Mg Tab, 4 MG PO Q4H PRN for nausea and vomiting Prescribed by: PEYMAN SANDERS on 02/17/18 1523 Pantoprazole Sodium (Protonix) 20 Mg Tablet.dr, 20 MG PO DAILY Prescribed by: PEYMAN SANDERS on 02/17/18 1523 Polyethylene Glycol (Miralax 17 Gm Packet) 17 Gm Pack, 17 GM PO DAILY PRN for CONSTIPATION Prescribed by: KAVON MEYERS on 11/12/13 0152 Prednisone (Prednisone) 20 Mg Tab, 40 MG PO DAILY Prescribed by: CHALINO LESLIE on 12/13/20 1544 Quetiapine Fumarate (Seroquel 25 Mg) 25 Mg Tablet, 3 TAB PO HS, (Reported) Entered as Reported by: ROMEO HENDERSON on 09/26/13 165 Sulfamethoxazole/Trimethoprim (Bactrim Ds Tablet) 1 Each Tablet, 1 EACH PO BID Prescribed by: PEYMAN SANDERS on 02/17/18 1523 Review of Systems Review of Systems Constitutional: No chills, No diaphoresis, No malaise, No weakness Eyes: Denies Blurred Vision, Denies Drainage, Denies Decreased Acuity Ears: Denies Dizziness, Denies Pain Nose: denies clots, denies congestion Mouth: denies clots, denies loose teeth, denies swelling, denies bloody discharge, denies clear discharge Throat: denies pain, denies swelling Respiratory: No cough, No dyspnea on exertion Cardiovascular: No chest pain Gastrointestinal: No abdominal pain, No diarrhea, No nausea, No vomiting Musculoskeletal: No back pain, No joint pain Skin: No change in color, No change in hair/nails (BELINDA COOLEY) All Other Systems Reviewed Negative Unless Noted: Yes (BELINDA COOLEY) Past Dsnebaq-[id number]-Yegxpp Hx Immunizations Up To Date Tetanus Booster (TDap): Unknown First/Initial COVID19 Vaccinat: RECEIVED, UNK WHEN Second COVID19 Vaccination Gordon: RECEIVED, UNK WHEN Third COVID19 Vaccination Date: 07/09/21 (BELINDA COOLEY) Seasonal Allergies Seasonal Allergies: No (BELINDA COOLEY) Past Medical History Surgeries: Yes Appendectomy, Tubal Ligation Respiratory: No Cardiac: Yes High Cholesterol, Hypertension Neurological: No Reproductive Disorders: No (PERIODS EVERY 4-5 MONTHS) [employer] History: Tubal Ligation Genitourinary: Yes Bladder Infection Gastrointestinal: Yes Gastroesophageal Reflux, Chronic Constipation Musculoskeletal: No Endocrine: Yes Diabetes, Non-Insulin dep HEENT: No Cancer: No Psychosocial: Yes Sleep Difficulties, Anxiety, Depression Integumentary: No Blood Disorders: No (BELINDA COOLEY) Family Medical History No Pertinent Family Hx (BELINDA COOLEY) Physical Exam Vital Signs Vital Signs - First Documented 03/06/23 20:44 Temp 36.9 Pulse 92 Resp 16 B/P (MAP) 124/83 (97) (KATE GONZÁLES DO) Height, Weight, BMI Height: 5'0" Weight: 178lbs. 0oz. [id number]; 34.00 BMI Method:Stated General Appearance: WD/WN, no apparent distress Eyes: bilateral eye normal inspection, bilateral eye PERRL, bilateral eye EOMI Ears: bilateral ear auricle normal, bilateral ear canal normal, bilateral ear TM normal Nose: normal inspection Mouth/Throat: other (Right upper molar tenderness. Gum swelling erythema. No palpable abscess. No facial swelling or erythema. Oropharynx pain without erythema, swelling, exudate) Neck: non-tender, full range of motion, supple, normal inspection Cardiovascular: regular rate, rhythm, no edema, no gallop, no JVD Respiratory: chest non-tender, lungs clear, normal breath sounds, no respiratory distress Gastrointestinal: normal bowel sounds, non tender, soft, no organomegaly 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: tailercpa II-XII nml as tested, no motor/sensory deficits, alert, normal mood/affect, oriented x 3 Skin: normal color, warm/dry (BELINDA COOLEY) Departure Communication (PCP) Patient is a 48-year-old female who presents to ED with right upper dental pain. Dental pain since yesterday. Describes sharp pain with eating. On exam she does have previous dental work. She has right upper molar tenderness with gum swelling. No fluctuant mass at this time. Mild gingivitis. No facial swelling or erythema. Oropharynx pain with erythema, swelling, exudate. No cervical adenopathy. Bilateral TMs clear. Concerning for potential periapical abscess. No evidence of Dental abscess at this time. Discussed with patient this may develop into a prominent abscess that may require incision and drainage near the tooth. Did offer dental block she refused. We will start patient on Augmentin. She was given a dose here. Anti-inflammatories for pain. She received a dose of pain medication here. Recommend ibuprofen. If any worsening pain we will provide a few days worth of medication for breakthrough pain. Recommend follow- up with your dentist early next week. If any worsening symptoms such as increased pain, facial swelling or redness to return back to ED. (BELINDA COOLEY) Impression Primary Impression: Tooth ache Disposition: 01 HOME, SELF-CARE Condition: Stable Departure-Patient Inst. Decision time for Depature: 20:56 (BELINDA COOLEY) Referrals: [facility] (PCP/Family) Primary Care Physician Patient Instructions: Dental Pain Add. Discharge Instructions: Recommend follow-up with your dentist early next week. Antibiotics pain medication as prescribed. If any worsening symptoms return back to ED All discharge instructions reviewed with patient and/or family. Voiced understanding. Scripts Hydrocodone/Acetaminophen (Hydrocodone-Acetamin 5-325 mg) 5 Mg-325 Mg Tablet 1 TAB PO Q4H PRN for PAIN-MODERATE (5-7), #6 TAB Prov: BELINDA COOLEY 03/06/23 Amoxicillin/Potassium Clav (Amox Tr-K Clv 875-125 mg Tab) 875 Mg-125 Mg Tablet 1 EACH PO BID for 7 Days, #14 TAB Prov: BELINDA COOLEY 03/06/23 Work/School Note: Work Release Form Date Seen in the Emergency Department: Mar 06, 2023 Return to Work: Mar 08, 2023 ATTENDING PHYSICIAN NOTE: I WAS PHYSICALLY PRESENT ER PHYSICIAN, BUT I WAS NOT INVOLVED IN ANY DECISION MAKING OR ANY CARE OF THIS PATIENT AND I AM NOT COLLABORATING PHYSICIAN. (KATE GONZÁLES DO) BELINDA COOLEY Mar 06, 2023 20:58 KATE GONZÁLES DO Mar 07, 2023 18:16
[2023-03-06] MEDS ORDERED: HYDROcodone/ACETAMINOPHEN 5 MG/325 MG TABLET PO ONE (21:00)
== END 2023-03-06 21:15 | disposition home or self-care (01) ==
LOC: EDUNIT# 20:36 → ER 20:40
DX: K08.89 Other specified disorders of teeth and supporting structures (principal); Z28.310 Unvaccinated for COVID-19; Z88.1 Allergy status to other antibiotic agents
CPT/HCPCS: 99283